=== PATIENT | male | born 1940 | race Caucasian/White ===

== ENCOUNTER → 2017-03-03 | Outpatient (CLI) | payer MEDICARE, OTHER ==
--- NOTE | 2017-03-04 10:10 | P.ARTDOP ---
Arterial Doppler LOWER EXTREMITY ARTERIAL DOPPLER: DATE OF SERVICE: 03/03/17 Reason for study: numbness and discoloration of the feet Doppler waveforms: atypical throughout on the right and to the popliteal on the left. Below the popliteal it is flat line on the left. Pulse volume recording: normal configuration to the right calf but blunted at the right ankle. Normal configuration at the left thigh and mildly blunted at the left calf and knee severely blunted at the ankle on the left Pressure gradients: above the low thigh on the right no pressure readings down on the left Ankle-brachial indices: 0.92 on the right and nothing recorded on the left Impression: []Suspect mild right fem-pop disease. Severe distal disease on the left. Clinical correlation recommended.
== END | disposition home or self-care (01) ==
LOC: RADUSWWP 10:45
PROVIDERS: ATTEND Internal Medicine
DX: I73.9 Peripheral vascular disease, unspecified (principal)
CPT/HCPCS: 93923

== ENCOUNTER 2017-03-23 06:22 | Day surgery (SDC) | payer MEDICARE, OTHER ==
[2017-03-18 15:49] VITALS: BMI 28.3
--- NOTE | 2017-03-19 11:07 | HP ---
DATE OF ADMISSION: CHIEF COMPLAINT: Left foot pain. HISTORY: The patient had previous complaints and was taken care of at the ID with stents in the left leg. He came in complaining of about a week to 10 days of typical rest pain of the left foot. There is some numbness and when he elevates it at night in bed he has pain in the foot. A lower extremity arterial Doppler done at [facility] shows very poor flow to the right foot. Medical history is positive for hypertension and arthritis. Surgical history is positive for multiple peripheral angioplasties on the left leg. Social history is positive for remote history of cigarette smoking. Current medications include: 1. Hydrochlorothiazide. 2. Plavix. 3. Aspirin. 4. Simvastatin. He has no known allergies. Family history is noncontributory. REVIEW OF SYSTEMS: Other than his chief complaint, he is totally unremarkable. Physical examination reveals a pleasant, alert, oriented, 76-year-old gentleman in no distress. He has no cervical mass or adenopathy, oral or ocular lesions or audible bruits. His lungs are well-aerated. His heart is in a regular rhythm. I hear no murmur. His abdomen is soft and benign. He has normal bilateral femoral pulses. He has no pulses below the femorals on either side. The ( )foot is slightly cooler than the ( ), but is quite viable in appearance. IMPRESSION: Occlusion of the previous interventions the left leg with rest pain left leg. Patient is to be admitted on March 23 for aortogram with runoff by Dr. Thapa. I have explained the operation/procedure to the patient, including the risks, benefits, side effects, alternative therapies (including not receiving the proposed treatment or service), the likelihood of the patient achieving his/her goals, and potential recuperation problems for the procedure/sedation/analgesia, as well as any blood products, if indicated. I also explained to the patient the risks, benefits, and side effects of the alternatives, as well as the risks related to not receiving the proposed procedure, care treatment or services.
[~2017-03-23 06:22] MED LIST: ALPRAZolam 0.25 MG TAB PO PRN; SODIUM CHLORIDE 0.9% 1,000 ML in EMPTY BAG 1 BAG IV ONE
[2017-03-23 07:07] VITALS: TEMP 98.1
[2017-03-23 07:08] LABS: Basophils # (A) 0.1 k/uL (0-0.2); Basophils % (A) 1 %; CH 32.8; CHCM 34.4; Eosinophils # (A) 0.5 k/uL (0-0.7); Eosinophils % (A) 9 %; HDW 2.74; HGB 14.4 gm/dL (13.0-17.5); Luc # (Auto) 0.15; Luc % (Auto) 3; Lymphocytes # (A) 1.3 k/uL (1.0-4.8); Lymphocytes % (A) 22 %; MCH 32.7 pg (25.0-35.0); MCHC 34.1 g/dL (31.0-37.0); MCV 95.8 fL (80.0-100.0); Mean Platelet Volume 7.8; Monocytes # (A) 0.4 k/uL (0-1.0); Monocytes % (A) 6 %; Neutrophils # (A) 3.4 k/uL (1.3-7.7); Neutrophils % (A) 59 %; RBC 4.39 m/uL (4.30-5.90); RDW 13.4 % (11.5-15.5); WBC 5.7 k/uL (3.8-10.6); WBC (Perox) 5.75
[2017-03-23 07:21] LABS: Anion Gap 11 mmol/L; Blood Urea Nitrogen 25 mg/dL (9-20); Calcium 9.1 mg/dL (8.4-10.2); Carbon Dioxide 26 mmol/L (22-30); Chloride 105 mmol/L (98-107); Glucose 105 mg/dL (74-99); Non-African American GFR(MDRD) >60 (>60 ml/min/1.73 sqM); Potassium 3.8 mmol/L (3.5-5.1); Sodium 142 mmol/L (137-145)
[2017-03-23] MEDS ORDERED: LIDOCAINE 2% INJ 20 MG/ML (20 ML MDV) ONE (07:29)
[2017-03-23] MEDS ORDERED: MIDAZOLAM 2 MG/2 ML VIAL ONE (07:29)
[2017-03-23] MEDS ORDERED: MIDAZOLAM 2 MG/2 ML VIAL IVP ONE (07:56)
[2017-03-23] MEDS ORDERED: LIDOCAINE 2% INJ 20 MG/ML SQ ONE (08:00)
[2017-03-23] MEDS ORDERED: fentaNYL (PF) 50 MCG/ML 2 ML AMP ONE (08:00)
[2017-03-23] MEDS ORDERED: fentaNYL (PF) 50 MCG/ML 2 ML AMP IV ONE (08:02)
[2017-03-23] MEDS ORDERED: SODIUM CHLORIDE 0.9% 1,000 ML IV SCH (08:30)
[2017-03-23] MEDS ORDERED: IODIXANOL 320 MG/ML 100 ML INTRAARTER ONE (08:34)
[2017-03-23 14:45] VITALS: BP 150/69; PULSE 64; RESP 18
--- NOTE | 2017-03-23 16:36 | PCN ---
DATE OF PROCEDURE: 03/23/2017 PERFORMING PHYSICIAN: Eloy Thapa M.D., retail analytics manager. PROCEDURES PERFORMED: 1. Abdominal aortogram. 2. Bilateral lower extremity runoff. 3. Selective left external iliac artery angiogram. 4. Selective right common femoral artery angiogram. INDICATION: This is a pleasant 76-year-old gentleman who sees Dr. Medina as an outpatient who was diagnosed with critical limb ischemia and resting pain involving the left foot. He was brought in today to undergo a peripheral angiogram. APPROACH: Right common femoral artery. COMPLICATIONS: None. LEVEL OF SEDATION: Moderate, with sedation length about half an hour. PROCEDURE DESCRIPTION: After obtaining informed consent, the patient was brought to the cardiac analyst microbiology lab. The right common femoral artery was cannulated using micropuncture technique. Under ultrasound guidance, the micropuncture wire passed easily. Then I placed a 5 Maori sheath in the right common femoral artery. Subsequently I did an abdominal aortogram and bilateral lower extremity runoff using a pigtail catheter, which was initially placed at the level of the renal arteries. Then it was pulled into above the bifurcation of the aorta. I did select the left external iliac artery to do left lower extremity runoff. Then I injected through the sheath in the right groin to do right leg runoff. The procedure was completed without any complications. SELECTIVE PERIPHERAL ANGIOGRAM: 1. Aorta is calcified with mild disease only. 2. Common iliac arteries. The right and left common external iliac arteries are angiographically normal. 3. External iliac arteries. The right and left external iliac arteries are angiographically normal. 4. Internal iliac arteries. The right and left internal iliac arteries are angiographically normal as well. 5. Femoral arteries. The right and left femoral arteries are angiographically normal. 6. Profundae. The right and left profundae are patent. 7. The superficial femoral arteries are occluded bilaterally. There is a long area of occlusion on the left side which seems to be in-stent occlusion and a short area of occlusion on the right side. 8. Below the knee. There is 3-vessel runoff below the knee bilaterally. CONCLUSION: 1. Mild aortoiliac disease. 2. Severe femoropopliteal disease with occluded bilateral superficial femoral arteries.
== END 2017-03-23 15:30 | disposition home or self-care (01) ==
LOC: CATHCVL 06:22
PROVIDERS: ATTEND Internal Medicine Interventional Cardiology
DX: I77.9 Disorder of arteries and arterioles, unspecified (principal); I70.0 Atherosclerosis of aorta; I99.8 Other disorder of circulatory system; I73.9 Peripheral vascular disease, unspecified; I10 Essential (primary) hypertension; M19.90 Unspecified osteoarthritis, unspecified site; Z79.02 Long term (current) use of antithrombotics/antiplatelets; Z79.82 Long term (current) use of aspirin; Z79.899 Other long term (current) drug therapy; Z87.891 Personal history of nicotine dependence
CPT/HCPCS: 36246; 75625; 75716; 76937; 80048; 85025; 99152; 99153; C1894; C1769 ×4; J2001; J2250; Q9967; J3010

== ENCOUNTER → 2017-04-02 | Outpatient (CLI) | payer MEDICARE, OTHER ==
[2017-04-02 10:45] LABS: INR 1.1 (<1.1); Partial Thromboplastin Time 25.1 sec (22.0-30.0); Prothrombin Time 11.2 sec (9.0-12.0)
== END | disposition home or self-care (01) ==
LOC: LABPAT 09:59
PROVIDERS: ATTEND Thoracic Surgery (Cardiothoracic Vascular Surgery)
DX: Z01.810 Encounter for preprocedural cardiovascular examination (principal); Z01.818 Encounter for other preprocedural examination; Z51.81 Encounter for therapeutic drug level monitoring; Z79.01 Long term (current) use of anticoagulants
CPT/HCPCS: 85610; 85730

== ENCOUNTER 2017-04-08 07:33 | Day surgery (SDC) | payer MEDICARE, OTHER ==
[2017-04-07 08:55] VITALS: BMI 28.3
[~2017-04-08 07:33] MED LIST changes: +ALPRAZolam 0.5 MG TAB PO PRN; +ASPIRIN 325 MG TAB PO STA; +ATORVASTATIN 80 MG TAB PO STA; +NITROGLYCERIN SL TABS 0.4 MG TAB SUBLINGUAL PRN
[2017-04-08 07:48] VITALS: TEMP 97.5
[2017-04-08] MEDS ORDERED: HYDROmorphone 1 MG/ML 1 ML SYRINGE ONE (08:15)
[2017-04-08] MEDS ORDERED: VERAPAMIL 2.5 MG/ML 2 ML AMP ONE (08:35)
[2017-04-08] MEDS ORDERED: MIDAZOLAM 2 MG/2 ML VIAL ONE (08:35)
[2017-04-08] MEDS ORDERED: LIDOCAINE 2% INJ 20 MG/ML (20 ML MDV) ONE (08:35)
[2017-04-08] MEDS ORDERED: diphenhydrAMINE 50 MG/ML 1 ML VIAL ONE (08:35)
[2017-04-08] MEDS ORDERED: HEPARIN SODIUM 1,000 UNIT/ML VIAL ONE (08:35)
[2017-04-08] MEDS ORDERED: MIDAZOLAM 2 MG/2 ML VIAL IV ONE (08:50)
[2017-04-08] MEDS ORDERED: diphenhydrAMINE 50 MG/ML 1 ML VIAL IVP ONE (08:50)
[2017-04-08] MEDS ORDERED: LIDOCAINE 2% INJ 20 MG/ML SQ ONE (08:56)
[2017-04-08] MEDS ORDERED: VERAPAMIL SYRINGE (5 MG/10 ML) INTRAARTER ONE (08:56)
[2017-04-08] MEDS ORDERED: BIVALIRUDIN BOLUS 250 MG/50 ML IV ONE (09:19)
[2017-04-08] MEDS ORDERED: BIVALIRUDIN 250 MG in SODIUM CHLORIDE 0.9% 35 ML IV ONE (09:19)
[2017-04-08] MEDS ORDERED: HYDROmorphone 2 MG/ML 1 ML SYRINGE ONE (09:24)
[2017-04-08] MEDS ORDERED: HYDROmorphone 2 MG/ML 1 ML SYRINGE IVP ONE (09:24)
[2017-04-08] MEDS ORDERED: ADENOSINE 90 MG in SODIUM CHLORIDE 0.9% 60 ML IVP ONE (09:28)
[2017-04-08] MEDS ORDERED: IOHEXOL 350 MG/ML 125ML BOTTLE INJ ONE (09:45)
[2017-04-08] MEDS ORDERED: RX INFO: IV CONTRAST WAS GIVEN 1 EACH MISC MISCELLANE PRN (09:56)
[2017-04-08] MEDS ORDERED: SODIUM CHLORIDE 0.9% 1,000 ML IV SCH (10:00)
[2017-04-08 11:13] VITALS: PULSE 50; RESP 16
[2017-04-08 11:59] VITALS: BP 141/60
--- NOTE | 2017-04-08 20:27 | CC ---
DATE OF SERVICE: Performing physician: Eloy Thapa M.D., software development intern. PROCEDURE PERFORMED: 1. Selective right and left coronary angiogram. 2. Left heart catheterization. 3. Fractional flow reserve of the left circumflex coronary artery. 4. Fractional flow reserve of the LAD as well. INDICATION: This is a pleasant 76-year-old gentleman who is known to have severe peripheral arterial disease and evidence of critical limb ischemia who was scheduled to have femoropopliteal bypass surgery by Dr. Vences in the next couple of days. He underwent myocardial perfusion imaging stress test and that showed anterior ischemia and the patient was brought today to undergo a heart catheterization. Approach: Right radial artery. COMPLICATIONS: None. Level of sedation: Moderate with a sedation length of 50 minutes. PROCEDURE DESCRIPTION: After obtaining an informed consent, the patient was brought to the cardiac hot plate plywood press laborer. Right radial artery was cannulated using micropuncture technique. The micropuncture wire passed easily, then I placed a 6 [place] Island[place] sheath in the right radial artery. Subsequently I gave the patient 2 mg of verapamil IA and 3000 units of heparin IV. After that, I did selective right and left coronary angiogram using JR4 and JL 3.5 catheters. After that, I did a left heart catheterization using JL 3.5 catheter, which crossed aortic valve and then I did pullback. After that, I did an FFR of the left circumflex and LAD. Please see separate paragraph for that. SELECTIVE CORONARY ANGIOGRAM: 1. The right coronary artery is a large-caliber vessel and it is a dominant vessel. It has mild disease in the proximal portion. The mid portion is angiographically normal and gives rise into a small acute marginal branch, and the RCA distally appeared to be angiographically normal and bifurcates into PDA and PLV branches; both are angiographically normal. 2. The left main is calcified but otherwise angiographically normal. It bifurcates into the left circumflex and left anterior descending artery. 3. Circumflex is a large-caliber vessel and it is a nondominant vessel. The proximal left circumflex appeared to have mild disease only. The mid left circumflex appeared to have a lesion long tubular lesion in the range of 60%, but by FFR came in to be ischemic at 0.8. The left circumflex in the midportion gives rise into a large acute obtuse marginal branch, which seems to be angiographically normal and distally become angiographically normal. 4. Left anterior descending artery: The proximal LAD is heavily calcified with a lesion that seems to be in the range of 50% to 60%. The mid LAD and distal LAD appeared to be angiographically normal. The LAD gives rises into 2 small diagonal branches; they are angiographically normal. HEMODYNAMICS: The left ventricular end-diastolic pressure was 20 mmHg and no gradient was identified across the aortic valve. FFR of the left circumflex and LAD: Anticoagulation was initiated using Angiomax. Subsequently and after zeroing the Doppler wire and equalizing between the Doppler wire and the guiding catheter, which was JL 3.5 guiding catheter, we did an FFR per IV adenosine infusion and an FFR came in to be on the left circumflex at 0.78, which is ischemic. I did an FFR of the LAD and that came in to be 0.58 which is a bit questionable and I had some issues with the Doppler wire at that point. CONCLUSION: 1. Calcified right and left coronary systems. 2. Mildly disease involving the right coronary artery. 3. Intermediate disease involving the left circumflex. 4. Intermediate disease involving the LAD. 5. Ischemic FFR of the left circumflex which came in to be at 0.78. 6. Questionable FFR of the LAD as well. POSTPROCEDURE MANAGEMENT: 1. Maximize medical treatment at this point. 2. The patient will pursue his bypass surgery. 3. Bring the patient back after the surgery to undergo stenting of the left circumflex and to take further look on the LAD.
== END 2017-04-08 15:57 | disposition home or self-care (01) ==
LOC: CATHCVL 07:33
PROVIDERS: ATTEND Internal Medicine Interventional Cardiology
DX: I25.110 Atherosclerotic heart disease of native coronary artery with unstable angina pectoris (principal); R94.39 Abnormal result of other cardiovascular function study; I73.9 Peripheral vascular disease, unspecified; I77.89 Other specified disorders of arteries and arterioles; I10 Essential (primary) hypertension; E78.00 Pure hypercholesterolemia, unspecified; Z82.49 Family history of ischemic heart disease and other diseases of the circulatory system; Z79.02 Long term (current) use of antithrombotics/antiplatelets; Z79.82 Long term (current) use of aspirin; Z79.899 Other long term (current) drug therapy; Z87.891 Personal history of nicotine dependence
CPT/HCPCS: 93571; 93572; 93458; 99152; 99153 ×3; C1887; C1894; C1769 ×2; J2001; J2250; J1170 ×2; J1200; J0583; J0153; J1644; Q9967

== ENCOUNTER 2017-05-08 10:43 | Inpatient (IN) | payer MEDICARE, OTHER ==
[2017-05-08] MEDS ORDERED: SODIUM CHLORIDE 0.9% 1,000 ML IV STA (11:01)
--- NOTE | 2017-05-08 11:04 | ED ---
General Adult HPI <Vincent Angel - Last Filed: 05/08/17 14:59> - General Source: patient, RN notes reviewed Mode of arrival: wheelchair Limitations: no limitations <Jarvis Menjivar - Last Filed: 05/08/17 15:07> - General Chief complaint: Recheck/Abnormal Lab/Rx Stated complaint: post op infection Time Seen by Provider: 05/08/17 10:52 - History of Present Illness Initial comments: Patient 76-year-old male who presents emergency room today with a chief complaint of outpatient treatment failure of a infected surgical incision. Patient does admit that he did have bypass performed of the left leg due to arterial occlusion approximately 7 weeks ago. He states he noticed a infection to the incision site approximately a week after the surgery. States he went to his family doctor started him on antibiotics. He states been taking clindamycin as prescribed. States he had a follow-up appointment with his PCP this morning and was advised coming here to the emergency room for admission due to outpatient treatment failure. States that the incision site has opened up and become larger. He denies any other complaints or symptoms. Patient denies any recent fever, chills, shortness of breath, chest pain, back pain, abdominal pain, nausea or vomiting, numbness or tingling, dysuria or hematuria, constipation or diarrhea, headaches or visual changes, or any other complaints. (Jarvis Menjivar) - Related Data Home Medications Medication Instructions Recorded Confirmed Aspirin [Adult Low Dose Aspirin EC] 81 mg PO DAILY 03/18/17 05/08/17 Clopidogrel Bisulfate [Plavix] 75 mg PO DAILY 03/18/17 05/08/17 Dorzolamide/Timolol/Pf [Cosopt Pf 1 applicator BOTH EYES BID 03/18/17 05/08/17 2%/5% Ophth Droperette] Hydrochlorothiazide 12.5 mg PO QAM 03/18/17 05/08/17 Latanoprost [Xalatan 0.005%] 1 drop BOTH EYES DAILY@1400 03/18/17 05/08/17 Simvastatin [Zocor] 20 mg PO HS 03/18/17 05/08/17 Clindamycin HCl 300 mg PO Q8H 05/08/17 05/08/17 Mupirocin 2% Oint [Bactroban 2% 1 applic TOPICAL BID 05/08/17 05/08/17 Oint] oxyCODONE-APAP 5-325MG [Percocet 1 tab PO Q4H PRN 05/08/17 05/08/17 5-325 mg] Allergies Allergy/AdvReac Type Severity Reaction Status Date / Time dipyridamole Allergy JOINT AND Verified 05/08/17 10:51 MUSCLE PAIN Review of Systems ROS Other: All systems not noted in ROS Statement are negative. <Vincent Angel - Last Filed: 05/08/17 14:59> ROS Other: All systems not noted in ROS Statement are negative. <Jarvis Menjivar - Last Filed: 05/08/17 15:07> ROS Statement: Those systems with pertinent positive or pertinent negative responses have been documented in the HPI. Past Medical History Past Medical History: CVA/TIA, Deep Vein Thrombosis (DVT), Eye Disorder, Hypertension, Osteoarthritis (OA), Vascular Disorder Additional Past Medical History / Comment(s): TIA long time ago, PVD, swelling of left foot, uses walker or scooter for longer distances, GLAUCOMA History of Any Multi-Drug Resistant Organisms: None Reported Additional Past Surgical History / Comment(s): 3 stents in left leg, angioplasty nicole legs, aortogram, nicole cataracts, AORTPGRAM Past Anesthesia/Blood Transfusion Reactions: No Reported Reaction Past Psychological History: No Psychological Hx Reported Smoking Status: Former smoker Past Alcohol Use History: Occasional Past Drug Use History: None Reported - Past Family History Mother Family Medical History: No Reported History <Jarvis Menjivar - Last Filed: 05/08/17 15:07> General Exam <Vincent Angel - Last Filed: 05/08/17 14:59> Limitations: no limitations <Jarvis Menjivar - Last Filed: 05/08/17 15:07> - General Exam Comments Initial Comments: General: The patient is awake and alert, in no distress, and does not appear acutely ill. Eye: Pupils are equal, round and reactive to light, extra-ocular movements are intact. No nystagmus. There is normal conjunctiva bilaterally. No signs of icterus. Ears, nose, mouth and throat: There are moist mucous membranes and no oral lesions. Neck: The neck is supple, there is no tenderness or JVD. Cardiovascular: There is a regular rate and rhythm. No murmur, rub or gallop is appreciated. Respiratory: Lungs are clear to auscultation, respirations are non-labored, breath sounds are equal. No wheezes, stridor, rales, or rhonchi. Gastrointestinal: Soft, non-distended, non-tender abdomen without masses or organomegaly noted. There is no rebound or guarding present. No CVA tenderness. Bowel sounds are unremarkable. Musculoskeletal: Normal ROM, no tenderness. Strength 5/5. Sensation intact. Pulses equal bilaterally 2+. Neurological: A&O x 3. CN II-XII intact, There are no obvious motor or sensory deficits. Coordination appears grossly intact. Speech is normal. Skin: Patient does have surgical incision that is dehiscence measures approximately 6-7 cm in length. There is a yellow drainage with mild redness erythema around the incision site. Psychiatric: Cooperative, appropriate mood & affect, normal judgment. (Jarvis Menjivar) Course <Vincent Angel - Last Filed: 05/08/17 14:59> <Jarvis Menjivar - Last Filed: 05/08/17 15:07> Vital Signs 05/08/17 05/08/17 10:47 12:05 Temperature 97 F L 97.0 F L Pulse Rate 68 68 Respiratory 18 18 Rate Blood Pressure 147/68 147/65 O2 Sat by Pulse 98 98 Oximetry - Reevaluation(s) Reevaluation #1: 05/08/17 13:49 Case was discussed with Dr. Engel who recommends calling Dr. Latif and will admit if he is okay with that. Case was discussed with Dr. Latif, who will come evaluate. 05/08/17 13:59 Dr. Latif did evaluate the patient. It turns out patient does see a vascular surgeon does surgeries at the hospital here, Dr. Villasenor and he will be paged. 05/08/17 14:54 Case was discussed with Dr. Mccollum who states he is out of town and recommends calling Dr. Medina. If he is not available. Patient transferred back to [place]. 05/08/17 14:59 Case was discussed with Dr. Medina who will consult and does want medical admission. Consult with Dr. Hedrick. (Vicnent Angel) Medical Decision Making - Lab Data Result diagrams: 05/08/17 12:00 05/08/17 12:00 <Vincent Angel - Last Filed: 05/08/17 14:59> - Lab Data Result diagrams: 05/08/17 12:00 05/08/17 12:00 <Jarvis Menjivar - Last Filed: 05/08/17 15:07> - Lab Data Lab Results 05/08/17 05/08/17 Range/Units 12:00 12:00 WBC 4.8 (3.8-10.6) k/uL RBC 3.96 L (4.30-5.90) m/uL Hgb 12.5 L (13.0-17.5) gm/dL Hct 36.7 L (39.0-53.0) % MCV 92.8 (80.0-100.0) fL MCH 31.6 (25.0-35.0) pg MCHC 34.1 (31.0-37.0) g/dL RDW 15.1 (11.5-15.5) % Plt Count 252 (150-450) k/uL Neutrophils % 67 % Lymphocytes % 16 % Monocytes % 6 % Eosinophils % 7 % Basophils % 1 % Neutrophils # 3.2 (1.3-7.7) k/uL Lymphocytes # 0.8 L (1.0-4.8) k/uL Monocytes # 0.3 (0-1.0) k/uL Eosinophils # 0.4 (0-0.7) k/uL Basophils # 0.0 (0-0.2) k/uL Sodium 142 (137-145) mmol/L Potassium 3.6 (3.5-5.1) mmol/L Chloride 102 (98-107) mmol/L Carbon Dioxide 28 (22-30) mmol/L Anion Gap 12 mmol/L BUN 25 H (9-20) mg/dL Creatinine 1.02 (0.66-1.25) mg/dL Est GFR (MDRD) Af Amer >60 (>60 ml/min/1.73 sqM) Est GFR (MDRD) Non-Af >60 (>60 ml/min/1.73 sqM) Glucose 105 H (74-99) mg/dL Calcium 9.4 (8.4-10.2) mg/dL Total Bilirubin 0.8 (0.2-1.3) mg/dL AST 24 (17-59) U/L ALT 26 (21-72) U/L Alkaline Phosphatase 73 (38-126) U/L Total Protein 7.2 (6.3-8.2) g/dL Albumin 4.4 (3.5-5.0) g/dL Disposition <Vincent Angel - Last Filed: 05/08/17 14:59> Time of Disposition: 15:01 <Jarvis Menjivar - Last Filed: 05/08/17 15:07> Clinical Impression: Postoperative wound infection Disposition: ADMITTED IP TO THIS HOSP Condition: Stable Referrals: Stefanie Mccullough MD [Primary Care Provider] - 1-2 days
[2017-05-08] MEDS ORDERED: AMPICILLIN-SULBACTAM 3 GM in SODIUM CHLORIDE 0.9% 100 ML IVPB STA (11:23)
[2017-05-08] MEDS ORDERED: IV VANCOMYCIN PER PHARMACY 1 EACH MISC MISCELLANE PRN (11:23)
[2017-05-08] MEDS ORDERED: VANCOMYCIN 1,250 MG in SODIUM CHLORIDE 0.9% 250 ML IVPB ONE (11:45)
[2017-05-08 12:17] LABS: ALT 26 U/L (21-72); AST 24 U/L (17-59); Alkaline Phosphatase 73 U/L (38-126); Anion Gap 12 mmol/L; Blood Urea Nitrogen 25 mg/dL (9-20); Calcium 9.4 mg/dL (8.4-10.2); Carbon Dioxide 28 mmol/L (22-30); Chloride 102 mmol/L (98-107); Glucose 105 mg/dL (74-99); Non-African American GFR(MDRD) >60 (>60 ml/min/1.73 sqM); Potassium 3.6 mmol/L (3.5-5.1); Sodium 142 mmol/L (137-145); Total Bilirubin 0.8 mg/dL (0.2-1.3); Total Protein 7.2 g/dL (6.3-8.2)
[2017-05-08 12:22] LABS: Basophils % (A) 1 %; CHCM 33.5; Eosinophils # (A) 0.4 k/uL (0-0.7); Eosinophils % (A) 7 %; HCT 36.7 % (39.0-53.0); HDW 3.26; HGB 12.5 gm/dL (13.0-17.5); Luc # (Auto) 0.12; Luc % (Auto) 3; Lymphocytes # (A) 0.8 k/uL (1.0-4.8); Lymphocytes % (A) 16 %; MCH 31.6 pg (25.0-35.0); MCHC 34.1 g/dL (31.0-37.0); MCV 92.8 fL (80.0-100.0); Mean Platelet Volume 7.7; Monocytes # (A) 0.3 k/uL (0-1.0); Monocytes % (A) 6 %; Neutrophils # (A) 3.2 k/uL (1.3-7.7); Neutrophils % (A) 67 %; RBC 3.96 m/uL (4.30-5.90); RDW 15.1 % (11.5-15.5); WBC 4.8 k/uL (3.8-10.6); WBC (Perox) 4.93
--- NOTE | 2017-05-08 14:09 | US ---
EXAMINATION TYPE: US venous doppler duplex LE LT DATE OF EXAM: 05/08/2017 1:10 PM COMPARISON: NONE CLINICAL HISTORY: Pain. Left leg edema SIDE PERFORMED: Left TECHNIQUE: The lower extremity deep venous system is examined utilizing real time linear array sonog lillie with graded compression, doppler sonography and color-flow sonography. VESSELS IMAGED: External Iliac Vein (EIV) Common Femoral Vein Deep Femoral Vein Greater Saphenous Vein * Femoral Vein Popliteal Vein Small Saphenous Vein * Proximal Calf Veins (* superficial vessels) Exam somewhat limited in groin area do to surgery patient had open wounds unable to compress hard, co loree flow and spontaneous flow visualized. Left Leg: Negative for DVT No popliteal fossa lesion is seen. IMPRESSION: THIS EXAMINATION IS NEGATIVE FOR DVT WITHIN THE LEFT LEG.
[2017-05-08] MEDS ORDERED: NALOXONE 0.4 MG/ML 1 ML VIAL IV PRN (15:02)
[2017-05-08] MEDS ORDERED: HYDROcodone/APAP 5-325MG 1 EACH TAB PO PRN (15:02)
[2017-05-08] MEDS ORDERED: ONDANSETRON 4 MG/2 ML VIAL IVP PRN (15:02)
[2017-05-08] MEDS ORDERED: SODIUM CHLORIDE 0.9% 1,000 ML IV ONE (15:02)
[2017-05-08] MEDS ORDERED: oxyCODONE-APAP 5-325MG 1 EACH TAB PO PRN (15:05)
[2017-05-08] MEDS: HYDROmorphone 1 MG/ML 1 ML SYRINGE IV PRN (16:42)
[2017-05-08] MEDS: AMPICILLIN-SULBACTAM 3 GM in SODIUM CHLORIDE 0.9% 100 ML IVPB SCH (21:39)
[2017-05-08] MEDS: ATORVASTATIN 10 MG TAB PO SCH (21:40)
[2017-05-09] MEDS: HYDROmorphone 1 MG/ML 1 ML SYRINGE IV PRN ×3 (01:18→21:49)
[2017-05-09] MEDS: AMPICILLIN-SULBACTAM 3 GM in SODIUM CHLORIDE 0.9% 100 ML IVPB SCH ×3 (04:11→19:56)
[2017-05-09 07:47] LABS: Basophils % (A) 1 %; CH 30.7; CHCM 32.4; Eosinophils # (A) 0.4 k/uL (0-0.7); Eosinophils % (A) 7 %; HCT 34.3 % (39.0-53.0); HDW 3.26; HGB 11.2 gm/dL (13.0-17.5); Hypochromasia Slight; Luc # (Auto) 0.11; Luc % (Auto) 2; Lymphocytes % (A) 21 %; MCH 31.2 pg (25.0-35.0); MCHC 32.8 g/dL (31.0-37.0); MCV 95.3 fL (80.0-100.0); Monocytes # (A) 0.3 k/uL (0-1.0); Monocytes % (A) 6 %; Neutrophils # (A) 2.9 k/uL (1.3-7.7); Neutrophils % (A) 62 %; RDW 14.9 % (11.5-15.5); WBC 4.7 k/uL (3.8-10.6); WBC (Perox) 4.85
[2017-05-09 07:59] LABS: ALT 23 U/L (21-72); AST 21 U/L (17-59); Alkaline Phosphatase 70 U/L (38-126); Anion Gap 8 mmol/L; Blood Urea Nitrogen 20 mg/dL (9-20); Calcium 8.6 mg/dL (8.4-10.2); Carbon Dioxide 27 mmol/L (22-30); Chloride 105 mmol/L (98-107); Glucose 99 mg/dL (74-99); Non-African American GFR(MDRD) >60 (>60 ml/min/1.73 sqM); Potassium 3.6 mmol/L (3.5-5.1); Sodium 140 mmol/L (137-145); Total Bilirubin 0.6 mg/dL (0.2-1.3)
[2017-05-09] MEDS: ASPIRIN 81 MG CHEW PO SCH (08:58)
[2017-05-09] MEDS: DORZOLAMIDE-TIMOLOL 2-0.5% DROPS 10 ML BTL BOTH EYES SCH ×2 (08:58→21:48)
[2017-05-09] MEDS: HYDROCHLOROTHIAZIDE 25 MG TAB PO SCH (08:58)
[2017-05-09] MEDS ORDERED: VANCOMYCIN 1,250 MG in SODIUM CHLORIDE 0.9% 250 ML IVPB SCH (09:00)
--- NOTE | 2017-05-09 10:14 | P.GSCN ---
History of Present Illness Consult date: 05/09/17 Reason for Consult: Postoperative infection Requesting physician: Sita Engel History of present illness: This patient is about 10-14 days post-left fem-pop in situ bypass. He recently developed drainage and swelling in the left groin. Patient denies chills. His left leg has improved dramatically since his bypass otherwise. Review of Systems All systems: negative Past Medical History Past Medical History: CVA/TIA, Deep Vein Thrombosis (DVT), Eye Disorder, Hypertension, Osteoarthritis (OA), Vascular Disorder Additional Past Medical History / Comment(s): TIA long time ago, PVD, swelling of left foot, uses walker or scooter for longer distances, GLAUCOMA History of Any Multi-Drug Resistant Organisms: None Reported Past Surgical History: Heart Catheterization Additional Past Surgical History / Comment(s): 3 stents in left leg, angioplasty nicole legs, aortogram, nicole cataracts, AORTPGRAM,FEMPOP BYPASS LT LEG, STRESS TEST Past Anesthesia/Blood Transfusion Reactions: No Reported Reaction Smoking Status: Former smoker - Past Family History Mother Family Medical History: Diabetes Mellitus Father Family Medical History: Coronary Artery Disease (CAD), Rheumatoid Arthritis (RA) Additional Family Medical History / Comment(s): ARTERIAL SCLEROSIS Medications and Allergies Home Medications Medication Instructions Recorded Confirmed Type Aspirin [Adult Low Dose Aspirin EC] 81 mg PO DAILY 03/18/17 05/08/17 History Clopidogrel Bisulfate [Plavix] 75 mg PO DAILY 03/18/17 05/08/17 History Dorzolamide/Timolol/Pf [Cosopt Pf 1 applicator BOTH EYES BID 03/18/17 05/08/17 History 2%/5% Ophth Droperette] Hydrochlorothiazide 12.5 mg PO QAM 03/18/17 05/08/17 History Latanoprost [Xalatan 0.005%] 1 drop BOTH EYES DAILY@1400 03/18/17 05/08/17 History Simvastatin [Zocor] 20 mg PO HS 03/18/17 05/08/17 History Clindamycin HCl 300 mg PO Q8H 05/08/17 05/08/17 History Mupirocin 2% Oint [Bactroban 2% 1 applic TOPICAL BID 05/08/17 05/08/17 History Oint] oxyCODONE-APAP 5-325MG [Percocet 1 tab PO Q4H PRN 05/08/17 05/08/17 History 5-325 mg] Allergies Allergy/AdvReac Type Severity Reaction Status Date / Time dipyridamole Allergy JOINT AND Verified 05/08/17 10:51 MUSCLE PAIN Surgical - Exam Osteopathic Statement: *. No significant issues noted on an osteopathic structural exam other than those noted in the History and Physical/Consult. Vital Signs Temp Pulse Resp BP Pulse Ox 97 F L 68 18 147/68 98 05/08/17 10:47 05/08/17 10:47 05/08/17 10:47 05/08/17 10:47 05/08/17 10:47 - General well developed, well nourished, no distress - Eyes normal ocular movement, no icteric - ENT no hearing loss, no congestion - Neck no masses, no bruits, trachea midline - Respiratory normal expansion, normal respiratory effort, clear to auscultation - Cardiovascular Rhythm: regular - Abdomen Abdomen: soft, non tender, no guarding, no rigid, no rebound - Integumentary In the left groin the patient has an area about 10 cm x 1 cm which has dehisced. There is mild redness around it. It does appear to be limited to the subcutaneous tissue. There is no significant purulence at this time. The foot is otherwise pink and warm. no rash, no abnormal pigmentation - Neurologic no disoriented, no combative - Psychiatric oriented to time, oriented to person, oriented to place, speech is normal, memory intact Results - Labs 05/09/17 07:12 05/09/17 07:12 Abnormal Lab Results - Last 24 Hours (Table) 05/08/17 05/08/17 05/09/17 Range/Units 12:00 12:00 07:12 RBC 3.96 L 3.60 L (4.30-5.90) m/uL Hgb 12.5 L 11.2 L (13.0-17.5) gm/dL Hct 36.7 L 34.3 L (39.0-53.0) % Lymphocytes # 0.8 L (1.0-4.8) k/uL BUN 25 H (9-20) mg/dL Glucose 105 H (74-99) mg/dL Total Protein (6.3-8.2) g/dL 05/09/17 Range/Units 07:12 RBC (4.30-5.90) m/uL Hgb (13.0-17.5) gm/dL Hct (39.0-53.0) % Lymphocytes # (1.0-4.8) k/uL BUN (9-20) mg/dL Glucose (74-99) mg/dL Total Protein 6.0 L (6.3-8.2) g/dL Microbiology - Last 24 Hours (Table) 05/08/17 12:00 Wound Culture - Preliminary Groin Diabetes panel 05/08/17 05/09/17 Range/Units 12:00 07:12 Sodium 142 140 (137-145) mmol/L Potassium 3.6 3.6 (3.5-5.1) mmol/L Chloride 102 105 (98-107) mmol/L Carbon Dioxide 28 27 (22-30) mmol/L BUN 25 H 20 (9-20) mg/dL Creatinine 1.02 0.89 (0.66-1.25) mg/dL Glucose 105 H 99 (74-99) mg/dL Calcium 9.4 8.6 (8.4-10.2) mg/dL AST 24 21 (17-59) U/L ALT 26 23 (21-72) U/L Alkaline Phosphatase 73 70 (38-126) U/L Total Protein 7.2 6.0 L (6.3-8.2) g/dL Albumin 4.4 3.6 (3.5-5.0) g/dL Calcium panel 05/08/17 05/09/17 Range/Units 12:00 07:12 Calcium 9.4 8.6 (8.4-10.2) mg/dL Albumin 4.4 3.6 (3.5-5.0) g/dL Pituitary panel 05/08/17 05/09/17 Range/Units 12:00 07:12 Sodium 142 140 (137-145) mmol/L Potassium 3.6 3.6 (3.5-5.1) mmol/L Chloride 102 105 (98-107) mmol/L Carbon Dioxide 28 27 (22-30) mmol/L BUN 25 H 20 (9-20) mg/dL Creatinine 1.02 0.89 (0.66-1.25) mg/dL Glucose 105 H 99 (74-99) mg/dL Calcium 9.4 8.6 (8.4-10.2) mg/dL Adrenal panel 05/08/17 05/09/17 Range/Units 12:00 07:12 Sodium 142 140 (137-145) mmol/L Potassium 3.6 3.6 (3.5-5.1) mmol/L Chloride 102 105 (98-107) mmol/L Carbon Dioxide 28 27 (22-30) mmol/L BUN 25 H 20 (9-20) mg/dL Creatinine 1.02 0.89 (0.66-1.25) mg/dL Glucose 105 H 99 (74-99) mg/dL Calcium 9.4 8.6 (8.4-10.2) mg/dL Total Bilirubin 0.8 0.6 (0.2-1.3) mg/dL AST 24 21 (17-59) U/L ALT 26 23 (21-72) U/L Alkaline Phosphatase 73 70 (38-126) U/L Total Protein 7.2 6.0 L (6.3-8.2) g/dL Albumin 4.4 3.6 (3.5-5.0) g/dL Assessment and Plan (1) Postoperative wound infection Status: Acute Plan: The patient appears to have had an area of skin necrosis and dehiscence with secondary infection. He is currently being treated appropriately with antibiotics. This will be adjusted by Dr. Hedrick. I have shown nursing staff how to change the dressings. We will utilize for a short-term half-strength peroxide with wound packing. Within about 48 hours we will switch over to Santyl and daily dressings. We will then, when granulation starts, switch over to a silver product. Until this is fully stabilize the patient is to remain somewhat flat with the legs elevated. He can be upright to eat or go to the bathroom. I am optimistic about the doses his still somewhat guarded.
[2017-05-09] MEDS ORDERED: HYDROGEN PEROXIDE BOTTLE TOPICAL STA ×2 (11:06→11:16)
[2017-05-09 13:00] VITALS: BMI 27.6
[2017-05-09] MEDS: HEPARIN SODIUM,PORCINE 5,000 UNIT/ML 1 ML VIAL SQ SCH ×2 (15:43→21:48)
[2017-05-09] MEDS: LATANOPROST 0.005% OPHTH DROPS 2.5 ML BTL BOTH EYES SCH (15:50)
[2017-05-09] MEDS: ATORVASTATIN 10 MG TAB PO SCH (21:47)
[2017-05-09] MEDS: VANCOMYCIN 1,250 MG in SODIUM CHLORIDE 0.9% 250 ML IVPB SCH (21:48)
[2017-05-10] MEDS: AMPICILLIN-SULBACTAM 3 GM in SODIUM CHLORIDE 0.9% 100 ML IVPB SCH ×3 (04:23→20:00)
[2017-05-10] MEDS: HYDROmorphone 1 MG/ML 1 ML SYRINGE IV PRN ×2 (06:23→16:18)
[2017-05-10 08:14] LABS: Basophils % (A) 1 %; CH 30.6; CHCM 32.6; Eosinophils # (A) 0.4 k/uL (0-0.7); Eosinophils % (A) 8 %; HCT 31.6 % (39.0-53.0); HDW 3.26; HGB 10.5 gm/dL (13.0-17.5); Luc # (Auto) 0.12; Luc % (Auto) 3; Lymphocytes # (A) 0.9 k/uL (1.0-4.8); Lymphocytes % (A) 18 %; MCH 31.3 pg (25.0-35.0); MCHC 33.2 g/dL (31.0-37.0); MCV 94.2 fL (80.0-100.0); Mean Platelet Volume 7.3; Monocytes # (A) 0.2 k/uL (0-1.0); Monocytes % (A) 5 %; Neutrophils # (A) 3.1 k/uL (1.3-7.7); Neutrophils % (A) 66 %; RBC 3.35 m/uL (4.30-5.90); RDW 14.9 % (11.5-15.5); WBC 4.7 k/uL (3.8-10.6); WBC (Perox) 4.86
[2017-05-10 08:27] LABS: Anion Gap 7 mmol/L; Blood Urea Nitrogen 13 mg/dL (9-20); Calcium 8.3 mg/dL (8.4-10.2); Carbon Dioxide 24 mmol/L (22-30); Chloride 110 mmol/L (98-107); Glucose 98 mg/dL (74-99); Non-African American GFR(MDRD) >60 (>60 ml/min/1.73 sqM); Potassium 3.8 mmol/L (3.5-5.1); Sodium 141 mmol/L (137-145)
[2017-05-10] MEDS: ASPIRIN 81 MG CHEW PO SCH (09:33)
[2017-05-10] MEDS: HEPARIN SODIUM,PORCINE 5,000 UNIT/ML 1 ML VIAL SQ SCH ×2 (09:33→21:08)
[2017-05-10] MEDS: VANCOMYCIN 1,250 MG in SODIUM CHLORIDE 0.9% 250 ML IVPB SCH ×2 (09:33→21:08)
[2017-05-10] MEDS: HYDROCHLOROTHIAZIDE 25 MG TAB PO SCH (09:33)
[2017-05-10] MEDS: DORZOLAMIDE-TIMOLOL 2-0.5% DROPS 10 ML BTL BOTH EYES SCH ×2 (09:35→21:08)
--- NOTE | 2017-05-10 12:02 | HP ---
DATE OF SERVICE: 05/09/2017 CHIEF COMPLAINTS: Postoperative wound infection. HISTORY OF PRESENT ILLNESS: This 76-year-old gentleman with a past medical history of multiple medical problems, including history of CVA, TIA, DVT, history of DJD, history of peripheral vascular disease, underwent left-sided femoral popliteal bypass surgery last month by Dr. Vences in [facility]. Recently patient noticed some infection in the groin area. Patient was given outpatient clindamycin. Because of lack of improvement, patient came to [facility] Emergency Room and was admitted for further evaluation and treatment. There is no history of any fever, rigor, chills. No history of headache, loss of consciousness, seizures. PAST MEDICAL HISTORY: 1. History of CVA, TIA. 2. History of DVT. 3. History of hypertension. 4. History of DJD. 5. History of cardiac catheterization. 6. History of peripheral vascular disease. MEDICATIONS: 1. Mupirocin 2% ointment t.i.d. 2. Clindamycin 300 mg q.8. 3. Percocet q.4 p.r.n. 4. Aspirin 81 mg. 5. Zocor 20 mg at bedtime. 6. Xalatan 0.005% one drop b.i.d. 7. Hydrochlorothiazide 12.5 mg each morning. 8. Cosopt b.i.d. 9. Plavix 75 mg daily. ALLERGIES: DIPYRIDAMOLE. FAMILY HISTORY: History of diabetes mellitus and arteriosclerosis in the family. SOCIAL HISTORY: Previous history of smoking. No current smoking or alcohol intake. REVIEW OF SYSTEMS: ENT: No diminished hearing. No diminished vision. CARDIOVASCULAR SYSTEM: No angina, palpitations. RESPIRATORY SYSTEM: No cough, hemoptysis. GI: No nausea, vomiting. : No dysuria, retention. NERVOUS SYSTEM: No numbness, weakness. ALLERGY/IMMUNOLOGY: No asthma, hayfever. MUSCULOSKELETAL: As mentioned earlier. HEMATOLOGY/ONCOLOGY: No history of anemia. ENDOCRINE: No history of diabetes or hypothyroidism. CONSTITUTIONAL: As mentioned earlier. DERMATOLOGIC: As mentioned earlier. RHEUMATOLOGIC: Negative. PSYCHIATRY: As mentioned earlier. PHYSICAL EXAMINATION: Patient is alert and oriented x3. Pulse is 61, blood pressure 160/70, respiration 18, temperature 96.9, pulse ox 98% on room air. HEENT: Conjunctivae normal. NECK: No jugular venous congestion. CARDIAC: S1, S2 muffled. RESPIRATORY: Breath sounds diminished at the bases. A few rhonchi. No crackles. ABDOMEN: Soft, non-tender. LEGS: Left leg status post surgery and infected postoperative surgical wound present in the groin and other areas of erythema present. Pulses diminished on palpation. NERVOUS SYSTEM: Higher functions as mentioned earlier. Moves all 4 limbs. No focal motor or sensory deficit. LYMPHATICS: No lymph node palpable in neck, axillae or groin. SKIN: No ulcer, rash or bleeding. LAB INVESTIGATIONS: WBC 4.2, hemoglobin 12.5. ASSESSMENT: 1. Status post recent left leg femoral popliteal surgery as well as postoperative wound infection. 2. Anemia, normocytic. 3. History of cerebrovascular accident, transient ischemic attack. 4. Deep vein thrombosis. 5. Degenerative joint disease. 6. History of depression not otherwise specified. RECOMMENDATIONS AND DISCUSSION: I recommend to continue current medications, continue symptomatic treatment. Otherwise, broad-spectrum IV antibiotics, cultures. Consult Vascular Surgery and Infectious Disease. Guarded prognosis. Further recommendations to follow. Unasyn has been initiated. Discussed with the patient, who understands and agrees. A copy of this dictation is being forwarded to Dr. Mccullough, who is the primary physician. JEAN
[2017-05-10] MEDS: LATANOPROST 0.005% OPHTH DROPS 2.5 ML BTL BOTH EYES SCH (12:52)
[2017-05-10] MEDS ORDERED: VANCOMYCIN TROUGH DUE 1 EACH MISC MISCELLANE ONE (20:00)
[2017-05-10] MEDS: ATORVASTATIN 10 MG TAB PO SCH (21:08)
[2017-05-11] MEDS ORDERED: HYDROmorphone 1 MG/ML 1 ML SYRINGE ONE (00:02)
[2017-05-11] MEDS: AMPICILLIN-SULBACTAM 3 GM in SODIUM CHLORIDE 0.9% 100 ML IVPB SCH ×3 (04:00→19:46)
[2017-05-11 09:17] LABS: Basophils % (A) 1 %; CH 31.4; CHCM 32.8; Eosinophils # (A) 0.4 k/uL (0-0.7); Eosinophils % (A) 9 %; HCT 33.4 % (39.0-53.0); HDW 3.15; HGB 11.1 gm/dL (13.0-17.5); Luc # (Auto) 0.08; Luc % (Auto) 2; Lymphocytes # (A) 0.8 k/uL (1.0-4.8); Lymphocytes % (A) 17 %; MCH 31.9 pg (25.0-35.0); MCHC 33.1 g/dL (31.0-37.0); MCV 96.2 fL (80.0-100.0); Mean Platelet Volume 8.5; Monocytes # (A) 0.2 k/uL (0-1.0); Monocytes % (A) 5 %; Neutrophils # (A) 3.1 k/uL (1.3-7.7); Neutrophils % (A) 67 %; RBC 3.47 m/uL (4.30-5.90); WBC 4.6 k/uL (3.8-10.6)
[2017-05-11] MEDS: HEPARIN SODIUM,PORCINE 5,000 UNIT/ML 1 ML VIAL SQ SCH ×2 (09:24→20:12)
[2017-05-11] MEDS: VANCOMYCIN 1,250 MG in SODIUM CHLORIDE 0.9% 250 ML IVPB SCH (09:24)
[2017-05-11] MEDS: DORZOLAMIDE-TIMOLOL 2-0.5% DROPS 10 ML BTL BOTH EYES SCH ×2 (09:25→20:12)
[2017-05-11] MEDS: HYDROCHLOROTHIAZIDE 25 MG TAB PO SCH (09:25)
[2017-05-11] MEDS: ASPIRIN 81 MG CHEW PO SCH (09:25)
[2017-05-11 09:52] LABS: Anion Gap 8 mmol/L; Blood Urea Nitrogen 12 mg/dL (9-20); Calcium 8.4 mg/dL (8.4-10.2); Carbon Dioxide 24 mmol/L (22-30); Chloride 108 mmol/L (98-107); Glucose 117 mg/dL (74-99); Non-African American GFR(MDRD) >60 (>60 ml/min/1.73 sqM); Sodium 140 mmol/L (137-145)
[2017-05-11] MEDS: HYDROmorphone 1 MG/ML 1 ML SYRINGE IV PRN ×2 (09:55→22:45)
--- NOTE | 2017-05-11 10:05 | P.PN ---
Progress Note - Text Subjective: Patient has no specific complaints. Objective: There is 1-2+ swelling in the left lower leg. The left groin is cleaning up nicely. There is no obvious purulence. Assessment: Good progress of the left groin wound dehiscence. Plan: We will switch his wound therapy to Santyl. We will continue to follow him in the wound center on discharge. We will arrange for visiting nurses for outpatient therapy. He can be discharged on oral antibiotics at the discretion of medicine.
[2017-05-11] MEDS: COLLAGENASE 250 UNIT/GM OINTMENT 30 GM TUBE TOPICAL SCH (11:34)
--- NOTE | 2017-05-11 12:11 | PN ---
DATE OF SERVICE: 05/09/17 This 76 year old gentleman who was admitted after postoperative wound infection involving the left femoral popliteal in situ bypass, had some drainage. The patient was on outpatient antibiotics. Currently the patient is admitted and on intravenous antibiotics also. The wound culture showed gram negative bacilli. Past medical history reviewed. REVIEW OF SYSTEMS: CARDIOVASCULAR: No angina or palpitations. RESPIRATORY: As mentioned earlier. GI: As mentioned. : No dysuria. NERVOUS SYSTEM: No numbness, weakness. Medications reviewed and include: 1. Tylenol. 2. Unasyn. 3. Lipitor. 4. Hydrodiuril. 5. Dilaudid. 6. Narcan. 7. Zofran. 8. Percocet. 9. Vancomycin. PHYSICAL EXAMINATION: The patient is alert and oriented times three. Pulse is 75. Blood pressure is 109/52. Respiratory rate 18. Temperature 97.4. Pulse ox 98% on room air. HEENT: Conjunctivae normal. NECK: No JVD. CARDIOVASCULAR: S1, S2 muffled. RESPIRATORY: Breath sounds diminished at the bases. A few scattered rhonchi and no crackles. ABDOMEN: Soft, nontender. LEGS: No edema. No swelling. NERVOUS SYSTEM: No focal deficits. LABS: WBC 4.7, hemoglobin 11.2. ASSESSMENT: 1. Recent left femoral popliteal bypass surgery and postoperative wound infection with cellulitis. 2. Anemia. 3. Peripheral vascular disease. 4. History of cerebrovascular disease, transient ischemic accident. 5. History of deep vein thrombosis. 6. History of degenerative joint disease. RECOMMENDATIONS AND DISCUSSION: In this 76-year old gentleman who presented with multiple complex medical issues, we will monitor the patient closely, continue the current medications, continue symptomatic treatment. Recommend DVT prophylaxis and broad spectrum IV antibiotics. Vancomycin and Unasyn. Infectious disease evaluation. Further recommendations to follow. MTDD
[2017-05-11] MEDS: LATANOPROST 0.005% OPHTH DROPS 2.5 ML BTL BOTH EYES SCH (14:28)
[2017-05-11] MEDS: ATORVASTATIN 10 MG TAB PO SCH (20:11)
[2017-05-11] MEDS ORDERED: VANCOMYCIN 1,000 MG in SODIUM CHLORIDE 0.9% 250 ML IVPB SCH (21:00)
--- NOTE | 2017-05-11 23:31 | PN ---
DATE OF SERVICE: 05/10/2017 This 76-year-old gentleman who was admitted with a postoperative wound infection is improving significantly. The cultures are showing Gram-negative bacilli. No fever. No cough. On exam, alert and oriented x3. Pulse 63, blood pressure 121/48, respiration 18 , temperature 97.3. HEENT: Conjunctivae normal. NECK: No jugular venous distention. CARDIOVASCULAR: S1, S2 muffled. RESPIRATORY: Breath sounds diminished at the bases. No rhonchi. No crackles. ABDOMEN: Soft, non-tender. LEGS: Left leg infected postoperative wound present. LABS: WBC 4.6, hemoglobin 10.5. ASSESSMENT: 1. Status post recent left leg femoropopliteal bypass surgery as well as postoperative wound infection. 2. Anemia, normocytic. 3. History of cerebrovascular accident, transient ischemic attack. 4. History of deep vein thrombosis. 5. History of degenerative joint disease. 6. History of depression not otherwise specified. RECOMMENDATIONS AND DISCUSSION: I recommend to continue current medications, continue with the monitoring, symptomatic treatment. Otherwise, at this time I would recommend continuing with antibiotics. Final cultures. Guarded prognosis because of multiple complex medical issues. Further recommendations to follow. MTDD
[2017-05-12] MEDS: AMPICILLIN-SULBACTAM 3 GM in SODIUM CHLORIDE 0.9% 100 ML IVPB SCH ×2 (03:35→12:13)
[2017-05-12] MEDS: HYDROCHLOROTHIAZIDE 25 MG TAB PO SCH (08:23)
[2017-05-12] MEDS: HEPARIN SODIUM,PORCINE 5,000 UNIT/ML 1 ML VIAL SQ SCH ×2 (08:23→20:59)
[2017-05-12] MEDS: DORZOLAMIDE-TIMOLOL 2-0.5% DROPS 10 ML BTL BOTH EYES SCH ×2 (08:23→20:57)
[2017-05-12] MEDS: ASPIRIN 81 MG CHEW PO SCH (08:24)
[2017-05-12] MEDS: COLLAGENASE 250 UNIT/GM OINTMENT 30 GM TUBE TOPICAL SCH (08:26)
[2017-05-12 08:33] LABS: Basophils % (A) 1 %; CH 31.2; CHCM 33.2; Eosinophils # (A) 0.3 k/uL (0-0.7); Eosinophils % (A) 8 %; HCT 31.6 % (39.0-53.0); HDW 3.18; HGB 10.6 gm/dL (13.0-17.5); Luc # (Auto) 0.07; Luc % (Auto) 2; Lymphocytes # (A) 0.8 k/uL (1.0-4.8); Lymphocytes % (A) 18 %; MCH 31.6 pg (25.0-35.0); MCHC 33.5 g/dL (31.0-37.0); MCV 94.3 fL (80.0-100.0); Mean Platelet Volume 7.9; Monocytes # (A) 0.2 k/uL (0-1.0); Monocytes % (A) 5 %; Neutrophils # (A) 2.9 k/uL (1.3-7.7); Neutrophils % (A) 68 %; RBC 3.35 m/uL (4.30-5.90); WBC 4.2 k/uL (3.8-10.6); WBC (Perox) 4.33
[2017-05-12 09:17] LABS: Anion Gap 7 mmol/L; Blood Urea Nitrogen 9 mg/dL (9-20); Calcium 8.3 mg/dL (8.4-10.2); Carbon Dioxide 25 mmol/L (22-30); Chloride 108 mmol/L (98-107); Glucose 125 mg/dL (74-99); Non-African American GFR(MDRD) >60 (>60 ml/min/1.73 sqM); Potassium 3.7 mmol/L (3.5-5.1); Sodium 140 mmol/L (137-145)
--- NOTE | 2017-05-12 11:28 | PN ---
DATE OF SERVICE: 05/11/2017 This is a 76-year-old gentleman who was admitted after a left leg femoropopliteal surgery, also had infection. The cultures are showing Stenotrophomonas. No fever, no cough. On exam, alert and oriented x3. Pulse 62, blood pressure 108/46, respirations 20, temperature is 97.1,, pulse ox 98% on room air. HEENT: Normal. NECK: No jugular venous distension. CARDIOVASCULAR SYSTEM: S1, S2, muffled. RESPIRATORY: Breath sounds diminished at the bases, no rhonchi, no crackles. ABDOMEN: Soft. LEGS: No edema, no swelling. NERVOUS SYSTEM: No focal deficits. LABS: WBC is 4.6, hemoglobin is 11.1. ASSESSMENT: 1. Status post congestive heart failure and left left femoropopliteal surgery as well as positive wound infection with Stenotrophomonas. 2. Anemia, normocytic. 3. History of cerebrovascular accident, transient ischemic accident. 4. History of deep venous thrombosis. 5. History of degenerative joint disease. 6. History of depression, not otherwise specified. RECOMMENDATION AND DISCUSSION: Recommend to continue with the current medication. Continue with the symptomatic treatment. Otherwise, antibiotics to be addressed by Infectious Disease. Monitor closely. Further recommendations to follow. Resume the rest of the medications. CLIFTOND
[2017-05-12] MEDS: LATANOPROST 0.005% OPHTH DROPS 2.5 ML BTL BOTH EYES SCH (15:03)
[2017-05-12] MEDS: ACETAMINOPHEN TAB 325 MG TAB PO PRN (15:32)
[2017-05-12] MEDS: ATORVASTATIN 10 MG TAB PO SCH (20:59)
[2017-05-12] MEDS: SULFAMETHOX-TMP 800-160MG 1 EACH TAB PO SCH (20:59)
[2017-05-12] MEDS: HYDROmorphone 1 MG/ML 1 ML SYRINGE IV PRN (23:24)
[2017-05-13 07:27] VITALS: BP 123/58; RESP 16; TEMP 96.6
[2017-05-13] MEDS: ACETAMINOPHEN TAB 325 MG TAB PO PRN (07:51)
[2017-05-13] MEDS: HYDROCHLOROTHIAZIDE 25 MG TAB PO SCH (07:52)
[2017-05-13] MEDS: ASPIRIN 81 MG CHEW PO SCH (07:52)
[2017-05-13] MEDS: SULFAMETHOX-TMP 800-160MG 1 EACH TAB PO SCH (07:52)
[2017-05-13] MEDS: HEPARIN SODIUM,PORCINE 5,000 UNIT/ML 1 ML VIAL SQ SCH (07:52)
[2017-05-13] MEDS: DORZOLAMIDE-TIMOLOL 2-0.5% DROPS 10 ML BTL BOTH EYES SCH (07:52)
[2017-05-13 08:12] VITALS: PULSE 62
[2017-05-13 08:43] LABS: Basophils % (A) 0 %; CH 30.8; CHCM 33.4; Eosinophils # (A) 0.4 k/uL (0-0.7); Eosinophils % (A) 7 %; HCT 34.6 % (39.0-53.0); HDW 3.19; HGB 11.6 gm/dL (13.0-17.5); Luc # (Auto) 0.06; Luc % (Auto) 1; Lymphocytes # (A) 0.9 k/uL (1.0-4.8); Lymphocytes % (A) 17 %; MCH 31.2 pg (25.0-35.0); MCHC 33.6 g/dL (31.0-37.0); MCV 92.8 fL (80.0-100.0); Mean Platelet Volume 8.2; Monocytes # (A) 0.3 k/uL (0-1.0); Monocytes % (A) 5 %; Neutrophils # (A) 3.8 k/uL (1.3-7.7); Neutrophils % (A) 70 %; RBC 3.73 m/uL (4.30-5.90); RDW 14.8 % (11.5-15.5); WBC 5.4 k/uL (3.8-10.6); WBC (Perox) 5.55
[2017-05-13] MEDS: COLLAGENASE 250 UNIT/GM OINTMENT 30 GM TUBE TOPICAL SCH (09:06)
[2017-05-13 09:12] LABS: Anion Gap 9 mmol/L; Blood Urea Nitrogen 11 mg/dL (9-20); Calcium 8.8 mg/dL (8.4-10.2); Carbon Dioxide 25 mmol/L (22-30); Chloride 106 mmol/L (98-107); Glucose 108 mg/dL (74-99); Non-African American GFR(MDRD) >60 (>60 ml/min/1.73 sqM); Potassium 3.8 mmol/L (3.5-5.1); Sodium 140 mmol/L (137-145)
--- NOTE | 2017-05-13 10:09 | PN ---
DATE OF SERVICE: 05/12/2017 This 76-year-old gentleman admitted with significant cellulitis after surgery, is being closely monitored. The cultures show Stenotrophomonas maltophilia. No fever, no rigors, chills. On exam, alert and oriented x3. Pulse 70, blood pressure 127/51, respirations 18, temperature is 97 degrees, pulse ox 97% on room air. HEENT: Conjunctivae normal. NECK: No jugular venous distension. CARDIOVASCULAR: S1, S2, muffled. RESPIRATORY: Breath sounds diminished at the bases, no rhonchi, no crackles. ABDOMEN: Soft, nontender. Left leg cellulitis present. NERVOUS SYSTEM: No focal deficits. LABS: WBC is 4.2, hemoglobin is 10.6. ASSESSMENT: 1. Status post recent left leg femoropopliteal bypass surgery as well as postoperative wound infection. 2. Anemia, normocytic. 3. History of cerebrovascular accident, transient ischemic attack. 4. History of deep venous thrombosis. 5. History of degenerative joint disease. 6. History of depression, not otherwise specified. RECOMMENDATION: Recommend to continue with the current medication. Continue with the monitoring and symptomatic treatment. Otherwise, at this time I would recommend continue with IV antibiotics, Infectious Disease evaluation. Guarded prognosis because of multiple complex medical issues and further recommendations to follow. MTDD
--- NOTE | 2017-05-13 10:22 | P.PN ---
Subjective Principal diagnosis: Status post left fem-pop in situ bypass. Postoperative infection left groin. Patient currently laying in bed with lower extremities elevated. Denies pain. No acute distress. Objective - Vital Signs Vital signs: Vital Signs Temp 96.6 F L 05/13/17 07:25 Pulse 62 05/13/17 08:05 Resp 16 05/13/17 07:25 BP 123/58 05/13/17 07:25 Pulse Ox 98 05/13/17 07:25 Intake & Output 05/12/17 05/13/17 05/13/17 18:59 06:59 18:59 Intake Total 720 300 Balance 720 300 Intake: Intake, IV Titration 200 Amount Ampicillin-Sulbactam 3 gm 100 In Sodium Chloride 0.9% 100 ml @ 100 mls/hr IVPB Q8H [facility] Rx#:[id number] cefTAZidime 2 gm In 100 Sodium Chloride 0.9% 100 ml @ 100 mls/hr IVPB Q8HR [facility] Rx#:[id number] Oral 720 100 Other: Voiding Method Toilet Toilet Toilet Urinal Urinal Urinal # Voids 2 2 - Constitutional General appearance: Present: cooperative, no acute distress - Respiratory Details: Lungs sounds was bilaterally. Respirations even, nonlabored. Currently on room air with oxygen saturation 98%. - Cardiovascular Details: S1, S2 present. Regular rate and rhythm. - Gastrointestinal Gastrointestinal Comment(s): Abdomen soft, nontender, nondistended. Active bowel sounds 4 quadrants. Tolerating diet. - Genitourinary Genitourinary Comment(s): Voiding clear, yellow urine. - Integumentary Integumentary Comment(s): Left groin site dressing removed. Wound examined and cleaned. Wound looks dry and appears to be healing well. Santyl applied, dressing applied. - Musculoskeletal Musculoskeletal: Present: strength equal bilaterally - Psychiatric Psychiatric: Present: A&O x's 3, appropriate affect, intact judgment & insight - Allied health notes Allied health notes reviewed: nursing - Labs CBC & Chem 7: 05/13/17 08:02 05/13/17 08:02 Labs: Abnormal Lab Results - Last 24 Hours (Table) 05/13/17 05/13/17 Range/Units 08:02 08:02 RBC 3.73 L (4.30-5.90) m/uL Hgb 11.6 L (13.0-17.5) gm/dL Hct 34.6 L (39.0-53.0) % Lymphocytes # 0.9 L (1.0-4.8) k/uL Glucose 108 H (74-99) mg/dL Microbiology - Last 24 Hours (Table) 05/08/17 12:00 Blood Culture - Preliminary Blood No Growth after 96 hours 05/08/17 12:00 Gram Stain - Final Groin Wound Culture - Final Stenotrophomonas maltophilia Assessment and Plan (1) Infection with Stenotrophomonas maltophilia resistant to multiple drugs Status: Acute (2) Postoperative wound infection Status: Acute Plan: 1. Continue current antibiotic management per Dr. Hedrick recommendations. 2. Continue Santyl dressing changes daily. 3. Encourage patient to keep his leg elevated above the level was heart at all times except when sitting up eating her walking to the bathroom. 4. One patient discharge please have him follow up in the wound care center with Dr. Medina every week. Time with Patient: Less than 30
--- NOTE | 2017-05-13 11:06 | P.CONS ---
History of Present Illness - Reason for Consult Consult date: 05/12/17 Left groin surgical site infection Requesting physician: Sita Engel - Chief Complaint Left groin wound and pain - History of Present Illness Patient is 76 year old male who is status post left fem-pop in situ bypass by About 2 weeks ago, a week postop surgery the patient started having swelling redness and pain in his left groin area for which the patient went to see his family physician patient was diagnosed with cellulitis and has been treated with oral clindamycin the patient did have a follow-up visit his primary care physician on 05/08/2017 with the patient was noticed to have worsening of his groin area hence the patient has been sent to the ER for further evaluation. Patient noticed to have dehiscence of his wound evaluated by Dr. Richardson initial local treatment was half strength peroxide with wound packing followed by Ctr. patient has been treated with the Unasyn and vancomycin wound culture culture were obtained which is now showing Stenotrophomonas maltophilia , ID was consulted for further recommendation regarding antibiotic therapy. Patient denies having any fever and chills denies significant chest pain or shortness of cough and pain in the left groin area is dull aching about 2-3 out of 10 and no radiation overall drainage from the area has decreased surrounding swelling redness is improved for the nurse taking care of the patient Review of Systems Review of system Constitutional: The patient denies any fever or rigors or chills, the patient does complain of weakness. Eyes: No complaint ENT: No complaint Respiratory: No complaint Cardiovascular: No complaint Gastrointestinal: No complaint Genitourinary: No complaint Musculoskeletal: No complaint Integumentary: As per history of present illness Endocrine : No complaint Psycologial : No complaint Neurological: No complaint. Past Medical History Past Medical History: CVA/TIA, Deep Vein Thrombosis (DVT), Eye Disorder, Hypertension, Osteoarthritis (OA), Vascular Disorder Additional Past Medical History / Comment(s): TIA long time ago, PVD, swelling of left foot, uses walker or scooter for longer distances, GLAUCOMA History of Any Multi-Drug Resistant Organisms: None Reported Past Surgical History: Heart Catheterization Additional Past Surgical History / Comment(s): 3 stents in left leg, angioplasty nicole legs, aortogram, nicole cataracts, AORTPGRAM,FEMPOP BYPASS LT LEG, STRESS TEST Past Anesthesia/Blood Transfusion Reactions: No Reported Reaction Smoking Status: Former smoker - Past Family History Mother Family Medical History: Diabetes Mellitus Father Family Medical History: Coronary Artery Disease (CAD), Rheumatoid Arthritis (RA) Additional Family Medical History / Comment(s): ARTERIAL SCLEROSIS Medications and Allergies Home Medications Medication Instructions Recorded Confirmed Type Aspirin [Adult Low Dose Aspirin EC] 81 mg PO DAILY 03/18/17 05/08/17 History Clopidogrel Bisulfate [Plavix] 75 mg PO DAILY 03/18/17 05/08/17 History Dorzolamide/Timolol/Pf [Cosopt Pf 1 applicator BOTH EYES BID 03/18/17 05/08/17 History 2%/5% Ophth Droperette] Hydrochlorothiazide 12.5 mg PO QAM 03/18/17 05/08/17 History Latanoprost [Xalatan 0.005%] 1 drop BOTH EYES DAILY@1400 03/18/17 05/08/17 History Simvastatin [Zocor] 20 mg PO HS 03/18/17 05/08/17 History Mupirocin 2% Oint [Bactroban 2% 1 applic TOPICAL BID 05/08/17 05/08/17 History Oint] oxyCODONE-APAP 5-325MG [Percocet 1 tab PO Q4H PRN 05/08/17 05/08/17 History 5-325 mg] Allergies Allergy/AdvReac Type Severity Reaction Status Date / Time dipyridamole Allergy JOINT AND Verified 05/08/17 10:51 MUSCLE PAIN Physical Exam Vitals: Vital Signs Temp Pulse Resp BP Pulse Ox 05/12/17 07:00 97.0 F L 66 18 131/54 97 05/11/17 23:00 97.1 F L 70 20 147/63 98 05/11/17 14:56 97.1 F L 62 20 108/46 98 Intake and Output 05/11/17 05/12/17 05/12/17 22:59 06:59 14:59 Intake Total 540 300 240 Output Total 200 400 Balance 340 -100 240 Intake: Intake, IV Titration 200 Amount Ampicillin-Sulbactam 3 gm 200 In Sodium Chloride 0.9% 100 ml @ 100 mls/hr IVPB Q8H [facility] Rx#:[id number] Oral 540 100 240 Output: Urine 200 400 Other: Voiding Method Toilet Toilet Toilet Urinal Urinal Urinal # Voids 1 1 # Bowel Movements 1 General: The patient is awake and alert, in no distress. Skin: no rashes or lesions are noted no masses palpable. Left groin wound with slough tissue at the base some surrounding erythema no foul-smelling drainage Eye: Pupils are equal, round and reactive to light, there is normal conjunctiva bilaterally. Ears, nose, mouth and throat: There are moist mucous membranes and no oral lesions. Neck: The neck is supple, there is no thyromegaly. Cardiovascular: S1-S2 regular rate and rhythm. No murmur. Respiratory: Unlabored breathing clear to auscultation bilaterally Gastrointestinal: Soft, non-distended, non-tender abdomen without masses or organomegaly noted. There is no rebound or guarding present. Bowel sounds are unremarkable. Psychiatric: Patient is awake and alert and oriented 3, appropriate mood & affect, normal judgment. Results CBC & Chem 7: 05/13/17 08:02 05/13/17 08:02 Labs: Abnormal Lab Results - Last 24 Hours (Table) 05/12/17 05/12/17 Range/Units 08:06 08:06 RBC 3.35 L (4.30-5.90) m/uL Hgb 10.6 L (13.0-17.5) gm/dL Hct 31.6 L (39.0-53.0) % Lymphocytes # 0.8 L (1.0-4.8) k/uL Chloride 108 H (98-107) mmol/L Glucose 125 H (74-99) mg/dL Calcium 8.3 L (8.4-10.2) mg/dL Microbiology - Last 24 Hours (Table) 05/08/17 12:00 Blood Culture - Preliminary Blood No Growth after 72 hours 05/08/17 12:00 Gram Stain - Preliminary Groin Wound Culture - Preliminary Stenotrophomonas maltophilia Assessment and Plan (1) Infection with Stenotrophomonas maltophilia resistant to multiple drugs Status: Acute (2) Postoperative wound infection Status: Acute Plan: 1-patient with left groin wound infection in a patient who is status post left fem-pop in situ bypass graft about 2 weeks ago, wound culture is growing stenotrophomonas that is sensitive to Bactrim DS 2-antibiotics could be adjusted to Fortaz 2 g every 8 hour along with the Bactrim DS one twice a day 3-it the patient continued to improve plan to finish therapy with oral Bactrim DS one twice a day for 2 weeks local wound care will continue with the Santyl followed by moist dressing Thank you for this consultation will follow this patient along with you Time with Patient: Greater than 30
--- NOTE | 2017-05-13 18:16 | P.DS ---
Providers Date of admission: 05/08/17 15:02 Expected date of discharge: 05/13/17 Attending physician: Sita Merino Consults: 05/08/17 15:02 Consult Physician Stat Consulting Provider: Chema Medina Consult Reason/Comments: Post op wound infection Do you want consulting provider notified?: Yes 05/11/17 13:50 Consult Physician Stat Consulting Provider: Tyree Lux Consult Reason/Comments: left groin wound Do you want consulting provider notified?: Yes Primary care physician: Sadia Watts Hospital Course: Final Diagnoses: (1) status post recent left leg femoral-popliteal bypass, postoperative wound Infection with Stenotrophomonas maltophilia resistant to multiple drugs Status: Acute (2) anemia, normocytic Hospital course: This is a 76-year-old gentleman status post recent left fem- pop bypass with left groin wound infection. Evaluated by both Dr. Medina, vascular surgery and Dr. Lux infectious disease. Wound culture growing stenotrophomonas. Received daily wound care and IV antibiotics with significant clinical improvement. Patient has been cleared by all consults for discharge. Patient is being discharged home with home care in a stable condition with guarded prognosis. The impression and plan of care has been dictated as directed as a scribe. : I performed a H&P examination of this patient and discussed the same with the dictator. I agree with the dictator's note. Any additional findings/opinions/ etc. will be noted. Patient Condition at Discharge: Stable Plan - Discharge Summary New Discharge Prescriptions: New Sulfamethox-Tmp 800-160Mg [Bactrim DS 800-160 mg] 1 tab PO Q12HR #28 tab Collagenase [Santyl] 1 applic TOPICAL DAILY dose Continue Latanoprost [Xalatan 0.005%] 1 drop BOTH EYES DAILY@1400 Dorzolamide/Timolol/Pf [Cosopt Pf 2%/5% Ophth Droperette] 1 applicator BOTH EYES BID Hydrochlorothiazide 12.5 mg PO QAM Aspirin [Adult Low Dose Aspirin EC] 81 mg PO DAILY Simvastatin [Zocor] 20 mg PO HS Clopidogrel Bisulfate [Plavix] 75 mg PO DAILY Mupirocin 2% Oint [Bactroban 2% Oint] 1 applic TOPICAL BID oxyCODONE-APAP 5-325MG [Percocet 5-325 mg] 1 tab PO Q4H PRN PRN Reason: Pain Discontinued Clindamycin HCl 300 mg PO Q8H Discharge Medication List Aspirin [Adult Low Dose Aspirin EC] 81 mg PO DAILY 03/18/17 [History] Clopidogrel Bisulfate [Plavix] 75 mg PO DAILY 03/18/17 [History] Dorzolamide/Timolol/Pf [Cosopt Pf 2%/5% Ophth Droperette] 1 applicator BOTH EYES BID 03/18/17 [History] Hydrochlorothiazide 12.5 mg PO QAM 03/18/17 [History] Latanoprost [Xalatan 0.005%] 1 drop BOTH EYES DAILY@1400 03/18/17 [History] Simvastatin [Zocor] 20 mg PO HS 03/18/17 [History] Mupirocin 2% Oint [Bactroban 2% Oint] 1 applic TOPICAL BID 05/08/17 [History] oxyCODONE-APAP 5-325MG [Percocet 5-325 mg] 1 tab PO Q4H PRN 05/08/17 [History] Collagenase [Santyl] 1 applic TOPICAL DAILY dose 05/13/17 [Rx] Sulfamethox-Tmp 800-160Mg [Bactrim DS 800-160 mg] 1 tab PO Q12HR #28 tab [Rx] Follow up Appointment(s)/Referral(s): Stefanie Mccullough MD [Primary Care Provider] - 05/16/17 10:15 am [facility] [NON-STAFF] - 05/20/17 8:00 am (Please see Dr. Medina in wound care center weekly) Tyree Lux MD [STAFF PHYSICIAN] - 05/21/17 10:45 am [facility], [NON-STAFF] - Ambulatory/Diagnostic Orders: Complete Blood Count w/diff [LAB.AMB] Time Frame: 3 Days, Location: Determined By Patient Activity/Diet/Wound Care/Special Instructions: Daily dressing changes of saline moistened gauze over wound with Sanytl ointment applied. Cover with ABD pad and tape. Do not submerge in water. WEEKLY MEETINGS WITH DR. Rascon IN WOUND CARE CENTER Discharge Disposition: HOME WITH HOME HEALTH SERVICES
== END 2017-05-13 13:05 | disposition home health service (06) | DRG 863 ==
LOC: EC 10:43 → 4MS4W 15:02
PROVIDERS: ADMIT Hospitalist; ATTEND Hospitalist
DX: T81.4XXA Infection following a procedure, initial encounter (principal); L03.116 Cellulitis of left lower limb; T81.30XA Disruption of wound, unspecified, initial encounter; I11.0 Hypertensive heart disease with heart failure; I50.9 Heart failure, unspecified; M19.90 Unspecified osteoarthritis, unspecified site; I73.9 Peripheral vascular disease, unspecified; D64.9 Anemia, unspecified; H40.9 Unspecified glaucoma; F32.9 Major depressive disorder, single episode, unspecified; B96.89 Other specified bacterial agents as the cause of diseases classified elsewhere; Z16.30 Resistance to unspecified antimicrobial drugs; Z79.82 Long term (current) use of aspirin; Z79.899 Other long term (current) drug therapy; Z79.02 Long term (current) use of antithrombotics/antiplatelets; Z88.8 Allergy status to other drugs, medicaments and biological substances; Z87.891 Personal history of nicotine dependence; Z82.49 Family history of ischemic heart disease and other diseases of the circulatory system
CPT/HCPCS: 36415; 80048; 80053; 80202; 85025; 87040; 87070; 87077; 87186; 87205; 96361; 96365; 96366; 96367; 99285

== ENCOUNTER → 2017-07-07 | Outpatient (CLI) | payer MEDICARE, OTHER ==
[2017-07-07 15:03] LABS: CH 29.9; CHCM 32.6; HCT 38.3 % (39.0-53.0); HDW 3.17; HGB 13.2 gm/dL (13.0-17.5); MCH 31.7 pg (25.0-35.0); MCHC 34.4 g/dL (31.0-37.0); MCV 92.2 fL (80.0-100.0); Mean Platelet Volume 7.7; RBC 4.15 m/uL (4.30-5.90); RDW 14.7 % (11.5-15.5); WBC 4.8 k/uL (3.8-10.6)
[2017-07-07 15:10] LABS: Anion Gap 10 mmol/L; Blood Urea Nitrogen 25 mg/dL (9-20); Carbon Dioxide 30 mmol/L (22-30); Chloride 102 mmol/L (98-107); Non-African American GFR(MDRD) >60 (>60 ml/min/1.73 sqM); Potassium 5.2 mmol/L (3.5-5.1); Sodium 142 mmol/L (137-145)
== END | disposition home or self-care (01) ==
LOC: LABPAT 14:17
PROVIDERS: ATTEND Internal Medicine Interventional Cardiology
DX: Z01.812 Encounter for preprocedural laboratory examination (principal); I25.10 Atherosclerotic heart disease of native coronary artery without angina pectoris
CPT/HCPCS: 80051; 82565; 84520; 85027

== ENCOUNTER → 2017-08-03 | Outpatient (CLI) | payer MEDICARE, OTHER ==
[2017-08-03 14:51] LABS: Anion Gap 10 mmol/L; Blood Urea Nitrogen 25 mg/dL (9-20); Carbon Dioxide 29 mmol/L (22-30); Chloride 103 mmol/L (98-107); Non-African American GFR(MDRD) >60 (>60 ml/min/1.73 sqM); Potassium 4.5 mmol/L (3.5-5.1); Sodium 142 mmol/L (137-145)
== END | disposition home or self-care (01) ==
LOC: LABWHC1 12:04
PROVIDERS: ATTEND Internal Medicine Interventional Cardiology
DX: E87.5 Hyperkalemia (principal)
CPT/HCPCS: 36415; 80051; 82565; 84520

== ENCOUNTER 2017-09-18 13:24 | Emergency (ER) | payer MEDICARE, OTHER ==
[2017-09-18 13:38] VITALS: RESP 18
--- NOTE | 2017-09-18 14:17 | ED ---
General Adult HPI - General Chief complaint: Recheck/Abnormal Lab/Rx Stated complaint: low hemoglobin-sent by Time Seen by Provider: 09/18/17 13:30 Source: patient, family, RN notes reviewed, old records reviewed Mode of arrival: wheelchair Limitations: no limitations - History of Present Illness Initial comments: 77-year-old male presents for evaluation. [facility]. Patient recently had peripheral vascular procedure for his left lower leg. He was started on Cymbalta. Patient has been taking Plavix for 20 years. Patient denies any hematuria. Denies rectal bleeding. Denies melena. Denies abdominal pain or distention. Denies pain in his recently stented left leg. - Related Data Home Medications Medication Instructions Recorded Confirmed Aspirin [Adult Low Dose Aspirin EC] 81 mg PO DAILY 03/18/17 09/18/17 Clopidogrel Bisulfate [Plavix] 75 mg PO DAILY 03/18/17 09/18/17 Dorzolamide/Timolol/Pf [Cosopt Pf 1 drop BOTH EYES BID 03/18/17 09/18/17 2%/5% Ophth Droperette] Latanoprost [Xalatan 0.005%] 1 drop BOTH EYES DAILY@1400 03/18/17 09/18/17 Simvastatin [Zocor] 20 mg PO HS 03/18/17 09/18/17 Hydrocodone/Acetaminophen [[place] 1 tab PO Q4HR PRN 09/18/17 09/18/17 5-325] Rivaroxaban [Xarelto] 15 mg PO BID 09/18/17 09/18/17 Allergies Allergy/AdvReac Type Severity Reaction Status Date / Time dipyridamole AdvReac JOINT AND Verified 09/18/17 14:18 MUSCLE PAIN Review of Systems ROS Statement: Those systems with pertinent positive or pertinent negative responses have been documented in the HPI. ROS Other: All systems not noted in ROS Statement are negative. Past Medical History Past Medical History: CVA/TIA, Deep Vein Thrombosis (DVT), Eye Disorder, Hypertension, Osteoarthritis (OA), Vascular Disorder Additional Past Medical History / Comment(s): TIA long time ago, PVD, swelling of left foot & pain, GLAUCOMA, current cold sx. History of Any Multi-Drug Resistant Organisms: None Reported Past Surgical History: Heart Catheterization, Heart Catheterization With Stent Additional Past Surgical History / Comment(s): 3 stents in left leg, angioplasty nicole legs, aortogram, nicole cataracts, FEMPOP BYPASS LT LEG Past Anesthesia/Blood Transfusion Reactions: No Reported Reaction Date of Last Stent Placement:: 2016 Past Psychological History: Depression Smoking Status: Former smoker Past Alcohol Use History: Occasional Past Drug Use History: None Reported - Past Family History Mother Family Medical History: Diabetes Mellitus Father Family Medical History: Coronary Artery Disease (CAD), Rheumatoid Arthritis (RA) Additional Family Medical History / Comment(s): ARTERIAL SCLEROSIS General Exam Limitations: no limitations General appearance: alert, in no apparent distress Head exam: Present: atraumatic, normocephalic Eye exam: Present: normal appearance, PERRL ENT exam: Present: normal exam Neck exam: Present: normal inspection. Absent: tenderness, meningismus Respiratory exam: Present: normal lung sounds bilaterally. Absent: respiratory distress Cardiovascular Exam: Present: regular rate, normal rhythm GI/Abdominal exam: Present: soft. Absent: distended, tenderness Rectal exam: Present: normal inspection, normal rectal tone, bloody stool. Absent: hemorrhoids Extremities exam: Present: normal inspection, pedal edema (Left lower extremity) . Absent: tenderness, normal capillary refill Neurological exam: Present: alert, oriented X3, CN II-XII intact. Absent: motor sensory deficit Psychiatric exam: Present: normal affect, normal mood Skin exam: Present: warm, dry, intact. Absent: cyanosis, diaphoretic Course Vital Signs 09/18/17 09/18/17 09/18/17 13:30 15:07 16:30 Temperature 97.5 F L 97.2 F L Pulse Rate 80 75 81 Respiratory 18 18 18 Rate Blood Pressure 184/79 130/60 163/69 O2 Sat by Pulse 100 99 100 Oximetry Medical Decision Making - Medical Decision Making 77-year-old male presenting with low hemoglobin from outpatient lab. Hemoglobin today is 8.1. Recent hemoglobin on our system was 13. One week ago patient had peripheral vascular stent placed in the left lower extremity. Patient denies melena or rectal bleeding. On examination patient's has significant edema in the left lower leg, he states his been present for the past week. Extremity is warm. Hemoccult is positive. No hematochezia, no melena. Patient is currently taking both Plavix and Xarelto. Patient requests transfer, I agree with this transfer as his vascular surgeon is at [facility]. At this time patient's vitals are stable. He receives Protonix for the possibility of upper GI bleed. He will require GI consult as well as vascular surgery consult. Diagnosis: Peripheral vascular disease with recent stent, GI bleed, acute blood loss anemia. - Lab Data Result diagrams: 09/18/17 13:45 09/18/17 13:45 Lab Results 09/18/17 09/18/17 09/18/17 Range/Units 13:45 13:45 13:45 WBC 5.7 (3.8-10.6) k/uL RBC 2.76 L (4.30-5.90) m/uL Hgb 8.1 L D (13.0-17.5) gm/dL Hct 25.5 L (39.0-53.0) % MCV 92.5 (80.0-100.0) fL MCH 29.3 (25.0-35.0) pg MCHC 31.7 (31.0-37.0) g/dL RDW 14.9 (11.5-15.5) % Plt Count 334 (150-450) k/uL Neutrophils % 73 % Lymphocytes % 14 % Monocytes % 6 % Eosinophils % 5 % Basophils % 1 % Neutrophils # 4.2 (1.3-7.7) k/uL Lymphocytes # 0.8 L (1.0-4.8) k/uL Monocytes # 0.4 (0-1.0) k/uL Eosinophils # 0.3 (0-0.7) k/uL Basophils # 0.0 (0-0.2) k/uL Hypochromasia Slight Poikilocytosis Slight PT (9.0-12.0) sec INR (<1.2) APTT (22.0-30.0) sec Sodium 135 L (137-145) mmol/L Potassium 3.8 (3.5-5.1) mmol/L Chloride 97 L (98-107) mmol/L Carbon Dioxide 25 (22-30) mmol/L Anion Gap 13 mmol/L BUN 29 H (9-20) mg/dL Creatinine 1.30 H (0.66-1.25) mg/dL Est GFR (MDRD) Af Amer >60 (>60 ml/min/1.73 sqM) Est GFR (MDRD) Non-Af 53 (>60 ml/min/1.73 sqM) Glucose 139 H (74-99) mg/dL Calcium 9.1 (8.4-10.2) mg/dL Magnesium 2.2 (1.6-2.3) mg/dL Total Bilirubin 0.5 (0.2-1.3) mg/dL AST 35 (17-59) U/L ALT 63 (21-72) U/L Alkaline Phosphatase 173 H (38-126) U/L Total Creatine Kinase 59 (55-170) U/L CK-MB (CK-2) 1.5 (0.0-2.4) ng/mL CK-MB (CK-2) Rel Index 2.5 Troponin I <0.012 (0.000-0.034) ng/mL Total Protein 6.7 (6.3-8.2) g/dL Albumin 4.0 (3.5-5.0) g/dL Stool Occult Blood (Negative) Blood Type Blood Type Recheck Antibody Screen Spec Expiration Date 09/18/17 09/18/17 09/18/17 Range/Units 13:45 13:45 14:30 WBC (3.8-10.6) k/uL RBC (4.30-5.90) m/uL Hgb (13.0-17.5) gm/dL Hct (39.0-53.0) % MCV (80.0-100.0) fL MCH (25.0-35.0) pg MCHC (31.0-37.0) g/dL RDW (11.5-15.5) % Plt Count (150-450) k/uL Neutrophils % % Lymphocytes % % Monocytes % % Eosinophils % % Basophils % % Neutrophils # (1.3-7.7) k/uL Lymphocytes # (1.0-4.8) k/uL Monocytes # (0-1.0) k/uL Eosinophils # (0-0.7) k/uL Basophils # (0-0.2) k/uL Hypochromasia Poikilocytosis PT 18.9 H (9.0-12.0) sec INR 2.0 H (<1.2) APTT 35.2 H (22.0-30.0) sec Sodium (137-145) mmol/L Potassium (3.5-5.1) mmol/L Chloride (98-107) mmol/L Carbon Dioxide (22-30) mmol/L Anion Gap mmol/L BUN (9-20) mg/dL Creatinine (0.66-1.25) mg/dL Est GFR (MDRD) Af Amer (>60 ml/min/1.73 sqM) Est GFR (MDRD) Non-Af (>60 ml/min/1.73 sqM) Glucose (74-99) mg/dL Calcium (8.4-10.2) mg/dL Magnesium (1.6-2.3) mg/dL Total Bilirubin (0.2-1.3) mg/dL AST (17-59) U/L ALT (21-72) U/L Alkaline Phosphatase (38-126) U/L Total Creatine Kinase (55-170) U/L CK-MB (CK-2) (0.0-2.4) ng/mL CK-MB (CK-2) Rel Index Troponin I (0.000-0.034) ng/mL Total Protein (6.3-8.2) g/dL Albumin (3.5-5.0) g/dL Stool Occult Blood Positive (Negative) Blood Type O Positive Blood Type Recheck No Antibody Screen NEGATIVE Spec Expiration Date 09/21/2017 - 2345 Disposition Clinical Impression: PAD (peripheral artery disease), GI bleed Disposition: OTHER INSTITUTION NOT DEFINED Condition: Stable Referrals: Stefanie Mccullough MD [Primary Care Provider] - 1-2 days Time of Disposition: 16:20 - Out of Hospital Transfer - Req. Specs Out of Hospital Transfer - Requested Specifics: Other Non-Acute (Transferred to [facility] accepting doctor Dr. Kolb)
[2017-09-18 14:29] LABS: Basophils % (A) 1 %; CH 30.1; CHCM 32.7; Eosinophils # (A) 0.3 k/uL (0-0.7); Eosinophils % (A) 5 %; HCT 25.5 % (39.0-53.0); HDW 3.59; Hypochromasia Slight; Luc # (Auto) 0.11; Luc % (Auto) 2; Lymphocytes # (A) 0.8 k/uL (1.0-4.8); Lymphocytes % (A) 14 %; MCH 29.3 pg (25.0-35.0); MCHC 31.7 g/dL (31.0-37.0); MCV 92.5 fL (80.0-100.0); Mean Platelet Volume 7.6; Monocytes # (A) 0.4 k/uL (0-1.0); Monocytes % (A) 6 %; Neutrophils # (A) 4.2 k/uL (1.3-7.7); Neutrophils % (A) 73 %; Poikilocytosis Slight; RBC 2.76 m/uL (4.30-5.90); RDW 14.9 % (11.5-15.5); WBC 5.7 k/uL (3.8-10.6); WBC (Perox) 5.72
[2017-09-18 14:31] LABS: Partial Thromboplastin Time 35.2 sec (22.0-30.0)
[2017-09-18 14:32] LABS: HGB 8.1 gm/dL (13.0-17.5)
[2017-09-18 14:34] LABS: Prothrombin Time 18.9 sec (9.0-12.0)
[2017-09-18 14:36] LABS: ALT 63 U/L (21-72); AST 35 U/L (17-59); Alkaline Phosphatase 173 U/L (38-126); Anion Gap 13 mmol/L; Blood Urea Nitrogen 29 mg/dL (9-20); Calcium 9.1 mg/dL (8.4-10.2); Carbon Dioxide 25 mmol/L (22-30); Chloride 97 mmol/L (98-107); Glucose 139 mg/dL (74-99); Magnesium 2.2 mg/dL (1.6-2.3); Non-African American GFR(MDRD) 53 (>60 ml/min/1.73 sqM); Potassium 3.8 mmol/L (3.5-5.1); Sodium 135 mmol/L (137-145); Total Bilirubin 0.5 mg/dL (0.2-1.3); Total Protein 6.7 g/dL (6.3-8.2)
[2017-09-18 14:46] LABS: Creatine Kinase 59 U/L (55-170)
[2017-09-18 14:59] LABS: Creatine Kinase MB 1.5 ng/mL (0.0-2.4); Troponin I <0.012 ng/mL (0.000-0.034)
[2017-09-18] MEDS ORDERED: PANTOPRAZOLE 40 MG/10 ML VIAL IVP STA (16:23)
[2017-09-18] MEDS ORDERED: MORPHINE SULFATE 4 MG/ML SYRINGE IVP STA (16:41)
[2017-09-18 17:50] VITALS: BP 133/75; PULSE 70; TEMP 98
== END 2017-09-18 17:45 | disposition short-term general hospital (02) ==
LOC: EC 13:24
DX: I73.9 Peripheral vascular disease, unspecified (principal); K92.2 Gastrointestinal hemorrhage, unspecified; K92.1 Melena; R60.0 Localized edema; I10 Essential (primary) hypertension; M19.90 Unspecified osteoarthritis, unspecified site; H57.8 Other specified disorders of eye and adnexa; Z79.01 Long term (current) use of anticoagulants; Z87.891 Personal history of nicotine dependence; Z79.02 Long term (current) use of antithrombotics/antiplatelets; Z79.82 Long term (current) use of aspirin; Z79.899 Other long term (current) drug therapy; Z88.8 Allergy status to other drugs, medicaments and biological substances; Z86.73 Personal history of transient ischemic attack (TIA), and cerebral infarction without residual deficits; Z86.718 Personal history of other venous thrombosis and embolism; Z95.828 Presence of other vascular implants and grafts; Z82.49 Family history of ischemic heart disease and other diseases of the circulatory system
CPT/HCPCS: 36415; 86900; 86901; 80053; 82550; 82553; 83735; 84484; 85025; 85610; 85730; 86850; 82272; 99285; 96374; 96375; J2270; C9113

== ENCOUNTER 2017-09-26 16:06 | Emergency (ER) | payer MEDICARE, OTHER ==
[2017-09-26 16:14] VITALS: RESP 16
--- NOTE | 2017-09-26 17:20 | XR ---
EXAMINATION TYPE: XR foot complete LT DATE OF EXAM: 09/26/2017 COMPARISON: 02/23/2015 HISTORY: 77-year-old male with pain, black distal third toe TECHNIQUE: 3 views FINDINGS: Mild degenerative changes at the first MTP joint. Chronic bony irregularity at the lateral base of th e first proximal phalanx likely relating to prior capsular injury. There is dorsal soft tissue swelli ng. Vascular calcifications suggest underlying diabetes and/or chronic kidney disease. Small plantar calcaneal spur. No soft tissue gas, periostitis, or osteolysis seen. IMPRESSION: Dorsal soft tissue swelling. First MTP joint osteoarthrosis and small plantar calcaneal spur. No radi ographic evidence for osteomyelitis at this time.
[2017-09-26] MEDS ORDERED: CEPHALEXIN 500MG STARTER PACK 4 CAP BTL PO STA (17:38)
--- NOTE | 2017-09-26 17:39 | ED ---
General Adult HPI - General Chief complaint: Wound/Laceration Stated complaint: Black Toe Time Seen by Provider: 09/26/17 16:20 Source: patient, family, RN notes reviewed, old records reviewed Mode of arrival: wheelchair Limitations: no limitations - History of Present Illness Initial comments: Patient 77-year-old male significant past medical history for arterial occlusion of the left lower extremity, presenting today with a chief complaint of increased swelling to the left lower leg. He states he was seen by his visiting nurse who advised come here to emergency room for evaluation and need for an antibiotic. Patient states that he has noticed some redness over the anterior aspect. Does admit that he had angioplasty done a week and a half ago. He states she's had good revascularization of the left lower leg and has been improvement of chronic wounds to the first and third digits. Patient admits that there has been some increased swelling. He does admit that he is on blood thinners of both Plavix and Xeralto. Patient denies any other complaints or symptoms. Patient denies any recent fever, chills, shortness of breath, chest pain, back pain, abdominal pain, nausea or vomiting, dysuria or hematuria, constipation or diarrhea, headaches or visual changes, or any other complaints. - Related Data Home Medications Medication Instructions Recorded Confirmed Aspirin [Adult Low Dose Aspirin EC] 81 mg PO DAILY 03/18/17 09/26/17 Clopidogrel Bisulfate [Plavix] 75 mg PO DAILY 03/18/17 09/26/17 Dorzolamide/Timolol/Pf [Cosopt Pf 1 drop BOTH EYES BID 03/18/17 09/26/17 2%/5% Ophth Droperette] Latanoprost [Xalatan 0.005%] 1 drop BOTH EYES DAILY@1400 03/18/17 09/26/17 Simvastatin [Zocor] 20 mg PO HS 03/18/17 09/26/17 Hydrocodone/Acetaminophen [[place] 1 tab PO Q4HR PRN 09/18/17 09/26/17 5-325] Rivaroxaban [Xarelto] 15 mg PO BID 09/18/17 09/26/17 Previous Rx's Medication Instructions Recorded Cephalexin [Keflex] 500 mg PO Q12HR 10 Days cap 09/26/17 Allergies Allergy/AdvReac Type Severity Reaction Status Date / Time dipyridamole AdvReac JOINT AND Verified 09/26/17 16:19 MUSCLE PAIN Review of Systems ROS Statement: Those systems with pertinent positive or pertinent negative responses have been documented in the HPI. ROS Other: All systems not noted in ROS Statement are negative. Past Medical History Past Medical History: CVA/TIA, Deep Vein Thrombosis (DVT), Eye Disorder, Hypertension, Osteoarthritis (OA), Vascular Disorder Additional Past Medical History / Comment(s): TIA long time ago, PVD, swelling of left foot & pain, GLAUCOMA, current cold sx. History of Any Multi-Drug Resistant Organisms: None Reported Past Surgical History: Heart Catheterization, Heart Catheterization With Stent Additional Past Surgical History / Comment(s): 3 stents in left leg, angioplasty nicole legs, aortogram, nicole cataracts, FEMPOP BYPASS LT LEG Past Anesthesia/Blood Transfusion Reactions: No Reported Reaction Date of Last Stent Placement:: 2016 Past Psychological History: Depression Smoking Status: Former smoker Past Alcohol Use History: Occasional Past Drug Use History: None Reported - Past Family History Mother Family Medical History: Diabetes Mellitus Father Family Medical History: Coronary Artery Disease (CAD), Rheumatoid Arthritis (RA) Additional Family Medical History / Comment(s): ARTERIAL SCLEROSIS General Exam - General Exam Comments Initial Comments: General: The patient is awake and alert, in no distress, and does not appear acutely ill. Eye: Pupils are equal, round and reactive to light, extra-ocular movements are intact. No nystagmus. There is normal conjunctiva bilaterally. No signs of icterus. Ears, nose, mouth and throat: There are moist mucous membranes and no oral lesions. Neck: The neck is supple, there is no tenderness or JVD. Cardiovascular: There is a regular rate and rhythm. No murmur, rub or gallop is appreciated. Respiratory: Lungs are clear to auscultation, respirations are non-labored, breath sounds are equal. No wheezes, stridor, rales, or rhonchi. Gastrointestinal: Soft, non-distended, non-tender abdomen without masses or organomegaly noted. There is no rebound or guarding present. No CVA tenderness. Bowel sounds are unremarkable. Musculoskeletal: Normal ROM, no tenderness. Strength 5/5. Sensation intact. Patient does have decreased pulses to the left lower extremity which he states is chronic Neurological: A&O x 3. CN II-XII intact, There are no obvious motor or sensory deficits. Coordination appears grossly intact. Speech is normal. Skin: Mild swelling to the left lower extremity. There is some redness to the anterior aspect with some streaking going up left faustin. Necrosis tissue of the lateral aspect of the third digit distally. Psychiatric: Cooperative, appropriate mood & affect, normal judgment. Limitations: no limitations Course Vital Signs 09/26/17 16:07 Temperature 97.5 F L Pulse Rate 68 Respiratory 16 Rate Blood Pressure 171/70 O2 Sat by Pulse 100 Oximetry Medical Decision Making - Medical Decision Making Case discussed in detail with attending physician Dr. Singh. Patient states he was sent here to receive antibiotic. Patient is on Plavix and Xeralto. Patient will be started on antibiotics of Keflex to cover for cellulitis. Advised follow-up with his family doctor he has an appointment in 2 days and also his vascular surgeon. Advised return if any symptoms increase worsen or patient states understanding and is in agreement. Disposition Clinical Impression: Cellulitis Disposition: HOME SELF-CARE Condition: Good Instructions: Cellulitis (ED) Additional Instructions: Please use medication as discussed. Please follow-up with vascular surgeon/ family doctor in the next 2 days of symptoms have not improved. Please return to emergency room if the symptoms increase or worsen or for any other concerns. Prescriptions: Cephalexin [Keflex] 500 mg PO Q12HR 10 Days cap Referrals: Abdi Sam MD [Primary Care Provider] - 1-2 days Time of Disposition: 17:33
[2017-09-26 18:18] VITALS: BP 136/78; PULSE 78; TEMP 97.8
== END 2017-09-26 18:16 | disposition home or self-care (01) ==
LOC: EC 16:06
DX: L03.116 Cellulitis of left lower limb (principal); M19.90 Unspecified osteoarthritis, unspecified site; I73.9 Peripheral vascular disease, unspecified; Z86.73 Personal history of transient ischemic attack (TIA), and cerebral infarction without residual deficits; Z86.718 Personal history of other venous thrombosis and embolism; Z87.891 Personal history of nicotine dependence; Z88.8 Allergy status to other drugs, medicaments and biological substances; Z79.82 Long term (current) use of aspirin; Z79.02 Long term (current) use of antithrombotics/antiplatelets; Z79.01 Long term (current) use of anticoagulants; Z79.891 Long term (current) use of opiate analgesic; Z79.899 Other long term (current) drug therapy
CPT/HCPCS: 99284

== ENCOUNTER 2018-12-12 14:04 | Emergency (ER) | payer MEDICARE, OTHER ==
[2018-12-12 14:11] VITALS: RESP 18
--- NOTE | 2018-12-12 14:29 | ED ---
General Adult HPI - General Chief complaint: Neuro Symptoms/Deficit Stated complaint: Poss stroke Time Seen by Provider: 12/12/18 14:16 Source: patient, family, RN notes reviewed Mode of arrival: ambulatory Limitations: no limitations - History of Present Illness Initial comments: Patient is a pleasant 78-year-old male presenting to the emergency Department with complaints of left-sided facial weakness. Patient noticed symptoms when he woke this morning around 10 AM. Patient has had somewhat of a headache over the past week or so. Headache was gradual onset and did start becoming severe. Patient states headache however has resolved at this time. Patient does not have chronic headaches. No history of previous weakness. No confusion. No arm or leg involvement. Patient states he is also having difficulty closing his left eye. - Related Data Home Medications Medication Instructions Recorded Confirmed Clopidogrel Bisulfate [Plavix] 75 mg PO QAM 03/18/17 12/12/18 Dorzolamide/Timolol/Pf [Cosopt Pf 1 drop BOTH EYES BID 03/18/17 12/12/18 2%/5% Ophth Droperette] Simvastatin [Zocor] 20 mg PO HS 03/18/17 12/12/18 Pantoprazole Sodium [Protonix] 40 mg PO QAM 10/06/17 12/12/18 Gabapentin [Neurontin] 300 mg PO TID 11/18/17 12/12/18 Furosemide [Lasix] 40 mg PO DAILY 12/30/17 12/12/18 Aspirin EC [Ecotrin Low Dose] 81 mg PO DAILY 12/12/18 12/12/18 Potassium Chloride ER [K-Dur 20] 20 meq PO DAILY 12/12/18 12/12/18 Travoprost [Travatan Z 0.004%] 1 drop BOTH EYES DAILY 12/12/18 12/12/18 Previous Rx's Medication Instructions Recorded predniSONE 20 mg PO TID #21 tab 12/12/18 valACYclovir HCL [Valtrex] 1,000 mg PO TID #21 tablet 12/12/18 Allergies Allergy/AdvReac Type Severity Reaction Status Date / Time No Known Allergies Allergy Verified 12/12/18 14:59 Review of Systems ROS Statement: Those systems with pertinent positive or pertinent negative responses have been documented in the HPI. ROS Other: All systems not noted in ROS Statement are negative. Constitutional: Denies: fever Eyes: Denies: eye pain ENT: Reports: other (Mild rhinorrhea). Denies: ear pain, hearing loss Respiratory: Denies: cough Cardiovascular: Denies: chest pain Endocrine: Denies: fatigue Gastrointestinal: Denies: abdominal pain Genitourinary: Denies: dysuria Musculoskeletal: Denies: back pain Skin: Denies: rash Neurological: Reports: as per HPI. Denies: confusion, abnormal gait Past Medical History Past Medical History: CVA/TIA, Deep Vein Thrombosis (DVT), Eye Disorder, Hypertension, Osteoarthritis (OA), Vascular Disorder Additional Past Medical History / Comment(s): TIA long time ago, PVD, swelling of left foot & pain, GLAUCOMA, current cold sx. History of Any Multi-Drug Resistant Organisms: None Reported Past Surgical History: Heart Catheterization, Heart Catheterization With Stent Additional Past Surgical History / Comment(s): 3 stents in left leg, angioplasty nicole legs, aortogram, nicole cataracts, FEMPOP BYPASS LT LEG Past Anesthesia/Blood Transfusion Reactions: No Reported Reaction Date of Last Stent Placement:: 2016 Past Psychological History: Depression Smoking Status: Former smoker - Past Family History Mother Family Medical History: Diabetes Mellitus Father Family Medical History: Coronary Artery Disease (CAD), Rheumatoid Arthritis (RA) Additional Family Medical History / Comment(s): ARTERIAL SCLEROSIS General Exam Limitations: no limitations General appearance: alert, in no apparent distress Head exam: Present: atraumatic Eye exam: Present: normal appearance, PERRL, EOMI ENT exam: Present: normal oropharynx Neck exam: Present: normal inspection Respiratory exam: Present: normal lung sounds bilaterally Cardiovascular Exam: Present: regular rate, normal rhythm GI/Abdominal exam: Present: soft. Absent: tenderness Extremities exam: Present: normal inspection Neurological exam: Present: alert, oriented X3, CN II-XII intact (Except for left facial droop that does also include forehead weakness. Patient has difficulty closing left eye) Expanded Neurological exam: Present: protecting the airway Patient oriented to: Present: person, place, time Speech: Present: fluid speech Cranial nerves: EOM's Intact: Normal, Facial Sensation: Normal Sensory exam: Upper Extremity Light Touch: Normal, Lower Extremity Light Touch: Normal Motor strength exam: RUE: 5, LUE: 5, RLE: 5, LLE: 5 Eye Response: (4) open spontaneously Motor Response: (6) obeys commands Verbal Response: (5) oriented Psychiatric exam: Present: normal affect, normal mood Skin exam: Present: normal color. Absent: rash Course Vital Signs 12/12/18 12/12/18 14:07 16:46 Temperature 97.7 F Pulse Rate 89 57 L Respiratory 18 18 Rate Blood Pressure 148/83 142/63 O2 Sat by Pulse 96 99 Oximetry EKG Findings - EKG Comments: EKG Findings:: Sinus bradycardia 58. NC 206, first-degree AV block. QRS 94. QT 410. QTc 402. Normal axis. Normal QRS. No acute ST change. Medical Decision Making - Medical Decision Making Patient reevaluated and unchanged. Patient updated on results and need for follow-up. - Lab Data Result diagrams: 12/12/18 14:28 12/12/18 14:28 Lab Results 12/12/18 12/12/18 12/12/18 Range/Units 14:28 14:28 14:28 WBC 5.1 (3.8-10.6) k/uL RBC 4.33 (4.30-5.90) m/uL Hgb 13.5 (13.0-17.5) gm/dL Hct 39.7 (39.0-53.0) % MCV 91.7 (80.0-100.0) fL MCH 31.2 (25.0-35.0) pg MCHC 34.0 (31.0-37.0) g/dL RDW 14.3 (11.5-15.5) % Plt Count 168 (150-450) k/uL Neutrophils % 55 % Lymphocytes % 22 % Monocytes % 6 % Eosinophils % 14 % Basophils % 1 % Neutrophils # 2.8 (1.3-7.7) k/uL Lymphocytes # 1.1 (1.0-4.8) k/uL Monocytes # 0.3 (0-1.0) k/uL Eosinophils # 0.7 (0-0.7) k/uL Basophils # 0.1 (0-0.2) k/uL PT 11.0 (9.0-12.0) sec INR 1.0 (<1.2) APTT 25.7 (22.0-30.0) sec Sodium 140 (137-145) mmol/L Potassium 4.1 (3.5-5.1) mmol/L Chloride 103 (98-107) mmol/L Carbon Dioxide 26 (22-30) mmol/L Anion Gap 11 mmol/L BUN 21 H (9-20) mg/dL Creatinine 1.07 (0.66-1.25) mg/dL Est GFR (CKD-EPI)AfAm 77 (>60 ml/min/1.73 sqM) Est GFR (CKD-EPI)NonAf 66 (>60 ml/min/1.73 sqM) Glucose 104 H (74-99) mg/dL Calcium 9.4 (8.4-10.2) mg/dL Total Bilirubin 0.8 (0.2-1.3) mg/dL AST 33 (17-59) U/L ALT 33 (21-72) U/L Alkaline Phosphatase 84 (38-126) U/L Total Protein 7.8 (6.3-8.2) g/dL Albumin 4.8 (3.5-5.0) g/dL - Radiology Data Radiology results: report reviewed (Computed tomography scan of the brain does not show acute process. CTA shows stenosis less than 70% of the internal carotid arteries.), image reviewed (Chest x-ray shows no acute process) Disposition Clinical Impression: Hastings's palsy Disposition: HOME SELF-CARE Condition: Stable Instructions (If sedation given, give patient instructions): [place] Palsy (ED) Additional Instructions: Please follow-up with primary care physician in the next day or 2 for recheck. Please also follow-up with your vascular surgeon and have him review computed tomography scan of the neck and carotid arteries. Return for confusion, change or worsening symptoms, or any other concerns. Please use Lacri-Lube are similar wetting drops to the eye at least 4 times daily and prior to going to bed. Also tape left eye shut at nighttime. Prescriptions: predniSONE 20 mg PO TID #21 tab valACYclovir HCL [Valtrex] 1,000 mg PO TID #21 tablet Is patient prescribed a controlled substance at d/c from ED?: No Referrals: Abdi Sam MD [Primary Care Provider] - 1-2 days Time of Disposition: 17:40
[2018-12-12 14:44] LABS: Basophils # (A) 0.1 k/uL (0-0.2); Basophils % (A) 1 %; Eosinophils # (A) 0.7 k/uL (0-0.7); Eosinophils % (A) 14 %; HCT 39.7 % (39.0-53.0); HGB 13.5 gm/dL (13.0-17.5); Lymphocytes # (A) 1.1 k/uL (1.0-4.8); Lymphocytes % (A) 22 %; MCH 31.2 pg (25.0-35.0); MCV 91.7 fL (80.0-100.0); Mean Platelet Volume 7.6; Monocytes # (A) 0.3 k/uL (0-1.0); Monocytes % (A) 6 %; Neutrophils # (A) 2.8 k/uL (1.3-7.7); Neutrophils % (A) 55 %; Platelet Count 168 k/uL (150-450); RBC 4.33 m/uL (4.30-5.90); RDW 14.3 % (11.5-15.5); WBC 5.1 k/uL (3.8-10.6)
[2018-12-12 14:58] LABS: Partial Thromboplastin Time 25.7 sec (22.0-30.0)
[2018-12-12 15:00] LABS: Albumin 4.8 g/dL (3.5-5.0); Calcium 9.4 mg/dL (8.4-10.2); Potassium 4.1 mmol/L (3.5-5.1); Total Bilirubin 0.8 mg/dL (0.2-1.3); Total Protein 7.8 g/dL (6.3-8.2)
--- NOTE | 2018-12-12 15:50 | CT ---
EXAMINATION TYPE: CT brain wo con for TPA DATE OF EXAM: 12/12/2018 COMPARISON: None INDICATION: Left side facial weakness. DLP: 1088 mGycm, Automated exposure control for dose reduction was used. CONTRAST: None CT of the brain is performed utilizing 3 mm thick sections through the posterior fossa and 3 mm thick sections through the remaining calvarium. Study is performed within 24 hours of arrival to the hosp [facility]. No abnormal hyperdensity is present to suggest an acute intracranial hemorrhage. No mass lesion is evident. No acute infarcts are evident. There is an old lacunar infarct within the posterior left edward radia ta. Periventricular white matter hypodensity is present, likely on the basis of chronic white matter ischemic changes. Ventricles and sulci are mildly prominent for the patient age. There is opacification through ethmoid air cells compatible with sinusitis changes. Remaining paranas al sinuses visualized are clear. Mastoid air cells are clear. IMPRESSIONS: 1. Age-related atrophy with periventricular white matter ischemic changes. 2. Old lacunar infarct left posterior edward radiata. 3. No suspicious changes to account for left facial weakness
--- NOTE | 2018-12-12 16:28 | XR ---
EXAMINATION TYPE: XR chest 2V DATE OF EXAM: 12/12/2018 COMPARISON: None INDICATION: Altered mental status left facial droop TECHNIQUE: Frontal and lateral views of the chest are obtained. FINDINGS: The heart size is normal. The pulmonary vasculature is normal. The lungs are clear. IMPRESSION: 1. No acute pulmonary process.
--- NOTE | 2018-12-12 17:22 | CT ---
EXAMINATION TYPE: CT angio head neck DATE OF EXAM: 12/12/2018 HISTORY: Left side facial weakness. COMPARISON: CT DLP: 351.7 mGycm. Automated Exposure Control for Dose Reduction was Utilized. TECHNIQUE: CTA scan of the neck is performed with IV Contrast, patient injected with 65ml mL of Isov ue 370, axial images are obtained, coronal and sagittal reformatted images are reviewed. Three-D holger nstructed images are created on an independent workstation and reviewed. FINDINGS: Carotid/Vascular Structures: Common carotid arteries have calcification at the bifurcation. The inter nal carotid arteries extend to the skull base. Calculations the left internal carotid artery origin has a 65% stenosis. Based on the measurements at the right internal carotid artery the degree of stenosis is 68%. On visual inspection these appear g reater. Correlate with the patient's clinical symptoms. Three-D reconstructed images performed separately by the technologist are reviewed. Right vertebral a rtery is dominant. The left vertebral artery however is not included with the Three-D reconstructed i mages. This is present on the source images. [place]: Vertebral basilar system appears normal. Posterior cerebral vasculature is unremark able. Middle cerebral artery branches are normal. Anterior communicating artery is patent. Internal c arotid arteries bifurcate normally into A1 and M1 segments. Middle cerebral artery branches are unrem arkable. Posterior communicating arteries are not identified. Other: Lung apices within the [id number] are clear. Portion of the thyroid visualized is normal. IMPRESSION: 1. Based on calculations the carotid artery bifurcation stenosis is moderate between 50 and 69%. Visu al inspection however suggests these are greater than 70%. Clinical correlation with patient's sympto ms is recommended. 2. [place] appears within normal limits.
[2018-12-12 18:20] VITALS: BP 153/74; PULSE 68; TEMP 98.4
== END 2018-12-12 18:10 | disposition home or self-care (01) ==
LOC: EC 14:04
DX: G51.0 Bell's palsy (principal); I65.23 Occlusion and stenosis of bilateral carotid arteries; I10 Essential (primary) hypertension; M19.90 Unspecified osteoarthritis, unspecified site; I73.9 Peripheral vascular disease, unspecified; H40.9 Unspecified glaucoma; Z87.891 Personal history of nicotine dependence; Z79.02 Long term (current) use of antithrombotics/antiplatelets; Z79.82 Long term (current) use of aspirin; Z79.899 Other long term (current) drug therapy; Z86.73 Personal history of transient ischemic attack (TIA), and cerebral infarction without residual deficits; Z86.718 Personal history of other venous thrombosis and embolism; Z95.818 Presence of other cardiac implants and grafts; Z95.828 Presence of other vascular implants and grafts
CPT/HCPCS: 36415; 93005; 80053; 85025; 85610; 85730; 71046; 70496; 70450; 70498; 99284; Q9967

== ENCOUNTER → 2018-12-13 | Outpatient (CLI) | payer MEDICARE, OTHER ==
--- NOTE | 2018-12-14 08:41 | CT ---
EXAMINATION TYPE: CT angio abd aorta w/Runoff DATE OF EXAM: 12/13/2018 COMPARISON: None. HISTORY: Peripheral vascular disease. Pt was here 12/12/18. [place] Palsy in LT side face. Hx stents in circumflex and both legs CT DLP: 1669.10 mGycm, Automated Exposure Control for Dose Reduction was Utilized. CONTRAST: CTA scan of the abdomen and pelvis with lower extremity runoff is performed without oral and with IV Contrast, patient injected with 125 mL of Isovue 370. Three-D reconstructed images are created on a [employer] workstation and reviewed. FINDINGS: VASCULAR: There is patent celiac artery and SMA with mild calcified plaque at origins, more mild to m oderate mixed plaque in the SMA is identified, no significant stenosis is present. Moderate mixed raul que is seen at origin of left renal artery without significant stenosis. There is moderate predominan tly calcified plaque in the infrarenal abdominal aorta. There is patent WILBER identified. No significan t stenosis is seen. Mild calcified plaque extends to bilateral common iliac arteries. Mild calcified plaque extends into bilateral internal iliac arteries. There is minimal plaque in the right external iliac artery. There is more severe focal noncalcified plaque at origin of right common femoral artery extending int o the proximal superficial femoral artery which appears completely occluded near image 133. There is patent profunda femoris without significant stenosis . Focal plaque at its origin is present. There i s reconstitution in the proximal SFA with severe mixed plaque along its course causing multifocal sig nificant stenosis. Severe calcified plaque extends into the popliteal artery with areas of additional significant stenosis for reference proximal popliteal artery axial image 245 noted. Mid to distal po pliteal artery shows less prominent plaque without significant stenosis. There is visualization of sa tisfactory bifurcation into anterior tibial and tibial peroneal arteries. Anterior tibial artery show s irregular contour suspicious for moderate plaque without significant stenosis. There is subsequent bifurcation of posterior tibial arteries. There is good three-vessel flow at proximal to mid leg leve l as satisfactory tube vessel flow at distal leg and ankle level. Past the ankle mortise level there is suboptimal evaluation of the anterior tibial artery and dorsalis pedis past mid calcaneal level. Left external iliac artery shows moderate plaque mid to distal segments without significant stenosis. There is moderate peripheral plaque in the left groin at the common femoral artery. There is stent g raft beginning at this level with adjacent clips axial image 144, there is suspected narrowing right at origin likely just over 50% near image 145. Remainder of the stent graft shows satisfactory opacif ication without significant intraluminal stenosis. Distal anastomosis shows moderate to severe eccent eladia plaque with significant stenosis in the proximal left popliteal artery near image 248 identified. There is moderate to severe mixed plaque in the proximal to mid popliteal artery with moderate eccen tric calcified plaque in the mid to distal segments, no additional significant stenosis is clearly se en. There is satisfactory bifurcation anterior tibial and tibial peroneal arteries, anterior tibial a rtery shows moderate irregularity and plaque. There is moderate to severe eccentric calcified plaque in the tibial peroneal artery with satisfactory bifurcation. There is good three-vessel flow in the p roximal to mid leg and satisfactory two-vessel flow level of ankle. There is suboptimal opacification past ankle mortise making evaluation of foot suboptimal. LUNG BASES: Three-vessel coronary artery calcification is partially visualized, noted marker for unde rlying coronary artery disease. LIVER/GB: No significant abnormality is appreciated. PANCREAS: No significant abnormality is seen. SPLEEN: No significant abnormality is seen. ADRENALS: No significant abnormality is seen. KIDNEYS: There is 1.4 cm diverticulum along posterior right bladder wall axial image 128 BOWEL: No significant abnormality is seen. PROSTATE/SEMINAL VESICLES: No gross abnormality seen. LYMPH NODES: No greater than 1cm abdominal or pelvic lymph nodes are appreciated. OSSEOUS STRUCTURES: There is prominent multilevel spurring in the thoracolumbar spine. There is multi level facet arthropathy in the mid to lower lumbar spine. OTHER: No significant additional abnormality is seen. EXTREMITIES: No significant abnormality is seen. IMPRESSION: 1. There is short segment complete occlusion of the right superficial femoral artery shortly after it s origin. There is multifocal significant stenosis in the visualized right superficial femoral and po pliteal arteries also identified. 2. There is patent left SFA stent graft without significant stenosis except at proximal anastomosis w here suspect focal stenosis just over 50% on single image axial image 145. There is also significant stenosis in the proximal left popliteal artery shortly after distal anastomosis.
== END | disposition home or self-care (01) ==
LOC: RADCTMAIN 16:07
PROVIDERS: ATTEND Surgery
DX: I70.201 Unspecified atherosclerosis of native arteries of extremities, right leg (principal); I70.92 Chronic total occlusion of artery of the extremities; Z95.820 Peripheral vascular angioplasty status with implants and grafts
CPT/HCPCS: 82565; 84520; 75635; 36415; Q9967

== ENCOUNTER → 2019-01-03 | Outpatient (CLI) | payer MEDICARE, OTHER ==
[2019-01-03 11:53] LABS: Basophils % (A) 0 %; Eosinophils # (A) 0.2 k/uL (0-0.7); Eosinophils % (A) 3 %; HCT 41.2 % (39.0-53.0); HGB 13.5 gm/dL (13.0-17.5); Lymphocytes % (A) 23 %; MCH 31.5 pg (25.0-35.0); MCHC 32.7 g/dL (31.0-37.0); MCV 96.1 fL (80.0-100.0); Mean Platelet Volume 6.8; Monocytes # (A) 0.5 k/uL (0-1.0); Monocytes % (A) 5 %; Neutrophils # (A) 5.9 k/uL (1.3-7.7); Neutrophils % (A) 67 %; Platelet Count 145 k/uL (150-450); RBC 4.28 m/uL (4.30-5.90); RDW 15.6 % (11.5-15.5); WBC 8.8 k/uL (3.8-10.6)
[2019-01-03 12:03] LABS: Potassium 4.8 mmol/L (3.5-5.1)
== END | disposition home or self-care (01) ==
LOC: LABPAT 10:58
PROVIDERS: ATTEND Surgery
DX: Z01.812 Encounter for preprocedural laboratory examination (principal); I73.9 Peripheral vascular disease, unspecified
CPT/HCPCS: 36415; 80051; 82565; 84520; 85025

== ENCOUNTER 2019-01-11 06:18 | Day surgery (SDC) | payer MEDICARE, OTHER ==
[2019-01-05 09:38] VITALS: BMI 27.8
[~2019-01-11 06:18] MED LIST changes: -ALPRAZolam 0.5 MG TAB PO PRN; -ATORVASTATIN 80 MG TAB PO STA; -NITROGLYCERIN SL TABS 0.4 MG TAB SUBLINGUAL PRN
[2019-01-11 07:01] LABS: Basophils % (A) 1 %; Eosinophils # (A) 0.3 k/uL (0-0.7); Eosinophils % (A) 7 %; HCT 37.2 % (39.0-53.0); HGB 12.2 gm/dL (13.0-17.5); Lymphocytes % (A) 23 %; MCH 30.8 pg (25.0-35.0); MCHC 32.9 g/dL (31.0-37.0); MCV 93.7 fL (80.0-100.0); Mean Platelet Volume 7.2; Monocytes # (A) 0.3 k/uL (0-1.0); Monocytes % (A) 6 %; Neutrophils # (A) 2.6 k/uL (1.3-7.7); Neutrophils % (A) 61 %; Platelet Count 149 k/uL (150-450); RBC 3.97 m/uL (4.30-5.90); RDW 15.2 % (11.5-15.5); WBC 4.2 k/uL (3.8-10.6)
[2019-01-11 07:07] VITALS: RESP 16; TEMP 97.5
[2019-01-11 07:16] LABS: Anion Gap 7 mmol/L; Blood Urea Nitrogen 19 mg/dL (9-20); Calcium 8.7 mg/dL (8.4-10.2); Carbon Dioxide 23 mmol/L (22-30); Chloride 110 mmol/L (98-107); Glucose 100 mg/dL (74-99); Potassium 4.5 mmol/L (3.5-5.1); Sodium 140 mmol/L (137-145)
[2019-01-11] MEDS ORDERED: MIDAZOLAM 2 MG/2 ML VIAL IVP ONE (07:45)
[2019-01-11] MEDS ORDERED: fentaNYL (PF) 50 MCG/ML 2 ML AMP IV ONE (07:45)
[2019-01-11] MEDS ORDERED: LIDOCAINE 1% INJ 10MG/ML (20 ML MDV) SQ ONE (07:53)
[2019-01-11] MEDS ORDERED: IOPAMIDOL-250 100ML BTL INTRAARTER ONE (08:16)
--- NOTE | 2019-01-11 09:41 | P.OP ---
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 superficial femoral artery Procedure(s) Performed: aortogram with bilateral lower extremity runoff right lower extremity ilio-femoral angiogram Anesthesia: local, other (moderate sedation x 35 minutes) Surgeon: Dejuan David Estimated Blood Loss (ml): 5 Pathology: none sent Condition: stable Disposition: other (Patient will require right common femoral artery endarterectomy.) Indications for Procedure: 78 year old male with history of claudication with previous left lower extremity intervention and stenting presented to the office with new complaints of rest pain and severe claudication of the right lower extremity. He had zulay's done in the office which demonstrated right side of 0.5. CT evaluation showed occlusion of the SFA at the take off. He presents today for right lower extremity angiogram with atherectomy. Operative Findings: occluded right femoral artery with sfa occlusion at the takeoff and recollateralization of the profunda and sfa. Description of Procedure: After written and informed consent was obtained from the patient and all risks, benefits, and complications were described the patient was then brought to the slab miller operator and laid in a supine position. The left groin was prepped and draped in the usual sterile fashion. Time-out was done in normal fashion with all parties in agreement. Utilizing ultrasound and Seldinger technique left common femoral artery was accessed and a 5-[place] sheath was placed. 035 Glidewire was then placed into the abdominal aorta followed by a rim catheter and the right common iliac artery was accessed with the 035 Glidewire. Glidewire was then attempted to be placed within the common femoral and met resistance. At that time a quick cross catheter was placed in an up and over fashion and angiogram was obtained. Upon angiogram there was a sharp cut off at the distal external iliac artery at the takeoff of the common femoral artery with a total occlusion of the common femoral with recollateralization of the profunda and just distal to the occlusion of the SFA. At that time a Glidewire was replaced and catheter was removed. The pigtail catheter was then placed and angiogram with runoff was obtained. Upon angiogram there was complete occlusion of the right common femoral artery with reconstitution of the superficial femoral and deep femoral arteries with significant disease throughout the entirety of the SFA with intermittent stenosis with the worst being approximately 80-90% at the mid SFA. There were three-vessel takeoff below the knee and then the contrast dissipated towards the ankle. The left lower extremity common femoral artery was widely patent there was some candy wrapping stenosis noted at the previously placed stent of the superficial femoral artery. The SFA stent was widely patent to the popliteal where there was once again candy wrapping stenosis at the distal aspect. Patient had three-vessel runoff to the ankle. Once completed all guidewires and catheters were removed and the sheath was removed and pressure was held for hemostasis. Hemostasis was assured and the area was dressed. Patient tied procedure well and was sent to recovery. Plan - Discharge Summary Discharge Rx Participant: Yes New Discharge Prescriptions: No Action Dorzolamide/Timolol/Pf [Cosopt Pf 2%/5% Ophth Droperette] 1 drop BOTH EYES BID Simvastatin [Zocor] 20 mg PO HS Clopidogrel Bisulfate [Plavix] 75 mg PO QAM Pantoprazole Sodium [Protonix] 40 mg PO QAM Gabapentin [Neurontin] 300 mg PO TID Furosemide [Lasix] 40 mg PO DAILY Potassium Chloride ER [K-Dur 20] 20 meq PO DAILY Aspirin EC [Ecotrin Low Dose] 81 mg PO DAILY Travoprost [Travatan Z 0.004%] 1 drop BOTH EYES DAILY Discharge Medication List Clopidogrel Bisulfate [Plavix] 75 mg PO QAM 03/18/17 [History] Dorzolamide/Timolol/Pf [Cosopt Pf 2%/5% Ophth Droperette] 1 drop BOTH EYES BID 03/18/17 [History] Simvastatin [Zocor] 20 mg PO HS 03/18/17 [History] Pantoprazole Sodium [Protonix] 40 mg PO QAM 10/06/17 [History] Gabapentin [Neurontin] 300 mg PO TID 11/18/17 [History] Furosemide [Lasix] 40 mg PO DAILY 12/30/17 [History] Aspirin EC [Ecotrin Low Dose] 81 mg PO DAILY 12/12/18 [History] Potassium Chloride ER [K-Dur 20] 20 meq PO DAILY 12/12/18 [History] Travoprost [Travatan Z 0.004%] 1 drop BOTH EYES DAILY 12/12/18 [History]
--- NOTE | 2019-01-11 10:50 | IR ---
Fluoroscopy HISTORY: Pain in leg 5 minutes fluoroscopy time supplied to the referring clinician. 109 intraoperative C-arm images docu ment the procedure. See dictated report from vascular surgery.
[2019-01-11 11:11] VITALS: BP 128/60
[2019-01-11 13:24] VITALS: PULSE 56
== END 2019-01-11 13:24 | disposition home or self-care (01) ==
LOC: CATHCVL 06:18
PROVIDERS: ATTEND Surgery
DX: I70.221 Atherosclerosis of native arteries of extremities with rest pain, right leg (principal); Z79.82 Long term (current) use of aspirin; Z79.899 Other long term (current) drug therapy; Z98.42 Cataract extraction status, left eye; Z98.41 Cataract extraction status, right eye; Z87.891 Personal history of nicotine dependence; Z82.49 Family history of ischemic heart disease and other diseases of the circulatory system; Z95.820 Peripheral vascular angioplasty status with implants and grafts
CPT/HCPCS: 36245; 75625; 75716; 80048; 85025; 99152; 99153; C1894 ×2; C1769 ×3; J2250; J2001; J3010; Q9966

== ENCOUNTER → 2019-02-21 | Outpatient (CLI) | payer MEDICARE, OTHER ==
[2019-02-21 12:50] LABS: Basophils % (A) 1 %; Eosinophils # (A) 0.4 k/uL (0-0.7); Eosinophils % (A) 9 %; HCT 36.6 % (39.0-53.0); HGB 12.1 gm/dL (13.0-17.5); Hypochromasia Slight; Lymphocytes % (A) 21 %; MCV 93.9 fL (80.0-100.0); Mean Platelet Volume 8.8; Monocytes # (A) 0.3 k/uL (0-1.0); Monocytes % (A) 6 %; Neutrophils # (A) 2.9 k/uL (1.3-7.7); Neutrophils % (A) 60 %; Platelet Count 177 k/uL (150-450); RBC 3.89 m/uL (4.30-5.90); RDW 14.7 % (11.5-15.5); WBC 4.7 k/uL (3.8-10.6)
[2019-02-21 12:56] LABS: Appearance,Urine Clear (Clear); Bilirubin,Urine Negative (Negative); Blood,Urine Negative (Negative); Color,Urine Yellow; Glucose,Urine (UA) Negative (Negative); Ketones,Urine Negative (Negative); Leukocyte Esterase,Urine Negative (Negative); Nitrite,Urine Negative (Negative); Protein,Urine Trace (Negative); Specific Gravity,Urine 1.026 (1.001-1.035); Urobilinogen,Urine <2.0 mg/dL (<2.0)
[2019-02-21 13:18] LABS: Potassium 4.9 mmol/L (3.5-5.1)
== END ==
LOC: LABPAT 11:20
PROVIDERS: ATTEND Surgery
DX: Z01.812 Encounter for preprocedural laboratory examination (principal); I74.3 Embolism and thrombosis of arteries of the lower extremities
CPT/HCPCS: 36415; 80051; 81003; 82565; 84520; 85025

== ENCOUNTER 2019-03-01 07:09 | Inpatient (IN) | payer MEDICARE, OTHER ==
[2019-02-22 11:13] VITALS: BMI 28.3
[~2019-03-01 07:09] MED LIST changes: -ALPRAZolam 0.25 MG TAB PO PRN; -ASPIRIN 325 MG TAB PO STA; +DEXAMETHASONE SOD PHOSPHATE 10 MG/ML 1 ML VIAL IV ONE; +HYDROmorphone 0.5 MG/0.5 ML SYRINGE IVP PRN; +LIDOCAINE 1% 20 ML VIAL (10MG/ML) FOR IV START INTRADERMA PRN; +MIDAZOLAM 2 MG/2 ML VIAL IV PRN; +ONDANSETRON 4 MG/2 ML VIAL IVP ONE; +SCOPOLAMINE 1.5MG/72HR PATCH TRANSDERM ONE; -SODIUM CHLORIDE 0.9% 1,000 ML in EMPTY BAG 1 BAG IV ONE; +ceFAZolin IN SWFI 2 GM/20 ML SYRINGE IVP ONE
[2019-03-01] MEDS: LACTATED RINGERS 1,000 ML IV SCH (07:51)
[2019-03-01 08:32] LABS: Potassium 5.3 mmol/L (3.5-5.1)
[2019-03-01] MEDS ORDERED: HEPARIN SODIUM,PORCINE 10,000 UNIT/ML 1 ML VIAL ONE (09:18)
[2019-03-01] MEDS ORDERED: MIDAZOLAM 2 MG/2 ML VIAL ONE (09:18)
[2019-03-01] MEDS ORDERED: ePHEDrine SULFATE/0.9% NACL/PF 50 MG/5 ML SYRINGE IV ONE (09:18)
[2019-03-01] MEDS ORDERED: LACTATED RINGERS 1,000 ML IV ONE ×3 (10:36→13:44)
[2019-03-01] MEDS ORDERED: HYDROcodone/APAP 5-325MG 1 EACH TAB PO PRN (12:51)
[2019-03-01] MEDS ORDERED: MORPHINE SULFATE 2 MG/ML SYRINGE IVP PRN (12:51)
[2019-03-01 14:31] LABS: Glucose,Whole Blood 152 mg/dL (75-99)
[2019-03-01] MEDS: GABAPENTIN 300 MG CAP PO SCH ×2 (17:17→21:06)
[2019-03-01 18:05] LABS: Basophils % (A) 0 %; Eosinophils % (A) 0 %; HCT 37.6 % (39.0-53.0); HGB 12.3 gm/dL (13.0-17.5); Lymphocytes # (A) 0.5 k/uL (1.0-4.8); Lymphocytes % (A) 6 %; MCH 29.9 pg (25.0-35.0); MCHC 32.6 g/dL (31.0-37.0); MCV 91.8 fL (80.0-100.0); Mean Platelet Volume 8.4; Monocytes # (A) 0.1 k/uL (0-1.0); Monocytes % (A) 2 %; Neutrophils # (A) 7.4 k/uL (1.3-7.7); Neutrophils % (A) 91 %; Platelet Count 190 k/uL (150-450); RDW 14.3 % (11.5-15.5); WBC 8.1 k/uL (3.8-10.6)
[2019-03-01 18:16] LABS: ALT 22 U/L (21-72); AST 19 U/L (17-59); Albumin 4.4 g/dL (3.5-5.0); Alkaline Phosphatase 67 U/L (38-126); Anion Gap 9 mmol/L; Blood Urea Nitrogen 20 mg/dL (9-20); Calcium 9.2 mg/dL (8.4-10.2); Carbon Dioxide 24 mmol/L (22-30); Chloride 107 mmol/L (98-107); Glucose 128 mg/dL (74-99); Magnesium 1.9 mg/dL (1.6-2.3); Phosphorus 3.7 mg/dL (2.5-4.5); Potassium 4.2 mmol/L (3.5-5.1); Sodium 140 mmol/L (137-145); Total Bilirubin 0.6 mg/dL (0.2-1.3); Total Protein 6.9 g/dL (6.3-8.2)
[2019-03-01] MEDS ORDERED: Magnesium Replacement Protocol 1 EACH MISC MISCELLANE PRN (18:24)
[2019-03-01] MEDS ORDERED: PANTOPRAZOLE 40 MG TABLET PO SCH (18:30)
[2019-03-01] MEDS ORDERED: ASPIRIN 81 MG PO SCH (18:30)
[2019-03-01] MEDS: MAGNESIUM SULFATE-D5W PMX 1 GM in DEXTROSE/WATER 1 100ML.BAG IVPB SCH ×2 (19:00→20:46)
[2019-03-01] MEDS: DORZOLAMIDE-TIMOLOL 2.23%/0.68 10ML BTL BOTH EYES SCH (20:46)
[2019-03-01] MEDS ORDERED: ATORVASTATIN 10 MG TAB PO SCH (21:00)
--- NOTE | 2019-03-01 23:31 | CONS ---
CONSULTATION CHIEF COMPLAINT: A 78-year-old white male who was admitted to the hospital for PAD repair, right leg. The patient is able to move his feet without any pain at this time. No chest pain or shortness of breath. He is at bedrest due to Dr. David's orders. Diet is he is eating regular diet. Home med have been restarted. Possible discharge home tomorrow. He is on Plavix, Lipitor, aspirin, [place], Lasix, gabapentin, Dilaudid, Xalatan, lidocaine, magnesium replacement, versed. PHYSICAL EXAM: Vital signs stable. Afebrile. CARDIOVASCULAR: S1, S2. LUNGS: Clear. GI: Soft. HEMATOLOGY: Negative Homans. NEUROLOGIC: Alert, oriented x3. Cranial nerves are intact. VASCULAR: Normal dorsalis pedis. ASSESSMENT: Status post PAD repair of the right leg. Medically stable at this time. Home medicines have been restarted. Home medicines were reordered. Follow up as an outpatient. Possibly discharge tomorrow. Thank you for the consult, Dr. David. MMODL / IJN: [id number] /
[2019-03-02 05:07] LABS: Basophils % (A) 0 %; Eosinophils % (A) 0 %; HGB 10.9 gm/dL (13.0-17.5); Lymphocytes # (A) 0.8 k/uL (1.0-4.8); Lymphocytes % (A) 7 %; MCH 30.1 pg (25.0-35.0); MCHC 33.2 g/dL (31.0-37.0); MCV 90.8 fL (80.0-100.0); Mean Platelet Volume 8.6; Monocytes # (A) 0.6 k/uL (0-1.0); Monocytes % (A) 5 %; Neutrophils # (A) 9.2 k/uL (1.3-7.7); Neutrophils % (A) 86 %; Platelet Count 194 k/uL (150-450); RBC 3.63 m/uL (4.30-5.90); RDW 14.4 % (11.5-15.5); WBC 10.8 k/uL (3.8-10.6)
[2019-03-02 05:17] LABS: Anion Gap 7 mmol/L; Blood Urea Nitrogen 21 mg/dL (9-20); Calcium 8.5 mg/dL (8.4-10.2); Carbon Dioxide 24 mmol/L (22-30); Chloride 107 mmol/L (98-107); Glucose 106 mg/dL (74-99); Magnesium 2.4 mg/dL (1.6-2.3); Potassium 4.4 mmol/L (3.5-5.1); Sodium 138 mmol/L (137-145)
[2019-03-02] MEDS: LACTATED RINGERS 1,000 ML IV SCH (08:17)
[2019-03-02] MEDS ORDERED: FUROSEMIDE 40 MG TAB PO SCH (09:00)
[2019-03-02] MEDS ORDERED: POTASSIUM CHLORIDE ER 20 MEQ TAB.ER PO SCH (09:00)
[2019-03-02] MEDS ORDERED: LATANOPROST 0.005% OPHTH DROPS 2.5 ML BTL BOTH EYES SCH (09:00)
[2019-03-02] MEDS ORDERED: CLOPIDOGREL 75 MG TAB PO SCH (09:00)
[2019-03-02 09:59] VITALS: TEMP 97.6
[2019-03-02] MEDS: DORZOLAMIDE-TIMOLOL 2.23%/0.68 10ML BTL BOTH EYES SCH (10:05)
[2019-03-02] MEDS: GABAPENTIN 300 MG CAP PO SCH (10:06)
[2019-03-02 12:44] VITALS: BP 129/47; PULSE 69; RESP 26
--- NOTE | 2019-03-03 13:27 | P.PN ---
Subjective Progress Note Date: 03/02/19 This is a 78-year-old gentleman status post right common femoral artery endarterectomy with patch graft. Prevena wound VAC applied. Tolerated procedure well. Ambulating with in room, without difficulty. Surgical pain controlled. Afebrile with WBC 10.8. Telemetry sinus rhythm. Hemoglobin 10.9. Denies chest pain, palpitations or increasing shortness of breath. Afebrile. Vascular surgery discussing discharging home today. Objective - Vital Signs Vital signs: Vital Signs Temp 97.6 F 03/02/19 12:00 Pulse 69 03/02/19 12:00 Resp 26 H 03/02/19 12:00 BP 129/47 03/02/19 12:00 Pulse Ox 94 L 03/02/19 12:00 Intake & Output 03/01/19 03/02/19 03/02/19 18:59 06:59 18:59 Intake Total 1980 340 920 Output Total 725 400 850 Balance 1255 -60 70 Weight 73.1 kg Intake: IV 1900 240 200 Lactated Ringers 1,000 ml 240 200 @ 20 mls/hr IV .Q24H YVETTE Rx#:[id number] Intake, IV Titration 80 100 720 Amount Lactated Ringers 1,000 ml 80 720 @ 20 mls/hr IV .Q24H YVETTE Rx#:[id number] Magnesium Sulfate-D5w Pmx 100 1 gm In Dextrose/Water 1 100ml.bag @ 100 mls/hr IVPB Q1H YVETTE Rx#: [id number] Output: Urine 525 400 850 Estimated Blood Loss 200 Other: Voiding Method Urinal # Voids 1 1 ABP, PAP, CO, CI - Last Documented Arterial Blood Pressure 131/39 - Exam PHYSICAL EXAM: VITAL SIGNS: As above GENERAL: Sitting up in bed, no acute distress HEENT: Conjunctivae normal. eyes normal. Oral mucosa moist NECK: No JVD. No thyroid enlargement. No LNs CARDIOVASCULAR: S1, S2 regular. No murmur RESPIRATION: Breath sounds diminished in the bases. No rhonchi or crackles. ABDOMEN: Soft, nontender . No guarding. no masses palpable.Bowel sounds heard. LEGS: Status post surgery-right leg with prevena wound vac present. Positive DP. PSYCHIATRY: Alert and oriented -3, mood and affect normal. NERVOUS SYSTEM: Cranial N 2-12 grossly normal. Moves all 4 limbs. Diffuse w eakness No focal deficits. No sensory deficit. No signs of cerebellar dysfucntion. Skin: no ulcer no rash - Labs CBC & Chem 7: 03/02/19 04:20 03/02/19 04:20 Labs: Abnormal Lab Results - Last 24 Hours (Table) 03/01/19 03/01/19 03/02/19 Range/Units 17:33 17:33 04:20 WBC 10.8 H (3.8-10.6) k/uL RBC 4.10 L 3.63 L (4.30-5.90) m/uL Hgb 12.3 L 10.9 L (13.0-17.5) gm/dL Hct 37.6 L 33.0 L (39.0-53.0) % Neutrophils # 9.2 H (1.3-7.7) k/uL Lymphocytes # 0.5 L 0.8 L (1.0-4.8) k/uL BUN (9-20) mg/dL Glucose 128 H (74-99) mg/dL Magnesium (1.6-2.3) mg/dL 03/02/19 Range/Units 04:20 WBC (3.8-10.6) k/uL RBC (4.30-5.90) m/uL Hgb (13.0-17.5) gm/dL Hct (39.0-53.0) % Neutrophils # (1.3-7.7) k/uL Lymphocytes # (1.0-4.8) k/uL BUN 21 H (9-20) mg/dL Glucose 106 H (74-99) mg/dL Magnesium 2.4 H (1.6-2.3) mg/dL Assessment and Plan Assessment: -PAD, status post right common femoral artery endarterectomy with patch graft. Prevena wound VAC. Plan: Continue on current medication regime ,monitoring and symptomatic treatment. Patient is being discharged home today as per vascular surgery. Follow up as outpatient discussed. Thank you for allowing us to participate in care of this pleasant gentleman Dr. David. The impression and plan of care has been dictated as directed. : I performed a history and examination of this patient, discussed the same with the dictator. I agree with the dictator's note ,documented as a scribe. Any additional findings or plans will be noted. Time taken: 35 minutes
--- NOTE | 2019-03-03 21:27 | P.OP ---
Date of Procedure: 03/01/19 Preoperative Diagnosis: right lower extremity severe disabiling claudication with right femoral artery occlusion Postoperative Diagnosis: Same Procedure(s) Performed: right common femoral artery endarterectomy with patch angioplasty Implants: bovine pericardial patch Anesthesia: spinal Surgeon: Dejuan David Estimated Blood Loss (ml): 50 Pathology: other (femoral plaque) Condition: stable Disposition: PACU Indications for Procedure: 78 year old male with history of PAD and right lower extremity claudication that has been worsening over the last several months presents today for right femoral artery endarterectomy with patch angioplasty secondary to femoral occlusion. He states unable to ambulate no more than 30 feet with severe calf pain. Operative Findings: Dense common femoral, superficial femoral and profunda plaque with occlusion of common and superficial femoral arteries. Description of Procedure: After written and informed consent was obtained from the patient and all risks, benefits and complications were discussed the patient was brought to the operative suite and laid in a supine position. The area of the right groin was prepped and draped in the usual sterile fashion. Time-out was performed in normal fashion. The patient was given antibiotics prior to any incision. An oblique incision was then created with a 10 blade scalpel at the right groin and deepened with electrocautery to the femoral artery. The common femoral, superficial femoral and deep femoral arteries were dissected free in a circumferential manner and controlled with vessel loops. The patient was then given heparin and followed with serial ACTs. All vessels were then controlled with vascular clamps and arteriotomy was created with an 11 blade scalpel and extended with a Galarza Bautista scissors. Dense plaque was encountered with no lumen consistent with occlusion. Endarterectomy was then performed from the SFA extending to the external iliac artery. Plaque was removed and sent for pathol guerda. The backbleeding was then assessed which was brisk from the profunda and sufficient from the SFA. All free debris was removed and a patch was placed. A bovine pericardial patch angioplasty was then performed with 6-0 prolene suture. Control was released revealing good pulse and multiphasic signal in both the superficial femoral and profundus arteries. Hemostasis was controlled with Surgicel and the area was irrigated with antibiotic solution. The incision was then closed in a multilayer fashion and skin cleansed and dressed with Prevena Vac. The patient tolerated the procedure well and sent to the PACU for recovery.
--- NOTE | 2019-03-04 12:42 | CDI ---
Documentation Clarification Form Date: 03/04/2019 11:38:00 AM From: Stephie Han Dodie Aguiar, Regulator Mechanic Hours-8:30 am & 5 pm MGurjit Admit Date: 03/01/2019 7:09:00 AM Patient Name: Saravanan Sharma Visit Number: [id number] Discharge Date: 03/02/2019 3:18:00 PM ATTENTION: The Clinical Documentation Specialists (CDI) and [facility] Coding Staff appreciate your assistance in clarifying documentation. Please respond to the clarification below the line at the bottom and electronically sign. The CDI & [facility] Coding staff will review the response and follow-up if needed. Please note: Queries are made part of the Legal Health Record. If you have any questions, please contact the author of this message via ITS. Dr. Dejuan David Patient is admitted for right lower extremity severe disabling claudication with right femoral artery occlusion. Treatment: Right common femoral artery endartectomy with patch angioplasty In your professional opinion, can the occlusion be further specified? Chronic Total Occlusion Partial Occlusion Other, please specify Unable to determine chronic total occlusion MTDD
--- NOTE | 2019-03-04 21:30 | P.DS ---
Providers Date of admission: 03/01/19 07:09 Expected date of discharge: 03/02/19 Attending physician: Dejuan David DO Consults: 03/01/19 12:53 Consult Physician Routine Consulting Provider: Abdi Sam Consult Reason/Comments: medical management Do you want consulting provider notified?: Yes Primary care physician: Abdi Sam - Discharge Diagnosis(es) (1) Thrombosis of right common femoral artery Status: Acute Priority: High Hospital Course: Underwent right femoral endarterectomy with patch angioplasty without complications. Admitted for pain control, tolerated a diet, and was ambulating the following day without issue and was discharged home in stable condition. Procedures: right common femoral endarterectomy Patient Condition at Discharge: Stable Plan - Discharge Summary Discharge Rx Participant: No New Discharge Prescriptions: No Action Dorzolamide/Timolol/Pf [Cosopt Pf 2%/5% Ophth Droperette] 1 drop BOTH EYES BID Simvastatin [Zocor] 20 mg PO HS Clopidogrel Bisulfate [Plavix] 75 mg PO QAM Pantoprazole Sodium [Protonix] 40 mg PO PC-SUPPER Gabapentin [Neurontin] 300 mg PO TID Furosemide [Lasix] 40 mg PO DAILY Potassium Chloride ER [K-Dur 20] 20 meq PO DAILY Aspirin EC [Ecotrin Low Dose] 81 mg PO PC-SUPPER Travoprost [Travatan Z 0.004%] 1 drop BOTH EYES DAILY Discharge Medication List Clopidogrel Bisulfate [Plavix] 75 mg PO QAM 03/18/17 [History] Dorzolamide/Timolol/Pf [Cosopt Pf 2%/5% Ophth Droperette] 1 drop BOTH EYES BID 03/18/17 [History] Simvastatin [Zocor] 20 mg PO HS 03/18/17 [History] Pantoprazole Sodium [Protonix] 40 mg PO PC-SUPPER 10/06/17 [History] Gabapentin [Neurontin] 300 mg PO TID 11/18/17 [History] Furosemide [Lasix] 40 mg PO DAILY 12/30/17 [History] Aspirin EC [Ecotrin Low Dose] 81 mg PO PC-SUPPER 12/12/18 [History] Potassium Chloride ER [K-Dur 20] 20 meq PO DAILY 12/12/18 [History] Travoprost [Travatan Z 0.004%] 1 drop BOTH EYES DAILY 12/12/18 [History] Follow up Appointment(s)/Referral(s): Dejuan David DO [STAFF PHYSICIAN] - 03/08/19 3:30 pm Abdi Sam MD [Primary Care Provider] - 1 Week Patient Instructions/Handouts: How to Stop Smoking (DC), Remote Superficial Femoral Artery Endarterectomy (DC) Activity/Diet/Wound Care/Special Instructions: no heavy lifting greater than 15 lbs x 2 weeks. resume regular diet maintain prevena vac x 6 days. Will remove in office next thursday. Discharge Disposition: HOME SELF-CARE
== END 2019-03-02 15:18 | disposition home or self-care (01) | DRG 253 ==
LOC: 2ORMAIN 07:09 → 2SICU 13:23
PROVIDERS: ADMIT Surgery; ATTEND Surgery
PROC: 04UK0KZ Supplement Right Femoral Artery with Nonautologous Tissue Substitute, Open Approach (ICD-10-PCS; 2019-03-01)
PROC: 04CK0ZZ Extirpation of Matter from Right Femoral Artery, Open Approach (ICD-10-PCS; principal; 2019-03-01 09:00)
DX: I70.213 Atherosclerosis of native arteries of extremities with intermittent claudication, bilateral legs (principal); I70.92 Chronic total occlusion of artery of the extremities; G62.9 Polyneuropathy, unspecified; I25.10 Atherosclerotic heart disease of native coronary artery without angina pectoris; M19.90 Unspecified osteoarthritis, unspecified site; I10 Essential (primary) hypertension; I25.2 Old myocardial infarction; Z79.02 Long term (current) use of antithrombotics/antiplatelets; Z79.82 Long term (current) use of aspirin; Z79.899 Other long term (current) drug therapy; Z95.5 Presence of coronary angioplasty implant and graft; Z86.73 Personal history of transient ischemic attack (TIA), and cerebral infarction without residual deficits; Z98.42 Cataract extraction status, left eye; Z98.41 Cataract extraction status, right eye; Z86.718 Personal history of other venous thrombosis and embolism; Z95.828 Presence of other vascular implants and grafts; Z87.891 Personal history of nicotine dependence; Z88.8 Allergy status to other drugs, medicaments and biological substances; Z82.49 Family history of ischemic heart disease and other diseases of the circulatory system; Z83.3 Family history of diabetes mellitus
CPT/HCPCS: 80048; 80051; 80053; 83735; 84100; 85025; 86850; 86900; 86901; 88304; 88311

== ENCOUNTER 2019-11-10 06:42 | Observation (INO) | payer MEDICARE, OTHER ==
--- NOTE | 2019-11-10 07:01 | ED ---
General Adult HPI - General Source: patient, RN notes reviewed Mode of arrival: ambulatory Limitations: no limitations <Hesham Brown - Last Filed: 11/10/19 17:47> <Lauren Gonzales - Last Filed: 11/18/19 14:09> - General Chief complaint: GI Bleed Stated complaint: GI Bleed Time Seen by Provider: 11/10/19 06:53 - History of Present Illness Initial comments: 79-year-old male with a past medical history of CVA, hypertension, DVT currently on Plavix presents to the emergency department for a chief complaint of rectal bleeding. Patient states that for the past 3 weeks he has had diarrhea a few times a day but has not noticed any bleeding. Since I last night at 7 PM he noticed he had some dark red blood in his stool. States this occured about 5-6 times. He denies any lightheadedness. He denies any abdominal pain. Patient has no other complaints at this time including shortness of breath, chest pain, abdominal pain, nausea or vomiting, headache, or visual changes. (Hesham Brown) - Related Data Home Medications Medication Instructions Recorded Confirmed Dorzolamide/Timolol/Pf [Cosopt Pf 1 drop BOTH EYES BID 03/18/17 11/10/19 2%/5% Ophth Droperette] Pantoprazole Sodium [Protonix] 40 mg PO PC-SUPPER 10/06/17 11/10/19 Gabapentin [Neurontin] 300 mg PO TID 11/18/17 11/10/19 Travoprost [Travatan Z 0.004%] 1 drop BOTH EYES DAILY 12/12/18 11/10/19 Previous Rx's Medication Instructions Recorded Aspirin EC [Ecotrin Low Dose] 81 mg PO PC-SUPPER #0 11/11/19 Clopidogrel Bisulfate [Plavix] 75 mg PO QAM #0 11/11/19 Allergies Allergy/AdvReac Type Severity Reaction Status Date / Time rivaroxaban [From Xarelto] Allergy "internal Verified 11/10/19 08:32 bleeding" Review of Systems ROS Other: All systems not noted in ROS Statement are negative. <Hesham Brown - Last Filed: 11/10/19 17:47> ROS Other: All systems not noted in ROS Statement are negative. <Damer,Lauren A - Last Filed: 11/18/19 14:09> ROS Statement: Those systems with pertinent positive or pertinent negative responses have been documented in the HPI. Past Medical History Past Medical History: CVA/TIA, Deep Vein Thrombosis (DVT), Eye Disorder, Hypertension, Osteoarthritis (OA), Vascular Disorder Additional Past Medical History / Comment(s): TIA long time ago, PVD, swelling of left foot & pain, GLAUCOMA, current cold sx. History of Any Multi-Drug Resistant Organisms: None Reported Past Surgical History: Heart Catheterization, Heart Catheterization With Stent Additional Past Surgical History / Comment(s): 3 stents in left leg, angioplasty nicole legs, aortogram, nicole cataracts, FEMPOP BYPASS LT LEG Past Anesthesia/Blood Transfusion Reactions: No Reported Reaction Date of Last Stent Placement:: 2016 Past Psychological History: Depression Smoking Status: Former smoker Past Alcohol Use History: Occasional Past Drug Use History: None Reported - Past Family History Mother Family Medical History: No Reported History Father Family Medical History: Coronary Artery Disease (CAD), Rheumatoid Arthritis (RA) Additional Family Medical History / Comment(s): ARTERIAL SCLEROSIS <Hesham Brown P - Last Filed: 11/10/19 17:47> General Exam Limitations: no limitations General appearance: alert, in no apparent distress Head exam: Present: atraumatic, normocephalic, normal inspection Eye exam: Present: normal appearance, PERRL, EOMI. Absent: scleral icterus, conjunctival injection, periorbital swelling ENT exam: Present: normal exam, mucous membranes moist Neck exam: Present: normal inspection, full ROM. Absent: tenderness, meningismus, lymphadenopathy Respiratory exam: Present: normal lung sounds bilaterally. Absent: respiratory distress, wheezes, rales, rhonchi, stridor Cardiovascular Exam: Present: regular rate, normal rhythm, normal heart sounds. Absent: systolic murmur, diastolic murmur, rubs, gallop, clicks Rectal exam: Present: normal inspection, normal rectal tone Neurological exam: Present: alert Psychiatric exam: Present: normal affect, normal mood <Hesham Brown P - Last Filed: 11/10/19 17:47> Course Vital Signs 11/10/19 11/10/19 11/10/19 06:46 11:30 14:00 Temperature 98.0 F Pulse Rate 78 68 Respiratory 18 18 18 Rate Blood Pressure 158/75 139/59 O2 Sat by Pulse 98 100 Oximetry Medical Decision Making - Lab Data Result diagrams: 11/10/19 07:35 11/10/19 07:35 <Hesham Brown - Last Filed: 11/10/19 17:47> - Lab Data Result diagrams: 11/11/19 07:51 11/11/19 07:51 <Lauren Gonzales - Last Filed: 11/18/19 14:09> - Medical Decision Making 79-year-old male currently on Plavix for fem-pop bypass presents to the emergency department for rectal bleeding. Patient has had 6 episodes since last night. Patient describes this as dark red diarrhea. Denies abdominal pain. Patient has had diarrhea for several weeks without bleeding and reports having taken an antibiotic prior to this. Denies lightheadedness. Patient does have a history of acute anemia secondary to GI bleed in 2017. Exam is unremarkable. Hemoglobin is stable at 12.2. Occult blood is positive. Patient was given Protonix given possibility of upper GI bleed. (Hesham Brown) I was available for consultation in the emergency department. The history and physical exam were done by the midlevel provider. I was consulted for this patients care. I reviewed the case with the midlevel provider and based on their presentation of the patient, I agree with the assessment, medical decision making and plan of care as documented. I examined the patient myself. he is hemodynamically stable. Patient has history of previous GI bleed in past. I recommended hospital admission. Discussed case with Dr. Barber who accepted admission for the patient even though the patient has yet to establish care with him. Patient does have upcoming appointment scheduled for December. Patient transferred to floor in stable condition. Chart was dictated using [employer] dictation software. Attempts were made to correct any dictation errors however some typographical errors may persist. (Lauren Gonzales) - Lab Data Lab Results 11/10/19 11/10/19 11/10/19 Range/Units 07:35 07:35 07:35 WBC 4.0 (3.8-10.6) k/uL RBC 4.16 L (4.30-5.90) m/uL Hgb 12.2 L (13.0-17.5) gm/dL Hct 37.7 L (39.0-53.0) % MCV 90.5 (80.0-100.0) fL MCH 29.3 (25.0-35.0) pg MCHC 32.4 (31.0-37.0) g/dL RDW 14.5 (11.5-15.5) % Plt Count 177 (150-450) k/uL Neutrophils % 59 % Lymphocytes % 18 % Monocytes % 7 % Eosinophils % 12 % Basophils % 1 % Neutrophils # 2.3 (1.3-7.7) k/uL Lymphocytes # 0.7 L (1.0-4.8) k/uL Monocytes # 0.3 (0-1.0) k/uL Eosinophils # 0.5 (0-0.7) k/uL Basophils # 0.0 (0-0.2) k/uL PT (9.0-12.0) sec INR (<1.2) APTT (22.0-30.0) sec Sodium 143 (137-145) mmol/L Potassium 5.2 H (3.5-5.1) mmol/L Chloride 110 H (98-107) mmol/L Carbon Dioxide 25 (22-30) mmol/L Anion Gap 8 mmol/L BUN 20 (9-20) mg/dL Creatinine 0.95 (0.66-1.25) mg/dL Est GFR (CKD-EPI)AfAm 88 (>60 ml/min/1.73 sqM) Est GFR (CKD-EPI)NonAf 76 (>60 ml/min/1.73 sqM) Glucose 113 H (74-99) mg/dL Calcium 8.5 (8.4-10.2) mg/dL Total Bilirubin 0.6 (0.2-1.3) mg/dL AST 50 (17-59) U/L ALT 29 (4-49) U/L Alkaline Phosphatase 90 (38-126) U/L Total Protein 6.8 (6.3-8.2) g/dL Albumin 4.0 (3.5-5.0) g/dL Stool Occult Blood Positive (Negative) 11/10/19 Range/Units 07:35 WBC (3.8-10.6) k/uL RBC (4.30-5.90) m/uL Hgb (13.0-17.5) gm/dL Hct (39.0-53.0) % MCV (80.0-100.0) fL MCH (25.0-35.0) pg MCHC (31.0-37.0) g/dL RDW (11.5-15.5) % Plt Count (150-450) k/uL Neutrophils % % Lymphocytes % % Monocytes % % Eosinophils % % Basophils % % Neutrophils # (1.3-7.7) k/uL Lymphocytes # (1.0-4.8) k/uL Monocytes # (0-1.0) k/uL Eosinophils # (0-0.7) k/uL Basophils # (0-0.2) k/uL PT 11.0 (9.0-12.0) sec INR 1.0 (<1.2) APTT 23.1 (22.0-30.0) sec Sodium (137-145) mmol/L Potassium (3.5-5.1) mmol/L Chloride (98-107) mmol/L Carbon Dioxide (22-30) mmol/L Anion Gap mmol/L BUN (9-20) mg/dL Creatinine (0.66-1.25) mg/dL Est GFR (CKD-EPI)AfAm (>60 ml/min/1.73 sqM) Est GFR (CKD-EPI)NonAf (>60 ml/min/1.73 sqM) Glucose (74-99) mg/dL Calcium (8.4-10.2) mg/dL Total Bilirubin (0.2-1.3) mg/dL AST (17-59) U/L ALT (4-49) U/L Alkaline Phosphatase (38-126) U/L Total Protein (6.3-8.2) g/dL Albumin (3.5-5.0) g/dL Stool Occult Blood (Negative) Disposition Is patient prescribed a controlled substance at d/c from ED?: No Time of Disposition: 17:48 <Hesham Brown - Last Filed: 11/10/19 17:47> <Lauren Gonzales - Last Filed: 11/18/19 14:09> Clinical Impression: GI bleed Disposition: ADMITTED IP TO THIS [facility] Condition: Stable
[2019-11-10] MEDS ORDERED: SODIUM CHLORIDE 0.9% 1,000 ML IV STA (07:08)
[2019-11-10] MEDS ORDERED: PANTOPRAZOLE 40 MG/10 ML VIAL IVP STA (07:08)
[2019-11-10 08:10] LABS: Basophils % (A) 1 %; Eosinophils # (A) 0.5 k/uL (0-0.7); Eosinophils % (A) 12 %; HCT 37.7 % (39.0-53.0); HGB 12.2 gm/dL (13.0-17.5); Lymphocytes # (A) 0.7 k/uL (1.0-4.8); Lymphocytes % (A) 18 %; MCH 29.3 pg (25.0-35.0); MCHC 32.4 g/dL (31.0-37.0); MCV 90.5 fL (80.0-100.0); Monocytes # (A) 0.3 k/uL (0-1.0); Monocytes % (A) 7 %; Neutrophils # (A) 2.3 k/uL (1.3-7.7); Neutrophils % (A) 59 %; Platelet Count 177 k/uL (150-450); RBC 4.16 m/uL (4.30-5.90); RDW 14.5 % (11.5-15.5)
[2019-11-10 08:16] LABS: Partial Thromboplastin Time 23.1 sec (22.0-30.0)
[2019-11-10 08:18] LABS: Calcium 8.5 mg/dL (8.4-10.2); Total Bilirubin 0.6 mg/dL (0.2-1.3); Total Protein 6.8 g/dL (6.3-8.2)
[2019-11-10 08:19] LABS: Potassium 5.2 mmol/L (3.5-5.1)
[2019-11-10] MEDS ORDERED: NALOXONE 0.4 MG/ML 1 ML VIAL IV PRN (09:07)
[2019-11-10] MEDS: SODIUM CHLORIDE 0.9% 1,000 ML IV SCH ×2 (10:00→19:00)
--- NOTE | 2019-11-10 10:53 | P.HPIM ---
History of Present Illness H&P Date: 11/10/19 Chief Complaint: GI bleed This is an 79-year-old male patient of Dr. Barber. Patient presented with complaints of dark stool since 7 pm last night. Patient reports about 5-6 episodes. Patient is currently on Plavix and baby aspirin for known peripheral vascular disease which he follows with Dr. David. Patient reports approximately a year and half ago he had a similar episode of GI bleed secondary to being on Xarelto for his PVD. At that time patient reports he did need blood producat and underwent colonoscopy and was decided to DC Xarelto. Patient has been on Plavix for many years without issues. Additional medical history includes CVA, hypertension, heart cath with stents over 3 years ago and depression. Patient's current hemoglobin 12.2. Patient does report approximately every 5 days he drinks 5-6 beers. Patient denies any other change to diet. Patient denies abdominal cramping nausea or vomiting. This time patient denies chest pain or shortness of breath. Patient denies nausea vomiting or diarrhea. Patient denies any urinary burning or frequency. Review of Systems Please refer to HPI otherwise unremarkable Past Medical History Past Medical History: CVA/TIA, Deep Vein Thrombosis (DVT), Eye Disorder, Hypertension, Osteoarthritis (OA), Vascular Disorder Additional Past Medical History / Comment(s): TIA long time ago, PVD, swelling of left foot & pain, GLAUCOMA, current cold sx. History of Any Multi-Drug Resistant Organisms: None Reported Past Surgical History: Heart Catheterization, Heart Catheterization With Stent Additional Past Surgical History / Comment(s): 3 stents in left leg, angioplasty nicole legs, aortogram, nicole cataracts, FEMPOP BYPASS LT LEG Past Anesthesia/Blood Transfusion Reactions: No Reported Reaction Date of Last Stent Placement:: 2016 Past Psychological History: Depression Smoking Status: Former smoker Past Alcohol Use History: Occasional Past Drug Use History: None Reported - Past Family History Mother Family Medical History: No Reported History Father Family Medical History: Coronary Artery Disease (CAD), Rheumatoid Arthritis (RA) Additional Family Medical History / Comment(s): ARTERIAL SCLEROSIS Medications and Allergies Home Medications Medication Instructions Recorded Confirmed Type Clopidogrel Bisulfate [Plavix] 75 mg PO QAM 03/18/17 11/10/19 History Dorzolamide/Timolol/Pf [Cosopt Pf 1 drop BOTH EYES BID 03/18/17 11/10/19 History 2%/5% Ophth Droperette] Pantoprazole Sodium [Protonix] 40 mg PO PC-SUPPER 10/06/17 11/10/19 History Gabapentin [Neurontin] 300 mg PO TID 11/18/17 11/10/19 History Aspirin EC [Ecotrin Low Dose] 81 mg PO PC-SUPPER 12/12/18 11/10/19 History Travoprost [Travatan Z 0.004%] 1 drop BOTH EYES DAILY 12/12/18 11/10/19 History Allergies Allergy/AdvReac Type Severity Reaction Status Date / Time rivaroxaban [From Xarelto] Allergy "internal Verified 11/10/19 08:32 bleeding" Physical Exam Vitals: Vital Signs Temp Pulse Resp BP Pulse Ox 11/10/19 06:46 98.0 F 78 18 158/75 98 Intake and Output 11/09/19 11/10/19 11/10/19 22:59 06:59 14:59 Other: Weight 74.843 kg Head normocephalic Neck supple Lungs clear to auscultation bilaterally no wheezing or crackles Heart regular rate and rhythm S1-S2, no rub or gallop Abdomen is soft nontender nondistended positive bowel sounds no hepatosplenomegaly Extremities no edema Neuro alert and orientated to 3 Results CBC & Chem 7: 11/10/19 07:35 11/10/19 07:35 Labs: Abnormal Lab Results - Last 24 Hours (Table) 11/10/19 11/10/19 Range/Units 07:35 07:35 RBC 4.16 L (4.30-5.90) m/uL Hgb 12.2 L (13.0-17.5) gm/dL Hct 37.7 L (39.0-53.0) % Lymphocytes # 0.7 L (1.0-4.8) k/uL Potassium 5.2 H (3.5-5.1) mmol/L Chloride 110 H (98-107) mmol/L Glucose 113 H (74-99) mg/dL Assessment and Plan Assessment: 1. GI bleed. Stool occult blood positive. Hemoglobin stable at 12.2. We'll continue to monitor closely. GI services have been consulted. Plavix and aspirin currently on hold 2. Diarrhea. Patient reports that diarrhea started approximately 3-4 weeks ago when he was on antibiotic for upper respiratory infection. Will order C. diff to rule out 3. History of peripheral arterial disease with repair of Right leg in March 2019. Patient reports he follows with Dr. David. Plavix and aspirin currently on hold 4. Previous history of GI bleed secondary to being on Xarelto for his PAD 5. Essential hypertension 6. History of CVA 7. History of heart cath with stents 3 years ago 8. History of depression DVT prophylaxis SCDs. GI prophylaxis Protonix GI consult placed Time with Patient: Greater than 30 (Greater than 60% of the total time spent in counseling and coordination of care. I performed an examination of the patient and discussed their management with the Nurse Practitioner. I have reviewed the Nurse Practitioner's notes and agree with the documented findings and plan of care)
[2019-11-10] MEDS: GABAPENTIN 300 MG CAP PO SCH ×2 (17:45→21:16)
[2019-11-10] MEDS ORDERED: PANTOPRAZOLE 40 MG TABLET PO SCH (18:30)
[2019-11-10] MEDS ORDERED: LATANOPROST 0.005% OPHTH DROPS 2.5 ML BTL BOTH EYES SCH (21:00)
[2019-11-10] MEDS: DORZOLAMIDE-TIMOLOL 2.23%/0.68 10ML BTL BOTH EYES SCH (21:16)
[2019-11-10 21:31] VITALS: RESP 18
--- NOTE | 2019-11-11 06:59 | CONS ---
CONSULTATION DATE OF SERVICE: 11/10/2019 REASON FOR CONSULTATION: GI bleed. HISTORY OF PRESENT ILLNESS: The patient is an 79-year-old pleasant white male who was admitted to the hospital as he was complaining of dark stools that started at 7 p.m. last night. He had about 5 or 6 of these episodes. Initially, they were maroon-colored and subsequently they turned more bright red. The patient has history of severe peripheral vascular disease and follows with Dr. David. He underwent peripheral vascular intervention several times. He has been maintained on aspirin and Plavix lately. The patient states that he had a similar episode of GI bleed about 2 years ago when he was on Xarelto at which time he underwent an EGD and colonoscopy at [facility] in [place] and according to him, small polyps were identified. The Xarelto has been discontinued at that time and since then he has been maintained on aspirin and Plavix. He presently denies any abdominal pain. He reports no nausea, vomiting. He denies any recent weight loss. He admits to moderate alcohol use and drinks about 5 to 6 cans of beer a day. Denies any history of liver disease. PAST MEDICAL HISTORY: Significant for peripheral vascular disease, history of DVT, CVA, hypertension, degenerative joint disease. PAST SURGICAL HISTORY: Cardiac catheterization with stent placement, peripheral vascular stenting with angioplasty of bilateral legs, bilateral cataract surgery, EGD, colonoscopy about 2 years ago. SOCIAL HISTORY: Former smoker. Alcohol use as mentioned above. FAMILY HISTORY: Mother unremarkable. Father rheumatoid arthritis and coronary artery disease. MEDICATIONS: Medications at home include Plavix, aspirin, Protonix, Neurontin, and Ecotrin. ALLERGIES: XARELTO. REVIEW OF SYSTEMS: CARDIOPULMONARY: No chest pain or shortness of breath. GENITOURINARY: No dysuria or hematuria. MUSCULOSKELETAL: Unremarkable. SKIN: Unremarkable. ENDOCRINE: Unremarkable. PSYCHIATRIC: Unremarkable. NEUROLOGY: Unremarkable. ENT/VISION: Unremarkable. CONSTITUTIONAL: No recent weight loss. No fever, chills, night sweats. PHYSICAL EXAMINATION: On physical examination, he appears comfortable. No apparent distress. Vital signs are stable. Blood pressure is 112/86, pulse rate 82 per minute and afebrile. HEENT: Examination unremarkable. Conjunctivae pink. Sclerae anicteric. Oral cavity no lesions. NECK: No JVD or lymph node enlargement. CHEST: Clear to auscultation. HEART: Regular rate and rhythm. ABDOMEN: Was soft. It was nontender, nondistended. Bowel sounds are positive. No organomegaly. EXTREMITIES: No pedal edema. SKIN: No rashes. NEURO: Alert and oriented x3. No focal deficits. LABS: WBC 4, hemoglobin 12.2, platelets 177. BUN 20, creatinine 0.95. Basic metabolic panel is within normal limits. IMPRESSION: 1. Acute gastrointestinal bleed. The patient has been having maroon-colored stools that started last night and had about 5 or 6 of these episodes also today. He has been on aspirin and Plavix which is currently on hold. His last bowel movement was about 3 hours ago and was more bright red blood in nature. He mentions that he had a similar episode of gastrointestinal bleed 2 years ago and underwent an EGD, colonoscopy at [place] in the [place] area and was told he had a small colon polyp. He denies any peptic ulcer disease or recent NSAID use. At this time, it is unclear whether we are dealing with an upper gastrointestinal source or a lower gastrointestinal source of bleeding. He, however, remains hemodynamically stable. 2. History of peripheral vascular disease on aspirin and Plavix, which is currently on hold. 3. Chronic diarrhea for the last 3 to 4 weeks duration. Stool for Clostridium difficile was ordered, which was negative. He has been having about 3 to 4 loose watery bowel movements daily, which are gradually improving. 4. History of hypertension. 5. History of cerebrovascular accident. RECOMMENDATIONS: 1. Clear liquid diet. 2. IV proton pump inhibitor. 3. CBC on a daily basis. 4. We will proceed with an upper endoscopy tomorrow to evaluate for upper GI source of bleeding and if negative, we will discuss possibility of a colonoscopy. Plan was discussed with the patient. He is agreeable to it. Thank you for this consultation. MMODL / IJN: [id number] /
[2019-11-11] MEDS: GABAPENTIN 300 MG CAP PO SCH (08:37)
[2019-11-11] MEDS: SODIUM CHLORIDE 0.9% 1,000 ML IV SCH (08:37)
[2019-11-11 08:42] LABS: Basophils % (A) 1 %; Eosinophils # (A) 0.6 k/uL (0-0.7); Eosinophils % (A) 13 %; HGB 12.1 gm/dL (13.0-17.5); Lymphocytes # (A) 1.1 k/uL (1.0-4.8); Lymphocytes % (A) 24 %; MCH 29.9 pg (25.0-35.0); MCHC 32.6 g/dL (31.0-37.0); MCV 91.6 fL (80.0-100.0); Mean Platelet Volume 8.4; Monocytes # (A) 0.3 k/uL (0-1.0); Monocytes % (A) 7 %; Neutrophils # (A) 2.4 k/uL (1.3-7.7); Neutrophils % (A) 52 %; Platelet Count 160 k/uL (150-450); RBC 4.04 m/uL (4.30-5.90); RDW 14.5 % (11.5-15.5); WBC 4.7 k/uL (3.8-10.6)
[2019-11-11 09:02] LABS: ALT 26 U/L (4-49); AST 29 U/L (17-59); African American GFR (CKD) >90 (>60 ml/min/1.73 sqM); Albumin 3.6 g/dL (3.5-5.0); Alkaline Phosphatase 67 U/L (38-126); Anion Gap 7 mmol/L; Blood Urea Nitrogen 20 mg/dL (9-20); Calcium 8.5 mg/dL (8.4-10.2); Carbon Dioxide 22 mmol/L (22-30); Chloride 111 mmol/L (98-107); Glucose 99 mg/dL (74-99); Non-African American GFR(CKD) 79 (>60 ml/min/1.73 sqM); Potassium 4.4 mmol/L (3.5-5.1); Sodium 140 mmol/L (137-145); Total Bilirubin 0.7 mg/dL (0.2-1.3); Total Protein 6.3 g/dL (6.3-8.2)
[2019-11-11] MEDS: DORZOLAMIDE-TIMOLOL 2.23%/0.68 10ML BTL BOTH EYES SCH (11:34)
[2019-11-11 12:14] VITALS: BP 158/67; PULSE 58; TEMP 97.6
[2019-11-11] MEDS ORDERED: PROPOFOL 10 MG/ML 20 ML VIAL IV ONE (14:19)
[2019-11-11] MEDS ORDERED: LIDOCAINE 1% INJ 10MG/ML (20 ML MDV) ONE (14:19)
[2019-11-11] MEDS ORDERED: IV FLUID CONTINUATION 1,000 ML IV ONE (14:26)
--- NOTE | 2019-11-11 14:34 | P.PCN ---
Date of Procedure: 11/11/19 Procedure(s) Performed: BRIEF HISTORY: Patient is a 79-year-old, pleasant, male admitted hospital with multiple episodes of dark colored stools. Initially the medicine subsequently turned more bright red and had at least 7 episodes prior to hospitalization. He has been on aspirin and Plavix for 2 years because been on hold. Hemoglobin was 12.1 g/dL. He scheduled for an upper endoscopy for possible upper GI source of bleeding. PROCEDURE PERFORMED: Esophagogastroduodenoscopy with biopsy. PREOPERATIVE DIAGNOSIS: Acute GI bleed. IV sedation per anesthesia. PROCEDURE: After informed consent was obtained, the patient was brought into the endoscopy unit. IV sedation was administered by Anesthesia under continuous monitoring. Initially the Olympus GIF-140 video endoscope was inserted into the mouth. Esophagus intubated without any difficulty. It was gradually advanced into the stomach and duodenum and carefully examined. The bulb and the second part of the duodenum appeared normal. The scope at this time was withdrawn to the stomach, adequately insufflated with air, and upon careful examination, mucosa of the antrum had multiple scattered erosions and biopsies were done from this area. No active bleeding noted. The, body, cardia and the fundus appeared normal. The scope was then withdrawn into the esophagus. The GE junction was located at 39 cm from the incisors. The esophagus appeared normal. There were no erosions or ulcerations seen and the patient tolerated the procedure well. IMPRESSION: 1. Antral erosive gastritis. 2. No evidence of active bleeding. RECOMMENDATIONS: The findings of this examination were discussed with the patient. He'll be continued on Protonix 40 mg daily. Since there is no further bleeding and hemoglobin is stable and as he did have a colonoscopy about a year and half ago at [facility], I do not plan on any further endoscopic intervention. Will monitor CBC and was basis. If hemoglobin is stable and no further bleeding the aspirin and Plavix can be resumed soon.
--- NOTE | 2019-11-11 15:39 | P.DS ---
Providers Date of admission: 11/10/19 09:10 Expected date of discharge: 11/11/19 Attending physician: Blake Barber Consults: 11/10/19 09:08 Consult Physician Routine Consulting Provider: Arlin Gusman Consult Reason/Comments: GI bleed, plavix Do you want consulting provider notified?: Yes Primary care physician: Stated None Hospital Course: Discharge diagnosis 1. GI bleed. Stool occult blood positive. Hemoglobin stable at 12.2. We'll continue to monitor closely. GI services have been consulted. Plavix and aspirin currently on hold. Status post EGD, showing antral erosive gastritis and no evidence of active bleeding. Discussed with case with the nurse practitioner from GI team okay for discharge. Resume Plavix and aspirin on 11/14/2019. Resume Protonix daily. Hemoglobin stable 12.1. Repeat CBC ordered in 3 days 2. Diarrhea. Patient reports that diarrhea started approximately 3-4 weeks ago when he was on antibiotic for upper respiratory infection. Will order C. diff to rule out. C. diff negative. 3. History of peripheral arterial disease with repair of Right leg in March 2019. Patient reports he follows with Dr. David. Plavix and aspirin currently on hold. adelaide resume on Thursday per GI recommendations. 4. Previous history of GI bleed secondary to being on Xarelto for his PAD 5. Essential hypertension 6. History of CVA 7. History of heart cath with stents 3 years ago 8. History of depression Hospital course This is an 79-year-old male patient of Dr. Barber. Patient presented with complaints of dark stool since 7 pm last night. Patient reports about 5-6 episodes. Patient is currently on Plavix and baby aspirin for known peripheral vascular disease which he follows with Dr. David. Patient reports approximately a year and half ago he had a similar episode of GI bleed secondary to being on Xarelto for his PVD. At that time patient reports he did need blood producat and underwent colonoscopy and was decided to DC Xarelto. Patient has been on Plavix for many years without issues. Additional medical history includes CVA, hypertension, heart cath with stents over 3 years ago and dep ression. Patient's current hemoglobin 12.2. Patient does report approximately every 5 days he drinks 5-6 beers. Patient denies any other change to diet. Patient denies abdominal cramping nausea or vomiting. This time patient denies chest pain or shortness of breath. Patient denies nausea vomiting or diarrhea. Patient denies any urinary burning or frequency. On 11/11/2019 patient was seen alert and oriented 3 resting comfortably at bedside. Patient reports he is on her having diarrhea stool is formed. She denies any blood or dark stools. Patient denies fever or chills denies chest pain shortness of breath. Patient is to resume aspirin and Plavix on 11/14/2019. Patient verbalized understanding of these instructions. I performed an examination of the patient and discussed their management with the Nurse Practitioner. I have reviewed the Nurse Practitioner's notes and agree with the documented findings and plan of care Patient Condition at Discharge: Stable Plan - Discharge Summary Discharge Rx Participant: No New Discharge Prescriptions: Continue Dorzolamide/Timolol/Pf [Cosopt Pf 2%/5% Ophth Droperette] 1 drop BOTH EYES BID Pantoprazole Sodium [Protonix] 40 mg PO PC-SUPPER Gabapentin [Neurontin] 300 mg PO TID Travoprost [Travatan Z 0.004%] 1 drop BOTH EYES DAILY Aspirin EC [Ecotrin Low Dose] 81 mg PO PC-SUPPER #0 Clopidogrel Bisulfate [Plavix] 75 mg PO QAM #0 Discharge Medication List Dorzolamide/Timolol/Pf [Cosopt Pf 2%/5% Ophth Droperette] 1 drop BOTH EYES BID 03/18/17 [History] Pantoprazole Sodium [Protonix] 40 mg PO PC-SUPPER 10/06/17 [History] Gabapentin [Neurontin] 300 mg PO TID 11/18/17 [History] Travoprost [Travatan Z 0.004%] 1 drop BOTH EYES DAILY 12/12/18 [History] Aspirin EC [Ecotrin Low Dose] 81 mg PO PC-SUPPER #0 11/11/19 [Rx] Clopidogrel Bisulfate [Plavix] 75 mg PO QAM #0 11/11/19 [Rx] Follow up Appointment(s)/Referral(s): None,Stated [Primary Care Provider] - 1-2 days Blake Barber MD [STAFF PHYSICIAN] - 1 Week Arlin Gusman MD [STAFF PHYSICIAN] - 2 Weeks Ambulatory/Diagnostic Orders: Complete Blood Count w/diff [LAB.AMB] Time Frame: 3 Days, Location: None Selected Activity/Diet/Wound Care/Special Instructions: Patient to resume aspirin and Plavix on 11/14/2019. Activity as tolerated. resume heart healthy diet. Discharge Disposition: HOME SELF-CARE
== END 2019-11-11 17:00 | disposition home or self-care (01) ==
LOC: EC 06:42 → 5NMEDONC 09:10
PROVIDERS: ADMIT Internal Medicine; ATTEND Internal Medicine
DX: K52.9 Noninfective gastroenteritis and colitis, unspecified (principal); K29.50 Unspecified chronic gastritis without bleeding; K92.2 Gastrointestinal hemorrhage, unspecified; I10 Essential (primary) hypertension; Z86.73 Personal history of transient ischemic attack (TIA), and cerebral infarction without residual deficits; I73.9 Peripheral vascular disease, unspecified; Z86.718 Personal history of other venous thrombosis and embolism; H40.9 Unspecified glaucoma; F32.9 Major depressive disorder, single episode, unspecified; M19.90 Unspecified osteoarthritis, unspecified site; M79.89 Other specified soft tissue disorders; Z95.5 Presence of coronary angioplasty implant and graft; Z98.890 Other specified postprocedural states; Z98.49 Cataract extraction status, unspecified eye; Z82.49 Family history of ischemic heart disease and other diseases of the circulatory system; Z83.2 Family history of diseases of the blood and blood-forming organs and certain disorders involving the immune mechanism; Z87.891 Personal history of nicotine dependence; Z79.899 Other long term (current) drug therapy; Z79.02 Long term (current) use of antithrombotics/antiplatelets; Z79.82 Long term (current) use of aspirin; Z88.8 Allergy status to other drugs, medicaments and biological substances
CPT/HCPCS: 96361; 96374; 99285; 36415; 88305; 80053 ×2; 85025 ×2; 85610; 85730; 82272; 87324; 43239; G0378 ×2; J2001; J2704; C9113

== ENCOUNTER → 2019-11-14 | Outpatient (CLI) | payer MEDICARE, OTHER ==
[2019-11-14 10:41] LABS: Basophils % (A) 1 %; Eosinophils # (A) 0.4 k/uL (0-0.7); Eosinophils % (A) 8 %; HCT 39.9 % (39.0-53.0); HGB 13.6 gm/dL (13.0-17.5); Lymphocytes % (A) 20 %; MCH 30.9 pg (25.0-35.0); MCHC 34.2 g/dL (31.0-37.0); MCV 90.3 fL (80.0-100.0); Mean Platelet Volume 8.8; Monocytes # (A) 0.4 k/uL (0-1.0); Monocytes % (A) 7 %; Neutrophils # (A) 3.2 k/uL (1.3-7.7); Neutrophils % (A) 62 %; Platelet Count 182 k/uL (150-450); RBC 4.42 m/uL (4.30-5.90); RDW 14.5 % (11.5-15.5); WBC 5.1 k/uL (3.8-10.6)
== END | disposition home or self-care (01) ==
LOC: LABWHC1 09:21
PROVIDERS: ATTEND Nurse Practitioner
DX: Z09 Encounter for follow-up examination after completed treatment for conditions other than malignant neoplasm (principal); Z87.19 Personal history of other diseases of the digestive system
CPT/HCPCS: 36415; 85025

== ENCOUNTER 2020-07-14 01:52 | Emergency (ER) | payer MEDICARE, OTHER ==
[2020-07-14 01:59] VITALS: TEMP 97.6
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
--- NOTE | 2020-07-14 02:47 | CT ---
EXAMINATION TYPE: CT brain alonso wo con DATE OF EXAM: 07/14/2020 COMPARISON: 12/12/2018 HISTORY: Fall CT DLP: 1353.00 mGycm Automated exposure control for dose reduction was used. There is cerebral cortical atrophy. There is no mass effect nor midline shift. There is no sign of in tracranial hemorrhage. The calvarium is intact. There is no evidence of cerebral edema. Skull base is intact. There is normal aeration of the mastoid sinuses. Occipital bone is intact. Cervical vertebra have normal alignment. There is degenerative disc narrowing and spur formation at C 3-4 and C4-5. There is no compression fracture. Facet joints are intact. There is multilevel uncovert ebral spurring. There is bilateral neural foraminal impingement at C3-4 and C4-5 due to uncovertebral spur formation. IMPRESSION: Cerebral atrophy. No acute intracranial abnormality. Spondylotic changes in the cervical spine as above. No acute abnormality. Brain unchanged compared to old exam.
--- NOTE | 2020-07-14 02:48 | XR ---
EXAMINATION TYPE: XR shoulder complete LT DATE OF EXAM: 07/14/2020 COMPARISON: NONE HISTORY: Fall. Shoulder pain. TECHNIQUE: 3 views FINDINGS: There is some spurring at the glenohumeral joint. I see no fracture nor dislocation. AC cosmo nt is intact. IMPRESSION: Mild degenerative spurring. No fracture seen.
[2020-07-14] MEDS ORDERED: ONDANSETRON 4 MG ODT STARTER PACK 2 TAB BTL PO STA (04:43)
[2020-07-14 06:10] VITALS: BP 148/71; PULSE 76; RESP 16
== END 2020-07-14 06:05 | disposition home or self-care (01) ==
LOC: EC 01:52
DX: T74.11XA Adult physical abuse, confirmed, initial encounter (principal); S00.81XA Abrasion of other part of head, initial encounter; H40.9 Unspecified glaucoma; M19.90 Unspecified osteoarthritis, unspecified site; Z79.899 Other long term (current) drug therapy; Z88.8 Allergy status to other drugs, medicaments and biological substances; Z86.73 Personal history of transient ischemic attack (TIA), and cerebral infarction without residual deficits; Z95.5 Presence of coronary angioplasty implant and graft; Z87.891 Personal history of nicotine dependence; Y04.0XXA Assault by unarmed brawl or fight, initial encounter; Y93.89 Activity, other specified; Y92.009 Unspecified place in unspecified non-institutional (private) residence as the place of occurrence of the external cause; Y07.499 Other family member, perpetrator of maltreatment and neglect
CPT/HCPCS: 73030; 72125; 70450; 99284; S0119

== ENCOUNTER → 2020-11-15 | Outpatient (CLI) | payer MEDICARE, OTHER ==
--- NOTE | 2020-11-15 09:28 | XR ---
EXAMINATION TYPE: XR lumbosacral spine 5 views DATE OF EXAM: 11/15/2020 Comparison: None Clinical History: 80-year-old male Low Back Pain Findings: Degenerative endplate spondylosis throughout, moderate degenerative disc disease L5-S1 and L3-L4. Hyp ertrophic facet arthropathy. Baastrup's disease lower lumbar spine. There is grade 1 retrolisthesis L 2-L3. Accentuated lumbar lordosis. At discarded calcification throughout the abdominal aorta. Impression: Moderate multilevel degenerative disc disease and endplate spondylosis. Hypertrophic facet arthropath y in the lumbar spine with trace grade 1 retrolisthesis at L2-L3. Accentuated lumbar lordosis. Baastr up's disease lower lumbar spine. No vertebral compression collapse.
== END | disposition home or self-care (01) ==
LOC: RADXRMAIN 08:49
PROVIDERS: ATTEND Internal Medicine
DX: M51.36 Other intervertebral disc degeneration, lumbar region (principal); M47.816 Spondylosis without myelopathy or radiculopathy, lumbar region; M40.56 Lordosis, unspecified, lumbar region; M48.26 Kissing spine, lumbar region
CPT/HCPCS: 72110

== ENCOUNTER → 2020-12-06 | Outpatient (CLI) | payer MEDICARE, OTHER ==
[2020-12-06 14:05] LABS: Anisocytosis Slight; Basophils # (A) 0.1 k/uL (0-0.2); Basophils % (A) 1 %; Eosinophils # (A) 0.4 k/uL (0-0.7); Eosinophils % (A) 8 %; HCT 35.9 % (39.0-53.0); HGB 11.3 gm/dL (13.0-17.5); Hypochromasia Moderate; Lymphocytes # (A) 1.1 k/uL (1.0-4.8); Lymphocytes % (A) 19 %; MCH 25.7 pg (25.0-35.0); MCHC 31.4 g/dL (31.0-37.0); Mean Platelet Volume 8.6; Monocytes # (A) 0.3 k/uL (0-1.0); Monocytes % (A) 6 %; Neutrophils # (A) 3.7 k/uL (1.3-7.7); Neutrophils % (A) 65 %; Platelet Count 227 k/uL (150-450); RBC 4.38 m/uL (4.30-5.90); RDW 17.7 % (11.5-15.5); WBC 5.7 k/uL (3.8-10.6)
[2020-12-06 14:16] LABS: Potassium 4.3 mmol/L (3.5-5.1)
== END | disposition home or self-care (01) ==
LOC: LABPAT 12:40
PROVIDERS: ATTEND Surgery
DX: Z01.818 Encounter for other preprocedural examination (principal); I74.3 Embolism and thrombosis of arteries of the lower extremities
CPT/HCPCS: 36415; 80051; 82565; 84520; 85025

== ENCOUNTER 2020-12-11 09:19 | Day surgery (SDC) | payer MEDICARE, OTHER ==
[2020-12-06 16:16] VITALS: BMI 28.9
[~2020-12-11 09:19] MED LIST changes: +ALPRAZolam 0.25 MG TAB PO PRN; +ASPIRIN 325 MG TAB PO PRN; -DEXAMETHASONE SOD PHOSPHATE 10 MG/ML 1 ML VIAL IV ONE; +HEPARIN SODIUM,PORCINE 10,000 UNIT in SODIUM CHLORIDE 0.9% 1,000 ML IRRIGATION PRN; +HEPARIN SODIUM,PORCINE 2,500 UNIT in SODIUM CHLORIDE 0.9% 250 ML IRRIGATION PRN; -HYDROmorphone 0.5 MG/0.5 ML SYRINGE IVP PRN; -LIDOCAINE 1% 20 ML VIAL (10MG/ML) FOR IV START INTRADERMA PRN; +LIDOCAINE 1% INJ 10MG/ML (20 ML MDV) ONE; -MIDAZOLAM 2 MG/2 ML VIAL IV PRN; -ONDANSETRON 4 MG/2 ML VIAL IVP ONE; -SCOPOLAMINE 1.5MG/72HR PATCH TRANSDERM ONE; +SODIUM CHLORIDE 0.9% 1,000 ML in EMPTY BAG 1 BAG IV ONE; +VERAPAMIL 2.5 MG/ML 2 ML AMP ONE; +ZOLPIDEM 5 MG TAB PO PRN; -ceFAZolin IN SWFI 2 GM/20 ML SYRINGE IVP ONE
[2020-12-11] MEDS ORDERED: SODIUM CHLORIDE 0.9% 1,000 ML IV ONE (09:27)
[2020-12-11 09:47] VITALS: RESP 16; TEMP 97.9
[2020-12-11] MEDS ORDERED: fentaNYL (PF) 50 MCG/ML 2 ML AMP ONE (09:48)
[2020-12-11] MEDS ORDERED: fentaNYL (PF) 50 MCG/ML 2 ML AMP IV ONE (09:55)
[2020-12-11] MEDS ORDERED: LIDOCAINE 1% INJ 10MG/ML (20 ML MDV) SQ ONE (09:58)
[2020-12-11] MEDS: MIDAZOLAM 2 MG/2 ML VIAL IV ONE ×2 (10:10→10:14)
[2020-12-11] MEDS ORDERED: IOPAMIDOL-250 100ML BTL INTRAARTER ONE ×2 (10:25→10:26)
--- NOTE | 2020-12-11 11:33 | IR ---
EXAMINATION TYPE: IR angio abdominal w runoff DATE OF EXAM: 12/11/2020 COMPARISON: NONE HISTORY: Fluoroscopy time. Fluoroscopy was provided to the referring clinician.
[2020-12-11 14:49] VITALS: BP 121/57; PULSE 70
--- NOTE | 2020-12-15 15:57 | P.OP ---
Date of Procedure: 12/11/20 Description of Procedure: Preoperative diagnosis: Claudication [place] classification 3 Postop diagnosis: 1. 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 Right SFA occlusion with recon above knee popliteal 3. Left SFA stenosis >80% 4. Left SFA in-stent stenosis 5. Right popliteal artery stenosis Procedure: Aortogram with bilateral lower extremity runoffs via left radial artery access under ultrasound guidance Surgeon: Frankie Anesthesia: Moderate sedation times 29 minutes Estimated blood loss: 5 mL Complications: None Condition: Stable Findings: Aorta: Patent without significant stenosis or calcification. Bilateral renal arteries patent without significant atherosclerotic disease. Iliacs: Bilateral common iliac arteries are patent without stenosis. Internal iliac artery bilaterally are patent with mild calcific disease. External iliac arteries are patent with mild stenosis on the left and atherosclerotic disease noted. There is a sharp occlusion noted at the distal aspect of the external iliac on the right. Femorals: Right common femoral artery is occluded with large collateral noted filling the profunda and vessels in the thigh. Superficial femoral artery is also occluded extending down to the mid thigh with some reconstitution at the above-knee popliteal artery. Left femoral is patent as well as the profundus femoris. There is an area of 80% stenosis at the proximal aspect of the previous SFA stent. In-stent stenosis is mild throughout. There is some 60% stenosis of the distal SFA stent into the popliteal artery. Popliteal: Right popliteal artery has dense calcific disease with multiple areas of stenosis. Left popliteal artery is split areas of stenosis with calcification noted. Tibials: Tibioperoneal trunk is patent with atherosclerotic disease throughout. Three-vessel takeoff with occlusion of the anterior tibial artery noted on the right and two-vessel runoff to the ankle PT and peroneal arteries. The left has three-vessel takeoff with posterior tibial artery occlusion with two-vessel runoff to the ankle anterior tibial and peroneal artery. Operative narrative: After written informed consent was obtained the patient all risks benefits competitions were described the patient is brought to the [facility] and laid in a supine position. The area of the left arm and wrist was prepped and draped in the usual sterile fashion. Local anesthesia with moderate sedation was performed with continuous pulse ox monitoring and EKG monitoring. Utilizing ultrasound the left radial artery was visualized and shown to be patent without any significant plaque. Utilizing a multipurpose needle under ultrasound guidance the artery was accessed. Guidewire was placed followed by 5-Norwegian sheath. 035 Glidewire was then placed into the aorta followed by pigtail catheter. Angiogram was then obtained of the aorta. Catheter was then placed at the bifurcation and lower extremity runoffs were obtained. Once completed all guidewires, catheters and sheaths were removed and pressure with a TR band was placed for hemostasis. Patient tolerated procedure well was sent to PACU for recovery
== END 2020-12-11 14:54 | disposition home or self-care (01) ==
LOC: CATHCVL 09:19
PROVIDERS: ATTEND Surgery
DX: I70.212 Atherosclerosis of native arteries of extremities with intermittent claudication, left leg (principal); T82.856A Stenosis of peripheral vascular stent, initial encounter; I10 Essential (primary) hypertension; Z87.891 Personal history of nicotine dependence; Z98.42 Cataract extraction status, left eye; Z98.41 Cataract extraction status, right eye; Z86.73 Personal history of transient ischemic attack (TIA), and cerebral infarction without residual deficits; Z86.718 Personal history of other venous thrombosis and embolism; M19.90 Unspecified osteoarthritis, unspecified site; Z95.5 Presence of coronary angioplasty implant and graft; Z82.49 Family history of ischemic heart disease and other diseases of the circulatory system; Z83.3 Family history of diabetes mellitus; Z98.890 Other specified postprocedural states; Z79.02 Long term (current) use of antithrombotics/antiplatelets; Z79.82 Long term (current) use of aspirin; Z79.899 Other long term (current) drug therapy
CPT/HCPCS: 36200; 75625; 75716; C1769 ×2; J2250; J2001; J3010; Q9966

== ENCOUNTER 2020-12-22 13:01 | Emergency (ER) | payer MEDICARE, OTHER ==
[2020-12-22] MEDS ORDERED: KETOROLAC 15 MG/ML 1 ML VIAL IVP STA (13:34)
[2020-12-22] MEDS ORDERED: HYDROmorphone 0.5 MG/0.5 ML SYRINGE IVP STA ×2 (13:34→14:39)
[2020-12-22] MEDS ORDERED: methylPREDNISolone SOD SUCCI 125 MG/2 ML VIAL IV STA (13:34)
--- NOTE | 2020-12-22 13:44 | ED ---
General Adult HPI - General Chief complaint: Extremity Problem,Nontraumatic Stated complaint: leg pain Time Seen by Provider: 12/22/20 13:05 Source: patient, RN notes reviewed, old records reviewed Mode of arrival: wheelchair Limitations: no limitations - History of Present Illness Initial comments: This is an 80-year-old male who presents to the emergency department complaining of right lower back pain and pain into the posterior aspect of his thigh. Patient states movement seems to make it worse every once a while he can get into a position where he feels comfortable. Patient denies any numbness. Patient denies any difficulty urinating or having urinary incontinence. Patient denies any perineum numbness. Patient denies any recent injury. Patient states the pain runs from the back down to the posterior aspect of his knee. He has no distal leg pain or foot pain - Related Data Home Medications Medication Instructions Recorded Confirmed Dorzolamide/Timolol/Pf [Cosopt Pf 1 drop BOTH EYES BID 03/18/17 12/11/20 2%/5% Ophth Droperette] Gabapentin [Neurontin] 300 mg PO TID 11/18/17 12/11/20 Travoprost [Travatan Z 0.004%] 1 drop BOTH EYES DAILY 12/12/18 12/11/20 Ergocalciferol (Vitamin D2) 1,250 mcg PO Q30D 12/06/20 12/06/20 [Vitamin D2 (50,000 Iu)] Ferrous Sulfate [Feosol] 325 mg PO DAILY 12/06/20 12/11/20 Simvastatin [Zocor] 40 mg PO HS 12/06/20 12/11/20 hydroCHLOROthiazide [Hydrodiuril] 12.5 mg PO DAILY 12/06/20 12/11/20 traMADol HCL [Ultram] 50 mg PO Q8H PRN 12/06/20 12/11/20 Previous Rx's Medication Instructions Recorded Aspirin EC [Ecotrin Low Dose] 81 mg PO PC-SUPPER #0 11/11/19 Clopidogrel Bisulfate [Plavix] 75 mg PO QAM #0 11/11/19 predniSONE [Deltasone] 40 mg PO DAILY #8 tab 12/22/20 Allergies Allergy/AdvReac Type Severity Reaction Status Date / Time rivaroxaban [From Xarelto] Allergy "internal Verified 12/22/20 13:15 bleeding" Review of Systems ROS Statement: Those systems with pertinent positive or pertinent negative responses have been documented in the HPI. ROS Other: All systems not noted in ROS Statement are negative. Past Medical History Past Medical History: CVA/TIA, Deep Vein Thrombosis (DVT), Eye Disorder, Hypertension, Osteoarthritis (OA), Vascular Disorder Additional Past Medical History / Comment(s): "TIA long time ago", PVD, RIGHT HIP LEG pain, GLAUCOMA, DVT to right leg History of Any Multi-Drug Resistant Organisms: None Reported Past Surgical History: Heart Catheterization, Heart Catheterization With Stent Additional Past Surgical History / Comment(s): 3 stents in left leg, angioplasty nicole legs, aortogram, nicole cataracts, FEMPOP BYPASS LT LEG-failed Past Anesthesia/Blood Transfusion Reactions: No Reported Reaction Date of Last Stent Placement:: 2016 Past Psychological History: Depression Smoking Status: Former smoker Past Alcohol Use History: Occasional Past Drug Use History: None Reported - Past Family History Mother Family Medical History: Diabetes Mellitus Father Family Medical History: Coronary Artery Disease (CAD), Rheumatoid Arthritis (RA) Additional Family Medical History / Comment(s): ARTERIAL SCLEROSIS General Exam - General Exam Comments Initial Comments: GENERAL: Patient is well-developed and well-nourished. Patient is nontoxic and well- hydrated and is in moderate distress. ENT: Neck is soft and supple. No significant lymphadenopathy is noted. Oropharynx is clear. Moist mucous membranes. Neck has full range of motion without eliciting any pain. EYES: The sclera were anicteric and conjunctiva were pink and moist. Extraocular movements were intact and pupils were equal round and reactive to light. Eyelids were unremarkable. PULMONARY: Unlabored respirations. Good breath sounds bilaterally. No audible rales rhonchi or wheezing was noted. CARDIOVASCULAR: There is a regular rate and rhythm without any murmurs gallops or rubs. ABDOMEN: Soft and nontender with normal bowel sounds. SKIN: Skin is clear with no lesions or rashes and otherwise unremarkable. NEUROLOGIC: Patient is alert and oriented x3. Cranial nerves II through XII are grossly intact. Motor and sensory are also intact. Normal speech, volume and content. Symmetrical smile. MUSCULOSKELETAL: Normal extremities with adequate strength and full range of motion. No lower extremity swelling or edema. No calf tenderness. Patient has good cap refill and the leg is very warm. Patient also had a negative straight leg test however with internal rotation the pain was reproduced. LYMPHATICS: No significant lymphadenopathy is noted PSYCHIATRIC: Normal psychiatric evaluation. Limitations: no limitations Course Vital Signs 12/22/20 12/22/20 13:11 14:54 Temperature 97.8 F 98.1 F Pulse Rate 87 70 Respiratory 16 18 Rate Blood Pressure 197/73 173/65 O2 Sat by Pulse 97 97 Oximetry Medical Decision Making - Medical Decision Making Patient's lumbosacral spine x-ray showed no acute normalities. Patient received steroids Dilaudid and Toradol in the emergency department and felt considerably better. Disposition Clinical Impression: Sciatica Disposition: HOME SELF-CARE Condition: Good Instructions (If sedation given, give patient instructions): Sciatica (ED) Prescriptions: predniSONE [Deltasone] 40 mg PO DAILY #8 tab Is patient prescribed a controlled substance at d/c from ED?: No Referrals: Blake Barber MD [Primary Care Provider] - 1-2 days Time of Disposition: 14:43
--- NOTE | 2020-12-22 14:18 | XR ---
EXAMINATION TYPE: XR lumbosacral spine min 4V DATE OF EXAM: 12/22/2020 COMPARISON: 11/15/2020 HISTORY: Back pain TECHNIQUE: 5 views FINDINGS: Lumbar vertebra have normal alignment. There is slight narrowing of the lumbar disc spaces with spurring of the endplates. Abdominal aorta is atheromatous. There is no compression fracture. Po sterior elements are intact. Sacroiliac joints are intact. IMPRESSION: Mild multilevel spondylotic changes. No fracture seen. No change compared to old exam.
[2020-12-22 14:55] VITALS: BP 173/65; PULSE 70; RESP 18; TEMP 98.1
== END 2020-12-22 14:55 | disposition home or self-care (01) ==
LOC: EC 13:01
DX: M54.30 Sciatica, unspecified side (principal); F32.9 Major depressive disorder, single episode, unspecified; I10 Essential (primary) hypertension; M19.90 Unspecified osteoarthritis, unspecified site; Z95.5 Presence of coronary angioplasty implant and graft; Z87.891 Personal history of nicotine dependence; Z86.73 Personal history of transient ischemic attack (TIA), and cerebral infarction without residual deficits; Z98.42 Cataract extraction status, left eye; Z98.41 Cataract extraction status, right eye; Z88.8 Allergy status to other drugs, medicaments and biological substances
CPT/HCPCS: 72110; 96374; 96375; 96376; 99284

== ENCOUNTER → 2021-01-11 | Outpatient (CLI) | payer MEDICARE, OTHER ==
--- NOTE | 2021-01-11 13:16 | CT ---
EXAMINATION TYPE: CT lumbar spine wo con DATE OF EXAM: 01/11/2021 1:02 PM COMPARISON: Lumbar spine x-ray December 22, 2020 HISTORY: Back pain CT DLP: 980 mGycm Automated exposure control for dose reduction was used. Unenhanced CT of the lumbar spine was performed. Bone and soft tissue window settings are submitted as well as coronal and sagittal reconstructions. There are 5 lumbar-type vertebra. Satisfactory alignment is seen. Vertebral body heights are maintain ed. There is [id number] disc space narrowing with vacuum disc phenomena along with mild to mode rate anterior and lateral spurring at L3-L4 level. [id number] disc space narrowing and vacuum d isc phenomenon with posterior spur disc complex L5-S1 level. Prominent anterior spurring near thoraco lumbar junction. Axial images shows T12-L1 and L1-L2 levels to be within normal limits. Axial images at L2-L3 level show mild broad disc bulge and facet arthropathy bilaterally. Mild efface ment of the anterior thecal sac. Axial images at the L3-L4 level show moderate to advanced broad disc bulge along with mild facet arth ropathy but more prominent severe ligamentum flavum hypertrophy. There is significant spinal canal ef facement of stenosis seen on axial image 54 reference. There is moderate left greater than right bila teral neural foraminal narrowing. Axial images at L4-L5 level show moderate to advanced facet degenerative changes and ligamentum flavu m hypertrophy effacing posterolateral thecal sac. There is bubq-aw-[id number] broad disc bulge mildly e ffacing the anterior thecal sac. There is mild bilateral anterior inferior neural foraminal narrowing . Axial images at L5-S1 level show large broad-based central disc protrusion but there is increased epi dural fat at this level. There is moderate to advanced facet arthropathy bilaterally. There is modera te to severe bilateral neural foraminal narrowing. There is moderate to severe calcified plaque of the aorta extending into branch vessels. There is cor tical thinning in both kidneys. Paraspinal muscle bulk is preserved. IMPRESSION: Multilevel degenerative changes greatest at L3-L4 and L5-S1 levels as detailed above.
== END | disposition home or self-care (01) ==
LOC: RADCTMAIN 12:32
PROVIDERS: ATTEND Internal Medicine
DX: M47.816 Spondylosis without myelopathy or radiculopathy, lumbar region (principal); M47.817 Spondylosis without myelopathy or radiculopathy, lumbosacral region
CPT/HCPCS: 72131

== ENCOUNTER → 2021-03-18 | Outpatient (CLI) | payer MEDICARE, OTHER ==
[2021-03-18 12:30] VITALS: BP 161/72; PULSE 72; RESP 18; TEMP 98
--- NOTE | 2021-03-18 12:53 | P.PAINCN ---
History of Present Illness - Reason for Consult Consult date: 03/18/21 - History of Present Illness This is a 20 years old male with a chronic history of low back pain with radiation to the right lower extremity associated with some numbness and tingling sensation, patient denies any initiating event but he reported that the symptoms increased over time and is interfering with her quality of life, it is constant and increases with any activity, he feels some weakness in the lower extremity but he is able to ambulate on his own, he denies any change in the bowel movement or urination he denies any fever or night sweats, he tried multiple pain medication without any significant relief he tried massage therapy without any significant benefit Past Medical History Past Medical History: Coronary Artery Disease (CAD), Eye Disorder, Hypertension, Osteoarthritis (OA), Vascular Disorder Additional Past Medical History / Comment(s): states having sciatica, PVD, GLAUCOMA, denies DVT History of Any Multi-Drug Resistant Organisms: None Reported Past Surgical History: Heart Catheterization, Heart Catheterization With Stent Additional Past Surgical History / Comment(s): 3 stents in left leg, angioplasty nicole legs, aortogram, nicole cataracts, FEMPOP BYPASS LT LEG-failed Past Anesthesia/Blood Transfusion Reactions: No Reported Reaction Date of Last Stent Placement:: 2016 Smoking Status: Former smoker - Past Family History Mother Family Medical History: Diabetes Mellitus Father Family Medical History: Coronary Artery Disease (CAD), Rheumatoid Arthritis (RA) Additional Family Medical History / Comment(s): ARTERIAL SCLEROSIS Medications and Allergies Home Medications Medication Instructions Recorded Confirmed Type Dorzolamide/Timolol/Pf [Cosopt Pf 1 drop BOTH EYES BID 03/18/17 03/18/21 History 2%/0.5% Ophth Droperette] Gabapentin [Neurontin] 300 mg PO TID 11/18/17 03/18/21 History Travoprost [Travatan Z 0.004%] 1 drop BOTH EYES DAILY 12/12/18 03/18/21 History Aspirin EC [Ecotrin Low Dose] 81 mg PO PC-SUPPER #0 11/11/19 03/18/21 Rx Clopidogrel Bisulfate [Plavix] 75 mg PO QAM #0 11/11/19 03/18/21 Rx Ergocalciferol (Vitamin D2) 1,250 mcg PO Q30D 12/06/20 03/18/21 History [Vitamin D2 (50,000 Iu)] Ferrous Sulfate [Feosol] 325 mg PO DAILY 12/06/20 03/18/21 History Simvastatin [Zocor] 40 mg PO HS 12/06/20 03/18/21 History hydroCHLOROthiazide [Hydrodiuril] 12.5 mg PO DAILY 12/06/20 03/18/21 History traMADol HCL [Ultram] 50 mg PO Q8H PRN 12/06/20 03/18/21 History HYDROcodone/APAP 10-325MG [Ophir 1 tab PO DIRECTED PRN 03/14/21 03/18/21 History 10-325] Allergies Allergy/AdvReac Type Severity Reaction Status Date / Time rivaroxaban [From Xarelto] Allergy "internal Verified 03/14/21 13:44 bleeding" Physical Exam Vitals: Vital Signs Temp Pulse Resp BP Pulse Ox 03/18/21 12:24 98.0 F 72 18 161/72 98 Physical Examinations : -Constitutiona : Cooperative , not in acute distress . -HEENT : nech : supple , no Lymphadenopathy , normal thyroid size . : eyes : no ptosis , no icterus, no photophobia . - neurologic : Cranial nerve II to XII intact , no focal neurological deffecit . -psychatric : alert , oriented X 3 , appropriate affect , intact judgment and insight . -Lymphatic : no Lymphadenopathy . - musculoskeltal : Lumber spine moter stegnth lower extremities ,thigh and legs 5/5 Right side , 5/5 Left side deep tendon reflexes : normal Knee Jerk , normal ankle Jerk lumber facet Loading Test =positive Right , positive Left Range of motion of the lumbar spine Flexion 30 degrees, extension 10 degrees strait leg raising test = positive at 30 degree Fabere test= positive Right , and positive LT . tenderness over the Sacroiliac joint on the Right , and Left sides Gaenslen test= positive right ,and positive left . Results Comments: Multilevel bulging disc disease at L2-3 and L3 4 L4 5 and L5-S1 and multilevel foraminal stenosis and multilevel lumbar facet arthropathy Assessment and Plan Plan: Assessment and plan=1-lumbar radiculopathy 2-lumber degenerative disc disease. 3-lumbar spondylosis with lumbar facet arthropathy. 4-lumber foraminal stenosis. he will be good candidate to have right-sided transforaminal epidural steroid injection at L4 5 and L5-S1 He should need to hold Plavix for 1 week before the procedure Time with Patient: Greater than 30 PQRS Measure Charge Sheet Measure #130: Documentation of Current Meds in Medical Chart: Patient's medications documented in chart Measure #226: Tobacco Use: Screen & Cessation Intervention: Pt not a tobacco user Measure #111: Pneumonia Vaccination: Pneumococcal vaccine NOT administered or previously given Measure #47: Advance Care Plan: Advance care planning discussed & documented, pt chose/unable to give Measure #412: Opioid Treatment Agreement: No documentation of signed opioid treatment agreement Measure #408: Opioid Therapy Follow-up Evaluation: Patient had NO f/u eval minimum every 3 months during opioid therapy Measure #317: Preventitive Care & Scrn High Bld Press & F/U: Pre-hypertensive or hypertensive BP documented, pt will f/u with PCP Measure #128: Body Mass Index (BMI) Screening & Follow-up: BMI documented ABOVE normal parameters - f/u documented Measure #131: Pain Assessment & Follow-up: Pain positive & plan documented, Follow-up scheduled Measure #431: Unhealthy Alcohol Use Preventative Care & Scrn: Patient not identified as an unhealthy alcohol user PQRS Narrative: Smoking Status Former smoker Blood Pressure 161/72 Pain Intensity [Back] 6 Scale Used Numeric (1 - 10) Hx Alcohol Use (MH) Yes: Rare Home Medications: Ambulatory Orders Dorzolamide/Timolol/Pf [Cosopt Pf 2%/0.5% Ophth Droperette] 1 drop BOTH EYES BID 03/18/17 Gabapentin [Neurontin] 300 mg PO TID 11/18/17 Travoprost [Travatan Z 0.004%] 1 drop BOTH EYES DAILY 12/12/18 Aspirin EC [Ecotrin Low Dose] 81 mg PO PC-SUPPER #0 11/11/19 Clopidogrel Bisulfate [Plavix] 75 mg PO QAM #0 11/11/19 Ergocalciferol (Vitamin D2) [Vitamin D2 (50,000 Iu)] 1,250 mcg PO Q30D 12/06/20 Ferrous Sulfate [Feosol] 325 mg PO DAILY 12/06/20 Simvastatin [Zocor] 40 mg PO HS 12/06/20 hydroCHLOROthiazide [Hydrodiuril] 12.5 mg PO DAILY 12/06/20 traMADol HCL [Ultram] 50 mg PO Q8H PRN 12/06/20 HYDROcodone/APAP 10-325MG [Ophir 10-325] 1 tab PO DIRECTED PRN 03/14/21
== END ==
LOC: PNWHC3 12:15
PROVIDERS: ATTEND Specialist
DX: M51.16 Intervertebral disc disorders with radiculopathy, lumbar region (principal); M48.061 Spinal stenosis, lumbar region without neurogenic claudication; M47.26 Other spondylosis with radiculopathy, lumbar region; Z87.891 Personal history of nicotine dependence; I10 Essential (primary) hypertension; M19.90 Unspecified osteoarthritis, unspecified site; I25.10 Atherosclerotic heart disease of native coronary artery without angina pectoris; Z88.8 Allergy status to other drugs, medicaments and biological substances; Z79.82 Long term (current) use of aspirin
CPT/HCPCS: 99211

== ENCOUNTER 2021-04-04 11:06 | Day surgery (SDC) | payer MEDICARE, OTHER ==
[2021-04-03 10:42] VITALS: BMI 28.3
[~2021-04-04 11:06] MED LIST changes: -ALPRAZolam 0.25 MG TAB PO PRN; -ASPIRIN 325 MG TAB PO PRN; -HEPARIN SODIUM,PORCINE 10,000 UNIT in SODIUM CHLORIDE 0.9% 1,000 ML IRRIGATION PRN; -HEPARIN SODIUM,PORCINE 2,500 UNIT in SODIUM CHLORIDE 0.9% 250 ML IRRIGATION PRN; +LACTATED RINGERS 1,000 ML IV SCH; -LIDOCAINE 1% INJ 10MG/ML (20 ML MDV) ONE; -SODIUM CHLORIDE 0.9% 1,000 ML in EMPTY BAG 1 BAG IV ONE; -VERAPAMIL 2.5 MG/ML 2 ML AMP ONE; -ZOLPIDEM 5 MG TAB PO PRN
[2021-04-04 11:27] VITALS: RESP 16; TEMP 97.3
[2021-04-04] MEDS ORDERED: IOPAMIDOL M200 10 ML VIAL ONE (11:55)
[2021-04-04] MEDS ORDERED: methylPREDNISolone ACETATE 40 MG/ML 1 ML VIAL ONE (11:55)
--- NOTE | 2021-04-04 12:12 | P.PCN ---
Date of Procedure: 04/04/21 Procedure(s) Performed: PREOPERATIVE DIAGNOSIS:1- Lumbar radiculopathy . 2-lumbar degenerative disc disease. 3-Lumber spondylosis with lumbar facet arthropathy POSTOPERATIVE DIAGNOSIS: Same as preoperative diagnoses. PROCEDURE 1. Transforaminal epidural steroid injection under fluoroscopic guidance at right L4-5 level ,and L5-S1 (Fluoroscopy images stored on file in the radiology Department ) 2. Lumbar epidurogram . ANESTHESIA: Local with 1% lidocaine 4 ml only. EBL: Minimal PROCEDURE INDICATION: The patient with low back pain and radiculopathy symptoms unresponsive to conservative treatment. PROCEDURE DESCRIPTION / TECHNIQUE: The patient was seen and identified in the preoperative area. Risks, benefits, complications, and alternatives were discussed with the patient. The patient agreed to proceed with the procedure and signed the consent. IV was started, and vital signs were stable. Patient was taken to the OR and time out was completed. The patient was placed in the prone position on procedure table and a pillow was placed under the abdomen to reduce lumbar lordosis. The lumbosacral area was prepped and draped in the usual sterile fashion. Critical pause was taken. Vital signs were closely monitored during the procedure. Using oblique fluoroscopy, the chin of the ``Jaswant dog at Right L4-5 level was identified, and the skin and deeper tissues just below was localized with 1% lidocaine. Subsequently, a 22-gauge 3.5-inch spinal needle was advanced under a tunneled view fluoroscopic guidance just underneath the chin of the ``Jaswant dog at the right L4-5 Under lateral fluoroscopy, the needle was then advanced to the posterior border of the interforaminal space. After negative aspiration of CSF and blood and with no paresthesias, 1 mL Isovue 200 contrast dye was injected excellent epidurogram and outlining of the nerve root Subsequently, 3 mL of block solution containing 20 mg Depo-Medrol and 2 mL of 0.9% normal saline PF was injected. Needle was removed and the same procedure was repeated at the right L5-S1 level . At the end of the procedure, skin was cleansed, and bandages were applied. COMPLICATIONS:none DISPOSITION / PLANS: The patient was placed in a supine position and transferred to the recovery area in a stable condition for observation. There was no evidence of lower extremity motor or sensory deficit after the procedure. Patient was discharged from the recovery room after meeting discharge criteria. Home discharge instructions were given to the patient by the staff. The patient was reexamined prior to discharge.
--- NOTE | 2021-04-04 12:23 | FL ---
Fluoroscopy INDICATION: Pain FINDINGS: Fluoroscopy time: 4 seconds. Images obtained: 2. IMPRESSIONS: 1. Documentation of fluoroscopy.
[2021-04-04 12:31] VITALS: BP 146/51; PULSE 57
== END 2021-04-04 12:43 | disposition home or self-care (01) ==
LOC: ORPAIN 11:06
PROVIDERS: ATTEND Specialist
DX: M47.26 Other spondylosis with radiculopathy, lumbar region (principal); M51.16 Intervertebral disc disorders with radiculopathy, lumbar region; I25.10 Atherosclerotic heart disease of native coronary artery without angina pectoris; Z79.02 Long term (current) use of antithrombotics/antiplatelets; Z88.8 Allergy status to other drugs, medicaments and biological substances
CPT/HCPCS: 64483; 64484; J1030; Q9966

== ENCOUNTER 2021-04-18 13:03 | Day surgery (SDC) | payer MEDICARE, OTHER ==
[2021-04-17 10:02] VITALS: BMI 28.3
[2021-04-18 13:18] VITALS: TEMP 97.7
[2021-04-18] MEDS ORDERED: DEXAMETHASONE SOD PHOSPHATE 10 MG/ML 1 ML VIAL ONE (13:39)
[2021-04-18] MEDS ORDERED: LIDOCAINE 1% INJ 10MG/ML (20 ML MDV) ONE (13:39)
[2021-04-18] MEDS ORDERED: IOPAMIDOL M200 10 ML VIAL ONE (13:39)
--- NOTE | 2021-04-18 13:54 | P.PCN ---
Date of Procedure: 04/18/21 Surgeon: Steffen De Los Santos Pathology: none sent Condition: stable Disposition: PACU Description of Procedure: PREOPERATIVE DIAGNOSIS:1- Lumbar radiculopathy . 2-lumbar degenerative disc disease. 3-Lumber spondylosis with lumbar facet arthropathy POSTOPERATIVE DIAGNOSIS: Same as preoperative diagnoses. PROCEDURE 1. Transforaminal epidural steroid injection under fluoroscopic guidance at right L4-5 level ,and L5-S1 (Fluoroscopy images stored on file in the radiology Department ) 2. Lumbar epidurogram . ANESTHESIA: Local only with lidocaine 1% . EBL: Minimal PROCEDURE INDICATION: The patient with low back pain and radiculopathy symptoms unresponsive to conservative treatment. PROCEDURE DESCRIPTION / TECHNIQUE: The patient was seen and identified in the preoperative area. Risks, benefits, complications, and alternatives were discussed with the patient. The patient agreed to proceed with the procedure and signed the consent. IV was started, and vital signs were stable. Patient was taken to the OR and time out was completed. The patient was placed in the prone position on procedure table and a pillow was placed under the abdomen to reduce lumbar lordosis. The lumbosacral area was prepped and draped in the usual sterile fashion. Critical pause was taken. Vital signs were closely monitored during the procedure. Using oblique fluoroscopy, the chin of the `GregorioJaswant dog at Right L4-5 level was identified, and the skin and deeper tissues just below was localized with 1% lidocaine. Subsequently, a 22-gauge 3.5-inch spinal needle was advanced under a tunneled view fluoroscopic guidance just underneath the chin of the `Kelliy dog at the right L4-5 Under lateral fluoroscopy, the needle was then advanced to the posterior border of the interforaminal space. After negative aspiration of CSF and blood and with no paresthesias, 1 mL Isovue 200 contrast dye was injected excellent epidurogram and outlining of the nerve root Subsequently, 2 mL of block solution containing 5 mg Decadron and 1.5 mL of Lidocaine 1% PF was injected. Needle was removed and the procedure was repeated in the same manner at the right L5-S1 level . At the end of the procedure, skin was cleansed, and bandages were applied. COMPLICATIONS:none DISPOSITION / PLANS: The patient was placed in a supine position and transferred to the recovery area in a stable condition for observation. There was no evidence of lower extremity motor or sensory deficit after the procedure. Patient was discharged from the recovery room after meeting discharge criteria. Home discharge instructions were given to the patient by the staff. The patient was reexamined prior to discharge.
[2021-04-18 14:05] VITALS: RESP 20
[2021-04-18 14:22] VITALS: BP 172/79; PULSE 70
--- NOTE | 2021-04-18 16:24 | FL ---
Fluoroscopy HISTORY: Pain 23 seconds fluoroscopy time supplied to the referring clinician. 2 intraoperative C-arm images docum ent the procedure. See dictated report from anesthesia.
== END 2021-04-18 14:24 | disposition home or self-care (01) ==
LOC: ORPAIN 13:03
PROVIDERS: ATTEND Anesthesiology
DX: M51.16 Intervertebral disc disorders with radiculopathy, lumbar region (principal); M47.26 Other spondylosis with radiculopathy, lumbar region; I25.10 Atherosclerotic heart disease of native coronary artery without angina pectoris; I73.9 Peripheral vascular disease, unspecified
CPT/HCPCS: 64483; 64484; J1100; J2001; Q9966

== ENCOUNTER → 2021-06-14 | Outpatient (CLI) | payer MEDICARE, OTHER ==
--- NOTE | 2021-06-15 00:07 | US ---
EXAMINATION TYPE: US thyroid st tissue head/neck DATE OF EXAM: 06/14/2021 COMPARISON: NONE CLINICAL HISTORY: E05.90 Hyperthyroidism R94.6 Abnormal thyroid labs. GLAND SIZE: Right Lobe: 3.2 x 1.5 x 1.0 cm Overall Parenchyma: Heterogeneous. Left Lobe: 3.4 x 1.3 x 1.1 cm Overall Parenchyma: heterogeneous. No nodules seen. Isthmus Thickness: 0.5 cm NODULES RIGHT: # of nodules measured on right: 1 1. 0.5 X 1.0 x 1.0 cm, lower mid, solid or almost completely solid, hypoechoic nodule, which is wid er than tall, with lobulated or irregular margins, without echogenic foci. Bilateral neck scanned, no evidence of lymphadenopathy. 1.5 x 0.2 cm measuring fluid in the subcutaneous tissue anterior to the thyroid gland right lobe. IMPRESSION: 1. RIGHT THYROID LOBE NODULE MEASURING 1 X 1 X 0.5 CENTIMETER WITH SUSPICIOUS FINDINGS. 2. NORMAL-APPEARING LEFT THYROID LOBE, MILDLY ENLARGED ISTHMUS. 3. TRACE NONSPECIFIC SUBCUTANEOUS TISSUE FLUID ANTERIOR TO THE RIGHT THYROID LOBE. 2017 ACR TI-RADS LEVEL: TR 4. ACCORDING TO ACR TI-RADS, FOLLOW-UP RECOMMENDED IF NODULE SIZE MORE THAN 1 CM, FINE-NEEDLE ASPI RATION RECOMMENDED IF MORE THAN 1.5 CM. CONSIDER SHORT-TERM 6-12 MONTHS FOLLOW-UP OF THYROID NODULE. *HIGHEST TI-RADS LEVEL NODULE REPORTED
== END | disposition home or self-care (01) ==
LOC: RADUSWWP 16:03
PROVIDERS: ATTEND Internal Medicine
DX: E04.1 Nontoxic single thyroid nodule (principal)
CPT/HCPCS: 76536

== ENCOUNTER → 2022-09-22 | Outpatient (CLI) | payer MEDICARE, OTHER ==
--- NOTE | 2022-09-22 09:51 | CT ---
EXAMINATION TYPE: CT brain wo con DATE OF EXAM: 09/22/2022 COMPARISON: 07/14/2012 HISTORY: double vision CT DLP: 978.2 mGycm Automated exposure control for dose reduction was used. FINDINGS: There is cerebral cortical atrophy. There is no mass effect nor midline shift. There is no sign of in tracranial hemorrhage. The calvarium is intact. Orbits are symmetric. Skull base is intact. Mild righ t mastoiditis. Calvarium is intact. Basal ganglia calcifications. IMPRESSION: 1. Moderate degenerative change no evidence of acute hemorrhage or mass effect. Nonspecific white mat ter changes most typical remote microvascular ischemia. 2. Mild right mastoiditis
== END | disposition home or self-care (01) ==
LOC: RADCTMAIN 09:18
PROVIDERS: ATTEND Ophthalmology
DX: I67.82 Cerebral ischemia (principal); G31.9 Degenerative disease of nervous system, unspecified; H70.91 Unspecified mastoiditis, right ear; H53.2 Diplopia
CPT/HCPCS: 70450; 85652; 86140

== ENCOUNTER 2023-04-02 15:49 | Emergency (ER) | payer MEDICARE, OTHER ==
[2023-04-02] MEDS ORDERED: ONDANSETRON 4 MG/2 ML VIAL IVP STA (16:08)
[2023-04-02] MEDS ORDERED: FAMOTIDINE 20 MG/2 ML VIAL IV STA (16:08)
[2023-04-02] MEDS ORDERED: SODIUM CHLORIDE 0.9% 1,000 ML IV STA (16:08)
--- NOTE | 2023-04-02 16:13 | ED ---
Nausea/Vomiting/Diarrhea HPI - General Chief complaint: Nausea/Vomiting/Diarrhea Stated complaint: diarrhea Time Seen by Provider: 04/02/23 15:59 Source: patient, EMS, RN notes reviewed Mode of arrival: ambulatory Limitations: no limitations - History of Present Illness Initial comments: This is an 82-year-old male who presents to the emergency department for nausea, vomiting, diarrhea. States that the symptoms started 2-3 days ago. Unsure how many times he is having diarrhea each day, but states that he is not going more than once each hour. Describes this as watery. Denies any recent antibiotic use. He does have associated nausea and vomiting, however he has been dry heaving at this point since he has not had anything to eat. Denies any fevers. He has mild generalized abdominal cramping from all of the vomiting, but otherwise does not have any abdominal pain. He did take Pepto-Bismol last night and 2-3 Imodium prior to arrival, however he does not believe that this has had time to work as he has had diarrhea since. Denies any fevers, chills, sore throat, cough, dyspnea, chest pain, palpitations, back pain, or headaches. MD complaint: nausea, vomiting, diarrhea Onset/Timin -: days(s) - Related Data Home Medications Medication Instructions Recorded Confirmed Dorzolamide/Timolol/Pf [Cosopt Pf 1 drop BOTH EYES BID 03/18/17 03/06/23 2%/0.5% Ophth Droperette] Gabapentin [Neurontin] 300 mg PO TID 11/18/17 03/06/23 Travoprost [Travatan Z 0.004%] 1 drop BOTH EYES DAILY 12/12/18 03/06/23 Simvastatin [Zocor] 40 mg PO HS 12/06/20 03/06/23 hydroCHLOROthiazide [Hydrodiuril] 12.5 mg PO DAILY 12/06/20 03/06/23 HYDROcodone/APAP 10-325MG [[place] 1 tab PO DIRECTED PRN 03/14/21 03/04/23 10-325] Previous Rx's Medication Instructions Recorded Aspirin EC [Ecotrin Low Dose] 81 mg PO PC-SUPPER #0 11/11/19 Clopidogrel Bisulfate [Plavix] 75 mg PO QAM #0 11/11/19 Ondansetron Odt [Zofran Odt] 4 mg PO Q8HR PRN #10 tab 04/02/23 Allergies Allergy/AdvReac Type Severity Reaction Status Date / Time rivaroxaban [From Xarelto] Allergy "internal Verified 04/02/23 16:01 bleeding" Review of Systems ROS Statement: Those systems with pertinent positive or pertinent negative responses have been documented in the HPI. ROS Other: All systems not noted in ROS Statement are negative. Past Medical History Past Medical History: Coronary Artery Disease (CAD), Eye Disorder, Hyperlipidemia, Hypertension, Osteoarthritis (OA), Vascular Disorder Additional Past Medical History / Comment(s): states having sciatica, PVD, GLAUCOMA, denies DVT,has had double vision a few times but doesn't think they called it a stroke or tia History of Any Multi-Drug Resistant Organisms: None Reported Past Surgical History: Heart Catheterization, Heart Catheterization With Stent Additional Past Surgical History / Comment(s): 3 stents in left leg, angioplasty nicole legs, aortogram, nicole cataracts, FEMPOP BYPASS LT LEG-failed cyst removed from back , cyst from chest both at dermatologists office Past Anesthesia/Blood Transfusion Reactions: No Reported Reaction Date of Last Stent Placement:: 2016 Past Psychological History: No Psychological Hx Reported Smoking Status: Former smoker Past Alcohol Use History: None Reported Past Drug Use History: None Reported - Past Family History Mother Family Medical History: Diabetes Mellitus Father Family Medical History: Coronary Artery Disease (CAD), Rheumatoid Arthritis (RA) Additional Family Medical History / Comment(s): ARTERIAL SCLEROSIS General Exam Limitations: no limitations General appearance: alert, in no apparent distress Head exam: Present: atraumatic, normocephalic, normal inspection Respiratory exam: Present: normal lung sounds bilaterally. Absent: respiratory distress, wheezes, rales, rhonchi, stridor Cardiovascular Exam: Present: regular rate, normal rhythm, normal heart sounds. Absent: systolic murmur, diastolic murmur, rubs, gallop, clicks GI/Abdominal exam: Present: soft, normal bowel sounds. Absent: distended, t enderness, guarding, rebound, rigid Neurological exam: Present: alert, oriented X3, CN II-XII intact Psychiatric exam: Present: normal affect, normal mood Skin exam: Present: warm, dry, intact, normal color. Absent: rash Course Vital Signs 04/02/23 04/02/23 04/02/23 15:54 16:25 17:00 Temperature 97.0 F L Pulse Rate 64 64 62 Respiratory 18 18 18 Rate Blood Pressure 141/54 141/54 135/51 O2 Sat by Pulse 99 100 99 Oximetry 04/02/23 04/02/23 04/02/23 18:00 18:50 20:40 Temperature 97.9 F Pulse Rate 62 75 78 Respiratory 18 18 16 Rate Blood Pressure 133/51 138/66 O2 Sat by Pulse 98 100 98 Oximetry Medical Decision Making - Medical Decision Making This is a 82-year-old male who presents to the emergency department for nausea, vomiting, and diarrhea. Was pt. sent in by a medical professional or institution? @ -No Did you speak to anyone other than the patient for history? @ -No Did you review nursing and triage notes? @ -Yes, and I agree, it is accurate with regards to the patient's symptoms. Were old charts reviewed? @ -No Differential Diagnosis? @ -Differential Nausea and Vomiting: Gastroenteritis, cholecystitis, appendicitis, pancreatitis, migraine, benign positional vertigo, food borne illness, pyelonephritis, irritable bowel syndrome, influenza, Covid, GERD, incarcerated hernia, intestinal obstruction, this is not meant to be an all-inclusive list. EKG interpreted by me (3pts min.)? @ -EKG interpreted by me demonstrating the following: Sinus rhythm. Ventricular rate 62 bpm, ND interval 226 ms, QRS duration 90 ms, QTC 434 ms. X-rays interpreted by me (1pt min.)? @ -Not obtained CT interpreted by me (1pt min.)? @ -Not obtained U/S interpreted by me (1pt. min.)? @ -Not obtained What testing was considered but not performed? (CT, X-rays, U/S, labs)? Why? @ -None What meds were considered but not given? Why? @ -None Did you discuss the management of the patient with other professionals? @ -No Did you reconcile home meds? @ -No Was smoking cessation discussed for >3mins.? @ -No Was critical care preformed (if so, how long)? @ -No Were there social determinants of health that impacted care today? How? (Homelessness, low income, unemployed, alcoholism, drug addiction, transportation, low edu. Level, literacy, decrease access to med. care, detention, rehab)? @ -No Was there de-escalation of care discussed even if they declined? (Discuss DNR or withdrawal of care, Hospice)? @ -No What co-morbidities impacted this encounter? (DM, HTN, Smoking, COPD, CAD, Cancer, CVA, Hep., AIDS, mental health diagnosis, sleep apnea, morbid obesity)? @ -CAD, HTN, HLD Was patient admitted / discharged? @ -Discharged. Lab work obtained and found to be nonactionable. He was given IV fluids, Zofran, and Pepcid. Patient overall felt significantly improved. He was able to drink water without difficulty. Advised that this is likely related to a gastroenteritis. Prescription for Zofran provided with dosing instructions reviewed. Otherwise advised to continue with the Imodium as needed for management of the diarrhea, to remain well hydrated, and follow up with his PCP for reevaluation of symptoms. Undiagnosed new problem with uncertain prognosis? @ -None Drug Therapy requiring intensive monitoring for toxicity (Heparin, Nitro, Insulin, Cardizem)? @ -None Were any procedures done? @ -None Diagnosis/symptom? @ -Gastroenteritis Acute, or Chronic, or Acute on Chronic? @ -Acute Uncomplicated (without systemic symptoms) or Complicated (systemic symptoms)? @ -Uncomplicated Side effects of treatment? @ -None Exacerbation, Progression, or Severe Exacerbation] @ -Not applicable Poses a threat to life or bodily function? @ -No Return precautions reviewed in depth, the patient is instructed to return to the emergency department with any new, worsening, or concerning symptoms. Patient verbalized understanding. This case was discussed in detail with the attending ED physician, Dr. Lan. Presentation, findings, and treatment plan discussed in detail as well. - Lab Data Result diagrams: 04/02/23 16:13 04/02/23 16:13 Lab Results 04/02/23 04/02/23 04/02/23 Range/Units 16:13 16:13 16:13 WBC 6.0 (3.8-10.6) k/uL RBC 4.01 L (4.30-5.90) m/uL Hgb 12.4 L (13.0-17.5) gm/dL Hct 38.5 L (39.0-53.0) % MCV 95.9 (80.0-100.0) fL MCH 30.8 (25.0-35.0) pg MCHC 32.1 (31.0-37.0) g/dL RDW 14.0 (11.5-15.5) % Plt Count 206 (150-450) k/uL MPV 9.8 Neutrophils % 82 % Lymphocytes % 6 % Monocytes % 8 % Eosinophils % 1 % Basophils % 0 % Neutrophils # 5.0 (1.3-7.7) k/uL Lymphocytes # 0.4 L (1.0-4.8) k/uL Monocytes # 0.5 (0-1.0) k/uL Eosinophils # 0.1 (0-0.7) k/uL Basophils # 0.0 (0-0.2) k/uL Hypochromasia Slight Sodium 138 (137-145) mmol/L Potassium 4.7 (3.5-5.1) mmol/L Chloride 100 (98-107) mmol/L Carbon Dioxide 28 (22-30) mmol/L Anion Gap 10 mmol/L BUN 19 (9-20) mg/dL Creatinine 1.03 (0.66-1.25) mg/dL Est GFR (CKD-EPI)AfAm 78 (>60 ml/min/1.73 sqM) Est GFR (CKD-EPI)NonAf 67 (>60 ml/min/1.73 sqM) Glucose 123 H (74-99) mg/dL Calcium 8.9 (8.4-10.2) mg/dL Total Bilirubin 0.5 (0.2-1.3) mg/dL AST 25 (17-59) U/L ALT 20 (4-49) U/L Alkaline Phosphatase 58 (38-126) U/L Total Protein 6.6 (6.3-8.2) g/dL Albumin 4.1 (3.5-5.0) g/dL Amylase 64 (30-110) U/L Lipase 205 (23-300) U/L Urine Color Yellow Urine Appearance Clear (Clear) Urine pH 5.5 (5.0-8.0) Ur Specific [place] 1.028 (1.001-1.035) Urine Protein 1+ H (Negative) Urine Glucose (UA) Negative (Negative) Urine Ketones 1+ H (Negative) Urine Blood Trace H (Negative) Urine Nitrite Negative (Negative) Urine Bilirubin Negative (Negative) Urine Urobilinogen <2.0 (<2.0) mg/dL Ur Leukocyte Esterase Negative (Negative) Urine RBC 1 (0-5) /hpf Urine WBC 1 (0-5) /hpf Ur Squamous Epith Cells 1 (0-4) /hpf Urine Bacteria Rare H (None) /hpf Urine Mucus Many H (None) /hpf Influenza Type A (PCR) (Not Detectd) Influenza Type B (PCR) (Not Detectd) RSV (PCR) (Not Detectd) SARS-CoV-2 (PCR) (Not Detectd) 04/02/23 Range/Units 16:13 WBC (3.8-10.6) k/uL RBC (4.30-5.90) m/uL Hgb (13.0-17.5) gm/dL Hct (39.0-53.0) % MCV (80.0-100.0) fL MCH (25.0-35.0) pg MCHC (31.0-37.0) g/dL RDW (11.5-15.5) % Plt Count (150-450) k/uL MPV Neutrophils % % Lymphocytes % % Monocytes % % Eosinophils % % Basophils % % Neutrophils # (1.3-7.7) k/uL Lymphocytes # (1.0-4.8) k/uL Monocytes # (0-1.0) k/uL Eosinophils # (0-0.7) k/uL Basophils # (0-0.2) k/uL Hypochromasia Sodium (137-145) mmol/L Potassium (3.5-5.1) mmol/L Chloride (98-107) mmol/L Carbon Dioxide (22-30) mmol/L Anion Gap mmol/L BUN (9-20) mg/dL Creatinine (0.66-1.25) mg/dL Est GFR (CKD-EPI)AfAm (>60 ml/min/1.73 sqM) Est GFR (CKD-EPI)NonAf (>60 ml/min/1.73 sqM) Glucose (74-99) mg/dL Calcium (8.4-10.2) mg/dL Total Bilirubin (0.2-1.3) mg/dL AST (17-59) U/L ALT (4-49) U/L Alkaline Phosphatase (38-126) U/L Total Protein (6.3-8.2) g/dL Albumin (3.5-5.0) g/dL Amylase (30-110) U/L Lipase (23-300) U/L Urine Color Urine Appearance (Clear) Urine pH (5.0-8.0) Ur Specific [place] (1.001-1.035) Urine Protein (Negative) Urine Glucose (UA) (Negative) Urine Ketones (Negative) Urine Blood (Negative) Urine Nitrite (Negative) Urine Bilirubin (Negative) Urine Urobilinogen (<2.0) mg/dL Ur Leukocyte Esterase (Negative) Urine RBC (0-5) /hpf Urine WBC (0-5) /hpf Ur Squamous Epith Cells (0-4) /hpf Urine Bacteria (None) /hpf Urine Mucus (None) /hpf Influenza Type A (PCR) Not Detected (Not Detectd) Influenza Type B (PCR) Not Detected (Not Detectd) RSV (PCR) Not Detected (Not Detectd) SARS-CoV-2 (PCR) Not Detected (Not Detectd) Disposition Clinical Impression: Gastroenteritis Disposition: HOME SELF-CARE Instructions (If sedation given, give patient instructions): Gastroenteritis (ED), Acute Diarrhea (ED) Additional Instructions: Return to the emergency department with any new, worsening, or concerning symptoms. You can take the Zofran up to every 8 hours as needed for nausea and vomiting. Continue to use Imodium as needed for diarrhea. Follow up with your primary care provider in 1-2 days. Prescriptions: Ondansetron Odt [Zofran Odt] 4 mg PO Q8HR PRN #10 tab PRN Reason: Nausea And Vomiting Is patient prescribed a controlled substance at d/c from ED?: No Referrals: Blake Barber MD [Primary Care Provider] - 1-2 days
[2023-04-02 16:35] LABS: Basophils % (A) 0 %; Eosinophils # (A) 0.1 k/uL (0-0.7); Eosinophils % (A) 1 %; HCT 38.5 % (39.0-53.0); HGB 12.4 gm/dL (13.0-17.5); Hypochromasia Slight; Lymphocytes # (A) 0.4 k/uL (1.0-4.8); Lymphocytes % (A) 6 %; MCH 30.8 pg (25.0-35.0); MCHC 32.1 g/dL (31.0-37.0); MCV 95.9 fL (80.0-100.0); Mean Platelet Volume 9.8; Monocytes # (A) 0.5 k/uL (0-1.0); Monocytes % (A) 8 %; Neutrophils % (A) 82 %; Platelet Count 206 k/uL (150-450); RBC 4.01 m/uL (4.30-5.90)
[2023-04-02 16:47] LABS: Albumin 4.1 g/dL (3.5-5.0); Calcium 8.9 mg/dL (8.4-10.2); Potassium 4.7 mmol/L (3.5-5.1); Total Bilirubin 0.5 mg/dL (0.2-1.3); Total Protein 6.6 g/dL (6.3-8.2)
[2023-04-02] MEDS ORDERED: ONDANSETRON 4 MG ODT STARTER PACK 2 TAB BTL PO STA (19:17)
[2023-04-02] MEDS ORDERED: DIPHENOX-ATROP STARTER PACK 8 TAB BTL PO STA (19:40)
[2023-04-02 20:27] LABS: Appearance,Urine Clear (Clear); Bacteria,Urine Rare /hpf; Bilirubin,Urine Negative (Negative); Blood,Urine Trace (Negative); Color,Urine Yellow; Glucose,Urine (UA) Negative (Negative); Ketones,Urine 1+ (Negative); Leukocyte Esterase,Urine Negative (Negative); Mucus,Urine Many /hpf; Nitrite,Urine Negative (Negative); PH, Urine 5.5 (5.0-8.0); Protein,Urine 1+ (Negative); RBC,Urine 1 /hpf (0-5); Specific Gravity,Urine 1.028 (1.001-1.035); Squamous Epithelial Cell,Urine 1 /hpf (0-4); Urobilinogen,Urine <2.0 mg/dL (<2.0); WBC,Urine 1 /hpf (0-5)
[2023-04-02 20:41] VITALS: BP 138/66; PULSE 78; RESP 16; TEMP 97.9
== END 2023-04-02 20:40 | disposition home or self-care (01) ==
LOC: EC 15:49
DX: K52.9 Noninfective gastroenteritis and colitis, unspecified (principal); I10 Essential (primary) hypertension; J44.9 Chronic obstructive pulmonary disease, unspecified; E78.5 Hyperlipidemia, unspecified; M19.90 Unspecified osteoarthritis, unspecified site; Z79.899 Other long term (current) drug therapy; Z88.8 Allergy status to other drugs, medicaments and biological substances; Z87.891 Personal history of nicotine dependence; Z20.822 Contact with and (suspected) exposure to COVID-19
CPT/HCPCS: 36415; 93005; 80053; 82150; 83690; 85025; 81001; 87636; 99284; 96374; 96375; 96361 ×2; J2405; S0119

== ENCOUNTER 2023-05-29 10:40 | Inpatient (IN) | payer MEDICARE, OTHER ==
[2023-05-25 13:50] VITALS: BMI 29.4
[~2023-05-29 10:40] MED LIST changes: +DEXAMETHASONE SOD PHOSPHATE 4 MG/ML 1 ML VIAL IV ONE; +HYDROmorphone 0.5 MG/0.5 ML SYRINGE IVP PRN; -LACTATED RINGERS 1,000 ML IV SCH; +LIDOCAINE 1% (10MG/ML) FOR IV START INTRADERMA PRN; +METOCLOPRAMIDE 5 MG/ML 2 ML VIAL IVP PRN; +ONDANSETRON 4 MG/2 ML VIAL IVP ONE
[2023-05-29] MEDS: LACTATED RINGERS 1,000 ML IV SCH (11:35)
[2023-05-29 11:37] LABS: ALT 17 U/L (4-49); AST 58 U/L (17-59); African American GFR (CKD) 72 (>60 ml/min/1.73 sqM); Albumin 4.1 g/dL (3.5-5.0); Alkaline Phosphatase 90 U/L (38-126); Anion Gap 8 mmol/L; Blood Urea Nitrogen 17 mg/dL (9-20); Calcium 8.7 mg/dL (8.4-10.2); Carbon Dioxide 30 mmol/L (22-30); Chloride 100 mmol/L (98-107); Glucose 111 mg/dL (74-99); Non-African American GFR(CKD) 63 (>60 ml/min/1.73 sqM); Sodium 138 mmol/L (137-145); Total Bilirubin 0.7 mg/dL (0.2-1.3); Total Protein 7.1 g/dL (6.3-8.2)
[2023-05-29 11:40] LABS: Potassium 4.8 mmol/L (3.5-5.1)
--- NOTE | 2023-05-29 12:14 | P.GSHP ---
History of Present Illness H&P Date: 05/29/23 Chief Complaint: right lower extremity pain 82 year old male with history of PAD, claudication and critical limb ischemia with recent lower extremity angiogram presents today for femoral endarterectomy and possible bypass. He denies any fevers, chills, chest pain or shortness of breath. - Review of Systems All systems: negative (what is mentioned in the PMH or HPI) Past Medical History Past Medical History: Eye Disorder, Hyperlipidemia, Hypertension, Osteoarthritis (OA), Vascular Disorder Additional Past Medical History / Comment(s): Sciatica, PVD, GLAUCOMA, has had double vision a few times, no diagnosis. History of Any Multi-Drug Resistant Organisms: None Reported Past Surgical History: Heart Catheterization, Heart Catheterization With Stent Additional Past Surgical History / Comment(s): 3 stents in left leg, angioplasty bilateral legs, aortogram, bilateral cataracts, FEMPOP BYPASS LEFT LEG -FAILED, cysts removed from back and chest. Past Anesthesia/Blood Transfusion Reactions: No Reported Reaction Date of Last Stent Placement:: 2016 Past Psychological History: No Psychological Hx Reported Smoking Status: Former smoker Past Alcohol Use History: Rare Additional Past Alcohol Use History / Comment(s): SMOKED FROM 4 TO 1988, 1-2 PPD. Past Drug Use History: None Reported - Past Family History Mother Family Medical History: Diabetes Mellitus Father Family Medical History: Coronary Artery Disease (CAD), Rheumatoid Arthritis (RA) Additional Family Medical History / Comment(s): ARTERIAL SCLEROSIS Medications and Allergies Home Medications Medication Instructions Recorded Confirmed Type Dorzolamide/Timolol/Pf [Cosopt Pf 1 drop BOTH EYES BID 03/18/17 05/25/23 History 2%/0.5% Ophth Droperette] Gabapentin [Neurontin] 300 mg PO TID 11/18/17 05/25/23 History Travoprost [Travatan Z 0.004%] 1 drop BOTH EYES DAILY 12/12/18 05/25/23 History Aspirin EC [Ecotrin Low Dose] 81 mg PO PC-SUPPER #0 11/11/19 05/29/23 Rx Clopidogrel Bisulfate [Plavix] 75 mg PO QAM #0 11/11/19 05/25/23 Rx Simvastatin [Zocor] 40 mg PO HS 12/06/20 05/25/23 History hydroCHLOROthiazide [Hydrodiuril] 12.5 mg PO DAILY 12/06/20 05/25/23 History HYDROcodone/APAP 10-325MG [[place] 1 tab PO DIRECTED PRN 03/14/21 05/29/23 History 10-325] Allergies Allergy/AdvReac Type Severity Reaction Status Date / Time rivaroxaban [From Xarelto] Allergy "internal Verified 05/29/23 11:07 bleeding" Surgical - Exam Vital Signs Temp Pulse Resp BP Pulse Ox 97.1 F L 55 L 16 156/64 99 05/29/23 11:09 05/29/23 11:09 05/29/23 11:09 05/29/23 11:09 05/29/23 11:09 non palpable dp or pt pulse on the right. Monophasic signals dp and pt bilaterally. - General well developed, well nourished, no distress - Eyes PERRL, normal ocular movement - ENT normal pinna, normal nares - Respiratory normal expansion, normal respiratory effort - Cardiovascular Rhythm: regular - Abdomen Abdomen: soft Results - Labs 05/29/23 11:18 Abnormal Lab Results - Last 24 Hours (Table) 05/29/23 Range/Units 11:18 Glucose 111 H (74-99) mg/dL Diabetes panel 05/29/23 Range/Units 11:18 Sodium 138 (137-145) mmol/L Potassium 4.8 (3.5-5.1) mmol/L Chloride 100 (98-107) mmol/L Carbon Dioxide 30 (22-30) mmol/L BUN 17 (9-20) mg/dL Creatinine 1.09 (0.66-1.25) mg/dL Glucose 111 H (74-99) mg/dL Calcium 8.7 (8.4-10.2) mg/dL AST 58 (17-59) U/L ALT 17 (4-49) U/L Alkaline Phosphatase 90 (38-126) U/L Total Protein 7.1 (6.3-8.2) g/dL Albumin 4.1 (3.5-5.0) g/dL Calcium panel 05/29/23 Range/Units 11:18 Calcium 8.7 (8.4-10.2) mg/dL Albumin 4.1 (3.5-5.0) g/dL Pituitary panel 05/29/23 Range/Units 11:18 Sodium 138 (137-145) mmol/L Potassium 4.8 (3.5-5.1) mmol/L Chloride 100 (98-107) mmol/L Carbon Dioxide 30 (22-30) mmol/L BUN 17 (9-20) mg/dL Creatinine 1.09 (0.66-1.25) mg/dL Glucose 111 H (74-99) mg/dL Calcium 8.7 (8.4-10.2) mg/dL Adrenal panel 05/29/23 Range/Units 11:18 Sodium 138 (137-145) mmol/L Potassium 4.8 (3.5-5.1) mmol/L Chloride 100 (98-107) mmol/L Carbon Dioxide 30 (22-30) mmol/L BUN 17 (9-20) mg/dL Creatinine 1.09 (0.66-1.25) mg/dL Glucose 111 H (74-99) mg/dL Calcium 8.7 (8.4-10.2) mg/dL Total Bilirubin 0.7 (0.2-1.3) mg/dL AST 58 (17-59) U/L ALT 17 (4-49) U/L Alkaline Phosphatase 90 (38-126) U/L Total Protein 7.1 (6.3-8.2) g/dL Albumin 4.1 (3.5-5.0) g/dL Assessment and Plan Assessment: 1. Femoral occlusive disease 2. Disabling claudication/ Rest pain [place] 4 Plan: To OR for femoral endartectomy and possible bypass
[2023-05-29] MEDS ORDERED: LIDOCAINE 2% INJ 20 MG/ML (2 ML VIAL) ONE (12:31)
[2023-05-29] MEDS ORDERED: PHENYLEPHRINE-0.9% NACL SYG 1,000 MCG/10 ML SYRINGE ONE ×2 (12:31→21:04)
[2023-05-29] MEDS ORDERED: SUCCINYLCHOLINE CHLORIDE 200 MG/10 ML VIAL IV ONE ×2 (12:31→21:04)
[2023-05-29] MEDS ORDERED: PROPOFOL 10 MG/ML 20 ML VIAL IV ONE (12:31)
[2023-05-29] MEDS ORDERED: ROCURONIUM 10 MG/ML (5 ML VIAL) IV ONE ×2 (12:31→21:04)
[2023-05-29] MEDS ORDERED: GLYCOPYRROLATE 0.2 MG/ML 2 ML VIAL ONE (12:31)
[2023-05-29] MEDS ORDERED: fentaNYL (PF) 50 MCG/ML 2 ML AMP ONE ×2 (12:31→21:04)
[2023-05-29] MEDS ORDERED: NEOSTIGMINE 1 MG/ML 10 ML VIAL ONE (12:31)
[2023-05-29] MEDS ORDERED: HEPARIN SODIUM,PORCINE 10,000 UNIT/ML 1 ML VIAL ONE (12:31)
[2023-05-29] MEDS ORDERED: GELATIN SPONGE,ABSORB (LARGE) 1 EACH SPONGE TOPICAL ONE (13:26)
[2023-05-29] MEDS ORDERED: THROMBIN (BOVINE) 5,000 UNIT VIAL TOPICAL ONE (13:26)
[2023-05-29] MEDS ORDERED: HEPARIN SODIUM (1,000 UNIT/ML) 2,000 UNIT in SODIUM CHLORIDE 0.9% 1,000 ML IRRIGATION ONE (13:27)
[2023-05-29] MEDS ORDERED: ceFAZolin 2 GM in SODIUM CHLORIDE 0.9% 500 ML 500 ML IRRIGATION ONE (13:28)
[2023-05-29] MEDS ORDERED: LACTATED RINGERS 1,000 ML IV ONE (14:14)
[2023-05-29] MEDS ORDERED: IOPAMIDOL-370 100ML BTL INJ ONE (15:06)
[2023-05-29] MEDS ORDERED: IOPAMIDOL-370 100ML BTL MISCELLANE ONE (15:06)
--- NOTE | 2023-05-29 18:35 | FL ---
Intraoperative/procedural fluoroscopic services were provided. Total fluoroscopy time is 3 minutes 26 seconds with a total of 650 submitted images to PACS. Please see the operative/procedural note for f urther details. DAP: 16.490 Gycm2
--- NOTE | 2023-05-29 18:45 | P.OP ---
Date of Procedure: 05/29/23 Preoperative Diagnosis: Disabling claudication and critical limb ischemia Right femoral and SFA occlusion Postoperative Diagnosis: Same Procedure(s) Performed: Right femoral endarterectomy with patch angioplasty Selective right lower extremity angiogram Right femoral to below knee popliteal insitu bypass Anesthesia: DARIUS Surgeon: Dejuan David Estimated Blood Loss (ml): 150 Pathology: other (right groin lymph node, femoral plaque) Condition: stable Disposition: PACU Indications for Procedure: 82 year old gentleman with history of PAD, critical limb ischemia and femoral artery occlusion presents to the hospital for right femoral endarterectomy with possible bypass. Operative Findings: Severe scarring at the femoral artery. Occlusion of right femoral and SFA. Description of Procedure: Operative narrative: After written and informed consent was obtained from the patient all risks benefits and complications were described the patient is brought to the operative suite and laid in a supine position. The area of the abdomen, right lower extremity was prepped and draped in usual sterile fashion after appropriate anesthetic was performed per the anesthesiologist. A timeout was performed in normal fashion. Antibiotics were administered prior to incision. A vertical incision was created at the right groin and dissection was carried down to the common femoral artery. Significant scarring was encountered and meticulous dissection was performed. The common femoral, superficial femoral and profundus femoris arteries were dissected free in a circumferential manner and controlled with vessel loops. Patient was administered heparin and proximal and distal vessels were clamped and arteriotomy was created with 11 blade scalpel and extended with Pott Bautista scissors. There was dense plaque and thrombosed areas within the femoral artery and endarterectomy was performed and this was removed. The distal aspect at the SFA was feathered and some backbleeding was noted. All free debris was removed and patch angioplasty was performed with 6-0 Prolene suture and a bovine pericardial patch. A micro sheath was then placed and selective angiogram was obtained demonstrating flow to the femoral artery but complete occlusion of the superficial femoral artery. Attempt to get a wire across the lesion failed and due to the long occlusion the decision was made to perform a bypass. Attention was then placed to the greater saphenous vein which was dissected free up to the saphenofemoral junction. A vessel loop was then placed around this area. Attention was then placed distally and a transverse incision was created on the medial aspect of the lower leg just below the knee with a 15 blade scalpel. Dissection was then carried down with electrocautery through the fascia to the popliteal artery. Popliteal artery, tibioperoneal trunk was then dissected free in a circumferential manner and controlled with vessel loops. The anterior tibial artery was also dissected free and visualized. Once controlled attention was then placed to dissection of the greater saphenous vein. Meticulous dissection was then performed of the greater saphenous vein and controlled with a blue vessel loop. Patient was then administered heparin. The proximal greater saphenous vein was then resected and suture ligated at the saphenofemoral junction. The vein was then brought over to the femoral artery and the artery was clamped both proximally and distally. Arteriotomy was then created with 11 blade scalpel and extended with Pott Bautista scissors. End-to-side anastomosis was then created with 6-0 Prolene suture in a running fashion after the vein was dilated with serial dilation. Good backbleeding was noted from the vein and good brisk forward bleeding was noted from the artery. Final sutures were then placed good pulsatile blood flow was noted within the vein bypass. The vein was then ligated distally and utilizing a valvulotome the valves were destroyed up to the proximal aspect at the previous anastomosis until there was good pulsatile bleeding noted through the bypass. The tibial peroneal trunk was then controlled and arteriotomy was created with 11 blade scalpel and extended with Pott Bautista scissors. There was good backbleeding noted. The vein was then spatulated and an end-to-side anastomosis was created with 6-0 Prolene suture in a running fashion. Prior to last sutures being placed backbleeding was once again assessed which was adequate and proximal control was released revealing good pulsatile blood flow. Final sutures were placed and good pulsatile blood flow was noted within the bypass. An angiocath was then placed at the femoral artery and angiogram was obtained which demonstrated one branch that was stealing flow and therefore a small incision over this area was made and branch was dissected free and suture ligated. Doppler signals were then noted distal to the bypass and were multiphasic. The areas were then copiously irrigated with antibiotic solution. The incisions were then closed in a multilayer fashion after hemostasis was assured and the skin was then cleansed and dressings were placed. The patient tolerated procedure well and multiphasic flow in the anterior tibial artery and was sent to PACU for recovery.
[2023-05-29 19:56] LABS: Glucose,Whole Blood 199 mg/dL (70-110)
[2023-05-29 20:25] LABS: Basophils % (A) 0 %; Eosinophils # (A) 0.1 k/uL (0-0.7); Eosinophils % (A) 1 %; HCT 22.7 % (39.0-53.0); Hypochromasia Marked; Lymphocytes # (A) 1.1 k/uL (1.0-4.8); Lymphocytes % (A) 8 %; MCHC 30.1 g/dL (31.0-37.0); MCV 86.6 fL (80.0-100.0); Mean Platelet Volume 9.5; Monocytes # (A) 0.2 k/uL (0-1.0); Monocytes % (A) 1 %; Neutrophils # (A) 11.6 k/uL (1.3-7.7); Neutrophils % (A) 89 %; Platelet Count 351 k/uL (150-450); Poikilocytosis Slight; RBC 2.63 m/uL (4.30-5.90); RDW 14.9 % (11.5-15.5)
[2023-05-29] MEDS: NOREPINEPHRINE 4 MG in SODIUM CHLORIDE 0.9% 250 ML IV SCH (20:30)
[2023-05-29 20:31] LABS: Glucose,Whole Blood 211 mg/dL (70-110)
[2023-05-29 20:35] LABS: HGB 6.8 gm/dL (13.0-17.5)
[2023-05-29] MEDS ORDERED: ETOMIDATE 2 MG/ML 10 ML VIAL ONE (21:04)
[2023-05-29] MEDS ORDERED: MIDAZOLAM 2 MG/2 ML VIAL ONE (21:04)
--- NOTE | 2023-05-29 21:04 | P.PN ---
Progress Note - Text Progress Note Date: 05/29/23 Called by floor secondary to increased swelling in the groin and hypotension. Per nursing blood pressure dropped to 70's and the right groin and thigh began to swell. Patient was transferred to the ICU and blood transfusion was initiated. Patient seen in the ICU- awake and alert. Blood pressure improved with blood. Hematoma at the groin incision extending up to the lower abdomen, and medial thigh. No pulse noted in the bypass. Monophasic AT signal. Will take to OR emergently for hematoma evacuation and hemorrhage control.
[2023-05-29] MEDS ORDERED: IV FLUID CONTINUATION 1,000 ML IV ONE (21:16)
[2023-05-29] MEDS ORDERED: IV FLUID CONTINUATION 500 ML IV ONE (21:16)
[2023-05-29] MEDS ORDERED: SODIUM CHLORIDE 0.9% 1,000 ML IV ONE ×2 (21:16→21:45)
[2023-05-29] MEDS ORDERED: SODIUM CHLORIDE 0.9% 500 ML 500 ML with HEPARIN SODIUM,PORCINE (1 ML) 5,000 UNIT IV ONE ×2 (21:57)
[2023-05-29] MEDS ORDERED: SODIUM CHLORIDE 0.9% 500 ML 500 ML IV ONE (22:30)
[2023-05-29] MEDS ORDERED: NALOXONE 0.4 MG/ML 1 ML VIAL IV PRN (22:32)
[2023-05-29] MEDS ORDERED: THROMBIN (BOVINE) 5,000 UNIT VIAL MISCELLANE ONE (22:41)
[2023-05-29] MEDS ORDERED: GELATIN SPONGE,ABSORB (LARGE) 1 EACH SPONGE MISCELLANE ONE (22:41)
[2023-05-29] MEDS ORDERED: ceFAZolin 1,000 MG in SODIUM CHLORIDE 0.9% 1,000 ML IRRIGATION ONE (22:56)
[2023-05-30] MEDS ORDERED: propofoL 0 ML IV ONE (00:07)
[2023-05-30 00:13] LABS: Glucose,Whole Blood 182 mg/dL (70-110)
[2023-05-30] MEDS ORDERED: propofoL 100 ML IV ONE (00:25)
--- NOTE | 2023-05-30 00:26 | P.OP ---
Date of Procedure: 05/30/23 Preoperative Diagnosis: hemorrhagic shock, right groin bleed Postoperative Diagnosis: Same Procedure(s) Performed: Right groin exploration with hematoma evacuation Hemorrhage control - saphenous vein bypass bleed repair Open thrombectomy of the right femoral, saphenous vein bypass and distal popliteal artery Anesthesia: DARIUS Surgeon: Dejuan David Estimated Blood Loss (ml): 200 Pathology: none sent Condition: stable Disposition: ICU Indications for Procedure: 82 year old gentleman who underwent femoral-below knee bypass earlier in the day was an A-team for right groin expanding hematoma and hypotension. He presents to the OR emergently for hematoma evacuation and hemorrhage control. Operative Findings: saphenous vein bypass with active bleeding from a venous branch. Patch and anastomoses intact without any bleeding. Thrombosed femoral artery, saphenous vein bypass and distal popliteal artery. Description of Procedure: Patient was taken to the operating room emergently. The area of the right groin and leg was prepped and draped in the usual fashion. The previous incision at the groin was opened with a scalpel and a large hematoma was removed. No active bleeding was noted at first and the area was irrigated and the patch, and bypass were interrogated. There was a small branch coming of the bypass that had torn. There was no pulse in the bypass or femoral patch and therefore a thrombectomy was then performed through the tear with a 4 Malena and large amount of thrombus was removed with good backbleeding noted from the bypass. Proximal passing of the Malena was then performed with large clot removed from the femoral patch with good pulsatile bleeding noted. The tear was then repaired and good pulse noted at the knee over the bypass. There was no signal in the lower leg and therefore the distal incision was re-opened and dissection was carried down to the bypass. There was no pulse noted at the anastomosis. An arteriotomy was then created in a transverse fashion and Malena was placed distally across the anastomosis and thrombectomy was performed. Good backbleeding was noted. The arteriotomy was then closed with 6-0 Prolene suture. Multiphasic signal was noted distal to the bypass at the tibial peroneal trunk. The incisions were then copiously irrigated with antibiotic solution and incision was closed in a multi-layer fashion. The groin incision was then irrigated, hemostasis was ensured with gelfoam and thrombin. A 15F drain was then placed and secured with nylon suture. The incision was then closed in a multi-layer fashion with 2-0 nylon vertical mattress. The skin was cleansed and dressings placed- Prevena at the groin and steri strips, 4x4 and tagaderm for the distal incision. The patient tolerated the procedure well and was sent to ICU for recovery.
[2023-05-30 00:50] LABS: ABG HCO3 20 mmol/L (21-25); ABG Oxygen Saturation 99.6 % (94-97); ABG PCO2 37 mmHg (35-45); ABG PH 7.34 (7.35-7.45); ABG PO2 >400 mmHg (83-108); ABG TCO2 21 mmol/L (19-24); Allen Test Performed? Yes
[2023-05-30] MEDS: SODIUM CHLORIDE 0.9% 1,000 ML IV SCH ×3 (00:51→21:16)
[2023-05-30] MEDS: DORZOLAMIDE-TIMOLOL 2.23%/0.68 10ML BTL BOTH EYES SCH ×3 (00:52→21:17)
[2023-05-30] MEDS: ATORVASTATIN 20 MG TAB PO SCH ×2 (00:52→21:17)
[2023-05-30] MEDS: GABAPENTIN 300 MG CAP PO SCH ×4 (00:53→21:17)
[2023-05-30 00:57] LABS: Basophils # (A) 0.1 k/uL (0-0.2); Basophils % (A) 0 %; Eosinophils # (A) 0.1 k/uL (0-0.7); Eosinophils % (A) 1 %; HCT 43.6 % (39.0-53.0); Hypochromasia Moderate; Lymphocytes # (A) 0.7 k/uL (1.0-4.8); Lymphocytes % (A) 4 %; MCH 29.3 pg (25.0-35.0); MCHC 32.6 g/dL (31.0-37.0); Mean Platelet Volume 9.1; Monocytes # (A) 1.3 k/uL (0-1.0); Monocytes % (A) 7 %; Neutrophils # (A) 16.9 k/uL (1.3-7.7); Neutrophils % (A) 88 %; Platelet Count 178 k/uL (150-450); Poikilocytosis Slight; RBC 4.85 m/uL (4.30-5.90); RDW 14.8 % (11.5-15.5); WBC 19.3 k/uL (3.8-10.6)
[2023-05-30] MEDS: MORPHINE SULFATE 2 MG/ML SYRINGE IVP PRN ×5 (01:07→14:26)
[2023-05-30 01:15] LABS: African American GFR (CKD) 83 (>60 ml/min/1.73 sqM); Anion Gap 11 mmol/L; Blood Urea Nitrogen 15 mg/dL (9-20); Calcium 7.7 mg/dL (8.4-10.2); Carbon Dioxide 16 mmol/L (22-30); Chloride 109 mmol/L (98-107); Glucose 186 mg/dL (74-99); Non-African American GFR(CKD) 72 (>60 ml/min/1.73 sqM); Potassium 4.6 mmol/L (3.5-5.1); Sodium 136 mmol/L (137-145)
[2023-05-30 01:35] LABS: HGB 14.2 gm/dL (13.0-17.5)
[2023-05-30 04:29] LABS: Basophils % (A) 0 %; Eosinophils % (A) 0 %; HCT 40.5 % (39.0-53.0); HGB 13.5 gm/dL (13.0-17.5); Hypochromasia Slight; Lymphocytes # (A) 0.9 k/uL (1.0-4.8); Lymphocytes % (A) 4 %; MCH 29.5 pg (25.0-35.0); MCHC 33.3 g/dL (31.0-37.0); MCV 88.4 fL (80.0-100.0); Mean Platelet Volume 9.4; Monocytes # (A) 1.4 k/uL (0-1.0); Monocytes % (A) 7 %; Neutrophils # (A) 18.1 k/uL (1.3-7.7); Neutrophils % (A) 87 %; Platelet Count 180 k/uL (150-450); Poikilocytosis Slight; RBC 4.59 m/uL (4.30-5.90); RDW 14.9 % (11.5-15.5); WBC 20.7 k/uL (3.8-10.6)
[2023-05-30 04:47] LABS: African American GFR (CKD) 78 (>60 ml/min/1.73 sqM); Anion Gap 10 mmol/L; Blood Urea Nitrogen 16 mg/dL (9-20); Calcium 7.8 mg/dL (8.4-10.2); Carbon Dioxide 19 mmol/L (22-30); Chloride 108 mmol/L (98-107); Glucose 171 mg/dL (74-99); Non-African American GFR(CKD) 68 (>60 ml/min/1.73 sqM); Potassium 4.2 mmol/L (3.5-5.1); Sodium 137 mmol/L (137-145)
[2023-05-30 05:21] LABS: ABG Base Excess -4.5 mmol/L; ABG HCO3 21 mmol/L (21-25); ABG Oxygen Saturation 99.1 % (94-97); ABG PCO2 41 mmHg (35-45); ABG PH 7.33 (7.35-7.45); ABG PO2 202 mmHg (83-108); ABG TCO2 23 mmol/L (19-24); Allen Test Performed? Yes
[2023-05-30 05:53] LABS: Glucose,Whole Blood 154 mg/dL (70-110)
--- NOTE | 2023-05-30 06:53 | XR ---
EXAMINATION TYPE: XR chest 1V portable DATE OF EXAM: 05/30/2023 6:43 AM COMPARISON: Chest radiographs from 12/12/2018 TECHNIQUE: XR chest 1V portable Portable AP radiograph of the chest. CLINICAL INDICATION:Male, 82 years old with history of OG tube placement; FINDINGS: Lungs/Pleura: There is no evidence of pleural effusion, focal consolidation, or pneumothorax. Pulmonary vascularity: Unremarkable. Heart/mediastinum: Cardiomediastinal silhouette is prominent in size. Musculoskeletal: No acute osseous pathology. Other findings: None Lines/Tubes: Endotracheal tube with distal tip 5.4 cm above the hector Orogastric tube with its distal tip in the stomach however the sidehole is at the GE junction. IMPRESSION: 1. Endotracheal tube in appropriate position. 2. OG tube with distal tip in the stomach however sidehole is at the GE junction. Recommend advancem ent of 4 cm.
[2023-05-30] MEDS: LATANOPROST 0.005% OPHTH DROPS 2.5 ML BTL BOTH EYES SCH (08:56)
[2023-05-30] MEDS: LACTATED RINGERS 1,000 ML IV SCH (08:56)
--- NOTE | 2023-05-30 08:59 | P.PN ---
Subjective Progress Note Date: 05/30/23 Principal diagnosis: right lower extremity occlusive disease, POD 1 right femoral-below knee bypass and takeback for bleed Doing well overnight. No issues, off pressors, blood pressure stable. Per nursing doing well on the vent and no issues with right groin or bypass. Objective - Vital Signs Vital signs: Vital Signs Temp 97.4 F L 05/30/23 08:00 Pulse 55 L 05/30/23 08:30 Resp 10 L 05/30/23 08:30 BP 138/57 05/30/23 08:30 Pulse Ox 100 05/30/23 08:30 FiO2 50 05/30/23 08:17 Intake & Output 05/29/23 05/30/23 05/30/23 18:59 06:59 18:59 Intake Total 1752 2648.947 160 Output Total 750 700 100 Balance 1002 1948.947 60 Weight 75.2 kg 81 kg Intake: IV 1752 1582 160 Sodium Chloride 0.9% 1, 480 160 000 ml @ 80 mls/hr IV . [id number] [facility] Rx#:[id number] ceFAZolin 2 gm In Sodium 100 Chloride 0.9% 50 ml @ 100 mls/hr IVPB ONCE PRN Rx# :[id number] Intake, IV Titration 136.947 Amount Norepinephrine 4 mg In 51.669 Sodium Chloride 0.9% 250 ml @ 0.03 MCG/KG/MIN 8. 595 mls/hr IV .Q24H [facility]TE Rx#:[id number] propofoL 1,000 mg In 85.278 Empty Bag 1 bag @ 15 MCG/ KG/MIN 6.768 mls/hr IV . [id number] [facility]TE Rx#:[id number] Blood Product 930 Rc As-1 Unit 310 [id number] Rc As-1 Unit 310 [id number] Rc As-1 Unit 310 [id number] Output: Drainage 110 50 Right Groin 110 50 Urine 600 390 50 Estimated Blood Loss 150 200 Other: Voiding Method Indwelling Catheter Indwelling Catheter - Exam Vented, sedated Right groin dressings in place, no hematoma. JOSE ANGEL drain in place with serosanguinous output. Palpable pulse in the bypass at the knee. Multiphasic signal at the anterior tibial artery. Foot is warm, slow capillary refill. - Labs CBC & Chem 7: 05/30/23 03:42 05/30/23 03:42 Labs: Abnormal Lab Results - Last 24 Hours (Table) 05/26/23 05/29/23 05/29/23 Range/Units 09:22 11:18 19:53 WBC (3.8-10.6) k/uL RBC (4.30-5.90) m/uL Hgb (13.0-17.5) gm/dL Hct (39.0-53.0) % MCHC (31.0-37.0) g/dL Neutrophils # (1.3-7.7) k/uL Lymphocytes # (1.0-4.8) k/uL Monocytes # (0-1.0) k/uL ABG pH (7.35-7.45) ABG pO2 (83-108) mmHg ABG HCO3 (21-25) mmol/L ABG O2 Saturation (94-97) % Sodium (137-145) mmol/L Chloride (98-107) mmol/L Carbon Dioxide (22-30) mmol/L Glucose 111 H (74-99) mg/dL POC Glucose (mg/dL) 199 H (70-110) mg/dL Calcium (8.4-10.2) mg/dL Crossmatch See Detail 05/29/23 05/29/23 05/29/23 Range/Units 20:10 20:30 20:43 WBC 13.0 H (3.8-10.6) k/uL RBC 2.63 L (4.30-5.90) m/uL Hgb 6.8 L* D (13.0-17.5) gm/dL Hct 22.7 L (39.0-53.0) % MCHC 30.1 L (31.0-37.0) g/dL Neutrophils # 11.6 H (1.3-7.7) k/uL Lymphocytes # (1.0-4.8) k/uL Monocytes # (0-1.0) k/uL ABG pH (7.35-7.45) ABG pO2 (83-108) mmHg ABG HCO3 (21-25) mmol/L ABG O2 Saturation (94-97) % Sodium (137-145) mmol/L Chloride (98-107) mmol/L Carbon Dioxide (22-30) mmol/L Glucose (74-99) mg/dL POC Glucose (mg/dL) 211 H (70-110) mg/dL Calcium (8.4-10.2) mg/dL Crossmatch See Detail 05/30/23 05/30/23 05/30/23 Range/Units 00:11 00:44 00:45 WBC 19.3 H (3.8-10.6) k/uL RBC (4.30-5.90) m/uL Hgb (13.0-17.5) gm/dL Hct (39.0-53.0) % MCHC (31.0-37.0) g/dL Neutrophils # 16.9 H (1.3-7.7) k/uL Lymphocytes # 0.7 L (1.0-4.8) k/uL Monocytes # 1.3 H (0-1.0) k/uL ABG pH (7.35-7.45) ABG pO2 (83-108) mmHg ABG HCO3 (21-25) mmol/L ABG O2 Saturation (94-97) % Sodium 136 L (137-145) mmol/L Chloride 109 H (98-107) mmol/L Carbon Dioxide 16 L (22-30) mmol/L Glucose 186 H (74-99) mg/dL POC Glucose (mg/dL) 182 H (70-110) mg/dL Calcium 7.7 L (8.4-10.2) mg/dL Crossmatch 05/30/23 05/30/23 05/30/23 Range/Units 00:48 03:42 03:42 WBC 20.7 H (3.8-10.6) k/uL RBC (4.30-5.90) m/uL Hgb (13.0-17.5) gm/dL Hct (39.0-53.0) % MCHC (31.0-37.0) g/dL Neutrophils # 18.1 H (1.3-7.7) k/uL Lymphocytes # 0.9 L (1.0-4.8) k/uL Monocytes # 1.4 H (0-1.0) k/uL ABG pH 7.34 L (7.35-7.45) ABG pO2 >400 H (83-108) mmHg ABG HCO3 20 L (21-25) mmol/L ABG O2 Saturation 99.6 H (94-97) % Sodium (137-145) mmol/L Chloride 108 H (98-107) mmol/L Carbon Dioxide 19 L (22-30) mmol/L Glucose 171 H (74-99) mg/dL POC Glucose (mg/dL) (70-110) mg/dL Calcium 7.8 L (8.4-10.2) mg/dL Crossmatch 05/30/23 05/30/23 Range/Units 05:20 05:51 WBC (3.8-10.6) k/uL RBC (4.30-5.90) m/uL Hgb (13.0-17.5) gm/dL Hct (39.0-53.0) % MCHC (31.0-37.0) g/dL Neutrophils # (1.3-7.7) k/uL Lymphocytes # (1.0-4.8) k/uL Monocytes # (0-1.0) k/uL ABG pH 7.33 L (7.35-7.45) ABG pO2 202 H (83-108) mmHg ABG HCO3 (21-25) mmol/L ABG O2 Saturation 99.1 H (94-97) % Sodium (137-145) mmol/L Chloride (98-107) mmol/L Carbon Dioxide (22-30) mmol/L Glucose (74-99) mg/dL POC Glucose (mg/dL) 154 H (70-110) mg/dL Calcium (8.4-10.2) mg/dL Crossmatch Assessment and Plan Assessment: Femoral occlusive disease Disabling claudication/ Rest pain Luce 4 POD 1 right femoral below knee bypass Right groin hematoma, hemorrhagic shock secondary to bleed from bypass- resolved. Plan: Wean vent per ICU team aspirin, plavix and statin once extubated neurovascular checks once extubated then increase activity- PT/OT to evaluate.
[2023-05-30] MEDS: HYDROcodone/APAP 5-325MG 1 EACH TAB PO PRN ×2 (09:57→21:16)
[2023-05-30] MEDS: hydroCHLOROthiazide 12.5 MG CAP PO SCH (09:59)
[2023-05-30] MEDS: CLOPIDOGREL 75 MG TAB PO SCH (09:59)
--- NOTE | 2023-05-30 11:06 | P.CNPUL ---
History of Present Illness Consult date: 05/30/23 Requesting physician: Dejuan David Reason for consult: other Chief complaint: ICU management. History of present illness: Pulmonary consult dated 05/30/2023. 82-year-old male who underwent a right femoral endarterectomy with patch angioplasty, as well as a selective right lower extremity angiogram, and right femoral to [id number] popliteal in situ bypass. This procedure took place on May 29. Because of bleeding in the right groin, the patient was back to the operating room, early in the morning on May 30, to have a right groin exploration with hematoma evacuation, control of bleeding, saphenous vein bypass leak repair, and open thrombectomy of the right femoral saphenous vein bypass to distal popliteal artery. The patient came back on the mechanical ventilator. For that reason, I was consulted. Currently, the patient is on assist control, rate 10, tidal volume 450, FiO2 50%, and 5 of PEEP. Blood gases show pO2 of 202, pCO2 41, and pH is 7.33. The blood gases consistent with a mild metabolic acidosis. The patient is also getting saline at 80 mL an hour, and propofol at 35 mcg/kg/m. White count 20.7, hemoglobin 13.5, hematocrit 40.5, and platelet count 180,000. Sodium 137, potassium 4.2, chlorides 108, CO2 19, with a normal BUN and creatinine. Chest x-ray is unremarkable. Review of Systems REVIEW OF SYSTEMS: A complete review of systems cannot be performed, as the patient is currently on the mechanical ventilator, and sedated. CONSTITUTIONAL: [Negative.] NEUROLOGIC: [ Negative.] HEENT: [ Negative.] CARDIAC: [Negative.] PULMONARY: [Negative.] GI: [Negative.] : [Negative.] RHEUMATOLOGIC: [ Negative.] IMMUNOLOGIC: [ Negative.] ENDOCRINE: [Negative. ] DERMATOLOGIC: [Negative.] Past Medical History Past Medical History: Eye Disorder, Hyperlipidemia, Hypertension, Osteoarthritis (OA), Vascular Disorder Additional Past Medical History / Comment(s): Sciatica, PVD, GLAUCOMA, has had double vision a few times, no diagnosis. History of Any Multi-Drug Resistant Organisms: None Reported Past Surgical History: Heart Catheterization, Heart Catheterization With Stent Additional Past Surgical History / Comment(s): 3 stents in left leg, angioplasty bilateral legs, aortogram, bilateral cataracts, FEMPOP BYPASS LEFT LEG -FAILED, cysts removed from back and chest. Past Anesthesia/Blood Transfusion Reactions: No Reported Reaction Date of Last Stent Placement:: 2016 Past Psychological History: No Psychological Hx Reported Smoking Status: Former smoker Past Alcohol Use History: Rare Additional Past Alcohol Use History / Comment(s): SMOKED FROM 1954 TO 1988, 1-2 PPD. Past Drug Use History: None Reported - Past Family History Mother Family Medical History: Diabetes Mellitus Father Family Medical History: Coronary Artery Disease (CAD), Rheumatoid Arthritis (RA) Additional Family Medical History / Comment(s): ARTERIAL SCLEROSIS Medications and Allergies Home Medications Medication Instructions Recorded Confirmed Type Dorzolamide/Timolol/Pf [Cosopt Pf 1 drop BOTH EYES BID 03/18/17 05/25/23 History 2%/0.5% Ophth Droperette] Gabapentin [Neurontin] 300 mg PO TID 11/18/17 05/25/23 History Travoprost [Travatan Z 0.004%] 1 drop BOTH EYES DAILY 12/12/18 05/25/23 History Aspirin EC [Ecotrin Low Dose] 81 mg PO PC-SUPPER #0 11/11/19 05/29/23 Rx Clopidogrel Bisulfate [Plavix] 75 mg PO QAM #0 11/11/19 05/25/23 Rx Simvastatin [Zocor] 40 mg PO HS 12/06/20 05/25/23 History hydroCHLOROthiazide [Hydrodiuril] 12.5 mg PO DAILY 12/06/20 05/25/23 History HYDROcodone/APAP 10-325MG [[place] 1 tab PO DIRECTED PRN 03/14/21 05/29/23 History 10-325] Allergies Allergy/AdvReac Type Severity Reaction Status Date / Time rivaroxaban [From Xarelto] Allergy "internal Verified 05/29/23 11:07 bleeding" Physical Exam Osteopathic Statement: *. No significant issues noted on an osteopathic structural exam other than those noted in the History and Physical/Consult. Vitals: Vital Signs Temp Pulse Pulse Pulse Resp BP BP 05/30/23 10:00 52 L 10 L 146/63 05/30/23 09:30 53 L 10 L 142/57 05/30/23 09:00 54 L 10 L 155/59 05/30/23 08:30 55 L 10 L 138/57 05/30/23 08:17 05/30/23 08:00 97.4 F L 55 L 10 L 141/58 05/30/23 07:30 58 L 10 L 157/63 05/30/23 07:00 58 L 0 L 184/74 05/30/23 06:30 58 L 4 L 159/61 05/30/23 06:00 52 L 10 L 161/67 05/30/23 05:30 54 L 0 L 155/68 05/30/23 05:00 54 L 0 L 162/64 05/30/23 04:45 53 L 10 L 143/62 05/30/23 04:30 53 L 10 L 143/65 05/30/23 04:15 54 L 10 L 151/67 05/30/23 04:00 97.5 F L 55 L 10 L 145/73 05/30/23 03:45 56 L 10 L 171/83 05/30/23 03:30 59 L 10 L 163/63 05/30/23 03:15 54 L 16 160/70 05/30/23 03:00 56 L 19 154/66 05/30/23 02:45 57 L 15 157/70 05/30/23 02:30 61 20 168/75 05/30/23 02:15 61 19 155/84 05/30/23 02:00 58 L 19 168/77 05/30/23 01:45 59 L 17 164/75 05/30/23 01:30 56 L 17 164/73 05/30/23 01:15 58 L 20 187/81 05/30/23 01:00 59 L 16 180/83 05/30/23 00:55 05/30/23 00:45 59 L 17 159/95 05/30/23 00:35 05/30/23 00:30 59 L 15 166/77 05/30/23 00:15 97.5 F L 61 15 165/80 05/30/23 00:04 05/30/23 00:00 05/29/23 21:15 121/52 05/29/23 21:07 93.6 F L 94 108/58 05/29/23 21:00 92 17 107/34 05/29/23 20:57 94.4 F L 96 13 107/34 05/29/23 20:45 96 F L 68 26 H 92/27 05/29/23 20:00 110/65 05/29/23 19:55 84/39 05/29/23 19:50 63/38 05/29/23 19:25 55 L 16 132/57 05/29/23 19:10 55 L 16 160/59 05/29/23 18:55 57 L 16 176/57 05/29/23 18:40 56 L 16 170/56 05/29/23 18:25 97.0 F L 63 16 176/62 05/29/23 11:09 97.1 F L 55 L 16 156/64 Pulse Ox FiO2 05/30/23 10:00 100 05/30/23 09:30 100 05/30/23 09:00 100 05/30/23 08:30 100 05/30/23 08:17 50 05/30/23 08:00 100 50 05/30/23 07:30 100 05/30/23 07:00 100 05/30/23 06:30 100 05/30/23 06:00 100 05/30/23 05:30 100 05/30/23 05:00 100 05/30/23 04:45 100 05/30/23 04:30 100 05/30/23 04:15 100 05/30/23 04:00 100 50 05/30/23 03:45 100 05/30/23 03:30 100 05/30/23 03:15 100 05/30/23 03:00 100 50 05/30/23 02:45 100 05/30/23 02:30 100 05/30/23 02:15 100 05/30/23 02:00 100 05/30/23 01:45 100 05/30/23 01:30 100 05/30/23 01:15 100 05/30/23 01:00 100 50 05/30/23 00:55 50 05/30/23 00:45 100 100 05/30/23 00:35 100 05/30/23 00:30 100 100 05/30/23 00:15 100 100 05/30/23 00:04 100 05/30/23 00:00 100 05/29/23 21:15 05/29/23 21:07 100 05/29/23 21:00 100 05/29/23 20:57 100 05/29/23 20:45 05/29/23 20:00 05/29/23 19:55 05/29/23 19:50 05/29/23 19:25 05/29/23 19:10 05/29/23 18:55 05/29/23 18:40 05/29/23 18:25 05/29/23 11:09 99 Intake and Output 05/29/23 05/30/23 05/30/23 22:59 06:59 14:59 Intake Total 2142.124 706.823 379.220 Output Total 1150 300 150 Balance 992.124 406.823 229.220 Intake: IV 1202 580 320 Sodium Chloride 0.9% 1, 480 320 000 ml @ 80 mls/hr IV . [id number] [facility] Rx#:[id number] ceFAZolin 2 gm In Sodium 100 Chloride 0.9% 50 ml @ 100 mls/hr IVPB ONCE PRN Rx# :[id number] Intake, IV Titration 10.124 126.823 59.220 Amount Norepinephrine 4 mg In 10.124 41.545 Sodium Chloride 0.9% 250 ml @ 0.03 MCG/KG/MIN 8. 595 mls/hr IV .Q24H [facility] Rx#:[id number] propofoL 1,000 mg In 85.278 59.220 Empty Bag 1 bag @ 15 MCG/ KG/MIN 6.768 mls/hr IV . [id number] [facility] Rx#:[id number] Blood Product 930 As-1 Unit 310 [id number] As-1 Unit 310 [id number] As-1 Unit 310 [id number] Output: Drainage 110 50 Right Groin 110 50 Urine 800 190 100 Estimated Blood Loss 350 Other: Voiding Method Indwelling Catheter Indwelling Catheter Indwelling Catheter Weight 81 kg No acute distress, sedated, with an orally placed endotracheal tube. HEENT examination is grossly unremarkable. Neck supple. Full range of motion. No adenopathy thyromegaly or neck vein distention. Cardiovascular examination reveals regular rhythm rate. S1-S2 normal. No S3 or S4. No discernible murmur noted. Heart rate 52 bpm. Lungs reveal clear breath sounds. Breath sounds are equal bilaterally. No adventitious lung sounds including wheezes rhonchi or crackles. Abdomen soft bowel sounds are heard. No masses or tenderness. Extremities are intact. No cyanosis clubbing or edema. Skin is without rash or lesion. Neurologic examination cannot be adequately assessed as the patient's currently sedated. Results - Laboratory Findings CBC and BMP: 05/30/23 03:42 05/30/23 03:42 ABG ABG pH 7.33 (7.35-7.45) L 05/30/23 05:20 ABG pCO2 41 mmHg (35-45) 05/30/23 05:20 ABG pO2 202 mmHg (83-108) H 05/30/23 05:20 ABG O2 Saturation 99.1 % (94-97) H 05/30/23 05:20 Abnormal lab findings: Abnormal Labs 05/26/23 05/29/23 05/29/23 09:22 11:18 19:53 WBC RBC Hgb Hct MCHC Neutrophils # Lymphocytes # Monocytes # ABG pH ABG pO2 ABG HCO3 ABG O2 Saturation Sodium Chloride Carbon Dioxide Glucose 111 H POC Glucose (mg/dL) 199 H Calcium Crossmatch See Detail 05/29/23 05/29/23 05/29/23 20:10 20:30 20:43 WBC 13.0 H RBC 2.63 L Hgb 6.8 L* D Hct 22.7 L MCHC 30.1 L Neutrophils # 11.6 H Lymphocytes # Monocytes # ABG pH ABG pO2 ABG HCO3 ABG O2 Saturation Sodium Chloride Carbon Dioxide Glucose POC Glucose (mg/dL) 211 H Calcium Crossmatch See Detail 05/30/23 05/30/23 05/30/23 00:11 00:44 00:45 WBC 19.3 H RBC Hgb Hct MCHC Neutrophils # 16.9 H Lymphocytes # 0.7 L Monocytes # 1.3 H ABG pH ABG pO2 ABG HCO3 ABG O2 Saturation Sodium 136 L Chloride 109 H Carbon Dioxide 16 L Glucose 186 H POC Glucose (mg/dL) 182 H Calcium 7.7 L Crossmatch 05/30/23 05/30/23 05/30/23 00:48 03:42 03:42 WBC 20.7 H RBC Hgb Hct MCHC Neutrophils # 18.1 H Lymphocytes # 0.9 L Monocytes # 1.4 H ABG pH 7.34 L ABG pO2 >400 H ABG HCO3 20 L ABG O2 Saturation 99.6 H Sodium Chloride 108 H Carbon Dioxide 19 L Glucose 171 H POC Glucose (mg/dL) Calcium 7.8 L Crossmatch 05/30/23 05/30/23 05:20 05:51 WBC RBC Hgb Hct MCHC Neutrophils # Lymphocytes # Monocytes # ABG pH 7.33 L ABG pO2 202 H ABG HCO3 ABG O2 Saturation 99.1 H Sodium Chloride Carbon Dioxide Glucose POC Glucose (mg/dL) 154 H Calcium Crossmatch - Diagnostic Findings Chest x-ray: image reviewed Assessment and Plan Assessment: Postop day #1, status post right femoral endarterectomy with patch angioplasty, and selective right lower extremity angiogram. Postop day #0, right groin exploration, with hematoma evacuation, repair saphenous vein bypass, an open thrombectomy. Routine postoperative ventilator management. History of hyperlipidemia. History of deep vein thrombosis. History of gastroesophageal reflux disease. History of thyroid nodule. Vitamin D deficiency. Plan: Plan dated 05/30/2023. The patient is seen, and examined. He remains in the intensive care unit, on the mechanical ventilator. The patient's getting saline at 80 mL an hour. He is also getting propofol at 35 mcg/kg/m. The patient will have a daily interruption of sedation, and a spontaneous breathing trial on 5 of pressure support, and 5 of CPAP. We'll get a full set a weaning parameters and a cuff leak test. The patient will likely be extubated later today. Labs, x-rays, and medications are reviewed. Prognosis is thought to be generally good. We will continue to follow. Time with Patient: Greater than 30
[2023-05-30 11:51] LABS: Glucose,Whole Blood 120 mg/dL (70-110)
[2023-05-30 11:51] LABS: Glucose,Whole Blood 158 mg/dL (70-110)
--- NOTE | 2023-05-30 11:55 | P.HPIM ---
History of Present Illness H&P Date: 05/30/23 Saravanan Sharma, is an 82-year-old male who was admitted to [facility] by Dr. David, and underwent right femoral endarterectomy with patch angioplasty, and right femoral to below knee popliteal in situ bypass, patient was transferred to telemetry floor post surgery, he developed right groin hematoma, he was taken back to operating room, and underwent right groin exploration with hematoma evacuation, saphenous vein bypass bleed repair and open thrombectomy of the right femoral and saphenous vein bypass. Patient was transferred to intensive care unit post surgery, he is intubated sedated maintained on mechanical ventilation at this time. Medical consultation was requested. Past medical history significant for history of hypertension, history of hyperlipidemia, history of peripheral vascular disease, history of spinal stenosis, history of COPD, history of glaucoma, history of coronary artery disease with history of angioplasty and stent placement. Past Medical History Past Medical History: Eye Disorder, Hyperlipidemia, Hypertension, Osteoarthritis (OA), Vascular Disorder Additional Past Medical History / Comment(s): Sciatica, PVD, GLAUCOMA, has had double vision a few times, no diagnosis. History of Any Multi-Drug Resistant Organisms: None Reported Past Surgical History: Heart Catheterization, Heart Catheterization With Stent Additional Past Surgical History / Comment(s): 3 stents in left leg, angioplasty bilateral legs, aortogram, bilateral cataracts, FEMPOP BYPASS LEFT LEG -FAILED, cysts removed from back and chest. Past Anesthesia/Blood Transfusion Reactions: No Reported Reaction Date of Last Stent Placement:: 2016 Past Psychological History: No Psychological Hx Reported Smoking Status: Former smoker Past Alcohol Use History: Rare Additional Past Alcohol Use History / Comment(s): SMOKED FROM 1955 TO 1988, 1-2 PPD. Past Drug Use History: None Reported - Past Family History Mother Family Medical History: Diabetes Mellitus Father Family Medical History: Coronary Artery Disease (CAD), Rheumatoid Arthritis (RA) Additional Family Medical History / Comment(s): ARTERIAL SCLEROSIS Medications and Allergies Home Medications Medication Instructions Recorded Confirmed Type Dorzolamide/Timolol/Pf [Cosopt Pf 1 drop BOTH EYES BID 03/18/17 05/25/23 History 2%/0.5% Ophth Droperette] Gabapentin [Neurontin] 300 mg PO TID 11/18/17 05/25/23 History Travoprost [Travatan Z 0.004%] 1 drop BOTH EYES DAILY 12/12/18 05/25/23 History Aspirin EC [Ecotrin Low Dose] 81 mg PO PC-SUPPER #0 11/11/19 05/29/23 Rx Clopidogrel Bisulfate [Plavix] 75 mg PO QAM #0 11/11/19 05/25/23 Rx Simvastatin [Zocor] 40 mg PO HS 12/06/20 05/25/23 History hydroCHLOROthiazide [Hydrodiuril] 12.5 mg PO DAILY 12/06/20 05/25/23 History HYDROcodone/APAP 10-325MG [[place] 1 tab PO DIRECTED PRN 03/14/21 05/29/23 History 10-325] Allergies Allergy/AdvReac Type Severity Reaction Status Date / Time rivaroxaban [From Xarelto] Allergy "internal Verified 05/29/23 11:07 bleeding" Physical Exam Vitals: Vital Signs Temp Pulse Pulse Resp BP BP Pulse Ox 05/30/23 11:41 05/30/23 11:00 52 L 13 146/56 100 05/30/23 10:30 53 L 10 L 149/62 100 05/30/23 10:00 52 L 10 L 146/63 100 05/30/23 09:30 53 L 10 L 142/57 100 05/30/23 09:00 54 L 10 L 155/59 100 05/30/23 08:30 55 L 10 L 138/57 100 05/30/23 08:17 05/30/23 08:00 97.4 F L 55 L 10 L 141/58 100 05/30/23 07:30 58 L 10 L 157/63 100 05/30/23 07:00 58 L 0 L 184/74 100 05/30/23 06:30 58 L 4 L 159/61 100 05/30/23 06:00 52 L 10 L 161/67 100 05/30/23 05:30 54 L 0 L 155/68 100 05/30/23 05:00 54 L 0 L 162/64 100 05/30/23 04:45 53 L 10 L 143/62 100 05/30/23 04:30 53 L 10 L 143/65 100 05/30/23 04:15 54 L 10 L 151/67 100 05/30/23 04:00 97.5 F L 55 L 10 L 145/73 100 05/30/23 03:45 56 L 10 L 171/83 100 05/30/23 03:30 59 L 10 L 163/63 100 05/30/23 03:15 54 L 16 160/70 100 05/30/23 03:00 56 L 19 154/66 05/30/23 02:45 57 L 15 157/70 05/30/23 02:30 61 20 168/75 100 05/30/23 02:15 61 19 155/84 05/30/23 02:00 58 L 19 168/77 05/30/23 01:45 59 L 17 164/75 05/30/23 01:30 56 L 17 164/73 05/30/23 01:15 58 L 20 187/81 05/30/23 01:00 59 L 16 180/83 05/30/23 00:55 05/30/23 00:45 59 L 17 159/95 05/30/23 00:35 05/30/23 00:30 59 L 15 166/77 05/30/23 00:15 97.5 F L 61 15 165/80 05/30/23 00:04 05/30/23 00:00 05/29/23 21:15 121/52 05/29/23 21:07 93.6 F L 94 108/58 100 05/29/23 21:00 92 17 107/34 05/29/23 20:57 94.4 F L 96 13 107/34 05/29/23 20:45 96 F L 68 26 H 92/27 05/29/23 20:00 110/65 05/29/23 19:55 84/39 05/29/23 19:50 63/38 05/29/23 19:25 55 L 16 132/57 05/29/23 19:10 55 L 16 160/59 100 05/29/23 18:55 57 L 16 176/57 100 05/29/23 18:40 56 L 16 170/56 05/29/23 18:25 97.0 F L 63 16 176/62 100 FiO2 05/30/23 11:41 50 05/30/23 11:00 05/30/23 10:30 05/30/23 10:00 05/30/23 09:30 05/30/23 09:00 05/30/23 08:30 05/30/23 08:17 50 05/30/23 08:00 50 05/30/23 07:30 05/30/23 07:00 05/30/23 06:30 05/30/23 06:00 05/30/23 05:30 05/30/23 05:00 05/30/23 04:45 05/30/23 04:30 05/30/23 04:15 05/30/23 04:00 50 05/30/23 03:45 05/30/23 03:30 05/30/23 03:15 05/30/23 03:00 50 05/30/23 02:45 05/30/23 02:30 05/30/23 02:15 05/30/23 02:00 05/30/23 01:45 05/30/23 01:30 05/30/23 01:15 05/30/23 01:00 50 05/30/23 00:55 50 05/30/23 00:45 100 05/30/23 00:35 100 05/30/23 00:30 100 05/30/23 00:15 100 05/30/23 00:04 100 05/30/23 00:00 100 05/29/23 21:15 05/29/23 21:07 05/29/23 21:00 05/29/23 20:57 05/29/23 20:45 05/29/23 20:00 05/29/23 19:55 05/29/23 19:50 05/29/23 19:25 05/29/23 19:10 05/29/23 18:55 05/29/23 18:40 05/29/23 18:25 Intake and Output 05/29/23 05/30/23 05/30/23 22:59 06:59 14:59 Intake Total 2142.124 706.823 460.461 Output Total 1150 300 170 Balance 992.124 406.823 290.461 Intake: IV 1202 580 400 Sodium Chloride 0.9% 1, 480 400 000 ml @ 80 mls/hr IV . [id number] [facility] Rx#:[id number] ceFAZolin 2 gm In Sodium 100 Chloride 0.9% 50 ml @ 100 mls/hr IVPB ONCE PRN Rx# :[id number] Intake, IV Titration 10.124 126.823 60.461 Amount Norepinephrine 4 mg In 10.124 41.545 Sodium Chloride 0.9% 250 ml @ 0.03 MCG/KG/MIN 8. 595 mls/hr IV .Q24H [facility] Rx#:[id number] propofoL 1,000 mg In 85.278 60.461 Empty Bag 1 bag @ 15 MCG/ KG/MIN 6.768 mls/hr IV . [id number] [facility] Rx#:[id number] Blood Product 930 Rc As-1 Unit 310 [id number] Rc As-1 Unit 310 [id number] Rc As-1 Unit 310 [id number] Output: Drainage 110 50 Right Groin 110 50 Urine 800 190 120 Estimated Blood Loss 350 Other: Voiding Method Indwelling Catheter Indwelling Catheter Indwelling Catheter Weight 81 kg Patient is intubated sedated maintained on mechanical ventilation HEENT head normocephalic and atraumatic Neck is supple no JVD no goiter no lymphadenopathy Chest exam reveals a scattered crackles bilaterally no wheezing Cardiac exam reveals regular heart sounds no gallops no murmurs Abdomen is soft nontender no organomegaly with normal bowel sounds Extremity exam reveals no edema no cyanosis or clubbing pulses are palpable Results CBC & Chem 7: 05/30/23 03:42 05/30/23 03:42 Labs: Abnormal Lab Results - Last 24 Hours (Table) 05/26/23 05/29/23 05/29/23 Range/Units 09:22 19:53 20:10 WBC 13.0 H (3.8-10.6) k/uL RBC 2.63 L (4.30-5.90) m/uL Hgb 6.8 L* D (13.0-17.5) gm/dL Hct 22.7 L (39.0-53.0) % MCHC 30.1 L (31.0-37.0) g/dL Neutrophils # 11.6 H (1.3-7.7) k/uL Lymphocytes # (1.0-4.8) k/uL Monocytes # (0-1.0) k/uL ABG pH (7.35-7.45) ABG pO2 (83-108) mmHg ABG HCO3 (21-25) mmol/L ABG O2 Saturation (94-97) % Sodium (137-145) mmol/L Chloride (98-107) mmol/L Carbon Dioxide (22-30) mmol/L Glucose (74-99) mg/dL POC Glucose (mg/dL) 199 H (70-110) mg/dL Calcium (8.4-10.2) mg/dL Crossmatch See Detail 05/29/23 05/29/23 05/30/23 Range/Units 20:30 20:43 00:11 WBC (3.8-10.6) k/uL RBC (4.30-5.90) m/uL Hgb (13.0-17.5) gm/dL Hct (39.0-53.0) % MCHC (31.0-37.0) g/dL Neutrophils # (1.3-7.7) k/uL Lymphocytes # (1.0-4.8) k/uL Monocytes # (0-1.0) k/uL ABG pH (7.35-7.45) ABG pO2 (83-108) mmHg ABG HCO3 (21-25) mmol/L ABG O2 Saturation (94-97) % Sodium (137-145) mmol/L Chloride (98-107) mmol/L Carbon Dioxide (22-30) mmol/L Glucose (74-99) mg/dL POC Glucose (mg/dL) 211 H 182 H (70-110) mg/dL Calcium (8.4-10.2) mg/dL Crossmatch See Detail 05/30/23 05/30/23 05/30/23 Range/Units 00:44 00:45 00:48 WBC 19.3 H (3.8-10.6) k/uL RBC (4.30-5.90) m/uL Hgb (13.0-17.5) gm/dL Hct (39.0-53.0) % MCHC (31.0-37.0) g/dL Neutrophils # 16.9 H (1.3-7.7) k/uL Lymphocytes # 0.7 L (1.0-4.8) k/uL Monocytes # 1.3 H (0-1.0) k/uL ABG pH 7.34 L (7.35-7.45) ABG pO2 >400 H (83-108) mmHg ABG HCO3 20 L (21-25) mmol/L ABG O2 Saturation 99.6 H (94-97) % Sodium 136 L (137-145) mmol/L Chloride 109 H (98-107) mmol/L Carbon Dioxide 16 L (22-30) mmol/L Glucose 186 H (74-99) mg/dL POC Glucose (mg/dL) (70-110) mg/dL Calcium 7.7 L (8.4-10.2) mg/dL Crossmatch 05/30/23 05/30/23 05/30/23 Range/Units 03:42 03:42 05:20 WBC 20.7 H (3.8-10.6) k/uL RBC (4.30-5.90) m/uL Hgb (13.0-17.5) gm/dL Hct (39.0-53.0) % MCHC (31.0-37.0) g/dL Neutrophils # 18.1 H (1.3-7.7) k/uL Lymphocytes # 0.9 L (1.0-4.8) k/uL Monocytes # 1.4 H (0-1.0) k/uL ABG pH 7.33 L (7.35-7.45) ABG pO2 202 H (83-108) mmHg ABG HCO3 (21-25) mmol/L ABG O2 Saturation 99.1 H (94-97) % Sodium (137-145) mmol/L Chloride 108 H (98-107) mmol/L Carbon Dioxide 19 L (22-30) mmol/L Glucose 171 H (74-99) mg/dL POC Glucose (mg/dL) (70-110) mg/dL Calcium 7.8 L (8.4-10.2) mg/dL Crossmatch 05/30/23 Range/Units 05:51 WBC (3.8-10.6) k/uL RBC (4.30-5.90) m/uL Hgb (13.0-17.5) gm/dL Hct (39.0-53.0) % MCHC (31.0-37.0) g/dL Neutrophils # (1.3-7.7) k/uL Lymphocytes # (1.0-4.8) k/uL Monocytes # (0-1.0) k/uL ABG pH (7.35-7.45) ABG pO2 (83-108) mmHg ABG HCO3 (21-25) mmol/L ABG O2 Saturation (94-97) % Sodium (137-145) mmol/L Chloride (98-107) mmol/L Carbon Dioxide (22-30) mmol/L Glucose (74-99) mg/dL POC Glucose (mg/dL) 154 H (70-110) mg/dL Calcium (8.4-10.2) mg/dL Crossmatch Thrombosis Risk Factor Assmnt - Choose All That Apply Each Factor Represents 1 point: Obesity (BMI >25) Other Risk Factors: Yes Each Risk Factor Represents 2 Points: Major surgery Each Risk Factor Represents 3 Points: Age 75 years or older Other congenital or acquired thrombophilia - If yes, enter type in comment: No Thrombosis Risk Factor Assessment Total Risk Factor Score: 6 Thrombosis Risk Factor Assessment Level: High Risk Assessment and Plan Plan: Lower extremity claudication, status post right femoral to below knee popliteal bypass Right groin hematoma, status post exploration with hematoma evacuation Underlying history of hypertension Underlying history of hyperlipidemia Underlying history of COPD Underlying history of spinal stenosis with chronic back pain At this time patient is intubated sedated maintained on mechanical ventilation Pulmonary critical care following Possible extubation today Will follow closely during this admission
[2023-05-30] MEDS ORDERED: FUROSEMIDE 10 MG/ML 4 ML VIAL IV STA (14:08)
[2023-05-30] MEDS: CLEVIDIPINE BUTYRATE 25 MG in EMPTY BAG 1 BAG IV SCH ×2 (14:27→19:59)
[2023-05-30 17:38] LABS: Glucose,Whole Blood 166 mg/dL (70-110)
[2023-05-30] MEDS: ASPIRIN 81 MG PO SCH (18:52)
[2023-05-30] MEDS: NOREPINEPHRINE 4 MG in SODIUM CHLORIDE 0.9% 250 ML IV SCH (19:58)
[2023-05-30 20:25] LABS: Glucose,Whole Blood 136 mg/dL (70-110)
[2023-05-31 00:11] LABS: Glucose,Whole Blood 158 mg/dL (70-110)
[2023-05-31 04:35] LABS: African American GFR (CKD) 68 (>60 ml/min/1.73 sqM); Anion Gap 7 mmol/L; Blood Urea Nitrogen 20 mg/dL (9-20); Calcium 7.6 mg/dL (8.4-10.2); Carbon Dioxide 22 mmol/L (22-30); Chloride 108 mmol/L (98-107); Glucose 126 mg/dL (74-99); Non-African American GFR(CKD) 59 (>60 ml/min/1.73 sqM); Potassium 4.2 mmol/L (3.5-5.1); Sodium 137 mmol/L (137-145)
[2023-05-31 06:46] LABS: Glucose,Whole Blood 122 mg/dL (70-110)
[2023-05-31 07:03] LABS: Basophils # (A) 0.1 k/uL (0-0.2); Basophils % (A) 0 %; Eosinophils # (A) 0.1 k/uL (0-0.7); Eosinophils % (A) 1 %; HCT 31.9 % (39.0-53.0); HGB 10.9 gm/dL (13.0-17.5); Hypochromasia Moderate; Lymphocytes # (A) 0.9 k/uL (1.0-4.8); Lymphocytes % (A) 5 %; MCH 30.3 pg (25.0-35.0); Mean Platelet Volume 11.1; Monocytes # (A) 1.5 k/uL (0-1.0); Monocytes % (A) 9 %; Neutrophils # (A) 14.7 k/uL (1.3-7.7); Neutrophils % (A) 84 %; Platelet Count 152 k/uL (150-450); Poikilocytosis Slight; RBC 3.58 m/uL (4.30-5.90); RDW 15.5 % (11.5-15.5); WBC 17.6 k/uL (3.8-10.6)
[2023-05-31] MEDS: HYDROcodone/APAP 5-325MG 1 EACH TAB PO PRN ×2 (08:15→23:31)
[2023-05-31] MEDS: GABAPENTIN 300 MG CAP PO SCH ×3 (08:15→20:02)
[2023-05-31] MEDS: CLOPIDOGREL 75 MG TAB PO SCH (08:15)
[2023-05-31] MEDS: hydroCHLOROthiazide 12.5 MG CAP PO SCH (08:15)
[2023-05-31] MEDS: SODIUM CHLORIDE 0.9% 1,000 ML IV SCH ×2 (08:39→20:01)
[2023-05-31] MEDS: LACTATED RINGERS 1,000 ML IV SCH (08:40)
[2023-05-31] MEDS: LATANOPROST 0.005% OPHTH DROPS 2.5 ML BTL BOTH EYES SCH (08:40)
[2023-05-31] MEDS: DORZOLAMIDE-TIMOLOL 2.23%/0.68 10ML BTL BOTH EYES SCH ×2 (08:47→20:01)
--- NOTE | 2023-05-31 09:36 | P.PN ---
Subjective Progress Note Date: 05/31/23 Patient seen and examined. No complaints. States last it was the first time he was able to sleep in bed flat on his back rather than with his leg down. Only complaint of mild headache Objective - Vital Signs Vital signs: Vital Signs Temp 98.4 F 05/31/23 08:00 Pulse 75 05/31/23 09:00 Resp 16 05/31/23 09:00 BP 138/44 05/31/23 09:00 Pulse Ox 96 05/31/23 09:00 FiO2 50 05/30/23 12:02 Intake & Output 05/30/23 05/31/23 05/31/23 18:59 06:59 18:59 Intake Total 6877.415 2407.800 360 Output Total 1215 675 130 Balance -67.500 838.800 230 Weight 84.1 kg Intake: IV 960 960 240 Sodium Chloride 0.9% 1, 960 960 240 000 ml @ 80 mls/hr IV . [id number] [facility] Rx#:[id number] Intake, IV Titration 87.500 13.800 Amount Clevidipine Butyrate 25 26.701 13.800 mg In Empty Bag 1 bag @ 1 MG/HR 2 mls/hr IV .Q24H [facility] Rx#:[id number] propofoL 1,000 mg In 60.799 Empty Bag 1 bag @ 15 MCG/ KG/MIN 6.768 mls/hr IV . [id number] [facility] Rx#:[id number] Oral 100 540 120 Output: Drainage 150 60 20 Right Groin 150 60 20 Urine 1065 615 110 Other: Voiding Method Indwelling Catheter Indwelling Catheter # Bowel Movements 1 1 - Exam Patient seen and examined. Awake and alert. Right drain dressing in place. No hematoma. JOSE ANGEL in place with serosanguineous drainage. Palpable bypass at the knee. DP signal noted. Foot is warm. Mildly delayed capillary refill. Motor sensory intact. - Labs CBC & Chem 7: 05/31/23 04:04 05/31/23 04:04 Labs: Abnormal Lab Results - Last 24 Hours (Table) 05/30/23 05/30/23 05/30/23 Range/Units 11:47 11:48 17:37 WBC (3.8-10.6) k/uL RBC (4.30-5.90) m/uL Hgb (13.0-17.5) gm/dL Hct (39.0-53.0) % Neutrophils # (1.3-7.7) k/uL Lymphocytes # (1.0-4.8) k/uL Monocytes # (0-1.0) k/uL Chloride (98-107) mmol/L Glucose (74-99) mg/dL POC Glucose (mg/dL) 158 H 120 H 166 H (70-110) mg/dL Calcium (8.4-10.2) mg/dL 05/30/23 05/31/23 05/31/23 Range/Units 20:23 00:10 04:04 WBC 17.6 H (3.8-10.6) k/uL RBC 3.58 L (4.30-5.90) m/uL Hgb 10.9 L (13.0-17.5) gm/dL Hct 31.9 L (39.0-53.0) % Neutrophils # 14.7 H (1.3-7.7) k/uL Lymphocytes # 0.9 L (1.0-4.8) k/uL Monocytes # 1.5 H (0-1.0) k/uL Chloride (98-107) mmol/L Glucose (74-99) mg/dL POC Glucose (mg/dL) 136 H 158 H (70-110) mg/dL Calcium (8.4-10.2) mg/dL 05/31/23 05/31/23 Range/Units 04:04 06:45 WBC (3.8-10.6) k/uL RBC (4.30-5.90) m/uL Hgb (13.0-17.5) gm/dL Hct (39.0-53.0) % Neutrophils # (1.3-7.7) k/uL Lymphocytes # (1.0-4.8) k/uL Monocytes # (0-1.0) k/uL Chloride 108 H (98-107) mmol/L Glucose 126 H (74-99) mg/dL POC Glucose (mg/dL) 122 H (70-110) mg/dL Calcium 7.6 L (8.4-10.2) mg/dL Assessment and Plan Assessment: POD 2 right femoral below knee bypass with takeback Femoral occlusive disease Disabling claudication/ Rest pain Maykel 4 Right groin hematoma, hemorrhagic shock secondary to bleed from bypass- resolved . Plan: Continue supportive care. Continue aspirin, Plavix and statin. Continue neurovascular checks. Increase activity. Up to chair with assistance.. PTOT evaluate and treat.
--- NOTE | 2023-05-31 10:41 | P.PN ---
Subjective Progress Note Date: 05/31/23 Saravanan Sharma, is an 82-year-old male who was admitted to [facility] by Dr. David, and underwent right femoral endarterectomy with patch angioplasty, and right femoral to below knee popliteal in situ bypass, patient was transferred to telemetry floor post surgery, he developed right groin hematoma, he was taken back to operating room, and underwent right groin exploration with hematoma evacuation, saphenous vein bypass bleed repair and open thrombectomy of the right femoral and saphenous vein bypass. Patient was transferred to intensive care unit post surgery, he is intubated sedated maintained on mechanical ventilation at this time. Medical consultation was requested. Past medical history significant for history of hypertension, history of hyperlipidemia, history of peripheral vascular disease, history of spinal stenosis, history of COPD, history of glaucoma, history of coronary artery disease with history of angioplasty and stent placement. On 05/31/2023 patient's remains in the intensive care unit patient is currently on room air was extubated yesterday. Current vital signs temp 98.4, heart rate 64, respiratory rate 18, blood pressure 1 5457 with a pulse ox 97% on room air. Objective - Vital Signs Vital signs: Vital Signs Temp 98.4 F 05/31/23 08:00 Pulse 75 05/31/23 09:00 Resp 16 05/31/23 09:00 BP 138/44 05/31/23 09:00 Pulse Ox 96 05/31/23 09:00 FiO2 50 05/30/23 12:02 Intake & Output 05/30/23 05/31/23 05/31/23 18:59 06:59 18:59 Intake Total 1158.468 5984.800 360 Output Total 1215 675 130 Balance -67.500 838.800 230 Weight 84.1 kg Intake: IV 960 960 240 Sodium Chloride 0.9% 1, 960 960 240 000 ml @ 80 mls/hr IV . [id number] [facility] Rx#:[id number] Intake, IV Titration 87.500 13.800 Amount Clevidipine Butyrate 25 26.701 13.800 mg In Empty Bag 1 bag @ 1 MG/HR 2 mls/hr IV .Q24H [facility] Rx#:[id number] propofoL 1,000 mg In 60.799 Empty Bag 1 bag @ 15 MCG/ KG/MIN 6.768 mls/hr IV . [id number] [facility] Rx#:[id number] Oral 100 540 120 Output: Drainage 150 60 20 Right Groin 150 60 20 Urine 1065 615 110 Other: Voiding Method Indwelling Catheter Indwelling Catheter Indwelling Catheter # Bowel Movements 1 1 - Exam Patient is intubated sedated maintained on mechanical ventilation HEENT head normocephalic and atraumatic Neck is supple no JVD no goiter no lymphadenopathy Chest exam reveals a scattered crackles bilaterally no wheezing Cardiac exam reveals regular heart sounds no gallops no murmurs Abdomen is soft nontender no organomegaly with normal bowel sounds Extremity exam reveals no edema no cyanosis or clubbing pulses are palpable - Labs CBC & Chem 7: 05/31/23 04:04 05/31/23 04:04 Labs: Abnormal Lab Results - Last 24 Hours (Table) 05/30/23 05/30/23 05/30/23 Range/Units 11:47 11:48 17:37 WBC (3.8-10.6) k/uL RBC (4.30-5.90) m/uL Hgb (13.0-17.5) gm/dL Hct (39.0-53.0) % Neutrophils # (1.3-7.7) k/uL Lymphocytes # (1.0-4.8) k/uL Monocytes # (0-1.0) k/uL Chloride (98-107) mmol/L Glucose (74-99) mg/dL POC Glucose (mg/dL) 158 H 120 H 166 H (70-110) mg/dL Calcium (8.4-10.2) mg/dL 05/30/23 05/31/23 05/31/23 Range/Units 20:23 00:10 04:04 WBC 17.6 H (3.8-10.6) k/uL RBC 3.58 L (4.30-5.90) m/uL Hgb 10.9 L (13.0-17.5) gm/dL Hct 31.9 L (39.0-53.0) % Neutrophils # 14.7 H (1.3-7.7) k/uL Lymphocytes # 0.9 L (1.0-4.8) k/uL Monocytes # 1.5 H (0-1.0) k/uL Chloride (98-107) mmol/L Glucose (74-99) mg/dL POC Glucose (mg/dL) 136 H 158 H (70-110) mg/dL Calcium (8.4-10.2) mg/dL 05/31/23 05/31/23 Range/Units 04:04 06:45 WBC (3.8-10.6) k/uL RBC (4.30-5.90) m/uL Hgb (13.0-17.5) gm/dL Hct (39.0-53.0) % Neutrophils # (1.3-7.7) k/uL Lymphocytes # (1.0-4.8) k/uL Monocytes # (0-1.0) k/uL Chloride 108 H (98-107) mmol/L Glucose 126 H (74-99) mg/dL POC Glucose (mg/dL) 122 H (70-110) mg/dL Calcium 7.6 L (8.4-10.2) mg/dL Assessment and Plan Plan: Lower extremity claudication, status post right femoral to below knee popliteal bypass Right groin hematoma, status post exploration with hematoma evacuation Underlying history of hypertension Underlying history of hyperlipidemia Underlying history of COPD Underlying history of spinal stenosis with chronic back pain Pulmonary critical care following Extubated 05/30/2023 Will follow closely during this admission
[2023-05-31] MEDS ORDERED: DEXTROSE 50% SYRINGE 50 ML IVP PRN ×2 (10:55)
[2023-05-31 11:34] LABS: Glucose,Whole Blood 116 mg/dL (70-110)
[2023-05-31] MEDS: INSULIN ASPART (NovoLOG) 100 UNIT/ML VIAL SQ SCH ×3 (11:50→20:01)
[2023-05-31 16:27] LABS: Glucose,Whole Blood 108 mg/dL (70-110)
[2023-05-31] MEDS: ASPIRIN 81 MG PO SCH (18:54)
[2023-05-31] MEDS: NOREPINEPHRINE 4 MG in SODIUM CHLORIDE 0.9% 250 ML IV SCH (19:03)
[2023-05-31 20:01] LABS: Glucose,Whole Blood 101 mg/dL (70-110)
[2023-05-31] MEDS: ATORVASTATIN 20 MG TAB PO SCH (20:01)
[2023-06-01 04:46] LABS: Basophils % (A) 0 %; Eosinophils # (A) 0.2 k/uL (0-0.7); Eosinophils % (A) 3 %; HCT 26.5 % (39.0-53.0); Hypochromasia Moderate; Lymphocytes # (A) 0.8 k/uL (1.0-4.8); Lymphocytes % (A) 9 %; MCH 28.9 pg (25.0-35.0); MCHC 32.6 g/dL (31.0-37.0); MCV 88.7 fL (80.0-100.0); Mean Platelet Volume 9.3; Monocytes # (A) 0.7 k/uL (0-1.0); Monocytes % (A) 8 %; Neutrophils % (A) 78 %; Platelet Count 157 k/uL (150-450); Poikilocytosis Moderate; RBC 2.98 m/uL (4.30-5.90); RDW 15.5 % (11.5-15.5)
[2023-06-01 04:55] LABS: HGB 8.6 gm/dL (13.0-17.5)
[2023-06-01 05:11] LABS: ALT 12 U/L (4-49); AST 23 U/L (17-59); African American GFR (CKD) 78 (>60 ml/min/1.73 sqM); Albumin 2.5 g/dL (3.5-5.0); Alkaline Phosphatase 51 U/L (38-126); Anion Gap 6 mmol/L; Blood Urea Nitrogen 20 mg/dL (9-20); Calcium 7.4 mg/dL (8.4-10.2); Carbon Dioxide 24 mmol/L (22-30); Chloride 107 mmol/L (98-107); Glucose 97 mg/dL (74-99); Non-African American GFR(CKD) 67 (>60 ml/min/1.73 sqM); Potassium 3.1 mmol/L (3.5-5.1); Sodium 137 mmol/L (137-145); Total Bilirubin 0.8 mg/dL (0.2-1.3); Total Protein 4.6 g/dL (6.3-8.2)
[2023-06-01] MEDS ORDERED: Potassium Replacement Protocol 1 EACH MISC MISCELLANE PRN ×3 (05:36→11:03)
[2023-06-01] MEDS: POTASSIUM CHLORIDE ER 20 MEQ TAB.ER PO SCH ×4 (05:51→14:55)
[2023-06-01] MEDS: INSULIN ASPART (NovoLOG) 100 UNIT/ML VIAL SQ SCH ×4 (06:55→21:26)
[2023-06-01 06:56] LABS: Glucose,Whole Blood 97 mg/dL (70-110)
[2023-06-01] MEDS: HYDROcodone/APAP 5-325MG 1 EACH TAB PO PRN ×2 (08:18→23:20)
[2023-06-01] MEDS: hydroCHLOROthiazide 12.5 MG CAP PO SCH (08:20)
[2023-06-01] MEDS: GABAPENTIN 300 MG CAP PO SCH ×3 (08:20→21:26)
[2023-06-01] MEDS: CLOPIDOGREL 75 MG TAB PO SCH (08:20)
[2023-06-01] MEDS: LACTATED RINGERS 1,000 ML IV SCH (08:22)
[2023-06-01] MEDS: DORZOLAMIDE-TIMOLOL 2.23%/0.68 10ML BTL BOTH EYES SCH ×2 (09:49→21:27)
[2023-06-01] MEDS: SODIUM CHLORIDE 0.9% 1,000 ML IV SCH (10:06)
[2023-06-01 11:21] LABS: Glucose,Whole Blood 112 mg/dL (70-110)
--- NOTE | 2023-06-01 11:21 | P.PN ---
Subjective Progress Note Date: 06/01/23 82-year-old male who underwent a right femoral endarterectomy with patch angioplasty, as well as a selective right lower extremity angiogram, and right femoral to [id number] popliteal in situ bypass. This procedure took place on May 29. Because of bleeding in the right groin, the patient was back to the operating room, early in the morning on May 30, to have a right groin exploration with hematoma evacuation, control of bleeding, saphenous vein bypass leak repair, and open thrombectomy of the right femoral saphenous vein bypass to distal popliteal artery. The patient came back on the mechanical ventilator. For that reason, I was consulted. Currently, the patient is on assist control, rate 10, tidal volume 450, FiO2 50%, and 5 of PEEP. Blood gases show pO2 of 202, pCO2 41, and pH is 7.33. The blood gases consistent with a mild metabolic acidosis. The patient is also getting saline at 80 mL an hour, and propofol at 35 mcg/kg/m. White count 20.7, hemoglobin 13.5, hematocrit 40.5, and platelet count 180,000. Sodium 137, potassium 4.2, chlorides 108, CO2 19, with a normal BUN and creatinine. Chest x-ray is unremarkable. On today's evaluation of 06/01/2023, the patient is being seen for a follow-up. The patient was extubated yesterday without any major difficulties and the patient is currently awake and alert and sitting up on a chair and is currently on room air oxygen. As stated earlier, the patient underwent a right femoral endarterectomy and subsequently due to complications of bleeding, the patient had a reexploration, evacuation of hematoma, saphenous vein bypass leak was repaired an open thrombectomy of the right femoral . saphenous vein bypass and distal popliteal artery was done. The patient is currently hemodynamically stable. No signs of any active leading for now. The patient's hemoglobin is stable at 8.6. Platelet count is also stable at 157. The patient received a total of 4 units of packed RBC during this current hospitalization. The BUN is at the patient is currently on IV fluids with normal saline at rate of 80 mL an hour. He remains on a combination of aspirin and Plavix. He has adequate pulses in his lower extremity is bilaterally. Surgical wound is dry clean and intact. 20 with a creatinine of 1 and sodium levels of 137. Potassium level was 3.1 and has been replaced.the patient continues to have lower extremity edema worse on the right. The patient has a JOSE ANGEL drain that his putting out approximately 200 mL on a 24-hour. Noted the patient also has history of coronary artery disease with previous coronary stenting. He has chronic peripheral vascular disease with previous bypass involving the lower extremities bilaterally. He has sciatica. No history of any chronic lung disease. Noted the patient also has severe peripheral vascular disease, has undergone previous fem-pop bypass surgery on the left and he has undergone previous stenting involving left lower extremity along with angioplasties and he presented with critical ischemia to the right lower extremity with claudication requiring femoral endarterectomy Objective - Vital Signs Vital signs: Vital Signs Temp 98.1 F 06/01/23 08:00 Pulse 60 06/01/23 11:00 Resp 13 06/01/23 11:00 BP 139/49 06/01/23 11:00 Pulse Ox 97 06/01/23 11:00 FiO2 50 05/30/23 12:02 Intake & Output 05/31/23 06/01/23 06/01/23 18:59 06:59 18:59 Intake Total 1440 960 604 Output Total 590 605 235 Balance 850 355 369 Intake: IV 960 960 320 Sodium Chloride 0.9% 1, 960 960 320 000 ml @ 80 mls/hr IV . [id number] [facility] Rx#:[id number] Oral 480 Blood Product 0 284 Rc Pheresis As-3 Unit 0 284 [id number] Output: Drainage 80 120 20 Right Groin 80 120 20 Urine 510 485 215 Other: Voiding Method Indwelling Catheter Indwelling Catheter Indwelling Catheter # Bowel Movements 1 1 - Exam No acute distress, awake and alert and the patient is currently on room air oxygen, following commands and answering questions appropriately Head exam was generally normal. There was no scleral icterus or corneal arcus. Mucous membranes were moist. HEENT examination is grossly unremarkable. Neck supple. Full range of motion. No adenopathy thyromegaly or neck vein distention. Cardiovascular examination reveals regular rhythm rate. S1-S2 normal. No S3 or S4. No discernible murmur noted. Lungs reveal clear breath sounds. Breath sounds are equal bilaterally. No adventitious lung sounds including wheezes rhonchi or crackles. Abdomen soft bowel sounds are heard. No masses or tenderness. Extremities are intact. No cyanosis clubbing , the patient has a soft hematoma in his right groin area, the surgical wound site is clean, no active drainage and the patient has a JOSE ANGEL drain in place which is putting out bloody output in the order of 200 mL over the past 24 hours Skin is without rash or lesion. Neurologically, the patient is awake and alert and the patient does not have any focal neurological deficit. Cranial nerves are essentially intact. - Labs CBC & Chem 7: 06/01/23 04:21 06/01/23 09:00 Labs: Abnormal Lab Results - Last 24 Hours (Table) 05/26/23 05/29/23 05/31/23 Range/Units 09:22 20:43 11:32 RBC (4.30-5.90) m/uL Hgb (13.0-17.5) gm/dL Hct (39.0-53.0) % Lymphocytes # (1.0-4.8) k/uL Potassium (3.5-5.1) mmol/L POC Glucose (mg/dL) 116 H (70-110) mg/dL Calcium (8.4-10.2) mg/dL Total Protein (6.3-8.2) g/dL Albumin (3.5-5.0) g/dL Crossmatch See Detail See Detail 06/01/23 06/01/23 06/01/23 Range/Units 04:21 04:21 09:00 RBC 2.98 L (4.30-5.90) m/uL Hgb 8.6 L D (13.0-17.5) gm/dL Hct 26.5 L (39.0-53.0) % Lymphocytes # 0.8 L (1.0-4.8) k/uL Potassium 3.1 L 3.3 L (3.5-5.1) mmol/L POC Glucose (mg/dL) (70-110) mg/dL Calcium 7.4 L (8.4-10.2) mg/dL Total Protein 4.6 L (6.3-8.2) g/dL Albumin 2.5 L (3.5-5.0) g/dL Crossmatch Assessment and Plan Plan: Postop day #2, status post right femoral endarterectomy with patch angioplasty, and selective right lower extremity angiogram. Postop day #1, right groin exploration, with hematoma evacuation, repair saphenous vein bypass, an open thrombectomy. Acute hypoxic respiratory failure, post intubation mechanical ventilation and subsequent extubation the patient is currently on room air oxygen Severe peripheral vascular disease with previous fem-pop bypass surgery in the left lower extremity along with angioplasties and stenting and the patient critical ischemia with claudication involving the right lower extremity requiring vascular intervention. Coronary artery disease with previous coronary angioplasty and stenting History of hyperlipidemia. History of deep vein thrombosis. History of gastroesophageal reflux disease. History of thyroid nodule. Vitamin D deficiency. Lower extremity edema, right more than left Blood loss anemia and the patient required a total of 4 units of packed RBC transfusion and the patient has a stable hemoglobin for now Plan Monitor the output from the JOSE ANGEL drain Monitor hemoglobin Provide incentive spirometer Pulmonary toileting Continue aspirin and Plavix Dropped The IV Fluids to 40 ML an Hour Home medications have been resumed We'll continue to follow the patient can be transferred out of the intensive care unit. Vascular surgeries on the case.
--- NOTE | 2023-06-01 12:02 | P.PN ---
Subjective Progress Note Date: 06/01/23 Patient was seen and examined today in the ICU. He is up in the reclining chair. He states overall he is feeling better. He is getting some charley horses in his right calf. Varner catheter is in place. JOSE ANGEL drain in place with approximately 20 mL serosanguineous drainage. His hemoglobin this morning 8.6. He is receiving 1 unit of blood. Objective - Vital Signs Vital signs: Vital Signs Temp 98.1 F 06/01/23 08:00 Pulse 66 06/01/23 09:00 Resp 13 06/01/23 09:00 BP 139/44 06/01/23 09:00 Pulse Ox 97 06/01/23 09:00 FiO2 50 05/30/23 12:02 Intake & Output 05/31/23 06/01/23 06/01/23 18:59 06:59 18:59 Intake Total 1440 960 444 Output Total 590 605 125 Balance 850 355 319 Intake: IV 960 960 160 Sodium Chloride 0.9% 1, 960 960 160 000 ml @ 80 mls/hr IV . [id number] [facility] Rx#:[id number] Oral 480 Blood Product 0 284 Rc Pheresis As-3 Unit 0 284 [id number] Output: Drainage 80 120 20 Right Groin 80 120 20 Urine 510 485 105 Other: Voiding Method Indwelling Catheter Indwelling Catheter # Bowel Movements 1 1 - Exam General appearance: The patient is alert, oriented, appears in no acute distress. HET: Head is normocephalic and atraumatic. Neck: Supple. Heart: Regular. Lungs: Equal expansion, normal respiratory effort. Abdomen: Soft, nondistended. Extremities: Normal skin color and turgor. Right groin with Prevena dressing in place with good suction, JOSE ANGEL drain in place with serosanguineous drainage, soft. Palpable bypass, and DP signal noted. Foot is warm, sensorimotor intact. Neurological: No focal deficits. Strength and sensation are grossly intact. - Labs CBC & Chem 7: 06/01/23 04:21 06/01/23 09:00 Labs: Abnormal Lab Results - Last 24 Hours (Table) 05/26/23 05/29/23 05/31/23 Range/Units 09:22 20:43 11:32 RBC (4.30-5.90) m/uL Hgb (13.0-17.5) gm/dL Hct (39.0-53.0) % Lymphocytes # (1.0-4.8) k/uL Potassium (3.5-5.1) mmol/L POC Glucose (mg/dL) 116 H (70-110) mg/dL Calcium (8.4-10.2) mg/dL Total Protein (6.3-8.2) g/dL Albumin (3.5-5.0) g/dL Crossmatch See Detail See Detail 06/01/23 06/01/23 06/01/23 Range/Units 04:21 04:21 09:00 RBC 2.98 L (4.30-5.90) m/uL Hgb 8.6 L D (13.0-17.5) gm/dL Hct 26.5 L (39.0-53.0) % Lymphocytes # 0.8 L (1.0-4.8) k/uL Potassium 3.1 L 3.3 L (3.5-5.1) mmol/L POC Glucose (mg/dL) (70-110) mg/dL Calcium 7.4 L (8.4-10.2) mg/dL Total Protein 4.6 L (6.3-8.2) g/dL Albumin 2.5 L (3.5-5.0) g/dL Crossmatch Assessment and Plan Assessment: 1. POD #3 right femoral below knee bypass with takeback 2. Femoral occlusive disease 3. Disabling claudication/ Rest pain Maykel 4 4. Right groin hematoma, hemorrhagic shock secondary to bleed from bypass- resolved. Plan: 1. Continue supportive care. 2. Continue aspirin, Plavix and statin. 3. PT/OT on consult. 4. Increase activity 5. Incentive spirometer to bedside 6. Discontinue Varner catheter 7. Patient may be transferred to cardiac stepdown unit Hemoglobin stable The impression and plan of care has been dictated as directed. Dr. Varner I performed a history and examination of this patient, discussed the same with the dictator. I agree with the dictator's note ,documented as a scribe. Any additional findings or plans will be noted.
[2023-06-01] MEDS: LATANOPROST 0.005% OPHTH DROPS 2.5 ML BTL BOTH EYES SCH (14:07)
[2023-06-01 14:55] LABS: HGB 10.8 gm/dL (13.0-17.5); Hypochromasia Moderate; MCH 29.2 pg (25.0-35.0); MCHC 32.8 g/dL (31.0-37.0); MCV 89.3 fL (80.0-100.0); Platelet Count 154 k/uL (150-450); Poikilocytosis Slight; RDW 15.4 % (11.5-15.5); WBC 10.2 k/uL (3.8-10.6)
[2023-06-01 16:03] LABS: Glucose,Whole Blood 108 mg/dL (70-110)
--- NOTE | 2023-06-01 16:46 | P.PN ---
Subjective Progress Note Date: 06/01/23 Saravanan Sharma, is an 82-year-old male who was admitted to [facility] by Dr. David, and underwent right femoral endarterectomy with patch angioplasty, and right femoral to below knee popliteal in situ bypass, patient was transferred to telemetry floor post surgery, he developed right groin hematoma, he was taken back to operating room, and underwent right groin exploration with hematoma evacuation, saphenous vein bypass bleed repair and open thrombectomy of the right femoral and saphenous vein bypass. Patient was transferred to intensive care unit post surgery, he is intubated sedated maintained on mechanical ventilation at this time. Medical consultation was requested. Past medical history significant for history of hypertension, history of hyperlipidemia, history of peripheral vascular disease, history of spinal stenosis, history of COPD, history of glaucoma, history of coronary artery disease with history of angioplasty and stent placement. On 05/31/2023 patient's remains in the intensive care unit patient is currently on room air was extubated yesterday. Current vital signs temp 98.4, heart rate 64, respiratory rate 18, blood pressure 1 5457 with a pulse ox 97% on room air. On 06/01/2023 patient was seen and examined in the ICU he is alert and oriented 3 in no apparent distress there is no fever or chills no headache or dizziness no chest pain no shortness of breath no cough no nausea or vomiting no abdominal pain no diarrhea and no urinary symptoms. Vital exam reveals a temperature of 97.5 pulse 62 respirations 16 blood pressure 141/46 pulse ox 99% on room air Objective - Vital Signs Vital signs: Vital Signs Temp 98.1 F 06/01/23 08:00 Pulse 98 06/01/23 08:33 Resp 18 06/01/23 08:33 BP 139/44 06/01/23 08:33 Pulse Ox 96 06/01/23 08:33 FiO2 50 05/30/23 12:02 Intake & Output 05/31/23 06/01/23 06/01/23 18:59 06:59 18:59 Intake Total 1440 960 444 Output Total 590 605 125 Balance 850 355 319 Intake: IV 960 960 160 Sodium Chloride 0.9% 1, 960 960 160 000 ml @ 80 mls/hr IV . [id number] [facility] Rx#:[id number] Oral 480 Blood Product 0 284 Rc Pheresis As-3 Unit 0 284 [id number] Output: Drainage 80 120 20 Right Groin 80 120 20 Urine 510 485 105 Other: Voiding Method Indwelling Catheter Indwelling Catheter # Bowel Movements 1 1 - Exam Patient is intubated sedated maintained on mechanical ventilation HEENT head normocephalic and atraumatic Neck is supple no JVD no goiter no lymphadenopathy Chest exam reveals a scattered crackles bilaterally no wheezing Cardiac exam reveals regular heart sounds no gallops no murmurs Abdomen is soft nontender no organomegaly with normal bowel sounds Extremity exam reveals no edema no cyanosis or clubbing pulses are palpable - Labs CBC & Chem 7: 06/01/23 14:41 06/01/23 09:00 Labs: Abnormal Lab Results - Last 24 Hours (Table) 05/26/23 05/29/23 05/31/23 Range/Units 09:22 20:43 11:32 RBC (4.30-5.90) m/uL Hgb (13.0-17.5) gm/dL Hct (39.0-53.0) % Lymphocytes # (1.0-4.8) k/uL Potassium (3.5-5.1) mmol/L POC Glucose (mg/dL) 116 H (70-110) mg/dL Calcium (8.4-10.2) mg/dL Total Protein (6.3-8.2) g/dL Albumin (3.5-5.0) g/dL Crossmatch See Detail See Detail 06/01/23 06/01/23 Range/Units 04:21 04:21 RBC 2.98 L (4.30-5.90) m/uL Hgb 8.6 L D (13.0-17.5) gm/dL Hct 26.5 L (39.0-53.0) % Lymphocytes # 0.8 L (1.0-4.8) k/uL Potassium 3.1 L (3.5-5.1) mmol/L POC Glucose (mg/dL) (70-110) mg/dL Calcium 7.4 L (8.4-10.2) mg/dL Total Protein 4.6 L (6.3-8.2) g/dL Albumin 2.5 L (3.5-5.0) g/dL Crossmatch Assessment and Plan Plan: Lower extremity claudication, status post right femoral to below knee popliteal bypass Right groin hematoma, status post exploration with hematoma evacuation Underlying history of hypertension Underlying history of hyperlipidemia Underlying history of COPD Underlying history of spinal stenosis with chronic back pain Pulmonary critical care following Extubated 05/30/2023 Will follow closely during this admission
[2023-06-01] MEDS: ASPIRIN 81 MG PO SCH (17:23)
[2023-06-01 20:04] LABS: Glucose,Whole Blood 123 mg/dL (70-110)
[2023-06-01] MEDS: ATORVASTATIN 20 MG TAB PO SCH (21:26)
[2023-06-02] MEDS: HYDROcodone/APAP 5-325MG 1 EACH TAB PO PRN ×2 (04:59→12:39)
[2023-06-02 06:38] LABS: Glucose,Whole Blood 102 mg/dL (70-110)
[2023-06-02] MEDS: INSULIN ASPART (NovoLOG) 100 UNIT/ML VIAL SQ SCH ×4 (06:44→21:57)
[2023-06-02 06:49] LABS: ALT 15 U/L (4-49); AST 29 U/L (17-59); African American GFR (CKD) >90 (>60 ml/min/1.73 sqM); Alkaline Phosphatase 96 U/L (38-126); Anion Gap 5 mmol/L; Blood Urea Nitrogen 16 mg/dL (9-20); Calcium 7.8 mg/dL (8.4-10.2); Carbon Dioxide 23 mmol/L (22-30); Chloride 107 mmol/L (98-107); Glucose 104 mg/dL (74-99); Non-African American GFR(CKD) 81 (>60 ml/min/1.73 sqM); Sodium 135 mmol/L (137-145); Total Bilirubin 1.1 mg/dL (0.2-1.3); Total Protein 5.4 g/dL (6.3-8.2)
[2023-06-02 07:54] LABS: Basophils % (A) 0 %; Eosinophils # (A) 0.5 k/uL (0-0.7); Eosinophils % (A) 5 %; HCT 32.5 % (39.0-53.0); HGB 10.8 gm/dL (13.0-17.5); Hypochromasia Moderate; Lymphocytes # (A) 0.8 k/uL (1.0-4.8); Lymphocytes % (A) 8 %; MCH 29.8 pg (25.0-35.0); MCHC 33.3 g/dL (31.0-37.0); MCV 89.5 fL (80.0-100.0); Mean Platelet Volume 9.9; Monocytes # (A) 1.5 k/uL (0-1.0); Monocytes % (A) 15 %; Neutrophils # (A) 6.7 k/uL (1.3-7.7); Neutrophils % (A) 68 %; Poikilocytosis Moderate; RBC 3.64 m/uL (4.30-5.90); RDW 15.8 % (11.5-15.5); WBC 9.9 k/uL (3.8-10.6)
[2023-06-02 08:24] LABS: Platelet Count 180 k/uL (150-450)
--- NOTE | 2023-06-02 09:23 | P.PN ---
Subjective Progress Note Date: 06/02/23 82-year-old male who underwent a right femoral endarterectomy with patch angioplasty, as well as a selective right lower extremity angiogram, and right femoral to [id number] popliteal in situ bypass. This procedure took place on May 29. Because of bleeding in the right groin, the patient was back to the operating room, early in the morning on May 30, to have a right groin exploration with hematoma evacuation, control of bleeding, saphenous vein bypass leak repair, and open thrombectomy of the right femoral saphenous vein bypass to distal popliteal artery. The patient came back on the mechanical ventilator. For that reason, I was consulted. Currently, the patient is on assist control, rate 10, tidal volume 450, FiO2 50%, and 5 of PEEP. Blood gases show pO2 of 202, pCO2 41, and pH is 7.33. The blood gases consistent with a mild metabolic acidosis. The patient is also getting saline at 80 mL an hour, and propofol at 35 mcg/kg/m. White count 20.7, hemoglobin 13.5, hematocrit 40.5, and platelet count 180,000. Sodium 137, potassium 4.2, chlorides 108, CO2 19, with a normal BUN and creatinine. Chest x-ray is unremarkable. On today's evaluation of 06/01/2023, the patient is being seen for a follow-up. The patient was extubated yesterday without any major difficulties and the patient is currently awake and alert and sitting up on a chair and is currently on room air oxygen. As stated earlier, the patient underwent a right femoral endarterectomy and subsequently due to complications of bleeding, the patient had a reexploration, evacuation of hematoma, saphenous vein bypass leak was repaired an open thrombectomy of the right femoral . saphenous vein bypass and distal popliteal artery was done. The patient is currently hemodynamically stable. No signs of any active leading for now. The patient's hemoglobin is stable at 8.6. Platelet count is also stable at 157. The patient received a total of 4 units of packed RBC during this current hospitalization. The BUN is at the patient is currently on IV fluids with normal saline at rate of 80 mL an hour. He remains on a combination of aspirin and Plavix. He has adequate pulses in his lower extremity is bilaterally. Surgical wound is dry clean and intact. 20 with a creatinine of 1 and sodium levels of 137. Potassium level was 3.1 and has been replaced.the patient continues to have lower extremity edema worse on the right. The patient has a JOSE ANGEL drain that his putting out approximately 200 mL on a 24-hour. Noted the patient also has history of coronary artery disease with previous coronary stenting. He has chronic peripheral vascular disease with previous bypass involving the lower extremities bilaterally. He has sciatica. No history of any chronic lung disease. Noted the patient also has severe peripheral vascular disease, has undergone previous fem-pop bypass surgery on the left and he has undergone previous stenting involving left lower extremity along with angioplasties and he presented with critical ischemia to the right lower extremity with claudication requiring femoral endarterectomy 06/02/2023, the patient is awake and alert and he is on room air oxygen. No issues with pain in his right lower extremity. JOSE ANGEL drain is still present at the surgical one-sided and it produced approximately 100 mL of bloody serous output over the past 24 hours. The patient has an external wound VAC in place. Output is minimal. Hemoglobin stable at 10.8. White cell count is stable at 9.9. BUN is at 60 with a creatinine of 0.8 and sodium levels at 135. The patient has no specific complaints. His tolerating diet. No altered mentation. He remains on aspirin and Plavix and Lipitor. IV fluids are still running at the rate of 40 mL an hour. Objective - Vital Signs Vital signs: Vital Signs Temp 97.6 F 06/02/23 04:00 Pulse 64 06/02/23 07:00 Resp 16 06/02/23 07:00 BP 126/46 06/02/23 07:00 Pulse Ox 94 L 06/02/23 07:00 FiO2 50 05/30/23 12:02 Intake & Output 06/01/23 06/02/23 06/02/23 18:59 06:59 18:59 Intake Total 964 520 40 Output Total 609 365 0 Balance 355 155 40 Weight 82 kg Intake: IV 680 520 40 Sodium Chloride 0.9% 1, 680 520 40 000 ml @ 40 mls/hr IV . Q24H [facility] Rx#:[id number] Blood Product 284 Rc Pheresis As-3 Unit 284 [id number] Output: Drainage 70 90 Right Groin 70 90 Urine 539 275 0 Other: Voiding Method Indwelling Catheter Indwelling Catheter # Bowel Movements 1 - Exam No acute distress, awake and alert and the patient is currently on room air oxygen, following commands and answering questions appropriately Head exam was generally normal. There was no scleral icterus or corneal arcus. Mucous membranes were moist. HEENT examination is grossly unremarkable. Neck supple. Full range of motion. No adenopathy thyromegaly or neck vein distention. Cardiovascular examination reveals regular rhythm rate. S1-S2 normal. No S3 or S4. No discernible murmur noted. Lungs reveal clear breath sounds. Breath sounds are equal bilaterally. No adventitious lung sounds including wheezes rhonchi or crackles. Abdomen soft bowel sounds are heard. No masses or tenderness. Extremities are intact. No cyanosis clubbing , the patient has a soft hematoma in his right groin area, the surgical wound site is clean, no active drainage and the patient has a JOSE ANGEL drain in place which is putting out bloody output in the order of 200 mL over the past 24 hours Skin is without rash or lesion. Neurologically, the patient is awake and alert and the patient does not have any focal neurological deficit. Cranial nerves are essentially intact. - Labs CBC & Chem 7: 06/02/23 05:39 06/02/23 05:39 Labs: Abnormal Lab Results - Last 24 Hours (Table) 06/01/23 06/01/23 06/01/23 Range/Units 09:00 11:19 14:41 RBC 3.70 L (4.30-5.90) m/uL Hgb 10.8 L (13.0-17.5) gm/dL Hct 33.0 L (39.0-53.0) % RDW (11.5-15.5) % Lymphocytes # (1.0-4.8) k/uL Monocytes # (0-1.0) k/uL Sodium (137-145) mmol/L Potassium 3.3 L (3.5-5.1) mmol/L Glucose (74-99) mg/dL POC Glucose (mg/dL) 112 H (70-110) mg/dL Calcium (8.4-10.2) mg/dL Total Protein (6.3-8.2) g/dL Albumin (3.5-5.0) g/dL 06/01/23 06/02/23 06/02/23 Range/Units 20:03 05:39 05:39 RBC 3.64 L (4.30-5.90) m/uL Hgb 10.8 L (13.0-17.5) gm/dL Hct 32.5 L (39.0-53.0) % RDW 15.8 H (11.5-15.5) % Lymphocytes # 0.8 L (1.0-4.8) k/uL Monocytes # 1.5 H (0-1.0) k/uL Sodium 135 L (137-145) mmol/L Potassium (3.5-5.1) mmol/L Glucose 104 H (74-99) mg/dL POC Glucose (mg/dL) 123 H (70-110) mg/dL Calcium 7.8 L (8.4-10.2) mg/dL Total Protein 5.4 L (6.3-8.2) g/dL Albumin 3.0 L (3.5-5.0) g/dL Assessment and Plan Plan: Postop day #3, status post right femoral endarterectomy with patch angioplasty, and selective right lower extremity angiogram. Postop day #2, right groin exploration, with hematoma evacuation, repair saphenous vein bypass, an open thrombectomy. Acute hypoxic respiratory failure, post intubation mechanical ventilation and subsequent extubation the patient is currently on room air oxygen Severe peripheral vascular disease with previous fem-pop bypass surgery in the left lower extremity along with angioplasties and stenting and the patient cr itical ischemia with claudication involving the right lower extremity requiring vascular intervention. Coronary artery disease with previous coronary angioplasty and stenting History of hyperlipidemia. History of deep vein thrombosis. History of gastroesophageal reflux disease. History of thyroid nodule. Vitamin D deficiency. Lower extremity edema, right more than left Blood loss anemia and the patient required a total of 4 units of packed RBC transfusion and the patient has a stable hemoglobin for now Plan Monitor the output from the JOSE ANGEL drain, improved compared to yesterday Monitor hemoglobin, stable on today's evaluation Provide incentive spirometer Pulmonary toileting Continue aspirin and Plavix IV fluids to KVO Home medications have been resumed We'll continue to follow the patient can be transferred out of the intensive care unit. Vascular surgeries on the case. Transferred to medical surgical floor
[2023-06-02] MEDS: SODIUM CHLORIDE 0.9% 1,000 ML IV SCH (09:46)
[2023-06-02] MEDS: LACTATED RINGERS 1,000 ML IV SCH (09:46)
[2023-06-02] MEDS: hydroCHLOROthiazide 12.5 MG CAP PO SCH (10:33)
[2023-06-02] MEDS: GABAPENTIN 300 MG CAP PO SCH ×3 (10:33→21:56)
[2023-06-02] MEDS: CLOPIDOGREL 75 MG TAB PO SCH (10:34)
[2023-06-02] MEDS: DORZOLAMIDE-TIMOLOL 2.23%/0.68 10ML BTL BOTH EYES SCH ×2 (10:34→21:56)
[2023-06-02 11:11] LABS: Glucose,Whole Blood 514 mg/dL (70-110)
[2023-06-02 11:44] LABS: Glucose,Whole Blood 90 mg/dL (70-110)
--- NOTE | 2023-06-02 11:52 | P.PN ---
Subjective Progress Note Date: 06/02/23 Patient was seen and examined today in the ICU. He is up in the reclining chair. He denies any acute changes through the night. Denies any pain in his right lower extremity. A Varner catheter was discontinued yesterday. Patient is voiding without difficulty. JOSE ANGEL drain in place with approximately 90 se rosanguineous drainage out yesterday. Repeat hemoglobin 10.8. Objective - Vital Signs Vital signs: Vital Signs Temp 97.6 F 06/02/23 04:00 Pulse 64 06/02/23 07:00 Resp 16 06/02/23 07:00 BP 126/46 06/02/23 07:00 Pulse Ox 94 L 06/02/23 07:00 FiO2 50 05/30/23 12:02 Intake & Output 06/01/23 06/02/23 06/02/23 18:59 06:59 18:59 Intake Total 964 520 40 Output Total 609 365 0 Balance 355 155 40 Weight 82 kg Intake: IV 680 520 40 Sodium Chloride 0.9% 1, 680 520 40 000 ml @ 40 mls/hr IV . Q24H [facility] Rx#:[id number] Blood Product 284 Rc Pheresis As-3 Unit 284 [id number] Output: Drainage 70 90 Right Groin 70 90 Urine 539 275 0 Other: Voiding Method Indwelling Catheter Indwelling Catheter # Bowel Movements 1 - Exam General appearance: The patient is alert, oriented, appears in no acute distress. HET: Head is normocephalic and atraumatic. Neck: Supple. Heart: Regular. Lungs: Equal expansion, normal respiratory effort. Abdomen: Soft, nondistended. Extremities: Normal skin color and turgor. Right groin with Prevena dressing in place with good suction, JOSE ANGEL drain in place with serosanguineous drainage, soft. Palpable bypass, and DP signal noted. Foot is warm, sensorimotor intact. Neurological: No focal deficits. Strength and sensation are grossly intact. - Labs CBC & Chem 7: 06/02/23 05:39 06/02/23 05:39 Labs: Abnormal Lab Results - Last 24 Hours (Table) 05/29/23 06/01/23 06/01/23 Range/Units 20:43 09:00 11:19 RBC (4.30-5.90) m/uL Hgb (13.0-17.5) gm/dL Hct (39.0-53.0) % Sodium (137-145) mmol/L Potassium 3.3 L (3.5-5.1) mmol/L Glucose (74-99) mg/dL POC Glucose (mg/dL) 112 H (70-110) mg/dL Calcium (8.4-10.2) mg/dL Total Protein (6.3-8.2) g/dL Albumin (3.5-5.0) g/dL Crossmatch See Detail 06/01/23 06/01/23 06/02/23 Range/Units 14:41 20:03 05:39 RBC 3.70 L (4.30-5.90) m/uL Hgb 10.8 L (13.0-17.5) gm/dL Hct 33.0 L (39.0-53.0) % Sodium 135 L (137-145) mmol/L Potassium (3.5-5.1) mmol/L Glucose 104 H (74-99) mg/dL POC Glucose (mg/dL) 123 H (70-110) mg/dL Calcium 7.8 L (8.4-10.2) mg/dL Total Protein 5.4 L (6.3-8.2) g/dL Albumin 3.0 L (3.5-5.0) g/dL Crossmatch Assessment and Plan Assessment: 1. POD #4 right femoral below knee bypass with takeback 2. Femoral occlusive disease 3. Disabling claudication/ Rest pain [place] 4 4. Right groin hematoma, hemorrhagic shock secondary to bleed from bypass- resolved. Plan: 1. Continue supportive care. 2. Continue aspirin, Plavix and statin. 3. PT/OT on consult. 4. Increase activity and encourage ambulation 5. Incentive spirometer to bedside 6. Patient may be transferred to cardiac stepdown unit Hemoglobin stable 7. Consult case management for subacute rehab placement 8. Plan for discharge in the next 24-48 hours The impression and plan of care has been dictated as directed. Dr. David I performed a history and examination of this patient, discussed the same with the dictator. I agree with the dictator's note ,documented as a scribe. Any additional findings or plans will be noted.
--- NOTE | 2023-06-02 13:10 | CDI ---
Documentation Clarification Form Date: 06/02/2023 12:41:26 PM From: Margie Hernandez RN, CCDS Admit Date: 05/29/2023 10:40:00 AM Patient Name: Saravanan Sharma Visit Number: [id number] Discharge Date: ATTENTION: The Clinical Documentation Specialists (CDI) and [facility] Coding Staff appreciate your assistance in clarifying documentation. Please respond to the clarification below the line at the bottom and electronically sign. The CDI & [facility] Coding staff will review the response and follow-up if needed. Please note: Queries are made part of the Legal Health Record. If you have any questions, please contact the author of this message via ITS. Dr. Elvie Crabtree Blood loss anemia is documented in the progress note starting 06/01/2023. Additional specificity regarding t acuity of anemia is requested. History/Risk Factors: Hyperlipidemia, Hypertension, Osteoarthritis (OA), Vascular Disorder Clinical indicators: 82-year-old male with history of PAD, claudication and critical limb ischemia with recent lower extremity angiogram presents today for femoral endarterectomy and possible bypass on 05/29/23. 05/29 HGB 6.8, HCT 22.7. 05/30 He was taken for right groin exploration with hematoma evacuation. Treatment: ICU/Telemetry monitoring Transfuse PRBC (T= 4 Units) Monitor Hemoglobin Please clarify the type and acuity of anemia: [ x ] Acute blood loss anemia [ ] Unable to determine [ ] Other, please specify (Template Last Revised: December 2020) MTDD
--- NOTE | 2023-06-02 14:13 | CDI ---
Documentation Clarification Form Date: 06/02/2023 01:33:02 PM From: aMrgie Hernandez RN, CCDS Admit Date: 05/29/2023 10:40:00 AM Patient Name: Saravanan Sharma Visit Number: [id number] Discharge Date: ATTENTION: The Clinical Documentation Specialists (CDI) and [facility] Coding Staff appreciate your assistance in clarifying documentation. Please respond to the clarification below the line at the bottom and electronically sign. The CDI & [facility] Coding staff will review the response and follow-up if needed. Please note: Queries are made part of the Legal Health Record. If you have any questions, please contact the author of this message via ITS. Dr. Elvie Crabtree Acute hypoxic respiratory failure, post intubation mechanical ventilation and subsequent extubation is documented in the progress, location] which may lack sufficient clinical evidence/support in the medical record. Additional clarification is requested. History/Risk Factors: Hyperlipidemia, Hypertension, Osteoarthritis (OA), Vascular Disorder Clinical Indicators: 82-year-old male with history of PAD, claudication and critical limb ischemia with recent lower extremity angiogram presents today for femoral endarterectomy and possible bypass on 05/29/23. 05/30 He presents to the OR emergently for hematoma evacuation and hemorrhage control. 05/30 Pulmonary Consult: Routine postoperative ventilator management. 05/31 IM (Dr. Barber): patient's remains in the intensive care unit patient is currently on room air was extubated yesterday. Current vital signs temp 98.4, heart rate 64, respiratory rate 18, blood pressure 154/57 with a pulse ox 97% on room air. 05/30 00:04 Intubated 05/30 12:43 Extubated. Treatment: ICU/Telemetry monitoring Monitor O2 Sat's (Titrate) Please clarify if acute hypoxic respiratory failure is a valid diagnosis? [ x ] Yes, acute hypoxic respiratory failure is present as evidence by (additional clinical support): [ ] No, acute hypoxic respiratory failure is ruled out. [ ] Other (please specify diagnosis) [ ] Unable to determine. (Template Last Revised: December 2020) MTDD
[2023-06-02] MEDS: LATANOPROST 0.005% OPHTH DROPS 2.5 ML BTL BOTH EYES SCH (15:46)
[2023-06-02 16:09] LABS: Glucose,Whole Blood 114 mg/dL (70-110)
--- NOTE | 2023-06-02 17:31 | P.PN ---
Subjective Progress Note Date: 06/02/23 Saravanan Sharma, is an 82-year-old male who was admitted to [facility] by Dr. David, and underwent right femoral endarterectomy with patch angioplasty, and right femoral to below knee popliteal in situ bypass, patient was transferred to telemetry floor post surgery, he developed right groin hematoma, he was taken back to operating room, and underwent right groin exploration with hematoma evacuation, saphenous vein bypass bleed repair and open thrombectomy of the right femoral and saphenous vein bypass. Patient was transferred to intensive care unit post surgery, he is intubated sedated maintained on mechanical ventilation at this time. Medical consultation was requested. Past medical history significant for history of hypertension, history of hyperlipidemia, history of peripheral vascular disease, history of spinal stenosis, history of COPD, history of glaucoma, history of coronary artery disease with history of angioplasty and stent placement. On 05/31/2023 patient's remains in the intensive care unit patient is currently on room air was extubated yesterday. Current vital signs temp 98.4, heart rate 64, respiratory rate 18, blood pressure 1 5457 with a pulse ox 97% on room air. On 06/01/2023 patient was seen and examined in the ICU he is alert and oriented 3 in no apparent distress there is no fever or chills no headache or dizziness no chest pain no shortness of breath no cough no nausea or vomiting no abdominal pain no diarrhea and no urinary symptoms. Vital exam reveals a temperature of 97.5 pulse 62 respirations 16 blood pressure 141/46 pulse ox 99% on room air. On 06/02/2023 patient was seen and examined in the ICU he is alert and oriented 3 in no apparent distress there is no fever or chills no headache or dizziness no chest pain no shortness of breath no cough no nausea or vomiting no abdominal pain no diarrhea no blood in the stools no burning with urination no frequency or urgency and no hematuria, patient has wound VAC to the groin area, he is complaining of minimal pain otherwise no complaints at this time. Objective - Vital Signs Vital signs: Vital Signs Temp 98.2 F 06/02/23 12:00 Pulse 65 06/02/23 15:00 Resp 23 06/02/23 15:00 BP 147/49 06/02/23 15:00 Pulse Ox 98 06/02/23 15:00 FiO2 50 05/30/23 12:02 Intake & Output 06/01/23 06/02/23 06/02/23 18:59 06:59 18:59 Intake Total 964 520 320 Output Total 609 365 470 Balance 355 155 -150 Weight 82 kg Intake: IV 680 520 120 Sodium Chloride 0.9% 1, 680 520 120 000 ml @ 40 mls/hr IV . Q24H [facility] Rx#:[id number] Oral 200 Blood Product 284 Rc Pheresis As-3 Unit 284 [id number] Output: Drainage 70 90 20 Right Groin 70 90 20 Urine 539 275 450 Other: Voiding Method Indwelling Catheter Indwelling Catheter Urinal # Bowel Movements 1 - Exam Patient is intubated sedated maintained on mechanical ventilation HEENT head normocephalic and atraumatic Neck is supple no JVD no goiter no lymphadenopathy Chest exam reveals a scattered crackles bilaterally no wheezing Cardiac exam reveals regular heart sounds no gallops no murmurs Abdomen is soft nontender no organomegaly with normal bowel sounds Extremity exam reveals no edema no cyanosis or clubbing pulses are palpable - Labs CBC & Chem 7: 06/02/23 05:39 06/02/23 05:39 Labs: Abnormal Lab Results - Last 24 Hours (Table) 06/01/23 06/02/23 06/02/23 Range/Units 20:03 05:39 05:39 RBC 3.64 L (4.30-5.90) m/uL Hgb 10.8 L (13.0-17.5) gm/dL Hct 32.5 L (39.0-53.0) % RDW 15.8 H (11.5-15.5) % Lymphocytes # 0.8 L (1.0-4.8) k/uL Monocytes # 1.5 H (0-1.0) k/uL Sodium 135 L (137-145) mmol/L Glucose 104 H (74-99) mg/dL POC Glucose (mg/dL) 123 H (70-110) mg/dL Calcium 7.8 L (8.4-10.2) mg/dL Total Protein 5.4 L (6.3-8.2) g/dL Albumin 3.0 L (3.5-5.0) g/dL 06/02/23 Range/Units 11:08 RBC (4.30-5.90) m/uL Hgb (13.0-17.5) gm/dL Hct (39.0-53.0) % RDW (11.5-15.5) % Lymphocytes # (1.0-4.8) k/uL Monocytes # (0-1.0) k/uL Sodium (137-145) mmol/L Glucose (74-99) mg/dL POC Glucose (mg/dL) 514 H (70-110) mg/dL Calcium (8.4-10.2) mg/dL Total Protein (6.3-8.2) g/dL Albumin (3.5-5.0) g/dL Assessment and Plan Plan: Lower extremity claudication, status post right femoral to below knee popliteal bypass Right groin hematoma, status post exploration with hematoma evacuation Underlying history of hypertension Underlying history of hyperlipidemia Underlying history of COPD Underlying history of spinal stenosis with chronic back pain Pulmonary critical care following Extubated 05/30/2023 Will follow closely during this admission
[2023-06-02] MEDS: ASPIRIN 81 MG PO SCH (19:01)
[2023-06-02 19:59] LABS: Glucose,Whole Blood 107 mg/dL (70-110)
[2023-06-02] MEDS: ATORVASTATIN 20 MG TAB PO SCH (21:56)
[2023-06-03] MEDS: HYDROcodone/APAP 5-325MG 1 EACH TAB PO PRN (02:14)
[2023-06-03 04:38] LABS: Anisocytosis Slight; Basophils % (A) 1 %; Eosinophils # (A) 0.5 k/uL (0-0.7); Eosinophils % (A) 8 %; HCT 27.7 % (39.0-53.0); Hypochromasia Moderate; Lymphocytes # (A) 0.6 k/uL (1.0-4.8); Lymphocytes % (A) 10 %; MCH 29.2 pg (25.0-35.0); MCHC 32.8 g/dL (31.0-37.0); Mean Platelet Volume 8.8; Monocytes # (A) 0.6 k/uL (0-1.0); Monocytes % (A) 9 %; Neutrophils # (A) 4.7 k/uL (1.3-7.7); Neutrophils % (A) 70 %; Platelet Count 172 k/uL (150-450); Poikilocytosis Slight; RBC 3.11 m/uL (4.30-5.90); RDW 16.1 % (11.5-15.5); WBC 6.8 k/uL (3.8-10.6)
[2023-06-03 04:53] LABS: ALT 13 U/L (4-49); AST 22 U/L (17-59); African American GFR (CKD) 81 (>60 ml/min/1.73 sqM); Albumin 2.6 g/dL (3.5-5.0); Alkaline Phosphatase 99 U/L (38-126); Anion Gap 5 mmol/L; Blood Urea Nitrogen 17 mg/dL (9-20); Calcium 7.7 mg/dL (8.4-10.2); Carbon Dioxide 24 mmol/L (22-30); Chloride 104 mmol/L (98-107); Glucose 107 mg/dL (74-99); Non-African American GFR(CKD) 70 (>60 ml/min/1.73 sqM); Potassium 3.4 mmol/L (3.5-5.1); Sodium 133 mmol/L (137-145); Total Bilirubin 1.1 mg/dL (0.2-1.3); Total Protein 4.9 g/dL (6.3-8.2)
[2023-06-03 05:00] LABS: HGB 9.1 gm/dL (13.0-17.5)
[2023-06-03] MEDS: POTASSIUM CHLORIDE ER 20 MEQ TAB.ER PO SCH ×2 (05:58→06:57)
[2023-06-03] MEDS: INSULIN ASPART (NovoLOG) 100 UNIT/ML VIAL SQ SCH ×2 (06:03→11:42)
[2023-06-03 06:04] LABS: Glucose,Whole Blood 107 mg/dL (70-110)
[2023-06-03] MEDS: DORZOLAMIDE-TIMOLOL 2.23%/0.68 10ML BTL BOTH EYES SCH (09:42)
[2023-06-03] MEDS: GABAPENTIN 300 MG CAP PO SCH (09:42)
[2023-06-03] MEDS: LACTATED RINGERS 1,000 ML IV SCH (09:42)
[2023-06-03] MEDS: hydroCHLOROthiazide 12.5 MG CAP PO SCH (09:42)
[2023-06-03] MEDS: CLOPIDOGREL 75 MG TAB PO SCH (09:42)
--- NOTE | 2023-06-03 10:15 | P.PN ---
Subjective Progress Note Date: 06/03/23 82-year-old male who underwent a right femoral endarterectomy with patch angioplasty, as well as a selective right lower extremity angiogram, and right femoral to [id number] popliteal in situ bypass. This procedure took place on May 29. Because of bleeding in the right groin, the patient was back to the operating room, early in the morning on May 30, to have a right groin exploration with hematoma evacuation, control of bleeding, saphenous vein bypass leak repair, and open thrombectomy of the right femoral saphenous vein bypass to distal popliteal artery. The patient came back on the mechanical ventilator. For that reason, I was consulted. Currently, the patient is on assist control, rate 10, tidal volume 450, FiO2 50%, and 5 of PEEP. Blood gases show pO2 of 202, pCO2 41, and pH is 7.33. The blood gases consistent with a mild metabolic acidosis. The patient is also getting saline at 80 mL an hour, and propofol at 35 mcg/kg/m. White count 20.7, hemoglobin 13.5, hematocrit 40.5, and platelet count 180,000. Sodium 137, potassium 4.2, chlorides 108, CO2 19, with a normal BUN and creatinine. Chest x-ray is unremarkable. On today's evaluation of 06/01/2023, the patient is being seen for a follow-up. The patient was extubated yesterday without any major difficulties and the patient is currently awake and alert and sitting up on a chair and is currently on room air oxygen. As stated earlier, the patient underwent a right femoral endarterectomy and subsequently due to complications of bleeding, the patient had a reexploration, evacuation of hematoma, saphenous vein bypass leak was repaired an open thrombectomy of the right femoral . saphenous vein bypass and distal popliteal artery was done. The patient is currently hemodynamically stable. No signs of any active leading for now. The patient's hemoglobin is stable at 8.6. Platelet count is also stable at 157. The patient received a total of 4 units of packed RBC during this current hospitalization. The BUN is at the patient is currently on IV fluids with normal saline at rate of 80 mL an hour. He remains on a combination of aspirin and Plavix. He has adequate pulses in his lower extremity is bilaterally. Surgical wound is dry clean and intact. 20 with a creatinine of 1 and sodium levels of 137. Potassium level was 3.1 and has been replaced.the patient continues to have lower extremity edema worse on the right. The patient has a JOSE ANGEL drain that his putting out approximately 200 mL on a 24-hour. Noted the patient also has history of coronary artery disease with previous coronary stenting. He has chronic peripheral vascular disease with previous bypass involving the lower extremities bilaterally. He has sciatica. No history of any chronic lung disease. Noted the patient also has severe peripheral vascular disease, has undergone previous fem-pop bypass surgery on the left and he has undergone previous stenting involving left lower extremity along with angioplasties and he presented with critical ischemia to the right lower extremity with claudication requiring femoral endarterectomy 06/02/2023, the patient is awake and alert and he is on room air oxygen. No issues with pain in his right lower extremity. JOSE ANGEL drain is still present at the surgical one-sided and it produced approximately 100 mL of bloody serous output over the past 24 hours. The patient has an external wound VAC in place. Output is minimal. Hemoglobin stable at 10.8. White cell count is stable at 9.9. BUN is at 60 with a creatinine of 0.8 and sodium levels at 135. The patient has no specific complaints. His tolerating diet. No altered mentation. He remains on aspirin and Plavix and Lipitor. IV fluids are still running at the rate of 40 mL an hour. 06/03/2023, the patient remains clinically and hemodynamically stable. JOSE ANGEL drain is still in place. Output has been 40 mL over the past 24 hours. The external wound VAC still in place. No major hematoma. Hemoglobin is at 9.1, slightly lower compared to yesterday and the patient is a sodium level of 133 with a potassium level of 3.4, BUN is at 17 with a creatinine of 0.99. He remains on a combination of aspirin and Plavix and Lipitor. IV fluids are currently at KVO. The patient has popliteal palpable pulse on the right, and pulses over also established in the right foot with Doppler signal. Extremities warm. No signs of any ischemia this point in time. No signs of any ischemia or pain. Awake and alert and communicating and tolerating diet. Objective - Vital Signs Vital signs: Vital Signs Temp 98.2 F 06/03/23 08:00 Pulse 69 06/03/23 10:00 Resp 17 06/03/23 10:00 BP 122/46 06/03/23 10:00 Pulse Ox 99 06/03/23 10:00 FiO2 50 05/30/23 12:02 Intake & Output 06/02/23 06/03/23 06/03/23 18:59 06:59 18:59 Intake Total 620 0 200 Output Total 690 470 200 Balance -70 -470 0 Weight 80 kg Intake: IV 120 Sodium Chloride 0.9% 1, 120 000 ml @ 40 mls/hr IV . Q24H [facility] Rx#:[id number] Oral 500 0 200 Output: Drainage 40 60 0 Right Groin 40 60 0 Urine 650 410 200 Other: Voiding Method Urinal # Bowel Movements 1 - Exam No acute distress, awake and alert and the patient is currently on room air oxygen, following commands and answering questions appropriately Head exam was generally normal. There was no scleral icterus or corneal arcus. Mucous membranes were moist. HEENT examination is grossly unremarkable. Neck supple. Full range of motion. No adenopathy thyromegaly or neck vein distention. Cardiovascular examination reveals regular rhythm rate. S1-S2 normal. No S3 or S4. No discernible murmur noted. Lungs reveal clear breath sounds. Breath sounds are equal bilaterally. No adventitious lung sounds including wheezes rhonchi or crackles. Abdomen soft bowel sounds are heard. No masses or tenderness. Extremities are intact. No cyanosis clubbing , the patient has a soft hematoma in his right groin area, the surgical wound site is clean, no active drainage and the patient has a JOSE ANGEL drain in place which is putting out bloody output in the order of 200 mL over the past 24 hours Skin is without rash or lesion. Neurologically, the patient is awake and alert and the patient does not have any focal neurological deficit. Cranial nerves are essentially intact. - Labs CBC & Chem 7: 06/03/23 04:09 06/03/23 04:09 Labs: Abnormal Lab Results - Last 24 Hours (Table) 06/02/23 06/02/23 06/03/23 Range/Units 11:08 16:08 04:09 RBC 3.11 L (4.30-5.90) m/uL Hgb 9.1 L D (13.0-17.5) gm/dL Hct 27.7 L (39.0-53.0) % RDW 16.1 H (11.5-15.5) % Lymphocytes # 0.6 L (1.0-4.8) k/uL Sodium (137-145) mmol/L Potassium (3.5-5.1) mmol/L Glucose (74-99) mg/dL POC Glucose (mg/dL) 514 H 114 H (70-110) mg/dL Calcium (8.4-10.2) mg/dL Total Protein (6.3-8.2) g/dL Albumin (3.5-5.0) g/dL 06/03/23 Range/Units 04:09 RBC (4.30-5.90) m/uL Hgb (13.0-17.5) gm/dL Hct (39.0-53.0) % RDW (11.5-15.5) % Lymphocytes # (1.0-4.8) k/uL Sodium 133 L (137-145) mmol/L Potassium 3.4 L (3.5-5.1) mmol/L Glucose 107 H (74-99) mg/dL POC Glucose (mg/dL) (70-110) mg/dL Calcium 7.7 L (8.4-10.2) mg/dL Total Protein 4.9 L (6.3-8.2) g/dL Albumin 2.6 L (3.5-5.0) g/dL Assessment and Plan Plan: Postop day # 4, status post right femoral endarterectomy with patch angioplasty, and selective right lower extremity angiogram. Postop day # 3, right groin exploration, with hematoma evacuation, repair saphenous vein bypass, an open thrombectomy. Acute hypoxic respiratory failure, post intubation mechanical ventilation and subsequent extubation the patient is currently on room air oxygen Severe peripheral vascular disease with previous fem-pop bypass surgery in the left lower extremity along with angioplasties and stenting and the patient critical ischemia with claudication involving the right lower extremity requiring vascular intervention. Coronary artery disease with previous coronary angioplasty and stenting History of hyperlipidemia. History of deep vein thrombosis. History of gastroesophageal reflux disease. History of thyroid nodule. Vitamin D deficiency. Lower extremity edema, right more than left Blood loss anemia and the patient required a total of 4 units of packed RBC transfusion and the patient has been stable and the most recent hemoglobin is slightly lower compared to yesterday at 9.1 and no signs of any active bleeding. Will monitor. Plan Monitor the output from the JOSE ANGEL drain, improved compared to yesterday, the patient will likely get discharged home with his JOSE ANGEL drain. This will be managed on outpatient basis with Xochitl surgery. Monitor hemoglobin, and pulses in the right lower extremity. Provide incentive spirometer Pulmonary toileting Continue aspirin and Plavix IV fluids to KVO Home medications have been resumed Continue aspirin and Plavix and Lipitor. Possible home today.
--- NOTE | 2023-06-03 10:32 | P.PN ---
Subjective Progress Note Date: 06/03/23 Saravanan Sharma, is an 82-year-old male who was admitted to [facility] by Dr. David, and underwent right femoral endarterectomy with patch angioplasty, and right femoral to below knee popliteal in situ bypass, patient was transferred to telemetry floor post surgery, he developed right groin hematoma, he was taken back to operating room, and underwent right groin exploration with hematoma evacuation, saphenous vein bypass bleed repair and open thrombectomy of the right femoral and saphenous vein bypass. Patient was transferred to intensive care unit post surgery, he is intubated sedated maintained on mechanical ventilation at this time. Medical consultation was requested. Past medical history significant for history of hypertension, history of hyperlipidemia, history of peripheral vascular disease, history of spinal stenosis, history of COPD, history of glaucoma, history of coronary artery disease with history of angioplasty and stent placement. On 05/31/2023 patient's remains in the intensive care unit patient is currently on room air was extubated yesterday. Current vital signs temp 98.4, heart rate 64, respiratory rate 18, blood pressure 1 5457 with a pulse ox 97% on room air. On 06/01/2023 patient was seen and examined in the ICU he is alert and oriented 3 in no apparent distress there is no fever or chills no headache or dizziness no chest pain no shortness of breath no cough no nausea or vomiting no abdominal pain no diarrhea and no urinary symptoms. Vital exam reveals a temperature of 97.5 pulse 62 respirations 16 blood pressure 141/46 pulse ox 99% on room air. On 06/02/2023 patient was seen and examined in the ICU he is alert and oriented 3 in no apparent distress there is no fever or chills no headache or dizziness no chest pain no shortness of breath no cough no nausea or vomiting no abdominal pain no diarrhea no blood in the stools no burning with urination no frequency or urgency and no hematuria, patient has wound VAC to the groin area, he is complaining of minimal pain otherwise no complaints at this time. On 06/03/2023 patient remains in the intensive care unit alert and oriented 3. Consult placed for possible inpatient rehab upon discharge. Patient has JOSE ANGEL drain in place. Patient denies chest pain or shortness of breath. Patient denies nausea vomiting or diarrhea. Patient denies any urinary burning or frequency Objective - Vital Signs Vital signs: Vital Signs Temp 98.2 F 06/03/23 08:00 Pulse 69 06/03/23 10:00 Resp 17 06/03/23 10:00 BP 122/46 06/03/23 10:00 Pulse Ox 99 06/03/23 10:00 FiO2 50 05/30/23 12:02 Intake & Output 06/02/23 06/03/23 06/03/23 18:59 06:59 18:59 Intake Total 620 0 200 Output Total 690 470 200 Balance -70 -470 0 Weight 80 kg Intake: IV 120 Sodium Chloride 0.9% 1, 120 000 ml @ 40 mls/hr IV . Q24H [facility] Rx#:[id number] Oral 500 0 200 Output: Drainage 40 60 0 Right Groin 40 60 0 Urine 650 410 200 Other: Voiding Method Urinal # Bowel Movements 1 - Exam Patient is intubated sedated maintained on mechanical ventilation HEENT head normocephalic and atraumatic Neck is supple no JVD no goiter no lymphadenopathy Chest exam reveals a scattered crackles bilaterally no wheezing Cardiac exam reveals regular heart sounds no gallops no murmurs Abdomen is soft nontender no organomegaly with normal bowel sounds Extremity exam reveals no edema no cyanosis or clubbing pulses are palpable - Labs CBC & Chem 7: 06/03/23 04:09 06/03/23 09:53 Labs: Abnormal Lab Results - Last 24 Hours (Table) 06/02/23 06/02/23 06/03/23 Range/Units 11:08 16:08 04:09 RBC 3.11 L (4.30-5.90) m/uL Hgb 9.1 L D (13.0-17.5) gm/dL Hct 27.7 L (39.0-53.0) % RDW 16.1 H (11.5-15.5) % Lymphocytes # 0.6 L (1.0-4.8) k/uL Sodium (137-145) mmol/L Potassium (3.5-5.1) mmol/L Glucose (74-99) mg/dL POC Glucose (mg/dL) 514 H 114 H (70-110) mg/dL Calcium (8.4-10.2) mg/dL Total Protein (6.3-8.2) g/dL Albumin (3.5-5.0) g/dL 06/03/23 Range/Units 04:09 RBC (4.30-5.90) m/uL Hgb (13.0-17.5) gm/dL Hct (39.0-53.0) % RDW (11.5-15.5) % Lymphocytes # (1.0-4.8) k/uL Sodium 133 L (137-145) mmol/L Potassium 3.4 L (3.5-5.1) mmol/L Glucose 107 H (74-99) mg/dL POC Glucose (mg/dL) (70-110) mg/dL Calcium 7.7 L (8.4-10.2) mg/dL Total Protein 4.9 L (6.3-8.2) g/dL Albumin 2.6 L (3.5-5.0) g/dL Assessment and Plan Plan: Lower extremity claudication, status post right femoral to below knee popliteal bypass Right groin hematoma, status post exploration with hematoma evacuation Underlying history of hypertension Underlying history of hyperlipidemia Underlying history of COPD Underlying history of spinal stenosis with chronic back pain Pulmonary critical care following Extubated 05/30/2023 Will follow closely during this admission Consult placed for possible inpatient rehab
[2023-06-03 11:41] LABS: Glucose,Whole Blood 132 mg/dL (70-110)
[2023-06-03] MEDS ORDERED: Potassium Replacement Protocol 1 EACH MISC MISCELLANE PRN (12:30)
[2023-06-03 12:33] VITALS: TEMP 98.5
--- NOTE | 2023-06-03 12:41 | P.DS ---
Providers Date of admission: 05/29/23 10:40 Expected date of discharge: 06/03/23 Attending physician: Dejuan David, Consults: 05/29/23 18:45 Consult Physician Routine Consulting Provider: Blake Barber Consult Reason/Comments: medical mangement Do you want consulting provider notified?: Yes 05/29/23 22:33 Consult Physician Stat Consulting Provider: Dejuan David Consult Reason/Comments: Critical Care Management Do you want consulting provider notified?: Already Contacted 05/30/23 06:19 Consult Physician Routine Consulting Provider: Jules Church Consult Reason/Comments: ICU management Do you want consulting provider notified?: Already Contacted 06/03/23 10:26 Consult Physician Routine Consulting Provider: Jarrett Lugo Consult Reason/Comments: ipr consult Do you want consulting provider notified?: Yes Primary care physician: Blake [facility] Course: A 82-year-old male with a history of peripheral arterial disease, claudication and critical limb ischemia with recent lower extremity angiogram presented for femoral endarterectomy and possible bypass on 05/29/2023. He underwent right femoral endarterectomy with patch angioplasty, selective right lower extremity angiogram, and right femoral to below-knee popliteal in situ bypass. Following the procedure he was found to be hypotensive and with hemorrhagic shock and right groin bleed. He was admitted to the ICU. He underwent a right groin exploration with hematoma evacuation, hemorrhage control and saphenous vein bypass bleed repair with open thrombectomy of the right femoral, saphenous vein bypass and distal popliteal artery. He had a JOSE ANGEL drain placed at that time. Since then he has had no further bleeding. JOSE ANGEL drain with approximated 90 mL's of serosanguineous drainage daily. He received 4 units of packed RBCs during this admission. Discharge hemoglobin 9.1. He has Prevena VAC to the right groin. He has been up and ambulating. He denies any pain. Vital signs have be en stable he's been afebrile. Today's reviewed he passed potassium 3.4, replaced per protocol with a repeat potassium of 3.6. Exam General appearance: The patient is alert, oriented, appears in no acute distress. HET: Head is normocephalic and atraumatic. Neck: Supple. Heart: Regular. Lungs: Equal expansion, normal respiratory effort. Abdomen: Soft, nondistended. Extremities: Normal skin color and turgor. Right groin with Prevena dressing in place with good suction, JOSE ANGEL drain in place with serosanguineous drainage, soft. Palpable bypass, and DP signal noted. Foot is warm, sensorimotor intact. Neurological: No focal deficits. Strength and sensation are grossly intact. Assessment 1. POD #5 right femoral below knee bypass with takeback 2. Femoral occlusive disease 3. Disabling claudication/ Rest pain [place] 4 4. Right groin hematoma, hemorrhagic shock secondary to bleed from bypass- resolved. Plan Patient to be discharged home with home care services. Prescription for repeat hemoglobin in 3 days. Follow-up in 7-10 days. JOSE ANGEL drain to stay in place until further evaluated. Discontinue and remove Prevena dressing on 06/05/23. Potassium was replaced per protocol. The impression and plan of care has been dictated as directed. I performed a history and examination of this patient, discussed the same with the dictator. I agree with the dictator's note ,documented as a scribe. Any additional findings or plans will be noted. Procedures: 05/29/2023 Right femoral endarterectomy with patch angioplasty Selective right lower extremity angiogram Right femoral to below knee popliteal insitu bypass 05/30/2023 Right groin exploration with hematoma evacuation Hemorrhage control - saphenous vein bypass bleed repair Open thrombectomy of the right femoral, saphenous vein bypass and distal popliteal artery Patient Condition at Discharge: Stable Plan - Discharge Summary Discharge Rx Participant: Yes New Discharge Prescriptions: Continue Dorzolamide/Timolol/Pf [Cosopt Pf 2%/0.5% Ophth Droperette] 1 drop BOTH EYES BID Gabapentin [Neurontin] 300 mg PO TID Travoprost [Travatan Z 0.004%] 1 drop BOTH EYES DAILY Aspirin EC [Ecotrin Low Dose] 81 mg PO PC-SUPPER #0 Clopidogrel Bisulfate [Plavix] 75 mg PO QAM #0 Simvastatin [Zocor] 40 mg PO HS hydroCHLOROthiazide [Hydrodiuril] 12.5 mg PO DAILY HYDROcodone/APAP 10-325MG [[place] 10-325] 1 tab PO DIRECTED PRN PRN Reason: Pain Discharge Medication List Dorzolamide/Timolol/Pf [Cosopt Pf 2%/0.5% Ophth Droperette] 1 drop BOTH EYES BID 03/18/17 [History] Gabapentin [Neurontin] 300 mg PO TID 11/18/17 [History] Travoprost [Travatan Z 0.004%] 1 drop BOTH EYES DAILY 12/12/18 [History] Aspirin EC [Ecotrin Low Dose] 81 mg PO PC-SUPPER #0 11/11/19 [Rx] Clopidogrel Bisulfate [Plavix] 75 mg PO QAM #0 11/11/19 [Rx] Simvastatin [Zocor] 40 mg PO HS 12/06/20 [History] hydroCHLOROthiazide [Hydrodiuril] 12.5 mg PO DAILY 12/06/20 [History] HYDROcodone/APAP 10-325MG [[place] 10-325] 1 tab PO DIRECTED PRN 03/14/21 [History] Follow up Appointment(s)/Referral(s): Grace Varner DO [STAFF PHYSICIAN] - 06/17/23 9:30 am [facility], [NON-STAFF] - 1 Week Ambulatory/Diagnostic Orders: Complete Blood Count w/diff [LAB.AMB] Time Frame: 2 Days, Location: None Selected Activity/Diet/Wound Care/Special Instructions: Empty JOSE ANGEL drain daily. Sponge bath until Prevena dressing removed. Remove Prevena dressing on 06/05/23 and throw away. You mat then shower but no tub baths or soaking. No driving until cleared by vascular surgeon Avoid heavy lifting greater than 10 lbs , pushing, pulling, straining, flights of stairs for 2 weeks signs of infection ie: fever, rash, drainage from puncture site, swelling contact doctor or return to ER immediately. Heavy bleeding from puncture site apply firm direct pressure and return to ER. Do not attempt to drive self. low sodium/low fat diet Discharge Disposition: HOME WITH HOME HEALTH SERVICES
[2023-06-03] MEDS: LATANOPROST 0.005% OPHTH DROPS 2.5 ML BTL BOTH EYES SCH (12:47)
[2023-06-03] MEDS ORDERED: POTASSIUM CHLORIDE ER 20 MEQ TAB.ER PO SCH (13:00)
[2023-06-03 13:39] VITALS: BP 129/49; PULSE 65; RESP 19
--- NOTE | 2023-06-03 16:14 | P.CONS ---
History of Present Illness - Reason for Consult Consult date: 06/03/23 - History of Present Illness PM&R was consulted for rehab recommendations early afternoon. Unfortunately patient discharged before we were able to see patient today with [facility]. Past Medical History Past Medical History: Eye Disorder, Hyperlipidemia, Hypertension, Osteoarthritis (OA), Vascular Disorder Additional Past Medical History / Comment(s): Sciatica, PVD, GLAUCOMA, has had double vision a few times, no diagnosis. History of Any Multi-Drug Resistant Organisms: None Reported Past Surgical History: Heart Catheterization, Heart Catheterization With Stent Additional Past Surgical History / Comment(s): 3 stents in left leg, angioplasty bilateral legs, aortogram, bilateral cataracts, FEMPOP BYPASS LEFT LEG -FAILED, cysts removed from back and chest. Past Anesthesia/Blood Transfusion Reactions: No Reported Reaction Date of Last Stent Placement:: 2016 Past Psychological History: No Psychological Hx Reported Smoking Status: Former smoker Past Alcohol Use History: Rare Additional Past Alcohol Use History / Comment(s): SMOKED FROM 4 TO 1988, 1-2 PPD. Past Drug Use History: None Reported - Past Family History Mother Family Medical History: Diabetes Mellitus Father Family Medical History: Coronary Artery Disease (CAD), Rheumatoid Arthritis (RA) Additional Family Medical History / Comment(s): ARTERIAL SCLEROSIS Medications and Allergies Home Medications Medication Instructions Recorded Confirmed Type Dorzolamide/Timolol/Pf [Cosopt Pf 1 drop BOTH EYES BID 03/18/17 05/25/23 History 2%/0.5% Ophth Droperette] Gabapentin [Neurontin] 300 mg PO TID 11/18/17 05/25/23 History Travoprost [Travatan Z 0.004%] 1 drop BOTH EYES DAILY 12/12/18 05/25/23 History Aspirin EC [Ecotrin Low Dose] 81 mg PO PC-SUPPER #0 11/11/19 05/29/23 Rx Clopidogrel Bisulfate [Plavix] 75 mg PO QAM #0 11/11/19 05/25/23 Rx Simvastatin [Zocor] 40 mg PO HS 12/06/20 05/25/23 History hydroCHLOROthiazide [Hydrodiuril] 12.5 mg PO DAILY 12/06/20 05/25/23 History HYDROcodone/APAP 10-325MG [[place] 1 tab PO DIRECTED PRN 03/14/21 05/29/23 History 10-325] Allergies Allergy/AdvReac Type Severity Reaction Status Date / Time rivaroxaban [From Xarelto] Allergy "internal Verified 05/29/23 11:07 bleeding" Physical Exam Vitals: Vital Signs Temp Pulse Resp BP Pulse Ox 06/03/23 13:00 65 19 129/49 98 06/03/23 12:00 98.5 F 54 L 13 136/44 98 06/03/23 11:00 58 L 14 138/48 100 06/03/23 10:00 69 17 122/46 99 06/03/23 09:09 86 18 122/46 92 L 06/03/23 08:00 98.2 F 62 11 L 143/57 97 06/03/23 07:00 68 13 135/45 97 06/03/23 06:00 62 12 122/46 98 06/03/23 05:00 54 L 13 114/46 96 06/03/23 04:00 98.1 F 57 L 14 121/42 94 L 06/03/23 03:00 58 L 13 128/47 94 L 06/03/23 02:00 62 16 132/54 99 06/03/23 01:00 63 14 128/45 98 06/03/23 00:00 97.7 F 62 14 120/42 98 06/02/23 23:00 58 L 14 139/44 97 06/02/23 22:00 64 14 118/38 100 06/02/23 21:00 61 13 142/77 97 06/02/23 20:00 97.5 F L 73 18 161/56 99 06/02/23 19:00 61 11 L 141/44 99 06/02/23 18:00 60 11 L 06/02/23 17:00 72 17 98 Intake and Output 06/03/23 06/03/23 06/03/23 06:59 14:59 22:59 Intake Total 450 Output Total 450 200 Balance -450 250 Intake: Oral 450 Output: Drainage 40 0 Right Groin 40 0 Urine 410 200 Other: Weight 80 kg Results CBC & Chem 7: 06/03/23 04:09 06/03/23 14:16 Labs: Abnormal Lab Results - Last 24 Hours (Table) 06/03/23 06/03/23 06/03/23 Range/Units 04:09 04:09 11:40 RBC 3.11 L (4.30-5.90) m/uL Hgb 9.1 L D (13.0-17.5) gm/dL Hct 27.7 L (39.0-53.0) % RDW 16.1 H (11.5-15.5) % Lymphocytes # 0.6 L (1.0-4.8) k/uL Sodium 133 L (137-145) mmol/L Potassium 3.4 L (3.5-5.1) mmol/L Glucose 107 H (74-99) mg/dL POC Glucose (mg/dL) 132 H (70-110) mg/dL Calcium 7.7 L (8.4-10.2) mg/dL Total Protein 4.9 L (6.3-8.2) g/dL Albumin 2.6 L (3.5-5.0) g/dL
== END 2023-06-03 14:48 | disposition home health service (06) | DRG 252 ==
LOC: 2ORMAIN 10:40 → 3SCARD 18:36 → 2SICU 20:30
PROVIDERS: ADMIT Surgery; ATTEND Surgery
PROC: 041K09L Bypass Right Femoral Artery to Popliteal Artery with Autologous Venous Tissue, Open Approach (ICD-10-PCS; 2023-05-29)
PROC: 041K0JL Bypass Right Femoral Artery to Popliteal Artery with Synthetic Substitute, Open Approach (ICD-10-PCS; 2023-05-29)
PROC: 04UK07Z Supplement Right Femoral Artery with Autologous Tissue Substitute, Open Approach (ICD-10-PCS; 2023-05-29)
PROC: 04CK0ZZ Extirpation of Matter from Right Femoral Artery, Open Approach (ICD-10-PCS; principal; 2023-05-29 12:30)
PROC: 04CK0ZZ Extirpation of Matter from Right Femoral Artery, Open Approach (ICD-10-PCS; 2023-05-30)
PROC: 0Y370ZZ Control Bleeding in Right Femoral Region, Open Approach (ICD-10-PCS; 2023-05-30)
PROC: 04CM0ZZ Extirpation of Matter from Right Popliteal Artery, Open Approach (ICD-10-PCS; 2023-05-30)
DX: I70.221 Atherosclerosis of native arteries of extremities with rest pain, right leg (principal); J96.01 Acute respiratory failure with hypoxia; T81.19XA Other postprocedural shock, initial encounter; T82.332A Leakage of femoral arterial graft (bypass), initial encounter; I97.638 Postprocedural hematoma of a circulatory system organ or structure following other circulatory system procedure; D62 Acute posthemorrhagic anemia; J44.9 Chronic obstructive pulmonary disease, unspecified; I10 Essential (primary) hypertension; E78.5 Hyperlipidemia, unspecified; M19.90 Unspecified osteoarthritis, unspecified site; I25.10 Atherosclerotic heart disease of native coronary artery without angina pectoris; E55.9 Vitamin D deficiency, unspecified; S30.1XXA Contusion of abdominal wall, initial encounter; M48.00 Spinal stenosis, site unspecified; G89.29 Other chronic pain; Y83.2 Surgical operation with anastomosis, bypass or graft as the cause of abnormal reaction of the patient, or of later complication, without mention of misadventure at the time of the procedure; Z95.820 Peripheral vascular angioplasty status with implants and grafts; Z87.891 Personal history of nicotine dependence; Z82.49 Family history of ischemic heart disease and other diseases of the circulatory system; Z86.718 Personal history of other venous thrombosis and embolism; Z95.5 Presence of coronary angioplasty implant and graft; Z79.02 Long term (current) use of antithrombotics/antiplatelets; Z79.891 Long term (current) use of opiate analgesic; Z79.82 Long term (current) use of aspirin; Z79.899 Other long term (current) drug therapy; Z88.8 Allergy status to other drugs, medicaments and biological substances
CPT/HCPCS: 36600; 71045; 80048; 80053; 82805; 83036; 83735; 84132; 85025; 85027; 86850; 86900; 86901; 86920; 88304; 88305; 88311; 94002

== ENCOUNTER → 2023-06-05 | Outpatient (CLI) | payer MEDICARE, OTHER ==
[2023-06-05 21:12] LABS: HCT 32.3 % (39.6-50.0); MCH 28.2 pg (27.0-32.0); Mean Platelet Volume 10.6 FL (9.5-12.2); NRBC Per 100 WBC 0 X 10*3/uL (0.00-0.01); Platelet Count 268 X 10*3/uL (140-440); RBC 3.55 X 10*6/uL (4.40-5.60); RDW 16.9 % (11.5-14.5); WBC 7.96 X 10*3/uL (4.50-10.00)
== END | disposition home or self-care (01) ==
LOC: LABWHC1 12:12
PROVIDERS: ATTEND Surgery
DX: I70.213 Atherosclerosis of native arteries of extremities with intermittent claudication, bilateral legs (principal)
CPT/HCPCS: 36415; 85027

== ENCOUNTER 2023-06-14 12:33 | Inpatient (IN) | payer MEDICARE, OTHER ==
[2023-06-14] MEDS ORDERED: SODIUM CHLORIDE 0.9% 1,000 ML IV STA (13:16)
[2023-06-14] MEDS ORDERED: SODIUM CHLORIDE 0.9% 500 ML 500 ML IV STA (13:16)
--- NOTE | 2023-06-14 13:23 | ED ---
Nausea/Vomiting/Diarrhea HPI - General Chief complaint: Nausea/Vomiting/Diarrhea Stated complaint: Nausea Time Seen by Provider: 06/14/23 12:54 Source: patient, family, RN notes reviewed Mode of arrival: ambulatory Limitations: no limitations - History of Present Illness Initial comments: 82-year-old male with a history of peripheral vascular disease hypertension hyperlipidemia coronary artery disease with stent in the past a former smoker presents today with complaints of progressively worsening weakness decreased intake since he was discharged from the hospital recently. He did have a femoral bypass done in May 28 of this year. He still has a Lyn[place]-Gaines drain in. He denies any fevers chills or sweats he states his urine is slightly dark er in the morning but seems to clear up in the afternoon he also states the drainage and the JOSE ANGEL drain suture appears be clearing up. His concern today is for getting weaker sometimes lightheaded and dizzy when he tries to walk no palpitations no chest pain he states he did have a slight cough and was discharged from the hospital but this is since resolved. Per the patient's caregiver is very hot in the patient's apartment. No other current complaints or modifying factors MD complaint: nausea, diarrhea, other - Related Data Home Medications Medication Instructions Recorded Confirmed Dorzolamide/Timolol/Pf [Cosopt Pf 1 drop BOTH EYES BID 03/18/17 05/25/23 2%/0.5% Ophth Droperette] Gabapentin [Neurontin] 300 mg PO TID 11/18/17 05/25/23 Travoprost [Travatan Z 0.004%] 1 drop BOTH EYES DAILY 12/12/18 05/25/23 Simvastatin [Zocor] 40 mg PO HS 12/06/20 05/25/23 hydroCHLOROthiazide [Hydrodiuril] 12.5 mg PO DAILY 12/06/20 05/25/23 HYDROcodone/APAP 10-325MG [[place] 1 tab PO DIRECTED PRN 03/14/21 05/29/23 10-325] Previous Rx's Medication Instructions Recorded Aspirin EC [Ecotrin Low Dose] 81 mg PO PC-SUPPER #0 11/11/19 Clopidogrel Bisulfate [Plavix] 75 mg PO QAM #0 11/11/19 Allergies Allergy/AdvReac Type Severity Reaction Status Date / Time rivaroxaban [From Xarelto] Allergy "internal Verified 05/29/23 11:07 bleeding" Review of Systems ROS Statement: Those systems with pertinent positive or pertinent negative responses have been documented in the HPI. ROS Other: All systems not noted in ROS Statement are negative. Past Medical History Past Medical History: Eye Disorder, Hyperlipidemia, Hypertension, Osteoarthritis (OA), Vascular Disorder Additional Past Medical History / Comment(s): Sciatica, PVD, GLAUCOMA, has had double vision a few times, no diagnosis. History of Any Multi-Drug Resistant Organisms: None Reported Past Surgical History: Heart Catheterization, Heart Catheterization With Stent Additional Past Surgical History / Comment(s): 3 stents in left leg, angioplasty bilateral legs, aortogram, bilateral cataracts, FEMPOP BYPASS LEFT LEG -FAILED, cysts removed from back and chest. Past Anesthesia/Blood Transfusion Reactions: No Reported Reaction Date of Last Stent Placement:: 2016 Past Psychological History: No Psychological Hx Reported Smoking Status: Former smoker Past Alcohol Use History: Rare Past Drug Use History: None Reported - Past Family History Mother Family Medical History: Diabetes Mellitus Father Family Medical History: Coronary Artery Disease (CAD), Rheumatoid Arthritis (RA) Additional Family Medical History / Comment(s): ARTERIAL SCLEROSIS General Exam - General Exam Comments Initial Comments: This is a well-developed well-nourished awake alert oriented 4 male Limitations: no limitations General appearance: alert Head exam: Present: atraumatic, normocephalic, normal inspection Eye exam: Present: normal appearance, PERRL, EOMI. Absent: scleral icterus, conjunctival injection, periorbital swelling ENT exam: Present: mucous membranes dry Neck exam: Present: normal inspection, full ROM, other (No stridor JVD or bruits). Absent: tenderness, meningismus, lymphadenopathy Respiratory exam: Present: normal lung sounds bilaterally. Absent: respiratory distress, wheezes, rales, rhonchi, stridor Cardiovascular Exam: Present: regular rate, normal rhythm, normal heart sounds. Absent: systolic murmur, diastolic murmur, rubs, gallop, clicks GI/Abdominal exam: Present: soft, normal bowel sounds. Absent: distended, tenderness, guarding, rebound, rigid, bruit, pulsatile mass Rectal exam: Present: deferred Extremities exam: Present: full ROM, normal capillary refill, other (MH the right lower extremities he distal what appears be healing well no evidence of infectious process [facility] is somewhat erythematous slight localized increased temperature no exudate seen proximal to this the wound still has sutures intact somewhat erythematous no evidence of any drai). Absent: tenderness, pedal edema, joint swelling, calf tenderness Back exam: Present: normal inspection Neurological exam: Present: alert, oriented X3, CN II-XII intact Psychiatric exam: Present: normal affect, normal mood Skin exam: Present: warm, dry, intact, normal color. Absent: rash Course Vital Signs 06/14/23 06/14/23 06/14/23 12:40 14:51 16:00 Temperature 98.7 F Pulse Rate 73 74 Respiratory 16 18 Rate Blood Pressure 123/67 148/46 147/51 O2 Sat by Pulse 97 Oximetry Medical Decision Making - Medical Decision Making I did discuss Pfizer the patient. Also with family members patient does have elevated troponin I did discuss the case with Dr. Engel's group covering Dr. jacobs are patient be admitted weakness nausea elevated troponin he did have the recent vascular procedure Dr. Monsivais will also be consulted along with cardiology no EKG changes on the EKG it appeared to be acuteWas pt. sent in by a medical professional or institution (, PA, RETAIL SERVICES PROFESSIONAL, urgent care, hospital, or retirement...) When possible be specific @ -No Did you speak to anyone other than the patient for history (EMS, parent, family, police, friend...)? What history was obtained from this source @ -No Did you review nursing and triage notes (agree or disagree)? Why? @ -I reviewed and agree with nursing and triage notes Were old charts reviewed (outside hosp., previous admission, EMS record, old EKG, old radiological studies, urgent care reports/EKG's, retirement records)? Report findings @ -Was recent visit old charts were reviewed Differential Diagnosis (chest pain, altered mental status, abdominal pain women, abdominal pain men, vaginal bleeding, weakness, fever, dyspnea, syncope, headache, dizziness, GI bleed, back pain, seizure, CVA, palpatations, mental health, musculoskeletal)? @ -Dehydration, pneumonia, urinary tract infection EKG interpreted by me (3pts min.). @ -As above EKG interpreted by me sinus rhythm with first-degree AV block rate 68 appear interval 218 QRS duration 87 QT since QTC 350/368 is no peritoneal EKG dated 12/12/18 showing similar configuration X-rays interpreted by me (1pt min.). @ -Turbid by me no acute process] CT interpreted by me (1pt min.). @ -None done U/S interpreted by me (1pt. min.). @ -None done What testing was considered but not performed or refused? (CT, X-rays, U/S, labs)? Why? @ -None What meds were considered but not given or refused? Why? @ -None Did you discuss the management of the patient with other professionals (professionals i.e. DrAntonio, PA, RETAIL SERVICES PROFESSIONAL, lab, RT, psych nurse, social media specialist, final inspector and tester, teacher, school services officer, test case developer)? Give summary @ -[Khalida Kellogg covering for Dr. Engel] Was smoking cessation discussed for >3mins.? @ -[No] Was critical care preformed (if so, how long)? @ -[No] Were there social determinants of health that impacted care today? How? (Homelessness, low income, unemployed, alcoholism, drug addiction, mckenzie sportation, low edu. Level, literacy, decrease access to med. care, senior living, rehab)? @ -[No] Was there de-escalation of care discussed even if they declined (Discuss DNR or withdrawal of care, Hospice)? DNR status @ -[No] What co-morbidities impacted this encounter? (DM, HTN, Smoking, COPD, CAD, Cancer, CVA, ARF, Chemo, Hep., AIDS, mental health diagnosis, sleep apnea, morbid obesity)? @ -[Peripheral vascular disease, recent femoral surgery] Was patient admitted / discharged? Hospital course, mention meds given and route, prescriptions, significant lab abnormalities, going to OR and other pertinent info. @ -[hospital course patient was admitted for inpatient treatment and evaluation evaluation for elevated troponin weakness nausea decreased oral intake feeling thrive] Undiagnosed new problem with uncertain prognosis? @ -[Aleve troponin] Drug Therapy requiring intensive monitoring for toxicity (Heparin, Nitro, Insulin, Cardizem)? @ -[No] Were any procedures done? @ -[No] Diagnosis/symptom? @ -[Weakness, elevated troponin, failure to thrive, dehydration] Acute, or Chronic, or Acute on Chronic? @ -[Acute] Uncomplicated (without systemic symptoms) or Complicated (systemic symptoms)? @ -[Complicated] Side effects of treatment? @ -[No] Exacerbation, Progression, or Severe Exacerbation? @ -[No] Poses a threat to life or bodily function? How? (Chest pain, USA, PR, pneumonia, PE, COPD, DKA, ARF, appy, cholecystitis, CVA, Diverticulitis, Homicidal, Suicidal, threat to staff... and all critical care pts) @ -[Yes elevated troponin] - Lab Data Result diagrams: 06/14/23 14:03 06/14/23 14:03 Lab Results 06/14/23 06/14/23 06/14/23 Range/Units 14:03 14:03 14:03 WBC 6.0 (3.8-10.6) k/uL RBC 3.59 L (4.30-5.90) m/uL Hgb 10.7 L (13.0-17.5) gm/dL Hct 32.1 L (39.0-53.0) % MCV 89.3 (80.0-100.0) fL MCH 29.7 (25.0-35.0) pg MCHC 33.2 (31.0-37.0) g/dL RDW 17.4 H (11.5-15.5) % Plt Count 267 (150-450) k/uL MPV 8.6 Neutrophils % 89 % Lymphocytes % 4 % Monocytes % 5 % Eosinophils % 1 % Basophils % 0 % Neutrophils # 5.3 (1.3-7.7) k/uL Lymphocytes # 0.2 L (1.0-4.8) k/uL Monocytes # 0.3 (0-1.0) k/uL Eosinophils # 0.0 (0-0.7) k/uL Basophils # 0.0 (0-0.2) k/uL Hypochromasia Slight Anisocytosis Slight Sodium 131 L (137-145) mmol/L Potassium 4.4 (3.5-5.1) mmol/L Chloride 97 L (98-107) mmol/L Carbon Dioxide 24 (22-30) mmol/L Anion Gap 10 mmol/L BUN 13 (9-20) mg/dL Creatinine 1.08 (0.66-1.25) mg/dL Est GFR (CKD-EPI)AfAm 73 (>60 ml/min/1.73 sqM) Est GFR (CKD-EPI)NonAf 63 (>60 ml/min/1.73 sqM) Glucose 103 H (74-99) mg/dL Calcium 8.4 (8.4-10.2) mg/dL Magnesium 2.1 (1.6-2.3) mg/dL Total Bilirubin 1.5 H (0.2-1.3) mg/dL AST 27 (17-59) U/L ALT 14 (4-49) U/L Alkaline Phosphatase 125 (38-126) U/L Creatine Kinase 37 L (55-170) U/L Troponin I 0.041 H* (0.000-0.034) ng/mL Total Protein 6.4 (6.3-8.2) g/dL Albumin 3.5 (3.5-5.0) g/dL Lipase 104 (23-300) U/L Urine Color Urine Appearance (Clear) Urine pH (5.0-8.0) Ur Specific [place] (1.001-1.035) Urine Protein (Negative) Urine Glucose (UA) (Negative) Urine Ketones (Negative) Urine Blood (Negative) Urine Nitrite (Negative) Urine Bilirubin (Negative) Urine Urobilinogen (<2.0) mg/dL Ur Leukocyte Esterase (Negative) Urine RBC (0-5) /hpf Urine WBC (0-5) /hpf Ur Squamous Epith Cells (0-4) /hpf Urine Mucus (None) /hpf 06/14/23 Range/Units 14:48 WBC (3.8-10.6) k/uL RBC (4.30-5.90) m/uL Hgb (13.0-17.5) gm/dL Hct (39.0-53.0) % MCV (80.0-100.0) fL MCH (25.0-35.0) pg MCHC (31.0-37.0) g/dL RDW (11.5-15.5) % Plt Count (150-450) k/uL MPV Neutrophils % % Lymphocytes % % Monocytes % % Eosinophils % % Basophils % % Neutrophils # (1.3-7.7) k/uL Lymphocytes # (1.0-4.8) k/uL Monocytes # (0-1.0) k/uL Eosinophils # (0-0.7) k/uL Basophils # (0-0.2) k/uL Hypochromasia Anisocytosis Sodium (137-145) mmol/L Potassium (3.5-5.1) mmol/L Chloride (98-107) mmol/L Carbon Dioxide (22-30) mmol/L Anion Gap mmol/L BUN (9-20) mg/dL Creatinine (0.66-1.25) mg/dL Est GFR (CKD-EPI)AfAm (>60 ml/min/1.73 sqM) Est GFR (CKD-EPI)NonAf (>60 ml/min/1.73 sqM) Glucose (74-99) mg/dL Calcium (8.4-10.2) mg/dL Magnesium (1.6-2.3) mg/dL Total Bilirubin (0.2-1.3) mg/dL AST (17-59) U/L ALT (4-49) U/L Alkaline Phosphatase (38-126) U/L Creatine Kinase (55-170) U/L Troponin I (0.000-0.034) ng/mL Total Protein (6.3-8.2) g/dL Albumin (3.5-5.0) g/dL Lipase (23-300) U/L Urine Color Yellow Urine Appearance Clear (Clear) Urine pH 5.5 (5.0-8.0) Ur Specific [place] 1.021 (1.001-1.035) Urine Protein 1+ H (Negative) Urine Glucose (UA) Negative (Negative) Urine Ketones 2+ H (Negative) Urine Blood Negative (Negative) Urine Nitrite Negative (Negative) Urine Bilirubin 1+ H (Negative) Urine Urobilinogen <2.0 (<2.0) mg/dL Ur Leukocyte Esterase Negative (Negative) Urine RBC 1 (0-5) /hpf Urine WBC 1 (0-5) /hpf Ur Squamous Epith Cells 1 (0-4) /hpf Urine Mucus Many H (None) /hpf - EKG Data -: EKG Interpreted by Me EKG Comments: EKG shows sinus rhythm first-degree AV block ventricular rate 68 DC interval 218 QRS duration 87 QT/QTC 350/368 for LVH no acute ST-T wave changes - Radiology Data Interpreted by me: Imaging interpreted by me no acute processes. Disposition Clinical Impression: Weakness, Failure to thrive, Elevated troponin, Dehydration Disposition: ADMITTED IP TO THIS HOSP Condition: Stable Referrals: Blake Barber MD [Primary Care Provider] - 1-2 days Decision Date: 06/14/23 Decision Time: 17:00
[2023-06-14 14:26] LABS: Anisocytosis Slight; Basophils % (A) 0 %; Eosinophils % (A) 1 %; HCT 32.1 % (39.0-53.0); HGB 10.7 gm/dL (13.0-17.5); Hypochromasia Slight; Lymphocytes # (A) 0.2 k/uL (1.0-4.8); Lymphocytes % (A) 4 %; MCH 29.7 pg (25.0-35.0); MCHC 33.2 g/dL (31.0-37.0); MCV 89.3 fL (80.0-100.0); Mean Platelet Volume 8.6; Monocytes # (A) 0.3 k/uL (0-1.0); Monocytes % (A) 5 %; Neutrophils # (A) 5.3 k/uL (1.3-7.7); Neutrophils % (A) 89 %; Platelet Count 267 k/uL (150-450); RBC 3.59 m/uL (4.30-5.90); RDW 17.4 % (11.5-15.5)
[2023-06-14 14:35] LABS: ALT 14 U/L (4-49); AST 27 U/L (17-59); African American GFR (CKD) 73 (>60 ml/min/1.73 sqM); Albumin 3.5 g/dL (3.5-5.0); Alkaline Phosphatase 125 U/L (38-126); Anion Gap 10 mmol/L; Blood Urea Nitrogen 13 mg/dL (9-20); Calcium 8.4 mg/dL (8.4-10.2); Carbon Dioxide 24 mmol/L (22-30); Chloride 97 mmol/L (98-107); Creatine Kinase 37 U/L (55-170); Glucose 103 mg/dL (74-99); Lipase 104 U/L (23-300); Magnesium 2.1 mg/dL (1.6-2.3); Non-African American GFR(CKD) 63 (>60 ml/min/1.73 sqM); Potassium 4.4 mmol/L (3.5-5.1); Sodium 131 mmol/L (137-145); Total Bilirubin 1.5 mg/dL (0.2-1.3); Total Protein 6.4 g/dL (6.3-8.2)
--- NOTE | 2023-06-14 14:51 | XR ---
EXAMINATION TYPE: XR chest 2V DATE OF EXAM: 06/14/2023 COMPARISON: 05/30/2023 HISTORY: Shortness of breath TECHNIQUE: Frontal and lateral views of the chest are obtained. FINDINGS: Scattered senescent parenchymal changes noted. Hyperinflation compatible with COPD. No evidence for infiltrate. No evidence for atelectasis. Heart size is stable. Mediastinal structures are stable and grossly unremarkable. No evidence for hilar prominence. Degenerative changes dorsal spine. IMPRESSION: 1. No evidence for acute pulmonary disease.
--- NOTE | 2023-06-14 14:53 | XR ---
EXAMINATION TYPE: XR KUB DATE OF EXAM: 06/14/2023 COMPARISON: NONE HISTORY: Pain TECHNIQUE: Single supine KUB image of the abdomen is obtained FINDINGS: Small bowel demonstrates no evidence for dilatation or air fluid levels. Gas and fecal material is seen in non-distended colon. No convincing evidence for pneumoperitoneum. No unusual calcifications. The lung bases are clear. The osseous structures are intact. IMPRESSION: 1. Overall nonobstructive bowel gas pattern.
[2023-06-14 15:19] LABS: Appearance,Urine Clear (Clear); Bilirubin,Urine 1+ (Negative); Blood,Urine Negative (Negative); Color,Urine Yellow; Glucose,Urine (UA) Negative (Negative); Ketones,Urine 2+ (Negative); Leukocyte Esterase,Urine Negative (Negative); Mucus,Urine Many /hpf; Nitrite,Urine Negative (Negative); PH, Urine 5.5 (5.0-8.0); Protein,Urine 1+ (Negative); RBC,Urine 1 /hpf (0-5); Specific Gravity,Urine 1.021 (1.001-1.035); Squamous Epithelial Cell,Urine 1 /hpf (0-4); Urobilinogen,Urine <2.0 mg/dL (<2.0); WBC,Urine 1 /hpf (0-5)
[2023-06-14] MEDS ORDERED: NALOXONE 0.4 MG/ML 1 ML VIAL IV PRN (18:36)
[2023-06-14] MEDS ORDERED: ONDANSETRON 4 MG/2 ML VIAL IVP STA (20:15)
[2023-06-14] MEDS ORDERED: ACETAMINOPHEN IV (For NPO) 1,000 MG in EMPTY BAG 1 BAG IVPB STA (20:36)
[2023-06-14] MEDS ORDERED: cefTRIAXone IN SWFI 1,000 MG/10 ML SYRINGE IVP STA (20:38)
[2023-06-14] MEDS: SODIUM CHLORIDE 0.9% 1,000 ML IV SCH (20:44)
[2023-06-14] MEDS: ATORVASTATIN 20 MG TAB PO SCH (22:59)
[2023-06-14] MEDS: DORZOLAMIDE-TIMOLOL 2.23%/0.68 10ML BTL BOTH EYES SCH (22:59)
[2023-06-14] MEDS: GABAPENTIN 300 MG CAP PO SCH (23:00)
[2023-06-15] MEDS: hydroCHLOROthiazide 12.5 MG CAP PO SCH (09:11)
[2023-06-15] MEDS: CLOPIDOGREL 75 MG TAB PO SCH (09:11)
[2023-06-15] MEDS: LATANOPROST 0.005% OPHTH DROPS 2.5 ML BTL BOTH EYES SCH (09:11)
[2023-06-15] MEDS: GABAPENTIN 300 MG CAP PO SCH ×3 (09:11→20:37)
[2023-06-15] MEDS: DORZOLAMIDE-TIMOLOL 2.23%/0.68 10ML BTL BOTH EYES SCH ×2 (09:11→20:44)
[2023-06-15] MEDS: ACETAMINOPHEN TAB 325 MG TAB PO PRN (09:16)
[2023-06-15] MEDS: SODIUM CHLORIDE 0.9% 1,000 ML IV SCH ×2 (09:50→18:08)
--- NOTE | 2023-06-15 10:39 | US ---
EXAMINATION TYPE: US abdomen complete DATE OF EXAM: 06/15/2023 Exam done portable COMPARISON: NONE CLINICAL INDICATION: Male, 82 years old with history of abdominal pain; TECHNIQUE: Multiple sonographic images of the abdomen are obtained. FINDINGS: EXAM MEASUREMENTS: Liver Length: 14.9 cm Gallbladder Wall: 0.2 cm CBD: 0.4 cm Spleen: 12.8 cm Right Kidney: 10.3 x 5.1 x 5.4 cm Left Kidney: 10.9 x 5.5 x 5.0 cm Pancreas: obscured by overlying midline bowel gas Liver: Diffuse heterogeneity throughout the liver echotexture with no focal mass identified. There i s hepatopedal flow in the main portal vein. Gallbladder: wnl Evidence for sonographic Kidd's sign: n/a CBD: visualized portions wnl, limited by overlying bowel gas Spleen: wnl Right Kidney: cortical thinning Left Kidney: cortical thinning Upper IVC: wnl Abd Aorta: obscured by overlying midline bowel gas IMPRESSION: 1. No evidence of cholelithiasis or cholecystitis. 2. No evidence of biliary ductal dilation. 3. No evidence of hydronephrosis.
[2023-06-15 11:13] LABS: Anisocytosis Slight; Basophils % (A) 0 %; Eosinophils % (A) 1 %; HCT 32.7 % (39.0-53.0); HGB 10.4 gm/dL (13.0-17.5); Hypochromasia Moderate; Lymphocytes # (A) 0.2 k/uL (1.0-4.8); Lymphocytes % (A) 3 %; MCH 29.1 pg (25.0-35.0); MCHC 31.9 g/dL (31.0-37.0); Mean Platelet Volume 8.6; Monocytes # (A) 0.3 k/uL (0-1.0); Monocytes % (A) 6 %; Neutrophils # (A) 5.2 k/uL (1.3-7.7); Neutrophils % (A) 89 %; Platelet Count 237 k/uL (150-450); RBC 3.59 m/uL (4.30-5.90); RDW 17.3 % (11.5-15.5); WBC 5.8 k/uL (3.8-10.6)
[2023-06-15 11:31] LABS: ALT 21 U/L (4-49); AST 40 U/L (17-59); African American GFR (CKD) 87 (>60 ml/min/1.73 sqM); Albumin 2.8 g/dL (3.5-5.0); Alkaline Phosphatase 94 U/L (38-126); Anion Gap 7 mmol/L; Blood Urea Nitrogen 15 mg/dL (9-20); Calcium 7.6 mg/dL (8.4-10.2); Carbon Dioxide 23 mmol/L (22-30); Chloride 102 mmol/L (98-107); Glucose 117 mg/dL (74-99); Non-African American GFR(CKD) 75 (>60 ml/min/1.73 sqM); Sodium 132 mmol/L (137-145); Total Bilirubin 1.4 mg/dL (0.2-1.3); Total Protein 5.4 g/dL (6.3-8.2)
--- NOTE | 2023-06-15 11:47 | P.CRDCN ---
History of Present Illness Consult date: 06/15/23 Reason for Consult (text): Elevated troponins and weakness History of present illness: History of present illness: This is an 82-year-old male with PMH of CAD, PAD, HTN, HLD. Patient was last seen in the office with Dr. Thapa in 2016. He had a recent hospitalization and underwent femoral endarterectormy on 05/29/2023 followed by right groin e xploration with hematoma evacuation, open thrombetomy was performed on 05/30. We have been asked evaluate the patient for elevated troponins and weakness. Patient states he came into the hospital due to nausea, vomiting and diarrhea as well as abdominal pain. Patient denies chest pain, shortness of breath, palpitations. Patient noted to have wound infection to the right groin. EKG SR Chest x-ray: no acute process KUB: nonobstructive bowel gas pattern ABD US: no cholelithiasis, cholecystitis, biliary ductal dilation, hydronephrosis WBC 5.8, RBC 10.4. Na 131, K 4.4, BUN 13, Cr 1.08. Trops: 0.041, 0.054, 0.066. Procalcitonin 0.18 Home cardiac medications: asa 81 mg qd, plavix 75 mg qd, HCTZ 12.5 mg qd, simvastatin 40 mg qd. Cardiac cath in 07/2017: mild disease RCA, intermediate disease of the LCx and LAD. Ischeic FFR of LCX 0.78. Questionable ischemic FFR LAD. Stent of the mid LCX. Echo 04/2017: normal EF, mild LVH, MAC, aortic sclerosis. Lexiscan 04/2017: small anterior ischemia Review Of Systems: At the time of my evaluation: Constitutional: No fever, no chills. EENT: No headache. No dizziness. Lungs: No shortness of breath, cough, no sputum production. No wheezing. Cardiovascular: No chest pain, no lower extremity edema. No palpitations. No paroxysmal nocturnal dyspnea. No orthopnea. No lightheadedness or dizziness. No syncopal episodes. Abdominal: + abdominal pain. + nausea, + vomiting. + diarrhea. No constipation. No bloody or tarry stools. Musculoskeletal: No myalgias. No muscle weakness, no frequent falls. Integumentary: + wounds. No rash. Neurologic: No aphasia. No facial droop. No change in mentation. Physical examination: Gen: This is an 82-year-old male resting in bed, no acute distress VS: reviewed. Heart rate in the 70s and 80s, blood pressure 135/62, pulse ox 97% on room air, afebrile HEENT: Head is atraumatic, normocephalic. Pupils equal, round. Sclerae is anicteric. NECK: Supple. No JVD. LUNGS: Clear to auscultation. No wheezes or rhonchi. No intercostal retractions. HEART: Regular rate and rhythm. No murmur. ABDOMEN: Distended, generalized tenderness. EXTREMITIES: No pedal edema. NEUROLOGICAL: Patient is awake, alert and oriented x3. Assessment: Abd pain w N V D Wound infection Elevated troponin of unclear significance History of CAD with stent of the mid LCx 2016 PAD History of critical limb ischemia HTN HLD Plan: Continue patient's current cardiac medications Start patient on Lopressor 12.5 mg twice daily Obtain 2-D echocardiogram and Doppler study to assess cardiac structure and function Further recommendations to follow based upon clinical course Thank you kindly for this consultation. Nurse practitioner note has been reviewed, I agree with documented findings and plan of care. Patient was seen and examined. Past Medical History Past Medical History: Eye Disorder, Hyperlipidemia, Hypertension, Osteoarthritis (OA), Vascular Disorder Additional Past Medical History / Comment(s): Sciatica, PVD, GLAUCOMA, has had double vision a few times, no diagnosis. History of Any Multi-Drug Resistant Organisms: None Reported Past Surgical History: Heart Catheterization, Heart Catheterization With Stent Additional Past Surgical History / Comment(s): 3 stents in left leg, angioplasty bilateral legs, aortogram, bilateral cataracts, FEMPOP BYPASS LEFT LEG -FAILED, cysts removed from back and chest. Past Anesthesia/Blood Transfusion Reactions: No Reported Reaction Date of Last Stent Placement:: 2016 Past Psychological History: No Psychological Hx Reported Smoking Status: Former smoker Past Alcohol Use History: Rare Past Drug Use History: None Reported - Past Family History Mother Family Medical History: Diabetes Mellitus Father Family Medical History: Coronary Artery Disease (CAD), Rheumatoid Arthritis (RA) Additional Family Medical History / Comment(s): ARTERIAL SCLEROSIS Medications and Allergies Home Medications Medication Instructions Recorded Confirmed Type Dorzolamide/Timolol/Pf [Cosopt Pf 1 drop BOTH EYES BID 05/17/17 08/13/23 History 2%/0.5% Ophth Droperette] Gabapentin [Neurontin] 300 mg PO TID 11/18/17 06/14/23 History Travoprost [Travatan Z 0.004%] 1 drop BOTH EYES DAILY 12/12/18 06/14/23 History Aspirin EC [Ecotrin Low Dose] 81 mg PO PC-SUPPER #0 11/11/19 06/14/23 Rx Clopidogrel Bisulfate [Plavix] 75 mg PO QAM #0 11/11/19 06/14/23 Rx Simvastatin [Zocor] 40 mg PO HS 12/06/20 06/14/23 History hydroCHLOROthiazide [Hydrodiuril] 12.5 mg PO DAILY 12/06/20 06/14/23 History HYDROcodone/APAP 10-325MG [[place] 1 tab PO BID PRN 03/14/21 06/14/23 History 10-325] Allergies Allergy/AdvReac Type Severity Reaction Status Date / Time rivaroxaban [From Xarelto] Allergy "internal Verified 06/14/23 19:00 bleeding" Physical Exam Vitals: Vital Signs Temp Pulse Pulse Resp BP BP Pulse Ox 06/15/23 04:00 98.5 F 81 18 145/57 97 06/14/23 22:24 99.6 F 79 18 165/64 98 06/14/23 20:38 102.8 F H 06/14/23 19:00 117/41 06/14/23 18:00 122/41 06/14/23 17:00 123/50 06/14/23 16:00 74 18 147/51 06/14/23 14:51 148/46 06/14/23 12:40 98.7 F 73 16 123/67 97 Intake and Output 06/14/23 06/15/23 06/15/23 22:59 06:59 14:59 Other: # Voids 1 1 # Bowel Movements 1 Results 06/14/23 14:03 06/14/23 14:03 Cardiac Enzymes 06/14/23 06/14/23 06/14/23 Range/Units 14:03 14:03 20:58 AST 27 (17-59) U/L Troponin I 0.041 H* 0.054 H* (0.000-0.034) ng/mL 06/14/23 Range/Units 23:39 AST (17-59) U/L Troponin I 0.066 H* (0.000-0.034) ng/mL CBC 06/14/23 Range/Units 14:03 WBC 6.0 (3.8-10.6) k/uL RBC 3.59 L (4.30-5.90) m/uL Hgb 10.7 L (13.0-17.5) gm/dL Hct 32.1 L (39.0-53.0) % Plt Count 267 (150-450) k/uL Comprehensive Metabolic Panel 06/14/23 Range/Units 14:03 Sodium 131 L (137-145) mmol/L Potassium 4.4 (3.5-5.1) mmol/L Chloride 97 L (98-107) mmol/L Carbon Dioxide 24 (22-30) mmol/L BUN 13 (9-20) mg/dL Creatinine 1.08 (0.66-1.25) mg/dL Glucose 103 H (74-99) mg/dL Calcium 8.4 (8.4-10.2) mg/dL AST 27 (17-59) U/L ALT 14 (4-49) U/L Alkaline Phosphatase 125 (38-126) U/L Total Protein 6.4 (6.3-8.2) g/dL Albumin 3.5 (3.5-5.0) g/dL Current Medications Generic Name Dose Route Start Last Admin Trade Name Freq PRN Reason Stop Dose Admin Acetaminophen 650 mg 06/14/23 18:36 Acetaminophen Tab 325 Mg Tab PO Q6HR PRN Mild Pain or Fever > 100.5 Hydrocodone Bitart/Acetaminophen 1 each 06/14/23 18:38 Hydrocodone/Apap 10-325mg 1 Each Tab PO BID PRN pain Aspirin 81 mg 06/15/23 18:30 Aspirin 81 Mg PO PC-SUPPER YVETTE Atorvastatin Calcium 20 mg 06/14/23 21:00 06/14/23 22:59 Atorvastatin 20 Mg Tab PO 20 mg HS YVETTE Administration Clopidogrel Bisulfate 75 mg 06/15/23 09:00 Clopidogrel 75 Mg Tab PO QAM YVETTE Dorzolamide/Timolol 1 drops 06/14/23 21:00 06/14/23 22:59 Dorzolamide-Timolol 2.23%/0.68 10ml Btl BOTH EYES 1 drops BID YVETTE Administration Gabapentin 300 mg 06/14/23 22:00 06/14/23 23:00 Gabapentin 300 Mg Cap PO 300 mg TID YVETTE Administration Hydrochlorothiazide 12.5 mg 06/15/23 09:00 Hydrochlorothiazide 12.5 Mg Cap PO DAILY YVETTE Sodium Chloride 1,000 mls @ 75 mls/hr 06/14/23 18:45 06/14/23 20:44 Saline 0.9% IV 75 mls/hr .[id number] YVETTE Administration Latanoprost 1 drops 06/15/23 09:00 Latanoprost 0.005% Ophth Drops 2.5 Ml Btl BOTH EYES DAILY YVETTE Naloxone HCl 0.2 mg 06/14/23 18:36 Naloxone 0.4 Mg/Ml 1 Ml Vial IV Q2M PRN Opioid Reversal Intake and Output 06/14/23 06/15/23 06/15/23 22:59 06:59 14:59 Other: # Voids 1 1 # Bowel Movements 1 06/14/23 14:03 06/14/23 14:03
[2023-06-15] MEDS: METOPROLOL TARTRATE 12.5 MG TAB PO SCH ×2 (12:43→20:37)
--- NOTE | 2023-06-15 14:49 | P.GSCN ---
History of Present Illness Consult date: 06/15/23 Reason for Consult: Recent right lower extremity bypass surgery Requesting physician: Jules Diamond History of present illness: This is a 82-year-old male with history of peripheral arterial disease and history of right femoral artery occlusion with previous revascularization who also had presented to the emergency department a couple weeks ago with complaints of right lower extremity pain with disabling claudication critical limb ischemia with a right femoral and SFA occlusion who underwent right femoral endarterectomy with patch angioplasty, selective right lower extremity angiogram and right femoral to below-knee popliteal in situ bypass on 05/29/[address] David. Patient had to go back to the operating room on 05/30/2023 for right groin exploration with hematoma evacuation, hemorrhage control saphenous vein bypass bleed repair, open thrombectomy of the right femoral saphenous vein bypass and distal popliteal artery with JOSE ANGEL drain placed. Patient was then discharged on 06/03/2023 home with home care. Patient states he was having just a small amount of clear drainage from his JOSE ANGEL drain. Apparently patient did have JOSE ANGEL drain and placed yesterday in the emergency department and somehow it was pu lled out. Patient states that he came in because of overall weakness, not eating, abdominal discomfort with nausea and diarrhea. He states he's been afebrile at home however patient did have a max temperature of 102.8 on admission. He denies any pain down his right lower extremity. Sutures have been in place and he's been having drainage from the incision sites in the right groin. He currently denies any shortness of breath or chest pain, again he complains of some abdominal discomfort, no nausea or vomiting at this time. No pain down the right lower extremity. Patient was admitted for weakness, elevated troponins And patient is positive for C. diff. Review of Systems A 14 point review systems was completed all pertinent positives and negatives as stated in the HPI. Past Medical History Past Medical History: Eye Disorder, Hyperlipidemia, Hypertension, Osteoarthritis (OA), Vascular Disorder Additional Past Medical History / Comment(s): Sciatica, PVD, GLAUCOMA, has had double vision a few times, no diagnosis. History of Any Multi-Drug Resistant Organisms: None Reported Past Surgical History: Heart Catheterization, Heart Catheterization With Stent Additional Past Surgical History / Comment(s): 3 stents in left leg, angioplasty bilateral legs, aortogram, bilateral cataracts, FEMPOP BYPASS LEFT LEG -FAILED, cysts removed from back and chest. Past Anesthesia/Blood Transfusion Reactions: No Reported Reaction Date of Last Stent Placement:: 2016 Past Psychological History: No Psychological Hx Reported Smoking Status: Former smoker Past Alcohol Use History: Rare Past Drug Use History: None Reported - Past Family History Mother Family Medical History: Diabetes Mellitus Father Family Medical History: Coronary Artery Disease (CAD), Rheumatoid Arthritis (RA) Additional Family Medical History / Comment(s): ARTERIAL SCLEROSIS Medications and Allergies Home Medications Medication Instructions Recorded Confirmed Type Dorzolamide/Timolol/Pf [Cosopt Pf 1 drop BOTH EYES BID 03/18/17 06/14/23 History 2%/0.5% Ophth Droperette] Gabapentin [Neurontin] 300 mg PO TID 11/18/17 06/14/23 History Travoprost [Travatan Z 0.004%] 1 drop BOTH EYES DAILY 12/12/18 06/14/23 History Aspirin EC [Ecotrin Low Dose] 81 mg PO PC-SUPPER #0 11/11/19 06/14/23 Rx Clopidogrel Bisulfate [Plavix] 75 mg PO QAM #0 11/11/19 06/14/23 Rx Simvastatin [Zocor] 40 mg PO HS 12/06/20 06/14/23 History hydroCHLOROthiazide [Hydrodiuril] 12.5 mg PO DAILY 12/06/20 06/14/23 History HYDROcodone/APAP 10-325MG [[place] 1 tab PO BID PRN 03/14/21 06/14/23 History 10-325] Allergies Allergy/AdvReac Type Severity Reaction Status Date / Time rivaroxaban [From Xarelto] Allergy "internal Verified 06/14/23 19:00 bleeding" Surgical - Exam Vital Signs Temp Pulse Resp BP Pulse Ox 98.7 F 73 16 123/67 97 06/14/23 12:40 06/14/23 12:40 06/14/23 12:40 06/14/23 12:40 06/14/23 12:40 General appearance: The patient is alert, oriented, appears in no acute distress. HET: Head is normocephalic and atraumatic. Pupils are equal and reactive. Neck: Supple. Heart: Regular. Lungs: Equal expansion, normal respiratory effort. Abdomen: Soft, nontender, nondistended. Extremities: Normal skin color and turgor. Right lower extremity groin with sutures in place surrounded with mild erythema, firmness surrounding incision, JOSE ANGEL drain site without drainage. Palpable bypass graft, and DP pulse. Neurological: No focal deficits. Strength and sensation are grossly intact. Results - Labs 06/15/23 10:21 06/15/23 10:21 Abnormal Lab Results - Last 24 Hours (Table) 06/14/23 06/14/23 06/14/23 Range/Units 14:03 14:03 14:03 RBC 3.59 L (4.30-5.90) m/uL Hgb 10.7 L (13.0-17.5) gm/dL Hct 32.1 L (39.0-53.0) % RDW 17.4 H (11.5-15.5) % Lymphocytes # 0.2 L (1.0-4.8) k/uL Sodium 131 L (137-145) mmol/L Chloride 97 L (98-107) mmol/L Glucose 103 H (74-99) mg/dL Total Bilirubin 1.5 H (0.2-1.3) mg/dL Creatine Kinase 37 L (55-170) U/L Troponin I 0.041 H* (0.000-0.034) ng/mL Procalcitonin (0.02-0.09) ng/mL Urine Protein (Negative) Urine Ketones (Negative) Urine Bilirubin (Negative) Urine Mucus (None) /hpf 06/14/23 06/14/23 06/14/23 Range/Units 14:03 14:48 20:58 RBC (4.30-5.90) m/uL Hgb (13.0-17.5) gm/dL Hct (39.0-53.0) % RDW (11.5-15.5) % Lymphocytes # (1.0-4.8) k/uL Sodium (137-145) mmol/L Chloride (98-107) mmol/L Glucose (74-99) mg/dL Total Bilirubin (0.2-1.3) mg/dL Creatine Kinase (55-170) U/L Troponin I 0.054 H* (0.000-0.034) ng/mL Procalcitonin 0.18 H (0.02-0.09) ng/mL Urine Protein 1+ H (Negative) Urine Ketones 2+ H (Negative) Urine Bilirubin 1+ H (Negative) Urine Mucus Many H (None) /hpf 06/14/23 Range/Units 23:39 RBC (4.30-5.90) m/uL Hgb (13.0-17.5) gm/dL Hct (39.0-53.0) % RDW (11.5-15.5) % Lymphocytes # (1.0-4.8) k/uL Sodium (137-145) mmol/L Chloride (98-107) mmol/L Glucose (74-99) mg/dL Total Bilirubin (0.2-1.3) mg/dL Creatine Kinase (55-170) U/L Troponin I 0.066 H* (0.000-0.034) ng/mL Procalcitonin (0.02-0.09) ng/mL Urine Protein (Negative) Urine Ketones (Negative) Urine Bilirubin (Negative) Urine Mucus (None) /hpf Diabetes panel 06/14/23 Range/Units 14:03 Sodium 131 L (137-145) mmol/L Potassium 4.4 (3.5-5.1) mmol/L Chloride 97 L (98-107) mmol/L Carbon Dioxide 24 (22-30) mmol/L BUN 13 (9-20) mg/dL Creatinine 1.08 (0.66-1.25) mg/dL Glucose 103 H (74-99) mg/dL Calcium 8.4 (8.4-10.2) mg/dL AST 27 (17-59) U/L ALT 14 (4-49) U/L Alkaline Phosphatase 125 (38-126) U/L Total Protein 6.4 (6.3-8.2) g/dL Albumin 3.5 (3.5-5.0) g/dL Calcium panel 06/14/23 Range/Units 14:03 Calcium 8.4 (8.4-10.2) mg/dL Albumin 3.5 (3.5-5.0) g/dL Pituitary panel 06/14/23 Range/Units 14:03 Sodium 131 L (137-145) mmol/L Potassium 4.4 (3.5-5.1) mmol/L Chloride 97 L (98-107) mmol/L Carbon Dioxide 24 (22-30) mmol/L BUN 13 (9-20) mg/dL Creatinine 1.08 (0.66-1.25) mg/dL Glucose 103 H (74-99) mg/dL Calcium 8.4 (8.4-10.2) mg/dL Adrenal panel 06/14/23 Range/Units 14:03 Sodium 131 L (137-145) mmol/L Potassium 4.4 (3.5-5.1) mmol/L Chloride 97 L (98-107) mmol/L Carbon Dioxide 24 (22-30) mmol/L BUN 13 (9-20) mg/dL Creatinine 1.08 (0.66-1.25) mg/dL Glucose 103 H (74-99) mg/dL Calcium 8.4 (8.4-10.2) mg/dL Total Bilirubin 1.5 H (0.2-1.3) mg/dL AST 27 (17-59) U/L ALT 14 (4-49) U/L Alkaline Phosphatase 125 (38-126) U/L Total Protein 6.4 (6.3-8.2) g/dL Albumin 3.5 (3.5-5.0) g/dL Assessment and Plan Assessment: 1. Recent right lower extremity femoral to popliteal artery bypass with in situ vein 2. Weakness 3. Abdominal pain with nausea and diarrhea 4. Positive C. difficile 5. Elevated troponins 6. History of peripheral arterial disease Plan: 1. Right groin ultrasound ordered 2. Keep right groin clean, apply dressing daily, change as needed 3. Continue workup by cardiology 4. Antibiotics per primary medical team 5. Further recommendations forthcoming based on clinical course Thank you for this consultation, we will continue to follow. The impression and plan of care has been dictated as directed. I performed a history and examination of this patient, discussed the same with the dictator. I agree with the dictator's note ,documented as a scribe. Any additional findings or plans will be noted.
--- NOTE | 2023-06-15 16:52 | CA ---
Transthoracic Echo Report Name: Saravanan Sharma Age: 82 Gender: M : 1940 Exam Date: 06/15/2023 12:06 Exam Location: [facility] Ht (in): 52 Wt (lb): 165 Ordering Physician: Blake Barber MD Attending/Referring Phys: Associate Accountant Rafael Bhatia Procedure CPT: Indications: elevated troponin Cardiac Hx: Technical Quality: Fair Contrast 1: Total Dose (mL): Contrast 2: Total Dose (mL): MEASUREMENTS (Male / Female) Normal Values 2D ECHO LV Diastolic Diameter PLAX 4.1 cm 4.2 - 5.9 / 3.9 - 5.3 cm LV Systolic Diameter PLAX 2.7 cm IVS Diastolic Thickness 1.4 cm 0.6 - 1.0 / 0.6 - 0.9 cm LVPW Diastolic Thickness 0.9 cm 0.6 - 1.0 / 0.6 - 0.9 cm LV Relative Wall Thickness 0.6 RV Internal Dim ED PLAX 2.6 cm LV Diastolic Volume MOD BP 41.4 cm??? 67 - 155 / 56 - 104 cm??? LV Systolic Volume MOD BP 16.4 cm??? 22 - 58 / 19 - 49 cm??? LV Ejection Fraction MOD BP 60.4 % >= 55 % LV Cardiac Index MOD BP 889.8 cm???/min???m??? LV Diastolic Volume MOD 4C 50.2 cm??? LV Systolic Volume MOD 4C 16.7 cm??? LV Ejection Fraction MOD 4C 66.7 % LV Cardiac Index MOD 4C 1193.5 cm???/min???m??? LV Diastolic Length 4C 6.4 cm LV Systolic Length 4C 5.0 cm LV Diastolic Volume MOD 2C 30.3 cm??? LV Systolic Volume MOD 2C 15.4 cm??? LV Ejection Fraction MOD 2C 49.2 % LV Cardiac Index MOD 2C 530.9 cm???/min???m??? LV Diastolic Length 2C 5.7 cm LV Systolic Length 2C 4.8 cm LA Volume 45.1 cm??? 18 - 58 / 22 - 52 cm??? DOPPLER LVOT Peak Velocity 106.1 cm/s LVOT Peak Gradient 4.5 mmHg MV Peak Velocity 146.7 cm/s MV Peak Gradient 8.6 mmHg MV Mean Velocity 70.6 cm/s MV Mean Gradient 2.6 mmHg MV Velocity Time Integral 52.8 cm MR Peak Velocity 345.7 cm/s MR Peak Gradient 47.8 mmHg Mitral E Point Velocity 127.9 cm/s Mitral A Point Velocity 113.3 cm/s Mitral E to A Ratio 1.1 MV Deceleration Time 256.0 ms MV E' Velocity 7.9 cm/s Mitral E to MV E' Ratio 16.2 TR Peak Velocity 210.1 cm/s TR Peak Gradient 17.7 mmHg Right Ventricular Systolic Press 23.7 mmHg PV Peak Velocity 82.7 cm/s PV Peak Gradient 2.7 mmHg FINDINGS Left Ventricle Normal LVsize and wall thickness.left ventricular ejection fraction is estimated at 50-55 %. Right Ventricle Normal right ventricular size. RVSP= 32mmhg. Right Atrium Normal right atrial size. Left Atrium Normal left atrial size. LA volume index= 29ml/m2 Mitral Valve Structurally normal mitral valve. Mild MR. Aortic Valve Mild AV calcification. No aortic valve stenosis or regurgitation. Tricuspid Valve Structurally normal tricuspid valve. Mild TR. Pulmonic Valve Pulmonic valve not well visualized. No pulmonic regurgitation. Pericardium Normal pericardium. Aorta Normal size aortic root. CONCLUSIONS Normal LV function Mild mitral regurgitation Previewed by: Dr. Bryce Gusman MD (Electronically Signed) Final Date: 15 June 2023 16:51
--- NOTE | 2023-06-15 17:04 | US ---
EXAMINATION TYPE: US groin RT DATE OF EXAM: 06/15/2023 COMPARISON: NONE CLINICAL INDICATION: Male, 82 years old with history of redness, swelling s/p right fem bypass 3; 4-5 inch suture site rt groin arrears red with some purulent discharge. Area is rigid, and red. TECHNIQUE: several sonographic images taken at area of concern FINDINGS: small isoechoic area measured superior rt groin measurin.0x1.4x2.0cm, inferior to this area is a prominent lymph node measuring 3.0x1.4x2.3cm, inferior to this area at [employer]/CFV is another isoechoic area measurin.0x1.9x4.0cm, this area does not appear to communicate with the adjacent v asculature and does not appear to have flow at this time IMPRESSION: Prominent lymph nodes within the right groin without definitive organizing fluid collection visualize d. Findings suggest infection possibly hematoma.
--- NOTE | 2023-06-15 17:32 | P.HPIM ---
History of Present Illness H&P Date: 06/15/23 Chief Complaint: Elevated troponin dehydration weakness Saravanan Sharma, is an 82-year-old male patient who presented with concerns of increased weakness. Patient was recently admitted and discharged following a right femoral below-knee bypass. During that stay patient also developed a right groin hematoma and required ICU care. This issue did resolve the patient was DC'd home. Patient apparently has had increased weakness at home with poor appetite and abdominal discomfort. Patient has past medical history of heart cath with stents, hyperlipidemia, hypertension, vascular disease, glaucoma and ex-smoker. EKG completed showing sinus rhythm with first-degree AV block. Chest x-ray completed showing no evidence for acute pulmonary disease. KUB x- ray completed showing overall nonobstructive bowel gas pattern. Troponins positive at 0.041, 0.054 and 0.066. Patient's sodium 131. Pro calcitonin 0.18. Patient's vitals upon arrival a weighted temp at 102.8, heart rate 79, respiratory rate 18, blood pressure 165/64 with a pulse ox 98%. At this time patient was admitted. Patient given dose of Rocephin. Cardiology, vascular and infectious disease service is consulted. Blood culture ordered. Stool for C. diff ordered. Upon exam patient's abdomen slightly distended and tender. Will order ultrasound of abdomen. Patient denies chest pain or cough. Patient denies any urinary burning or frequency. Review of Systems Please refer to HPI otherwise unremarkable Past Medical History Past Medical History: Eye Disorder, Hyperlipidemia, Hypertension, Osteoarthritis (OA), Vascular Disorder Additional Past Medical History / Comment(s): Sciatica, PVD, GLAUCOMA, has had double vision a few times, no diagnosis. History of Any Multi-Drug Resistant Organisms: None Reported Past Surgical History: Heart Catheterization, Heart Catheterization With Stent Additional Past Surgical History / Comment(s): 3 stents in left leg, angioplasty bilateral legs, aortogram, bilateral cataracts, FEMPOP BYPASS LEFT LEG -FAILED, cysts removed from back and chest. Past Anesthesia/Blood Transfusion Reactions: No Reported Reaction Date of Last Stent Placement:: 2016 Past Psychological History: No Psychological Hx Reported Smoking Status: Former smoker Past Alcohol Use History: Rare Past Drug Use History: None Reported - Past Family History Mother Family Medical History: Diabetes Mellitus Father Family Medical History: Coronary Artery Disease (CAD), Rheumatoid Arthritis (RA) Additional Family Medical History / Comment(s): ARTERIAL SCLEROSIS Medications and Allergies Home Medications Medication Instructions Recorded Confirmed Type Dorzolamide/Timolol/Pf [Cosopt Pf 1 drop BOTH EYES BID 03/18/17 06/14/23 History 2%/0.5% Ophth Droperette] Gabapentin [Neurontin] 300 mg PO TID 11/18/17 06/14/23 History Travoprost [Travatan Z 0.004%] 1 drop BOTH EYES DAILY 12/12/18 06/14/23 History Aspirin EC [Ecotrin Low Dose] 81 mg PO PC-SUPPER #0 11/11/19 06/14/23 Rx Clopidogrel Bisulfate [Plavix] 75 mg PO QAM #0 11/11/19 06/14/23 Rx Simvastatin [Zocor] 40 mg PO HS 12/06/20 06/14/23 History hydroCHLOROthiazide [Hydrodiuril] 12.5 mg PO DAILY 12/06/20 06/14/23 History HYDROcodone/APAP 10-325MG [[place] 1 tab PO BID PRN 03/14/21 06/14/23 History 10-325] Allergies Allergy/AdvReac Type Severity Reaction Status Date / Time rivaroxaban [From Xarelto] Allergy "internal Verified 06/14/23 19:00 bleeding" Physical Exam Vitals: Vital Signs Temp Pulse Pulse Resp BP BP Pulse Ox 06/15/23 08:37 98.1 F 73 18 135/62 97 06/15/23 04:00 98.5 F 81 18 145/57 97 06/14/23 22:24 99.6 F 79 18 165/64 98 06/14/23 20:38 102.8 F H 06/14/23 19:00 117/41 06/14/23 18:00 122/41 06/14/23 17:00 123/50 06/14/23 16:00 74 18 147/51 06/14/23 14:51 148/46 06/14/23 12:40 98.7 F 73 16 123/67 97 Intake and Output 06/14/23 06/15/23 06/15/23 22:59 06:59 14:59 Other: # Voids 1 1 # Bowel Movements 1 Weight 74.843 kg In general patient is alert and oriented x 3 in no distress HEENT head normocephalic and atraumatic Neck is supple no JVD no goiter no lymphadenopathy no carotid bruit Chest examination is clear to auscultation no crackles no wheezing Cardiac exam reveals regular heart sounds S1 and S2 no gallops no murmurs Abdomen is soft nontender no organomegaly with normal bowel sounds Extremity exam reveals no edema no cyanosis or clubbing Neurological examination reveals no gross focal deficits Results CBC & Chem 7: 06/15/23 10:21 06/15/23 10:21 Labs: Abnormal Lab Results - Last 24 Hours (Table) 06/14/23 06/14/23 06/14/23 Range/Units 14:03 14:03 14:03 RBC 3.59 L (4.30-5.90) m/uL Hgb 10.7 L (13.0-17.5) gm/dL Hct 32.1 L (39.0-53.0) % RDW 17.4 H (11.5-15.5) % Lymphocytes # 0.2 L (1.0-4.8) k/uL Sodium 131 L (137-145) mmol/L Chloride 97 L (98-107) mmol/L Glucose 103 H (74-99) mg/dL Total Bilirubin 1.5 H (0.2-1.3) mg/dL Creatine Kinase 37 L (55-170) U/L Troponin I 0.041 H* (0.000-0.034) ng/mL Procalcitonin (0.02-0.09) ng/mL Urine Protein (Negative) Urine Ketones (Negative) Urine Bilirubin (Negative) Urine Mucus (None) /hpf 06/14/23 06/14/23 06/14/23 Range/Units 14:03 14:48 20:58 RBC (4.30-5.90) m/uL Hgb (13.0-17.5) gm/dL Hct (39.0-53.0) % RDW (11.5-15.5) % Lymphocytes # (1.0-4.8) k/uL Sodium (137-145) mmol/L Chloride (98-107) mmol/L Glucose (74-99) mg/dL Total Bilirubin (0.2-1.3) mg/dL Creatine Kinase (55-170) U/L Troponin I 0.054 H* (0.000-0.034) ng/mL Procalcitonin 0.18 H (0.02-0.09) ng/mL Urine Protein 1+ H (Negative) Urine Ketones 2+ H (Negative) Urine Bilirubin 1+ H (Negative) Urine Mucus Many H (None) /hpf 06/14/23 Range/Units 23:39 RBC (4.30-5.90) m/uL Hgb (13.0-17.5) gm/dL Hct (39.0-53.0) % RDW (11.5-15.5) % Lymphocytes # (1.0-4.8) k/uL Sodium (137-145) mmol/L Chloride (98-107) mmol/L Glucose (74-99) mg/dL Total Bilirubin (0.2-1.3) mg/dL Creatine Kinase (55-170) U/L Troponin I 0.066 H* (0.000-0.034) ng/mL Procalcitonin (0.02-0.09) ng/mL Urine Protein (Negative) Urine Ketones (Negative) Urine Bilirubin (Negative) Urine Mucus (None) /hpf Thrombosis Risk Factor Assmnt - Choose All That Apply Any of the Below Risk Factors Present?: Yes Each Factor Represents 1 point: History of prior major surgery (<1month), Obesity (BMI >25), Swollen legs (current) Other Risk Factors: Yes Each Risk Factor Represents 2 Points: Arthroscopic surgery Each Risk Factor Represents 3 Points: Age 75 years or older Other congenital or acquired thrombophilia - If yes, enter type in comment: No Thrombosis Risk Factor Assessment Total Risk Factor Score: 8 Thrombosis Risk Factor Assessment Level: High Risk Assessment and Plan Assessment: 1. Generalized weakness 2. Febrile source unclear. Chest x-ray negative. Stool for C. diff ordered. Blood culture ordered urine culture ordered. Abdomen ultrasound ordered 3. Elevated troponins cardiology service is consulted 2-D echo ordered 4. Recent from femoral bypass with secondary right groin hematoma requiring exploration and hematoma evacuation 5. History of essential hypertension 6. History of hyperlipidemia 7. History of COPD 8. History of spinal stenosis with chronic back pain 9. Hyponatremia patient was given IV fluid repeat labs ordered DVT prophylaxis heparin. GI prophylaxis Protonix Cardiology consulted for elevated troponins 2-D echo ordered Infectious disease service is consulted Vascular surgery consulted Ultrasound of abdomen ordered Blood and urine cultures ordered Repeat labs ordered PT OT service is consulted Time with Patient: Greater than 30 (Greater than 60% of the total time spent in counseling and coordination of care)
[2023-06-15] MEDS: VANCOMYCIN 125 MG CAPSULE PO SCH ×2 (17:58→20:37)
[2023-06-15] MEDS ORDERED: ASPIRIN 81 MG PO SCH (18:30)
[2023-06-15] MEDS: HEPARIN SODIUM,PORCINE 5,000 UNIT/ML 1 ML VIAL SQ SCH (20:37)
[2023-06-15] MEDS: ATORVASTATIN 20 MG TAB PO SCH (20:37)
--- NOTE | 2023-06-15 21:46 | P.CONS ---
History of Present Illness - Reason for Consult Consult date: 06/15/23 - History of Present Illness Patient is a 82-year-old male with a past medical history significant for hypertension hyperlipidemia peripheral arterial disease patient did have right femoral endarterectomy with patch angioplasty and selective right lower extremity angiogram and right femoral to below the knee popliteal in situ bypass on 05/29/2023 patient was subsequently discharged home patient now presenting ba ck to the hospital complaining of progressive weakness decreased oral intake since the patient was discharged home on 06/03/2023 patient denied any fever or chills on presentation to hospital however was complaining of slightly darker urine and some clear drainage in the JOSE ANGEL drain surgical site complaining of lightheaded and dizzy no headache or URI symptoms no chest pain shortness of breath or cough no abdominal pain or any diarrhea patient on presentation to the hospital was initially afebrile however he did spike a fever of 102.8 F last night patient was not tachycardic hypotensive or hypoxic patient did have a normal white count BUN/creatinine has been normal liver exams are normal troponi n was elevated urine was negative patient was started on Rocephin infectious he was consulted for further management of antibiotic therapy patient did have some diarrhea stool studies are currently pending collection patient denies any blood or mucus in the stool Past Medical History Past Medical History: Eye Disorder, Hyperlipidemia, Hypertension, Osteoarthritis (OA), Vascular Disorder Additional Past Medical History / Comment(s): Sciatica, PVD, GLAUCOMA, has had double vision a few times, no diagnosis. History of Any Multi-Drug Resistant Organisms: None Reported Past Surgical History: Heart Catheterization, Heart Catheterization With Stent Additional Past Surgical History / Comment(s): 3 stents in left leg, angioplasty bilateral legs, aortogram, bilateral cataracts, FEMPOP BYPASS LEFT LEG -FAILED, cysts removed from back and chest. Past Anesthesia/Blood Transfusion Reactions: No Reported Reaction Date of Last Stent Placement:: 2016 Past Psychological History: No Psychological Hx Reported Smoking Status: Former smoker Past Alcohol Use History: Rare Past Drug Use History: None Reported - Past Family History Mother Family Medical History: Diabetes Mellitus Father Family Medical History: Coronary Artery Disease (CAD), Rheumatoid Arthritis (RA) Additional Family Medical History / Comment(s): ARTERIAL SCLEROSIS Medications and Allergies Home Medications Medication Instructions Recorded Confirmed Type Dorzolamide/Timolol/Pf [Cosopt Pf 1 drop BOTH EYES BID 03/18/17 06/14/23 History 2%/0.5% Ophth Droperette] Gabapentin [Neurontin] 300 mg PO TID 11/18/17 06/14/23 History Travoprost [Travatan Z 0.004%] 1 drop BOTH EYES DAILY 12/12/18 06/14/23 History Aspirin EC [Ecotrin Low Dose] 81 mg PO PC-SUPPER #0 11/11/19 06/14/23 Rx Clopidogrel Bisulfate [Plavix] 75 mg PO QAM #0 11/11/19 06/14/23 Rx Simvastatin [Zocor] 40 mg PO HS 12/06/20 06/14/23 History hydroCHLOROthiazide [Hydrodiuril] 12.5 mg PO DAILY 12/06/20 06/14/23 History HYDROcodone/APAP 10-325MG [Black 1 tab PO BID PRN 03/14/21 06/14/23 History 10-325] Allergies Allergy/AdvReac Type Severity Reaction Status Date / Time rivaroxaban [From Xarelto] Allergy "internal Verified 06/14/23 19:00 bleeding" Physical Exam Vitals: Vital Signs Temp Pulse Pulse Resp BP BP Pulse Ox 06/15/23 10:27 73 18 06/15/23 08:37 98.1 F 73 18 135/62 97 06/15/23 04:00 98.5 F 81 18 145/57 97 06/14/23 22:24 99.6 F 79 18 165/64 98 06/14/23 20:38 102.8 F H 06/14/23 19:00 117/41 06/14/23 18:00 122/41 06/14/23 17:00 123/50 06/14/23 16:00 74 18 147/51 06/14/23 14:51 148/46 06/14/23 12:40 98.7 F 73 16 123/67 97 Intake and Output 06/14/23 06/15/23 06/15/23 22:59 06:59 14:59 Other: # Voids 1 1 # Bowel Movements 1 Weight 74.843 kg Results CBC & Chem 7: 06/15/23 10:21 06/15/23 10:21 Labs: Abnormal Lab Results - Last 24 Hours (Table) 06/14/23 06/14/2323 Range/Units 14:03 14:03 14:03 RBC 3.59 L (4.30-5.90) m/uL Hgb 10.7 L (13.0-17.5) gm/dL Hct 32.1 L (39.0-53.0) % RDW 17.4 H (11.5-15.5) % Lymphocytes # 0.2 L (1.0-4.8) k/uL Sodium 131 L (137-145) mmol/L Chloride 97 L (98-107) mmol/L Glucose 103 H (74-99) mg/dL Total Bilirubin 1.5 H (0.2-1.3) mg/dL Creatine Kinase 37 L (55-170) U/L Troponin I 0.041 H* (0.000-0.034) ng/mL Procalcitonin (0.02-0.09) ng/mL Urine Protein (Negative) Urine Ketones (Negative) Urine Bilirubin (Negative) Urine Mucus (None) /hpf 06/14/23 06/14/23 06/14/23 Range/Units 14:03 14:48 20:58 RBC (4.30-5.90) m/uL Hgb (13.0-17.5) gm/dL Hct (39.0-53.0) % RDW (11.5-15.5) % Lymphocytes # (1.0-4.8) k/uL Sodium (137-145) mmol/L Chloride (98-107) mmol/L Glucose (74-99) mg/dL Total Bilirubin (0.2-1.3) mg/dL Creatine Kinase (55-170) U/L Troponin I 0.054 H* (0.000-0.034) ng/mL Procalcitonin 0.18 H (0.02-0.09) ng/mL Urine Protein 1+ H (Negative) Urine Ketones 2+ H (Negative) Urine Bilirubin 1+ H (Negative) Urine Mucus Many H (None) /hpf 06/14/23 Range/Units 23:39 RBC (4.30-5.90) m/uL Hgb (13.0-17.5) gm/dL Hct (39.0-53.0) % RDW (11.5-15.5) % Lymphocytes # (1.0-4.8) k/uL Sodium (137-145) mmol/L Chloride (98-107) mmol/L Glucose (74-99) mg/dL Total Bilirubin (0.2-1.3) mg/dL Creatine Kinase (55-170) U/L Troponin I 0.066 H* (0.000-0.034) ng/mL Procalcitonin (0.02-0.09) ng/mL Urine Protein (Negative) Urine Ketones (Negative) Urine Bilirubin (Negative) Urine Mucus (None) /hpf Assessment and Plan Plan: 1patient presented hospital with generalized weakness feeling lightheaded and dizzy in this patient with recent extensive vascular surgery on the right lower extremity for critical limb ischemia patient did have minimal serous drainage from the right groin however overall no cellulitis was noticed patient did have some diarrhea and some tenderness to the left lower quadrant area with a question of possible colitis stool studies are currently pending 2-blood cultures have been obtained which are currently pending urine is negative and no evidence of any pneumonia 3-May continue empiric Rocephin while awaiting further work-up to be completed We will follow on clinical condition and cultures to further adjust medication if needed Thank you for this consultation we will follow the patient along with you Dictation was produced using [employer] dictation software. please excuse any grammatical, word or spelling errors. Time with Patient: Greater than 30
[2023-06-16] MEDS: SODIUM CHLORIDE 0.9% 1,000 ML IV SCH ×2 (06:45→21:06)
[2023-06-16] MEDS: PANTOPRAZOLE 40 MG TABLET PO SCH (06:45)
[2023-06-16 07:25] LABS: ALT 24 U/L (4-49); AST 50 U/L (17-59); African American GFR (CKD) >90 (>60 ml/min/1.73 sqM); Albumin 2.8 g/dL (3.5-5.0); Alkaline Phosphatase 96 U/L (38-126); Anion Gap 9 mmol/L; Blood Urea Nitrogen 17 mg/dL (9-20); Calcium 7.8 mg/dL (8.4-10.2); Carbon Dioxide 21 mmol/L (22-30); Chloride 103 mmol/L (98-107); Glucose 97 mg/dL (74-99); Non-African American GFR(CKD) 79 (>60 ml/min/1.73 sqM); Potassium 4.1 mmol/L (3.5-5.1); Sodium 133 mmol/L (137-145); Total Bilirubin 1.7 mg/dL (0.2-1.3); Total Protein 5.3 g/dL (6.3-8.2)
[2023-06-16 07:45] LABS: Anisocytosis Slight; Basophils % (A) 0 %; Eosinophils % (A) 1 %; HCT 35.3 % (39.0-53.0); HGB 11.1 gm/dL (13.0-17.5); Hypochromasia Marked; Lymphocytes # (A) 0.2 k/uL (1.0-4.8); Lymphocytes % (A) 4 %; MCH 29.3 pg (25.0-35.0); MCHC 31.5 g/dL (31.0-37.0); MCV 93.1 fL (80.0-100.0); Mean Platelet Volume 9.1; Monocytes # (A) 0.3 k/uL (0-1.0); Monocytes % (A) 5 %; Neutrophils # (A) 4.4 k/uL (1.3-7.7); Neutrophils % (A) 87 %; Platelet Count 230 k/uL (150-450); Poikilocytosis Slight; RBC 3.79 m/uL (4.30-5.90); WBC 5.1 k/uL (3.8-10.6)
[2023-06-16] MEDS: hydroCHLOROthiazide 12.5 MG CAP PO SCH (08:29)
[2023-06-16] MEDS: DORZOLAMIDE-TIMOLOL 2.23%/0.68 10ML BTL BOTH EYES SCH ×2 (08:29→20:24)
[2023-06-16] MEDS: VANCOMYCIN 125 MG CAPSULE PO SCH ×4 (08:29→21:02)
[2023-06-16] MEDS: HYDROcodone/APAP 10-325MG 1 EACH TAB PO PRN (08:30)
[2023-06-16] MEDS: GABAPENTIN 300 MG CAP PO SCH ×3 (08:30→21:05)
[2023-06-16] MEDS: CLOPIDOGREL 75 MG TAB PO SCH (08:30)
[2023-06-16] MEDS: METOPROLOL TARTRATE 12.5 MG TAB PO SCH ×2 (08:30→20:25)
[2023-06-16] MEDS: HEPARIN SODIUM,PORCINE 5,000 UNIT/ML 1 ML VIAL SQ SCH (08:30)
[2023-06-16] MEDS: LATANOPROST 0.005% OPHTH DROPS 2.5 ML BTL BOTH EYES SCH (08:31)
--- NOTE | 2023-06-16 10:22 | P.PN ---
Subjective Progress Note Date: 06/16/23 History of present illness: This is an 82-year-old male with PMH of CAD, PAD, HTN, HLD. Patient was last s een in the office with Dr. Thapa in 2016. He had a recent hospitalization and underwent femoral endarterectormy on 05/29/2023 followed by right groin exploration with hematoma evacuation, open thrombetomy was performed on 05/30. We have been asked evaluate the patient for elevated troponins and weakness. Patient states he came into the hospital due to nausea, vomiting and diarrhea as well as abdominal pain. Patient denies chest pain, shortness of breath, palpitations. Patient noted to have wound infection to the right groin. EKG SR Chest x-ray: no acute process KUB: nonobstructive bowel gas pattern ABD US: no cholelithiasis, cholecystitis, biliary ductal dilation, hydronephrosis WBC 5.8, RBC 10.4. Na 131, K 4.4, BUN 13, Cr 1.08. Trops: 0.041, 0.054, 0.066. Procalcitonin 0.18 Home cardiac medications: asa 81 mg qd, plavix 75 mg qd, HCTZ 12.5 mg qd, simvastatin 40 mg qd. Cardiac cath in 07/2017: mild disease RCA, intermediate disease of the LCx and LAD. Ischeic FFR of LCX 0.78. Questionable ischemic FFR LAD. Stent of the mid LCX. Echo 04/2017: normal EF, mild LVH, MAC, aortic sclerosis. Lexiscan 04/2017: small anterior ischemia 06/16 Patient is seen today in follow-up. He is still having some abdominal pain but slightly less from yesterday. He states earlier he may have had some mid sternal chest pain but that has resolved. Echocardiogram reveals normal LV function. Mild mitral regurgitation. Heart rate is in the 60s 80, blood pressure 131/62, pulse ox 94% on room air, afebrile. Repeat blood work reveals hemoglobin 11.1, WBC 5.1. Sodium 133, potassium 4.1, creatinine 0.89. C. difficile toxin positive. Physical examination: Gen: This is an 82-year-old male resting in bed, no acute distress VS: reviewed. Heart rate in the 70s and 80s, blood pressure 135/62, pulse ox 97% on room air, afebrile HEENT: Head is atraumatic, normocephalic. Pupils equal, round. Sclerae is anicteric. NECK: Supple. No JVD. LUNGS: Clear to auscultation. No wheezes or rhonchi. No intercostal retractions. HEART: Regular rate and rhythm. No murmur. ABDOMEN: Distended, generalized tenderness. EXTREMITIES: No pedal edema. NEUROLOGICAL: Patient is awake, alert and oriented x3. Assessment: Abd pain w N V D secondary to C. difficile colitis Wound infection Elevated troponin a possible non-ST elevated [place] cannot be ruled out although echocardiogram is showing normal function. History of CAD with stent of the mid LCx 2017 PAD History of critical limb ischemia HTN HLD Plan: Continue patient's current cardiac medications Continue patient on Lopressor 12.5 mg twice daily Increase statin to 40 mg daily Continue workup and treatment of GI symptoms and surgical wound infection Further recommendations to follow based upon clinical course Nurse practitioner note has been reviewed, I agree with documented findings and plan of care. Patient was seen and examined. Objective - Vital Signs Vital signs: Vital Signs Temp 97.6 F 06/16/23 08:00 Pulse 64 06/16/23 08:00 Resp 18 06/16/23 08:00 BP 131/62 06/16/23 08:00 Pulse Ox 94 L 06/16/23 08:00 FiO2 Intake & Output 06/15/23 06/16/23 06/16/23 18:59 06:59 18:59 Output Total 150 750 Balance -150 -750 Weight 74.843 kg 72.5 kg Output: Urine 150 750 Other: # Bowel Movements 1 - Labs CBC & Chem 7: 06/16/23 06:26 06/16/23 06:26 Labs: Abnormal Lab Results - Last 24 Hours (Table) 06/15/23 06/15/23 06/15/23 Range/Units 10:21 10:21 11:13 RBC 3.59 L (4.30-5.90) m/uL Hgb 10.4 L (13.0-17.5) gm/dL Hct 32.7 L (39.0-53.0) % RDW 17.3 H (11.5-15.5) % Lymphocytes # 0.2 L (1.0-4.8) k/uL Sodium 132 L (137-145) mmol/L Carbon Dioxide (22-30) mmol/L Glucose 117 H (74-99) mg/dL Calcium 7.6 L (8.4-10.2) mg/dL Total Bilirubin 1.4 H (0.2-1.3) mg/dL Total Protein 5.4 L (6.3-8.2) g/dL Albumin 2.8 L (3.5-5.0) g/dL C. difficile (EIA) Intrp Positive A (Negative) 06/16/23 06/16/23 Range/Units 06:26 06:26 RBC 3.79 L (4.30-5.90) m/uL Hgb 11.1 L (13.0-17.5) gm/dL Hct 35.3 L (39.0-53.0) % RDW 17.0 H (11.5-15.5) % Lymphocytes # 0.2 L (1.0-4.8) k/uL Sodium 133 L (137-145) mmol/L Carbon Dioxide 21 L (22-30) mmol/L Glucose (74-99) mg/dL Calcium 7.8 L (8.4-10.2) mg/dL Total Bilirubin 1.7 H (0.2-1.3) mg/dL Total Protein 5.3 L (6.3-8.2) g/dL Albumin 2.8 L (3.5-5.0) g/dL C. difficile (EIA) Intrp (Negative)
--- NOTE | 2023-06-16 12:34 | P.PN ---
Subjective Progress Note Date: 06/16/23 Principal diagnosis: Weakness Patient seen and examined today as a follow-up. Patient started having sanguinous drainage from his incision site in the right groin. The patient also was positive for C. diff. Having frequent loose stools. He he denies any acute abdominal pain at this time. He does have some tenderness in the right lower abdomen. Hemoglobin stable at 11.1 today. Patient is afebrile. Right groin ultrasound reported prominent lymph nodes within the right groin without definitive organized fluid collection visualized. Findings suggest infection possibly hematoma. Objective - Vital Signs Vital signs: Vital Signs Temp 97.6 F 06/16/23 08:00 Pulse 64 06/16/23 08:00 Resp 18 06/16/23 08:00 BP 131/62 06/16/23 08:00 Pulse Ox 94 L 06/16/23 08:00 FiO2 Intake & Output 06/15/23 06/16/23 06/16/23 18:59 06:59 18:59 Output Total 150 750 Balance -150 -750 Weight 74.843 kg 72.5 kg Output: Urine 150 750 Other: # Bowel Movements 1 - Exam General appearance: The patient is alert, oriented, appears in no acute distress. HET: Head is normocephalic and atraumatic. Pupils are equal and reactive. Neck: Supple. Heart: Regular. Lungs: Equal expansion, normal respiratory effort. Abdomen: Soft, right lower abdomen tender, firm. Extremities: Right groin with surgical incision with sutures in place with serous drainage. Surrounding area of firm, likely hematoma/seroma. Neurological: No focal deficits. Strength and sensation are grossly intact. - Labs CBC & Chem 7: 06/16/23 06:26 06/16/23 06:26 Labs: Abnormal Lab Results - Last 24 Hours (Table) 06/15/23 06/15/23 06/15/23 Range/Units 10:21 10:21 11:13 RBC 3.59 L (4.30-5.90) m/uL Hgb 10.4 L (13.0-17.5) gm/dL Hct 32.7 L (39.0-53.0) % RDW 17.3 H (11.5-15.5) % Lymphocytes # 0.2 L (1.0-4.8) k/uL Sodium 132 L (137-145) mmol/L Carbon Dioxide (22-30) mmol/L Glucose 117 H (74-99) mg/dL Calcium 7.6 L (8.4-10.2) mg/dL Total Bilirubin 1.4 H (0.2-1.3) mg/dL Total Protein 5.4 L (6.3-8.2) g/dL Albumin 2.8 L (3.5-5.0) g/dL C. difficile (EIA) Intrp Positive A (Negative) 06/16/23 06/16/23 Range/Units 06:26 06:26 RBC 3.79 L (4.30-5.90) m/uL Hgb 11.1 L (13.0-17.5) gm/dL Hct 35.3 L (39.0-53.0) % RDW 17.0 H (11.5-15.5) % Lymphocytes # 0.2 L (1.0-4.8) k/uL Sodium 133 L (137-145) mmol/L Carbon Dioxide 21 L (22-30) mmol/L Glucose (74-99) mg/dL Calcium 7.8 L (8.4-10.2) mg/dL Total Bilirubin 1.7 H (0.2-1.3) mg/dL Total Protein 5.3 L (6.3-8.2) g/dL Albumin 2.8 L (3.5-5.0) g/dL C. difficile (EIA) Intrp (Negative) Assessment and Plan Assessment: 1. Recent right lower extremity femoral to popliteal artery bypass with in situ vein 2. Right groin hematoma at surgical site with sanguinous drainage 3. Weakness 4. Abdominal pain with nausea and diarrhea 5. Positive C. difficile 6. Elevated troponins 7. History of peripheral arterial disease Plan: 1. Right groin pressure dressing in place 2. Keep right groin clean, apply dressing daily, change as needed 3. Continue workup by cardiology 4. Antibiotics per primary medical team 5. Right groin ultrasound ordered and reviewed 6. CTA abdomen and pelvis ordered 7. Further recommendations forthcoming per vascular surgeon Thank you for this consultation, we will continue to follow. The impression and plan of care has been dictated as directed. Dr. Varner I performed a history and examination of this patient, discussed the same with the dictator. I agree with the dictator's note ,documented as a scribe. Any additional findings or plans will be noted. Change in drainage from serosanguineous to bloody. Plan for operative evaluation after computed tomography scan reviewed showing extravasation. Discussion had with the patient as well as son. Risks and benefits discussed including but not limited to bleeding, infection, loss of life, loss of limb, cardiopulmonary risks. They seemingly understand and are in agreement with proceeding.
--- NOTE | 2023-06-16 13:44 | CT ---
EXAMINATION TYPE: CT angio abdomen pelvis CT DLP: 2108.2 mGycm, Automated exposure control for dose reduction was used. DATE OF EXAM: 06/16/2023 1:25 PM COMPARISON: 12/13/2018 CLINICAL INDICATION:Male, 82 years old with history of bleeding from right groin, s/p fem/pop bypass inci; , Bleeding from right groin. TECHNIQUE: Multiple thin slice sub-millimeter images were obtained through the abdomen, pelvis, after administration of contrast. 3-D reconstructed images and maximum intensity projection images were o btained of the abdomen, pelvis, and lower extremities. CT Contrast: Contrast used:100ml mL of Isovue 370 without and with IV Contrast, Oral contrast used: without Oral Contrast None FINDINGS: CTA Abdomen and pelvis: No evidence for intramural hematoma on noncontrast imaging. This at this cour se of the arterial vascular. No evidence for aneurysm. No evidence for dissection on postcontrast halima ging. The visualized major branches of the abdominal aorta are patent. There is a hematoma along the right anterior lower abdomen/inguinal region measuring up to 19.0 x 4.3 x7.7 cm. There is active arterial extravasation within this region thought to be coming from the com mon femoral artery near the level of the inferior epigastric artery takeoff. This is on series 501 im age 89. LOWER CHEST: No evidence of focal consolidation, pneumothorax. Trace bilateral pleural effusions. LIVER: Unremarkable GALLBLADDER AND BILE DUCTS: Unremarkable. PANCREAS: Unremarkable. SPLEEN: Unremarkable. ADRENAL GLANDS: Unremarkable. KIDNEYS AND URETERS: No evidence of hydronephrosis or renal calculus. The ureters are unremarkable. PELVIS BLADDER: Suspected right posterior lateral bladder diverticula. Mildly increased in size from 2019. REPRODUCTIVE: Unremarkable. ABDOMEN & PELVIS STOMACH AND BOWEL: No evidence of bowel obstruction. Scattered colonic diverticula. PERITONEUM: No evidence of pneumoperitoneum or free fluid. VASCULATURE: No evidence of aortic aneurysm. MUSCULOSKELETAL: No acute osseous abnormalities LYMPH NODES: No gross evidence for lymphadenopathy. SOFT TISSUE/ABDOMINAL WALL: IMPRESSION: 1. There is a hematoma along the right anterior lower abdomen/inguinal region measuring up to 19.0 x 4.3 x7.7 cm. There is active arterial extravasation within this region thought to be coming from the common femoral artery near the level of the inferior epigastric artery takeoff. Vascular surgery con sultation recommended. 2. Trace bilateral pleural effusion. 3. No evidence for aortic dissection or aneurysmal dilation. 4. Moderate atherosclerotic disease.
--- NOTE | 2023-06-16 15:11 | P.PN ---
Subjective Progress Note Date: 06/16/23 Principal diagnosis: C. diff colitis Patient is a 82-year-old male with a past medical history significant for hypertension hyperlipidemia peripheral arterial disease patient did have right femoral endarterectomy with patch angioplasty and selective right lower extremity angiogram and right femoral to below the knee popliteal in situ bypass on 05/29/2023, presented to hospital with weakness and decreased oral intake did have diarrhea and a fever stool for C. diff came back positive. On today's evaluation that is 06/16/2023, the patient is afebrile the patient is breathing comfortably on room air denies any chest pain shortness of breath or cough no nausea no vomiting still have significant diarrhea per the nursing staff patient also noticed to have a bleeding from his right groin currently with the tight dressing on Patient did have a white count of 5.1 hemoglobin is 11.1 creatinine 0.89, blood cultures so far pending Objective - Vital Signs Vital signs: Vital Signs Temp 97.6 F 06/16/23 08:00 Pulse 72 06/16/23 12:00 Resp 18 06/16/23 12:00 BP 160/64 06/16/23 12:00 Pulse Ox 94 L 06/16/23 12:00 FiO2 Intake & Output 06/15/23 06/16/23 06/16/23 18:59 06:59 18:59 Output Total 150 750 400 Balance -150 -750 -400 Weight 74.843 kg 72.5 kg Output: Urine 150 750 400 Other: # Bowel Movements 1 1 - Exam GENERAL DESCRIPTION: An elderly male lying in bed in no distress RESPIRATORY SYSTEM: Unlabored breathing , decreased breath sounds at bases HEART: S1 S2 regular rate and rhythm , ABDOMEN: Soft , no tenderness EXTREMITIES: No edema feet - Labs CBC & Chem 7: 06/16/23 06:26 06/16/23 06:26 Labs: Abnormal Lab Results - Last 24 Hours (Table) 06/15/23 06/16/23 06/16/23 Range/Units 11:13 06:26 06:26 RBC 3.79 L (4.30-5.90) m/uL Hgb 11.1 L (13.0-17.5) gm/dL Hct 35.3 L (39.0-53.0) % RDW 17.0 H (11.5-15.5) % Lymphocytes # 0.2 L (1.0-4.8) k/uL Sodium 133 L (137-145) mmol/L Carbon Dioxide 21 L (22-30) mmol/L Calcium 7.8 L (8.4-10.2) mg/dL Total Bilirubin 1.7 H (0.2-1.3) mg/dL Total Protein 5.3 L (6.3-8.2) g/dL Albumin 2.8 L (3.5-5.0) g/dL C. difficile (EIA) Intrp Positive A (Negative) Microbiology - Last 24 Hours (Table) 06/14/23 21:04 Blood Culture - Preliminary Blood Assessment and Plan (1) C. difficile colitis Current Visit: Yes Status: Acute Code(s): A04.72 - ENTEROCOLITIS D/T CLOSTRIDIUM DIFFICILE, NOT SPCF RECUR SNOMED Code(s): 330990648 Plan: 1patient presented hospital with generalized weakness feeling lightheaded and dizzy in this patient with recent extensive vascular surgery on the right lower extremity for critical limb ischemia patient did have minimal serous drainage from the right groin however overall no cellulitis was noticed patient did have some diarrhea and some tenderness to the left lower quadrant area with a question of possible colitis, stool for C. diff came back positive 2-patient to continue with the oral vancomycin will add Questran for symptomatic relief of his diarrhea Dictation was produced using [employer] dictation software. please excuse any grammatical, word or spelling errors. Time with Patient: Less than 30
[2023-06-16] MEDS ORDERED: LACTATED RINGERS 1,000 ML IV ONE ×2 (15:16→17:16)
--- NOTE | 2023-06-16 15:35 | P.PN ---
Progress Note - Text Progress Note Date: 06/16/23 Patient seen and examined this morning by nurse practitioner. Found to have bleeding from groin. Stat CT angiogram was performed even in light of normal- appearing ultrasound. After review, there does appear to be active extravasation from the right femoral artery. We'll plan at this time to take patient emergently to the OR for right femoral exploration with control of hemorrhage. Discussed with him that it may require angiogram for possible endovascular intervention as well. He seemingly understands and is willing to proceed. A phone call will be made to his son in regards to this.
[2023-06-16] MEDS ORDERED: ROCURONIUM 10 MG/ML (5 ML VIAL) IV ONE (15:55)
[2023-06-16] MEDS ORDERED: GLYCOPYRROLATE 0.2 MG/ML 2 ML VIAL ONE (15:55)
[2023-06-16] MEDS ORDERED: SUCCINYLCHOLINE CHLORIDE 200 MG/10 ML VIAL IV ONE (15:55)
[2023-06-16] MEDS ORDERED: LIDOCAINE 2% INJ 20 MG/ML (2 ML VIAL) ONE (15:55)
[2023-06-16] MEDS ORDERED: KETAMINE 10 MG/ML 20 ML VIAL ONE (15:55)
[2023-06-16] MEDS ORDERED: NEOSTIGMINE 1 MG/ML 10 ML VIAL ONE (15:55)
[2023-06-16] MEDS ORDERED: PROPOFOL 10 MG/ML 20 ML VIAL IV ONE (15:55)
[2023-06-16] MEDS ORDERED: fentaNYL (PF) 50 MCG/ML 2 ML AMP ONE (15:55)
--- NOTE | 2023-06-16 17:32 | P.OP ---
Date of Procedure: 06/16/23 Description of Procedure: Preoperative diagnosis: Right groin hematoma, active bleeding, previous right femoral below-knee bypass in situ vein Postoperative diagnosis: Same Procedure: Right femoral cutdown, redo groin Right femoral exploration, control of hemorrhage Surgeon: Grace Varner D.O. EBL: 1 50 mL IV fluids: See records Urine output: 300 mL Drains: None Complications: None immediately apparent Condition: Stable to recovery Operative indication and findings: Patient is an 82-year-old male who recently underwent a right femoral to below knee saphenous vein in situ bypass with urgent take back for bleeding. He was discharged from the hospital and subsequently was recovering well. Urethra presented earlier this week for findings of malaise and diarrhea. Found to be positive for C. diff. He had an area of hematoma in his right groin and had changes from serous-appearing drainage 2 more bloody in appearance. A CT angiogram performed showing active extravasation from the femoral artery therefore urgent take back was recommended. Risks and benefits were discussed with the patient and his son over the phone seemingly understood and were willing to proceed. Procedure in detail: The patient was taken to the operative suite and placed in supine position. Bilateral groins were prepped and draped in usual sterile fashion. A all parties were in agreement. Previous nylon sutures revealing evidence of old blood and hematoma. The previous incision was opened down to the level of the femoral artery and the previous hematoma was removed. Upon evaluation there were 2 focal spots of the patch that had active bleeding and this was controlled with interrupted sutures of 6-0 Prolene. There is no further evidence of active bleeding, the groin was then copiously irrigated and hemostatic agent was placed. Interrupted sutures of 3-0 Vicryl were attempted but difficult to perform due to the nature of the tissue. A JOSE ANGEL drain was placed. The skin was reapproximated with interrupted vertical mattress sutures of 3-0 nylon. Dressing was placed. The patient was allowed awaken from anesthesia and transferred to recovery in stable condition having tolerated the procedure well. He has maintained a palpable pulse in his bypass graft.
[2023-06-16] MEDS ORDERED: ALBUTEROL NEBULIZED 2.5 MG/3 ML INHALATION ONE (17:40)
[2023-06-16] MEDS ORDERED: LABETALOL SYRINGE 5 MG/ML (4 ML SYR) IVP ONE (18:15)
[2023-06-16 18:40] LABS: Glucose,Whole Blood 105 mg/dL (70-110)
[2023-06-16] MEDS: ATORVASTATIN 40 MG TAB PO SCH (20:25)
[2023-06-16] MEDS: CHOLESTYRAMINE (WITH SUGAR) 4 GM PACKET PO SCH (20:26)
--- NOTE | 2023-06-16 20:29 | P.PN ---
Subjective Progress Note Date: 06/16/23 Saravanan Sharma, is an 82-year-old male patient who presented with concerns of increased weakness. Patient was recently admitted and discharged following a right femoral below-knee bypass. During that stay patient also developed a right groin hematoma and required ICU care. This issue did resolve the patient was DC'd home. Patient apparently has had increased weakness at home with poor appetite and abdominal discomfort. Patient has past medical history of heart cath with stents, hyperlipidemia, hypertension, vascular disease, glaucoma and ex-smoker. EKG completed showing sinus rhythm with first-degree AV block. Chest x-ray completed showing no evidence for acute pulmonary disease. KUB x-r ay completed showing overall nonobstructive bowel gas pattern. Troponins positive at 0.041, 0.054 and 0.066. Patient's sodium 131. Pro calcitonin 0.18. Patient's vitals upon arrival a weighted temp at 102.8, heart rate 79, respiratory rate 18, blood pressure 165/64 with a pulse ox 98%. At this time patient was admitted. Patient given dose of Rocephin. Cardiology, vascular and infectious disease service is consulted. Blood culture ordered. Stool for C. diff ordered. Upon exam patient's abdomen slightly distended and tender. Will order ultrasound of abdomen. Patient denies chest pain or cough. Patient denies any urinary burning or frequency. On 06/16/2023 patient was seen and examined on the medical floor he is alert and oriented 3 in no apparent distress, there is no fever or chills no headache or dizziness no chest pain no shortness of breath no cough no nausea or vomiting no abdominal pain, patient is still having some diarrhea he has no urinary symptoms, he was evaluated by Dr. Varner, and will be taken emergently to the operating room, due to right groin hematoma and active bleeding. Objective - Vital Signs Vital signs: Vital Signs Temp 97.6 F 06/16/23 08:00 Pulse 72 06/16/23 13:13 Resp 18 06/16/23 12:00 BP 160/64 06/16/23 12:00 Pulse Ox 94 L 06/16/23 12:00 FiO2 Intake & Output 06/15/23 06/16/23 06/16/23 18:59 06:59 18:59 Output Total 150 750 400 Balance -150 -750 -400 Weight 74.843 kg 72.5 kg Output: Urine 150 750 400 Other: # Bowel Movements 1 1 - Exam In general patient is alert and oriented x 3 in no distress HEENT head normocephalic and atraumatic Neck is supple no JVD no goiter no lymphadenopathy no carotid bruit Chest examination is clear to auscultation no crackles no wheezing Cardiac exam reveals regular heart sounds S1 and S2 no gallops no murmurs Abdomen is soft nontender no organomegaly with normal bowel sounds Extremity exam reveals no edema no cyanosis or clubbing Neurological examination reveals no gross focal deficits - Labs CBC & Chem 7: 06/16/23 06:26 06/16/23 06:26 Labs: Abnormal Lab Results - Last 24 Hours (Table) 06/15/23 06/16/23 06/16/23 Range/Units 11:13 06:26 06:26 RBC 3.79 L (4.30-5.90) m/uL Hgb 11.1 L (13.0-17.5) gm/dL Hct 35.3 L (39.0-53.0) % RDW 17.0 H (11.5-15.5) % Lymphocytes # 0.2 L (1.0-4.8) k/uL Sodium 133 L (137-145) mmol/L Carbon Dioxide 21 L (22-30) mmol/L Calcium 7.8 L (8.4-10.2) mg/dL Total Bilirubin 1.7 H (0.2-1.3) mg/dL Total Protein 5.3 L (6.3-8.2) g/dL Albumin 2.8 L (3.5-5.0) g/dL C. difficile (EIA) Intrp Positive A (Negative) Microbiology - Last 24 Hours (Table) 06/14/23 21:04 Blood Culture - Preliminary Blood Assessment and Plan Assessment: 1. Generalized weakness 2. Febrile source unclear. Chest x-ray negative. Stool for C. diff ordered. Blood culture ordered urine culture ordered. Abdomen ultrasound ordered 3. Elevated troponins cardiology service is consulted 2-D echo ordered 4. Recent from femoral bypass with secondary right groin hematoma requiring exploration and hematoma evacuation 5. History of essential hypertension 6. History of hyperlipidemia 7. History of COPD 8. History of spinal stenosis with chronic back pain 9. Hyponatremia patient was given IV fluid repeat labs ordered DVT prophylaxis heparin. GI prophylaxis Protonix Cardiology consulted for elevated troponins 2-D echo ordered Infectious disease service is consulted Vascular surgery consulted Ultrasound of abdomen ordered Blood and urine cultures ordered Repeat labs ordered PT OT service is consulted
--- NOTE | 2023-06-17 03:31 | P.CNPUL ---
History of Present Illness Consult date: 06/17/23 Requesting physician: Grace Varner Reason for consult: other (ICU management) Chief complaint: Nausea, vomiting, diarrhea; incidental finding of right groin hematoma History of present illness: I am seeing this patient in new consultation today 06/17/2023 in the intensive care unit, patient is currently postoperative day #1 following a right femoral exploration with cut down and control of hemorrhage. Patient is a 82-year-old white male with past medical history significant for hyperlipidemia, hypertension, coronary artery disease with prior coronary stents, and peripheral arterial disease with recent right femoral endarterectomy with patch angioplasty and femoral-popliteal bypass on 05/29/2023. This was complicated with postoperative bleeding and right groin hematoma, and the patient did return to the OR the following day for right groin exploration with hematoma evacuation and saphenous vein bypass repair. There was open thrombectomy of the right femoral, saphenous vein bypass, and distal popliteal artery. He was discharged home on June 03. The patient did return to the emergency room on mostly complaining of nausea, vomiting, and diarrhea. The patient was found to be positive for C. diff, and placed on oral vancomycin. An abdomen and pelvis CT angiogram showed a 19 x 4.3 x 7.7 cm right anterior lower abdominal/inguinal region hematoma. There appeared to be extravasation within this region thought to be coming from the right common femoral artery. The patient was emergently taken to the operating room, and is postoperative day #1 following a right femoral exploration with cut down and control of hemorrhage. Documented EBL was only 150 ML's. Patient is currently lying in bed, supine, in no acute distress. He is on 2 L/m nasal cannula oxygenating at 100%, and this probably can be weaned off. Patient's right groin has an incisional dressing that is clean, dry. Right groin is firm without any obvious acute bleeding noted. There is a JOSE ANGEL drain with a small amount of serosanguineous output. Bilateral lower extremity neurovascular status appears intact. Patient's nausea, vomiting, diarrhea has reportedly improved since his admission to the hospital and initiation of oral Vanco. Most recent CBC shows WBC count of 5.1, hemoglobin st able at 11.1, hematocrit 35.3, and platelets 230. Most recent BMP from yesterday shows a sodium 133, potassium 4.1, chloride 103, serum bicarbonate 21, BUN 17, creatinine 0.89, glucose 97. Troponins were mildly elevated at 0.041, 54, and 0.066 respectively. Patient denies any chest pain. No obvious acute ischemic changes seen on ECG. Normal saline is infusing at 75 mL per hour. Urine output is adequate, urine looks concentrated. Patient is hemodynamically stable at this point, and will be monitored in the intensive care unit overnight. Review of Systems REVIEW OF SYSTEMS: CONSTITUTIONAL: Denies any recent significant weight loss or weight gain. EYES: Denies change in vision. EARS, NOSE, MOUTH, THROAT: Denies headaches, denies sore throat. CARDIOVASCULAR: Denies chest pain, palpitations or syncopal episodes. RESPIRATORY: Denies shortness of breath, cough, congestion or hemoptysis. GASTROINTESTINAL: Denies change in appetite, abdominal pain. Admits nausea, vomiting, and diarrhea which has improved GENITOURINARY: Denies hematuria, denies infections. MUSKULOSKELETAL: Denies pain, denies swelling. INTEGUMENTARY: Denies rash, denies eczema. NEUROLOGICAL: Denies recent memory loss, no recent seizure activity. PSYCHIATRIC: Denies anxiety, denies depression. HEMATOLOGIC/LYMPHATIC: Denies anemia, denies enlarged lymph node Past Medical History Past Medical History: Eye Disorder, Hyperlipidemia, Hypertension, Osteoarthritis (OA), Vascular Disorder Additional Past Medical History / Comment(s): Sciatica, PVD, GLAUCOMA, has had double vision a few times, no diagnosis. History of Any Multi-Drug Resistant Organisms: None Reported Past Surgical History: Heart Catheterization, Heart Catheterization With Stent Additional Past Surgical History / Comment(s): 3 stents in left leg, angioplasty bilateral legs, aortogram, bilateral cataracts, FEMPOP BYPASS LEFT LEG -FAILED, cysts removed from back and chest. Past Anesthesia/Blood Transfusion Reactions: No Reported Reaction Date of Last Stent Placement:: 2016 Past Psychological History: No Psychological Hx Reported Smoking Status: Former smoker Past Alcohol Use History: Rare Past Drug Use History: None Reported - Past Family History Mother Family Medical History: Diabetes Mellitus Father Family Medical History: Coronary Artery Disease (CAD), Rheumatoid Arthritis (RA) Additional Family Medical History / Comment(s): ARTERIAL SCLEROSIS Medications and Allergies Home Medications Medication Instructions Recorded Confirmed Type Dorzolamide/Timolol/Pf [Cosopt Pf 1 drop BOTH EYES BID 03/18/17 06/14/23 History 2%/0.5% Ophth Droperette] Gabapentin [Neurontin] 300 mg PO TID 11/18/17 06/14/23 History Travoprost [Travatan Z 0.004%] 1 drop BOTH EYES DAILY 12/12/18 06/14/23 History Aspirin EC [Ecotrin Low Dose] 81 mg PO PC-SUPPER #0 11/11/19 06/14/23 Rx Clopidogrel Bisulfate [Plavix] 75 mg PO QAM #0 11/11/19 06/14/23 Rx Simvastatin [Zocor] 40 mg PO HS 12/06/20 06/14/23 History hydroCHLOROthiazide [Hydrodiuril] 12.5 mg PO DAILY 12/06/20 06/14/23 History HYDROcodone/APAP 10-325MG [Colbert 1 tab PO BID PRN 03/14/21 06/14/23 History 10-325] Allergies Allergy/AdvReac Type Severity Reaction Status Date / Time rivaroxaban [From Xarelto] Allergy "internal Verified 06/14/23 19:00 bleeding" Physical Exam Vitals: Vital Signs Temp Pulse Pulse Pulse Resp BP BP 06/17/23 02:00 67 17 110/40 06/17/23 01:00 60 16 115/45 06/17/23 00:00 97.7 F 67 15 113/45 06/16/23 23:00 71 13 123/42 06/16/23 22:00 66 15 118/44 06/16/23 21:00 69 12 122/46 06/16/23 20:00 97.5 F L 71 13 134/43 06/16/23 19:13 66 14 119/43 06/16/23 19:00 70 20 06/16/23 18:45 98.2 F 71 20 06/16/23 18:19 69 16 06/16/23 18:06 91 16 06/16/23 17:51 80 16 06/16/23 17:36 97 F L 99 20 06/16/23 15:15 97.6 F 91 16 168/79 06/16/23 13:13 72 06/16/23 12:00 72 18 160/64 06/16/23 08:00 97.6 F 64 18 131/62 06/16/23 04:00 98.4 F 80 16 147/64 BP Pulse Ox 06/17/23 02:00 99 06/17/23 01:00 99 06/17/23 00:00 98 06/16/23 23:00 99 06/16/23 22:00 99 06/16/23 21:00 99 06/16/23 20:00 98 06/16/23 19:13 93 L 06/16/23 19:00 113/48 92 L 06/16/23 18:45 120/48 92 L 06/16/23 18:19 135/61 100 06/16/23 18:06 207/74 100 06/16/23 17:51 175/112 100 06/16/23 17:36 135/110 99 06/16/23 15:15 97 06/16/23 13:13 06/16/23 12:00 94 L 06/16/23 08:00 94 L 06/16/23 04:00 97 Intake and Output 06/16/23 06/16/23 06/17/23 14:59 22:59 06:59 Intake Total 1850 300 Output Total 400 650 110 Balance -400 1200 190 Intake: IV 1850 300 Sodium Chloride 0.9% 1, 300 300 000 ml @ 75 mls/hr IV . [id number] [facility] Rx#:[id number] Output: Drainage 40 Right Groin 40 Urine 400 460 110 Estimated Blood Loss 150 Other: Voiding Method Indwelling Catheter Indwelling Catheter # Bowel Movements 1 GENERAL EXAM: Alert, 82-year-old white male appearing stated age, comfortable in no apparent distress. HEAD: Normocephalic and atraumatic EYES: Normal reaction of pupils, equal size. NOSE: Clear with pink turbinates. THROAT: No erythema or exudates. NECK: No masses, no JVD. CHEST: No chest wall deformity. LUNGS: Equal air entry with minimal inspiratory bibasilar crackles. No wheeze, rhonchi or dullness. On 2 L/m nasal cannula. No conversational dyspnea or accessory muscle use.. CVS: S1 and S2 normal with no audible murmur, regular rhythm. No extra heart sounds ABDOMEN: Abdomen slightly distended but nontender, and there appears to be a hiatal hernia. No hepatosplenomegaly, active bowel sounds, no guarding or rigidity. SPINE: No scoliosis or deformity SKIN: No rashes CENTRAL NERVOUS SYSTEM: No focal deficits, tone is normal in all 4 extremities. EXTREMITIES: There is a right femoral incision site with dressing clean and dry. Groin is firm without any obvious acute blood loss. There is a JOSE ANGEL drain with minimal amount of serosanguineous output. Bilateral lower extremities have 2+ pitting edema. Peripheral pulses are intact. Results - Laboratory Findings CBC and BMP: 06/16/23 06:26 06/16/23 06:26 Abnormal lab findings: Abnormal Labs 06/14/23 06/14/23 06/14/23 14:03 14:03 14:03 RBC 3.59 L Hgb 10.7 L Hct 32.1 L RDW 17.4 H Lymphocytes # 0.2 L Sodium 131 L Chloride 97 L Carbon Dioxide Glucose 103 H Calcium Total Bilirubin 1.5 H Creatine Kinase 37 L Troponin I 0.041 H* Total Protein Albumin Procalcitonin Urine Protein Urine Ketones Urine Bilirubin Urine Mucus C. difficile (EIA) [facility] 06/14/23 06/14/23 06/14/23 14:03 14:48 20:58 RBC Hgb Hct RDW Lymphocytes # Sodium Chloride Carbon Dioxide Glucose Calcium Total Bilirubin Creatine Kinase Troponin I 0.054 H* Total Protein Albumin Procalcitonin 0.18 H Urine Protein 1+ H Urine Ketones 2+ H Urine Bilirubin 1+ H Urine Mucus Many H C. difficile (EIA) [facility] 06/14/23 06/15/23 06/15/23 23:39 10:21 10:21 RBC 3.59 L Hgb 10.4 L Hct 32.7 L RDW 17.3 H Lymphocytes # 0.2 L Sodium 132 L Chloride Carbon Dioxide Glucose 117 H Calcium 7.6 L Total Bilirubin 1.4 H Creatine Kinase Troponin I 0.066 H* Total Protein 5.4 L Albumin 2.8 L Procalcitonin Urine Protein Urine Ketones Urine Bilirubin Urine Mucus C. difficile (EIA) [facility] 06/15/23 06/16/23 06/16/23 11:13 06:26 06:26 RBC 3.79 L Hgb 11.1 L Hct 35.3 L RDW 17.0 H Lymphocytes # 0.2 L Sodium 133 L Chloride Carbon Dioxide 21 L Glucose Calcium 7.8 L Total Bilirubin 1.7 H Creatine Kinase Troponin I Total Protein 5.3 L Albumin 2.8 L Procalcitonin Urine Protein Urine Ketones Urine Bilirubin Urine Mucus C. difficile (EIA) Intrp Positive A - Diagnostic Findings Chest x-ray: image reviewed Assessment and Plan Assessment: Postoperative day #1 following a right femoral exploration with cut down and control of hemorrhage. Recent history of a right femoral endarterectomy with patch angioplasty and femoral-popliteal bypass on 05/29/2023. This was complicated by postoperative bleeding and right groin hematoma, and the patient did return to the OR the following day for right groin exploration with hematoma evacuation and saphenous vein bypass repair. There was also an open thrombectomy of the right femoral, saphenous vein bypass, and distal popliteal artery. He was discharged home on June 03, and returned to the emergency room on June 14, where he was found to have a 19 x 4.3 x 7.7 cm right anterior lower abdominal/inguinal region hematoma with extravasation within this region thought to be coming from the right common femoral artery. Patient was emergently taken to the operating room yesterday evening. Acute blood loss anemia, secondary to above, stable C. diff colitis, on oral vancomycin, improving Elevated troponins, not likely related to ACS Essential hypertension Hyperlipidemia Peripheral arterial disease Coronary artery disease, with previous coronary stent to the left circumflex GERD History of DVT Plan: Patient's medications, labs, imaging reviewed Monitor for bleeding, hemoglobin appears stable Patient is receiving by mouth vancomycin for C. diff infection, and is clinically improving Receiving fluids with normal saline at 75 mL per hour Patient is oxygenating at 100%, and the patient's minimal supplemental oxygen can be weaned off Patient will be monitored in the intensive care unit likely overnight. I have personally seen and examined the patient, performed the documentation and the assessment and plan as written. Number of minutes spent on the visit:20 Time with Patient: Greater than 30
[2023-06-17 05:33] LABS: African American GFR (CKD) 81 (>60 ml/min/1.73 sqM); Anion Gap 5 mmol/L; Blood Urea Nitrogen 20 mg/dL (9-20); Calcium 7.7 mg/dL (8.4-10.2); Carbon Dioxide 25 mmol/L (22-30); Chloride 102 mmol/L (98-107); Glucose 91 mg/dL (74-99); Non-African American GFR(CKD) 70 (>60 ml/min/1.73 sqM); Potassium 4.1 mmol/L (3.5-5.1); Sodium 132 mmol/L (137-145)
[2023-06-17 06:32] LABS: Anisocytosis Slight; Basophils % (A) 1 %; Eosinophils # (A) 0.1 k/uL (0-0.7); Eosinophils % (A) 2 %; HGB 9.9 gm/dL (13.0-17.5); Hypochromasia Moderate; Lymphocytes # (A) 0.4 k/uL (1.0-4.8); Lymphocytes % (A) 6 %; MCH 30.3 pg (25.0-35.0); MCV 89.1 fL (80.0-100.0); Mean Platelet Volume 10.2; Monocytes # (A) 0.4 k/uL (0-1.0); Monocytes % (A) 7 %; Neutrophils # (A) 4.5 k/uL (1.3-7.7); Neutrophils % (A) 80 %; Platelet Count 205 k/uL (150-450); Poikilocytosis Slight; RBC 3.25 m/uL (4.30-5.90); RDW 17.3 % (11.5-15.5); WBC 5.6 k/uL (3.8-10.6)
[2023-06-17] MEDS: PANTOPRAZOLE 40 MG TABLET PO SCH (06:50)
[2023-06-17] MEDS: SODIUM CHLORIDE 0.9% 1,000 ML IV SCH (09:33)
[2023-06-17] MEDS: VANCOMYCIN 125 MG CAPSULE PO SCH ×4 (09:48→21:10)
[2023-06-17] MEDS: LATANOPROST 0.005% OPHTH DROPS 2.5 ML BTL BOTH EYES SCH (09:49)
[2023-06-17] MEDS: GABAPENTIN 300 MG CAP PO SCH ×3 (09:52→21:09)
[2023-06-17] MEDS: METOPROLOL TARTRATE 12.5 MG TAB PO SCH ×2 (09:52→21:09)
[2023-06-17] MEDS: CHOLESTYRAMINE (WITH SUGAR) 4 GM PACKET PO SCH ×2 (09:52→17:14)
[2023-06-17] MEDS: hydroCHLOROthiazide 12.5 MG CAP PO SCH (09:52)
[2023-06-17] MEDS: DORZOLAMIDE-TIMOLOL 2.23%/0.68 10ML BTL BOTH EYES SCH ×2 (09:55→21:10)
--- NOTE | 2023-06-17 10:25 | P.PN ---
Subjective Progress Note Date: 06/17/23 Saravanan Sharma, is an 82-year-old male patient who presented with concerns of increased weakness. Patient was recently admitted and discharged following a right femoral below-knee bypass. During that stay patient also developed a right groin hematoma and required ICU care. This issue did resolve the patient was DC'd home. Patient apparently has had increased weakness at home with poor appetite and abdominal discomfort. Patient has past medical history of heart cath with stents, hyperlipidemia, hypertension, vascular disease, glaucoma and ex-smoker. EKG completed showing sinus rhythm with first-degree AV block. Chest x-ray completed showing no evidence for acute pulmonary disease. KUB x-r ay completed showing overall nonobstructive bowel gas pattern. Troponins positive at 0.041, 0.054 and 0.066. Patient's sodium 131. Pro calcitonin 0.18. Patient's vitals upon arrival a weighted temp at 102.8, heart rate 79, respiratory rate 18, blood pressure 165/64 with a pulse ox 98%. At this time patient was admitted. Patient given dose of Rocephin. Cardiology, vascular and infectious disease service is consulted. Blood culture ordered. Stool for C. diff ordered. Upon exam patient's abdomen slightly distended and tender. Will order ultrasound of abdomen. Patient denies chest pain or cough. Patient denies any urinary burning or frequency. On 06/16/2023 patient was seen and examined on the medical floor he is alert and oriented 3 in no apparent distress, there is no fever or chills no headache or dizziness no chest pain no shortness of breath no cough no nausea or vomiting no abdominal pain, patient is still having some diarrhea he has no urinary symptoms, he was evaluated by Dr. Varner, and will be taken emergently to the operating room, due to right groin hematoma and active bleeding. On 06/17/2023 patient is alert and oriented 3 currently resting comfortably in the intensive care unit. Status post right femoral cutdown redo groin right femoral exploration and control of hemorrhage. Hemoglobin stable at 9.9. Patient remains on oral vancomycin for C. diff. Nursing staff bowel movements have significantly improved. Critical care, vascular, cardiology and infectious disease services are following. Current vital signs 100.4, heart rate 73, respiratory rate 20, blood pressure 123/41 with a pulse ox 93% on room air Objective - Vital Signs Vital signs: Vital Signs Temp 100.4 F H 06/17/23 08:00 Pulse 65 06/17/23 09:00 Resp 17 06/17/23 09:00 BP 112/44 06/17/23 09:00 Pulse Ox 92 L 06/17/23 09:00 FiO2 Intake & Output 06/16/23 06/17/23 06/17/23 18:59 06:59 18:59 Intake Total 1550 900 915 Output Total 850 455 85 Balance 700 445 830 Weight 79.4 kg Intake: IV 1550 900 225 Sodium Chloride 0.9% 1, 900 225 000 ml @ 75 mls/hr IV . [id number] [facility] Rx#:[id number] Oral 450 Tube Feeding 240 Output: Drainage 40 Right Groin 40 Urine 700 415 85 Estimated Blood Loss 150 Other: Voiding Method Indwelling Catheter # Bowel Movements 1 - Exam In general patient is alert and oriented x 3 in no distress HEENT head normocephalic and atraumatic Neck is supple no JVD no goiter no lymphadenopathy no carotid bruit Chest examination is clear to auscultation no crackles no wheezing Cardiac exam reveals regular heart sounds S1 and S2 no gallops no murmurs Abdomen is soft nontender no organomegaly with normal bowel sounds Extremity exam reveals no edema no cyanosis or clubbing Neurological examination reveals no gross focal deficits - Labs CBC & Chem 7: 06/17/23 04:29 06/17/23 04:29 Labs: Abnormal Lab Results - Last 24 Hours (Table) 06/17/23 06/17/23 Range/Units 04:29 04:29 RBC 3.25 L (4.30-5.90) m/uL Hgb 9.9 L (13.0-17.5) gm/dL Hct 29.0 L (39.0-53.0) % RDW 17.3 H (11.5-15.5) % Lymphocytes # 0.4 L (1.0-4.8) k/uL Sodium 132 L (137-145) mmol/L Calcium 7.7 L (8.4-10.2) mg/dL Microbiology - Last 24 Hours (Table) 06/15/23 18:21 Blood Culture - Preliminary Blood 06/15/23 09:54 Urine Culture - Final Urine,Catheterized 08/13/23 21:04 Blood Culture - Preliminary Blood Assessment and Plan Assessment: 1. Right groin hematoma s/p right femoral exploration with cutdown and control of hemorrhage on 06/16/2023. Patient has recent history of right femoral endarterectomy with patch angioplasty more optimal bypass on 05/29/2023 patient did require hematoma evacuation at that time following initial procedure. Patient was discharged home on 06/03/2023 2. Stool positive for C. diff currently on oral vancomycin 3. Elevated troponins cardiology service is consulted 2-D echo ordered 4. Acute blood loss anemia secondary to hematoma 5. History of essential hypertension 6. History of hyperlipidemia 7. History of COPD 8. History of spinal stenosis with chronic back pain 9. Hyponatremia patient was given IV fluid repeat labs ordered DVT prophylaxis heparin. GI prophylaxis Protonix Cardiology consulted for elevated troponins 2-D echo ordered Infectious disease service is consulted Vascular surgery consulted Status post emergent hematoma evacuation and right groin exploration on 06/16/2023 Repeat labs ordered PT OT service is consulted
--- NOTE | 2023-06-17 11:22 | P.PN ---
Subjective Progress Note Date: 06/17/23 Principal diagnosis: Weakness Patient was seen and examined today as a follow-up. Yesterday he underwent right groin exploratory surgery with control of hemorrhage. Today he is resting comfortably. He is sitting up in bed and ate breakfast. States abdominal pain improved. Has no pain in his lower extremities. Hemoglobin stable at 9.9. Patient with low grade temp of 100.4 this morning. States diarrhea has improved he hasn't had any since yesterday. He remains on vancomycin. Objective - Vital Signs Vital signs: Vital Signs Temp 100.4 F H 06/17/23 08:00 Pulse 73 06/17/23 08:00 Resp 20 06/17/23 08:00 BP 123/41 06/17/23 08:00 Pulse Ox 93 L 06/17/23 08:00 FiO2 Intake & Output 06/16/23 06/17/23 06/17/23 18:59 06:59 18:59 Intake Total 1550 900 840 Output Total 850 455 60 Balance 700 445 780 Weight 79.4 kg Intake: IV 1550 900 150 Sodium Chloride 0.9% 1, 900 150 000 ml @ 75 mls/hr IV . [id number] Rx#:[id number] Oral 450 Tube Feeding 240 Output: Drainage 40 Right Groin 40 Urine 700 415 60 Estimated Blood Loss 150 Other: Voiding Method Indwelling Catheter # Bowel Movements 1 - Exam General appearance: The patient is alert, oriented, appears in no acute distress. HET: Head is normocephalic and atraumatic. Pupils are equal and reactive. Neck: Supple. Heart: Regular. Lungs: Equal expansion, normal respiratory effort. Abdomen: Soft, right lower abdomen tender, firm. Extremities: Right groin with dressing in place clean dry and intact. Hematoma marked by nursing. There is still firmness of right lower abdomen, pelvis is softer. JOSE ANGEL drain in place with serosanguineous drainage. Right lower extremity warm to the touch with palpable graft compatible DP pulse, lower extremity edema. Neurological: No focal deficits. Strength and sensation are grossly intact. - Labs CBC & Chem 7: 06/17/23 04:29 06/17/23 04:29 Labs: Abnormal Lab Results - Last 24 Hours (Table) 06/17/23 06/17/23 Range/Units 04:29 04:29 RBC 3.25 L (4.30-5.90) m/uL Hgb 9.9 L (13.0-17.5) gm/dL Hct 29.0 L (39.0-53.0) % RDW 17.3 H (11.5-15.5) % Lymphocytes # 0.4 L (1.0-4.8) k/uL Sodium 132 L (137-145) mmol/L Calcium 7.7 L (8.4-10.2) mg/dL Microbiology - Last 24 Hours (Table) 06/15/23 18:21 Blood Culture - Preliminary Blood 06/15/23 09:54 Urine Culture - Final Urine,Catheterized 06/14/23 21:04 Blood Culture - Preliminary Blood Assessment and Plan Assessment: 1. Right groin hematoma, active bleeding status post right femoral exploration control of hemorrhage 2. Previous right lower extremity femoral to popliteal artery bypass with in situ vein 3. Weakness 4. Abdominal pain with nausea and diarrhea 5. Positive C. difficile 6. Elevated troponins 7. History of peripheral arterial disease Plan: 1. Keep right groin clean, apply dressing daily, change as needed 2. CBC this afternoon, then daily 3. Continue to hold heparin, Plavix and aspirin 4. Bedrest for today 5. Okay for consistent carbohydrate diet 6. If hemoglobin stable this afternoon patient may be transferred to 3 S. cardiac stepdown unit 7. Incentive spirometer to bedside 8. Recommend subacute rehab on discharge 9. Further recommendations forthcoming from vascular surgeon Thank you for this consultation, we will continue to follow. The impression and plan of care has been dictated as directed. Dr. Varner I performed a history and examination of this patient, discussed the same with the dictator. I agree with the dictator's note ,documented as a scribe. Any additional findings or plans will be noted.
[2023-06-17 11:35] LABS: Anisocytosis Slight; HCT 27.2 % (39.0-53.0); HGB 8.8 gm/dL (13.0-17.5); Hypochromasia Moderate; MCHC 32.2 g/dL (31.0-37.0); MCV 90.2 fL (80.0-100.0); Mean Platelet Volume 9.1; Platelet Count 233 k/uL (150-450); Poikilocytosis Slight; RBC 3.02 m/uL (4.30-5.90)
[2023-06-17 12:10] LABS: Appearance,Urine Clear (Clear); Bilirubin,Urine Negative (Negative); Blood,Urine Negative (Negative); Cellular Casts,Urine 13 /lpf (0); Color,Urine Yellow; Glucose,Urine (UA) Negative (Negative); Ketones,Urine 1+ (Negative); Leukocyte Esterase,Urine Negative (Negative); Mucus,Urine Few /hpf; Nitrite,Urine Negative (Negative); PH, Urine 5.5 (5.0-8.0); Protein,Urine 1+ (Negative); RBC,Urine 1 /hpf (0-5); Squamous Epithelial Cell,Urine <1 /hpf (0-4); Urobilinogen,Urine <2.0 mg/dL (<2.0); WBC,Urine 1 /hpf (0-5)
--- NOTE | 2023-06-17 14:00 | P.PN ---
Subjective Progress Note Date: 06/17/23 Principal diagnosis: CAD/PAD The patient is an 82-year-old gentleman with coronary artery disease and lower extremities PAD as well as hypertension and dyslipidemia who underwent recently right femoral endarterectomy followed by right groin exploration and hematoma evacuation was opened thrombectomy as well as. The patient was admitted to the hospital with abdominal discomfort and the right groin discomfort and he underwent yesterday also right groin evacuation of hematoma was performed by Dr. Varner. We consulted initially to see the patient for mildly elevated troponin which we decided to treat medically in the absence of any chest pain or chest discomfort. June 17 The patient was seen this morning. He is a stable. He is not on any vasopressors. He has been maintaining normal sinus mechanism. Hemoglobin is a stable above 8. From a cardiovascular standpoint of view, I would continue the current medical regimen. The patient can be transferred out of the intensive care unit. Assessment Status post right groin evacuation of hematoma Status post right femoral endarterectomy Coronary artery disease with prior angioplasty Multiple comorbid conditions Anemia secondary to bleeding Plan Continue the current medical regimen Continue monitor the hemoglobin and kidney function The patient can be transferred out of the ICU Objective - Vital Signs Vital signs: Vital Signs Temp 98 F 06/17/23 12:00 Pulse 63 06/17/23 13:00 Resp 26 H 06/17/23 13:00 BP 123/45 06/17/23 13:00 Pulse Ox 98 06/17/23 13:00 FiO2 Intake & Output 06/16/23 06/17/23 06/17/23 18:59 06:59 18:59 Intake Total 1309 798 9483 Output Total 850 455 265 Balance 385 921 5689 Weight 79.4 kg Intake: IV 1550 900 525 Sodium Chloride 0.9% 1, 900 525 000 ml @ 75 mls/hr IV . [id number] Rx#:[id number] Oral 900 Tube Feeding 240 Output: Drainage 40 50 Right Groin 40 50 Urine 700 415 215 Estimated Blood Loss 150 Other: Voiding Method Indwelling Catheter Indwelling Catheter # Bowel Movements 1 - Labs CBC & Chem 7: 06/17/23 11:15 06/17/23 04:29 Labs: Abnormal Lab Results - Last 24 Hours (Table) 06/16/23 06/16/23 06/17/23 Range/Units 15:18 16:56 04:29 RBC 3.25 L (4.30-5.90) m/uL Hgb 9.9 L (13.0-17.5) gm/dL Hct 29.0 L (39.0-53.0) % RDW 17.3 H (11.5-15.5) % Lymphocytes # 0.4 L (1.0-4.8) k/uL Sodium (137-145) mmol/L Calcium (8.4-10.2) mg/dL Ur Specific [place] 1.050 H (1.001-1.035) Urine Protein 1+ H (Negative) Urine Ketones 1+ H (Negative) Urine Mucus Few H (None) /hpf Crossmatch See Detail 06/17/23 06/17/23 Range/Units 04:29 11:15 RBC 3.02 L (4.30-5.90) m/uL Hgb 8.8 L (13.0-17.5) gm/dL Hct 27.2 L (39.0-53.0) % RDW 17.0 H (11.5-15.5) % Lymphocytes # (1.0-4.8) k/uL Sodium 132 L (137-145) mmol/L Calcium 7.7 L (8.4-10.2) mg/dL Ur Specific [place] (1.001-1.035) Urine Protein (Negative) Urine Ketones (Negative) Urine Mucus (None) /hpf Crossmatch Microbiology - Last 24 Hours (Table) 06/14/23 21:04 Blood Culture - Preliminary Blood 06/15/23 18:21 Blood Culture - Preliminary Blood 06/15/23 09:54 Urine Culture - Final Urine,Catheterized
[2023-06-17] MEDS ORDERED: HYDROmorphone 0.5 MG/0.5 ML SYRINGE IVP PRN (19:09)
[2023-06-17] MEDS ORDERED: MAG HYDROX/AL HYDROX/SIMETH 30 ML CUP PO PRN (19:10)
[2023-06-17 19:27] LABS: Anisocytosis Slight; HCT 33.7 % (39.0-53.0); HGB 10.9 gm/dL (13.0-17.5); Hypochromasia Marked; MCH 29.7 pg (25.0-35.0); MCHC 32.3 g/dL (31.0-37.0); MCV 91.8 fL (80.0-100.0); Platelet Count 205 k/uL (150-450); Poikilocytosis Slight; RBC 3.67 m/uL (4.30-5.90); RDW 16.8 % (11.5-15.5)
[2023-06-17] MEDS: HYDROmorphone 1 MG/ML 1 ML SYRINGE IVP PRN (19:27)
[2023-06-17] MEDS: ATORVASTATIN 40 MG TAB PO SCH (21:09)
[2023-06-18 06:09] LABS: Anisocytosis Slight; HGB 9.7 gm/dL (13.0-17.5); Hypochromasia Moderate; MCH 28.8 pg (25.0-35.0); MCHC 31.4 g/dL (31.0-37.0); MCV 91.5 fL (80.0-100.0); Mean Platelet Volume 9.2; Platelet Count 214 k/uL (150-450); Poikilocytosis Slight; RBC 3.38 m/uL (4.30-5.90); RDW 16.9 % (11.5-15.5); WBC 6.8 k/uL (3.8-10.6)
[2023-06-18 06:32] LABS: African American GFR (CKD) >90 (>60 ml/min/1.73 sqM); Anion Gap 4 mmol/L; Blood Urea Nitrogen 17 mg/dL (9-20); Calcium 7.3 mg/dL (8.4-10.2); Carbon Dioxide 24 mmol/L (22-30); Chloride 105 mmol/L (98-107); Glucose 104 mg/dL (74-99); Non-African American GFR(CKD) 79 (>60 ml/min/1.73 sqM); Potassium 3.2 mmol/L (3.5-5.1); Sodium 133 mmol/L (137-145)
[2023-06-18] MEDS: PANTOPRAZOLE 40 MG TABLET PO SCH (06:49)
[2023-06-18] MEDS ORDERED: Potassium Replacement Protocol 1 EACH MISC MISCELLANE PRN (07:32)
[2023-06-18] MEDS ORDERED: FUROSEMIDE 10 MG/ML 2 ML VIAL IV ONE (08:21)
--- NOTE | 2023-06-18 08:23 | P.PN ---
Subjective Progress Note Date: 06/18/23 Principal diagnosis: CAD/PAD The patient is an 82-year-old gentleman with coronary artery disease and lower extremities PAD as well as hypertension and dyslipidemia who underwent recently right femoral endarterectomy followed by right groin exploration and hematoma evacuation was opened thrombectomy as well as. The patient was admitted to the hospital with abdominal discomfort and the right groin discomfort and he underwent yesterday also right groin evacuation of hematoma was performed by Dr. Varner. We consulted initially to see the patient for mildly elevated troponin which we decided to treat medically in the absence of any chest pain or chest discomfort. June 17 The patient was seen this morning. He is a stable. He is not on any vasopressors. He has been maintaining normal sinus mechanism. Hemoglobin is a stable above 8. From a cardiovascular standpoint of view, I would continue the current medical regimen. The patient can be transferred out of the intensive care unit. June [id number] The patient was seen and evaluated this morning. He is short of breath experiencing expiratory wheezing as well. He also have bilateral lower extremity edema. The patient is in somewhat fluid overloaded. I am going to obtain a chest x-ray and also anti-proBNP and give the patient 20 mg of Lasix IV. For some reason he is not on any anti-platelet at this point. Than that to be addressed by the vascular team. The examination is remarkable for bilateral lower extremity edema and bilateral expiratory wheezing. Assessment Status post right groin evacuation of hematoma Status post right femoral endarterectomy Coronary artery disease with prior angioplasty Multiple comorbid conditions Anemia secondary to bleeding Bilateral lower extremities edema Plan Continue the current medical regimen Continue monitor the hemoglobin and kidney function Chest x-ray and and the proBNP Give the patient Lasix IV Follow-up with the patient Objective - Vital Signs Vital signs: Vital Signs Temp 98.3 F 06/18/23 04:00 Pulse 63 06/18/23 07:00 Resp 16 06/18/23 07:00 BP 127/47 06/18/23 07:00 Pulse Ox 97 06/18/23 07:00 FiO2 Intake & Output 06/17/23 06/18/23 06/18/23 18:59 06:59 18:59 Intake Total 2470 900 75 Output Total 473 358 30 Balance 1996 542 45 Weight 83.5 kg Intake: IV 900 900 75 Sodium Chloride 0.9% 1, 900 900 75 000 ml @ 75 mls/hr IV . [id number] [facility] Rx#:[id number] Oral 1020 Tube Feeding 240 Blood Product 310 Rc As-1 Unit 310 [id number] Output: Drainage 100 30 Right Groin 100 30 Urine 373 328 30 Other: Voiding Method Indwelling Catheter Indwelling Catheter - Labs CBC & Chem 7: 06/18/23 05:35 06/18/23 05:35 Labs: Abnormal Lab Results - Last 24 Hours (Table) 06/16/23 06/16/23 06/17/23 Range/Units 15:18 16:56 11:15 RBC 3.02 L (4.30-5.90) m/uL Hgb 8.8 L (13.0-17.5) gm/dL Hct 27.2 L (39.0-53.0) % RDW 17.0 H (11.5-15.5) % Sodium (137-145) mmol/L Potassium (3.5-5.1) mmol/L Glucose (74-99) mg/dL Calcium (8.4-10.2) mg/dL Ur Specific [place] 1.050 H (1.001-1.035) Urine Protein 1+ H (Negative) Urine Ketones 1+ H (Negative) Urine Mucus Few H (None) /hpf Crossmatch See Detail 06/17/23 06/18/23 06/18/23 Range/Units 18:08 05:35 05:35 RBC 3.67 L 3.38 L (4.30-5.90) m/uL Hgb 10.9 L 9.7 L (13.0-17.5) gm/dL Hct 33.7 L 31.0 L (39.0-53.0) % RDW 16.8 H 16.9 H (11.5-15.5) % Sodium 133 L (137-145) mmol/L Potassium 3.2 L (3.5-5.1) mmol/L Glucose 104 H (74-99) mg/dL Calcium 7.3 L (8.4-10.2) mg/dL Ur Specific [place] (1.001-1.035) Urine Protein (Negative) Urine Ketones (Negative) Urine Mucus (None) /hpf Crossmatch Microbiology - Last 24 Hours (Table) 06/15/23 18:21 Blood Culture - Preliminary Blood 06/14/23 21:04 Blood Culture - Preliminary Blood
[2023-06-18] MEDS: VANCOMYCIN 125 MG CAPSULE PO SCH ×4 (08:50→21:01)
[2023-06-18] MEDS: METOPROLOL TARTRATE 12.5 MG TAB PO SCH ×2 (08:50→20:55)
[2023-06-18] MEDS: POTASSIUM CHLORIDE ER 20 MEQ TAB.ER PO SCH ×2 (08:50→12:13)
[2023-06-18] MEDS: GABAPENTIN 300 MG CAP PO SCH ×3 (08:50→21:01)
[2023-06-18] MEDS: CHOLESTYRAMINE (WITH SUGAR) 4 GM PACKET PO SCH ×2 (08:51→17:41)
[2023-06-18] MEDS: hydroCHLOROthiazide 12.5 MG CAP PO SCH (08:51)
[2023-06-18] MEDS: SODIUM CHLORIDE 0.9% 1,000 ML IV SCH ×2 (08:51→08:52)
--- NOTE | 2023-06-18 08:53 | XR ---
EXAMINATION TYPE: XR chest 1V portable DATE OF EXAM: 06/18/2023 8:48 AM COMPARISON: Chest radiographs from 06/14/2023 TECHNIQUE: XR chest 1V portable Portable AP radiograph of the chest. CLINICAL INDICATION:Male, 82 years old with history of wheezing, concern for CHF; FINDINGS: Lungs/Pleura: Right basilar patchy airspace opacity. No pleural effusion or pneumothorax. Pulmonary vascularity: Unremarkable. Heart/mediastinum: Cardiomediastinal silhouette is enlarged and stable. Musculoskeletal: No acute osseous pathology. Degenerative changes of the thoracic spine. IMPRESSION: 1. Right basilar patchy airspace opacity which may represent atelectasis versus infiltrate. 2. Cardiomegaly without overt pulmonary vascular congestion.
[2023-06-18] MEDS: DORZOLAMIDE-TIMOLOL 2.23%/0.68 10ML BTL BOTH EYES SCH ×2 (09:01→20:54)
[2023-06-18] MEDS: LATANOPROST 0.005% OPHTH DROPS 2.5 ML BTL BOTH EYES SCH (09:02)
--- NOTE | 2023-06-18 11:07 | P.PN ---
Subjective Progress Note Date: 06/18/23 I am seeing this patient in new consultation today 06/17/2023 in the intensive care unit, patient is currently postoperative day #1 following a right femoral exploration with cut down and control of hemorrhage. Patient is a 82-year-old white male with past medical history significant for hyperlipidemia, h ypertension, coronary artery disease with prior coronary stents, and peripheral arterial disease with recent right femoral endarterectomy with patch angioplasty and femoral-popliteal bypass on 05/29/2023. This was complicated with postoperative bleeding and right groin hematoma, and the patient did return to the OR the following day for right groin exploration with hematoma evacuation and saphenous vein bypass repair. There was open thrombectomy of the right femoral, saphenous vein bypass, and distal popliteal artery. He was discharged home on June 03. The patient did return to the emergency room on mostly complaining of nausea, vomiting, and diarrhea. The patient was found to be positive for C. diff, and placed on oral vancomycin. An abdomen and pelvis CT angiogram showed a 19 x 4.3 x 7.7 cm right anterior lower abdominal/inguinal region hematoma. There appeared to be extravasation within this region thought to be coming from the right common femoral artery. The patient was emergently taken to the operating room, and is postoperative day #1 following a right femor al exploration with cut down and control of hemorrhage. Documented EBL was only 150 ML's. Patient is currently lying in bed, supine, in no acute distress. He is on 2 L/m nasal cannula oxygenating at 100%, and this probably can be weaned off. Patient's right groin has an incisional dressing that is clean, dry. Right groin is firm without any obvious acute bleeding noted. There is a JOSE ANGEL drain with a small amount of serosanguineous output. Bilateral lower extremity neurovascular status appears intact. Patient's nausea, vomiting, diarrhea has reportedly improved since his admission to the hospital and initiation of oral Vanco. Most recent CBC shows WBC count of 5.1, hemoglobin stable at 11.1, hematocrit 35.3, and platelets 230. Most recent BMP from yesterday shows a sodium 133, potassium 4.1, chloride 103, serum bicarbonate 21, BUN 17, creatinine 0.89, glucose 97. Troponins were mildly elevated at 0.041, 54, and 0.066 respectively. Patient denies any chest pain. No obvious acute ischemic changes seen on ECG. Normal saline is infusing at 75 mL per hour. Urine output is adequate, urine looks concentrated. Patient is hemodynamically stable at this point, and will be monitored in the intensive care unit overnight. The patient is seen today 06/18/2023 in follow-up in the intensive care unit. He is currently sitting up in bed. Awake and alert in no acute distress. He is maintaining O2 saturations in the 90s on 2 L/m per nasal cannula. He is a bit short of breath with wheezing this morning. He is given Lasix 40 mg IVP 1. Normal saline will be decreased to KVO. His x-ray shows right basilar patchy airspace opacity suspect atelectasis versus infiltrate. There is cardiomegaly but no overt pulmonary vascular congestion. Blood cultures reveal no growth. Urine culture reveals no growth. White count 6.8. Hemoglobin 9.7. Platelets 214. Sodium 133. Potassium 3.2. Bicarb 24. BUN 17. Creatinine 0.89. Glucose 104. Right groin site is stable. Remains on oral vancomycin for his C. difficile infection. Objective - Vital Signs Vital signs: Vital Signs Temp 97.7 F 06/18/23 08:00 Pulse 65 06/18/23 08:00 Resp 17 06/18/23 08:00 BP 124/51 06/18/23 08:00 Pulse Ox 97 06/18/23 08:00 FiO2 Intake & Output 06/17/23 06/18/23 06/18/23 18:59 06:59 18:59 Intake Total 2470 900 75 Output Total 473 358 30 Balance 1996 542 45 Weight 83.5 kg Intake: IV 900 900 75 Sodium Chloride 0.9% 1, 900 900 75 000 ml @ 75 mls/hr IV . [id number] [facility] Rx#:[id number] Oral 1020 Tube Feeding 240 Blood Product 310 Rc As-1 Unit 310 [id number] Output: Drainage 100 30 Right Groin 100 30 Urine 373 328 30 Other: Voiding Method Indwelling Catheter Indwelling Catheter Indwelling Catheter - Exam GENERAL EXAM: Alert, 82-year-old male, on 2 L nasal cannula, comfortable in no apparent distress. HEAD: Normocephalic and atraumatic EYES: Normal reaction of pupils, equal size. NOSE: Clear with pink turbinates. THROAT: No erythema or exudates. NECK: No masses, no JVD. CHEST: No chest wall deformity. LUNGS: Equal air entry with minimal inspiratory bibasilar crackles, mild expiratory wheeze. CVS: S1 and S2 normal with no audible murmur, regular rhythm. No extra heart sounds ABDOMEN: Abdomen slightly distended but nontender, and there appears to be a hiatal hernia. No hepatosplenomegaly, active bowel sounds, no guarding or rigidity. SPINE: No scoliosis or deformity SKIN: No rashes CENTRAL NERVOUS SYSTEM: No focal deficits, tone is normal in all 4 extremities. EXTREMITIES: There is a right femoral incision site with dressing clean and dry. Groin is firm without any obvious acute blood loss. There is a JOSE ANGEL drain with minimal amount of serosanguineous output. Bilateral lower extremities have 2+ pitting edema. Peripheral pulses are intact. - Labs CBC & Chem 7: 06/18/23 05:35 06/18/23 05:35 Labs: Abnormal Lab Results - Last 24 Hours (Table) 06/16/23 06/16/23 06/17/23 Range/Units 15:18 16:56 11:15 RBC 3.02 L (4.30-5.90) m/uL Hgb 8.8 L (13.0-17.5) gm/dL Hct 27.2 L (39.0-53.0) % RDW 17.0 H (11.5-15.5) % Sodium (137-145) mmol/L Potassium (3.5-5.1) mmol/L Glucose (74-99) mg/dL Calcium (8.4-10.2) mg/dL Ur Specific [place] 1.050 H (1.001-1.035) Urine Protein 1+ H (Negative) Urine Ketones 1+ H (Negative) Urine Mucus Few H (None) /hpf Crossmatch See Detail 06/17/23 06/18/23 06/18/23 Range/Units 18:08 05:35 05:35 RBC 3.67 L 3.38 L (4.30-5.90) m/uL Hgb 10.9 L 9.7 L (13.0-17.5) gm/dL Hct 33.7 L 31.0 L (39.0-53.0) % RDW 16.8 H 16.9 H (11.5-15.5) % Sodium 133 L (137-145) mmol/L Potassium 3.2 L (3.5-5.1) mmol/L Glucose 104 H (74-99) mg/dL Calcium 7.3 L (8.4-10.2) mg/dL Ur Specific [place] (1.001-1.035) Urine Protein (Negative) Urine Ketones (Negative) Urine Mucus (None) /hpf Crossmatch Microbiology - Last 24 Hours (Table) 06/15/23 18:21 Blood Culture - Preliminary Blood 06/14/23 21:04 Blood Culture - Preliminary Blood Assessment and Plan Assessment: Postoperative day #2 following a right femoral exploration with cut down and control of hemorrhage. Recent history of a right femoral endarterectomy with patch angioplasty and femoral-popliteal bypass on 05/29/2023. This was complicated by postoperative bleeding and right groin hematoma, and the patient did return to the OR the following day for right groin exploration with hematoma evacuation and saphenous vein bypass repair. There was also an open thrombectomy of the right femoral, saphenous vein bypass, and distal popliteal artery. He was discharged home on June 03, and returned to the emergency room on June 14, where he was found to have a 19 x 4.3 x 7.7 cm right anterior lower abdominal/inguinal region hematoma with extravasation within this region thought to be coming from the right common femoral artery. Patient was emergently taken to the operating room 06/16/2020. Acute blood loss anemia, secondary to above, stable C. diff colitis, on oral vancomycin, improving Elevated troponins, not likely related to ACS Essential hypertension Hyperlipidemia Peripheral arterial disease Coronary artery disease, with previous coronary stent to the left circumflex GERD History of DVT Plan: The patient was seen and evaluated Chest x-ray, labs and medications reviewed Received Lasix 40 mg IVP 1 IV to KVO Could be transferred to the selective care unit today We will continue to follow I have personally seen and examined the patient, performed the documentation and the assessment and plan as written. Number of minutes spent on the visit: 10.
[2023-06-18] MEDS: ASPIRIN 81 MG PO SCH (12:13)
[2023-06-18] MEDS: HYDROcodone/APAP 10-325MG 1 EACH TAB PO PRN (12:14)
--- NOTE | 2023-06-18 12:39 | P.PN ---
Subjective Progress Note Date: 06/18/23 Patient was seen and examined today in the ICU as a follow-up. Patient actually has been downgraded to 3 S. Patient is without any complaints at this time. No abdominal pain chest pain but states he was a little short of breath earlier. Hemoglobin stable at 9.7. He is afebrile. No bleeding at surgical site. JOSE ANGEL drain with serosanguineous drainage 50 mils output yesterday. Objective - Vital Signs Vital signs: Vital Signs Temp 97.7 F 06/18/23 08:00 Pulse 65 06/18/23 08:00 Resp 17 06/18/23 08:00 BP 124/51 06/18/23 08:00 Pulse Ox 97 06/18/23 08:00 FiO2 Intake & Output 06/17/23 06/18/23 06/18/23 18:59 06:59 18:59 Intake Total 2470 900 75 Output Total 473 358 30 Balance 1996 542 45 Weight 83.5 kg Intake: IV 900 900 75 Sodium Chloride 0.9% 1, 900 900 75 000 ml @ 75 mls/hr IV . [id number] [facility] Rx#:[id number] Oral 1020 Tube Feeding 240 Blood Product 310 Rc As-1 Unit 310 [id number] Output: Drainage 100 30 Right Groin 100 30 Urine 373 328 30 Other: Voiding Method Indwelling Catheter Indwelling Catheter Indwelling Catheter - Exam General appearance: The patient is alert, oriented, appears in no acute distress. HET: Head is normocephalic and atraumatic. Pupils are equal and reactive. Neck: Supple. Heart: Regular. Lungs: Equal expansion, normal respiratory effort. No wheezes. Abdomen: Soft, right lower abdomen nontender, hematoma improving. Extremities: Right groin with dressing in place clean dry and intact. Hematoma marked by nursing, improving. There is still firmness of right lower abdomen which is improving, pelvis is softer. JOSE ANGEL drain in place with serosanguineous drainage. Right lower extremity warm to the touch with palpable graft compatible DP pulse, lower extremity edema. Neurological: No focal deficits. Strength and sensation are grossly intact. - Labs CBC & Chem 7: 06/18/23 05:35 06/18/23 05:35 Labs: Abnormal Lab Results - Last 24 Hours (Table) 06/16/23 06/17/23 06/18/23 Range/Units 15:18 18:08 05:35 RBC 3.67 L 3.38 L (4.30-5.90) m/uL Hgb 10.9 L 9.7 L (13.0-17.5) gm/dL Hct 33.7 L 31.0 L (39.0-53.0) % RDW 16.8 H 16.9 H (11.5-15.5) % Sodium (137-145) mmol/L Potassium (3.5-5.1) mmol/L Glucose (74-99) mg/dL Calcium (8.4-10.2) mg/dL Crossmatch See Detail 06/18/23 Range/Units 05:35 RBC (4.30-5.90) m/uL Hgb (13.0-17.5) gm/dL Hct (39.0-53.0) % RDW (11.5-15.5) % Sodium 133 L (137-145) mmol/L Potassium 3.2 L (3.5-5.1) mmol/L Glucose 104 H (74-99) mg/dL Calcium 7.3 L (8.4-10.2) mg/dL Crossmatch Microbiology - Last 24 Hours (Table) 06/15/23 18:21 Blood Culture - Preliminary Blood 06/14/23 21:04 Blood Culture - Preliminary Blood Assessment and Plan Assessment: 1. Right groin hematoma, active bleeding status post right femoral exploration control of hemorrhage 2. Previous right lower extremity femoral to popliteal artery bypass with in situ vein 3. Weakness 4. Abdominal pain with nausea and diarrhea 5. Positive C. difficile 6. Elevated troponins 7. History of peripheral arterial disease Plan: 1. Keep right groin clean, apply dressing daily, change as needed 2. CBC daily 3. Continue to hold and Plavix. May resume aspirin 81 mg daily 4. May increase activity to bedside chair 5. Okay for consistent carbohydrate diet 6. Incentive spirometer to bedside 7. Recommend subacute rehab on discharge 8. Further recommendations forthcoming from vascular surgeon Thank you for this consultation, we will continue to follow. The impression and plan of care has been dictated as directed. Dr. Varner I performed a history and examination of this patient, discussed the same with the dictator. I agree with the dictator's note ,documented as a scribe. Any additional findings or plans will be noted.
--- NOTE | 2023-06-18 17:20 | P.PN ---
Subjective Progress Note Date: 06/18/23 Saravanan Sharma, is an 82-year-old male patient who presented with concerns of increased weakness. Patient was recently admitted and discharged following a right femoral below-knee bypass. During that stay patient also developed a right groin hematoma and required ICU care. This issue did resolve the patient was DC'd home. Patient apparently has had increased weakness at home with poor appetite and abdominal discomfort. Patient has past medical history of heart cath with stents, hyperlipidemia, hypertension, vascular disease, glaucoma and ex-smoker. EKG completed showing sinus rhythm with first-degree AV block. Chest x-ray completed showing no evidence for acute pulmonary disease. KUB x-r ay completed showing overall nonobstructive bowel gas pattern. Troponins positive at 0.041, 0.054 and 0.066. Patient's sodium 131. Pro calcitonin 0.18. Patient's vitals upon arrival a weighted temp at 102.8, heart rate 79, respiratory rate 18, blood pressure 165/64 with a pulse ox 98%. At this time patient was admitted. Patient given dose of Rocephin. Cardiology, vascular and infectious disease service is consulted. Blood culture ordered. Stool for C. diff ordered. Upon exam patient's abdomen slightly distended and tender. Will order ultrasound of abdomen. Patient denies chest pain or cough. Patient denies any urinary burning or frequency. On 06/16/2023 patient was seen and examined on the medical floor he is alert and oriented 3 in no apparent distress, there is no fever or chills no headache or dizziness no chest pain no shortness of breath no cough no nausea or vomiting no abdominal pain, patient is still having some diarrhea he has no urinary symptoms, he was evaluated by Dr. Varner, and will be taken emergently to the operating room, due to right groin hematoma and active bleeding. On 06/17/2023 patient is alert and oriented 3 currently resting comfortably in the intensive care unit. Status post right femoral cutdown redo groin right femoral exploration and control of hemorrhage. Hemoglobin stable at 9.9. Patient remains on oral vancomycin for C. diff. Nursing staff bowel movements have significantly improved. Critical care, vascular, cardiology and infectious disease services are following. Current vital signs 100.4, heart rate 73, respiratory rate 20, blood pressure 123/41 with a pulse ox 93% on room air On 06/18/2023 patient was seen and examined in the ICU he is alert and oriented 3 in no apparent distress there is no fever or chills no headache or dizziness no chest pain no shortness of breath no cough no nausea or vomiting no abdominal pain no diarrhea no blood in the stools no burning with urination no frequency or urgency and no hematuria. He remains on oral vancomycin for C. diff, temperature today is 97.7. Patient is improving gradually will continue to follow closely. Objective - Vital Signs Vital signs: Vital Signs Temp 97.7 F 06/18/23 08:00 Pulse 64 06/18/23 16:00 Resp 16 06/18/23 16:00 BP 138/55 06/18/23 16:00 Pulse Ox 97 06/18/23 16:00 FiO2 Intake & Output 06/17/23 06/18/23 06/18/23 18:59 06:59 18:59 Intake Total 2470 900 75 Output Total 473 358 30 Balance 1996 542 45 Weight 83.5 kg Intake: IV 900 900 75 Sodium Chloride 0.9% 1, 900 900 75 000 ml @ 75 mls/hr IV . [id number] [facility] Rx#:[id number] Oral 1020 Tube Feeding 240 Blood Product 310 Rc As-1 Unit 310 [id number] Output: Drainage 100 30 Right Groin 100 30 Urine 373 328 30 Other: Voiding Method Indwelling Catheter Indwelling Catheter Indwelling Catheter - Exam In general patient is alert and oriented x 3 in no distress HEENT head normocephalic and atraumatic Neck is supple no JVD no goiter no lymphadenopathy no carotid bruit Chest examination is clear to auscultation no crackles no wheezing Cardiac exam reveals regular heart sounds S1 and S2 no gallops no murmurs Abdomen is soft nontender no organomegaly with normal bowel sounds Extremity exam reveals no edema no cyanosis or clubbing Neurological examination reveals no gross focal deficits - Labs CBC & Chem 7: 06/18/23 05:35 06/18/23 05:35 Labs: Abnormal Lab Results - Last 24 Hours (Table) 06/16/23 06/17/23 06/18/23 Range/Units 15:18 18:08 05:35 RBC 3.67 L 3.38 L (4.30-5.90) m/uL Hgb 10.9 L 9.7 L (13.0-17.5) gm/dL Hct 33.7 L 31.0 L (39.0-53.0) % RDW 16.8 H 16.9 H (11.5-15.5) % Sodium (137-145) mmol/L Potassium (3.5-5.1) mmol/L Glucose (74-99) mg/dL Calcium (8.4-10.2) mg/dL Crossmatch See Detail 06/18/23 Range/Units 05:35 RBC (4.30-5.90) m/uL Hgb (13.0-17.5) gm/dL Hct (39.0-53.0) % RDW (11.5-15.5) % Sodium 133 L (137-145) mmol/L Potassium 3.2 L (3.5-5.1) mmol/L Glucose 104 H (74-99) mg/dL Calcium 7.3 L (8.4-10.2) mg/dL Crossmatch Microbiology - Last 24 Hours (Table) 06/14/23 21:04 Blood Culture - Preliminary Blood 06/15/23 18:21 Blood Culture - Preliminary Blood Assessment and Plan Assessment: 1. Right groin hematoma s/p right femoral exploration with cutdown and control of hemorrhage on 06/16/2023. Patient has recent history of right femoral en darterectomy with patch angioplasty more optimal bypass on 05/29/2023 patient did require hematoma evacuation at that time following initial procedure. Patient was discharged home on 06/03/2023 2. Stool positive for C. diff currently on oral vancomycin 3. Elevated troponins cardiology service is consulted 2-D echo ordered 4. Acute blood loss anemia secondary to hematoma 5. History of essential hypertension 6. History of hyperlipidemia 7. History of COPD 8. History of spinal stenosis with chronic back pain 9. Hyponatremia patient was given IV fluid repeat labs ordered DVT prophylaxis heparin. GI prophylaxis Protonix Cardiology consulted for elevated troponins 2-D echo ordered Infectious disease service is consulted Vascular surgery consulted Status post emergent hematoma evacuation and right groin exploration on 06/16/2023 Repeat labs ordered PT OT service is consulted
--- NOTE | 2023-06-18 18:00 | P.PN ---
Subjective Progress Note Date: 06/17/23 Principal diagnosis: C. diff colitis Patient is a 82-year-old male with a past medical history significant for hypertension hyperlipidemia peripheral arterial disease patient did have right femoral endarterectomy with patch angioplasty and selective right lower extremity angiogram and right femoral to below the knee popliteal in situ bypass on 05/29/2023, presented to hospital with weakness and decreased oral intake did have diarrhea and a fever stool for C. diff came back positive. Patient was taken to the OR s/p right groin exploration and control of the hemorrhage on 06/16/2023 subsequently patient was transferred to the ICU. On today's evaluation that is 06/17/2023 patient did have a low-grade fever 100.4 F this morning, the patient is currently breathing comfortably on the 2 L nasal cannula oxygen the patient denies having any chest pain or shortness of breath occasional cough no nausea vomiting abdominal pain and the patient diarrhea has slowed down. Patient did have a hemoglobin of 10.9, white count is 7.0 creatinine 0.99 blood and urine culture has been negative Objective - Vital Signs Vital signs: Vital Signs Temp 98 F 06/17/23 12:00 Pulse 72 06/17/23 12:00 Resp 25 H 06/17/23 12:00 BP 121/39 06/17/23 12:00 Pulse Ox 98 06/17/23 12:00 FiO2 Intake & Output 06/16/23 06/17/23 06/17/23 18:59 06:59 18:59 Intake Total 6566 571 5868 Output Total 850 455 230 Balance 509 304 8818 Weight 79.4 kg Intake: IV 1550 900 450 Sodium Chloride 0.9% 1, 900 450 000 ml @ 75 mls/hr IV . [id number] [facility] Rx#:[id number] Oral 900 Tube Feeding 240 Output: Drainage 40 50 Right Groin 40 50 Urine 700 415 180 Estimated Blood Loss 150 Other: Voiding Method Indwelling Catheter Indwelling Catheter # Bowel Movements 1 - Exam GENERAL DESCRIPTION: An elderly male lying in bed in no distress RESPIRATORY SYSTEM: Unlabored breathing , decreased breath sounds at bases HEART: S1 S2 regular rate and rhythm , ABDOMEN: Soft , no tenderness EXTREMITIES: No edema feet - Labs CBC & Chem 7: 06/18/23 05:35 06/18/23 05:35 Labs: Abnormal Lab Results - Last 24 Hours (Table) 06/16/23 06/17/23 06/17/23 Range/Units 16:56 04:29 04:29 RBC 3.25 L (4.30-5.90) m/uL Hgb 9.9 L (13.0-17.5) gm/dL Hct 29.0 L (39.0-53.0) % RDW 17.3 H (11.5-15.5) % Lymphocytes # 0.4 L (1.0-4.8) k/uL Sodium 132 L (137-145) mmol/L Calcium 7.7 L (8.4-10.2) mg/dL Ur Specific [place]vel 1.050 H (1.001-1.035) Urine Protein 1+ H (Negative) Urine Ketones 1+ H (Negative) Urine Mucus Few H (None) /hpf 06/17/23 Range/Units 11:15 RBC 3.02 L (4.30-5.90) m/uL Hgb 8.8 L (13.0-17.5) gm/dL Hct 27.2 L (39.0-53.0) % RDW 17.0 H (11.5-15.5) % Lymphocytes # (1.0-4.8) k/uL Sodium (137-145) mmol/L Calcium (8.4-10.2) mg/dL Ur Specific [place]vel (1.001-1.035) Urine Protein (Negative) Urine Ketones (Negative) Urine Mucus (None) /hpf Microbiology - Last 24 Hours (Table) 06/15/23 18:21 Blood Culture - Preliminary Blood 06/15/23 09:54 Urine Culture - Final Urine,Catheterized 06/14/23 21:04 Blood Culture - Preliminary Blood Assessment and Plan (1) C. difficile colitis Current Visit: Yes Status: Acute Code(s): A04.72 - ENTEROCOLITIS D/T CLOSTRIDIUM DIFFICILE, NOT SPCF RECUR SNOMED Code(s): 097265151 Plan: 1patient presented hospital with generalized weakness feeling lightheaded and dizzy in this patient with recent extensive vascular surgery on the right lower extremity for critical limb ischemia patient did have minimal serous drainage from the right groin however overall no cellulitis was noticed patient did have some diarrhea and some tenderness to the left lower quadrant area with a question of possible colitis, stool for C. diff came back positive 2patient seem to have shown some clinical improvement as far as the diarrhea is concerned and white count is normal with current patient on vancomycin and and Questran and monitor clinical course closely Dictation was produced using [employer] dictation software. please excuse any gramma tical, word or spelling errors. Time with Patient: Less than 30
--- NOTE | 2023-06-18 18:02 | P.PN ---
Subjective Progress Note Date: 06/18/23 Principal diagnosis: C. diff colitis Patient is a 82-year-old male with a past medical history significant for hypertension hyperlipidemia peripheral arterial disease patient did have right femoral endarterectomy with patch angioplasty and selective right lower extremity angiogram and right femoral to below the knee popliteal in situ bypass on 05/29/2023, presented to hospital with weakness and decreased oral intake did have diarrhea and a fever stool for C. diff came back positive. Patient was taken to the OR s/p right groin exploration and control of the hemorrhage on 06/16/2023 subsequently patient was transferred to the ICU. On today's evaluation that is 06/18/2023, the patient did has a resolution of his low-grade fever and the patient is afebrile this morning the patient is breathing comfortably on the 2 L nasal cannula oxygen has been complaining of cough and has been of some sputum no nausea vomiting no abdominal pain and the patient diarrhea has slowed. Patient did have a white count of 6.8 hemoglobin is 9.7 creatinine 0.89 blood urine culture has been negative patient did have a chest x-ray this morning right basilar patchy opacity may represent atelectasis versus infiltrate Objective - Vital Signs Vital signs: Vital Signs Temp 97.7 F 06/18/23 08:00 Pulse 65 06/18/23 08:00 Resp 17 06/18/23 08:00 BP 124/51 06/18/23 08:00 Pulse Ox 97 06/18/23 08:00 FiO2 Intake & Output 06/17/23 06/18/23 06/18/23 18:59 06:59 18:59 Intake Total 2470 900 75 Output Total 473 358 30 Balance 1996 542 45 Weight 83.5 kg Intake: IV 900 900 75 Sodium Chloride 0.9% 1, 900 900 75 000 ml @ 75 mls/hr IV . [id number] [facility] Rx#:[id number] Oral 1020 Tube Feeding 240 Blood Product 310 Rc As-1 Unit 310 [id number] Output: Drainage 100 30 Right Groin 100 30 Urine 373 328 30 Other: Voiding Method Indwelling Catheter Indwelling Catheter Indwelling Catheter - Exam GENERAL DESCRIPTION: An elderly male lying in bed in no distress RESPIRATORY SYSTEM: Unlabored breathing , decreased breath sounds at bases HEART: S1 S2 regular rate and rhythm , ABDOMEN: Soft , no tenderness EXTREMITIES: No edema feet - Labs CBC & Chem 7: 06/18/23 05:35 06/18/23 05:35 Labs: Abnormal Lab Results - Last 24 Hours (Table) 06/16/23 06/17/23 06/18/23 Range/Units 15:18 18:08 05:35 RBC 3.67 L 3.38 L (4.30-5.90) m/uL Hgb 10.9 L 9.7 L (13.0-17.5) gm/dL Hct 33.7 L 31.0 L (39.0-53.0) % RDW 16.8 H 16.9 H (11.5-15.5) % Sodium (137-145) mmol/L Potassium (3.5-5.1) mmol/L Glucose (74-99) mg/dL Calcium (8.4-10.2) mg/dL Crossmatch See Detail 06/18/23 Range/Units 05:35 RBC (4.30-5.90) m/uL Hgb (13.0-17.5) gm/dL Hct (39.0-53.0) % RDW (11.5-15.5) % Sodium 133 L (137-145) mmol/L Potassium 3.2 L (3.5-5.1) mmol/L Glucose 104 H (74-99) mg/dL Calcium 7.3 L (8.4-10.2) mg/dL Crossmatch Microbiology - Last 24 Hours (Table) 06/14/23 21:04 Blood Culture - Preliminary Blood 06/15/23 18:21 Blood Culture - Preliminary Blood Assessment and Plan (1) C. difficile colitis Current Visit: Yes Status: Acute Code(s): A04.72 - ENTEROCOLITIS D/T CLOSTRIDIUM DIFFICILE, NOT SPCF RECUR SNOMED Code(s): 869070351 Plan: 1patient presented hospital with generalized weakness feeling lightheaded and dizzy in this patient with recent extensive vascular surgery on the right lower extremity for critical limb ischemia patient did have minimal serous drainage from the right groin however overall no cellulitis was noticed patient did have some diarrhea and some tenderness to the left lower quadrant area with a question of possible colitis, stool for C. diff came back positive 2patient seem to have shown some clinical improvement as far as the diarrhea is concerned and white count is normal , Patient continues vancomycin and Questran as needed. 3patient did have a right lower lobe infiltrate patient is complaining of cough and bring up some purulent sputum we will check a procalcitonin and send a sputum for Gram stain and culture Dictation was produced using [employer] dictation software. please excuse any grammatical, word or spelling errors. Time with Patient: Less than 30
[2023-06-18] MEDS: ATORVASTATIN 40 MG TAB PO SCH (20:55)
[2023-06-18] MEDS ORDERED: POTASSIUM CHLORIDE ER 20 MEQ TAB.ER PO SCH (22:00)
[2023-06-18] MEDS: ACETAMINOPHEN TAB 325 MG TAB PO PRN (23:09)
[2023-06-19] MEDS: SODIUM CHLORIDE 0.9% 1,000 ML IV SCH (03:33)
[2023-06-19 06:13] LABS: Anisocytosis Slight; Basophils % (A) 0 %; Eosinophils # (A) 0.4 k/uL (0-0.7); Eosinophils % (A) 7 %; HCT 32.3 % (39.0-53.0); HGB 10.4 gm/dL (13.0-17.5); Hypochromasia Moderate; Lymphocytes # (A) 0.6 k/uL (1.0-4.8); Lymphocytes % (A) 10 %; MCH 29.1 pg (25.0-35.0); MCHC 32.3 g/dL (31.0-37.0); MCV 90.3 fL (80.0-100.0); Monocytes # (A) 0.4 k/uL (0-1.0); Monocytes % (A) 6 %; Neutrophils # (A) 4.4 k/uL (1.3-7.7); Neutrophils % (A) 75 %; Platelet Count 222 k/uL (150-450); Poikilocytosis Slight; RBC 3.58 m/uL (4.30-5.90); RDW 16.7 % (11.5-15.5); WBC 5.9 k/uL (3.8-10.6)
[2023-06-19 06:26] LABS: ALT 19 U/L (4-49); AST 36 U/L (17-59); African American GFR (CKD) >90 (>60 ml/min/1.73 sqM); Albumin 2.2 g/dL (3.5-5.0); Alkaline Phosphatase 123 U/L (38-126); Anion Gap 2 mmol/L; Blood Urea Nitrogen 14 mg/dL (9-20); Calcium 7.3 mg/dL (8.4-10.2); Carbon Dioxide 28 mmol/L (22-30); Chloride 103 mmol/L (98-107); Glucose 98 mg/dL (74-99); Non-African American GFR(CKD) 80 (>60 ml/min/1.73 sqM); Potassium 3.7 mmol/L (3.5-5.1); Sodium 133 mmol/L (137-145); Total Bilirubin 1.6 mg/dL (0.2-1.3); Total Protein 4.6 g/dL (6.3-8.2)
[2023-06-19] MEDS: PANTOPRAZOLE 40 MG TABLET PO SCH (06:32)
--- NOTE | 2023-06-19 08:08 | P.PN ---
Subjective Progress Note Date: 06/19/23 Principal diagnosis: Weakness Patient was seen and examined today in the ICU as a follow-up. Patient actually has been downgraded to 3 S. he is sitting up in the bedside chair. He is without any complaints at this time. Hemoglobin is stable at 10.4. Apparently overnight he did have some saturation of his dressing with getting in and out of bed. No abdominal pain chest pain but states he was a little short of breath earlier. He is afebrile. JOSE ANGEL drain with 120 mls out yesterday of dark red blood. Good urine output. Objective - Vital Signs Vital signs: Vital Signs Temp 98 F 06/19/23 03:31 Pulse 68 06/19/23 03:31 Resp 14 06/19/23 03:31 BP 123/50 06/19/23 03:31 Pulse Ox 96 06/19/23 03:31 FiO2 Intake & Output 06/18/23 06/19/23 06/19/23 18:59 06:59 18:59 Intake Total 75 400 Output Total 30 515 Balance 45 -115 Weight 81.2 kg Intake: IV 75 Sodium Chloride 0.9% 1, 75 000 ml @ 10 mls/hr IV . Q24H [facility] Rx#:[id number] Oral 400 Output: Drainage 140 Right Groin 140 Urine 30 375 Other: Voiding Method Indwelling Catheter Indwelling Catheter - Exam General appearance: The patient is alert, oriented, appears in no acute distress. HET: Head is normocephalic and atraumatic. Neck: Supple. Heart: Regular. Lungs: Equal expansion, normal respiratory effort. Abdomen: Soft, nontender, nondistended. Extremities: Right groin with dressing in place clean dry and intact. Hematoma marked by nursing, improving. There is still firmness of right lower abdomen which is improving, pelvis is softer. JOSE ANGEL drain in place with serosanguineous drainage. Right lower extremity warm to the touch with palpable graft, lower extremity edema. Neurological: No focal deficits. - Labs CBC & Chem 7: 06/19/23 05:47 06/19/23 05:47 Labs: Abnormal Lab Results - Last 24 Hours (Table) 06/19/23 06/19/23 Range/Units 05:47 05:47 RBC 3.58 L (4.30-5.90) m/uL Hgb 10.4 L (13.0-17.5) gm/dL Hct 32.3 L (39.0-53.0) % RDW 16.7 H (11.5-15.5) % Lymphocytes # 0.6 L (1.0-4.8) k/uL Sodium 133 L (137-145) mmol/L Calcium 7.3 L (8.4-10.2) mg/dL Total Bilirubin 1.6 H (0.2-1.3) mg/dL Total Protein 4.6 L (6.3-8.2) g/dL Albumin 2.2 L (3.5-5.0) g/dL Microbiology - Last 24 Hours (Table) 06/15/23 18:21 Blood Culture - Preliminary Blood 06/14/23 21:04 Blood Culture - Preliminary Blood Assessment and Plan Assessment: 1. Right groin hematoma, active bleeding status post right femoral exploration control of hemorrhage 2. Previous right lower extremity femoral to popliteal artery bypass with in situ vein 3. Weakness 4. Abdominal pain with nausea and diarrhea 5. Positive C. difficile 6. Elevated troponins 7. History of peripheral arterial disease Plan: 1. Keep right groin clean, apply dressing daily, change as needed 2. CBC daily 3. Continue to hold Plavix. May resume aspirin 81 mg daily 4. May increase activity to bedside chair 5. Okay for consistent carbohydrate diet 6. Incentive spirometer to bedside 7. Recommend subacute rehab on discharge 8. Further recommendations forthcoming from vascular surgeon Thank you for this consultation, we will continue to follow. The impression and plan of care has been dictated as directed. Dr. Varner I performed a history and examination of this patient, discussed the same with the dictator. I agree with the dictator's note ,documented as a scribe. Any additional findings or plans will be noted.
--- NOTE | 2023-06-19 08:24 | P.PN ---
Subjective Progress Note Date: 06/19/23 Principal diagnosis: CAD/PAD The patient is an 82-year-old gentleman with coronary artery disease and lower extremities PAD as well as hypertension and dyslipidemia who underwent recently right femoral endarterectomy followed by right groin exploration and hematoma evacuation was opened thrombectomy as well as. The patient was admitted to the hospital with abdominal discomfort and the right groin discomfort and he underwent yesterday also right groin evacuation of hematoma was performed by Dr. Varner. We consulted initially to see the patient for mildly elevated troponin which we decided to treat medically in the absence of any chest pain or chest discomfort. June 17 The patient was seen this morning. He is a stable. He is not on any vasopressors. He has been maintaining normal sinus mechanism. Hemoglobin is a stable above 8. From a cardiovascular standpoint of view, I would continue the current medical regimen. The patient can be transferred out of the intensive care unit. June [id number] The patient was seen and evaluated this morning. He is short of breath experiencing expiratory wheezing as well. He also have bilateral lower extremity edema. The patient is in somewhat fluid overloaded. I am going to obtain a chest x-ray and also anti-proBNP and give the patient 20 mg of Lasix IV. For some reason he is not on any anti-platelet at this point. Than that to be addressed by the vascular team. June 192022 The patient was seen and evaluated this morning. He seems to be slightly better today. His wheezing has improved. He diuresed well after 20 mg of Lasix IV yesterday. Still the LAD is on examination was mild bilateral lower extremity edema and diminished breathing sounds. The chest x-ray showed findings consistent with pulmonary vascular congestion. Hemoglobin is stable. I'm going to give the patient additional 20 mg of Lasix IV today and continue monitor the kidney function and electrolytes. Assessment Status post right groin evacuation of hematoma Status post right femoral endarterectomy Coronary artery disease with prior angioplasty Multiple comorbid conditions Anemia secondary to bleeding Bilateral lower extremities edema/volume overload Plan Continue the current medical regimen Continue monitor the hemoglobin and kidney function Additional 20 mg of Lasix IV once Continue monitor the kidney function and electrolytes Follow-up with the patient Objective - Vital Signs Vital signs: Vital Signs Temp 98 F 06/19/23 03:31 Pulse 68 06/19/23 03:31 Resp 14 08/18/23 03:31 BP 123/50 06/19/23 03:31 Pulse Ox 96 06/19/23 03:31 FiO2 Intake & Output 06/18/23 06/19/23 06/19/23 18:59 06:59 18:59 Intake Total 75 400 Output Total 30 515 Balance 45 -115 Weight 81.2 kg Intake: IV 75 Sodium Chloride 0.9% 1, 75 000 ml @ 10 mls/hr IV . Q[facility]H [facility] Rx#:[id number] Oral 400 Output: Drainage 140 Right Groin 140 Urine 30 375 Other: Voiding Method Indwelling Catheter Indwelling Catheter - Labs CBC & Chem 7: 06/19/23 05:47 06/19/23 05:47 Labs: Abnormal Lab Results - Last 24 Hours (Table) 06/19/23 06/19/23 Range/Units 05:47 05:47 RBC 3.58 L (4.30-5.90) m/uL Hgb 10.4 L (13.0-17.5) gm/dL Hct 32.3 L (39.0-53.0) % RDW 16.7 H (11.5-15.5) % Lymphocytes # 0.6 L (1.0-4.8) k/uL Sodium 133 L (137-145) mmol/L Calcium 7.3 L (8.4-10.2) mg/dL Total Bilirubin 1.6 H (0.2-1.3) mg/dL Total Protein 4.6 L (6.3-8.2) g/dL Albumin 2.2 L (3.5-5.0) g/dL Microbiology - Last 24 Hours (Table) 06/15/23 18:21 Blood Culture - Preliminary Blood 06/14/23 21:04 Blood Culture - Preliminary Blood
[2023-06-19] MEDS ORDERED: FUROSEMIDE 10 MG/ML 2 ML VIAL IV ONE (08:45)
[2023-06-19 09:40] VITALS: RESP 16
[2023-06-19] MEDS: ASPIRIN 81 MG PO SCH (09:47)
[2023-06-19] MEDS: VANCOMYCIN 125 MG CAPSULE PO SCH ×4 (09:47→21:03)
[2023-06-19] MEDS: hydroCHLOROthiazide 12.5 MG CAP PO SCH (09:48)
[2023-06-19] MEDS: METOPROLOL TARTRATE 12.5 MG TAB PO SCH ×2 (09:48→21:03)
[2023-06-19] MEDS: GABAPENTIN 300 MG CAP PO SCH ×3 (09:48→21:03)
[2023-06-19] MEDS: CHOLESTYRAMINE (WITH SUGAR) 4 GM PACKET PO SCH ×2 (09:48→19:09)
[2023-06-19] MEDS: LATANOPROST 0.005% OPHTH DROPS 2.5 ML BTL BOTH EYES SCH (09:58)
[2023-06-19] MEDS: DORZOLAMIDE-TIMOLOL 2.23%/0.68 10ML BTL BOTH EYES SCH ×2 (09:58→21:05)
--- NOTE | 2023-06-19 09:59 | P.PN ---
Subjective Progress Note Date: 06/19/23 Saravanan Sharma, is an 82-year-old male patient who presented with concerns of increased weakness. Patient was recently admitted and discharged following a right femoral below-knee bypass. During that stay patient also developed a right groin hematoma and required ICU care. This issue did resolve the patient was DC'd home. Patient apparently has had increased weakness at home with poor appetite and abdominal discomfort. Patient has past medical history of heart cath with stents, hyperlipidemia, hypertension, vascular disease, glaucoma and ex-smoker. EKG completed showing sinus rhythm with first-degree AV block. Chest x-ray completed showing no evidence for acute pulmonary disease. KUB x-r ay completed showing overall nonobstructive bowel gas pattern. Troponins positive at 0.041, 0.054 and 0.066. Patient's sodium 131. Pro calcitonin 0.18. Patient's vitals upon arrival a weighted temp at 102.8, heart rate 79, respiratory rate 18, blood pressure 165/64 with a pulse ox 98%. At this time patient was admitted. Patient given dose of Rocephin. Cardiology, vascular and infectious disease service is consulted. Blood culture ordered. Stool for C. diff ordered. Upon exam patient's abdomen slightly distended and tender. Will order ultrasound of abdomen. Patient denies chest pain or cough. Patient denies any urinary burning or frequency. On 06/16/2023 patient was seen and examined on the medical floor he is alert and oriented 3 in no apparent distress, there is no fever or chills no headache or dizziness no chest pain no shortness of breath no cough no nausea or vomiting no abdominal pain, patient is still having some diarrhea he has no urinary symptoms, he was evaluated by Dr. Varner, and will be taken emergently to the operating room, due to right groin hematoma and active bleeding. On 06/17/2023 patient is alert and oriented 3 currently resting comfortably in the intensive care unit. Status post right femoral cutdown redo groin right femoral exploration and control of hemorrhage. Hemoglobin stable at 9.9. Patient remains on oral vancomycin for C. diff. Nursing staff bowel movements have significantly improved. Critical care, vascular, cardiology and infectious disease services are following. Current vital signs 100.4, heart rate 73, respiratory rate 20, blood pressure 123/41 with a pulse ox 93% on room air On 06/18/2023 patient was seen and examined in the ICU he is alert and oriented 3 in no apparent distress there is no fever or chills no headache or dizziness no chest pain no shortness of breath no cough no nausea or vomiting no abdominal pain no diarrhea no blood in the stools no burning with urination no frequency or urgency and no hematuria. He remains on oral vancomycin for C. diff, temperature today is 97.7. Patient is improving gradually will continue to follow closely. On 06/19/2023 patient remains in the intensive care unit alert and oriented 3. Patient currently having increased wheezing and lower infection or any edema secondary of IV Lasix ordered per cardiology. Continue DuoNeb breathing treatments. Per nursing staff patient also had an episode of diarrhea this a.m. patient remains on oral Vanco for C. diff infection. Current vital signs temp 97.8, heart rate 66, respiratory rate 16, blood pressure 106/50 with a pulse ox of 94% on room air Objective - Vital Signs Vital signs: Vital Signs Temp 97.8 F 06/19/23 08:00 Pulse 66 06/19/23 08:00 Resp 16 06/19/23 08:00 BP 106/50 06/19/23 08:00 Pulse Ox 94 L 06/19/23 08:00 FiO2 Intake & Output 06/18/23 06/19/23 06/19/23 18:59 06:59 18:59 Intake Total 75 400 240 Output Total 30 515 225 Balance 45 -115 15 Weight 81.2 kg Intake: IV 75 Sodium Chloride 0.9% 1, 75 000 ml @ 10 mls/hr IV . Q24H [facility] Rx#:[id number] Oral 400 240 Output: Drainage 140 Right Groin 140 Urine 30 375 225 Other: Voiding Method Indwelling Catheter Indwelling Catheter - Exam In general patient is alert and oriented x 3 in no distress HEENT head normocephalic and atraumatic Neck is supple no JVD no goiter no lymphadenopathy no carotid bruit Chest examination is clear to auscultation no crackles no wheezing Cardiac exam reveals regular heart sounds S1 and S2 no gallops no murmurs Abdomen is soft nontender no organomegaly with normal bowel sounds Extremity exam reveals no edema no cyanosis or clubbing Neurological examination reveals no gross focal deficits - Labs CBC & Chem 7: 06/19/23 05:47 06/19/23 05:47 Labs: Abnormal Lab Results - Last 24 Hours (Table) 06/19/23 06/19/23 06/19/23 Range/Units 05:47 05:47 05:47 RBC 3.58 L (4.30-5.90) m/uL Hgb 10.4 L (13.0-17.5) gm/dL Hct 32.3 L (39.0-53.0) % RDW 16.7 H (11.5-15.5) % Lymphocytes # 0.6 L (1.0-4.8) k/uL Sodium 133 L (137-145) mmol/L Calcium 7.3 L (8.4-10.2) mg/dL Total Bilirubin 1.6 H (0.2-1.3) mg/dL Total Protein 4.6 L (6.3-8.2) g/dL Albumin 2.2 L (3.5-5.0) g/dL Procalcitonin 0.43 H (0.02-0.09) ng/mL Microbiology - Last 24 Hours (Table) 06/15/23 18:21 Blood Culture - Preliminary Blood 06/14/23 21:04 Blood Culture - Preliminary Blood Assessment and Plan Assessment: 1. Right groin hematoma s/p right femoral exploration with cutdown and control of hemorrhage on 06/16/2023. Patient has recent history of right femoral endarterectomy with patch angioplasty more optimal bypass on 05/29/2023 patient did require hematoma evacuation at that time following initial procedure. Patient was discharged home on 06/03/2023 2. Stool positive for C. diff currently on oral vancomycin 3. Elevated troponins cardiology service is consulted 2-D echo ordered 4. Acute blood loss anemia secondary to hematoma 5. History of essential hypertension 6. History of hyperlipidemia 7. History of COPD 8. History of spinal stenosis with chronic back pain 9. Hyponatremia patient was given IV fluid repeat labs ordered 10. Increased wheezing and lower extremity edema. Continue DuoNeb breathing treatments. IV Lasix ordered per cardiology DVT prophylaxis heparin. GI prophylaxis Protonix Cardiology consulted for elevated troponins 2-D echo ordered Infectious disease service is consulted Vascular surgery consulted Status post emergent hematoma evacuation and right groin exploration on 06/16/2023 Repeat labs ordered PT OT service is consulted
--- NOTE | 2023-06-19 10:31 | P.PN ---
Subjective Progress Note Date: 06/19/23 I am seeing this patient in new consultation today 06/17/2023 in the intensive care unit, patient is currently postoperative day #1 following a right femoral exploration with cut down and control of hemorrhage. Patient is a 82-year-old white male with past medical history significant for hyperlipidemia, h ypertension, coronary artery disease with prior coronary stents, and peripheral arterial disease with recent right femoral endarterectomy with patch angioplasty and femoral-popliteal bypass on 05/29/2023. This was complicated with postoperative bleeding and right groin hematoma, and the patient did return to the OR the following day for right groin exploration with hematoma evacuation and saphenous vein bypass repair. There was open thrombectomy of the right femoral, saphenous vein bypass, and distal popliteal artery. He was discharged home on June 03. The patient did return to the emergency room on mostly complaining of nausea, vomiting, and diarrhea. The patient was found to be positive for C. diff, and placed on oral vancomycin. An abdomen and pelvis CT angiogram showed a 19 x 4.3 x 7.7 cm right anterior lower abdominal/inguinal region hematoma. There appeared to be extravasation within this region thought to be coming from the right common femoral artery. The patient was emergently taken to the operating room, and is postoperative day #1 following a right femor al exploration with cut down and control of hemorrhage. Documented EBL was only 150 ML's. Patient is currently lying in bed, supine, in no acute distress. He is on 2 L/m nasal cannula oxygenating at 100%, and this probably can be weaned off. Patient's right groin has an incisional dressing that is clean, dry. Right groin is firm without any obvious acute bleeding noted. There is a JOSE ANGEL drain with a small amount of serosanguineous output. Bilateral lower extremity neurovascular status appears intact. Patient's nausea, vomiting, diarrhea has reportedly improved since his admission to the hospital and initiation of oral Vanco. Most recent CBC shows WBC count of 5.1, hemoglobin stable at 11.1, hematocrit 35.3, and platelets 230. Most recent BMP from yesterday shows a sodium 133, potassium 4.1, chloride 103, serum bicarbonate 21, BUN 17, creatinine 0.89, glucose 97. Troponins were mildly elevated at 0.041, 54, and 0.066 respectively. Patient denies any chest pain. No obvious acute ischemic changes seen on ECG. Normal saline is infusing at 75 mL per hour. Urine output is adequate, urine looks concentrated. Patient is hemodynamically stable at this point, and will be monitored in the intensive care unit overnight. The patient is seen today 06/18/2023 in follow-up in the intensive care unit. He is currently sitting up in bed. Awake and alert in no acute distress. He is maintaining O2 saturations in the 90s on 2 L/m per nasal cannula. He is a bit short of breath with wheezing this morning. He is given Lasix 40 mg IVP 1. Normal saline will be decreased to KVO. His x-ray shows right basilar patchy airspace opacity suspect atelectasis versus infiltrate. There is cardiomegaly but no overt pulmonary vascular congestion. Blood cultures reveal no growth. Urine culture reveals no growth. White count 6.8. Hemoglobin 9.7. Platelets 214. Sodium 133. Potassium 3.2. Bicarb 24. BUN 17. Creatinine 0.89. Glucose 104. Right groin site is stable. Remains on oral vancomycin for his C. difficile infection. The patient is seen today 06/19/2023 in follow-up in the intensive care unit. He is currently sitting up in a chair at the bedside. Awake and alert in no acute distress. He is currently maintaining good O2 saturations in the 90s on room air. He has normal saline at KVO. His right groin dressing has been dry and intact. JOSE ANGEL drain remains in place. Right lower quadrant and pelvic area is softer. He is status post 1 unit of packed red blood cells this admission. Current hemoglobin 10.4. Platelets 222. White count 5.9. Sodium 133. Pota ssium 3.7. Bicarb 28. BUN 14. Creatinine 0.88. Pro-calcitonin 0.43. Blood cultures revealed no growth. Urine culture revealed no growth. He remains on vancomycin for his C. difficile infection. Objective - Vital Signs Vital signs: Vital Signs Temp 97.8 F 06/19/23 08:00 Pulse 66 06/19/23 08:00 Resp 16 06/19/23 08:00 BP 106/50 06/19/23 08:00 Pulse Ox 94 L 06/19/23 08:00 FiO2 Intake & Output 06/18/23 06/19/23 06/19/23 18:59 06:59 18:59 Intake Total 75 400 260 Output Total 30 515 280 Balance 45 -115 -20 Weight 81.2 kg Intake: IV 75 20 Invasive Line 2 20 Sodium Chloride 0.9% 1, 75 000 ml @ 10 mls/hr IV . Q24H [facility] Rx#:[id number] Oral 400 240 Output: Drainage 140 55 Right Groin 140 55 Urine 30 375 225 Other: Voiding Method Indwelling Catheter Indwelling Catheter Indwelling Catheter - Exam GENERAL EXAM: Alert, 82-year-old male, on room air, up in a chair, comfortable in no apparent distress. HEAD: Normocephalic and atraumatic EYES: Normal reaction of pupils, equal size. NOSE: Clear with pink turbinates. THROAT: No erythema or exudates. NECK: No masses, no JVD. CHEST: No chest wall deformity. LUNGS: Equal air entry with minimal inspiratory bibasilar crackles, mild expiratory wheeze. CVS: S1 and S2 normal with no audible murmur, regular rhythm. No extra heart sounds ABDOMEN: Abdomen slightly distended but nontender, and there appears to be a hiatal hernia. No hepatosplenomegaly, active bowel sounds, no guarding or rigidity. SPINE: No scoliosis or deformity SKIN: No rashes CENTRAL NERVOUS SYSTEM: No focal deficits, tone is normal in all 4 extremities. EXTREMITIES: There is a right femoral incision site with dressing clean and dry. Groin is softer without any obvious acute blood loss. There is a JOSE ANGEL drain with serosanguineous output. Bilateral lower extremities have 2+ pitting edema. Peripheral pulses are intact. - Labs CBC & Chem 7: 06/19/23 05:47 06/19/23 05:47 Labs: Abnormal Lab Results - Last 24 Hours (Table) 06/19/23 06/19/23 06/19/23 Range/Units 05:47 05:47 05:47 RBC 3.58 L (4.30-5.90) m/uL Hgb 10.4 L (13.0-17.5) gm/dL Hct 32.3 L (39.0-53.0) % RDW 16.7 H (11.5-15.5) % Lymphocytes # 0.6 L (1.0-4.8) k/uL Sodium 133 L (137-145) mmol/L Calcium 7.3 L (8.4-10.2) mg/dL Total Bilirubin 1.6 H (0.2-1.3) mg/dL Total Protein 4.6 L (6.3-8.2) g/dL Albumin 2.2 L (3.5-5.0) g/dL Procalcitonin 0.43 H (0.02-0.09) ng/mL Microbiology - Last 24 Hours (Table) 06/15/23 18:21 Blood Culture - Preliminary Blood 06/14/23 21:04 Blood Culture - Preliminary Blood Assessment and Plan Assessment: Postoperative day #3 following a right femoral exploration with cut down and control of hemorrhage. Recent history of a right femoral endarterectomy with patch angioplasty and femoral-popliteal bypass on 05/29/2023. This was complicated by postoperative bleeding and right groin hematoma, and the patient did return to the OR the following day for right groin exploration with hematoma evacuation and saphenous vein bypass repair. There was also an open thrombectomy of the right femoral, saphenous vein bypass, and distal popliteal artery. He was discharged home on June 03, and returned to the emergency room on June 14, where he was found to have a 19 x 4.3 x 7.7 cm right anterior lower abdominal/inguinal region hematoma with extravasation within this region thought to be coming from the right common femoral artery. Patient was emergently taken to the operating room 06/16/2023. Dressing today is dry and intact. JOSE ANGEL drain remains in place. Acute blood loss anemia, secondary to above, status post 1 unit of packed red blood cells. Current hemoglobin 10.4 C. diff colitis, on oral vancomycin, improving Elevated troponins, not likely related to ACS Essential hypertension Hyperlipidemia Peripheral arterial disease Coronary artery disease, with previous coronary stent to the left circumflex GERD History of DVT Plan: The patient was seen and evaluated Labs and medications reviewed Continue the current treatment plan 3 S. overflow patient We will continue to follow I have personally seen and examined the patient, performed the documentation and the assessment and plan as written. Number of minutes spent on the visit: 10.
[2023-06-19 11:49] VITALS: BMI 32.7
[2023-06-19] MEDS: HYDROmorphone 1 MG/ML 1 ML SYRINGE IVP PRN ×2 (13:56→21:29)
--- NOTE | 2023-06-19 15:39 | P.PN ---
Subjective Progress Note Date: 06/19/23 Principal diagnosis: C. diff colitis Patient is a 82-year-old male with a past medical history significant for hypertension hyperlipidemia peripheral arterial disease patient did have right femoral endarterectomy with patch angioplasty and selective right lower extremity angiogram and right femoral to below the knee popliteal in situ bypass on 05/29/2023, presented to hospital with weakness and decreased oral intake did have diarrhea and a fever stool for C. diff came back positive. Patient was taken to the OR s/p right groin exploration and control of the hemorrhage on 06/16/2023 subsequently patient was transferred to the ICU. On today's evaluation that is 06/19/2023, the patient is afebrile, the patient is breathing comfortably on room air, the patient denies any worsening cough or sputum production no nausea vomiting no abdominal pain and the patient diarrhea has slowed. Patient did have a white count of 5.9 hemoglobin is 10.4 creatinine 0.88 blood urine culture has been negative patient did have a chest x-ray this morning right basilar patchy opacity may represent atelectasis versus infiltrate Objective - Vital Signs Vital signs: Vital Signs Temp 97.8 F 06/19/23 08:00 Pulse 66 06/19/23 08:00 Resp 16 06/19/23 08:00 BP 106/50 06/19/23 08:00 Pulse Ox 94 L 06/19/23 08:00 FiO2 Intake & Output 06/18/23 06/19/23 06/19/23 18:59 06:59 18:59 Intake Total 75 400 260 Output Total 30 515 280 Balance 45 -115 -20 Weight 81.2 kg 81.2 kg Intake: IV 75 20 Invasive Line 2 20 Sodium Chloride 0.9% 1, 75 000 ml @ 10 mls/hr IV . Q24H [facility] Rx#:[id number] Oral 400 240 Output: Drainage 140 55 Right Groin 140 55 Urine 30 375 225 Other: Voiding Method Indwelling Catheter Indwelling Catheter Indwelling Catheter - Exam GENERAL DESCRIPTION: An elderly male lying in bed in no distress RESPIRATORY SYSTEM: Unlabored breathing , decreased breath sounds at bases HEART: S1 S2 regular rate and rhythm , ABDOMEN: Soft , no tenderness EXTREMITIES: No edema feet - Labs CBC & Chem 7: 06/19/23 05:47 06/19/23 05:47 Labs: Abnormal Lab Results - Last 24 Hours (Table) 06/19/23 06/19/23 06/19/23 Range/Units 05:47 05:47 05:47 RBC 3.58 L (4.30-5.90) m/uL Hgb 10.4 L (13.0-17.5) gm/dL Hct 32.3 L (39.0-53.0) % RDW 16.7 H (11.5-15.5) % Lymphocytes # 0.6 L (1.0-4.8) k/uL Sodium 133 L (137-145) mmol/L Calcium 7.3 L (8.4-10.2) mg/dL Total Bilirubin 1.6 H (0.2-1.3) mg/dL Total Protein 4.6 L (6.3-8.2) g/dL Albumin 2.2 L (3.5-5.0) g/dL Procalcitonin 0.43 H (0.02-0.09) ng/mL Microbiology - Last 24 Hours (Table) 06/15/23 18:21 Blood Culture - Preliminary Blood 06/14/23 21:04 Blood Culture - Preliminary Blood Assessment and Plan (1) C. difficile colitis Current Visit: Yes Status: Acute Code(s): A04.72 - ENTEROCOLITIS D/T CLOSTRIDIUM DIFFICILE, NOT SPCF RECUR SNOMED Code(s): 067071244 Plan: 1patient presented hospital with generalized weakness feeling lightheaded and dizzy in this patient with recent extensive vascular surgery on the right lower extremity for critical limb ischemia patient did have minimal serous drainage from the right groin however overall no cellulitis was noticed patient did have some diarrhea and some tenderness to the left lower quadrant area with a questi on of possible colitis, stool for C. diff came back positive 2patient seem to have shown some clinical improvement as far as the diarrhea is concerned and white count is normal , Patient to continue with vancomycin and Questran as needed. 3patient did have a right lower lobe infiltrate , patient however is breathing comfortably on room air,, a procalcitonin not significantly elevated, keeping in mind active C. diff colitis would hold on adding antibiotic therapy at this point Dictation was produced using Heliate[employer] software. please excuse any grammatical, word or spelling errors. Time with Patient: Less than 30
[2023-06-19 20:17] VITALS: BP 119/50; PULSE 67; TEMP 98.8
[2023-06-19] MEDS: ATORVASTATIN 40 MG TAB PO SCH (21:03)
--- NOTE | 2023-06-25 07:59 | CDI ---
Documentation Clarification Form Date: From: Amada Askew Phone: Admit Date: 06/14/2023 06:36:00 PM Patient Name: Saravanan Sharma Visit Number: [id number] Discharge Date: 06/19/2023 09:30:00 PM ATTENTION: The Clinical Documentation Specialists (CDI) and [facility] Coding Staff appreciate your assistance in clarifying documentation. Please respond to the clarification below the line at the bottom and electronically sign. The CDI & [facility] Coding staff will review the response and follow-up if needed. Please note: Queries are made part of the Legal Health Record. If you have any questions, please contact the author of this message via ITS. Dr. Blake Barber Your patient has the documented diagnosis of fluid overload. Additional information regarding the underlying etiology of the pts fluid overload is requested. History/Risk Factors: acute COPD exacerbation, acute respiratory failure Clinical Indicators: BNP: 06/18: 2640 Echocardiogram Results: EF 50-55% Chest X Ray: 06/18 CXR shows cardiomegaly w/o overt pulmonary vascular congestion and patchy airspace opacity which may be atelectasis vs infiltrate. 06/14 noted hyperinflation compatible with COPD, no evidence for infiltrate and no evidence for atelectasis. Impression was "no evidence for acute pulmonary disease". Treatment: Pulmonary consult showed patient on 2LNC with crackles, but is oxygenating at 100% and can be weaned from O2 supplementation. 06/19 harp maker note documented under 06/18 note, "maintaining O2 stats in the 90's on 2L per NC, bit short of breath with wheezing this morning, given Lasix 40mg IV." In your professional opinion, can you please clarify an underlying etiology of the pts fluid overload if known? [ ] Acute Systolic Heart Failure (reduced EF) [ xxxx ] Acute Diastolic Heart Failure (preserved EF) [ ] Acute Systolic & Diastolic Heart Failure [ ] Other, please specify [ ] Unable to determine (Template Last Revised: December 2020) MTDD
--- NOTE | 2023-06-25 09:44 | CDI ---
Documentation Clarification Form Date: From: Amada Askew Phone: Admit Date: 06/14/2023 06:36:00 PM Patient Name: Saravanan Sharma Visit Number: [id number] Discharge Date: 06/19/2023 09:30:00 PM ATTENTION: The Clinical Documentation Specialists (CDI) and [facility] Coding Staff appreciate your assistance in clarifying documentation. Please respond to the clarification below the line at the bottom and electronically sign. The CDI & [facility] Coding staff will review the response and follow-up if needed. Please note: Queries are made part of the Legal Health Record. If you have any questions, please contact the author of this message via ITS. Dr. Blake Barber Myocardial infarction (KS) is documented in cardiology PN 06/16 as "elevated troponin a possible non ST elevated KS cannot be ruled out although echocardiogram is showing normal function". Additional clarification regarding the KS is requested. History/Risk Factors: No discharge summary noted. Final PN notes "elevated troponins cardiology service is consulted. 2D echo ordered." Cardiology consult 06/15 documents "elevated troponin of unclear significance". Cardiology PN 06/16 as "elevated troponin a possible non ST elevated KS cannot be ruled out although echocardiogram is showing normal function". Beginning 06/17, cardiology note reiterates consult "mildly elevated troponin". Troponin: 06/14 Troponin I 0.041 and 0.066 Treatment: cardiology consult called and noted elevated troponin Please clarify the KS, if known: [ xxxx ] Elevated troponin, KS ruled out [ ] NSTEMI (type 1) [ ] Type II KS due to (please specify etiology) [ ] Unable to determine [ ] Other Condition, please specify (Template Last Revised: December 2020) MTDD
== END 2023-06-19 21:30 | DRG 981 ==
LOC: EC 12:33 → 3SCARD 18:36 → 2SICU 06-16 17:16
PROVIDERS: ADMIT Internal Medicine; ATTEND Internal Medicine
PROC: 0Y370ZZ Control Bleeding in Right Femoral Region, Open Approach (ICD-10-PCS; principal; 2023-06-16 18:30)
PROC: 30233N1 Transfusion of Nonautologous Red Blood Cells into Peripheral Vein, Percutaneous Approach (ICD-10-PCS; 2023-06-17)
DX: A04.72 Enterocolitis due to Clostridium difficile, not specified as recurrent (principal); I50.31 Acute diastolic (congestive) heart failure; D62 Acute posthemorrhagic anemia; M96.841 Postprocedural hematoma of a musculoskeletal structure following other procedure; E87.1 Hypo-osmolality and hyponatremia; E78.5 Hyperlipidemia, unspecified; E86.0 Dehydration; I11.0 Hypertensive heart disease with heart failure; R77.8 Other specified abnormalities of plasma proteins; I25.10 Atherosclerotic heart disease of native coronary artery without angina pectoris; I44.0 Atrioventricular block, first degree; J44.9 Chronic obstructive pulmonary disease, unspecified; K21.9 Gastro-esophageal reflux disease without esophagitis; R62.7 Adult failure to thrive; I73.9 Peripheral vascular disease, unspecified; Z79.02 Long term (current) use of antithrombotics/antiplatelets; Z79.82 Long term (current) use of aspirin; Z79.899 Other long term (current) drug therapy; Z82.49 Family history of ischemic heart disease and other diseases of the circulatory system; Z83.3 Family history of diabetes mellitus; Z86.718 Personal history of other venous thrombosis and embolism; Z95.5 Presence of coronary angioplasty implant and graft; Z68.32 Body mass index [BMI] 32.0-32.9, adult; Z87.891 Personal history of nicotine dependence; Z88.8 Allergy status to other drugs, medicaments and biological substances
CPT/HCPCS: 36415; 71045; 71046; 74018; 74174; 76700; 80048; 80053; 81001; 82550; 83690; 83735; 83880; 84132; 84145; 84484; 85025; 85027; 86850; 86900; 86901; 86920; 87040; 87086; 87324; 88108; 93005; 93306; 96361; 96374; 99285

== ENCOUNTER 2023-09-01 13:53 | Observation (INO) | payer MEDICARE, OTHER ==
--- NOTE | 2023-09-01 14:21 | ED ---
Lower Extremity Injury HPI - General Source: patient, RN notes reviewed Mode of arrival: ambulatory Limitations: no limitations <Gigi Sims - Last Filed: 09/01/23 14:20> <Junior Hernandez - Last Filed: 09/01/23 21:33> - General Chief Complaint: Extremity Injury, Lower Stated Complaint: fall Time Seen by Provider: 09/01/23 14:20 - History of Present Illness Initial Comments: 82-year-old male presents emergency Department chief complaint of right leg pain. Patient states he fell in a shower yesterday no head injury. Patient went to right knee and right hip pain. (Gigi Sims) 82-year-old male presenting to the ED with a chief complaint of fall. Patient states last night went to use the bathroom and fell onto his butt. Patient reports that he is unsure as to whether he slipped and fall or if he became dizzy causing him to fall onto his butt. Now notes pain of his right leg and buttock. Per son, normally uses a walker to ambulate around the house. Son reports that prior to patient falling he did not use his walker or any assistance and try to go to the bathroom on his own which she normally does not do. Patient denied chest pain or shortness of breath prior to the fall. Currently, patient only notes pain of the right leg. Denies any other symptoms at this time. There was no head injury at this time. (Junior Hernandez) - Related Data Home Medications Medication Instructions Recorded Confirmed Dorzolamide/Timolol/Pf [Cosopt Pf 1 drop BOTH EYES BID 03/18/17 09/01/23 2%/0.5% Ophth Droperette] Gabapentin [Neurontin] 300 mg PO TID 11/18/17 09/01/23 Simvastatin [Zocor] 40 mg PO DAILY 12/06/20 09/01/23 hydroCHLOROthiazide [Hydrodiuril] 12.5 mg PO DAILY 12/06/20 09/01/23 HYDROcodone/APAP 10-325MG [[place] 1 tab PO Q4H PRN 03/14/21 09/01/23 10-325] Aspirin EC [Ecotrin Low Dose] 81 mg PO DAILY 09/01/23 09/01/23 Clopidogrel Bisulfate [Plavix] 75 mg PO DAILY 09/01/23 09/01/23 Pantoprazole [Protonix] 40 mg PO DAILY 09/01/23 09/01/23 Allergies Allergy/AdvReac Type Severity Reaction Status Date / Time rivaroxaban [From Xarelto] AdvReac "internal Verified 09/01/23 19:42 bleeding" Review of Systems ROS Other: All systems not noted in ROS Statement are negative. <Gigi Sims - Last Filed: 09/01/23 14:20> ROS Other: All systems not noted in ROS Statement are negative. <Junior Hernandez - Last Filed: 09/01/23 21:33> ROS Statement: Those systems with pertinent positive or pertinent negative responses have been documented in the HPI. Past Medical History Past Medical History: Eye Disorder, Hyperlipidemia, Hypertension, Osteoarthritis (OA), Vascular Disorder Additional Past Medical History / Comment(s): Sciatica, PVD, GLAUCOMA, has had double vision a few times, no diagnosis. History of Any Multi-Drug Resistant Organisms: None Reported Past Surgical History: Heart Catheterization, Heart Catheterization With Stent Additional Past Surgical History / Comment(s): 3 stents in left leg, angioplasty bilateral legs, aortogram, bilateral cataracts, FEMPOP BYPASS LEFT LEG -FAILED, cysts removed from back and chest. Past Anesthesia/Blood Transfusion Reactions: No Reported Reaction Date of Last Stent Placement:: 2016 Past Psychological History: No Psychological Hx Reported Smoking Status: Former smoker Past Alcohol Use History: Rare Past Drug Use History: None Reported - Past Family History Mother Family Medical History: Diabetes Mellitus Father Family Medical History: Coronary Artery Disease (CAD), Rheumatoid Arthritis (RA) Additional Family Medical History / Comment(s): ARTERIAL SCLEROSIS <Gigi Sims - Last Filed: 09/01/23 14:20> General Exam Limitations: no limitations <Gigi Sims - Last Filed: 09/01/23 14:20> General appearance: alert, in no apparent distress Eye exam: Present: normal appearance, PERRL, EOMI ENT exam: Present: mucous membranes moist Neck exam: Present: normal inspection Respiratory exam: Present: normal lung sounds bilaterally Cardiovascular Exam: Present: regular rate, normal rhythm GI/Abdominal exam: Present: soft Extremities exam: Present: other (Treatment and sensation equal and symmetric in bilateral upper and lower x-rays.) <Junior Hernandez - Last Filed: 09/01/23 21:33> - General Exam Comments Initial Comments: Visual Physical Exam Vital signs reviewed General: Well-appearing, nontoxic, no acute distress. Head: Normocephalic, atraumatic Eyes: PERRLA, EOMI ENT: Airway patent Chest: Nonlabored breathing Skin: No visual rash, normal skin tone Neuro: Alert and oriented 3 Musculoskeletal: No gross abnormalities (Gigi Sims) Course Vital Signs 09/01/23 14:14 Temperature 98.1 F Pulse Rate 84 Respiratory 20 Rate Blood Pressure 150/86 O2 Sat by Pulse 99 Oximetry Medical Decision Making <Gigi Sims - Last Filed: 09/01/23 14:20> - Lab Data Result diagrams: 09/01/23 16:55 09/01/23 16:55 <Junior Hernandez - Last Filed: 09/01/23 21:33> - Medical Decision Making I completed the quick note portion of this chart signed Gigi Sims PA-C (Gigi Sims) Was pt. sent in by a medical professional or institution (DYLAN Langston, TRACK SUPERVISOR, urgent care, hospital, or usp...) When possible be specific @ -No Did you speak to anyone other than the patient for history (EMS, parent, family, police, friend...)? What history was obtained from this source @ -Spoke to the patient's son who noted that the patient normally ambulates with a walker. Did you review nursing and triage notes (agree or disagree)? Why? @ -I reviewed and agree with nursing and triage notes Were old charts reviewed (outside hosp., previous admission, EMS record, old EKG, old radiological studies, urgent care reports/EKG's, usp records)? Report findings @ -No old charts were reviewed Differential Diagnosis (chest pain, altered mental status, abdominal pain women, abdominal pain men, vaginal bleeding, weakness, fever, dyspnea, syncope, headache, dizziness, GI bleed, back pain, seizure, CVA, palpatations, mental he alth, musculoskeletal)? @ -Differential Dizziness: Benign paroxysmal positional Vertigo, Menieres disease, otitis media, acoustic neuroma, vertebrobasilar insufficiency, cerebellar stroke, encephalitis, hypovolemic, arrhythmia, coronary artery syndrome, anemia, this is not meant to be an all-inclusive list EKG interpreted by me (3pts min.). @ -As above X-rays interpreted by me (1pt min.). @ -X-ray of the pelvis and right knee interpreted by me showing no acute finding. CT interpreted by me (1pt min.). @ -CT brain interpreted by me shows no acute finding. U/S interpreted by me (1pt. min.). @ -None done What testing was considered but not performed or refused? (CT, X-rays, U/S, labs)? Why? @ -None What meds were considered but not given or refused? Why? @ -None Did you discuss the management of the patient with other professionals (professionals i.e. Dr., PA, TRACK SUPERVISOR, lab, RT, psych nurse, social media project manager, dredge master, teacher, earth science technical officer, insurance case manager)? Give summary @ -No Was smoking cessation discussed for >3mins.? @ -No Was critical care preformed (if so, how long)? @ -No Were there social determinants of health that impacted care today? How? (Homelessness, low income, unemployed, alcoholism, drug addiction, transportation, low edu. Level, literacy, decrease access to med. care, halfway, rehab)? @ -No Was there de-escalation of care discussed even if they declined (Discuss DNR or withdrawal of care, Hospice)? DNR status @ -No What co-morbidities impacted this encounter? (DM, HTN, Smoking, COPD, CAD, Cancer, CVA, ARF, Chemo, Hep., AIDS, mental health diagnosis, sleep apnea, morbid obesity)? @ -None Was patient admitted / discharged? Hospital course, mention meds given and route, prescriptions, significant lab abnormalities, going to OR and other pertinent info. @ -Discharge 82-year-old male presents to the ED with chief complaint of fall/near syncope. Imaging studies here reveal no acute finding. Laboratory studies largely unremarkable. Patient did have positive orthostatic vital signs. Therefore will be admitted to observation with consult to cardiology. Undiagnosed new problem with uncertain prognosis? @ -No Drug Therapy requiring intensive monitoring for toxicity (Heparin, Nitro, Insulin, Cardizem)? @ -No Were any procedures done? @ -No Diagnosis/symptom? @ -s/p fall, near syncope Acute, or Chronic, or Acute on Chronic? @ -Acute Uncomplicated (without systemic symptoms) or Complicated (systemic symptoms)? @ -Uncomplicated Side effects of treatment? @ -No Exacerbation, Progression, or Severe Exacerbation? @ -No Poses a threat to life or bodily function? How? (Chest pain, [place], [place], pneumonia, PE, COPD, DKA, ARF, appy, cholecystitis, CVA, Diverticulitis, Homicidal, Suicidal, threat to staff... and all critical care pts) @ -No (Junior Hernandez) - Lab Data Lab Results 09/01/23 09/01/23 09/01/23 Range/Units 16:55 16:55 16:55 WBC 5.4 (3.8-10.6) k/uL RBC 3.76 L (4.30-5.90) m/uL Hgb 9.7 L D (13.0-17.5) gm/dL Hct 31.6 L (39.0-53.0) % MCV 84.0 (80.0-100.0) fL MCH 25.8 (25.0-35.0) pg MCHC 30.8 L (31.0-37.0) g/dL RDW 16.7 H (11.5-15.5) % Plt Count 342 (150-450) k/uL MPV 8.4 Neutrophils % 68 % Lymphocytes % 15 % Monocytes % 6 % Eosinophils % 7 % Basophils % 0 % Neutrophils # 3.7 (1.3-7.7) k/uL Lymphocytes # 0.8 L (1.0-4.8) k/uL Monocytes # 0.3 (0-1.0) k/uL Eosinophils # 0.4 (0-0.7) k/uL Basophils # 0.0 (0-0.2) k/uL Hypochromasia Marked Poikilocytosis Slight Anisocytosis Slight PT 11.6 (10.0-12.5) sec INR 1.1 (<1.2) APTT 24.4 (22.0-30.0) sec Sodium 139 (137-145) mmol/L Potassium 4.7 (3.5-5.1) mmol/L Chloride 103 (98-107) mmol/L Carbon Dioxide 26 (22-30) mmol/L Anion Gap 10 mmol/L BUN 17 (9-20) mg/dL Creatinine 0.78 (0.66-1.25) mg/dL Est GFR (CKD-EPI)AfAm >90 (>60 ml/min/1.73 sqM) Est GFR (CKD-EPI)NonAf 84 (>60 ml/min/1.73 sqM) Glucose 126 H (74-99) mg/dL Calcium 9.5 (8.4-10.2) mg/dL Total Bilirubin 0.7 (0.2-1.3) mg/dL AST 31 (17-59) U/L ALT 17 (4-49) U/L Alkaline Phosphatase 98 (38-126) U/L Troponin I (0.000-0.034) ng/mL Total Protein 7.9 (6.3-8.2) g/dL Albumin 4.2 (3.5-5.0) g/dL 09/01/23 Range/Units 16:55 WBC (3.8-10.6) k/uL RBC (4.30-5.90) m/uL Hgb (13.0-17.5) gm/dL Hct (39.0-53.0) % MCV (80.0-100.0) fL MCH (25.0-35.0) pg MCHC (31.0-37.0) g/dL RDW (11.5-15.5) % Plt Count (150-450) k/uL MPV Neutrophils % % Lymphocytes % % Monocytes % % Eosinophils % % Basophils % % Neutrophils # (1.3-7.7) k/uL Lymphocytes # (1.0-4.8) k/uL Monocytes # (0-1.0) k/uL Eosinophils # (0-0.7) k/uL Basophils # (0-0.2) k/uL Hypochromasia Poikilocytosis Anisocytosis PT (10.0-12.5) sec INR (<1.2) APTT (22.0-30.0) sec Sodium (137-145) mmol/L Potassium (3.5-5.1) mmol/L Chloride (98-107) mmol/L Carbon Dioxide (22-30) mmol/L Anion Gap mmol/L BUN (9-20) mg/dL Creatinine (0.66-1.25) mg/dL Est GFR (CKD-EPI)AfAm (>60 ml/min/1.73 sqM) Est GFR (CKD-EPI)NonAf (>60 ml/min/1.73 sqM) Glucose (74-99) mg/dL Calcium (8.4-10.2) mg/dL Total Bilirubin (0.2-1.3) mg/dL AST (17-59) U/L ALT (4-49) U/L Alkaline Phosphatase (38-126) U/L Troponin I 0.018 (0.000-0.034) ng/mL Total Protein (6.3-8.2) g/dL Albumin (3.5-5.0) g/dL - EKG Data EKG Comments: EKG shows a sinus rhythm at 79 beats for minute. CO 209, QRS 89, QT/QTc 373/480. No acute ST-T wave changes. (Junior Hernandez) Disposition <Gigi Sims - Last Filed: 09/01/23 14:20> Time of Disposition: 19:07 <Junior Hernandez - Last Filed: 09/01/23 21:33> Clinical Impression: Near syncope, Fall Disposition: ADMITTED IP TO THIS [facility] Condition: Good
--- NOTE | 2023-09-01 15:54 | XR ---
EXAMINATION TYPE: XR Hip 2 views RT and AP Pelvis XR 3 views right knee DATE OF EXAM: 09/01/2023 COMPARISON: NONE HISTORY: 82-year-old male fall and pain FINDINGS: Pelvis and right hip: Generalized osteopenia. Mild degenerative change of both hips. Vascular stent left groin with surgica l clips. No displaced fractures are seen. Right knee: No knee joint effusion. Extensor mechanism is intact. Vascular calcifications. No acute fracture, sub luxation, or dislocation seen. Somewhat limited by on conventional positioning on the AP and oblique views. IMPRESSION: 1. Pelvis and right hip: Mild bilateral hip OA. No displaced fracture seen. Please ensure that the pa tient is able to bear weight as the exam is limited by the degree of osteopenia. 2. Right knee: Limited by unconventional positioning on the AP and oblique views. No joint effusion o r acute fracture identified.
[2023-09-01] MEDS ORDERED: SODIUM CHLORIDE 0.9% 1,000 ML IV STA (16:37)
[2023-09-01] MEDS ORDERED: HYDROcodone/APAP 10-325MG 1 EACH TAB PO ONE (16:44)
[2023-09-01] MEDS ORDERED: KETOROLAC 15 MG/ML 1 ML VIAL IVP STA (16:44)
[2023-09-01 17:38] LABS: Anisocytosis Slight; Basophils % (A) 0 %; Eosinophils # (A) 0.4 k/uL (0-0.7); Eosinophils % (A) 7 %; HCT 31.6 % (39.0-53.0); Hypochromasia Marked; Lymphocytes # (A) 0.8 k/uL (1.0-4.8); Lymphocytes % (A) 15 %; MCH 25.8 pg (25.0-35.0); MCHC 30.8 g/dL (31.0-37.0); Mean Platelet Volume 8.4; Monocytes # (A) 0.3 k/uL (0-1.0); Monocytes % (A) 6 %; Neutrophils # (A) 3.7 k/uL (1.3-7.7); Neutrophils % (A) 68 %; Platelet Count 342 k/uL (150-450); Poikilocytosis Slight; RBC 3.76 m/uL (4.30-5.90); RDW 16.7 % (11.5-15.5); WBC 5.4 k/uL (3.8-10.6)
[2023-09-01 17:42] LABS: HGB 9.7 gm/dL (13.0-17.5)
[2023-09-01 17:48] LABS: INR 1.1 (<1.2); Partial Thromboplastin Time 24.4 sec (22.0-30.0); Prothrombin Time 11.6 sec (10.0-12.5)
[2023-09-01 17:56] LABS: ALT 17 U/L (4-49); AST 31 U/L (17-59); African American GFR (CKD) >90 (>60 ml/min/1.73 sqM); Albumin 4.2 g/dL (3.5-5.0); Alkaline Phosphatase 98 U/L (38-126); Anion Gap 10 mmol/L; Blood Urea Nitrogen 17 mg/dL (9-20); Calcium 9.5 mg/dL (8.4-10.2); Carbon Dioxide 26 mmol/L (22-30); Chloride 103 mmol/L (98-107); Glucose 126 mg/dL (74-99); Non-African American GFR(CKD) 84 (>60 ml/min/1.73 sqM); Potassium 4.7 mmol/L (3.5-5.1); Sodium 139 mmol/L (137-145); Total Bilirubin 0.7 mg/dL (0.2-1.3); Total Protein 7.9 g/dL (6.3-8.2)
--- NOTE | 2023-09-01 18:03 | CT ---
EXAMINATION TYPE: CT brain wo con CT DLP: 1053 mGycm, Automated exposure control for dose reduction was used. DATE OF EXAM: 09/01/2023 5:56 PM COMPARISON: 09/22/2022. CLINICAL INDICATION:Male, 82 years old with history of s/p fall, dizziness, TECHNIQUE: Brain: Axial CT images of the brain were obtained with coronal and sagittal reformats created and rev iewed. Contrast used: None. Oral contrast used: None. FINDINGS: Brain: Extra-axial spaces: No abnormal extra-axial fluid collections. Ventricular system: Dilatation in proportion to cerebral atrophy. Cerebral parenchyma: Cerebral atrophy. No acute intraparenchymal hemorrhage or mass effect. The ta -white junction is well differentiated. Scattered hypoattenuating areas are seen within the white mat ter. Cerebellum: Unremarkable. Mass effect: No evidence of midline shift. Intracranial vasculature: Atherosclerotic calcifications of the intracranial vessels. Soft tissues: Normal. Calvarium/osseous structures: No depressed skull fracture. Paranasal sinuses and mastoid air cells: Mild scattered paranasal sinus disease. Visualized orbits: Bilateral aphakia IMPRESSION: 1. No acute intracranial process. 2. Nonspecific white matter changes, likely secondary to chronic small vessel ischemic disease.
[2023-09-01] MEDS ORDERED: ONDANSETRON 4 MG/2 ML VIAL IVP PRN (19:14)
[2023-09-01] MEDS ORDERED: MORPHINE SULFATE 4 MG/ML SYRINGE IV PRN (19:14)
[2023-09-01] MEDS ORDERED: KETOROLAC 15 MG/ML 1 ML VIAL IVP PRN (19:14)
[2023-09-01] MEDS ORDERED: ACETAMINOPHEN TAB 325 MG TAB PO PRN (19:14)
[2023-09-01] MEDS ORDERED: NALOXONE 0.4 MG/ML 1 ML VIAL IV PRN (19:14)
[2023-09-01] MEDS: SODIUM CHLORIDE 0.9% 1,000 ML IV SCH (20:56)
[2023-09-02] MEDS: SODIUM CHLORIDE 0.9% 1,000 ML IV SCH (10:05)
--- NOTE | 2023-09-02 10:11 | P.CRDCN ---
History of Present Illness Consult date: 09/02/23 History of present illness: History of present illness: This is an 82-year-old male with PMH of CAD, PAD, HTN, HLD, peripheral vascular disease status post femoral endarterectomy followed by groin exploration and hematoma evacuation open thrombectomy. Patient was last seen in the office with Dr. Thapa in 2016 and states he does not follow with a rat trapper. We have been asked to evaluate the patient for near syncope. Patient states that he was getting up going into the shower and not falling down landing on the floor without loss of consciousness. He denies any loss of bowel or bladder function. No chest pain or pressure, no shortness of breath, no palpitations. He denies any one-sided weakness. He has not had a recent cough or fever. No nausea or vomiting no wheezing. He denies any blood in his urine or stool. No recent CVA or seizure activity. He does have a history of smoking and quit 33 years ago. He denies any dyspnea on exertion. Patient is seen today in the emergency center waiting for a bed on the observation unit. EKG SINUS RHYTHM AT 79 BPM Right hip right knee x-rays did not reveal any fracture. CAT scan of the brain no acute intracranial process WBC 5.4, hemoglobin 9.7, platelet count 342. INR 1.1. Electrolytes and renal function were normal. Troponin negative 3. Glucose 126. Liver function tests are normal. Home cardiac medications: Aspirin 81 mg daily, Plavix 75 mg daily, hydrochlorothiazide 12.5 mg daily, simvastatin 40 mg daily. Cardiac cath in 07/2017: mild disease RCA, intermediate disease of the LCx and LAD. Ischeic FFR of LCX 0.78. Questionable ischemic FFR LAD. Stent of the mid LCX. Echocardiogram performed 06/15/2023 reveals normal LV function, mild mitral regurgitation. Lexiscan 04/2017: small anterior ischemia Review Of Systems: At the time of my evaluation: Constitutional: No fever, no chills. EENT: No headache. No dizziness. Lungs: No shortness of breath, cough, no sputum production. No wheezing. Cardiovascular: No chest pain, no lower extremity edema. No palpitations. No paroxysmal nocturnal dyspnea. No orthopnea. No lightheadedness or dizziness. No syncopal episodes. Abdominal: No abdominal pain. No nausea, No vomiting. No diarrhea. No constipation. No bloody or tarry stools. Musculoskeletal: No myalgias. No muscle weakness, no frequent falls. Integumentary: No wounds. No rash. Neurologic: No aphasia. No facial droop. No change in mentation. Physical examination: Gen: This is an 82-year-old male resting on the ER stretcher, no acute distress VS: reviewed. HEENT: Head is atraumatic, normocephalic. Pupils equal, round. Sclerae is anicteric. NECK: Supple. No JVD. LUNGS: Clear to auscultation. No wheezes or rhonchi. No intercostal retractions. HEART: Regular rate and rhythm. No murmur. ABDOMEN: Distended, generalized tenderness. EXTREMITIES: No pedal edema. NEUROLOGICAL: Patient is awake, alert and oriented x3. Assessment: Presyncopal episode History of CAD with stent of the mid LCx 2016 PAD History of critical limb ischemia HTN HLD Plan: Continue patient's current cardiac medications with the following change: Change statin to Lipitor 40 mg daily Obtain orthostatic vital signs Continue telemetry monitoring for arrhythmia No need to repeat echocardiogram as this was done in June. Further recommendations to follow based upon clinical course Thank you kindly for this consultation. Nurse practitioner note has been reviewed, I agree with documented findings and plan of care. Patient was seen and examined. Past Medical History Past Medical History: Eye Disorder, Hyperlipidemia, Hypertension, Osteoarthritis (OA), Vascular Disorder Additional Past Medical History / Comment(s): Sciatica, PVD, GLAUCOMA, has had double vision a few times, no diagnosis. History of Any Multi-Drug Resistant Organisms: None Reported Past Surgical History: Heart Catheterization, Heart Catheterization With Stent Additional Past Surgical History / Comment(s): 3 stents in left leg, angioplasty bilateral legs, aortogram, bilateral cataracts, FEMPOP BYPASS LEFT LEG -FAILED, cysts removed from back and chest. Past Anesthesia/Blood Transfusion Reactions: No Reported Reaction Date of Last Stent Placement:: 2016 Past Psychological History: No Psychological Hx Reported Smoking Status: Former smoker Past Alcohol Use History: Rare Past Drug Use History: None Reported - Past Family History Mother Family Medical History: Diabetes Mellitus Father Family Medical History: Coronary Artery Disease (CAD), Rheumatoid Arthritis (RA) Additional Family Medical History / Comment(s): ARTERIAL SCLEROSIS Medications and Allergies Home Medications Medication Instructions Recorded Confirmed Type Dorzolamide/Timolol/Pf [Cosopt Pf 1 drop BOTH EYES BID 03/18/17 09/01/23 History 2%/0.5% Ophth Droperette] Gabapentin [Neurontin] 300 mg PO TID 11/18/17 09/01/23 History Simvastatin [Zocor] 40 mg PO DAILY 12/06/20 09/01/23 History hydroCHLOROthiazide [Hydrodiuril] 12.5 mg PO DAILY 12/06/20 09/01/23 History HYDROcodone/APAP 10-325MG [[place] 1 tab PO Q4H PRN 03/14/21 09/01/23 History 10-325] Aspirin EC [Ecotrin Low Dose] 81 mg PO DAILY 09/01/23 09/01/23 History Clopidogrel Bisulfate [Plavix] 75 mg PO DAILY 09/01/23 09/01/23 History Pantoprazole [Protonix] 40 mg PO DAILY 09/01/23 09/01/23 History Allergies Allergy/AdvReac Type Severity Reaction Status Date / Time rivaroxaban [From Xarelto] AdvReac "internal Verified 09/01/23 19:42 bleeding" Physical Exam Vitals: Vital Signs Temp Pulse Resp BP Pulse Ox 09/02/23 04:00 71 16 131/57 97 09/02/23 00:00 70 16 130/47 09/01/23 22:49 78 18 128/59 98 09/01/23 14:14 98.1 F 84 20 150/86 99 Results 09/01/23 16:55 09/01/23 16:55 Cardiac Enzymes 09/01/23 09/01/23 09/01/23 Range/Units 16:55 16:55 20:39 AST 31 (17-59) U/L Troponin I 0.018 0.020 (0.000-0.034) ng/mL 09/02/23 Range/Units 02:00 AST (17-59) U/L Troponin I 0.026 (0.000-0.034) ng/mL Coagulation 09/01/23 Range/Units 16:55 PT 11.6 (10.0-12.5) sec APTT 24.4 (22.0-30.0) sec CBC 09/01/23 Range/Units 16:55 WBC 5.4 (3.8-10.6) k/uL RBC 3.76 L (4.30-5.90) m/uL Hgb 9.7 L D (13.0-17.5) gm/dL Hct 31.6 L (39.0-53.0) % Plt Count 342 (150-450) k/uL Comprehensive Metabolic Panel 09/01/23 Range/Units 16:55 Sodium 139 (137-145) mmol/L Potassium 4.7 (3.5-5.1) mmol/L Chloride 103 (98-107) mmol/L Carbon Dioxide 26 (22-30) mmol/L BUN 17 (9-20) mg/dL Creatinine 0.78 (0.66-1.25) mg/dL Glucose 126 H (74-99) mg/dL Calcium 9.5 (8.4-10.2) mg/dL AST 31 (17-59) U/L ALT 17 (4-49) U/L Alkaline Phosphatase 98 (38-126) U/L Total Protein 7.9 (6.3-8.2) g/dL Albumin 4.2 (3.5-5.0) g/dL Current Medications Generic Name Dose Route Start Last Admin Trade Name Freq PRN Reason Stop Dose Admin Acetaminophen 650 mg 09/01/23 19:14 Acetaminophen Tab 325 Mg Tab PO Q6HR PRN Mild Pain or Fever > 100.5 Sodium Chloride 1,000 mls @ 75 mls/hr 09/01/23 19:15 09/01/23 20:56 Saline 0.9% IV 75 mls/hr .[id number] YVETTE Administration Ketorolac Tromethamine 15 mg 09/01/23 19:14 Ketorolac 15 Mg/Ml 1 Ml Vial IVP 09/04/23 19:15 Q6HR PRN Moderate Pain (Scale 4 to 6) Morphine Sulfate 4 mg 09/01/23 19:14 Morphine Sulfate 4 Mg/Ml Syringe IV Q4HR PRN Severe Pain (Scale 7 to 10) Naloxone HCl 0.2 mg 09/01/23 19:14 Naloxone 0.4 Mg/Ml 1 Ml Vial IV Q2M PRN Opioid Reversal Ondansetron HCl 4 mg 09/01/23 19:14 Ondansetron 4 Mg/2 Ml Vial IVP Q8HR PRN Nausea And Vomiting 09/01/23 16:55 09/01/23 16:55
[2023-09-02] MEDS: ASPIRIN 81 MG PO SCH (11:29)
[2023-09-02] MEDS: hydroCHLOROthiazide 12.5 MG CAP PO SCH (11:30)
[2023-09-02] MEDS: CLOPIDOGREL 75 MG TAB PO SCH (11:31)
--- NOTE | 2023-09-02 11:43 | US ---
EXAMINATION TYPE: US carotid duplex BILAT DATE OF EXAM: 09/02/2023 COMPARISON: 12/12/2018 CLINICAL INDICATION: Male, 82 years old with history of presyncope; presyncope TECHNIQUE: Carotid duplex ultrasound examination. Indirect Doppler criteria was utilized. FINDINGS: EXAM MEASUREMENTS: RIGHT: Peak Systolic Velocity (PSV) cm/sec ----- Right CCA: 225.5 ----- Right ICA: 197.6 ----- Right ECA: 340.2 ICA/CCA ratio: 0.9 RIGHT: End Diastole cm/sec ----- Right CCA: 19.2 ----- Right ICA: 44.3 ----- Right ECA: 0.0 LEFT: Peak Systolic Velocity (PSV) cm/sec ----- Left CCA: 106.0 ----- Left ICA: 267.0 ----- Left ECA: 285.8 ICA/CCA ratio: 2.5 LEFT: End Diastole cm/sec ----- Left CCA: 9.0 ----- Left ICA: 27.8 ----- Left ECA: 0.0 VERTEBRALS (direction of flow): Right Vertebral: Antegrade Left Vertebral: Antegrade Rhythm: Arrhythmia MEDICAL SOCIAL WORKER NOTES: significant atherosclerotic plaque and elevated velocities seen bilaterally IMPRESSION: Significant atherosclerotic plaque and elevated velocities seen bilaterally . Greater than 70% stenos is at the origin left internal carotid artery secondary to calcified plaque based on peak systolic ve locity. Approximately 50-69% stenosis at the origin the right internal carotid artery secondary to ca lcified plaque based on peak systolic velocity. Consider further evaluation with CTA neck. Criteria for Assigning % of Stenosis / Diameter reduction (Estimation based on the indirect measurements of the internal carotid artery velocities (ICA PSV). 1. Normal (no stenosis)=ICA PSV < 125 cm/s: ratio < 2.0: ICA EDV<40 cm/s. 2. Less than 50% stenosis=ICA PSV < 125 cm/s: ratio < 2.0: ICA EDV<40 cm/s. 3. 50 to 69% stenosis=ICA PSV of 125 to 230 cm/s: ration 2.0 ? 4.0: ICA EDV 40-100 cm/s. 4. Greater than 70% stenosis to near occlusion= ICA PSV > 230 cm/s: ratio > 4.0: ICA EDV > 100 cm/s. 5. Near occlusion= ICA PSV velocities may be low or undetectable: variable ratio and ICA EDV. 6. Total occlusion=unable to detect flow.
[2023-09-02] MEDS ORDERED: HYDROcodone/APAP 10-325MG 1 EACH TAB PO PRN (14:30)
[2023-09-02 14:44] LABS: Color,Urine Yellow
[2023-09-02 14:45] LABS: Appearance,Urine Clear (Clear); Bilirubin,Urine Negative (Negative); Blood,Urine Negative (Negative); Glucose,Urine (UA) Negative (Negative); Ketones,Urine Negative (Negative); Leukocyte Esterase,Urine Negative (Negative); Nitrite,Urine Negative (Negative); PH, Urine 6.5 (5.0-8.0); Protein,Urine 1+ (Negative); Specific Gravity,Urine 1.025 (1.001-1.035); Urobilinogen,Urine <2.0 mg/dL (<2.0)
[2023-09-02 14:52] LABS: Mucus,Urine Moderate /hpf; RBC,Urine 2 /hpf (0-5); Squamous Epithelial Cell,Urine <1 /hpf (0-4); WBC,Urine 3 /hpf (0-5)
--- NOTE | 2023-09-02 16:08 | P.HPIM ---
History of Present Illness H&P Date: 09/02/23 Saravanan Sharma, is an 82 year old male who presented to [facility] emergency room with a chief complaint of fall at home, with concern for presyncope, and evidence of orthostatic hypotension in the emergency room. He was evaluated in the emergency room vital examination on presentation revealed a temperature of 98.1 pulse 84 respiration 20 blood pressure 150/86 pulse ox 99% on room air Laboratory data reveals a white blood count of 5.4 hemoglobin 9.7 platelet count 342 BUN 17 creatinine 0.78 troponin level 0.018 Testing in the emergency room revealed EKG revealed sinus rhythm with first- degree AV block, computed tomography scan of the brain revealed no acute intracranial process, x-ray of the pelvis right hip and right knee revealed no evidence for acute fracture. Patient was admitted to medical floor for further evaluation and treatment Past Medical History Past Medical History: Eye Disorder, Hyperlipidemia, Hypertension, Osteoarthritis (OA), Vascular Disorder Additional Past Medical History / Comment(s): Sciatica, PVD, GLAUCOMA, has had double vision a few times, no diagnosis. History of Any Multi-Drug Resistant Organisms: None Reported Past Surgical History: Heart Catheterization, Heart Catheterization With Stent Additional Past Surgical History / Comment(s): 3 stents in left leg, angioplasty bilateral legs, aortogram, bilateral cataracts, FEMPOP BYPASS LEFT LEG -FAILED, cysts removed from back and chest. Past Anesthesia/Blood Transfusion Reactions: No Reported Reaction Date of Last Stent Placement:: 2016 Past Psychological History: No Psychological Hx Reported Smoking Status: Former smoker Past Alcohol Use History: Rare Past Drug Use History: None Reported - Past Family History Mother Family Medical History: Diabetes Mellitus Father Family Medical History: Coronary Artery Disease (CAD), Rheumatoid Arthritis (RA) Additional Family Medical History / Comment(s): ARTERIAL SCLEROSIS Medications and Allergies Home Medications Medication Instructions Recorded Confirmed Type Dorzolamide/Timolol/Pf [Cosopt Pf 1 drop BOTH EYES BID 03/18/17 09/01/23 History 2%/0.5% Ophth Droperette] Gabapentin [Neurontin] 300 mg PO TID 11/18/17 09/01/23 History Simvastatin [Zocor] 40 mg PO DAILY 12/06/20 09/01/23 History hydroCHLOROthiazide [Hydrodiuril] 12.5 mg PO DAILY 12/06/20 09/01/23 History HYDROcodone/APAP 10-325MG [[place] 1 tab PO Q4H PRN 03/14/21 09/01/23 History 10-325] Aspirin EC [Ecotrin Low Dose] 81 mg PO DAILY 09/01/23 09/01/23 History Clopidogrel Bisulfate [Plavix] 75 mg PO DAILY 09/01/23 09/01/23 History Pantoprazole [Protonix] 40 mg PO DAILY 09/01/23 09/01/23 History Allergies Allergy/AdvReac Type Severity Reaction Status Date / Time rivaroxaban [From Xarelto] AdvReac "internal Verified 09/01/23 19:42 bleeding" Physical Exam Vitals: Vital Signs Temp Pulse Resp BP Pulse Ox 09/02/23 04:00 71 16 131/57 97 09/02/23 00:00 70 16 130/47 09/01/23 22:49 78 18 128/59 98 09/01/23 14:14 98.1 F 84 20 150/86 99 In general patient is alert and oriented x 3 in no distress HEENT head normocephalic and atraumatic Neck is supple no JVD no goiter no lymphadenopathy no carotid bruit Chest examination is clear to auscultation no crackles no wheezing Cardiac exam reveals regular heart sounds S1 and S2 no gallops no murmurs Abdomen is soft nontender no organomegaly with normal bowel sounds Extremity exam reveals no edema no cyanosis or clubbing Neurological examination reveals no gross focal deficits Results CBC & Chem 7: 09/01/23 16:55 09/01/23 16:55 Labs: Abnormal Lab Results - Last 24 Hours (Table) 09/01/23 09/01/23 Range/Units 16:55 16:55 RBC 3.76 L (4.30-5.90) m/uL Hgb 9.7 L D (13.0-17.5) gm/dL Hct 31.6 L (39.0-53.0) % MCHC 30.8 L (31.0-37.0) g/dL RDW 16.7 H (11.5-15.5) % Lymphocytes # 0.8 L (1.0-4.8) k/uL Glucose 126 H (74-99) mg/dL Assessment and Plan Plan: Presyncope with fall Orthostatic hypotension Underlying history of coronary artery disease with history of angioplasty and stent placement in 2017 Underlying history of peripheral arterial disease Underlying history of hypertension Underlying history of hyperlipidemia At this time patient will be admitted to telemetry All medications reviewed the Cardiology consultation requested Echocardiogram done in June review Will check carotid Doppler Will follow closely
[2023-09-02] MEDS: GABAPENTIN 300 MG CAP PO SCH ×2 (17:55→23:08)
[2023-09-02] MEDS ORDERED: ATORVASTATIN 40 MG TAB PO SCH (21:00)
[2023-09-02] MEDS: DORZOLAMIDE-TIMOLOL 2.23%/0.68 10ML BTL BOTH EYES SCH (23:08)
[2023-09-03] MEDS: SODIUM CHLORIDE 0.9% 1,000 ML IV SCH (00:30)
[2023-09-03 07:40] LABS: Anisocytosis Slight; Basophils % (A) 1 %; Eosinophils # (A) 0.5 k/uL (0-0.7); Eosinophils % (A) 10 %; HCT 30.1 % (39.0-53.0); HGB 9.3 gm/dL (13.0-17.5); Hypochromasia Marked; Lymphocytes # (A) 0.7 k/uL (1.0-4.8); Lymphocytes % (A) 15 %; MCH 26.2 pg (25.0-35.0); MCV 84.3 fL (80.0-100.0); Mean Platelet Volume 7.7; Monocytes # (A) 0.3 k/uL (0-1.0); Monocytes % (A) 7 %; Neutrophils # (A) 2.9 k/uL (1.3-7.7); Neutrophils % (A) 64 %; Platelet Count 314 k/uL (150-450); RBC 3.57 m/uL (4.30-5.90); RDW 17.1 % (11.5-15.5); WBC 4.6 k/uL (3.8-10.6)
[2023-09-03 08:04] VITALS: RESP 18
[2023-09-03 08:04] LABS: ALT 16 U/L (4-49); AST 29 U/L (17-59); African American GFR (CKD) >90 (>60 ml/min/1.73 sqM); Albumin 3.6 g/dL (3.5-5.0); Albumin/Globulin Ratio 1.1; Alkaline Phosphatase 100 U/L (38-126); Anion Gap 7 mmol/L; Blood Urea Nitrogen 15 mg/dL (9-20); Calcium 8.8 mg/dL (8.4-10.2); Carbon Dioxide 25 mmol/L (22-30); Chloride 109 mmol/L (98-107); Globulin 3.2 g/dL; Glucose 96 mg/dL (74-99); Non-African American GFR(CKD) 81 (>60 ml/min/1.73 sqM); Potassium 3.9 mmol/L (3.5-5.1); Sodium 141 mmol/L (137-145); Total Bilirubin 0.6 mg/dL (0.2-1.3); Total Protein 6.8 g/dL (6.3-8.2)
[2023-09-03] MEDS ORDERED: ENOXAPARIN 40 MG/0.4 ML SYRINGE SQ SCH (09:00)
[2023-09-03] MEDS ORDERED: NON FORMULARY DRUG (Simvastatin [Zocor] 40 MG Tablet) PO SCH (09:00)
[2023-09-03] MEDS ORDERED: PANTOPRAZOLE 40 MG TABLET PO SCH (09:00)
--- NOTE | 2023-09-03 10:03 | CT ---
EXAMINATION TYPE: CT angio head neck DATE OF EXAM: 09/03/2023 HISTORY: COMPARISON: CT DLP: mGycm. Automated Exposure Control for Dose Reduction was Utilized. TECHNIQUE: CTA scan of the neck is performed , patient injected with mL of , axial images are obtain ed, coronal and sagittal reformatted images are reviewed. Three-D reconstructed images are created on an independent workstation and reviewed. Source images are reviewed. FINDINGS: Carotid/Vascular Structures: There is a 3 vessel arch. Common carotid arteries bifurcate into internal and external carotid arteries. There is a calculated 43% narrowing of the right internal carotid artery origin. There is a calculated 55% narrowing of the proximal left internal carotid artery. On visual inspection this appears greater. Correlate with the patient's symptoms. Vertebral arteries are codominant. Internal carotid arteries and vertebral arteries are patent to the skull base. Cervical of [place]: Vertebral basilar system appears normal. Posterior cerebral vasculature is unrema rkable. Internal carotid arteries bifurcate normally into A1 and M1 segments. Left A1 segment is slig htly hypoplastic. A2 segments are normal. The anterior communicating artery is patent. The right posterior communicating artery is absent. The left posterior communicating artery is absent. IMPRESSION: 1. Moderate narrowing, 55% narrowing proximal left internal carotid artery. Milder narrowing of less than 50% is within normal right internal carotid artery origin. 2. Normal [place] NASCET criteria was used in interpretation of this exam?
[2023-09-03] MEDS: hydroCHLOROthiazide 12.5 MG CAP PO SCH (10:05)
[2023-09-03] MEDS: DORZOLAMIDE-TIMOLOL 2.23%/0.68 10ML BTL BOTH EYES SCH (10:05)
[2023-09-03] MEDS: ASPIRIN 81 MG PO SCH (10:05)
[2023-09-03] MEDS: CLOPIDOGREL 75 MG TAB PO SCH (10:05)
--- NOTE | 2023-09-03 12:02 | P.CONS ---
History of Present Illness - Reason for Consult Consult date: 09/03/23 wound care - History of Present Illness This is an 82-year-old gentleman being seen on for a nonhealing ulceration to the right groin. Patient states that the ulceration has been there since May after a lymph node biopsy. He was recently at [facility] where they've been utilizing collagen silver to the site. Patient states that is again sufficiently better with the collagen silver and requesting that he stays with the same treatment plan. Ulceration measures approximately 1.5 x 4 x 0.3 cm with fat layer exposure, ulceration shows granulation throughout the wound bed with minimal Slough and nonviable tissue. There is an area of tunneling noted to the proximal portion of the ulceration no undermining. Review Of Systems: Constitutional: No fever, no chills, no night sweats. No weight change. No weakness, fatigue or lethargy. No daytime sleepiness. Integumentary:reports wounds, no lesions. No rash or pruritus. No unusual bruising. No change in hair or nails. Physical exam: General Appearance: Alert, cooperative, no distress, appears stated age. Skin: See HPI all other Skin color, texture, tugor normal, no rashes or lesions. Neurologic: Alert oriented x3 Assessment: 1. Nonhealing ulceration with fatty layer exposure right groin Plan: 1.Apply collagen silver, saline moisten gauze, dry gauze and border foam. Change Thursday. Patient is reluctant to come to the wound care center. We will be happy to see him upon discharge if he chooses to. Thank you for the consultation any questions to contact the wound care center DNP note has been reviewed and discussed with Dr. Medina and the impression and plan of care has been directed as dictated. Past Medical History Past Medical History: Eye Disorder, Hyperlipidemia, Hypertension, Osteoarthritis (OA), Vascular Disorder Additional Past Medical History / Comment(s): Sciatica, PVD, GLAUCOMA, has had double vision a few times, no diagnosis. History of Any Multi-Drug Resistant Organisms: MRSA Year Discovered:: 08/24/23 MDRO Source:: Groin Past Surgical History: Heart Catheterization, Heart Catheterization With Stent Additional Past Surgical History / Comment(s): 3 stents in left leg, angioplasty bilateral legs, aortogram, bilateral cataracts, FEMPOP BYPASS LEFT LEG -FAILED, cysts removed from back and chest. Past Anesthesia/Blood Transfusion Reactions: No Reported Reaction Date of Last Stent Placement:: 2016 Past Psychological History: No Psychological Hx Reported Additional Psychological History / Comment(s): PT HAS JOSE ANTONIO ALMEIDA, Smoking Status: Former smoker Past Alcohol Use History: Rare Additional Past Alcohol Use History / Comment(s): SMOKED FROM 1955 TO 1988, 1-2 PPD. Past Drug Use History: None Reported - Past Family History Mother Family Medical History: Diabetes Mellitus Father Family Medical History: Coronary Artery Disease (CAD), Rheumatoid Arthritis (RA) Additional Family Medical History / Comment(s): ARTERIAL SCLEROSIS Medications and Allergies Home Medications Medication Instructions Recorded Confirmed Type Dorzolamide/Timolol/Pf [Cosopt Pf 1 drop BOTH EYES BID 03/18/17 09/01/23 History 2%/0.5% Ophth Droperette] Gabapentin [Neurontin] 300 mg PO TID 11/18/17 09/01/23 History Simvastatin [Zocor] 40 mg PO DAILY 12/06/20 09/01/23 History hydroCHLOROthiazide [Hydrodiuril] 12.5 mg PO DAILY 12/06/20 09/01/23 History HYDROcodone/APAP 10-325MG [[place] 1 tab PO Q4H PRN 03/14/21 09/01/23 History 10-325] Aspirin EC [Ecotrin Low Dose] 81 mg PO DAILY 09/01/23 09/01/23 History Clopidogrel Bisulfate [Plavix] 75 mg PO DAILY 09/01/23 09/01/23 History Pantoprazole [Protonix] 40 mg PO DAILY 09/01/23 09/01/23 History Allergies Allergy/AdvReac Type Severity Reaction Status Date / Time rivaroxaban [From Xarelto] AdvReac "internal Verified 09/01/23 19:42 bleeding" Physical Exam Vitals: Vital Signs Temp Pulse Pulse Pulse Pulse Pulse Resp 09/03/23 07:00 97.4 F L 71 71 67 18 09/03/23 02:47 98.1 F 69 17 09/03/23 02:00 69 09/02/23 20:15 97.7 F 76 86 82 15 09/02/23 20:00 85 09/02/23 19:27 68 18 09/02/23 15:00 98.1 F 74 85 17 09/02/23 13:00 78 18 BP BP BP BP Pulse Ox 09/03/23 07:00 128/38 132/67 190/66 100 09/03/23 02:47 124/49 100 09/03/23 02:00 09/02/23 20:15 146/64 151/68 156/82 93 L 09/02/23 20:00 09/02/23 19:27 124/78 99 09/02/23 15:00 148/86 157/69 97 09/02/23 13:00 123/78 99 Intake and Output 09/02/23 09/03/23 09/03/23 22:59 06:59 14:59 Other: Voiding Method Toilet Urinal # Voids 2 Weight 68.039 kg Results CBC & Chem 7: 09/03/23 07:05 09/03/23 07:05 Labs: Abnormal Lab Results - Last 24 Hours (Table) 09/02/23 09/03/23 09/03/23 Range/Units 13:29 07:05 07:05 RBC 3.57 L (4.30-5.90) m/uL Hgb 9.3 L (13.0-17.5) gm/dL Hct 30.1 L (39.0-53.0) % RDW 17.1 H (11.5-15.5) % Lymphocytes # 0.7 L (1.0-4.8) k/uL Chloride 109 H (98-107) mmol/L Urine Protein 1+ H (Negative) Urine Mucus Moderate H (None) /hpf Assessment and Plan (1) 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
[2023-09-03] MEDS: GABAPENTIN 300 MG CAP PO SCH (12:14)
--- NOTE | 2023-09-03 12:46 | P.PN ---
Subjective Progress Note Date: 09/03/23 History of present illness: This is an 82-year-old male with PMH of CAD, PAD, HTN, HLD, peripheral vascular disease status post femoral endarterectomy followed by groin exploration and hematoma evacuation open thrombectomy. Patient was last seen in the office with Dr. Thapa in 2016 and states he does not follow with a international account manager. We have been asked to evaluate the patient for near syncope. Patient states that he was getting up going into the shower and not falling down landing on the floor without loss of consciousness. He denies any loss of bowel or bladder function. No chest pain or pressure, no shortness of breath, no palpitations. He denies any one-sided weakness. He has not had a recent cough or fever. No nausea or vomiting no wheezing. He denies any blood in his urine or stool. No recent CVA or seizure activity. He does have a history of smoking and quit 33 years ago. He denies any dyspnea on exertion. Patient is seen today in the emergency center waiting for a bed on the observation unit. EKG SINUS RHYTHM AT 79 BPM Right hip right knee x-rays did not reveal any fracture. CAT scan of the brain no acute intracranial process WBC 5.4, hemoglobin 9.7, platelet count 342. INR 1.1. Electrolytes and renal function were normal. Troponin negative 3. Glucose 126. Liver function tests are normal. Home cardiac medications: Aspirin 81 mg daily, Plavix 75 mg daily, hydroc hlorothiazide 12.5 mg daily, simvastatin 40 mg daily. Cardiac cath in 07/2017: mild disease RCA, intermediate disease of the LCx and LAD. Ischeic FFR of LCX 0.78. Questionable ischemic FFR LAD. Stent of the mid LCX. Echocardiogram performed 06/15/2023 reveals normal LV function, mild mitral regurgitation. Lexiscan 04/2017: small anterior ischemia 09/03 Patient is seen in follow-up on the observation unit. Telemetry has been a sinus rhythm without arrhythmias. Orthostatic vital signs this morning negative. Heart rate has been running in the 60s and 70s. Repeat blood work reveals hemoglobin of 9.3. Potassium 3.9, BUN 15 creatinine 0.83. Carotid ultrasound revealed greater than 70% stenosis and left internal carotid artery and 50-69% on the right internal carotid artery. Patient is scheduled for CTA. Physical examination: Gen: This is an 82-year-old male resting in bed, no acute distress VS: reviewed. HEENT: Head is atraumatic, normocephalic. Pupils equal, round. Sclerae is anicteric. NECK: Supple. No JVD. LUNGS: Clear to auscultation. No wheezes or rhonchi. No intercostal re tractions. HEART: Regular rate and rhythm. No murmur. ABDOMEN: Distended, generalized tenderness. EXTREMITIES: No pedal edema. NEUROLOGICAL: Patient is awake, alert and oriented x3. Assessment: Presyncopal episode possibly due to carotid stenosis History of CAD with stent of the mid LCx 2016 PAD History of critical limb ischemia HTN HLD Plan: Continue patient's current cardiac medications with the following change: Change statin to Lipitor 40 mg daily Continue telemetry monitoring for arrhythmia No need to repeat echocardiogram as this was done in June. Cardiology will sign off this case and follow on an as-needed basis. Please reconsult for any new concerns. Patient may follow-up in the office with Dr. Brown in one to 2 weeks. Nurse practitioner note has been reviewed, I agree with documented findings and plan of care. Patient was seen and examined. Objective - Vital Signs Vital signs: Vital Signs Temp 97.4 F L 09/03/23 07:00 Pulse 67 09/03/23 07:00 Resp 18 09/03/23 07:00 BP 190/66 09/03/23 07:00 Pulse Ox 100 09/03/23 07:00 FiO2 Intake & Output 09/02/23 09/03/23 09/03/23 18:59 06:59 18:59 Weight 68.039 kg Other: Voiding Method Toilet Urinal # Voids 2 - Labs CBC & Chem 7: 09/03/23 07:05 09/03/23 07:05 Labs: Abnormal Lab Results - Last 24 Hours (Table) 09/02/23 09/03/23 09/03/23 Range/Units 13:29 07:05 07:05 RBC 3.57 L (4.30-5.90) m/uL Hgb 9.3 L (13.0-17.5) gm/dL Hct 30.1 L (39.0-53.0) % RDW 17.1 H (11.5-15.5) % Lymphocytes # 0.7 L (1.0-4.8) k/uL Chloride 109 H (98-107) mmol/L Urine Protein 1+ H (Negative) Urine Mucus Moderate H (None) /hpf
--- NOTE | 2023-09-03 12:49 | P.GSCN ---
History of Present Illness Consult date: 09/03/23 Reason for Consult: Carotid stenosis Requesting physician: Blake Barber History of present illness: This is a 82-year-old male known to vascular surgical services with a history of right lower extremity ischemia status post bypass, followed by hematoma evacuation and follows with Dr. David. He has multiple medical comorbidities including hyperlipidemia, hypertension, osteoarthritis, glaucoma, coronary artery disease status post stent and peripheral arterial disease. Apparently patient was just discharged from [facility] 4 days ago on he went home and states two days ago that he had fallen in the bathroom, he fell on his butt. He is uninsured and cannot recall the events. He is unsure if he was dizzy or if he slipped or if his legs were weak. He denied any injury to his head, he was having some hip pain. His primary medical physician Dr. Barber ordered a carotid duplex which reported bilateral ICA stenosis. Vascular surgery was consulted for the above. Patient currently denies any focal deficits, states he had no focal deficits yesterday either such as weakness on one side or the other, no visual changes, no speech deficits, and no facial drooping. He currently denies any shortness of breath, chest pain, nausea, or vomiting. Review of Systems A 14 point review systems was completed all pertinent positives and negatives as stated in the HPI. Past Medical History Past Medical History: Eye Disorder, Hyperlipidemia, Hypertension, Osteoarthritis (OA), Vascular Disorder Additional Past Medical History / Comment(s): Sciatica, PVD, GLAUCOMA, has had double vision a few times, no diagnosis. History of Any Multi-Drug Resistant Organisms: MRSA Year Discovered:: 08/24/23 MDRO Source:: Groin Past Surgical History: Heart Catheterization, Heart Catheterization With Stent Additional Past Surgical History / Comment(s): 3 stents in left leg, angioplasty bilateral legs, aortogram, bilateral cataracts, FEMPOP BYPASS LEFT LEG -FAILED, cysts removed from back and chest. Past Anesthesia/Blood Transfusion Reactions: No Reported Reaction Date of Last Stent Placement:: 2016 Past Psychological History: No Psychological Hx Reported Additional Psychological History / Comment(s): PT HAS WALKER, SCOOTER, Smoking Status: Former smoker Past Alcohol Use History: Rare Additional Past Alcohol Use History / Comment(s): SMOKED FROM 1955 TO 1988, 1-2 PPD. Past Drug Use History: None Reported - Past Family History Mother Family Medical History: Diabetes Mellitus Father Family Medical History: Coronary Artery Disease (CAD), Rheumatoid Arthritis (RA) Additional Family Medical History / Comment(s): ARTERIAL SCLEROSIS Medications and Allergies Home Medications Medication Instructions Recorded Confirmed Type Dorzolamide/Timolol/Pf [Cosopt Pf 1 drop BOTH EYES BID 03/18/17 09/01/23 History 2%/0.5% Ophth Droperette] Gabapentin [Neurontin] 300 mg PO TID 11/18/17 09/01/23 History Simvastatin [Zocor] 40 mg PO DAILY 12/06/20 09/01/23 History hydroCHLOROthiazide [Hydrodiuril] 12.5 mg PO DAILY 12/06/20 09/01/23 History HYDROcodone/APAP 10-325MG [[place] 1 tab PO Q4H PRN 03/14/21 09/01/23 History 10-325] Aspirin EC [Ecotrin Low Dose] 81 mg PO DAILY 09/01/23 09/01/23 History Clopidogrel Bisulfate [Plavix] 75 mg PO DAILY 09/01/23 09/01/23 History Pantoprazole [Protonix] 40 mg PO DAILY 09/01/23 09/01/23 History Allergies Allergy/AdvReac Type Severity Reaction Status Date / Time rivaroxaban [From Xarelto] AdvReac "internal Verified 09/01/23 19:42 bleeding" Surgical - Exam Vital Signs Temp Pulse Resp BP Pulse Ox 98.1 F 84 20 150/86 99 09/01/23 14:14 09/01/23 14:14 09/01/23 14:14 09/01/23 14:14 09/01/23 14:14 General appearance: The patient is alert, oriented, appears in no acute distress. HET: Head is normocephalic and atraumatic. Pupils are equal and reactive. Neck: Supple. Heart: Regular. Lungs: Equal expansion, normal respiratory effort. Abdomen: Soft, nontender, nondistended. Extremities: Normal skin color and turgor. Right groin with surgical wound with minimal drainage no bowel odor. Bilateral lower extremities warm to the touch, sensorimotor intact. Neurological: No focal deficits. Strength and sensation are grossly intact. Results - Labs 09/03/23 07:05 09/03/23 07:05 Abnormal Lab Results - Last 24 Hours (Table) 09/02/23 09/03/23 09/03/23 Range/Units 13:29 07:05 07:05 RBC 3.57 L (4.30-5.90) m/uL Hgb 9.3 L (13.0-17.5) gm/dL Hct 30.1 L (39.0-53.0) % RDW 17.1 H (11.5-15.5) % Lymphocytes # 0.7 L (1.0-4.8) k/uL Chloride 109 H (98-107) mmol/L Urine Protein 1+ H (Negative) Urine Mucus Moderate H (None) /hpf Diabetes panel 09/03/23 Range/Units 07:05 Sodium 141 (137-145) mmol/L Potassium 3.9 (3.5-5.1) mmol/L Chloride 109 H (98-107) mmol/L Carbon Dioxide 25 (22-30) mmol/L BUN 15 (9-20) mg/dL Creatinine 0.83 (0.66-1.25) mg/dL Glucose 96 (74-99) mg/dL Calcium 8.8 (8.4-10.2) mg/dL AST 29 (17-59) U/L ALT 16 (4-49) U/L Alkaline Phosphatase 100 (38-126) U/L Total Protein 6.8 (6.3-8.2) g/dL Albumin 3.6 (3.5-5.0) g/dL Calcium panel 09/03/23 Range/Units 07:05 Calcium 8.8 (8.4-10.2) mg/dL Albumin 3.6 (3.5-5.0) g/dL Pituitary panel 09/03/23 Range/Units 07:05 Sodium 141 (137-145) mmol/L Potassium 3.9 (3.5-5.1) mmol/L Chloride 109 H (98-107) mmol/L Carbon Dioxide 25 (22-30) mmol/L BUN 15 (9-20) mg/dL Creatinine 0.83 (0.66-1.25) mg/dL Glucose 96 (74-99) mg/dL Calcium 8.8 (8.4-10.2) mg/dL Adrenal panel 09/03/23 Range/Units 07:05 Sodium 141 (137-145) mmol/L Potassium 3.9 (3.5-5.1) mmol/L Chloride 109 H (98-107) mmol/L Carbon Dioxide 25 (22-30) mmol/L BUN 15 (9-20) mg/dL Creatinine 0.83 (0.66-1.25) mg/dL Glucose 96 (74-99) mg/dL Calcium 8.8 (8.4-10.2) mg/dL Total Bilirubin 0.6 (0.2-1.3) mg/dL AST 29 (17-59) U/L ALT 16 (4-49) U/L Alkaline Phosphatase 100 (38-126) U/L Total Protein 6.8 (6.3-8.2) g/dL Albumin 3.6 (3.5-5.0) g/dL - Imaging Comments: brain CT brain CT reports no acute intracranial process Carotid duplex report significant arthrosclerotic plaque and elevated velocities seen bilaterally. Greater than 70% stenosis at the origin of left internal carotid artery secondary to calcified plaque based on peak systolic velocity. Approximately 50-69% stenosis at the origin of the right internal carotid artery secondary to calcified plaque based on peak systolic velocity. Consider further evaluation with CT neck. Right ICA PSV 197.6, ICA/CCA ratio 0.9 and left ICA PSV to 67, ICA/CCA ratio 2.5 CT angiogram head and neck reports moderate narrowing 55% mural thickening of the proximal left internal carotid artery. Bowels are narrowing of less than 50% within normal right internal carotid artery origin. Normal [place]. Assessment and Plan Assessment: 1. Bilateral internal carotid artery stenosis, left closer to 60% stenosis, ri ght 50% stenosis 2. Syncope and collapse 3. History of peripheral arterial disease status post right lower extremity bypass for critical limb ischemia 4. History of coronary artery disease status post stent 5. Hypertension 6. Hyperlipidemia Plan: 1. CT angiogram head and neck ordered and imaging reviewed 2. Continue aspirin 81 mg daily, atorvastatin 40 mg at at bedtime and Plavix 75 mg daily 3. Consult to wound care for right groin wound 4. There is no indication for any vascular surgical intervention at this time. Patient to follow-up with Dr. David as scheduled Thank you for this consultation, we will sign off at this time. The impression and plan of care has been dictated as directed. I performed a history and examination of this patient, discussed the same with the dictator. I agree with the dictator's note ,documented as a scribe. Any additional findings or plans will be noted.
--- NOTE | 2023-09-03 14:42 | P.DS ---
Providers Date of admission: 09/01/23 19:15 Expected date of discharge: 09/03/23 Attending physician: Blake Barber Consults: 09/01/23 19:14 Consult Physician Urgent Consulting Provider: [facility] Consult Reason/Comments: near syncope Do you want consulting provider notified?: Yes 09/02/23 16:04 Consult Physician Routine Consulting Provider: Grace Varner Consult Reason/Comments: Carotid stenosis Do you want consulting provider notified?: Yes Primary care physician: Blake Barber [facility] Course: Diagnosis on discharge: Presyncope with fall Orthostatic hypotension Underlying history of coronary artery disease with history of angioplasty and stent placement in 2017 Underlying history of peripheral arterial disease Underlying history of hypertension Underlying history of hyperlipidemia Hospital course: Saravanan Sharma, is an 82 year old male who presented to [facility] emergency room with a chief complaint of fall at home, with concern for presyncope, and evidence of orthostatic hypotension in the emergency room. He was evaluated in the emergency room vital examination on presentation revealed a temperature of 98.1 pulse 84 respiration 20 blood pressure 150/86 pulse ox 99% on room air Laboratory data reveals a white blood count of 5.4 hemoglobin 9.7 platelet count 342 BUN 17 creatinine 0.78 troponin level 0.018 Testing in the emergency room revealed EKG revealed sinus rhythm with first- degree AV block, computed tomography scan of the brain revealed no acute intracranial process, x-ray of the pelvis right hip and right knee revealed no evidence for acute fracture. Patient was admitted to medical floor for further evaluation and treatment On 09/03/2023 patient was seen and examined on the telemetry floor he is alert and oriented 3 in no apparent distress he is able to stand up and walk without difficulty he denies any dizziness at this time. Patient was evaluated by cardiology and vascular surgery and was cleared for discharge. Patient will be discharged to home today he will be followed in our office within one week for further evaluation and treatment. Patient Condition at Discharge: Good Plan - Discharge Summary Discharge Rx Participant: No New Discharge Prescriptions: Continue Dorzolamide/Timolol/Pf [Cosopt Pf 2%/0.5% Ophth Droperette] 1 drop BOTH EYES BID Gabapentin [Neurontin] 300 mg PO TID Simvastatin [Zocor] 40 mg PO DAILY hydroCHLOROthiazide [Hydrodiuril] 12.5 mg PO DAILY HYDROcodone/APAP 10-325MG [[place] 10-325] 1 tab PO Q4H PRN PRN Reason: Pain Pantoprazole [Protonix] 40 mg PO DAILY Clopidogrel Bisulfate [Plavix] 75 mg PO DAILY Aspirin EC [Ecotrin Low Dose] 81 mg PO DAILY Discharge Medication List Dorzolamide/Timolol/Pf [Cosopt Pf 2%/0.5% Ophth Droperette] 1 drop BOTH EYES BID 03/18/17 [History] Gabapentin [Neurontin] 300 mg PO TID 11/18/17 [History] Simvastatin [Zocor] 40 mg PO DAILY 12/06/20 [History] hydroCHLOROthiazide [Hydrodiuril] 12.5 mg PO DAILY 12/06/20 [History] HYDROcodone/APAP 10-325MG [Newton 10-325] 1 tab PO Q4H PRN 03/14/21 [History] Aspirin EC [Ecotrin Low Dose] 81 mg PO DAILY 09/01/23 [History] Clopidogrel Bisulfate [Plavix] 75 mg PO DAILY 09/01/23 [History] Pantoprazole [Protonix] 40 mg PO DAILY 09/01/23 [History] Follow up Appointment(s)/Referral(s): Nursing,[place] [NON-STAFF] - 1 Week Alexei Brown MD [STAFF PHYSICIAN] - 2 Weeks Blake Barber MD [Primary Care Provider] - 1-2 days
[2023-09-03 16:06] VITALS: BP 156/56; PULSE 66; TEMP 97.9
== END 2023-09-03 16:50 | disposition home health service (06) ==
LOC: EC 13:53 → 6NMEDSUR 19:15
PROVIDERS: ADMIT Internal Medicine; ATTEND Internal Medicine
DX: I95.1 Orthostatic hypotension (principal); I70.231 Atherosclerosis of native arteries of right leg with ulceration of thigh; L97.112 Non-pressure chronic ulcer of right thigh with fat layer exposed; I65.23 Occlusion and stenosis of bilateral carotid arteries; E78.5 Hyperlipidemia, unspecified; I10 Essential (primary) hypertension; I25.10 Atherosclerotic heart disease of native coronary artery without angina pectoris; Z95.5 Presence of coronary angioplasty implant and graft; Z95.820 Peripheral vascular angioplasty status with implants and grafts; Z87.891 Personal history of nicotine dependence; Z79.899 Other long term (current) drug therapy; Z79.82 Long term (current) use of aspirin; Z79.02 Long term (current) use of antithrombotics/antiplatelets
CPT/HCPCS: 96361 ×2; 96372; 96374; 99285; 36415; 93005; 80053 ×2; 84484 ×2; 85025 ×2; 85610; 85730; 81001; 73502; 73562; 93880; 70496; 70450; 70498; G0378 ×4; J1650; J1885; Q9967

== ENCOUNTER → 2023-10-08 | Outpatient (CLI) | payer MEDICARE ==
--- NOTE | 2023-10-09 09:24 | US ---
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 Not on thinners, no h/o DVT, right leg pain, left leg swelling. SIDE PERFORMED: Bilateral TECHNIQUE: The lower extremity deep venous system is examined utilizing real time linear array sonog lillie with graded compression, doppler sonography and color-flow sonography. VESSELS IMAGED: Common Femoral Vein Deep Femoral Vein Greater Saphenous Vein * Femoral Vein Popliteal Vein Small Saphenous Vein * Proximal Calf Veins (* superficial vessels) Collet Making Machine Operator notes: Patient unable to lay on bed, sitting on the side of bed, right leg had continuous cramping and patient could not hold still. Had to modify imaging due to difficult nature of scan Right Leg: Negative for DVT. Collet Making Machine Operator notes: Mild fluid at the incision within right thigh extends into groin, patient states r ecent infection he has been treated for. Left Leg: Negative for DVT IMPRESSION: 1. No evidence for DVT within the bilateral lower extremities imaged from the groin to the knee. 2. Some mild fluid along the patient's right thigh incision site, probably on a postoperative basis. The patient states recent treatment for infection.
== END | disposition home or self-care (01) ==
LOC: RADUSWWP 15:02
PROVIDERS: ATTEND Internal Medicine
DX: M79.662 Pain in left lower leg (principal); M79.661 Pain in right lower leg
CPT/HCPCS: 93970

== ENCOUNTER 2023-10-11 13:36 | Emergency (ER) | payer MEDICARE ==
--- NOTE | 2023-10-11 15:13 | ED ---
Extremity Problem HPI - General Source: patient, family, RN notes reviewed Mode of arrival: wheelchair Limitations: no limitations - History of Present Illness MD Complaint: extremity pain, extremity swelling <Candy Epstein - Last Filed: 10/11/23 18:59> <Braulio Bruce - Last Filed: 10/11/23 23:54> - General Chief complaint: Extremity Problem,Nontraumatic Stated complaint: legs swelling can't walk Time Seen by Provider: 10/11/23 14:49 - History of Present Illness Initial comments: This is an 83-year-old male who presents to the emergency department for lower extremity problems. Reports left lower extremity swelling and right lower extremity pain. The left lower extremity swelling has been present for several years, however he is concerned that it may be getting worse. His largest concern is related to the right lower extremity. Reports ongoing pain for the last couple of months. However, his son states that the pain got so bad this morning that he was unable to walk, which concerned him. He does take [place] 10 mg 3-4 times daily, which is somewhat helpful. He followed up with his PCP, Dr. Barber, who ordered an ultrasound of both legs. He had this done 3 days ago, and no evidence of a DVT was identified. Patient is on blood thinners. 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 David. States that he has had pain ever since. Pain is the most prominent in his toes, and he feels like they're cold. (Candy Epstein) - Related Data Home Medications Medication Instructions Recorded Confirmed Dorzolamide/Timolol/Pf [Cosopt Pf 1 drop BOTH EYES BID 03/18/17 10/11/23 2%/0.5% Ophth Droperette] Simvastatin [Zocor] 40 mg PO DAILY 12/06/20 10/11/23 hydroCHLOROthiazide [Hydrodiuril] 12.5 mg PO DAILY 12/06/20 10/11/23 HYDROcodone/APAP 10-325MG [[place] 1 tab PO Q4H PRN 03/14/21 10/11/23 10-325] Aspirin EC [Ecotrin Low Dose] 81 mg PO DAILY 09/01/23 10/11/23 Clopidogrel Bisulfate [Plavix] 75 mg PO DAILY 09/01/23 10/11/23 Pantoprazole [Protonix] 40 mg PO DAILY 09/01/23 10/11/23 Previous Rx's Medication Instructions Recorded Gabapentin 300 mg PO TID 3 Days #9 cap 10/11/23 methocarbamoL [Robaxin-750] 1,500 mg PO TID PRN #20 tab 10/11/23 Allergies Allergy/AdvReac Type Severity Reaction Status Date / Time rivaroxaban [From Xarelto] AdvReac "internal Verified 10/11/23 20:49 bleeding" Review of Systems ROS Other: All systems not noted in ROS Statement are negative. <Candy Epstein - Last Filed: 10/11/23 18:59> ROS Other: All systems not noted in ROS Statement are negative. <Braulio Bruce - Last Filed: 10/11/23 23:54> ROS Statement: Those systems with pertinent positive or pertinent negative responses have been documented in the HPI. Past Medical History Past Medical History: Eye Disorder, Hyperlipidemia, Hypertension, Osteoarthritis (OA), Vascular Disorder Additional Past Medical History / Comment(s): Sciatica, PVD, GLAUCOMA, has had double vision a few times, no diagnosis. History of Any Multi-Drug Resistant Organisms: MRSA Date of last positivie culture/infection: 08/24/23 MDRO Source:: Groin Past Surgical History: Heart Catheterization, Heart Catheterization With Stent Additional Past Surgical History / Comment(s): 3 stents in left leg, angioplasty bilateral legs, aortogram, bilateral cataracts, FEMPOP BYPASS LEFT LEG -FAILED, cysts removed from back and chest. Past Anesthesia/Blood Transfusion Reactions: No Reported Reaction Date of Last Stent Placement:: 2016 Past Psychological History: No Psychological Hx Reported Smoking Status: Former smoker Past Alcohol Use History: Rare Past Drug Use History: None Reported - Past Family History Mother Family Medical History: Diabetes Mellitus Father Family Medical History: Coronary Artery Disease (CAD), Rheumatoid Arthritis (RA) Additional Family Medical History / Comment(s): ARTERIAL SCLEROSIS <Candy Epstein - Last Filed: 10/11/23 18:59> General Exam Limitations: no limitations General appearance: alert, in no apparent distress Head exam: Present: atraumatic, normocephalic, normal inspection Respiratory exam: Present: normal lung sounds bilaterally. Absent: respiratory distress, wheezes, rales, rhonchi, stridor Cardiovascular Exam: Present: regular rate, normal rhythm, normal heart sounds. Absent: systolic murmur, diastolic murmur, rubs, gallop, clicks Extremities exam: Present: other (2-3+ pitting edema to the left lower extremity with no overlying tenderness, erythema, or warmth. Tenderness to palpation of the right lower extremity with erythema and cooler temperature of the toes. 2+ pitting edema.) Neurological exam: Present: alert, oriented X3, CN II-XII intact Psychiatric exam: Present: normal affect, normal mood <Candy Epstein - Last Filed: 10/11/23 18:59> Course Vital Signs 10/11/23 10/11/23 10/11/23 14:21 18:00 20:00 Temperature 97.5 F L Pulse Rate 78 74 93 Respiratory 20 18 18 Rate Blood Pressure 149/59 158/64 126/89 O2 Sat by Pulse 99 100 96 Oximetry 10/11/23 21:45 Temperature 98.0 F Pulse Rate 73 Respiratory 18 Rate Blood Pressure 121/68 O2 Sat by Pulse 96 Oximetry Medical Decision Making - Lab Data Result diagrams: 10/11/23 16:20 10/11/23 15:21 - Radiology Data Radiology results: report reviewed, image reviewed <Candy Epstein - Last Filed: 10/11/23 18:59> - Lab Data Result diagrams: 10/11/23 16:20 10/11/23 15:21 <Braulio Bruce - Last Filed: 10/11/23 23:54> - Medical Decision Making This is an 83-year-old male who presents to the emergency department for bilateral lower extremity problems. Was pt. sent in by a medical professional or institution? @ -No Did you speak to anyone other than the patient for history? @ -His son provided the majority of the history. Did you review nursing and triage notes? @ -Yes, and I agree, it is accurate with regards to the patient's symptoms. Were old charts reviewed? @ -Duplex US of the bilateral LE from 10/08/23 demonstrating no evidence of a DVT. He was found to have some fluid along the right thigh incision site, thought to be postoperative. Differential Diagnosis? @ -Differential Leg Pain: Leg fracture, leg sprain, DVT, PVD, arterial insufficiency, iliac artery aneurysm, cellulitis, compartment syndrome, tendinopathy, nerve entrapment, piriformis syndrome, osteoarthritis, rhabdomyolysis, myositis, cramping from an electrolyte imbalance, this is not meant to be an all inclusive list. EKG interpreted by me (3pts min.)? @ -Not obtained X-rays interpreted by me (1pt min.)? @ -Not obtained CT interpreted by me (1pt min.)? @ -Pending at case sign out U/S interpreted by me (1pt. min.)? @ -Not obtained What testing was considered but not performed? (CT, X-rays, U/S, labs)? Why? @ -None What meds were considered but not given? Why? @ -None Did you discuss the management of the patient with other professionals? @ -No Did you reconcile home meds? @ -No Was smoking cessation discussed for >3mins.? @ -No Was critical care preformed (if so, how long)? @ -No Were there social determinants of health that impacted care today? How? (Homelessness, low income, unemployed, alcoholism, drug addiction, transportation, low edu. Level, literacy, decrease access to med. care, half-way, rehab)? @ -No Was there de-escalation of care discussed even if they declined? (Discuss DNR or withdrawal of care, Hospice)? @ -No What co-morbidities impacted this encounter? (DM, HTN, Smoking, COPD, CAD, Cancer, CVA, Hep., AIDS, mental health diagnosis, sleep apnea, morbid obesity)? @ -Osteoarthritis, vascular disorder Was patient admitted / discharged? @ -Lab work obtained revealing mild hyperkalemia with a potassium of 5.4 and a mildly elevated lactic acid of 2.4. His right toes were colder than the rest of his extremity on exam and I was unable to palpate pulses. Given these findings and his history of right lower extremity ischemia, CT angiogram of the right lower extremity was obtained. Case signed out to ED attending, Dr. Bruce, pending CTA results. Undiagnosed new problem with uncertain prognosis? @ -None Drug Therapy requiring intensive monitoring for toxicity (Heparin, Nitro, Insulin, Cardizem)? @ -None Were any procedures done? @ -None (Candy Epstein) Patient signed out to me pending results of CT angiogram imaging. Briefly, patient has a significant history for peripheral vascular disease with history of bypass in the right lower extremity. Presenting with primary concern of right foot pain and some right leg weakness that occurred earlier today. Is on [place] 10 chronically at home. With his history, presents for further evaluation at this time. Pulse up with Dr. Ancelmo donaldson. Patient's workup relatively unremarkable. CT results pending. CT angiogram as interpreted by myselft revealed the chronic peripheral vascular disease and bilateral lower extremities. Right lower extremity does have what appears to be occlusion of the bypass graft as well as distal collaterals this patient is having small amount of blood flow distally to the foot. Collaterals all through small muscular branches. I discussed this with the patient, states that the appearance of his foot is unchanged. He still having sensation and motor function of the leg and foot. However presents due to the episode of increased pain earlier today as well as weakness. Currently is at his baseline following analgesic medications. I did speak with the on-call vascular surgeon, Dr. Guzman we discussed the case, including the occluded bypass graft as well as the collateral flow located distally from small muscle branches. Discussed imaging findings. As patient is sensory intact and motor intact, with no acute skin changes. Patient, he does not believe patient requires admission at this time but does recommend outpatient follow-up with Dr. David tomorrow. Recommended he call first thing in the morning. Return if worsening symptoms. Discussed this with the patient and he was in agreement this plan as he is pain- free at this time and is feeling back to his baseline. He will follow up with Dr. David tomorrow and call first thing in the morning. Diagnosis/symptom? @ -Peripheral vascular disease, right leg pain, chronic leg edema Acute, or Chronic, or Acute on Chronic? @ -Acute on chronic Uncomplicated (without systemic symptoms) or Complicated (systemic symptoms)? @ -Complicated Side effects of treatment? @ -none Exacerbation, Progression, or Severe Exacerbation] @ -no Poses a threat to life or bodily function? @ -If not addressed, possibly yes (Braulio Bruce) - Lab Data Lab Results 10/11/23 10/11/23 10/11/23 Range/Units 15:21 15:21 16:12 WBC (3.8-10.6) k/uL RBC (4.30-5.90) m/uL Hgb (13.0-17.5) gm/dL Hct (39.0-53.0) % MCV (80.0-100.0) fL MCH (25.0-35.0) pg MCHC (31.0-37.0) g/dL RDW (11.5-15.5) % Plt Count (150-450) k/uL MPV Neutrophils % % Lymphocytes % % Monocytes % % Eosinophils % % Basophils % % Neutrophils # (1.3-7.7) k/uL Lymphocytes # (1.0-4.8) k/uL Monocytes # (0-1.0) k/uL Eosinophils # (0-0.7) k/uL Basophils # (0-0.2) k/uL Hypochromasia Anisocytosis Sodium 142 (137-145) mmol/L Potassium 5.4 H (3.5-5.1) mmol/L Chloride 106 (98-107) mmol/L Carbon Dioxide 20 L (22-30) mmol/L Anion Gap 16 mmol/L BUN 16 (9-20) mg/dL Creatinine 0.87 (0.66-1.25) mg/dL Est GFR (CKD-EPI)AfAm >90 (>60 ml/min/1.73 sqM) Est GFR (CKD-EPI)NonAf 79 (>60 ml/min/1.73 sqM) Glucose 114 H (74-99) mg/dL Lactic Ac Sepsis Rflx Y Plasma Lactic Acid Mike 2.4 H* (0.7-2.0) mmol/L Calcium 9.9 (8.4-10.2) mg/dL Total Bilirubin 0.6 (0.2-1.3) mg/dL AST 27 (17-59) U/L ALT 18 (4-49) U/L Alkaline Phosphatase 90 (38-126) U/L C-Reactive Protein 0.6 (<1.0) mg/dL NT-Pro-B Natriuret Pep 186 pg/mL Total Protein 7.9 (6.3-8.2) g/dL Albumin 4.6 (3.5-5.0) g/dL 10/11/23 10/11/23 Range/Units 16:20 21:24 WBC 5.7 (3.8-10.6) k/uL RBC 4.15 L (4.30-5.90) m/uL Hgb 11.4 L (13.0-17.5) gm/dL Hct 35.8 L (39.0-53.0) % MCV 86.2 (80.0-100.0) fL MCH 27.5 (25.0-35.0) pg MCHC 32.0 (31.0-37.0) g/dL RDW 19.5 H (11.5-15.5) % Plt Count 332 (150-450) k/uL MPV 7.3 Neutrophils % 64 % Lymphocytes % 15 % Monocytes % 8 % Eosinophils % 9 % Basophils % 1 % Neutrophils # 3.7 (1.3-7.7) k/uL Lymphocytes # 0.8 L (1.0-4.8) k/uL Monocytes # 0.4 (0-1.0) k/uL Eosinophils # 0.5 (0-0.7) k/uL Basophils # 0.1 (0-0.2) k/uL Hypochromasia Moderate Anisocytosis Slight Sodium (137-145) mmol/L Potassium (3.5-5.1) mmol/L Chloride (98-107) mmol/L Carbon Dioxide (22-30) mmol/L Anion Gap mmol/L BUN (9-20) mg/dL Creatinine (0.66-1.25) mg/dL Est GFR (CKD-EPI)AfAm (>60 ml/min/1.73 sqM) Est GFR (CKD-EPI)NonAf (>60 ml/min/1.73 sqM) Glucose (74-99) mg/dL Lactic Ac Sepsis Rflx Plasma Lactic Acid Mike 0.9 (0.7-2.0) mmol/L Calcium (8.4-10.2) mg/dL Total Bilirubin (0.2-1.3) mg/dL AST (17-59) U/L ALT (4-49) U/L Alkaline Phosphatase (38-126) U/L C-Reactive Protein (<1.0) mg/dL NT-Pro-B Natriuret Pep pg/mL Total Protein (6.3-8.2) g/dL Albumin (3.5-5.0) g/dL Disposition Is patient prescribed a controlled substance at d/c from ED?: Yes When asked, does pt state using other controlled substances?: Yes If prescribed controlled substance>3 days was MAPS reviewed?: Prescribed <3 Days <Candy Epstein - Last Filed: 10/11/23 18:59> Time of Disposition: 21:28 <Braulio Bruce - Last Filed: 10/11/23 23:54> Clinical Impression: PAD (peripheral artery disease), Right leg pain, Swelling of left lower extremity, Occlusion of bypass graft Disposition: HOME SELF-CARE Condition: Fair Instructions (If sedation given, give patient instructions): Peripheral Artery Disease (ED) Prescriptions: Gabapentin 300 mg PO TID 3 Days #9 cap methocarbamoL [Robaxin-750] 1,500 mg PO TID PRN #20 tab PRN Reason: Pain Referrals: None,Stated [REFERRING] - 1-2 days Dejuan David DO [STAFF PHYSICIAN] - 1-2 days
[2023-10-11] MEDS ORDERED: MORPHINE SULFATE 4 MG/ML SYRINGE IM STA (15:37)
[2023-10-11 15:48] LABS: ALT 18 U/L (4-49); AST 27 U/L (17-59); African American GFR (CKD) >90 (>60 ml/min/1.73 sqM); Albumin 4.6 g/dL (3.5-5.0); Alkaline Phosphatase 90 U/L (38-126); Anion Gap 16 mmol/L; Blood Urea Nitrogen 16 mg/dL (9-20); Calcium 9.9 mg/dL (8.4-10.2); Carbon Dioxide 20 mmol/L (22-30); Chloride 106 mmol/L (98-107); Glucose 114 mg/dL (74-99); Non-African American GFR(CKD) 79 (>60 ml/min/1.73 sqM); Potassium 5.4 mmol/L (3.5-5.1); Sodium 142 mmol/L (137-145); Total Bilirubin 0.6 mg/dL (0.2-1.3); Total Protein 7.9 g/dL (6.3-8.2)
[2023-10-11 15:57] LABS: NT-Pro-B-Type Natriuretic Pept 186 pg/mL
[2023-10-11] MEDS ORDERED: RX INFO: IV CONTRAST WAS GIVEN 1 EACH MISC MISCELLANE PRN (16:12)
[2023-10-11 16:30] LABS: C Reactive Protein 0.6 mg/dL (<1.0)
[2023-10-11 16:36] LABS: Anisocytosis Slight; Basophils # (A) 0.1 k/uL (0-0.2); Basophils % (A) 1 %; Eosinophils # (A) 0.5 k/uL (0-0.7); Eosinophils % (A) 9 %; HCT 35.8 % (39.0-53.0); HGB 11.4 gm/dL (13.0-17.5); Hypochromasia Moderate; Lymphocytes # (A) 0.8 k/uL (1.0-4.8); Lymphocytes % (A) 15 %; MCH 27.5 pg (25.0-35.0); MCV 86.2 fL (80.0-100.0); Mean Platelet Volume 7.3; Monocytes # (A) 0.4 k/uL (0-1.0); Monocytes % (A) 8 %; Neutrophils # (A) 3.7 k/uL (1.3-7.7); Neutrophils % (A) 64 %; Platelet Count 332 k/uL (150-450); RBC 4.15 m/uL (4.30-5.90); RDW 19.5 % (11.5-15.5); WBC 5.7 k/uL (3.8-10.6)
[2023-10-11 18:43] VITALS: RESP 18
--- NOTE | 2023-10-11 20:38 | CT ---
EXAMINATION TYPE: CT angio lower extremity RT CT DLP: 1245.6 mGycm, Automated exposure control for dose reduction was used. DATE OF EXAM: 10/11/2023 5:13 PM COMPARISON: CT angiogram abdomen and pelvis 06/16/2023 CLINICAL INDICATION:Male, 83 years old with history of Right leg pain, cold toes; PHH, Left leg swoll en, right leg pain with cold toes. Unable to straighten right leg. TECHNIQUE: Axial images were obtained of the right lower extremity using CT angiogram protocol . Add itional coronal and sagittal reformatted images and soft tissue and bone window were obtained for rev iew. 3-D reconstruction was created on a separate workstation. Contrast used:70 cc mL of Isovue 370 with IV Contrast, Oral contrast used: None FINDINGS: CTA: Aorta is imaged beginning at the celiac artery. Celiac artery appears patent. There is moderate mixed soft and calcified plaque throughout the aorta without evidence of dissection flap or AAA. Moderate narrowing of the proximal SMA. Narrowing of the proximal renal arteries, mild on the right and modera te on the left. Bifurcation is patent. Right lower extremity: Moderate diffuse mixed soft and calcified plaque throughout the common iliac a rtery, external and internal iliac arteries. Mild narrowing of the distal external iliac lumen, there after patent for a few centimeters however at the expected proximal common femoral artery becomes occ luded and disappears, and an enhancing common femoral artery is not seen. This is at the level of the previous contrast extravasation, which is no longer seen. Decreased soft tissue density in the regio n likely represents residual scarring at the site of previous hematoma, and there is radiodensity in the area which may reflect calcification/postoperative changes/coil. From this area, there is reconst itution of flow seen of the inferior epigastric and profunda femoris arteries. Some small muscular br anches also reconstitute and flow laterally with branches enhancing to the upper to mid thigh but the n these essentially disappear into multiple tiny muscular branches. The superficial femoral artery ap pears to be occluded, with some calcifications and/or stents along its course. The profunda femoris e nhances to the upper to mid thigh, but then essentially disappears into multiple tiny muscular branch es above the knee. There had been an enhancing vessel coming off of the distal external iliac artery prior to its occlusion point and had coursed superficially in the anteromedial right thigh and had ap peared patent and enhancing to the distal extent of the prior study, which ended at the mid thigh. Ho wever this same vessel is no longer seen to be patent/enhancing, and is presumed occluded. Unfortunat sudeep this was likely the majority supply of blood to the right lower extremity beyond the thigh. The p opliteal artery at the knee appears to reconstitute, probably from small collateral muscular branches . Patent popliteal trifurcation, with an enhancing three-vessel runoff to the level of the ankle, how ever the vessels appear diminutive. There is soft tissue edema in both calves and extending distally to the imaged proximal right foot, a nd the distal left lower leg (which is only imaged to this point). No focal fluid collections or cont rast extravasation identified. No abrupt filling defects are seen to suggest acute thrombus. Left lower extremity: Visualized left common, external and internal iliac arteries show some moderate mostly calcified plaque throughout without high-grade stenosis identified. In the left inguinal karen on beginning at the common femoral bifurcation it appears that there are a chain of stents extending throughout the superficial femoral artery to the popliteal artery. The stent chain appears grossly pa tent. The popliteal artery appears diffusely diseased with mostly calcified plaques but patent. Profu nda femoris artery is patent proximally in the thigh but becomes nonvisualized by the knee. Popliteal trifurcation appears patent with 3 vessels in the calf appearing patent to the extent of the study, near the level of the distal left leg. Non--- CTA: Visualized inferior liver is unremarkable. Gallbladder appears contracted. Portal vein is enhancing. Heterogeneous striped spleen, likely from phase of contrast. There is a partially seen ovoid contrast enhancing nodule in the anterior spleen which was present before, likely benign such as hemangioma. No mass of the visualized adrenals. IVC is somewhat flattened in appearance, this can be seen with hy povolemia. Visualized stomach and small bowel show no evidence of obstruction. Mild to moderate stool throughout colon without a focal abnormality seen. Unremarkable appendix. No free fluid or free air is seen. Kidneys enhance symmetrically without evidence of hydronephrosis. Small low density nodule i n the right kidney similar to before, suggesting a cyst. Bladder is mostly empty and not well assesse d on the left shows a mildly thickened appearance to the wall. Prostate is mildly prominent measuring 3.5 cm transverse. Stable fatty lesion in the anterior aspect of the gluteus minimus on the right co mpatible with benign lipoma. Moderate degenerative disc disease and facet arthrosis in the lumbar spi ne with mild/moderate canal and neural foraminal stenoses at multiple levels. Degenerative changes of the SI joints with partial osseous fusion. Mild bilateral hip arthropathy. Mild osteoarthritis in th e knees. No evidence of an acute bony abnormality. IMPRESSION: 1. Moderate atherosclerotic disease again seen throughout the aorta and major branches, as discussed above. 2. Aorta, common iliac, and external iliac arteries appear patent without evidence of aneurysm or dis section. 3. Right lower extremity (details above): --Moderate diffuse mixed soft and calcified plaque throughout the common iliac artery, external and i nternal iliac arteries. Mild narrowing of the distal external iliac lumen, thereafter patent for a fe w centimeters however at the expected proximal common femoral artery becomes occluded and disappears, and an enhancing common femoral artery is not seen. This is at the level of the previous contrast ex travasation, which is no longer seen. Decreased soft tissue density in the region likely represents r esidual scarring at the site of previous hematoma, and there is radiodensity in the area which may re flect calcification/postoperative changes/coil. --From this area, there is reconstitution of flow seen of the inferior epigastric and profunda femori s arteries. Some small muscular branches also reconstitute and flow laterally with branches enhancing to the upper to mid thigh but then these essentially disappear into multiple tiny muscular branches. --The profunda femoris enhances to the upper to mid thigh, but then essentially disappears into multi ple tiny muscular branches above the knee. --The superficial femoral artery appears to be occluded. --There had been an enhancing vessel coming off of the distal external iliac artery prior to its occl usion point that had coursed superficially in the anteromedial right thigh and had appeared patent an d enhancing to the distal extent of the prior study, which ended at the mid thigh. However this same vessel is no longer seen to be patent/enhancing, and is presumed occluded. Unfortunately this was lik sudeep the majority supply of blood to the right lower extremity beyond the thigh. --Popliteal artery at the knee appears to reconstitute, probably from small collateral muscular branc hes. --Patent popliteal trifurcation, with an enhancing three-vessel runoff to the level of the ankle, how ever the vessels appear diminutive. 4. Left lower extremity (details above): Diffuse atherosclerotic disease, with eventually a patent th ree-vessel runoff in the calf to the extent of the study. 5. Soft tissue edema in both calves and extending distally to the extent of the study. 6. Other chronic and likely incidental findings as above.
[2023-10-11 21:57] VITALS: BP 121/68; PULSE 73; TEMP 98
== END 2023-10-11 21:53 | disposition home or self-care (01) ==
LOC: EC 13:36
DX: I73.9 Peripheral vascular disease, unspecified (principal); T82.898A Other specified complication of vascular prosthetic devices, implants and grafts, initial encounter; M79.604 Pain in right leg; E78.5 Hyperlipidemia, unspecified; I10 Essential (primary) hypertension; Z87.891 Personal history of nicotine dependence; Z79.899 Other long term (current) drug therapy; Z79.82 Long term (current) use of aspirin; Z88.8 Allergy status to other drugs, medicaments and biological substances
CPT/HCPCS: 36415; 83880; 80053; 83605; 85025; 86140; 73706; 99284; 96372; J2270; Q9967

== ENCOUNTER 2023-10-28 13:00 | Emergency (ER) | payer MEDICARE, OTHER ==
[2023-10-28 14:19] VITALS: RESP 18
--- NOTE | 2023-10-28 14:53 | ED ---
Extremity Problem HPI - General Chief complaint: Extremity Problem,Nontraumatic Stated complaint: Rt leg pain Time Seen by Provider: 10/28/23 14:52 Source: patient, family Mode of arrival: wheelchair Limitations: physical limitation - History of Present Illness Initial comments: 83-year-old male presented to the ED with a chief complaint of right foot pain. And states he has chronic pain of the right foot. This has been unchanged. Also notes chronic swelling of bilateral feet. Also notes that this has been unchanged. States no Symptoms prompting presentation to the ED. States he ran out of his methocarbamol and was informed by his PCPs office staff that his primary care is unable to prescribe this medication and was instructed present to the ED for evaluation. Patient states that he would just like a refill of this medication. No chest pain or shortness of breath. No other complaints. - Related Data Home Medications Medication Instructions Recorded Confirmed Dorzolamide/Timolol/Pf [Cosopt Pf 1 drop BOTH EYES BID 03/18/17 10/11/23 2%/0.5% Ophth Droperette] Simvastatin [Zocor] 40 mg PO DAILY 12/06/20 10/11/23 hydroCHLOROthiazide [Hydrodiuril] 12.5 mg PO DAILY 12/06/20 10/11/23 HYDROcodone/APAP 10-325MG [[place] 1 tab PO Q4H PRN 03/14/21 10/11/23 10-325] Aspirin EC [Ecotrin Low Dose] 81 mg PO DAILY 09/01/23 10/11/23 Clopidogrel Bisulfate [Plavix] 75 mg PO DAILY 09/01/23 10/11/23 Pantoprazole [Protonix] 40 mg PO DAILY 09/01/23 10/11/23 Previous Rx's Medication Instructions Recorded Gabapentin 300 mg PO TID 3 Days #9 cap 10/11/23 methocarbamoL [Robaxin-750] 1,500 mg PO TID PRN #20 tab 10/11/23 methocarbamoL 750 mg PO TID PRN #12 tablet 10/28/23 Allergies Allergy/AdvReac Type Severity Reaction Status Date / Time rivaroxaban [From Xarelto] AdvReac "internal Verified 10/28/23 13:58 bleeding" Review of Systems ROS Statement: Those systems with pertinent positive or pertinent negative responses have been documented in the HPI. ROS Other: All systems not noted in ROS Statement are negative. Past Medical History Past Medical History: Eye Disorder, Hyperlipidemia, Hypertension, Osteoarthritis (OA), Vascular Disorder Additional Past Medical History / Comment(s): Sciatica, PVD, GLAUCOMA, has had double vision a few times, no diagnosis. History of Any Multi-Drug Resistant Organisms: MRSA Date of last positivie culture/infection: 08/24/23 MDRO Source:: Groin Past Surgical History: Heart Catheterization, Heart Catheterization With Stent, Orthopedic Surgery Additional Past Surgical History / Comment(s): 3 stents in left leg, angioplasty bilateral legs, aortogram, bilateral cataracts, FEMPOP BYPASS LEFT LEG -FAILED, cysts removed from back and chest. Past Anesthesia/Blood Transfusion Reactions: No Reported Reaction Date of Last Stent Placement:: 2016 Past Psychological History: No Psychological Hx Reported Smoking Status: Former smoker Past Alcohol Use History: Rare Past Drug Use History: None Reported - Past Family History Mother Family Medical History: Diabetes Mellitus Father Family Medical History: Coronary Artery Disease (CAD), Rheumatoid Arthritis (RA) Additional Family Medical History / Comment(s): ARTERIAL SCLEROSIS General Exam Limitations: physical limitation General appearance: alert, in no apparent distress Neck exam: Present: normal inspection Respiratory exam: Present: normal lung sounds bilaterally Cardiovascular Exam: Present: regular rate, normal rhythm GI/Abdominal exam: Present: soft Extremities exam: Present: other (Strength and sensation equal and intact in bilateral lower extremities.) Neurological exam: Present: alert, oriented X3 Skin exam: Present: warm, dry Course Vital Signs 10/28/23 13:53 Temperature 97.9 F Pulse Rate 72 Respiratory 18 Rate Blood Pressure 142/68 O2 Sat by Pulse 100 Oximetry Medical Decision Making - Medical Decision Making Was pt. sent in by a medical professional or institution (, PA, OXYHYDROGEN WELDER, urgent care, hospital, or snf...) When possible be specific @ -No Did you speak to anyone other than the patient for history (EMS, parent, family, police, friend...)? What history was obtained from this source @ -No Did you review nursing and triage notes (agree or disagree)? Why? @ -I reviewed and agree with nursing and triage notes Were old charts reviewed (outside hosp., previous admission, EMS record, old EKG, old radiological studies, urgent care reports/EKG's, snf records)? Report findings @ -No old charts were reviewed Differential Diagnosis (chest pain, altered mental status, abdominal pain women, abdominal pain men, vaginal bleeding, weakness, fever, dyspnea, syncope, headache, dizziness, GI bleed, back pain, seizure, CVA, palpatations, mental health, musculoskeletal)? @ -Differential Musculoskeletal Muscular strain, contusion, ligament sprain, fracture, arthritis, septic arthritis, bursitis, cellulitis, muscle spasm, nerve compression, DVT, arterial occlusion, herpes zoster, electrolyte abnormality, tumor.... This is not meant to be in all inclusive list EKG interpreted by me (3pts min.). @ -As above X-rays interpreted by me (1pt min.). @ -None done CT interpreted by me (1pt min.). @ -None done U/S interpreted by me (1pt. min.). @ -None done What testing was considered but not performed or refused? (CT, X-rays, U/S, labs)? Why? @ -Imaging was considered however patient reports that his symptoms are chronic in nature and reports no new symptoms. What meds were considered but not given or refused? Why? @ -None Did you discuss the management of the patient with other professionals (professionals i.e. , PA, OXYHYDROGEN WELDER, lab, RT, psych nurse, social work case manager, male infertility specialist, teacher, customs officer, case hardener)? Give summary @ -No Was smoking cessation discussed for >3mins.? @ -No Was critical care preformed (if so, how long)? @ -No Were there social determinants of health that impacted care today? How? (Homelessness, low income, unemployed, alcoholism, drug addiction, transportation, low edu. Level, literacy, decrease access to med. care, [facility], r ehab)? @ -No Was there de-escalation of care discussed even if they declined (Discuss DNR or withdrawal of care, Hospice)? DNR status @ -No What co-morbidities impacted this encounter? (DM, HTN, Smoking, COPD, CAD, Cancer, CVA, ARF, Chemo, Hep., AIDS, mental health diagnosis, sleep apnea, morbid obesity)? @ -None Was patient admitted / discharged? Hospital course, mention meds given and route, prescriptions, significant lab abnormalities, going to OR and other pertinent info. @ -Discharge 83-year-old male presenting to the ED with chronic pain of the right foot and notes she would like to have a refill for his methocarbamol. Has no other complaints. Provided a short refill for methocarbamol. Advised follow-up with PCP. Provided referral to see pain management. Discussed return precautions with patient verbalizes agreement. Undiagnosed new problem with uncertain prognosis? @ -No Drug Therapy requiring intensive monitoring for toxicity (Heparin, Nitro, Insulin, Cardizem)? @ -No Were any procedures done? @ -No Diagnosis/symptom? @ -Medication refill, foot pain Acute, or Chronic, or Acute on Chronic? @ -Acute Uncomplicated (without systemic symptoms) or Complicated (systemic symptoms)? @ -Uncomplicated Side effects of treatment? @ -No Exacerbation, Progression, or Severe Exacerbation? @ -No Poses a threat to life or bodily function? How? (Chest pain, [place], [place], pneumonia, PE, COPD, DKA, ARF, appy, cholecystitis, CVA, Diverticulitis, Homicidal, Suicidal, threat to staff... and all critical care pts) @ -No Disposition Clinical Impression: Medication refill, Right foot pain Disposition: HOME SELF-CARE Condition: Good Additional Instructions: Please return to the Emergency Department if symptoms worsen or any other concerns. Please follow-up with your primary care provider and/or pain management. Prescriptions: methocarbamoL 750 mg PO TID PRN #12 tablet PRN Reason: Pain Is patient prescribed a controlled substance at d/c from ED?: No Referrals: Blake Barber MD [Primary Care Provider] - 1-2 days Kimberly Trotter MD [STAFF PHYSICIAN] - 1-2 days
[2023-10-28] MEDS ORDERED: methocarbamoL 750 MG TAB PO STA (14:57)
[2023-10-28 15:33] VITALS: BP 150/58; PULSE 69; TEMP 97.7
== END 2023-10-28 15:24 | disposition home or self-care (01) ==
LOC: EC 13:00
DX: Z76.0 Encounter for issue of repeat prescription (principal); M79.671 Pain in right foot; M19.90 Unspecified osteoarthritis, unspecified site; E78.5 Hyperlipidemia, unspecified; I10 Essential (primary) hypertension; Z87.891 Personal history of nicotine dependence; Z79.1 Long term (current) use of non-steroidal anti-inflammatories (NSAID); Z79.899 Other long term (current) drug therapy; Z79.82 Long term (current) use of aspirin; Z88.8 Allergy status to other drugs, medicaments and biological substances
CPT/HCPCS: 99283

== ENCOUNTER → 2023-11-06 | Day surgery (SDC) | payer MEDICARE, OTHER ==
[~2023-11-06] MED LIST changes: +ALPRAZolam 0.25 MG TAB PO PRN; +ASPIRIN 325 MG TAB PO PRN; -DEXAMETHASONE SOD PHOSPHATE 4 MG/ML 1 ML VIAL IV ONE; +HEPARIN SODIUM 1,000 UN/ML (10ML VL) ONE; +HEPARIN SODIUM,PORCINE (1 ML) 2,500 UNIT in SODIUM CHLORIDE 0.9% 250 ML IRRIGATION PRN; +HEPARIN SODIUM,PORCINE 10,000 UNIT in SODIUM CHLORIDE 0.9% 1,000 ML IRRIGATION PRN; +HYDROcodone/APAP 10-325MG 1 EACH TAB ONE; -HYDROmorphone 0.5 MG/0.5 ML SYRINGE IVP PRN; +IOPAMIDOL-370 100ML BTL INJ ONE; -LIDOCAINE 1% (10MG/ML) FOR IV START INTRADERMA PRN; +LIDOCAINE 1% INJ 10MG/ML (20 ML MDV) ONE; +LIDOCAINE 1% INJ 10MG/ML (20 ML MDV) SQ ONE; -METOCLOPRAMIDE 5 MG/ML 2 ML VIAL IVP PRN; -ONDANSETRON 4 MG/2 ML VIAL IVP ONE; +SODIUM CHLORIDE 0.9% 1,000 ML in EMPTY BAG 1 BAG IV ONE; +VERAPAMIL 2.5 MG/ML 2 ML AMP ONE; +VERAPAMIL SYRINGE (5 MG/10 ML) INTRAARTER ONE; +ZOLPIDEM 5 MG TAB PO PRN; +fentaNYL (PF) 50 MCG/ML 2 ML AMP ONE; +methocarbamoL 750 MG TAB PO STA
[2023-11-06 11:08] VITALS: PULSE 78; TEMP 98
[2023-11-06] MEDS: fentaNYL (PF) 50 MCG/1 ML VIAL IVP ONE ×2 (12:12→12:26)
[2023-11-06] MEDS: MIDAZOLAM 2 MG/2 ML VIAL IVP ONE ×2 (12:12→12:26)
--- NOTE | 2023-11-06 12:49 | IR ---
EXAMINATION TYPE: IR angio lower extremity RT DATE OF EXAM: 11/06/2023 CLINICAL HISTORY: Right flank pain. TECHNIQUE: Fluoroscopy. COMPARISON: Prior CTA October 11, 2023. FINDINGS: Fluoroscopic guidance was provided during right lower extremity angiogram procedure perfor med by Dr. David. A total of 3.9 minutes of fluoroscopic time was utilized during the procedure an d 95 spot images was acquired. Please refer to procedure note for further details. IMPRESSION: As Above. TOTAL DAP = 12.4 Gy x cm2.
--- NOTE | 2023-11-06 13:03 | P.OP ---
Date of Procedure: 11/06/23 Preoperative Diagnosis: Right lower extremity critical limb ischemia Right obturator bypass occlusion Postoperative Diagnosis: Same Procedure(s) Performed: Selective right lower extremity angiogram Ultrasound-guided left brachial artery access Anesthesia: local Surgeon: Dejuan David Pathology: none sent Condition: stable Disposition: PACU Indications for Procedure: 83-year-old gentleman with history of severe peripheral arterial disease, claudication with previous femoral endarterectomy and bypasses who ultimately had a pseudoaneurysm, bleeding from his groin and required further debridement ligation of his femoral artery and obturator bypass at that time due to infection. Since then he was doing well and recently is pain increased and he was sent for arterial Doppler which demonstrated significant decrease in his ABIs on that right lower extremity and therefore underwent CTA which demon strated occlusion, thrombosis of his obturator bypass. He presents today for possible intervention and angiogram to see if there is any area to bypass to or open his obturator bypass if possible. Operative Findings: Occlusion of the distal external iliac artery and common femoral artery with reconstitution of the profunda. Superficial femoral artery is completely occlud ed extending down to the knee where there was no re-constitution at the popliteal artery. No flow is noted distal to the knee in the tibial vessels. Description of Procedure: After written and informed consent was obtained the patient all risks, benefits and complications were described the patient is brought to the Functional Director and laid in the supine position. The area of the left arm was prepped and draped in usual sterile fashion. Timeout was performed in normal fashion. Utilizing ultrasound the brachial artery was located and shown to be patent without any significant disease or atherosclerosis. Under ultrasound guidance the brachial artery was accessed and utilizing Seldinger technique a 4/5 slender sheath was placed. 035 Glidewire was then placed and directed into the descending thoracic aorta followed by an angled glide catheter. The wire was then directed into the right common iliac artery followed by the angled glide catheter. Selective angiogram was then obtained down the right lower extremity with multiple angles demonstrating complete occlusion of the SFA and femoral artery with reconstitution to the profunda but no filling distal to the knee. All guidewires and catheters were then removed. The sheath was removed and pressure was placed for hemostasis. Hemostasis was obtained and patient was sent to PACU for recovery. He'll be discharged home after 2 hours and discussion will have to be had for possible amputation in the future. Plan - Discharge Summary Discharge Rx Participant: No New Discharge Prescriptions: No Action Dorzolamide/Timolol/Pf [Cosopt Pf 2%/0.5% Ophth Droperette] 1 drop BOTH EYES BID Simvastatin [Zocor] 40 mg PO DAILY hydroCHLOROthiazide [Hydrodiuril] 12.5 mg PO DAILY HYDROcodone/APAP 10-325MG [[place] 10-325] 1 tab PO Q4H PRN PRN Reason: Pain Clopidogrel Bisulfate [Plavix] 75 mg PO DAILY Aspirin EC [Ecotrin Low Dose] 81 mg PO DAILY Gabapentin 300 mg PO TID 3 Days #9 cap Ergocalciferol [Vitamin D2 (1250 Mcg = 57040 Iu)] 1,250 mcg PO DAILY methocarbamoL 750 mg PO TID PRN #12 tablet PRN Reason: Pain Ferrous Sulfate [Feosol] 325 mg PO DAILY Latanoprost [Latanoprost 0.005%] 1 drop BOTH EYES DAILY Discharge Medication List Dorzolamide/Timolol/Pf [Cosopt Pf 2%/0.5% Ophth Droperette] 1 drop BOTH EYES BID 03/18/17 [History] Simvastatin [Zocor] 40 mg PO DAILY 12/06/20 [History] hydroCHLOROthiazide [Hydrodiuril] 12.5 mg PO DAILY 12/06/20 [History] HYDROcodone/APAP 10-325MG [[place] 10-325] 1 tab PO Q4H PRN 03/14/21 [History] Aspirin EC [Ecotrin Low Dose] 81 mg PO DAILY 09/01/23 [History] Clopidogrel Bisulfate [Plavix] 75 mg PO DAILY 09/01/23 [History] Gabapentin 300 mg PO TID 3 Days #9 cap 10/11/23 [Rx] methocarbamoL 750 mg PO TID PRN #12 tablet 10/28/23 [Rx] Ergocalciferol [Vitamin D2 (1250 Mcg = 64660 Iu)] 1,250 mcg PO DAILY 11/03/23 [History] Ferrous Sulfate [Feosol] 325 mg PO DAILY 11/03/23 [History] Latanoprost [Latanoprost 0.005%] 1 drop BOTH EYES DAILY 11/03/23 [History] Follow up Appointment(s)/Referral(s): Dejuan David DO [STAFF PHYSICIAN] - 1 Week (OFFICE CLOSED ON FRIDAYS - PLEASE CALL TO MAKE YOUR APPOINTMENT) Patient Instructions/Handouts: Peripheral Vascular Disease (ED), Peripheral Artery Disease (ED), Moderate Sedation (DC) Activity/Diet/Wound Care/Special Instructions: *NO LIFTING, PUSHING, OR PULLING ANYTHING OVER 5 POUNDS FOR 5 DAYS *NO DRIVING FOR 3 DAYS *YOU CAN REMOVE YOUR DRESSING TOMORROW BUT DO NOT SUBMERSE YOUR PUNCTURE SITE IN WATER FOR A FEW DAYS TO PREVENT INFECTION - SO NO TUB BATHS, POOLS, HOT TUBS, DISHES...ETC *ANY SIGNS OF BLEEDING (HARDNESS, SWELLING, OR EXCESSIVE BRUISING) HOLD DIRECT PRESSURE ON YOUR PUNCTURE SITE AND COME TO THE NEAREST EMERGENCY ROOM TO GET YOUR PUNCTURE SITE LOOKED AT - DO NOT DRIVE YOURSELF! EITHER CALL EMS OR HAVE SOMEONE DRIVE YOU!
[2023-11-06 19:13] VITALS: BP 149/67; RESP 18
== END | disposition home or self-care (01) ==
LOC: CATHCVL 10:14
PROVIDERS: ATTEND Surgery
DX: I70.221 Atherosclerosis of native arteries of extremities with rest pain, right leg (principal); Z79.02 Long term (current) use of antithrombotics/antiplatelets; Z79.82 Long term (current) use of aspirin; Z79.899 Other long term (current) drug therapy
CPT/HCPCS: 36247; 75710; 76937; 84132; C1769 ×2; C1894 ×2; J2250; J2001; Q9967; J3010

== ENCOUNTER 2023-11-07 15:26 | Emergency (ER) | payer MEDICARE, OTHER ==
[2023-11-07 16:10] VITALS: TEMP 98.4
--- NOTE | 2023-11-07 16:21 | ED ---
General Adult HPI - General Source: patient Mode of arrival: ambulatory Limitations: no limitations <Hesham Galvan - Last Filed: 11/07/23 16:17> <Jono Lan - Last Filed: 11/07/23 20:23> - General Chief complaint: Extremity Problem,Nontraumatic Stated complaint: R Foot Big Toe Black/Bleeding - History of Present Illness Initial comments: Quick note: Patient had angioplasty yesterday on the right leg. This morning patient developed a black right great toe. It is painful. The nail fell off and it is bleeding. at 1620 (Hesham Galvan) Dictation was produced using [employer] dictation software. please excuse any grammatical, word or spelling errors. Chief Complaint: 83-year-old male presents with black great toe History of Present Illness: 83-year-old male he has past medical history of significant peripheral vascular disease. Yesterday he had a angioplasty performed by vascular surgery. Noticed today that his right great toe was black in appearance. States that it hurts. States however that he is leg otherwise feels well. He has not made his follow-up appointment with vascular surgery. Patient has no other acute complaints. Denies any constitutional symptoms. The ROS documented in this emergency department record has been reviewed and confirmed by me. Those systems with pertinent positive or negative responses have been documented in the HPI. All other systems are other negative and/or noncontributory. (Jono Lan) - Related Data Home Medications Medication Instructions Recorded Confirmed Dorzolamide/Timolol/Pf [Cosopt Pf 1 drop BOTH EYES BID 03/18/17 11/06/23 2%/0.5% Ophth Droperette] Simvastatin [Zocor] 40 mg PO DAILY 12/06/20 11/06/23 hydroCHLOROthiazide [Hydrodiuril] 12.5 mg PO DAILY 12/06/20 11/06/23 HYDROcodone/APAP 10-325MG [[place] 1 tab PO Q4H PRN 03/14/21 11/06/23 10-325] Aspirin EC [Ecotrin Low Dose] 81 mg PO DAILY 09/01/23 11/06/23 Clopidogrel Bisulfate [Plavix] 75 mg PO DAILY 09/01/23 11/06/23 Ergocalciferol [Vitamin D2 (1250 1,250 mcg PO DAILY 11/03/23 11/06/23 Mcg = 69318 Iu)] Ferrous Sulfate [Feosol] 325 mg PO DAILY 11/03/23 11/06/23 Latanoprost [Latanoprost 0.005%] 1 drop BOTH EYES DAILY 11/03/23 11/06/23 Previous Rx's Medication Instructions Recorded Gabapentin 300 mg PO TID 3 Days #9 cap 10/11/23 methocarbamoL 750 mg PO TID PRN #12 tablet 10/28/23 Allergies Allergy/AdvReac Type Severity Reaction Status Date / Time rivaroxaban [From Xarelto] AdvReac "internal Verified 11/07/23 16:10 bleeding" Review of Systems ROS Other: All systems not noted in ROS Statement are negative. <Hesham Galvan - Last Filed: 11/07/23 16:17> ROS Other: All systems not noted in ROS Statement are negative. <Jono Lan - Last Filed: 11/07/23 20:23> ROS Statement: Those systems with pertinent positive or pertinent negative responses have been documented in the HPI. Past Medical History Past Medical History: Eye Disorder, Hyperlipidemia, Hypertension, Osteoarthritis (OA), Skin Disorder, Vascular Disorder Additional Past Medical History / Comment(s): Sciatica, PVD, GLAUCOMA, has had double vision a few times, no diagnosis. frequent leg pain-can't walk far, big toenail off foot currently History of Any Multi-Drug Resistant Organisms: MRSA Date of last positivie culture/infection: 08/24/23 MDRO Source:: Groin Past Surgical History: Heart Catheterization, Heart Catheterization With Stent, Orthopedic Surgery Additional Past Surgical History / Comment(s): 3 stents in left leg, angioplasty bilateral legs, aortogram, bilateral cataracts, FEMPOP BYPASS LEFT LEG -FAILED, cysts removed from back and chest. end of May 2023 had right femoral endarterectomy & femoral below knee insitu bypass, hematoma evacuation groin 2022 Past Anesthesia/Blood Transfusion Reactions: No Reported Reaction Date of Last Stent Placement:: 2016 Past Psychological History: No Psychological Hx Reported Smoking Status: Former smoker Past Alcohol Use History: None Reported Past Drug Use History: None Reported - Past Family History Mother Family Medical History: Diabetes Mellitus Father Family Medical History: Coronary Artery Disease (CAD), Rheumatoid Arthritis (RA) Additional Family Medical History / Comment(s): ARTERIAL SCLEROSIS <Hesham Galvan - Last Filed: 11/07/23 16:17> General Exam Limitations: no limitations <ColeHesham - Last Filed: 11/07/23 16:17> <Jono Lan - Last Filed: 11/07/23 20:23> - General Exam Comments Initial Comments: visual physical exam: well appearing, no acute distress, no respiratory distress. Distal right great toe with possible necrosis, missing toe nail with bleeding nail bed. (Hesham Galvan) PHYSICAL EXAM: General Impression: Alert and oriented x3, not in acute distress HEENT: Normocephalic atraumatic, extra-ocular movements intact, pupils equal and reactive to light bilaterally, mucous membranes moist. Cardiovascular: Heart regular rate and rhythm Chest: Able to complete full sentences, no retractions, no tachypnea Musculoskeletal: Pulses present and equal in all extremities, no peripheral edema Motor: no focal deficits noted Neurological: CN II-XII grossly intact, no focal motor or sensory deficits noted Skin: Intact with no visualized rashes Psych: Normal affect and mood right foot: Gangrenous distal tip of the right great toe, no malodor, no drainage (Jono Lan) Course Vital Signs 11/07/23 16:08 Temperature 98.4 F Pulse Rate 91 Respiratory 20 Rate Blood Pressure 138/59 O2 Sat by Pulse 98 Oximetry Medical Decision Making - Lab Data Result diagrams: 11/07/23 19:19 11/07/23 19:19 <Jono Lan - Last Filed: 11/07/23 20:23> - Medical Decision Making Was pt. sent in by a medical professional or institution (, PA, ANESTHESIOLOGIST ATTENDING, urgent care, hospital, or alf...) When possible be specific @ -No Did you speak to anyone other than the patient for history (EMS, parent, family, police, friend...)? What history was obtained from this source @ -No Did you review nursing and triage notes (agree or disagree)? Why? @ -I reviewed and agree with nursing and triage notes Were old charts reviewed (outside hosp., previous admission, EMS record, old EKG , old radiological studies, urgent care reports/EKG's, alf records)? Report findings @ -No old charts were reviewed Differential Diagnosis (chest pain, altered mental status, abdominal pain women, abdominal pain men, vaginal bleeding, musculoskeletal, weakness, fever, dyspnea, syncope, headache, dizziness, GI bleed, back pain, seizure, CVA, palpatations, mental health)? @ -not applicable EKG interpreted by me (3pts min.). @ -None done X-rays interpreted by me (1pt min.). @ -X-ray of the foot shows no acute processes. No evidence of osteomyelitis. CT interpreted by me (1pt min.). @ -None done U/S interpreted by me (1pt. min.). @ -None done What testing was considered but not performed or refused? (CT, X-rays, U/S, labs)? Why? @ -None What meds were considered but not given or refused? Why? @ -None Did you discuss the management of the patient with other professionals (pr ofessionals i.e. , PA, ANESTHESIOLOGIST ATTENDING, lab, RT, psych nurse, social sciences instructor, ent surgeon, teacher, aoc [employer]ad[employer] operations staff officer, shelter case manager)? Give summary @ -No Was smoking cessation discussed for >3mins.? @ -No Was critical care preformed (if so, how long)? @ -No Were there social determinants of health that impacted care today? How? (Homelessness, low income, unemployed, alcoholism, drug addiction, transport ation, low edu. Level, literacy, decrease access to med. care, long term, rehab)? @ -No Was there de-escalation of care discussed even if they declined (Discuss DNR or withdrawal of care, Hospice)? DNR status @ -No What co-morbidities impacted this encounter? (DM, HTN, Smoking, COPD, CAD, Cancer, CVA, ARF, Chemo, Hep., AIDS, mental health diagnosis, sleep apnea, morbid obesity)? @ -None Was patient admitted / discharged? Hospital course, mention meds given and route, prescriptions, significant lab abnormalities, going to OR and other pertinent info. @ -83-year-old male presents with dry gangrene to the right great toe. He does have extensive history of peripheral vascular disease. No concern for white gangrene. X-rays nonacute. No leukocytosis. Labs are otherwise unremarkable. Patient observed in emergency room for several hours. Patient with discharge. Advised up with primary care doctor. Patient counseled on wet versus dry gangrene. Return precautions discussed. Patient understandable and agreeable for plan. Undiagnosed new problem with uncertain prognosis? @ -No Drug Therapy requiring intensive monitoring for toxicity (Heparin, Nitro, Insulin, Cardizem)? @ -No Were any procedures done? @ -No Diagnosis/symptom? Acute, or Chronic, or Acute on Chronic? Uncomplicated (without systemic symptoms) or Complicated (systemic symptoms)? @ -Dry gangrene of the right great toe Side effects of treatment? @ -No Exacerbation, Progression, or Severe Exacerbation? @ -No Poses a threat to life or bodily function? How? (Chest pain, [place], [place], pneumonia, PE, COPD, DKA, ARF, appy, cholecystitis, CVA, Diverticulitis, Homicidal, Suicidal, threat to staff... and all critical care pts) @ -No (Jono Lan) - Lab Data Lab Results 11/07/23 11/07/23 11/07/23 Range/Units 19:19 19:19 19:19 WBC 7.6 (3.8-10.6) k/uL RBC 4.00 L (4.30-5.90) m/uL Hgb 10.9 L (13.0-17.5) gm/dL Hct 33.7 L (39.0-53.0) % MCV 84.3 (80.0-100.0) fL MCH 27.3 (25.0-35.0) pg MCHC 32.4 (31.0-37.0) g/dL RDW 18.0 H (11.5-15.5) % Plt Count 339 (150-450) k/uL MPV 7.6 Neutrophils % 76 % Lymphocytes % 11 % Monocytes % 5 % Eosinophils % 5 % Basophils % 0 % Neutrophils # 5.8 (1.3-7.7) k/uL Lymphocytes # 0.9 L (1.0-4.8) k/uL Monocytes # 0.4 (0-1.0) k/uL Eosinophils # 0.4 (0-0.7) k/uL Basophils # 0.0 (0-0.2) k/uL Hypochromasia Slight Anisocytosis Slight Microcytosis Slight Sodium 138 (137-145) mmol/L Potassium 4.9 (3.5-5.1) mmol/L Chloride 103 (98-107) mmol/L Carbon Dioxide 22 (22-30) mmol/L Anion Gap 13 mmol/L BUN 13 (9-20) mg/dL Creatinine 0.67 (0.66-1.25) mg/dL Est GFR (CKD-EPI)AfAm >90 (>60 ml/min/1.73 sqM) Est GFR (CKD-EPI)NonAf 88 (>60 ml/min/1.73 sqM) Glucose 104 H (74-99) mg/dL Plasma Lactic Acid Mike 1.5 (0.7-2.0) mmol/L Calcium 9.0 (8.4-10.2) mg/dL Total Bilirubin 0.8 (0.2-1.3) mg/dL AST 44 (17-59) U/L ALT 24 (4-49) U/L Alkaline Phosphatase 112 (38-126) U/L Total Protein 7.5 (6.3-8.2) g/dL Albumin 4.0 (3.5-5.0) g/dL Disposition <Hesham Galvan - Last Filed: 11/07/23 16:17> Is patient prescribed a controlled substance at d/c from ED?: No Time of Disposition: 20:22 <Jono Lan - Last Filed: 11/07/23 20:23> Clinical Impression: Dry gangrene Disposition: HOME SELF-CARE Condition: Good Instructions (If sedation given, give patient instructions): Gangrene (DC) Referrals: Blake Barber MD [Primary Care Provider] - 1-2 days
--- NOTE | 2023-11-07 16:46 | XR ---
EXAMINATION TYPE: XR foot complete RT DATE OF EXAM: 11/07/2023 COMPARISON: NONE HISTORY: 83-year-old male with, necrotic great toe, pain TECHNIQUE: 3 views FINDINGS: Vascular calcifications suggesting underlying diabetes and chronic kidney disease. There is bony irregularity along the medial fifth proximal phalangeal base suggesting an age indeterminate, p robably chronic intra-articular fracture. No soft tissue air or discrete bony destruction is identifi ed. Marked generalized soft tissue swelling along the forefoot and midfoot region. IMPRESSION: 1. Prominent soft tissue swelling but no radiographic findings of osteomyelitis at this time. No soft tissue air is seen. 2. Age-indeterminate, suspected chronic fracture deformity of the medial fifth proximal phalangeal ba se. Clinical correlate. 3. Vascular calcifications suggesting underlying diabetes in her chronic kidney disease.
[2023-11-07] MEDS ORDERED: HYDROcodone/APAP 10-325MG 1 EACH TAB PO ONE (17:36)
[2023-11-07 19:55] LABS: Anisocytosis Slight; Basophils % (A) 0 %; Eosinophils # (A) 0.4 k/uL (0-0.7); Eosinophils % (A) 5 %; HCT 33.7 % (39.0-53.0); HGB 10.9 gm/dL (13.0-17.5); Hypochromasia Slight; Lymphocytes # (A) 0.9 k/uL (1.0-4.8); Lymphocytes % (A) 11 %; MCH 27.3 pg (25.0-35.0); MCHC 32.4 g/dL (31.0-37.0); MCV 84.3 fL (80.0-100.0); Mean Platelet Volume 7.6; Microcytosis Slight; Monocytes # (A) 0.4 k/uL (0-1.0); Monocytes % (A) 5 %; Neutrophils # (A) 5.8 k/uL (1.3-7.7); Neutrophils % (A) 76 %; Platelet Count 339 k/uL (150-450); WBC 7.6 k/uL (3.8-10.6)
[2023-11-07 20:04] LABS: ALT 24 U/L (4-49); AST 44 U/L (17-59); African American GFR (CKD) >90 (>60 ml/min/1.73 sqM); Alkaline Phosphatase 112 U/L (38-126); Anion Gap 13 mmol/L; Blood Urea Nitrogen 13 mg/dL (9-20); Carbon Dioxide 22 mmol/L (22-30); Chloride 103 mmol/L (98-107); Glucose 104 mg/dL (74-99); Non-African American GFR(CKD) 88 (>60 ml/min/1.73 sqM); Sodium 138 mmol/L (137-145); Total Bilirubin 0.8 mg/dL (0.2-1.3); Total Protein 7.5 g/dL (6.3-8.2)
[2023-11-07 20:06] LABS: Potassium 4.9 mmol/L (3.5-5.1)
[2023-11-07 20:49] VITALS: BP 154/69; PULSE 77; RESP 17
== END 2023-11-07 20:45 | disposition home or self-care (01) ==
LOC: EC 15:26
DX: I96 Gangrene, not elsewhere classified (principal); E78.5 Hyperlipidemia, unspecified; I10 Essential (primary) hypertension; Z87.891 Personal history of nicotine dependence; Z79.899 Other long term (current) drug therapy; Z79.82 Long term (current) use of aspirin; Z88.8 Allergy status to other drugs, medicaments and biological substances
CPT/HCPCS: 36415; 80053; 83605; 85025; 99284

== ENCOUNTER 2023-11-20 23:44 | Inpatient (IN) | payer MEDICARE, OTHER ==
[2023-11-20 23:51] LABS: Glucose,Whole Blood 125 mg/dL (70-110)
[2023-11-21] MEDS ORDERED: SODIUM CHLORIDE 0.9% 500 ML 500 ML IV ONE (00:17)
[2023-11-21] MEDS ORDERED: MORPHINE SULFATE 4 MG/ML SYRINGE IVP STA (00:19)
[2023-11-21 01:14] LABS: Anisocytosis Slight; Basophils % (A) 0 %; Eosinophils # (A) 0.1 k/uL (0-0.7); Eosinophils % (A) 1 %; HCT 32.6 % (39.0-53.0); HGB 10.5 gm/dL (13.0-17.5); Hypochromasia Slight; Lymphocytes # (A) 0.4 k/uL (1.0-4.8); Lymphocytes % (A) 4 %; MCH 27.1 pg (25.0-35.0); MCHC 32.1 g/dL (31.0-37.0); MCV 84.7 fL (80.0-100.0); Mean Platelet Volume 7.4; Monocytes # (A) 0.5 k/uL (0-1.0); Monocytes % (A) 4 %; Neutrophils # (A) 9.6 k/uL (1.3-7.7); Neutrophils % (A) 89 %; Platelet Count 319 k/uL (150-450); RBC 3.85 m/uL (4.30-5.90); RDW 17.6 % (11.5-15.5); WBC 10.8 k/uL (3.8-10.6)
[2023-11-21 01:19] LABS: ALT 14 U/L (4-49); AST 22 U/L (17-59); African American GFR (CKD) >90 (>60 ml/min/1.73 sqM); Albumin 3.5 g/dL (3.5-5.0); Alkaline Phosphatase 108 U/L (38-126); Anion Gap 6 mmol/L; Blood Urea Nitrogen 17 mg/dL (9-20); Calcium 8.8 mg/dL (8.4-10.2); Carbon Dioxide 26 mmol/L (22-30); Chloride 108 mmol/L (98-107); Creatine Kinase 78 U/L (55-170); Glucose 123 mg/dL (74-99); Non-African American GFR(CKD) 87 (>60 ml/min/1.73 sqM); Potassium 4.3 mmol/L (3.5-5.1); Sodium 140 mmol/L (137-145); Total Bilirubin 0.5 mg/dL (0.2-1.3); Total Protein 6.6 g/dL (6.3-8.2)
[2023-11-21 01:32] LABS: INR 1.1 (<1.2)
[2023-11-21 01:33] LABS: Prothrombin Time 11.9 sec (10.0-12.5)
[2023-11-21 01:34] LABS: Partial Thromboplastin Time 21.8 sec (22.0-30.0)
--- NOTE | 2023-11-21 01:40 | ED ---
Fall HPI - General Chief Complaint: Fall Stated Complaint: Fall Time Seen by Provider: 11/21/23 00:03 Source: EMS Mode of arrival: EMS - History of Present Illness Initial Comments: 83-year-old male presenting for evaluation post fall. The patient's neighbor called the patient's friend to inform him that he had fallen. The friend then called EMS who brought the patient to the ER. Patient is normally a and O 4 at this time he is somewhat confused. He cannot remember how he fell. He does tell me that he has been falling frequently over the last 2 days. He complains of right hip and thigh pain and left-sided shoulder pain. Unknown if loss of consciousness. Patient is on Plavix. 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 David, he is scheduled for amputation on the . He denies chest pain, difficulty breathing, nausea, vomiting, abdominal pain. - Related Data Home Medications Medication Instructions Recorded Confirmed Dorzolamide/Timolol/Pf [Cosopt Pf 1 drop BOTH EYES BID 03/18/17 11/21/23 2%/0.5% Ophth Droperette] Simvastatin [Zocor] 40 mg PO HS 12/06/20 11/21/23 hydroCHLOROthiazide [Hydrodiuril] 12.5 mg PO DAILY 12/06/20 11/21/23 HYDROcodone/APAP 10-325MG [[place] 1 tab PO BID PRN 03/14/21 11/21/23 10-325] Clopidogrel Bisulfate [Plavix] 75 mg PO DIRECTED 09/01/23 11/21/23 Ferrous Sulfate [Feosol] 325 mg PO DAILY 11/03/23 11/21/23 Latanoprost [Latanoprost 0.005%] 1 drop BOTH EYES HS 11/03/23 11/21/23 Gabapentin 600 mg PO TID 11/21/23 11/21/23 Previous Rx's Medication Instructions Recorded methocarbamoL 750 mg PO TID PRN #12 tablet 10/28/23 Allergies Allergy/AdvReac Type Severity Reaction Status Date / Time rivaroxaban [From Xarelto] AdvReac "internal Verified 11/21/23 13:10 bleeding" Review of Systems ROS Statement: Those systems with pertinent positive or pertinent negative responses have been documented in the HPI. ROS Other: All systems not noted in ROS Statement are negative. Past Medical History Past Medical History: Eye Disorder, Hyperlipidemia, Hypertension, Osteoarthritis (OA), Skin Disorder, Vascular Disorder Additional Past Medical History / Comment(s): Sciatica, PVD, GLAUCOMA, has had double vision a few times, no diagnosis. frequent leg pain-can't walk far, big toenail off foot currently History of Any Multi-Drug Resistant Organisms: MRSA Date of last positivie culture/infection: 08/24/23 MDRO Source:: Groin Past Surgical History: Heart Catheterization, Heart Catheterization With Stent, Orthopedic Surgery Additional Past Surgical History / Comment(s): 3 stents in left leg, angioplasty bilateral legs, aortogram, bilateral cataracts, FEMPOP BYPASS LEFT LEG -FAILED, cysts removed from back and chest. end of May 2023 had right femoral endarterectomy & femoral below knee insitu bypass, hematoma evacuation groin 2022 Past Anesthesia/Blood Transfusion Reactions: No Reported Reaction Date of Last Stent Placement:: 2016 Past Psychological History: No Psychological Hx Reported Smoking Status: Former smoker Past Alcohol Use History: None Reported Past Drug Use History: None Reported - Past Family History Mother Family Medical History: Diabetes Mellitus Father Family Medical History: Coronary Artery Disease (CAD), Rheumatoid Arthritis (RA) Additional Family Medical History / Comment(s): ARTERIAL SCLEROSIS General Exam General appearance: alert, obtunded Head exam: Present: atraumatic, normocephalic Eye exam: Present: normal appearance, PERRL, EOMI Neck exam: Present: normal inspection Respiratory exam: Present: normal lung sounds bilaterally. Absent: respiratory distress, wheezes, rales, rhonchi, stridor Cardiovascular Exam: Present: normal rhythm, tachycardia, normal heart sounds. Absent: systolic murmur, diastolic murmur, rubs, gallop, clicks Right Hip exam: Present: tenderness. Absent: full ROM Upper Leg exam: Present: tenderness. Absent: full ROM Foot/Toe exam: Present: deformity (Dry gangrene to the right first toe) Neurological exam: Present: alert, altered Course Vital Signs 11/20/23 11/21/23 11/21/23 23:47 01:33 02:30 Temperature Pulse Rate 101 H 98 91 Respiratory 18 41 H 27 H Rate Blood Pressure 176/65 157/60 159/59 O2 Sat by Pulse 95 99 98 Oximetry 01/20/24 01/20/24 01/20/24 03:30 04:00 04:30 Temperature Pulse Rate 87 101 H 103 H Respiratory 13 17 31 H Rate Blood Pressure 160/65 160/65 176/78 O2 Sat by Pulse 98 98 98 Oximetry 11/21/23 11/21/23 11/21/23 04:55 05:00 05:30 Temperature 98.1 F Pulse Rate 100 98 90 Respiratory 18 16 16 Rate Blood Pressure 182/79 182/79 187/73 O2 Sat by Pulse 96 98 96 Oximetry 11/21/23 11/21/23 11/21/23 06:00 07:00 07:28 Temperature Pulse Rate 82 78 84 Respiratory 25 H 15 16 Rate Blood Pressure 187/73 187/73 137/73 O2 Sat by Pulse 98 98 99 Oximetry 11/21/23 11/21/23 11/21/23 10:36 11:00 11:30 Temperature Pulse Rate 80 75 98 Respiratory 19 12 24 Rate Blood Pressure 151/72 151/72 157/57 O2 Sat by Pulse 99 98 97 Oximetry 11/21/23 11/21/23 11/21/23 12:00 14:00 14:30 Temperature Pulse Rate 61 71 66 Respiratory 17 16 18 Rate Blood Pressure 157/57 168/48 173/60 O2 Sat by Pulse 98 99 97 Oximetry 11/21/23 11/21/23 11/21/23 15:00 15:30 16:48 Temperature Pulse Rate 75 90 Respiratory 28 H 21 16 Rate Blood Pressure 173/60 165/67 155/53 O2 Sat by Pulse 98 97 96 Oximetry Medical Decision Making - Medical Decision Making 83-year-old male brought in by EMS for evaluation post fall. A friend came to his house and found him on the floor, unsure how long he was down. He is complaining of right hip pain and left shoulder pain. He is altered and not at his baseline mental status according to the front. History and physical exam were conducted. Patient does have gangrene to the right first toe, he has an amputation scheduled for the [address] David. Patient tells me he has been taking a lot of pain medication at home, may be the reason that he has been having recurrent falls. WBC 10.[address] of the brain and cervical spine shows no acute intracranial process or cervical spine fracture. Chest x- ray shows no acute process. X-rays of the femur pelvis and shoulder show no fracture or dislocation. UA is pending. The patient will be admitted for weakness, recurrent falls, and altered mental status. Vascular surgery consult be placed for gangrenous toe. Patient is agreeable with this plan. I discussed this case with my attending Dr. Lan Was pt. sent in by a medical professional or institution (, PA, RAILWAY YARD ASSISTANT, urgent care, hospital, or intermediate...) When possible be specific @ -No Did you speak to anyone other than the patient for history (EMS, parent, family, police, friend...)? What history was obtained from this source @ -History supplemented by the patient's friend at bedside Did you review nursing and triage notes (agree or disagree)? Why? @ -I reviewed and agree with nursing and triage notes Were old charts reviewed (outside hosp., previous admission, EMS record, old EKG, old radiological studies, urgent care reports/EKG's, intermediate records)? Report findings @ -Previous ER visits and vascular surgery notes reviewed Differential Diagnosis (chest pain, altered mental status, abdominal pain women, abdominal pain men, vaginal bleeding, weakness, fever, dyspnea, syncope, headache, dizziness, GI bleed, back pain, seizure, CVA, palpatations, mental health, musculoskeletal)? @ -[facility] Differential Altered Mental Status: Hypoglycemia, DKA, hypercapnia, ETOH, overdose, CO poisoning, trauma, myxedema coma, HTN encephalopathy, infection, encephalitis, psychosis, intercranial hemorrhage, hepatic encephalopathy, meningitis, CVA this is not meant to be an all-inclusive list EKG interpreted by me (3pts min.). @ -As above X-rays interpreted by me (1pt min.). @ -Chest x-ray shows no acute cardiopulmonary process. Shoulder x-ray shows no fracture or dislocation. Pelvis and femur x-ray showed mild varus angulation of the right proximal femur versus positional appearance. No definite fracture. CT interpreted by me (1pt min.). @ -CT of the brain and cervical spine shows no evidence of acute intracranial abnormality. Partially opacified right mastoid air cells age-indeterminate. No acute findings in the cervical spine. Degenerative changes. U/S interpreted by me (1pt. min.). @ -None done What testing was considered but not performed or refused? (CT, X-rays, U/S, labs)? Why? @ -None What meds were considered but not given or refused? Why? @ -None Did you discuss the management of the patient with other professionals (professionals i.e. , PA, RAILWAY YARD ASSISTANT, lab, RT, psych nurse, social media content manager, adult remedial education instructor, teacher, penal officer, upper caser)? Give summary @ -No Was smoking cessation discussed for >3mins.? @ -No Was critical care preformed (if so, how long)? @ -No Were there social determinants of health that impacted care today? How? (Homelessness, low income, unemployed, alcoholism, drug addiction, transportation, low edu. Level, literacy, decrease access to med. care, [facility], rehab)? @ -No Was there de-escalation of care discussed even if they declined (Discuss DNR or withdrawal of care, Hospice)? DNR status @ -No What co-morbidities impacted this encounter? (DM, HTN, Smoking, COPD, CAD, Cancer, CVA, ARF, Chemo, Hep., AIDS, mental health diagnosis, sleep apnea, morbid obesity)? @ -None Was patient admitted / discharged? Hospital course, mention meds given and route, prescriptions, significant lab abnormalities, going to OR and other pertinent info. @ -See above Undiagnosed new problem with uncertain prognosis? @ -No Drug Therapy requiring intensive monitoring for toxicity (Heparin, Nitro, Insulin, Cardizem)? @ -No Were any procedures done? @ -No Diagnosis/symptom? @ -Altered mental status, recurrent falls, weakness Acute, or Chronic, or Acute on Chronic? @ -Acute Uncomplicated (without systemic symptoms) or Complicated (systemic symptoms)? @ -Complicated Side effects of treatment? @ -No Exacerbation, Progression, or Severe Exacerbation? @ -No Poses a threat to life or bodily function? How? (Chest pain, [place], [place], pneumonia, PE, COPD, DKA, ARF, appy, cholecystitis, CVA, Diverticulitis, Homicidal, Suicidal, threat to staff... and all critical care pts) @ -yes Diagnosis/symptom? @Dry gangrene Acute, or Chronic, or Acute on Chronic? @Acute Uncomplicated (without systemic symptoms) or Complicated (systemic symptoms)? @Complicated Side effects of treatment? @ none Exacerbation, Progression, or Severe Exacerbation] @ no Poses a threat to life or bodily function? @ yes - Lab Data Result diagrams: 11/21/23 00:26 11/21/23 00:26 Lab Results 11/20/23 11/21/23 11/21/23 Range/Units 23:48 00:26 00:26 WBC 10.8 H (3.8-10.6) k/uL RBC 3.85 L (4.30-5.90) m/uL Hgb 10.5 L (13.0-17.5) gm/dL Hct 32.6 L (39.0-53.0) % MCV 84.7 (80.0-100.0) fL MCH 27.1 (25.0-35.0) pg MCHC 32.1 (31.0-37.0) g/dL RDW 17.6 H (11.5-15.5) % Plt Count 319 (150-450) k/uL MPV 7.4 Neutrophils % 89 % Lymphocytes % 4 % Monocytes % 4 % Eosinophils % 1 % Basophils % 0 % Neutrophils # 9.6 H (1.3-7.7) k/uL Lymphocytes # 0.4 L (1.0-4.8) k/uL Monocytes # 0.5 (0-1.0) k/uL Eosinophils # 0.1 (0-0.7) k/uL Basophils # 0.0 (0-0.2) k/uL Hypochromasia Slight Anisocytosis Slight PT 11.9 (10.0-12.5) sec INR 1.1 (<1.2) APTT 21.8 L (22.0-30.0) sec Sodium (137-145) mmol/L Potassium (3.5-5.1) mmol/L Chloride (98-107) mmol/L Carbon Dioxide (22-30) mmol/L Anion Gap mmol/L BUN (9-20) mg/dL Creatinine (0.66-1.25) mg/dL Est GFR (CKD-EPI)AfAm (>60 ml/min/1.73 sqM) Est GFR (CKD-EPI)NonAf (>60 ml/min/1.73 sqM) Glucose (74-99) mg/dL POC Glucose (mg/dL) 125 H (70-110) mg/dL POC Glu Bell Spinner ID Gilmar Daniels Plasma Lactic Acid Mike (0.7-2.0) mmol/L Calcium (8.4-10.2) mg/dL Total Bilirubin (0.2-1.3) mg/dL AST (17-59) U/L ALT (4-49) U/L Alkaline Phosphatase (38-126) U/L Creatine Kinase (55-170) U/L Total Protein (6.3-8.2) g/dL Albumin (3.5-5.0) g/dL Urine Color Urine Appearance (Clear) Urine pH (5.0-8.0) Ur Specific [place] (1.001-1.035) Urine Protein (Negative) Urine Glucose (UA) (Negative) Urine Ketones (Negative) Urine Blood (Negative) Urine Nitrite (Negative) Urine Bilirubin (Negative) Urine Urobilinogen (<2.0) mg/dL Ur Leukocyte Esterase (Negative) 11/21/23 11/21/23 11/21/23 Range/Units 00:26 00:26 04:50 WBC (3.8-10.6) k/uL RBC (4.30-5.90) m/uL Hgb (13.0-17.5) gm/dL Hct (39.0-53.0) % MCV (80.0-100.0) fL MCH (25.0-35.0) pg MCHC (31.0-37.0) g/dL RDW (11.5-15.5) % Plt Count (150-450) k/uL MPV Neutrophils % % Lymphocytes % % Monocytes % % Eosinophils % % Basophils % % Neutrophils # (1.3-7.7) k/uL Lymphocytes # (1.0-4.8) k/uL Monocytes # (0-1.0) k/uL Eosinophils # (0-0.7) k/uL Basophils # (0-0.2) k/uL Hypochromasia Anisocytosis PT (10.0-12.5) sec INR (<1.2) APTT (22.0-30.0) sec Sodium 140 (137-145) mmol/L Potassium 4.3 (3.5-5.1) mmol/L Chloride 108 H (98-107) mmol/L Carbon Dioxide 26 (22-30) mmol/L Anion Gap 6 mmol/L BUN 17 (9-20) mg/dL Creatinine 0.71 (0.66-1.25) mg/dL Est GFR (CKD-EPI)AfAm >90 (>60 ml/min/1.73 sqM) Est GFR (CKD-EPI)NonAf 87 (>60 ml/min/1.73 sqM) Glucose 123 H (74-99) mg/dL POC Glucose (mg/dL) (70-110) mg/dL POC Glu Bell Spinner ID Plasma Lactic Acid Mike 2.9 H* (0.7-2.0) mmol/L Calcium 8.8 (8.4-10.2) mg/dL Total Bilirubin 0.5 (0.2-1.3) mg/dL AST 22 (17-59) U/L ALT 14 (4-49) U/L Alkaline Phosphatase 108 (38-126) U/L Creatine Kinase 78 (55-170) U/L Total Protein 6.6 (6.3-8.2) g/dL Albumin 3.5 (3.5-5.0) g/dL Urine Color Colorless Urine Appearance Clear (Clear) Urine pH 7.0 (5.0-8.0) Ur Specific [place] 1.014 (1.001-1.035) Urine Protein Negative (Negative) Urine Glucose (UA) Negative (Negative) Urine Ketones Negative (Negative) Urine Blood Negative (Negative) Urine Nitrite Negative (Negative) Urine Bilirubin Negative (Negative) Urine Urobilinogen <2.0 (<2.0) mg/dL Ur Leukocyte Esterase Negative (Negative) Disposition Clinical Impression: Gangrene, Recurrent falls, Altered mental status Disposition: ADMITTED IP TO THIS HOSP Condition: Stable Time of Disposition: 03:56
--- NOTE | 2023-11-21 01:56 | CT ---
EXAM: CT Head Without Intravenous Contrast CLINICAL HISTORY: ITS.REASON CT Reason: fall TECHNIQUE: Axial computed tomography images of the head/brain without intravenous contrast. CTDI is 45.3 mGy and DLP is 1085 mGy-cm. This CT exam was performed using one or more of the following dose reduction techniques: automated exposure control, adjustment of the mA and/or kV according to patient size, and/or use of iterative reconstruction technique. COMPARISON: No relevant prior studies available. FINDINGS: Brain: Volume loss with prominent ventricles and sulci. Periventricular and subcortical white matter hypoattenuation likely reflects chronic small vessel disease. No hemorrhage. Ventricles: See above. Bones/joints: Unremarkable. No acute fracture. Soft tissues: Unremarkable. Sinuses: Unremarkable as visualized. No acute sinusitis. Mastoid air cells: Partially opacified right mastoid air cells. IMPRESSION: 1. No evidence of acute intracranial abnormality. 2. Partially opacified right mastoid air cells. Age-indeterminate. EXAM: CT Cervical Spine Without Intravenous Contrast CLINICAL HISTORY: ITS.REASON CT Reason: fall TECHNIQUE: Axial computed tomography images of the cervical spine without intravenous contrast. CTDI is 9 mGy and DLP is 283.4 mGy-cm. This CT exam was performed using one or more of the following dose reduction techniques: automated exposure control, adjustment of the mA and/or kV according to patient size, and/or use of iterative reconstruction technique. COMPARISON: No relevant prior studies available. FINDINGS: Artifacts: Some motion artifact. Vertebrae: Unremarkable. No acute fracture. Discs/spinal canal/neural foramina: Multilevel degenerative changes. Varying degrees of moderate to severe central canal and foraminal stenoses, notably at C3-4 and C4-5. Soft tissues: Unremarkable. IMPRESSION: 1. No acute findings in the cervical spine. 2. Degenerative changes.
--- NOTE | 2023-11-21 02:12 | XR ---
EXAM: XR Chest, 1 View CLINICAL HISTORY: ITS.REASON XR Reason: fall TECHNIQUE: Frontal view of the chest. COMPARISON: XR Chest dated 06/18/2023 FINDINGS: Lungs: Unremarkable. No consolidation. Pleural space: Unremarkable. No pneumothorax. Heart: Unremarkable. No cardiomegaly. Mediastinum: Unremarkable. Normal mediastinal contour. Bones/joints: Unremarkable. No acute fracture. IMPRESSION: No evidence of acute cardiopulmonary disease.
--- NOTE | 2023-11-21 02:15 | XR ---
EXAM: XR Left Shoulder Complete, 2 or More Views CLINICAL HISTORY: [email or web address].REASON XR Reason: fall TECHNIQUE: Two or more views of the left shoulder. COMPARISON: No relevant prior studies available. FINDINGS: Bones/joints: Degenerative changes of the glenohumeral and acromioclavicular joints. No acute fracture. No dislocation. Soft tissues: Unremarkable. IMPRESSION: No evidence of acute fracture or dislocation.
--- NOTE | 2023-11-21 02:22 | XR ---
EXAM: XR Pelvis, 1 or 2 Views CLINICAL HISTORY: ITS.REASON XR Reason: fall TECHNIQUE: Frontal view of the pelvis. COMPARISON: XR Pelvis dated 09/01/23 FINDINGS: Bones/joints: Degenerative changes of the lumbosacral spine. Mild varus angulation of the right proximal femur versus positional appearance. No definite fracture. No dislocation. Soft tissues: Asymmetric increased opacity of the right medial thigh soft tissues versus overlapping structures. Left femoral stent as on the prior. Multiple surrounding clips. IMPRESSION: 1. Mild varus angulation of the right proximal femur versus positional appearance. No definite fracture. 2. Asymmetric increased opacity of the right medial thigh soft tissues versus overlapping structures.
--- NOTE | 2023-11-21 02:27 | XR ---
EXAM: XR Right Femur, 1 View CLINICAL HISTORY: [email or web address].REASON XR Reason: fall TECHNIQUE: Frontal view of the right femur. 2 AP images COMPARISON: No relevant prior studies available. FINDINGS: Bones/joints: Varus angulation of the proximal right femur versus positional appearance. No definite fracture. No dislocation. Soft tissues: Arterial calcifications. IMPRESSION: Varus angulation of the proximal right femur versus positional appearance. No definite fracture.
[2023-11-21] MEDS ORDERED: ACETAMINOPHEN TAB 325 MG TAB PO PRN (03:30)
[2023-11-21] MEDS ORDERED: NALOXONE 0.4 MG/ML 1 ML VIAL IV PRN (03:30)
[2023-11-21 03:58] LABS: Appearance,Urine Clear (Clear); Bilirubin,Urine Negative (Negative); Blood,Urine Negative (Negative); Color,Urine Colorless; Glucose,Urine (UA) Negative (Negative); Ketones,Urine Negative (Negative); Leukocyte Esterase,Urine Negative (Negative); Nitrite,Urine Negative (Negative); Protein,Urine Negative (Negative); Specific Gravity,Urine 1.014 (1.001-1.035); Urobilinogen,Urine <2.0 mg/dL (<2.0)
[2023-11-21] MEDS: SODIUM CHLORIDE 0.9% 1,000 ML IV SCH ×2 (04:59→16:41)
--- NOTE | 2023-11-21 10:26 | P.HPIM ---
History of Present Illness H&P Date: 11/21/23 This is an 83-year-old male patient who presented to the ER to be evaluated after sustaining a fall according to records patient was found by a neighbor and EMS was called. Patient reports that he's been falling frequently over the past few days upon arrival head and cervical CT completed showing no evidence of acute intracranial abnormality partially opacified right mastoid air cells age indeterminant. No acute fracture seen and cervical spine degenerative changes. Chest x-ray completed showing no evidence of acute cardiopulmonary disease. Shoulder x-ray completed showing no evidence of acute fracture or dislocation. Pelvis x-ray completed showing mild varus angulation the right proximal tibial versus positional appearance no definitive fracture asymmetric increased opacity superomedial thigh soft tissue versus overlapping structures. Femur x-ray completed showing varices angulation the proximal right femur versus positional appearance note definitive fracture. Patient has past medical history of gangrene is right toe in which she has planned amputation on the . Addition al medical history includes hyperlipidemia, hypertension, sciatica, vascular disease with 3 stents in left leg and ex-smoker. At this time patient will be admitted patient noted to have elevated lactic acid will start patient on IV Zosyn and consult vascular surgery along with infectious disease. Current vital signs temp 98.1, heart rate 84, respiratory rate 16, blood pressure 137/73 with pulse ox 99% on room air. At this time patient denies chest pain or shortness breath. Patient denies nausea vomiting or diarrhea. Patient denies any urinary burning or frequency Review of Systems Please refer to HPI otherwise unremarkable Past Medical History Past Medical History: Eye Disorder, Hyperlipidemia, Hypertension, Osteoarthritis (OA), Skin Disorder, Vascular Disorder Additional Past Medical History / Comment(s): Sciatica, PVD, GLAUCOMA, has had double vision a few times, no diagnosis. frequent leg pain-can't walk far, big toenail off foot currently History of Any Multi-Drug Resistant Organisms: MRSA Date of last positivie culture/infection: 08/24/23 MDRO Source:: Groin Past Surgical History: Heart Catheterization, Heart Catheterization With Stent, Orthopedic Surgery Additional Past Surgical History / Comment(s): 3 stents in left leg, angioplasty bilateral legs, aortogram, bilateral cataracts, FEMPOP BYPASS LEFT LEG -FAILED, cysts removed from back and chest. end of May 2023 had right femoral endarterectomy & femoral below knee insitu bypass, hematoma evacuation groin 2022 Past Anesthesia/Blood Transfusion Reactions: No Reported Reaction Date of Last Stent Placement:: 2016 Past Psychological History: No Psychological Hx Reported Smoking Status: Former smoker Past Alcohol Use History: None Reported Past Drug Use History: None Reported - Past Family History Mother Family Medical History: Diabetes Mellitus Father Family Medical History: Coronary Artery Disease (CAD), Rheumatoid Arthritis (RA) Additional Family Medical History / Comment(s): ARTERIAL SCLEROSIS Medications and Allergies Home Medications Medication Instructions Recorded Confirmed Type Dorzolamide/Timolol/Pf [Cosopt Pf 1 drop BOTH EYES BID 03/18/17 11/06/23 History 2%/0.5% Ophth Droperette] Simvastatin [Zocor] 40 mg PO DAILY 12/06/20 11/06/23 History hydroCHLOROthiazide [Hydrodiuril] 12.5 mg PO DAILY 12/06/20 11/06/23 History HYDROcodone/APAP 10-325MG [[place] 1 tab PO Q4H PRN 03/14/21 11/06/23 History 10-325] Aspirin EC [Ecotrin Low Dose] 81 mg PO DAILY 09/01/23 11/06/23 History Clopidogrel Bisulfate [Plavix] 75 mg PO DAILY 09/01/23 11/06/23 History Gabapentin 300 mg PO TID 3 Days #9 cap 10/11/23 11/06/23 Rx methocarbamoL 750 mg PO TID PRN #12 tablet 10/28/23 11/06/23 Rx Ergocalciferol [Vitamin D2 (1250 1,250 mcg PO DAILY 11/03/23 11/06/23 History Mcg = 38625 Iu)] Ferrous Sulfate [Feosol] 325 mg PO DAILY 11/03/23 11/06/23 History Latanoprost [Latanoprost 0.005%] 1 drop BOTH EYES DAILY 11/03/23 11/06/23 History Allergies Allergy/AdvReac Type Severity Reaction Status Date / Time rivaroxaban [From Xarelto] AdvReac "internal Verified 11/20/23 23:59 bleeding" Physical Exam Vitals: Vital Signs Temp Pulse Resp BP Pulse Ox 11/21/23 07:28 84 16 137/73 99 11/21/23 07:00 78 15 187/73 98 11/21/23 06:00 82 25 H 187/73 98 11/21/23 05:30 90 16 187/73 96 11/21/23 05:00 98 16 182/79 98 11/21/23 04:55 98.1 F 100 18 182/79 96 11/21/23 04:30 103 H 31 H 176/78 98 11/21/23 04:00 101 H 17 160/65 98 11/21/23 03:30 87 13 160/65 98 11/21/23 02:30 91 27 H 159/59 98 11/21/23 01:33 98 41 H 157/60 99 11/20/23 23:47 101 H 18 176/65 95 Intake and Output 11/20/23 11/21/23 11/21/23 22:59 06:59 14:59 Other: Weight 58.967 kg Head normocephalic Neck supple Lungs clear to auscultation bilaterally no wheezing or crackles Heart regular rate and rhythm S1-S2, no rub or gallop Abdomen is soft nontender nondistended positive bowel sounds no hepatosplenomegaly Extremities right greater toe gangrenous black. Erythema noted around foot Neuro alert and orientated to 3 Results CBC & Chem 7: 11/21/23 00:26 11/21/23 00:26 Labs: Abnormal Lab Results - Last 24 Hours (Table) 11/20/23 11/21/23 11/21/23 Range/Units 23:48 00:26 00:26 WBC 10.8 H (3.8-10.6) k/uL RBC 3.85 L (4.30-5.90) m/uL Hgb 10.5 L (13.0-17.5) gm/dL Hct 32.6 L (39.0-53.0) % RDW 17.6 H (11.5-15.5) % Neutrophils # 9.6 H (1.3-7.7) k/uL Lymphocytes # 0.4 L (1.0-4.8) k/uL APTT 21.8 L (22.0-30.0) sec Chloride (98-107) mmol/L Glucose (74-99) mg/dL POC Glucose (mg/dL) 125 H (70-110) mg/dL Plasma Lactic Acid Mike (0.7-2.0) mmol/L 11/21/23 11/21/23 Range/Units 00:26 00:26 WBC (3.8-10.6) k/uL RBC (4.30-5.90) m/uL Hgb (13.0-17.5) gm/dL Hct (39.0-53.0) % RDW (11.5-15.5) % Neutrophils # (1.3-7.7) k/uL Lymphocytes # (1.0-4.8) k/uL APTT (22.0-30.0) sec Chloride 108 H (98-107) mmol/L Glucose 123 H (74-99) mg/dL POC Glucose (mg/dL) (70-110) mg/dL Plasma Lactic Acid Mike 2.9 H* (0.7-2.0) mmol/L Assessment and Plan Assessment: 1. Frequent falls 2. Right hip pain secondary to above 3. Right greater toe gangrene is with elevated lactic acid 4. History of hyperlipidemia 5. History of essential hypertension 6. History of osteoarthritis 7. History of peripheral vascular disease with multiple stents in leg At this time patient will be admitted DVT prophylaxis Lovenox. GI prophylaxis Protonix Patient started on IV antibiotics Vascular, infectious disease and orthopedic service is consulted Repeat labs ordered Time with Patient: Greater than 30 (Greater than 60% of the total time spent in counseling and coordination of care)
--- NOTE | 2023-11-21 13:21 | P.GSCN ---
History of Present Illness Consult date: 11/21/23 Reason for Consult: right toe ischemia History of present illness: 83-year-old gentleman with known history of peripheral arterial disease, prev ious right femoral to popliteal bypass with right groin infection requiring debridement and removal of the bypass as well as obturator bypass at that time. That has since occluded and he was recently seen and had angiograms which demonstrated no flow below the knee. He has been seen in the office and discussions have been made with him and his son for possible amputation which he was scheduled later this month. Currently he has been seen in the emergency department secondary to a fall. He does not know why he is in the hospital and according to the emergency department evaluation he has been having some difficulty with confusion. His right leg is still causing him discomfort and states that he is unable to walk due to pain behind his knee as well as his foot. He denies any fevers, chills, chest pain or shortness of breath Review of Systems All systems: negative (Negative unless mentioned in the HPI or past medical history) Past Medical History Past Medical History: Eye Disorder, Hyperlipidemia, Hypertension, Osteoarthritis (OA), Skin Disorder, Vascular Disorder Additional Past Medical History / Comment(s): Sciatica, PVD, GLAUCOMA, has had double vision a few times, no diagnosis. frequent leg pain-can't walk far, big toenail off foot currently History of Any Multi-Drug Resistant Organisms: MRSA Year Discovered:: 08/24/23 MDRO Source:: Groin Past Surgical History: Heart Catheterization, Heart Catheterization With Stent, Orthopedic Surgery Additional Past Surgical History / Comment(s): 3 stents in left leg, angioplasty bilateral legs, aortogram, bilateral cataracts, FEMPOP BYPASS LEFT LEG -FAILED, cysts removed from back and chest. end of May 2023 had right femoral endarterectomy & femoral below knee insitu bypass, hematoma evacuation groin 2022 Past Anesthesia/Blood Transfusion Reactions: No Reported Reaction Date of Last Stent Placement:: 2016 Past Psychological History: No Psychological Hx Reported Smoking Status: Former smoker Past Alcohol Use History: None Reported Past Drug Use History: None Reported - Past Family History Mother Family Medical History: Diabetes Mellitus Father Family Medical History: Coronary Artery Disease (CAD), Rheumatoid Arthritis (RA) Additional Family Medical History / Comment(s): ARTERIAL SCLEROSIS Medications and Allergies Home Medications Medication Instructions Recorded Confirmed Type RX: Dorzolamide/Timolol/Pf [Cosopt 1 drop BOTH EYES BID 03/18/17 11/06/23 History Pf 2%/0.5% Ophth Droperette] RX: Simvastatin [Zocor] 40 mg PO DAILY 12/06/20 11/06/23 History RX: hydroCHLOROthiazide 12.5 mg PO DAILY 12/06/20 11/06/23 History [Hydrodiuril] RX: HYDROcodone/APAP 10-325MG 1 tab PO Q4H PRN 03/14/21 11/06/23 History [[place] 10-325] RX: Aspirin EC [Ecotrin Low Dose] 81 mg PO DAILY 09/01/23 11/06/23 History RX: Clopidogrel Bisulfate [Plavix] 75 mg PO DAILY 09/01/23 11/06/23 History RX: Gabapentin 300 mg PO TID 3 Days #9 cap 10/11/23 11/06/23 Rx RX: methocarbamoL 750 mg PO TID PRN #12 tablet 10/28/23 11/06/23 Rx Ergocalciferol [Vitamin D2 (1250 1,250 mcg PO DAILY 11/03/23 11/06/23 History Mcg = 17525 Iu)] Ferrous Sulfate [Feosol] 325 mg PO DAILY 11/03/23 11/06/23 History Latanoprost [Latanoprost 0.005%] 1 drop BOTH EYES DAILY 11/03/23 11/06/23 History Allergies Allergy/AdvReac Type Severity Reaction Status Date / Time rivaroxaban [From Xarelto] AdvReac "internal Verified 11/21/23 13:10 bleeding" Surgical - Exam Vital Signs Pulse Resp BP Pulse Ox 101 H 18 176/65 95 11/20/23 23:47 11/20/23 23:47 11/20/23 23:47 11/20/23 23:47 Nonpalpable DP or PT pulse on the right. Ischemic changes noted at the great toe. No tenderness palpation at the calf. Contracture noted at the right knee and patient is unable to extend. Nonpalpable DP or PT pulse on the left. Better capillary refill at the foot. Better range of motion noted. - General well developed, well nourished - Eyes PERRL - ENT normal pinna, normal nares - Neck no masses, no bruits - Abdomen Abdomen: soft, non tender - Psychiatric oriented to time, oriented to person, oriented to place, speech is normal Results - Labs 11/21/23 00:26 11/21/23 00:26 Abnormal Lab Results - Last 24 Hours (Table) 11/20/23 11/21/23 11/21/23 Range/Units 23:48 00:26 00:26 WBC 10.8 H (3.8-10.6) k/uL RBC 3.85 L (4.30-5.90) m/uL Hgb 10.5 L (13.0-17.5) gm/dL Hct 32.6 L (39.0-53.0) % RDW 17.6 H (11.5-15.5) % Neutrophils # 9.6 H (1.3-7.7) k/uL Lymphocytes # 0.4 L (1.0-4.8) k/uL APTT 21.8 L (22.0-30.0) sec Chloride (98-107) mmol/L Glucose (74-99) mg/dL POC Glucose (mg/dL) 125 H (70-110) mg/dL Plasma Lactic Acid Mike (0.7-2.0) mmol/L 11/21/23 11/21/23 Range/Units 00:26 00:26 WBC (3.8-10.6) k/uL RBC (4.30-5.90) m/uL Hgb (13.0-17.5) gm/dL Hct (39.0-53.0) % RDW (11.5-15.5) % Neutrophils # (1.3-7.7) k/uL Lymphocytes # (1.0-4.8) k/uL APTT (22.0-30.0) sec Chloride 108 H (98-107) mmol/L Glucose 123 H (74-99) mg/dL POC Glucose (mg/dL) (70-110) mg/dL Plasma Lactic Acid Mike 2.9 H* (0.7-2.0) mmol/L Diabetes panel 11/21/23 Range/Units 00:26 Sodium 140 (137-145) mmol/L Potassium 4.3 (3.5-5.1) mmol/L Chloride 108 H (98-107) mmol/L Carbon Dioxide 26 (22-30) mmol/L BUN 17 (9-20) mg/dL Creatinine 0.71 (0.66-1.25) mg/dL Glucose 123 H (74-99) mg/dL Calcium 8.8 (8.4-10.2) mg/dL AST 22 (17-59) U/L ALT 14 (4-49) U/L Alkaline Phosphatase 108 (38-126) U/L Total Protein 6.6 (6.3-8.2) g/dL Albumin 3.5 (3.5-5.0) g/dL Calcium panel 11/21/23 Range/Units 00:26 Calcium 8.8 (8.4-10.2) mg/dL Albumin 3.5 (3.5-5.0) g/dL Pituitary panel 11/21/23 Range/Units 00:26 Sodium 140 (137-145) mmol/L Potassium 4.3 (3.5-5.1) mmol/L Chloride 108 H (98-107) mmol/L Carbon Dioxide 26 (22-30) mmol/L BUN 17 (9-20) mg/dL Creatinine 0.71 (0.66-1.25) mg/dL Glucose 123 H (74-99) mg/dL Calcium 8.8 (8.4-10.2) mg/dL Adrenal panel 11/21/23 Range/Units 00:26 Sodium 140 (137-145) mmol/L Potassium 4.3 (3.5-5.1) mmol/L Chloride 108 H (98-107) mmol/L Carbon Dioxide 26 (22-30) mmol/L BUN 17 (9-20) mg/dL Creatinine 0.71 (0.66-1.25) mg/dL Glucose 123 H (74-99) mg/dL Calcium 8.8 (8.4-10.2) mg/dL Total Bilirubin 0.5 (0.2-1.3) mg/dL AST 22 (17-59) U/L ALT 14 (4-49) U/L Alkaline Phosphatase 108 (38-126) U/L Total Protein 6.6 (6.3-8.2) g/dL Albumin 3.5 (3.5-5.0) g/dL Assessment and Plan Assessment: Right lower extremity chronic ischemia Right great toe ischemic changes Peripheral arterial disease with critical limb ischemia on the right Confusion Recent fall Plan: No changes from a vascular standpoint at this time. Patient is still scheduled for right lower extremity amputation. Due to the fact that he is unable to extend his knee he may benefit from above-knee amputation which has been discussed with him in the past. Continue her medical management. If patient is still in the hospital at the time of his scheduled amputation we will then perform the amputation at that time. Thank you for the consultation.
[2023-11-21] MEDS: MORPHINE SULFATE 4 MG/ML SYRINGE IV PRN ×2 (13:58→20:00)
--- NOTE | 2023-11-21 15:13 | CT ---
EXAMINATION TYPE: CT hip RT wo con DATE OF EXAM: 11/21/2023 COMPARISON: Plain films from the same day HISTORY: right hip pain, fall CT DLP: 403.1 mGycm Automated exposure control for dose reduction was used. Unenhanced CT of the right hip was performed. FINDINGS: There is no evidence for displaced impacted fracture of the right hip or visualized portions of the r ight hemipelvis. Other degenerative narrowing of the right hip joint space with acetabular spurring. Small joint effusion. No soft tissue mass is seen. IMPRESSION: NO EVIDENCE OF FRACTURE OR DISLOCATION.
[2023-11-21] MEDS: PIPERACILLIN-TAZOBACTAM 3.375 GM in SODIUM CHLORIDE 0.9% 100 ML IVPB SCH (16:40)
[2023-11-21] MEDS ORDERED: methocarbamoL 750 MG TAB PO PRN (21:52)
[2023-11-22] MEDS: LATANOPROST 0.005% OPHTH DROPS 2.5 ML BTL BOTH EYES SCH ×2 (00:19→21:00)
[2023-11-22] MEDS: MORPHINE SULFATE 4 MG/ML SYRINGE IV PRN ×2 (00:20→07:31)
[2023-11-22] MEDS: PIPERACILLIN-TAZOBACTAM 3.375 GM in SODIUM CHLORIDE 0.9% 100 ML IVPB SCH ×4 (00:20→23:14)
--- NOTE | 2023-11-22 03:23 | P.CONS ---
History of Present Illness - Reason for Consult Consult date: 11/21/23 Gangrenous toe Requesting physician: Blake Barber - Chief Complaint Weakness and discoloration of his right big toe x days - History of Present Illness This is a telehealth visit Patient is a 83-year-old male with a past medical history significant for hypertension hyperlipidemia osteoarthritis also with a history of peripheral arterial disease status post right femoral to popliteal bypass subsequently did have a right groin infection requiring debridement an removald bypass graft patient apparently has been dealing with the right big toe discoloration and gangrene that apparently has been going on for few weeks and apparently the patient is scheduled for amputation in the outpatient setting patient has been brought into the hospital after apparently patient did have a fall and the patient was noted to be slightly more confused apparently the patient did have a few falls over the last 2 days before the patient has been brought to the hospital has been complaining of pain to the right hip and thigh area and left shoulder no history of any loss of consciousness no nausea no vomiting no abdominal pain or any diarrhea on presentation to the hospital the patient was afebrile and no fever has been recorded subsequently patient was tachycardic but not hypotensive or hypoxic and no need for supplemental oxygen patient did have white count of 10.8 with a left shift creatinine 0.71 lactic acid was elevated liver enzymes are normal urine has been negative chest x-ray no evidence for acute cardiopulmonary disease patient did have a hip CT no evidence for fracture or dislocation patient was started on Zosyn infectious disease was consulted regarding gangrenous toe and concerning for cellulitis Review of Systems Positive point and negatives has been mentioned in the HPI, complete review of systems was performed and all other systems are negative Past Medical History Past Medical History: Eye Disorder, Hyperlipidemia, Hypertension, Osteoarthritis (OA), Skin Disorder, Vascular Disorder Additional Past Medical History / Comment(s): Sciatica, PVD, GLAUCOMA, has had double vision a few times, no diagnosis. frequent leg pain-can't walk far, big toenail off foot currently History of Any Multi-Drug Resistant Organisms: MRSA Year Discovered:: 08/24/23 MDRO Source:: Groin Past Surgical History: Heart Catheterization, Heart Catheterization With Stent, Orthopedic Surgery Additional Past Surgical History / Comment(s): 3 stents in left leg, angioplasty bilateral legs, aortogram, bilateral cataracts, FEMPOP BYPASS LEFT LEG -FAILED, cysts removed from back and chest. end of May 2023 had right femoral endarterectomy & femoral below knee insitu bypass, hematoma evacuation groin 2022 Past Anesthesia/Blood Transfusion Reactions: No Reported Reaction Date of Last Stent Placement:: 2016 Past Psychological History: No Psychological Hx Reported Smoking Status: Former smoker Past Alcohol Use History: None Reported Past Drug Use History: None Reported - Past Family History Mother Family Medical History: Diabetes Mellitus Father Family Medical History: Coronary Artery Disease (CAD), Rheumatoid Arthritis (RA) Additional Family Medical History / Comment(s): ARTERIAL SCLEROSIS Medications and Allergies Home Medications Medication Instructions Recorded Confirmed Type Dorzolamide/Timolol/Pf [Cosopt Pf 1 drop BOTH EYES BID 03/18/17 11/21/23 History 2%/0.5% Ophth Droperette] Simvastatin [Zocor] 40 mg PO HS 12/06/20 11/21/23 History hydroCHLOROthiazide [Hydrodiuril] 12.5 mg PO DAILY 12/06/20 11/21/23 History HYDROcodone/APAP 10-325MG [[place] 1 tab PO BID PRN 03/14/21 11/21/23 History 10-325] Clopidogrel Bisulfate [Plavix] 75 mg PO DIRECTED 09/01/23 11/21/23 History methocarbamoL 750 mg PO TID PRN #12 tablet 10/28/23 11/21/23 Rx Ferrous Sulfate [Iron (65 MG 325 mg PO DAILY 11/03/23 11/21/23 History Elemental)] Latanoprost [Latanoprost 0.005%] 1 drop BOTH EYES HS 11/03/23 11/21/23 History Gabapentin 600 mg PO TID 11/21/23 11/21/23 History Pantoprazole [Protonix] 40 mg PO [id number] tab 11/30/23 Rx Allergies Allergy/AdvReac Type Severity Reaction Status Date / Time rivaroxaban [From Xarelto] AdvReac "internal Verified 11/21/23 13:10 bleeding" Physical Exam Vitals: Vital Signs Temp Pulse Resp BP Pulse Ox 11/21/23 16:48 90 16 155/53 96 11/21/23 15:30 21 165/67 97 11/21/23 15:00 75 28 H 173/60 98 11/21/23 14:30 66 18 173/60 97 11/21/23 14:00 71 16 168/48 99 11/21/23 12:00 61 17 157/57 98 11/21/23 11:30 98 24 157/57 97 11/21/23 11:00 75 12 151/72 98 11/21/23 10:36 80 19 151/72 99 11/21/23 07:28 84 16 137/73 99 11/21/23 07:00 78 15 187/73 98 11/21/23 06:00 82 25 H 187/73 98 11/21/23 05:30 90 16 187/73 96 11/21/23 05:00 98 16 182/79 98 11/21/23 04:55 98.1 F 100 18 182/79 96 11/21/23 04:30 103 H 31 H 176/78 98 11/21/23 04:00 101 H 17 160/65 98 11/21/23 03:30 87 13 160/65 98 11/21/23 02:30 91 27 H 159/59 98 11/21/23 01:33 98 41 H 157/60 99 11/20/23 23:47 101 H 18 176/65 95 Intake and Output 11/21/23 11/21/23 11/21/23 06:59 14:59 22:59 Other: Weight 58.967 kg Elderly male lying in bed in no distress Respiratory system unlabored breathing decreased breath sound the base Heart S1-S2 regular Abdominal soft no tenderness Extremities no edema feet Right big toe is necrotic minimal surrounding redness no drainage was noticed Exam completed with the help of [employer] Results CBC & Chem 7: 11/30/23 03:59 11/30/23 03:59 Labs: Abnormal Lab Results - Last 24 Hours (Table) 11/20/23 11/21/23 11/21/23 Range/Units 23:48 00:26 00:26 WBC 10.8 H (3.8-10.6) k/uL RBC 3.85 L (4.30-5.90) m/uL Hgb 10.5 L (13.0-17.5) gm/dL Hct 32.6 L (39.0-53.0) % RDW 17.6 H (11.5-15.5) % Neutrophils # 9.6 H (1.3-7.7) k/uL Lymphocytes # 0.4 L (1.0-4.8) k/uL APTT 21.8 L (22.0-30.0) sec Chloride (98-107) mmol/L Glucose (74-99) mg/dL POC Glucose (mg/dL) 125 H (70-110) mg/dL Plasma Lactic Acid Mike (0.7-2.0) mmol/L 11/21/23 11/21/23 Range/Units 00:26 00:26 WBC (3.8-10.6) k/uL RBC (4.30-5.90) m/uL Hgb (13.0-17.5) gm/dL Hct (39.0-53.0) % RDW (11.5-15.5) % Neutrophils # (1.3-7.7) k/uL Lymphocytes # (1.0-4.8) k/uL APTT (22.0-30.0) sec Chloride 108 H (98-107) mmol/L Glucose 123 H (74-99) mg/dL POC Glucose (mg/dL) (70-110) mg/dL Plasma Lactic Acid Mike 2.9 H* (0.7-2.0) mmol/L Assessment and Plan (1) Cellulitis of right foot Status: Acute Code(s): L03.115 - CELLULITIS OF RIGHT LOWER LIMB SNOMED Code(s): 50478810619131934 (2) Gangrene of toe of right foot Status: Acute Code(s): I96 - GANGRENE, NOT ELSEWHERE CLASSIFIED SNOMED Code(s): 27785752056416562 Plan: 1patient presented to hospital with weakness and did have multiple falls also noticed to be slightly confused patient is not running any fever white count is not significantly elevated but did have a left shift and the patient did have a right big toe gangrene more likely from underlying peripheral arterial disease minimal surrounding redness and a component of secondary cellulitis not entirely excluded 2-we will check inflammatory markers 3-continue with the Zosyn while waiting for the workup to be completed We will follow on clinical condition and cultures to further adjust medication if needed Thank you for this consultation we will follow the patient along with you Dictation was produced using [employer] dictation software. please excuse any grammatical, word or spelling errors. Time with Patient: Greater than 30
[2023-11-22] MEDS: SODIUM CHLORIDE 0.9% 1,000 ML IV SCH ×2 (05:27→21:00)
[2023-11-22] MEDS: PANTOPRAZOLE 40 MG TABLET PO SCH (06:19)
[2023-11-22] MEDS: ENOXAPARIN 40 MG/0.4 ML SYRINGE SQ SCH (07:36)
[2023-11-22] MEDS: FERROUS SULFATE 325 MG TAB PO SCH (07:36)
[2023-11-22] MEDS: GABAPENTIN 300 MG CAP PO SCH ×3 (07:36→21:00)
[2023-11-22] MEDS: hydroCHLOROthiazide 12.5 MG CAP PO SCH (07:37)
[2023-11-22 09:09] LABS: ALT 10 U/L (10-49); AST 26 U/L (14-35); Albumin 3.5 g/dL (3.8-4.9); Albumin/Globulin Ratio 1.35 Ratio (1.60-3.17); Alkaline Phosphatase 104 U/L (41-126); BUN/Creat Ratio 10.88 Ratio (12.00-20.00); Blood Urea Nitrogen 8.7 mg/dL (9.0-27.0); Calcium 9.2 mg/dL (8.7-10.3); Carbon Dioxide 24.4 mmol/L (21.6-31.8); Chloride 105 mmol/L (96-109); Globulin 2.6 g/dL (1.6-3.3); Glucose 106 mg/dL (70-110); Sodium 142 mmol/L (135-145); Total Bilirubin 0.4 mg/dL (0.3-1.2); Total Protein 6.1 g/dL (6.2-8.2)
--- NOTE | 2023-11-22 09:32 | P.HPOR ---
History of Present Illness H&P Date: 11/22/23 Chief Complaint: Right lower extremity pain status post fall 2 days ago Patient's a 83-year-old male who seen and examined today at bedside. The patient was brought to the hospital after he sustained a fall 2 days ago. He says that he has had some increased pain in his right hip and right knee. He has had long-term pain at his right lower extremity over the past year pa rticularly around his knee ankle and foot. He says he has great copiously with walking and trying to transfer and move around. He has long history with vascular issues and has been seen regularly with Dr. Lees and they're scheduled for a possible amputation later this month due to his severe vascular pathology. Denies any fevers chills. Denies any headache or neck pain. Denies any back pain. Denies a problems with his upper extremity is. He says his primary issues around his right hip. He is unable straighten his right leg. Review of Systems Significant vascular pathology with planned amputation. Difficulty ambulating which has been chronic over the past year. He has some confusion but discusses appropriately. He denies any fevers chills. Denies any chest pain chest breath. Denies any pains in his upper extremities or his neck. Denies any new no low back pain or left lower extremity pain Past Medical History Past Medical History: Eye Disorder, Hyperlipidemia, Hypertension, Osteoarthritis (OA), Skin Disorder, Vascular Disorder Additional Past Medical History / Comment(s): Sciatica, PVD, GLAUCOMA, has had double vision a few times, no diagnosis. frequent leg pain-can't walk far, big toenail off foot currently History of Any Multi-Drug Resistant Organisms: MRSA Date of last positivie culture/infection: 08/24/23 MDRO Source:: Groin Past Surgical History: Heart Catheterization, Heart Catheterization With Stent, Orthopedic Surgery Additional Past Surgical History / Comment(s): 3 stents in left leg, angioplasty bilateral legs, aortogram, bilateral cataracts, FEMPOP BYPASS LEFT LEG -FAILED, cysts removed from back and chest. end of May 2023 had right femoral endarterectomy & femoral below knee insitu bypass, hematoma evacuation groin 2022 Past Anesthesia/Blood Transfusion Reactions: No Reported Reaction Date of Last Stent Placement:: 2016 Past Psychological History: No Psychological Hx Reported Smoking Status: Former smoker Past Alcohol Use History: None Reported Past Drug Use History: None Reported - Past Family History Mother Family Medical History: Diabetes Mellitus Father Family Medical History: Coronary Artery Disease (CAD), Rheumatoid Arthritis (RA) Additional Family Medical History / Comment(s): ARTERIAL SCLEROSIS Medications and Allergies Home Medications Medication Instructions Recorded Confirmed Type Dorzolamide/Timolol/Pf [Cosopt Pf 1 drop BOTH EYES BID 03/18/17 11/21/23 History 2%/0.5% Ophth Droperette] Simvastatin [Zocor] 40 mg PO HS 12/06/20 11/21/23 History hydroCHLOROthiazide [Hydrodiuril] 12.5 mg PO DAILY 12/06/20 11/21/23 History HYDROcodone/APAP 10-325MG [Garfield 1 tab PO BID PRN 03/14/21 11/21/23 History 10-325] Clopidogrel Bisulfate [Plavix] 75 mg PO DIRECTED 09/01/23 11/21/23 History methocarbamoL 750 mg PO TID PRN #12 tablet 10/28/23 11/21/23 Rx Ferrous Sulfate [Feosol] 325 mg PO DAILY 11/03/23 11/21/23 History Latanoprost [Latanoprost 0.005%] 1 drop BOTH EYES HS 11/03/23 11/21/23 History Gabapentin 600 mg PO TID 11/21/23 11/21/23 History Allergies Allergy/AdvReac Type Severity Reaction Status Date / Time rivaroxaban [From Xarelto] AdvReac "internal Verified 11/21/23 13:10 bleeding" Physical Examination Osteopathic Statement: *. No significant issues noted on an osteopathic structural exam other than those noted in the History and Physical/Consult. - Hip right Gait: other (Currently he is not able to ambulate. He has a significant tract contracture at his posterior right knee and his right hip. His motor 30 flexion contracture right knee and at his right hip) Tenderness with palpation: other (There is some diffuse tenderness around his hip which seems mainly due to spasm. There is no point tenderness.) Pain with motion: other (Significant stiffness with any range of motion around his right hip. His left hip is nontender. His abdomen soft. His back is nontender. His neck is good motion. His upper trapezius have full active and passive range of motion) - Ankle & Foot right Ankle appearance: other (There is some chronic skin changes below his knee. He has gangrenous great toe. His foot is cool overall and has diminished pulses) Results - Labs Labs: Abnormal Lab Results - Last 24 Hours (Table) 11/22/23 Range/Units 06:19 Anion Gap 12.60 H (4.00-12.00) mmol/L BUN 8.7 L (9.0-27.0) mg/dL BUN/Creatinine Ratio 10.88 L (12.00-20.00) Ratio C-Reactive Protein 10.30 H (0.00-0.80) mg/dL Total Protein 6.1 L (6.2-8.2) g/dL Albumin 3.5 L (3.8-4.9) g/dL Albumin/Globulin Ratio 1.35 L (1.60-3.17) Ratio H & H 11/21/23 Range/Units 00:26 Hgb 10.5 L (13.0-17.5) gm/dL Hct 32.6 L (39.0-53.0) % Coagulation 11/21/23 Range/Units 00:26 INR 1.1 (<1.2) Result Diagrams: 11/21/23 00:26 11/22/23 06:19 - Diagnostic results Hip x-ray: report reviewed, image reviewed Hip CT: report reviewed, image reviewed (Imaging of his pelvis and hips are reviewed. There is some mild to moderate osteoarthritis bilateral hips worse on the right and left. There is no acute new fracture. 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 Fortunately he does not have any evidence of new fracture or dislocation. We do not plan any surgical intervention for him. He has severe vascular pathology and has been having appropriate workup and treatment of vascular surgery and is scheduled for further treatment and possible amputation upcoming. From orthopedic standpoint we do not have any plans for surgery. He has significant joint contractures and limited ambulation and can have some benefit with focused physical therapy to maintain his mobility and internal potentially to provide some stretching to help with his contractures and his ability to transfer and mobility. I tried to discuss this with him. We do not have any further plans from orthopedic standpoint for imaging or surgi anni intervention and he can follow-up as needed on an outpatient basis. He should continue with his therapy for maintaining his appropriate muscular tone stretching hand joint mobility.
[2023-11-22 09:45] LABS: Basophils # (A) 0.06 X 10*3/uL (0.00-0.10); Basophils % (A) 0.6 %; Eosinophils # (A) 0.31 X 10*3/uL (0.04-0.35); Eosinophils % (A) 3.3 %; HCT 32.6 % (39.6-50.0); Lymphocytes # (A) 0.59 X 10*3/uL (0.90-5.00); Lymphocytes % (A) 6.3 %; MCH 25.8 pg (27.0-32.0); MCHC 30.7 g/dL (32.0-37.0); MCV 84.2 FL (80.0-97.0); Mean Platelet Volume 9.8 FL (9.5-12.2); Monocytes # (A) 0.69 X 10*3/uL (0.20-1.00); Monocytes % (A) 7.4 %; NRBC Per 100 WBC 0 X 10*3/uL (0.00-0.01); Neutrophils # (A) 7.65 X 10*3/uL (1.80-7.70); Neutrophils % (A) 82.2 %; Platelet Count 342 X 10*3/uL (140-440); RBC 3.87 X 10*6/uL (4.40-5.60); WBC 9.32 X 10*3/uL (4.50-10.00)
[2023-11-22 10:08] LABS: Erythrocyte Sedimentation Rate 62 mm/Hr (0-20)
--- NOTE | 2023-11-22 11:36 | P.PN ---
Subjective Progress Note Date: 11/22/23 This is an 83-year-old male patient who presented to the ER to be evaluated after sustaining a fall according to records patient was found by a neighbor and EMS was called. Patient reports that he's been falling frequently over the past few days upon arrival head and cervical CT completed showing no evidence of acute intracranial abnormality partially opacified right mastoid air cells age indeterminant. No acute fracture seen and cervical spine degenerative changes. Chest x-ray completed showing no evidence of acute cardiopulmonary disease. Shoulder x-ray completed showing no evidence of acute fracture or dislocation. Pelvis x-ray completed showing mild varus angulation the right proximal tibial versus positional appearance no definitive fracture asymmetric increased opacity superomedial thigh soft tissue versus overlapping structures. Femur x-ray completed showing varices angulation the proximal right femur versus positional appearance note definitive fracture. Patient has past medical history of gangrene is right toe in which she has planned amputation on the . Additional medical history includes hyperlipidemia, hypertension, sciatica, vascular disease with 3 stents in left leg and ex-smoker. At this time patient will be admitted patient noted to have elevated lactic acid will start patient on IV Zosyn and consult vascular surgery along with infectious disease. Current vital signs temp 98.1, heart rate 84, respiratory rate 16, blood pressure 137/73 with pulse ox 99% on room air. At this time patient denies chest pain or shortness breath. Patient denies nausea vomiting or diarrhea. Patient denies any urinary burning or frequency On 11/22/2023 patient was seen and examined on the medical floor he is somnolent responsive in no apparent distress, he is complaining of lower extremities pain otherwise he denies any complaints, there is no fever or chills no headache or dizziness no chest pain no shortness of breath no cough no nausea or vomiting no abdominal pain no diarrhea and no urinary symptoms, vital exam reveals a temperature of 98 pulse 61 respiration 18 blood pressure 174/67 pulse ox 98% on room air white blood count is down to 9.3 hemoglobin 10.0 platelet count 342 creatinine 0.8 input from orthopedic and vascular surgery reviewed Objective - Vital Signs Vital signs: Vital Signs Temp 98 F 11/22/23 07:07 Pulse 61 11/22/23 07:07 Resp 18 11/22/23 07:07 BP 174/67 11/22/23 07:07 Pulse Ox 98 11/22/23 07:07 FiO2 Intake & Output 11/21/23 11/22/23 11/22/23 18:59 06:59 18:59 Weight 58.967 kg Other: Voiding Method External Catheter # Voids 1 - Exam Head normocephalic and atraumatic Neck supple no JVD no goiter Lungs clear to auscultation bilaterally no wheezing or crackles Heart regular rate and rhythm S1-S2, no rub or gallop Abdomen is soft nontender nondistended positive bowel sounds no hepatosplenomegaly Extremities right greater toe gangrenous black. Erythema noted around foot Neuro alert and orientated to 3 - Labs CBC & Chem 7: 11/22/23 06:19 11/22/23 06:19 Labs: Abnormal Lab Results - Last 24 Hours (Table) 11/22/23 Range/Units 06:19 Anion Gap 12.60 H (4.00-12.00) mmol/L BUN 8.7 L (9.0-27.0) mg/dL BUN/Creatinine Ratio 10.88 L (12.00-20.00) Ratio C-Reactive Protein 10.30 H (0.00-0.80) mg/dL Total Protein 6.1 L (6.2-8.2) g/dL Albumin 3.5 L (3.8-4.9) g/dL Albumin/Globulin Ratio 1.35 L (1.60-3.17) Ratio Assessment and Plan Assessment: 1. Frequent falls 2. Right hip pain secondary to above 3. Right greater toe gangrene is with elevated lactic acid 4. History of hyperlipidemia 5. History of essential hypertension 6. History of osteoarthritis 7. History of peripheral vascular disease with multiple stents in leg At this time patient will be admitted DVT prophylaxis Lovenox. GI prophylaxis Protonix Patient started on IV antibiotics Vascular, infectious disease and orthopedic service is consulted Repeat labs ordered
[2023-11-22] MEDS: HYDROcodone/APAP 10-325MG 1 EACH TAB PO PRN (15:35)
[2023-11-22] MEDS: ATORVASTATIN 40 MG TAB PO SCH (21:00)
--- NOTE | 2023-11-23 01:40 | P.PN ---
Subjective Progress Note Date: 11/22/23 Principal diagnosis: Reason for follow-up is right big toe gangrene and cellulitis Patient is a 83-year-old male with a past medical history significant for hypertension hyperlipidemia osteoarthritis also with a history of peripheral arterial disease status post right femoral to popliteal bypass subsequently did have a right groin infection requiring debridement an removald bypass graft patient apparently has been dealing with the right big toe discoloration and mitch wei, presented to the hospital with weakness and fall and there was concern for possible cellulitis to the right big toe gangrene site. On today's evaluation that is 11/22/2023 the patient continues to be afebrile, the patient is breathing comfortably on room air patient not a very good historian when asked specifically denies any chest pain or any worsening pain to the right big toe and no drainage. Patient white count is down to 9.32 creatinine is 0.8 sed rate is 62 CRP is 10.30 Objective - Vital Signs Vital signs: Vital Signs Temp 98 F 11/22/23 07:07 Pulse 61 11/22/23 07:07 Resp 18 11/22/23 07:07 BP 174/67 11/22/23 07:07 Pulse Ox 98 11/22/23 07:07 FiO2 Intake & Output 11/21/23 11/22/23 11/22/23 18:59 06:59 18:59 Weight 58.967 kg Other: Voiding Method External Catheter # Voids 1 - Exam Elderly male lying in bed in no distress Respiratory system unlabored breathing decreased breath sound the base Heart S1-S2 regular Abdominal soft no tenderness Right big toe is necrotic no drainage Exam completed with the help of COIN MACHINE COLLECTOR SUPERVISOR - Labs CBC & Chem 7: 11/22/23 06:19 11/22/23 06:19 Labs: Abnormal Lab Results - Last 24 Hours (Table) 11/22/23 11/22/23 Range/Units 06:19 06:19 RBC 3.87 L (4.40-5.60) X 10*6/uL Hgb 10.0 L (13.0-17.0) g/dL Hct 32.6 L (39.6-50.0) % MCH 25.8 L (27.0-32.0) pg MCHC 30.7 L (32.0-37.0) g/dL RDW 18.0 H (11.5-14.5) % Lymphocytes # 0.59 L (0.90-5.00) X 10*3/uL ESR 62 H (0-20) mm/Hr Anion Gap 12.60 H (4.00-12.00) mmol/L BUN 8.7 L (9.0-27.0) mg/dL BUN/Creatinine Ratio 10.88 L (12.00-20.00) Ratio C-Reactive Protein 10.30 H (0.00-0.80) mg/dL Total Protein 6.1 L (6.2-8.2) g/dL Albumin 3.5 L (3.8-4.9) g/dL Albumin/Globulin Ratio 1.35 L (1.60-3.17) Ratio Assessment and Plan (1) Gangrene of toe of right foot Current Visit: Yes Status: Acute Code(s): I96 - GANGRENE, NOT ELSEWHERE CLASSIFIED SNOMED Code(s): 72811399740480634 (2) Cellulitis of right foot Current Visit: Yes Status: Acute Code(s): L03.115 - CELLULITIS OF RIGHT LOWER LIMB SNOMED Code(s): 29364660007145924 Plan: 1patient presented to hospital with weakness and did have multiple falls also noticed to be slightly confused patient is not running any fever white count is not significantly elevated but did have a left shift and the patient did have a right big toe gangrene more likely from underlying peripheral arterial disease minimal surrounding redness and a component of secondary cellulitis not entirely excluded 2-patient did have elevated inflammatory markers 3-patient to continue with the Zosyn while waiting for the workup to be completed Dictation was produced using [employer] dictation software. please excuse any grammatical, word or spelling errors. Time with Patient: Less than 30
[2023-11-23] MEDS: MORPHINE SULFATE 4 MG/ML SYRINGE IV PRN (03:26)
[2023-11-23] MEDS: PANTOPRAZOLE 40 MG TABLET PO SCH (06:30)
[2023-11-23 06:42] LABS: Anisocytosis Slight; Basophils % (A) 0 %; Eosinophils # (A) 0.5 k/uL (0-0.7); Eosinophils % (A) 5 %; HCT 35.9 % (39.0-53.0); HGB 11.3 gm/dL (13.0-17.5); Hypochromasia Moderate; Lymphocytes # (A) 0.8 k/uL (1.0-4.8); Lymphocytes % (A) 8 %; MCHC 31.4 g/dL (31.0-37.0); MCV 85.8 fL (80.0-100.0); Mean Platelet Volume 8.8; Monocytes # (A) 0.5 k/uL (0-1.0); Monocytes % (A) 6 %; Neutrophils # (A) 7.8 k/uL (1.3-7.7); Neutrophils % (A) 79 %; Platelet Count 294 k/uL (150-450); RBC 4.18 m/uL (4.30-5.90); RDW 17.2 % (11.5-15.5); WBC 9.9 k/uL (3.8-10.6)
[2023-11-23] MEDS: hydroCHLOROthiazide 12.5 MG CAP PO SCH (08:00)
[2023-11-23] MEDS: FERROUS SULFATE 325 MG TAB PO SCH (08:00)
[2023-11-23] MEDS: ENOXAPARIN 40 MG/0.4 ML SYRINGE SQ SCH (08:00)
[2023-11-23] MEDS: GABAPENTIN 300 MG CAP PO SCH ×3 (08:00→19:45)
[2023-11-23] MEDS: PIPERACILLIN-TAZOBACTAM 3.375 GM in SODIUM CHLORIDE 0.9% 100 ML IVPB SCH ×3 (08:00→23:25)
[2023-11-23] MEDS: HYDROcodone/APAP 10-325MG 1 EACH TAB PO PRN ×2 (08:13→15:59)
[2023-11-23] MEDS: SODIUM CHLORIDE 0.9% 1,000 ML IV SCH ×2 (09:15→19:46)
[2023-11-23 11:05] LABS: ALT 13 U/L (10-49); AST 27 U/L (14-35); Albumin 3.4 g/dL (3.8-4.9); Albumin/Globulin Ratio 1.26 Ratio (1.60-3.17); Alkaline Phosphatase 114 U/L (41-126); BUN/Creat Ratio 10.44 Ratio (12.00-20.00); Blood Urea Nitrogen 9.4 mg/dL (9.0-27.0); Calcium 9.1 mg/dL (8.7-10.3); Carbon Dioxide 26.5 mmol/L (21.6-31.8); Chloride 104 mmol/L (96-109); Globulin 2.7 g/dL (1.6-3.3); Glucose 111 mg/dL (70-110); Potassium 4.3 mmol/L (3.5-5.5); Sodium 141 mmol/L (135-145); Total Bilirubin 0.3 mg/dL (0.3-1.2); Total Protein 6.1 g/dL (6.2-8.2)
--- NOTE | 2023-11-23 13:04 | P.PN ---
Subjective Progress Note Date: 11/23/23 Principal diagnosis: Right lower extremity chronic ischemia with right great toe ischemic changes She was seen and examined as a follow-up. Sitting up in bed without any complaints. Knee is contracted. States he still has some right lower extremity pain at knee and foot. Objective - Vital Signs Vital signs: Vital Signs Temp 97.8 F 11/23/23 06:47 Pulse 70 11/23/23 06:47 Resp 17 11/23/23 06:47 BP 136/70 11/23/23 06:47 Pulse Ox 98 11/23/23 06:47 FiO2 Intake & Output 11/22/23 11/23/23 11/23/23 18:59 06:59 18:59 Output Total 500 250 Balance -500 -250 Output: Urine 500 250 Other: Voiding Method External Catheter External Catheter - Exam General appearance: The patient is alert, oriented, appears in no acute distress. HET: Head is normocephalic and atraumatic. Pupils are equal and reactive. Neck: Supple. Heart: Regular. Lungs: Equal expansion, normal respiratory effort. Abdomen: Soft, nondistended. Extremities: Nonpalpable DP or PT pulse on the right. Ischemic changes noted at the great toe. No tenderness palpation at the calf. Contracture noted at the right knee and patient is unable to extend. Nonpalpable DP or PT pulse on the left. Better capillary refill at the foot. Better range of motion noted. Neurological: No focal deficits noted. - Labs CBC & Chem 7: 11/23/23 05:33 11/23/23 05:33 Labs: Abnormal Lab Results - Last 24 Hours (Table) 11/23/23 11/23/23 Range/Units 05:33 05:33 RBC 4.18 L (4.30-5.90) m/uL Hgb 11.3 L (13.0-17.5) gm/dL Hct 35.9 L (39.0-53.0) % RDW 17.2 H (11.5-15.5) % Neutrophils # 7.8 H (1.3-7.7) k/uL Lymphocytes # 0.8 L (1.0-4.8) k/uL BUN/Creatinine Ratio 10.44 L (12.00-20.00) Ratio Glucose 111 H (70-110) mg/dL Total Protein 6.1 L (6.2-8.2) g/dL Albumin 3.4 L (3.8-4.9) g/dL Albumin/Globulin Ratio 1.26 L (1.60-3.17) Ratio Microbiology - Last 24 Hours (Table) 11/21/23 10:27 Blood Culture - Preliminary Blood Assessment and Plan Assessment: 1. Right lower extremity chronic ischemia 2. Right great toe ischemic changes 3. Peripheral arterial disease with critical limb ischemia on the right 4. Confusion 5. Recent fall Plan: No changes from a vascular standpoint at this time. Patient still scheduled for right lower extremity amputation. Due to the fact that he is unable to extend his knee he may benefit from above the amputation which has been discussed with him and patient is agreeable if that is what is needed. No urgency to amputation. He is scheduled for 11/27/2023, if patient is still in hospital will do at that time. The impression and plan of care has been dictated as directed. I performed a history and examination of this patient, discussed the same with the dictator. I agree with the dictator's note ,documented as a scribe. Any additional findings or plans will be noted.
--- NOTE | 2023-11-23 17:10 | P.PN ---
Subjective Progress Note Date: 11/23/23 This is an 83-year-old male patient who presented to the ER to be evaluated after sustaining a fall according to records patient was found by a neighbor and EMS was called. Patient reports that he's been falling frequently over the past few days upon arrival head and cervical CT completed showing no evidence of acute intracranial abnormality partially opacified right mastoid air cells age indeterminant. No acute fracture seen and cervical spine degenerative changes. Chest x-ray completed showing no evidence of acute cardiopulmonary disease. Shoulder x-ray completed showing no evidence of acute fracture or dislocation. Pelvis x-ray completed showing mild varus angulation the right proximal tibial versus positional appearance no definitive fracture asymmetric increased opacity superomedial thigh soft tissue versus overlapping structures. Femur x-ray completed showing varices angulation the proximal right femur versus positional appearance note definitive fracture. Patient has past medical history of gangrene is right toe in which she has planned amputation on the . Additional medical history includes hyperlipidemia, hypertension, sciatica, vascular disease with 3 stents in left leg and ex-smoker. At this time patient will be admitted patient noted to have elevated lactic acid will start patient on IV Zosyn and consult vascular surgery along with infectious disease. Current vital signs temp 98.1, heart rate 84, respiratory rate 16, blood pressure 137/73 with pulse ox 99% on room air. At this time patient denies chest pain or shortness breath. Patient denies nausea vomiting or diarrhea. Patient denies any urinary burning or frequency On 11/22/2023 patient was seen and examined on the medical floor he is somnolent responsive in no apparent distress, he is complaining of lower extremities pain otherwise he denies any complaints, there is no fever or chills no headache or dizziness no chest pain no shortness of breath no cough no nausea or vomiting no abdominal pain no diarrhea and no urinary symptoms, vital exam reveals a temperature of 98 pulse 61 respiration 18 blood pressure 174/67 pulse ox 98% on room air white blood count is down to 9.3 hemoglobin 10.0 platelet count 342 creatinine 0.8 input from orthopedic and vascular surgery reviewed On 11/23/2023 patient was seen and examined on the medical floor he is somnolent responsive in no apparent distress, he is complaining of lower extremities pain otherwise he denies any complaints, there is no fever or chills no headache or dizziness no chest pain no shortness of breath no cough no nausea or vomiting no abdominal pain no diarrhea and no urinary symptoms. Plan by vascular surgery to proceed with above knee amputation. infectious disease input reviewed Objective - Vital Signs Vital signs: Vital Signs Temp 97.7 F 11/23/23 13:42 Pulse 78 11/23/23 13:42 Resp 18 11/23/23 13:42 BP 132/71 11/23/23 13:42 Pulse Ox 99 11/23/23 13:42 FiO2 Intake & Output 11/22/23 11/23/23 11/23/23 18:59 06:59 18:59 Output Total 500 250 Balance -500 -250 Output: Urine 500 250 Other: Voiding Method External Catheter External Catheter - Exam Head normocephalic and atraumatic Neck supple no JVD no goiter Lungs clear to auscultation bilaterally no wheezing or crackles Heart regular rate and rhythm S1-S2, no rub or gallop Abdomen is soft nontender nondistended positive bowel sounds no hepatosplenomegaly Extremities right greater toe gangrenous black. Erythema noted around foot Neuro alert and orientated to 3 - Labs CBC & Chem 7: 11/23/23 05:33 11/23/23 05:33 Labs: Abnormal Lab Results - Last 24 Hours (Table) 11/23/23 11/23/23 Range/Units 05:33 05:33 RBC 4.18 L (4.30-5.90) m/uL Hgb 11.3 L (13.0-17.5) gm/dL Hct 35.9 L (39.0-53.0) % RDW 17.2 H (11.5-15.5) % Neutrophils # 7.8 H (1.3-7.7) k/uL Lymphocytes # 0.8 L (1.0-4.8) k/uL BUN/Creatinine Ratio 10.44 L (12.00-20.00) Ratio Glucose 111 H (70-110) mg/dL Total Protein 6.1 L (6.2-8.2) g/dL Albumin 3.4 L (3.8-4.9) g/dL Albumin/Globulin Ratio 1.26 L (1.60-3.17) Ratio Microbiology - Last 24 Hours (Table) 11/21/23 10:27 Blood Culture - Preliminary Blood Assessment and Plan Assessment: 1. Frequent falls 2. Right hip pain secondary to above 3. Right greater toe gangrene is with elevated lactic acid 4. History of hyperlipidemia 5. History of essential hypertension 6. History of osteoarthritis 7. History of peripheral vascular disease with multiple stents in leg At this time patient will be admitted DVT prophylaxis Lovenox. GI prophylaxis Protonix Patient started on IV antibiotics Vascular, infectious disease and orthopedic service is consulted Repeat labs ordered
[2023-11-23] MEDS: ATORVASTATIN 40 MG TAB PO SCH (19:45)
[2023-11-23] MEDS: LATANOPROST 0.005% OPHTH DROPS 2.5 ML BTL BOTH EYES SCH (19:45)
--- NOTE | 2023-11-23 23:00 | P.PN ---
Subjective Progress Note Date: 11/23/23 Principal diagnosis: Reason for follow-up is right big toe gangrene and cellulitis Patient is a 83-year-old male with a past medical history significant for hypertension hyperlipidemia osteoarthritis also with a history of peripheral arterial disease status post right femoral to popliteal bypass subsequently did have a right groin infection requiring debridement an removald bypass graft patient apparently has been dealing with the right big toe discoloration and mitch wei, presented to the hospital with weakness and fall and there was concern for possible cellulitis to the right big toe gangrene site. On today's evaluation that is 11/23/2023 the patient remains to be afebrile, patient is breathing comfortably on room air without need for supplemental oxygen, the patient denies having any chest pain no significant cough, no nausea vomiting no abdominal pain and no diarrhea has been complaining of pain to the right big toe but no worsening. Patient white count of 9.9, creatinine 0.9 blood cultures currently pending Objective - Vital Signs Vital signs: Vital Signs Temp 97.8 F 11/23/23 06:47 Pulse 70 11/23/23 06:47 Resp 17 11/23/23 06:47 BP 136/70 11/23/23 06:47 Pulse Ox 98 11/23/23 06:47 FiO2 Intake & Output 11/22/23 11/23/23 11/23/23 18:59 06:59 18:59 Output Total 500 250 Balance -500 -250 Output: Urine 500 250 Other: Voiding Method External Catheter External Catheter - Exam Elderly male lying in bed in no distress Respiratory system unlabored breathing decreased breath sound the base Heart S1-S2 regular Abdominal soft no tenderness Right big toe is necrotic no drainage Exam completed with the help of [facility] [employer] - Labs CBC & Chem 7: 11/23/23 05:33 11/23/23 05:33 Labs: Abnormal Lab Results - Last 24 Hours (Table) 11/23/23 Range/Units 05:33 RBC 4.18 L (4.30-5.90) m/uL Hgb 11.3 L (13.0-17.5) gm/dL Hct 35.9 L (39.0-53.0) % RDW 17.2 H (11.5-15.5) % Neutrophils # 7.8 H (1.3-7.7) k/uL Lymphocytes # 0.8 L (1.0-4.8) k/uL Microbiology - Last 24 Hours (Table) 11/21/23 10:27 Blood Culture - Preliminary Blood Assessment and Plan (1) Gangrene of toe of right foot Current Visit: Yes Status: Acute Code(s): I96 - GANGRENE, NOT ELSEWHERE CLASSIFIED SNOMED Code(s): 39690660373304833 (2) Cellulitis of right foot Current Visit: Yes Status: Acute Code(s): L03.115 - CELLULITIS OF RIGHT LOWER LIMB SNOMED Code(s): 02630279918309740 Plan: 1patient presented to hospital with weakness and did have multiple falls also noticed to be slightly confused patient is not running any fever white count is not significantly elevated but did have a left shift and the patient did have a right big toe gangrene more likely from underlying peripheral arterial disease minimal surrounding redness and a component of secondary cellulitis not entirely excluded 2-patient did have elevated inflammatory markers 3-patient to continue with the [place], possible plan for right [id number] amputation scheduled for 11/27/2023 Dictation was produced using [employer] dictation software. please excuse any grammatical, word or spelling errors. Time with Patient: Less than 30
[2023-11-24] MEDS: PIPERACILLIN-TAZOBACTAM 3.375 GM in SODIUM CHLORIDE 0.9% 100 ML IVPB SCH ×3 (08:43→23:15)
[2023-11-24] MEDS: hydroCHLOROthiazide 12.5 MG CAP PO SCH (08:44)
[2023-11-24] MEDS: GABAPENTIN 300 MG CAP PO SCH ×3 (08:44→21:21)
[2023-11-24] MEDS: ENOXAPARIN 40 MG/0.4 ML SYRINGE SQ SCH (08:44)
[2023-11-24] MEDS: FERROUS SULFATE 325 MG TAB PO SCH (08:44)
[2023-11-24] MEDS: PANTOPRAZOLE 40 MG TABLET PO SCH (08:44)
[2023-11-24] MEDS: HYDROcodone/APAP 10-325MG 1 EACH TAB PO PRN ×2 (10:10→21:21)
--- NOTE | 2023-11-24 10:11 | P.PN ---
Subjective Progress Note Date: 11/24/23 This is an 83-year-old male patient who presented to the ER to be evaluated after sustaining a fall according to records patient was found by a neighbor and EMS was called. Patient reports that he's been falling frequently over the past few days upon arrival head and cervical CT completed showing no evidence of acute intracranial abnormality partially opacified right mastoid air cells age indeterminant. No acute fracture seen and cervical spine degenerative changes. Chest x-ray completed showing no evidence of acute cardiopulmonary disease. Shoulder x-ray completed showing no evidence of acute fracture or dislocation. Pelvis x-ray completed showing mild varus angulation the right proximal tibial versus positional appearance no definitive fracture asymmetric increased opacity superomedial thigh soft tissue versus overlapping structures. Femur x-ray completed showing varices angulation the proximal right femur versus positional appearance note definitive fracture. Patient has past medical history of gangrene is right toe in which she has planned amputation on the . Additional medical history includes hyperlipidemia, hypertension, sciatica, vascular disease with 3 stents in left leg and ex-smoker. At this time patient will be admitted patient noted to have elevated lactic acid will start patient on IV Zosyn and consult vascular surgery along with infectious disease. Current vital signs temp 98.1, heart rate 84, respiratory rate 16, blood pressure 137/73 with pulse ox 99% on room air. At this time patient denies chest pain or shortness breath. Patient denies nausea vomiting or diarrhea. Patient denies any urinary burning or frequency On 11/22/2023 patient was seen and examined on the medical floor he is somnolent responsive in no apparent distress, he is complaining of lower extremities pain otherwise he denies any complaints, there is no fever or chills no headache or dizziness no chest pain no shortness of breath no cough no nausea or vomiting no abdominal pain no diarrhea and no urinary symptoms, vital exam reveals a temperature of 98 pulse 61 respiration 18 blood pressure 174/67 pulse ox 98% on room air white blood count is down to 9.3 hemoglobin 10.0 platelet count 342 creatinine 0.8 input from orthopedic and vascular surgery reviewed On 11/23/2023 patient was seen and examined on the medical floor he is somnolent responsive in no apparent distress, he is complaining of lower extremities pain otherwise he denies any complaints, there is no fever or chills no headache or dizziness no chest pain no shortness of breath no cough no nausea or vomiting no abdominal pain no diarrhea and no urinary symptoms. Plan by vascular surgery to proceed with above knee amputation. infectious disease input reviewed On 11/24/2023 patient alert and oriented 3. Patient reports he did have some hallucinations that he believed secondary to medication. Patient reports symptoms have resolved. Tentative plans for above-knee amputation on 11/27. Patient remains on IV Zosyn. Current vital signs temp 97.9, rate 69, respiratory rate 18, blood pressure 157/62 with a pulse ox 96% on room Objective - Vital Signs Vital signs: Vital Signs Temp 97.9 F 11/24/23 08:00 Pulse 69 11/24/23 08:00 Resp 18 11/24/23 08:00 BP 157/72 11/24/23 08:00 Pulse Ox 96 11/24/23 08:00 FiO2 Intake & Output 11/23/23 11/24/23 11/24/23 18:59 06:59 18:59 Output Total 300 550 Balance -300 -550 Output: Urine 300 550 Other: Voiding Method External Catheter External Catheter # Bowel Movements 0 - Exam Head normocephalic and atraumatic Neck supple no JVD no goiter Lungs clear to auscultation bilaterally no wheezing or crackles Heart regular rate and rhythm S1-S2, no rub or gallop Abdomen is soft nontender nondistended positive bowel sounds no hepatosplenomegaly Extremities right greater toe gangrenous black. Erythema noted around foot Neuro alert and orientated to 3 - Labs CBC & Chem 7: 11/23/23 05:33 11/23/23 05:33 Labs: Abnormal Lab Results - Last 24 Hours (Table) 11/23/23 Range/Units 05:33 BUN/Creatinine Ratio 10.44 L (12.00-20.00) Ratio Glucose 111 H (70-110) mg/dL Total Protein 6.1 L (6.2-8.2) g/dL Albumin 3.4 L (3.8-4.9) g/dL Albumin/Globulin Ratio 1.26 L (1.60-3.17) Ratio Microbiology - Last 24 Hours (Table) 11/21/23 10:27 Blood Culture - Preliminary Blood Assessment and Plan Assessment: 1. Frequent falls 2. Right hip pain secondary to above 3. Right greater toe gangrene is with elevated lactic acid 4. History of hyperlipidemia 5. History of essential hypertension 6. History of osteoarthritis 7. History of peripheral vascular disease with multiple stents in leg At this time patient will be admitted DVT prophylaxis Lovenox. GI prophylaxis Protonix Patient started on IV antibiotics Vascular, infectious disease and orthopedic service is consulted plans for above-knee amputation on 11/27/2023 Repeat labs ordered
[2023-11-24 10:14] LABS: Basophils # (A) 0.04 X 10*3/uL (0.00-0.10); Basophils % (A) 0.5 %; Eosinophils # (A) 0.45 X 10*3/uL (0.04-0.35); Eosinophils % (A) 5.7 %; HCT 31.1 % (39.6-50.0); HGB 9.4 g/dL (13.0-17.0); Lymphocytes # (A) 0.61 X 10*3/uL (0.90-5.00); Lymphocytes % (A) 7.7 %; MCH 25.8 pg (27.0-32.0); MCHC 30.2 g/dL (32.0-37.0); MCV 85.2 FL (80.0-97.0); Mean Platelet Volume 9.9 FL (9.5-12.2); Monocytes # (A) 0.63 X 10*3/uL (0.20-1.00); NRBC Per 100 WBC 0 X 10*3/uL (0.00-0.01); Neutrophils # (A) 6.12 X 10*3/uL (1.80-7.70); Neutrophils % (A) 77.7 %; Platelet Count 320 X 10*3/uL (140-440); RBC 3.65 X 10*6/uL (4.40-5.60); RDW 17.8 % (11.5-14.5); WBC 7.88 X 10*3/uL (4.50-10.00)
[2023-11-24 11:03] LABS: ALT 13 U/L (10-49); AST 29 U/L (14-35); Albumin 3.1 g/dL (3.8-4.9); Albumin/Globulin Ratio 1.29 Ratio (1.60-3.17); Alkaline Phosphatase 116 U/L (41-126); Blood Urea Nitrogen 8.4 mg/dL (9.0-27.0); Calcium 8.6 mg/dL (8.7-10.3); Carbon Dioxide 25.9 mmol/L (21.6-31.8); Chloride 104 mmol/L (96-109); Globulin 2.4 g/dL (1.6-3.3); Glucose 105 mg/dL (70-110); Sodium 141 mmol/L (135-145); Total Bilirubin 0.4 mg/dL (0.3-1.2); Total Protein 5.5 g/dL (6.2-8.2)
--- NOTE | 2023-11-24 11:09 | P.PN ---
Subjective Progress Note Date: 11/24/23 Principal diagnosis: Right lower extremity chronic ischemia with right great toe ischemic changes Patient seen and examined today as a follow-up. He has a nonhealing wound to the right foot and contracted right knee. Recommendation is for [id number] amputation which is scheduled for outpatient on 11/27/2023. Patient without any other complaints at this time. Objective - Vital Signs Vital signs: Vital Signs Temp 97.9 F 11/24/23 08:00 Pulse 69 11/24/23 08:00 Resp 18 11/24/23 08:00 BP 157/72 11/24/23 08:00 Pulse Ox 96 11/24/23 08:00 FiO2 Intake & Output 11/23/23 11/24/23 11/24/23 18:59 06:59 18:59 Output Total 300 550 Balance -300 -550 Output: Urine 300 550 Other: Voiding Method External Catheter External Catheter # Bowel Movements 0 - Exam General appearance: The patient is alert, oriented, appears in no acute distress. HET: Head is normocephalic and atraumatic. Pupils are equal and reactive. Neck: Supple. Heart: Regular. Lungs: Equal expansion, normal respiratory effort. Abdomen: Soft, nondistended. Extremities: Nonpalpable DP or PT pulse on the right. Ischemic changes noted at the great toe. No tenderness palpation at the calf. Contracture noted at the right knee and patient is unable to extend. Nonpalpable DP or PT pulse on the left. Better capillary refill at the foot. Better range of motion noted. Neurological: No focal deficits noted. - Labs CBC & Chem 7: 11/24/23 05:13 11/24/23 05:13 Labs: Abnormal Lab Results - Last 24 Hours (Table) 11/23/23 Range/Units 05:33 BUN/Creatinine Ratio 10.44 L (12.00-20.00) Ratio Glucose 111 H (70-110) mg/dL Total Protein 6.1 L (6.2-8.2) g/dL Albumin 3.4 L (3.8-4.9) g/dL Albumin/Globulin Ratio 1.26 L (1.60-3.17) Ratio Microbiology - Last 24 Hours (Table) 11/21/23 10:27 Blood Culture - Preliminary Blood Assessment and Plan Assessment: 1. Right lower extremity chronic ischemia 2. Right great toe ischemic changes 3. Peripheral arterial disease with critical limb ischemia on the right 4. Confusion 5. Recent fall Plan: No changes from a vascular standpoint at this time. Patient still scheduled for right lower extremity amputation. Due to the fact that he is unable to extend his knee he may benefit from above the amputation which has been discussed with him and patient is agreeable if that is what is needed. No urgency to amputation. He is scheduled for 11/27/2023, if patient is still in hospital will do at that time however by no means does patient need to stay in the hospital from a vascular surgical standpoint and this can be done as previously scheduled as an outpatient. The impression and plan of care has been dictated as directed. I performed a history and examination of this patient, discussed the same with the dictator. I agree with the dictator's note ,documented as a scribe. Any additional findings or plans will be noted.
[2023-11-24] MEDS: SODIUM CHLORIDE 0.9% 1,000 ML IV SCH (11:13)
[2023-11-24] MEDS: ATORVASTATIN 40 MG TAB PO SCH (21:21)
[2023-11-24] MEDS: LATANOPROST 0.005% OPHTH DROPS 2.5 ML BTL BOTH EYES SCH (21:23)
[2023-11-25] MEDS: SODIUM CHLORIDE 0.9% 1,000 ML IV SCH ×2 (02:12→20:09)
[2023-11-25] MEDS: HYDROcodone/APAP 10-325MG 1 EACH TAB PO PRN (06:17)
[2023-11-25] MEDS: PANTOPRAZOLE 40 MG TABLET PO SCH (06:17)
[2023-11-25] MEDS: ENOXAPARIN 40 MG/0.4 ML SYRINGE SQ SCH (08:01)
[2023-11-25] MEDS: FERROUS SULFATE 325 MG TAB PO SCH (08:01)
[2023-11-25] MEDS: GABAPENTIN 300 MG CAP PO SCH ×3 (08:01→20:45)
[2023-11-25] MEDS: hydroCHLOROthiazide 12.5 MG CAP PO SCH (08:01)
[2023-11-25] MEDS: PIPERACILLIN-TAZOBACTAM 3.375 GM in SODIUM CHLORIDE 0.9% 100 ML IVPB SCH ×3 (08:01→23:25)
[2023-11-25 08:49] LABS: Basophils # (A) 0.04 X 10*3/uL (0.00-0.10); Basophils % (A) 0.5 %; Eosinophils # (A) 0.37 X 10*3/uL (0.04-0.35); Eosinophils % (A) 4.4 %; HCT 31.2 % (39.6-50.0); HGB 9.8 g/dL (13.0-17.0); Lymphocytes # (A) 0.58 X 10*3/uL (0.90-5.00); Lymphocytes % (A) 6.9 %; MCHC 31.4 g/dL (32.0-37.0); MCV 82.8 FL (80.0-97.0); Mean Platelet Volume 9.8 FL (9.5-12.2); Monocytes # (A) 0.81 X 10*3/uL (0.20-1.00); Monocytes % (A) 9.6 %; NRBC Per 100 WBC 0 X 10*3/uL (0.00-0.01); Neutrophils # (A) 6.61 X 10*3/uL (1.80-7.70); Neutrophils % (A) 78.1 %; Platelet Count 371 X 10*3/uL (140-440); RBC 3.77 X 10*6/uL (4.40-5.60); RDW 17.7 % (11.5-14.5); WBC 8.45 X 10*3/uL (4.50-10.00)
[2023-11-25 09:01] LABS: ALT 19 U/L (10-49); AST 47 U/L (14-35); Albumin 3.4 g/dL (3.8-4.9); Albumin/Globulin Ratio 1.36 Ratio (1.60-3.17); Alkaline Phosphatase 133 U/L (41-126); BUN/Creat Ratio 14.33 Ratio (12.00-20.00); Blood Urea Nitrogen 12.9 mg/dL (9.0-27.0); Calcium 8.5 mg/dL (8.7-10.3); Carbon Dioxide 25.2 mmol/L (21.6-31.8); Chloride 102 mmol/L (96-109); Globulin 2.5 g/dL (1.6-3.3); Glucose 117 mg/dL (70-110); Potassium 3.8 mmol/L (3.5-5.5); Sodium 139 mmol/L (135-145); Total Bilirubin 0.5 mg/dL (0.3-1.2); Total Protein 5.9 g/dL (6.2-8.2)
--- NOTE | 2023-11-25 09:51 | P.PN ---
Subjective Progress Note Date: 11/25/23 This is an 83-year-old male patient who presented to the ER to be evaluated after sustaining a fall according to records patient was found by a neighbor and EMS was called. Patient reports that he's been falling frequently over the past few days upon arrival head and cervical CT completed showing no evidence of acute intracranial abnormality partially opacified right mastoid air cells age indeterminant. No acute fracture seen and cervical spine degenerative changes. Chest x-ray completed showing no evidence of acute cardiopulmonary disease. Shoulder x-ray completed showing no evidence of acute fracture or dislocation. Pelvis x-ray completed showing mild varus angulation the right proximal tibial versus positional appearance no definitive fracture asymmetric increased opacity superomedial thigh soft tissue versus overlapping structures. Femur x-ray completed showing varices angulation the proximal right femur versus positional appearance note definitive fracture. Patient has past medical history of gangrene is right toe in which she has planned amputation on the . Additional medical history includes hyperlipidemia, hypertension, sciatica, vascular disease with 3 stents in left leg and ex-smoker. At this time patient will be admitted patient noted to have elevated lactic acid will start patient on IV Zosyn and consult vascular surgery along with infectious disease. Current vital signs temp 98.1, heart rate 84, respiratory rate 16, blood pressure 137/73 with pulse ox 99% on room air. At this time patient denies chest pain or shortness breath. Patient denies nausea vomiting or diarrhea. Patient denies any urinary burning or frequency On 11/22/2023 patient was seen and examined on the medical floor he is somnolent responsive in no apparent distress, he is complaining of lower extremities pain otherwise he denies any complaints, there is no fever or chills no headache or dizziness no chest pain no shortness of breath no cough no nausea or vomiting no abdominal pain no diarrhea and no urinary symptoms, vital exam reveals a temperature of 98 pulse 61 respiration 18 blood pressure 174/67 pulse ox 98% on room air white blood count is down to 9.3 hemoglobin 10.0 platelet count 342 creatinine 0.8 input from orthopedic and vascular surgery reviewed On 11/23/2023 patient was seen and examined on the medical floor he is somnolent responsive in no apparent distress, he is complaining of lower extremities pain otherwise he denies any complaints, there is no fever or chills no headache or dizziness no chest pain no shortness of breath no cough no nausea or vomiting no abdominal pain no diarrhea and no urinary symptoms. Plan by vascular surgery to proceed with above knee amputation. infectious disease input reviewed On 11/24/2023 patient alert and oriented 3. Patient reports he did have some hallucinations that he believed secondary to medication. Patient reports symptoms have resolved. Tentative plans for above-knee amputation on 11/27. Patient remains on IV Zosyn. Current vital signs temp 97.9, rate 69, respiratory rate 18, blood pressure 157/62 with a pulse ox 96% on room On 11/25/2023 patient is alert and oriented x 3. Patient remains on IV Zosyn. Plans for amputation on 11/27/2023. Current vital signs Temp 98.3, heart rate 86, respiratory rate 18, blood pressure 165/77 with a pulse ox of 95% on room air. At this time patient denies chest pain or shortness of breath. Patient denies nausea vomiting or diarrhea. Patient denies any urinary burning or frequency. Attempted to call patient's friend greater than 60% of the total time spent in counseling and coordination of care per request but unable to reach him at this time. Will attempt again today Objective - Vital Signs Vital signs: Vital Signs Temp 98.3 F 11/25/23 07:48 Pulse 86 11/25/23 07:48 Resp 18 11/25/23 07:48 BP 165/77 11/25/23 07:48 Pulse Ox 95 11/25/23 07:48 FiO2 Intake & Output 11/24/23 11/25/23 11/25/23 18:59 06:59 18:59 Intake Total 1120 Output Total 600 800 Balance -600 320 Intake: Intake, IV Titration 1000 Amount Piperacillin-Tazobactam 3 100 .375 gm In Sodium Chloride 0.9% 100 ml @ 25 mls/hr IVPB Q8HR [facility] Rx# :[id number] Sodium Chloride 0.9% 1, 900 000 ml @ 75 mls/hr IV . [id number] [facility] Rx#:[id number] Oral 120 Output: Urine 600 800 Other: Voiding Method External Catheter External Catheter - Exam Head normocephalic and atraumatic Neck supple no JVD no goiter Lungs clear to auscultation bilaterally no wheezing or crackles Heart regular rate and rhythm S1-S2, no rub or gallop Abdomen is soft nontender nondistended positive bowel sounds no hepatosplenomegaly Extremities right greater toe gangrenous black. Erythema noted around foot Neuro alert and orientated to 3 - Labs CBC & Chem 7: 11/25/23 05:16 11/25/23 05:16 Labs: Abnormal Lab Results - Last 24 Hours (Table) 11/24/23 11/24/23 11/25/23 Range/Units 05:13 05:13 05:16 RBC 3.65 L 3.77 L (4.40-5.60) X 10*6/uL Hgb 9.4 L 9.8 L (13.0-17.0) g/dL Hct 31.1 L 31.2 L (39.6-50.0) % MCH 25.8 L 26.0 L (27.0-32.0) pg MCHC 30.2 L 31.4 L (32.0-37.0) g/dL RDW 17.8 H 17.7 H (11.5-14.5) % Lymphocytes # 0.61 L 0.58 L (0.90-5.00) X 10*3/uL Eosinophils # 0.45 H 0.37 H (0.04-0.35) X 10*3/uL BUN 8.4 L (9.0-27.0) mg/dL BUN/Creatinine Ratio 10.50 L (12.00-20.00) Ratio Glucose (70-110) mg/dL Calcium 8.6 L (8.7-10.3) mg/dL AST (14-35) U/L Alkaline Phosphatase (41-126) U/L Total Protein 5.5 L (6.2-8.2) g/dL Albumin 3.1 L (3.8-4.9) g/dL Albumin/Globulin Ratio 1.29 L (1.60-3.17) Ratio 11/25/23 Range/Units 05:16 RBC (4.40-5.60) X 10*6/uL Hgb (13.0-17.0) g/dL Hct (39.6-50.0) % MCH (27.0-32.0) pg MCHC (32.0-37.0) g/dL RDW (11.5-14.5) % Lymphocytes # (0.90-5.00) X 10*3/uL Eosinophils # (0.04-0.35) X 10*3/uL BUN (9.0-27.0) mg/dL BUN/Creatinine Ratio (12.00-20.00) Ratio Glucose 117 H (70-110) mg/dL Calcium 8.5 L (8.7-10.3) mg/dL AST 47 H (14-35) U/L Alkaline Phosphatase 133 H (41-126) U/L Total Protein 5.9 L (6.2-8.2) g/dL Albumin 3.4 L (3.8-4.9) g/dL Albumin/Globulin Ratio 1.36 L (1.60-3.17) Ratio Microbiology - Last 24 Hours (Table) 11/21/23 10:27 Blood Culture - Preliminary Blood Assessment and Plan Assessment: 1. Frequent falls 2. Right hip pain secondary to above 3. Right greater toe gangrene is with elevated lactic acid 4. History of hyperlipidemia 5. History of essential hypertension 6. History of osteoarthritis 7. History of peripheral vascular disease with multiple stents in leg At this time patient will be admitted DVT prophylaxis Lovenox. GI prophylaxis Protonix Patient started on IV antibiotics Vascular, infectious disease and orthopedic service is consulted plans for above-knee amputation on 11/27/2023 Repeat labs ordered
--- NOTE | 2023-11-25 10:29 | P.PN ---
Subjective Progress Note Date: 11/25/23 Principal diagnosis: Right lower extremity chronic ischemia with right great toe ischemic changes Patient is seen and examined today as a follow-up. No acute changes through the night. Primary medical team plan and just keeping patient hospitalized until surgery on Thursday. Patient is alert and oriented x 3. Objective - Vital Signs Vital signs: Vital Signs Temp 98.3 F 11/25/23 07:48 Pulse 86 11/25/23 08:45 Resp 18 11/25/23 08:45 BP 165/77 11/25/23 07:48 Pulse Ox 95 11/25/23 07:48 FiO2 Intake & Output 11/24/23 11/25/23 11/25/23 18:59 06:59 18:59 Intake Total 1120 Output Total 600 800 Balance -600 320 Intake: Intake, IV Titration 1000 Amount Piperacillin-Tazobactam 3 100 .375 gm In Sodium Chloride 0.9% 100 ml @ 25 mls/hr IVPB Q8HR [facility] Rx# :[id number] Sodium Chloride 0.9% 1, 900 000 ml @ 75 mls/hr IV . [id number] [facility] Rx#:[id number] Oral 120 Output: Urine 600 800 Other: Voiding Method External Catheter External Catheter External Catheter - Exam General appearance: The patient is alert, oriented, appears in no acute distress. HET: Head is normocephalic and atraumatic. Pupils are equal and reactive. Neck: Supple. Heart: Regular. Lungs: Equal expansion, normal respiratory effort. Abdomen: Soft, nondistended. Extremities: Nonpalpable DP or PT pulse on the right. Ischemic changes noted at the great toe. No tenderness palpation at the calf. Contracture noted at the right knee and patient is unable to extend. Nonpalpable DP or PT pulse on the left. Better capillary refill at the foot. Better range of motion noted. Neurological: No focal deficits noted. - Labs CBC & Chem 7: 11/25/23 05:16 11/25/23 05:16 Labs: Abnormal Lab Results - Last 24 Hours (Table) 11/24/23 11/25/23 11/25/23 Range/Units 05:13 05:16 05:16 RBC 3.77 L (4.40-5.60) X 10*6/uL Hgb 9.8 L (13.0-17.0) g/dL Hct 31.2 L (39.6-50.0) % MCH 26.0 L (27.0-32.0) pg MCHC 31.4 L (32.0-37.0) g/dL RDW 17.7 H (11.5-14.5) % Lymphocytes # 0.58 L (0.90-5.00) X 10*3/uL Eosinophils # 0.37 H (0.04-0.35) X 10*3/uL BUN 8.4 L (9.0-27.0) mg/dL BUN/Creatinine Ratio 10.50 L (12.00-20.00) Ratio Glucose 117 H (70-110) mg/dL Calcium 8.6 L 8.5 L (8.7-10.3) mg/dL AST 47 H (14-35) U/L Alkaline Phosphatase 133 H (41-126) U/L Total Protein 5.5 L 5.9 L (6.2-8.2) g/dL Albumin 3.1 L 3.4 L (3.8-4.9) g/dL Albumin/Globulin Ratio 1.29 L 1.36 L (1.60-3.17) Ratio Microbiology - Last 24 Hours (Table) 11/21/23 10:27 Blood Culture - Preliminary Blood Assessment and Plan Assessment: 1. Right lower extremity chronic ischemia 2. Right great toe ischemic changes 3. Peripheral arterial disease with critical limb ischemia on the right 4. Confusion 5. Recent fall Plan: No changes from a vascular standpoint at this time. Patient still scheduled for right lower extremity amputation. Due to the fact that he is unable to extend his knee he will benefit from above the amputation which has been discussed with him and patient is agreeable if that is what is needed. No urgency to amputation. He is scheduled for 11/27/2023, if patient is still in hospital [place] l do at that time however by no means does patient need to stay in the hospital from a vascular surgical standpoint and this can be done as previously scheduled as an outpatient. The impression and plan of care has been dictated as directed. I performed a history and examination of this patient, discussed the same with the dictator. I agree with the dictator's note ,documented as a scribe. Any additional findings or plans will be noted.
[2023-11-25] MEDS: ATORVASTATIN 40 MG TAB PO SCH (20:08)
[2023-11-25] MEDS: LATANOPROST 0.005% OPHTH DROPS 2.5 ML BTL BOTH EYES SCH (20:09)
[2023-11-26] MEDS: SODIUM CHLORIDE 0.9% 1,000 ML IV SCH ×2 (03:44→17:33)
--- NOTE | 2023-11-26 06:05 | P.PN ---
Subjective Progress Note Date: 11/24/23 Principal diagnosis: Reason for follow-up is right big toe gangrene and cellulitis Patient is a 83-year-old male with a past medical history significant for hypertension hyperlipidemia osteoarthritis also with a history of peripheral arterial disease status post right femoral to popliteal bypass subsequently did have a right groin infection requiring debridement an removald bypass graft patient apparently has been dealing with the right big toe discoloration and g sanjuana, presented to the hospital with weakness and fall and there was concern for possible cellulitis to the right big toe gangrene site. On today's evaluation that is 11/24/2023 the patient continues to be afebrile, patient is breathing comfortably on room air , the patient not very good historian but when asked specifically denies having any chest pain no significant cough or sputum production no nausea vomiting no abdominal pain still complaining of pain to the right big toe. Patient did have white count of 7.88 creatinine 0.8 blood culture negative so fa Objective - Vital Signs Vital signs: Vital Signs Temp 97.9 F 11/24/23 08:00 Pulse 69 11/24/23 08:00 Resp 18 11/24/23 08:00 BP 157/72 11/24/23 08:00 Pulse Ox 96 11/24/23 08:00 FiO2 Intake & Output 11/23/23 11/24/23 11/24/23 18:59 06:59 18:59 Output Total 300 550 Balance -300 -550 Output: Urine 300 550 Other: Voiding Method External Catheter External Catheter # Bowel Movements 0 - Exam Elderly male lying in bed in no distress Respiratory system unlabored breathing decreased breath sound the base Heart S1-S2 regular Abdominal soft no tenderness Right big toe is necrotic no drainage Exam completed with the help of [employer] - Labs CBC & Chem 7: 11/25/23 05:16 11/25/23 05:16 Labs: Abnormal Lab Results - Last 24 Hours (Table) 11/23/23 Range/Units 05:33 BUN/Creatinine Ratio 10.44 L (12.00-20.00) Ratio Glucose 111 H (70-110) mg/dL Total Protein 6.1 L (6.2-8.2) g/dL Albumin 3.4 L (3.8-4.9) g/dL Albumin/Globulin Ratio 1.26 L (1.60-3.17) Ratio Microbiology - Last 24 Hours (Table) 11/21/23 10:27 Blood Culture - Preliminary Blood Assessment and Plan (1) Gangrene of toe of right foot Current Visit: Yes Status: Acute Code(s): I96 - GANGRENE, NOT ELSEWHERE CLASSIFIED SNOMED Code(s): 83778537050992051 (2) Cellulitis of right foot Current Visit: Yes Status: Acute Code(s): L03.115 - CELLULITIS OF RIGHT LOWER LIMB SNOMED Code(s): 07315376877917501 Plan: 1patient presented to hospital with weakness and did have multiple falls also n oticed to be slightly confused patient is not running any fever white count is not significantly elevated but did have a left shift and the patient did have a right big toe gangrene more likely from underlying peripheral arterial disease minimal surrounding redness and a component of secondary cellulitis not entirely excluded 2-patient did have elevated inflammatory markers 3- possible plan for right kiemj-xeu-[id number] amputation scheduled for 11/27/2023 and we will get the patient on Zosyn for the possible component of cellulitis/infection Dictation was produced using [employer] dictation software. please excuse any grammatical, word or spelling errors. Time with Patient: Less than 30
[2023-11-26] MEDS: PANTOPRAZOLE 40 MG TABLET PO SCH (06:06)
--- NOTE | 2023-11-26 06:06 | P.PN ---
Subjective Progress Note Date: 11/25/23 Principal diagnosis: Reason for follow-up is right big toe gangrene and cellulitis This is a telehealth visit Patient is a 83-year-old male with a past medical history significant for hypertension hyperlipidemia osteoarthritis also with a history of peripheral arterial disease status post right femoral to popliteal bypass subsequently did have a right groin infection requiring debridement an removald bypass graft patient apparently has been dealing with the right big toe discoloration and gangrene, presented to the hospital with weakness and fall and there was concern for possible cellulitis to the right big toe gangrene site. On today's evaluation that is 11/25/2023, the patient is afebrile patient is breathing comfortably on room air without need for supplemental oxygen the patient lethargic but arousable not a very good historian still complaining of pain to the right big toe no worsening and no vomiting or diarrhea has been reported. Patient did have white count of 8.45, creatinine 0.9 blood culture has been negative Objective - Vital Signs Vital signs: Vital Signs Temp 98.3 F 11/25/23 07:48 Pulse 86 11/25/23 08:45 Resp 18 11/25/23 08:45 BP 165/77 11/25/23 07:48 Pulse Ox 95 11/25/23 07:48 FiO2 Intake & Output 11/24/23 11/25/23 11/25/23 18:59 06:59 18:59 Intake Total 1120 Output Total 600 800 Balance -600 320 Intake: Intake, IV Titration 1000 Amount Piperacillin-Tazobactam 3 100 .375 gm In Sodium Chloride 0.9% 100 ml @ 25 mls/hr IVPB Q8HR [facility] Rx# :[id number] Sodium Chloride 0.9% 1, 900 000 ml @ 75 mls/hr IV . [id number] [facility] Rx#:[id number] Oral 120 Output: Urine 600 800 Other: Voiding Method External Catheter External Catheter External Catheter - Exam Elderly male lying in bed in no distress Respiratory system unlabored breathing decreased breath sound the base Heart S1-S2 regular Abdominal soft no tenderness Right big toe is necrotic no drainage Exam completed with the help of [employer] - Labs CBC & Chem 7: 11/25/23 05:16 11/25/23 05:16 Labs: Abnormal Lab Results - Last 24 Hours (Table) 0111/25/23 11/25/23 Range/Units 05:13 05:16 05:16 RBC 3.77 L (4.40-5.60) X 10*6/uL Hgb 9.8 L (13.0-17.0) g/dL Hct 31.2 L (39.6-50.0) % MCH 26.0 L (27.0-32.0) pg MCHC 31.4 L (32.0-37.0) g/dL RDW 17.7 H (11.5-14.5) % Lymphocytes # 0.58 L (0.90-5.00) X 10*3/uL Eosinophils # 0.37 H (0.04-0.35) X 10*3/uL BUN 8.4 L (9.0-27.0) mg/dL BUN/Creatinine Ratio 10.50 L (12.00-20.00) Ratio Glucose 117 H (70-110) mg/dL Calcium 8.6 L 8.5 L (8.7-10.3) mg/dL AST 47 H (14-35) U/L Alkaline Phosphatase 133 H (41-126) U/L Total Protein 5.5 L 5.9 L (6.2-8.2) g/dL Albumin 3.1 L 3.4 L (3.8-4.9) g/dL Albumin/Globulin Ratio 1.29 L 1.36 L (1.60-3.17) Ratio Microbiology - Last 24 Hours (Table) 11/21/23 10:27 Blood Culture - Preliminary Blood Assessment and Plan (1) Gangrene of toe of right foot Current Visit: Yes Status: Acute Code(s): I96 - GANGRENE, NOT ELSEWHERE CL ASSIFIED SNOMED Code(s): 07562632882398683 (2) Cellulitis of right foot Current Visit: Yes Status: Acute Code(s): L03.115 - CELLULITIS OF RIGHT LOWER LIMB SNOMED Code(s): 78467274005566880 Plan: 1patient presented to hospital with weakness and did have multiple falls also noticed to be slightly confused patient is not running any fever white count is not significantly elevated but did have a left shift and the patient did have a right big toe gangrene more likely from underlying peripheral arterial disease minimal surrounding redness and a component of secondary cellulitis not entirely excluded 2-patient did have elevated inflammatory markers 3- possible plan for right [id number] amputation scheduled for 11/27/2023 4-patient is covered with Zosyn for the possible component of cellulitis/infection and will monitor clinical course closely Dictation was produced using [employer] dictation software. please excuse any grammatical, word or spelling errors.
[2023-11-26] MEDS: PIPERACILLIN-TAZOBACTAM 3.375 GM in SODIUM CHLORIDE 0.9% 100 ML IVPB SCH ×3 (08:42→23:21)
[2023-11-26] MEDS: FERROUS SULFATE 325 MG TAB PO SCH (08:43)
[2023-11-26] MEDS: hydroCHLOROthiazide 12.5 MG CAP PO SCH (08:43)
[2023-11-26] MEDS: GABAPENTIN 300 MG CAP PO SCH ×3 (08:43→22:25)
[2023-11-26] MEDS: ENOXAPARIN 40 MG/0.4 ML SYRINGE SQ SCH ×2 (08:43)
[2023-11-26] MEDS: MORPHINE SULFATE 4 MG/ML SYRINGE IV PRN (08:50)
[2023-11-26] MEDS: HYDROcodone/APAP 10-325MG 1 EACH TAB PO PRN (10:27)
[2023-11-26 11:08] LABS: Basophils # (A) 0.04 X 10*3/uL (0.00-0.10); Basophils % (A) 0.5 %; Eosinophils # (A) 0.39 X 10*3/uL (0.04-0.35); Eosinophils % (A) 5.3 %; HCT 29.6 % (39.6-50.0); HGB 9.1 g/dL (13.0-17.0); Lymphocytes # (A) 0.57 X 10*3/uL (0.90-5.00); Lymphocytes % (A) 7.8 %; MCH 25.9 pg (27.0-32.0); MCHC 30.7 g/dL (32.0-37.0); MCV 84.3 FL (80.0-97.0); Monocytes % (A) 9.5 %; NRBC Per 100 WBC 0 X 10*3/uL (0.00-0.01); Neutrophils # (A) 5.63 X 10*3/uL (1.80-7.70); Neutrophils % (A) 76.6 %; Platelet Count 325 X 10*3/uL (140-440); RBC 3.51 X 10*6/uL (4.40-5.60); RDW 17.8 % (11.5-14.5); WBC 7.35 X 10*3/uL (4.50-10.00)
--- NOTE | 2023-11-26 11:15 | P.PN ---
Subjective Progress Note Date: 11/26/23 Principal diagnosis: Right lower extremity chronic ischemia with right great toe ischemic changes Patient is seen and examined today as a follow-up. He is sitting up finishing his breakfast. No acute changes through the night. Patient is alert and oriented x 3. Discussed with patient plans for surgery tomorrow as scheduled. Plan for right [id number] amputation, patient is agreeable. Objective - Vital Signs Vital signs: Vital Signs Temp 98.4 F 11/26/23 10:37 Pulse 67 11/26/23 10:37 Resp 16 11/26/23 10:37 BP 126/63 11/26/23 10:37 Pulse Ox 93 L 11/26/23 07:48 FiO2 Intake & Output 11/25/23 11/26/23 11/26/23 18:59 06:59 18:59 Intake Total 1120 Output Total 1700 700 Balance -580 -700 Intake: Intake, IV Titration 1000 Amount Piperacillin-Tazobactam 3 100 .375 gm In Sodium Chloride 0.9% 100 ml @ 25 mls/hr IVPB Q8HR [facility] Rx# :[id number] Sodium Chloride 0.9% 1, 900 000 ml @ 75 mls/hr IV . [id number] [facility] Rx#:[id number] Oral 120 Output: Urine 1700 700 Other: Voiding Method External Catheter External Catheter Incontinent - Exam General appearance: The patient is alert, oriented, appears in no acute distress. HET: Head is normocephalic and atraumatic. Pupils are equal and reactive. Neck: Supple. Heart: Regular. Lungs: Equal expansion, normal respiratory effort. Abdomen: Soft, nondistended. Extremities: Nonpalpable DP or PT pulse on the right. Ischemic changes noted at the great toe. No tenderness palpation at the calf. Contracture noted at the right knee and patient is unable to extend. Nonpalpable DP or PT pulse on the left. Better capillary refill at the foot. Better range of motion noted. Neurological: No focal deficits noted. - Labs CBC & Chem 7: 11/26/23 06:25 11/25/23 05:16 Labs: Abnormal Lab Results - Last 24 Hours (Table) 11/26/23 Range/Units 06:25 RBC 3.51 L (4.40-5.60) X 10*6/uL Hgb 9.1 L (13.0-17.0) g/dL Hct 29.6 L (39.6-50.0) % MCH 25.9 L (27.0-32.0) pg MCHC 30.7 L (32.0-37.0) g/dL RDW 17.8 H (11.5-14.5) % Lymphocytes # 0.57 L (0.90-5.00) X 10*3/uL Eosinophils # 0.39 H (0.04-0.35) X 10*3/uL Assessment and Plan Assessment: 1. Right lower extremity chronic ischemia 2. Right great toe ischemic changes 3. Peripheral arterial disease with critical limb ischemia on the right 4. Confusion 5. Recent fall Plan: 1. N.p.o. after midnight 2. Hold Lovenox on 11/27/2023 for surgery 3. Plan for right above the knee amputation tomorrow 4. 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 Type and screen ordered 6. Will need to consult PT and OT post amputation Thank you for this consultation, we will continue to follow. The impression and plan of care has been dictated as directed. I performed a history and examination of this patient, discussed the same with the dictator. I agree with the dictator's note ,documented as a scribe. Any additional findings or plans will be noted.
[2023-11-26 11:40] LABS: ALT 18 U/L (10-49); AST 45 U/L (14-35); Albumin 3.1 g/dL (3.8-4.9); Albumin/Globulin Ratio 1.29 Ratio (1.60-3.17); Alkaline Phosphatase 129 U/L (41-126); Blood Urea Nitrogen 9.8 mg/dL (9.0-27.0); Calcium 8.7 mg/dL (8.7-10.3); Carbon Dioxide 26.3 mmol/L (21.6-31.8); Chloride 102 mmol/L (96-109); Globulin 2.4 g/dL (1.6-3.3); Glucose 94 mg/dL (70-110); Potassium 3.8 mmol/L (3.5-5.5); Sodium 138 mmol/L (135-145); Total Bilirubin 0.4 mg/dL (0.3-1.2); Total Protein 5.5 g/dL (6.2-8.2)
--- NOTE | 2023-11-26 16:50 | P.PN ---
Subjective Progress Note Date: 11/26/23 This is an 83-year-old male patient who presented to the ER to be evaluated after sustaining a fall according to records patient was found by a neighbor and EMS was called. Patient reports that he's been falling frequently over the past few days upon arrival head and cervical CT completed showing no evidence of acute intracranial abnormality partially opacified right mastoid air cells age indeterminant. No acute fracture seen and cervical spine degenerative changes. Chest x-ray completed showing no evidence of acute cardiopulmonary disease. Shoulder x-ray completed showing no evidence of acute fracture or dislocation. Pelvis x-ray completed showing mild varus angulation the right proximal tibial versus positional appearance no definitive fracture asymmetric increased opacity superomedial thigh soft tissue versus overlapping structures. Femur x-ray completed showing varices angulation the proximal right femur versus positional appearance note definitive fracture. Patient has past medical history of gangrene is right toe in which she has planned amputation on the . Additional medical history includes hyperlipidemia, hypertension, sciatica, vascular disease with 3 stents in left leg and ex-smoker. At this time patient will be admitted patient noted to have elevated lactic acid will start patient on IV Zosyn and consult vascular surgery along with infectious disease. Current vital signs temp 98.1, heart rate 84, respiratory rate 16, blood pressure 137/73 with pulse ox 99% on room air. At this time patient denies chest pain or shortness breath. Patient denies nausea vomiting or diarrhea. Patient denies any urinary burning or frequency On 11/22/2023 patient was seen and examined on the medical floor he is somnolent responsive in no apparent distress, he is complaining of lower extremities pain otherwise he denies any complaints, there is no fever or chills no headache or dizziness no chest pain no shortness of breath no cough no nausea or vomiting no abdominal pain no diarrhea and no urinary symptoms, vital exam reveals a temperature of 98 pulse 61 respiration 18 blood pressure 174/67 pulse ox 98% on room air white blood count is down to 9.3 hemoglobin 10.0 platelet count 342 creatinine 0.8 input from orthopedic and vascular surgery reviewed On 11/23/2023 patient was seen and examined on the medical floor he is somnolent responsive in no apparent distress, he is complaining of lower extremities pain otherwise he denies any complaints, there is no fever or chills no headache or dizziness no chest pain no shortness of breath no cough no nausea or vomiting no abdominal pain no diarrhea and no urinary symptoms. Plan by vascular surgery to proceed with above knee amputation. infectious disease input reviewed On 11/24/2023 patient alert and oriented 3. Patient reports he did have some hallucinations that he believed secondary to medication. Patient reports symptoms have resolved. Tentative plans for above-knee amputation on 11/27. Patient remains on IV Zosyn. Current vital signs temp 97.9, rate 69, respiratory rate 18, blood pressure 157/62 with a pulse ox 96% on room On 11/25/2023 patient is alert and oriented x 3. Patient remains on IV Zosyn. Plans for amputation on 11/27/2023. Current vital signs Temp 98.3, heart rate 86, respiratory rate 18, blood pressure 165/77 with a pulse ox of 95% on room air. At this time patient denies chest pain or shortness of breath. Patient denies nausea vomiting or diarrhea. Patient denies any urinary burning or frequency. Attempted to call patient's friend greater than 60% of the total time spent in counseling and coordination of care per request but unable to reach him at this time. Will attempt again today. On 11/26/2023 patient was seen and examined on the medical floor he is somnolent oriented in no apparent distress he is still complaining of lower extremity pain however when receiving pain medications patient is having somnolence, he has poor oral intake, he denies any other symptoms at this time there is no fever or chills no headache or dizziness no chest pain no shortness of breath no cough no nausea or vomiting no abdominal pain no diarrhea and no urinary symptoms. He is scheduled for above-knee amputation tomorrow. Continue with current management at this time. He is still maintained on IV Zosyn, infectious disease following. Objective - Vital Signs Vital signs: Vital Signs Temp 98.3 F 11/26/23 07:48 Pulse 70 11/26/23 07:48 Resp 18 11/26/23 01:30 BP 135/68 11/26/23 07:48 Pulse Ox 93 L 11/26/23 07:48 FiO2 Intake & Output 11/25/23 11/26/23 11/26/23 18:59 06:59 18:59 Intake Total 1120 Output Total 1700 700 Balance -580 -700 Intake: Intake, IV Titration 1000 Amount Piperacillin-Tazobactam 3 100 .375 gm In Sodium Chloride 0.9% 100 ml @ 25 mls/hr IVPB Q8HR [facility] Rx# :[id number] Sodium Chloride 0.9% 1, 900 000 ml @ 75 mls/hr IV . [id number] [facility] Rx#:[id number] Oral 120 Output: Urine 1700 700 Other: Voiding Method External Catheter External Catheter Incontinent - Exam Head normocephalic and atraumatic Neck supple no JVD no goiter Lungs clear to auscultation bilaterally no wheezing or crackles Heart regular rate and rhythm S1-S2, no rub or gallop Abdomen is soft nontender nondistended positive bowel sounds no hepatosplenomegaly Extremities right greater toe gangrenous black. Erythema noted around foot Neuro alert and orientated to 3 - Labs CBC & Chem 7: 11/26/23 06:25 11/26/23 06:25 Assessment and Plan Assessment: 1. Frequent falls 2. Right hip pain secondary to above 3. Right greater toe gangrene is with elevated lactic acid 4. History of hyperlipidemia 5. History of essential hypertension 6. History of osteoarthritis 7. History of peripheral vascular disease with multiple stents in leg At this time patient will be admitted DVT prophylaxis Lovenox. GI prophylaxis Protonix Patient started on IV antibiotics Vascular, infectious disease and orthopedic service is consulted plans for above-knee amputation on 11/27/2023 Repeat labs ordered
[2023-11-26] MEDS: LATANOPROST 0.005% OPHTH DROPS 2.5 ML BTL BOTH EYES SCH (22:25)
[2023-11-26] MEDS: ATORVASTATIN 40 MG TAB PO SCH (22:25)
[2023-11-27] MEDS: HYDROcodone/APAP 10-325MG 1 EACH TAB PO PRN (01:42)
--- NOTE | 2023-11-27 02:20 | P.PN ---
Subjective Progress Note Date: 11/26/23 Principal diagnosis: Reason for follow-up is right big toe gangrene and cellulitis This is a telehealth visit Patient is a 83-year-old male with a past medical history significant for hypertension hyperlipidemia osteoarthritis also with a history of peripheral arterial disease status post right femoral to popliteal bypass subsequently did have a right groin infection requiring debridement an removald bypass graft patient apparently has been dealing with the right big toe discoloration and gangrene, presented to the hospital with weakness and fall and there was concern for possible cellulitis to the right big toe gangrene site. On today's evaluation that is 11/26/2023 patient remains to be afebrile, the patient is breathing comfortably and is currently on room air, the patient denies having any chest pain no significant cough or sputum production patient denies having abdominal pain no nausea no vomiting and no diarrhea, has been complaining of pain mostly to the right big toe. Patient did have white count of 7.35 creatinine is 0.7 Objective - Vital Signs Vital signs: Vital Signs Temp 98.3 F 11/26/23 07:48 Pulse 70 11/26/23 07:48 Resp 18 11/26/23 01:30 BP 135/68 11/26/23 07:48 Pulse Ox 93 L 11/26/23 07:48 FiO2 Intake & Output 11/25/23 11/26/23 11/26/23 18:59 06:59 18:59 Intake Total 1120 Output Total 1700 700 Balance -580 -700 Intake: Intake, IV Titration 1000 Amount Piperacillin-Tazobactam 3 100 .375 gm In Sodium Chloride 0.9% 100 ml @ 25 mls/hr IVPB Q8HR [facility] Rx# :[id number] Sodium Chloride 0.9% 1, 900 000 ml @ 75 mls/hr IV . [id number] [facility] Rx#:[id number] Oral 120 Output: Urine 1700 700 Other: Voiding Method External Catheter External Catheter Incontinent - Exam Elderly male lying in bed in no distress Respiratory system unlabored breathing decreased breath sound the base Heart S1-S2 regular Abdominal soft no tenderness Right big toe is necrotic no drainage Exam completed with the help of ROAD [employer] - Labs CBC & Chem 7: 11/26/23 06:25 11/26/23 06:25 Assessment and Plan (1) Gangrene of toe of right foot Current Visit: Yes Status: Acute Code(s): I96 - GANGRENE, NOT ELSEWHERE CLASSIFIED SNOMED Code(s): 95064405415819594 (2) Cellulitis of right foot Current Visit: Yes Status: Acute Code(s): L03.115 - CELLULITIS OF RIGHT LOWER LIMB SNOMED Code(s): 94207043336101459 Plan: 1patient presented to hospital with weakness and did have multiple falls also noticed to be slightly confused patient is not running any fever white count is not significantly elevated but did have a left shift and the patient did have a right big toe gangrene more likely from underlying peripheral arterial disease minimal surrounding redness and a component of secondary cellulitis not entirely excluded 2-patient did have elevated inflammatory markers 3- possible plan for right [id number] amputation scheduled for 11/27/2023 4-patient to continue with Zosyn for the possible component of cellulitis/infection and continue with supportive care Dictation was produced using [employer] dictation software. please excuse any grammatical, word or spelling errors. Time with Patient: Less than 30
[2023-11-27] MEDS: SODIUM CHLORIDE 0.9% 1,000 ML IV SCH ×2 (06:04→19:45)
[2023-11-27] MEDS: PANTOPRAZOLE 40 MG TABLET PO SCH (06:29)
[2023-11-27 08:44] LABS: Basophils # (A) 0.03 X 10*3/uL (0.00-0.10); Basophils % (A) 0.5 %; Eosinophils # (A) 0.38 X 10*3/uL (0.04-0.35); Eosinophils % (A) 5.9 %; HCT 27.7 % (39.6-50.0); HGB 8.7 g/dL (13.0-17.0); Lymphocytes # (A) 0.64 X 10*3/uL (0.90-5.00); Lymphocytes % (A) 9.9 %; MCHC 31.4 g/dL (32.0-37.0); MCV 82.7 FL (80.0-97.0); Mean Platelet Volume 9.8 FL (9.5-12.2); Monocytes % (A) 10.9 %; NRBC Per 100 WBC 0 X 10*3/uL (0.00-0.01); Neutrophils # (A) 4.67 X 10*3/uL (1.80-7.70); Neutrophils % (A) 72.5 %; Platelet Count 316 X 10*3/uL (140-440); RBC 3.35 X 10*6/uL (4.40-5.60); RDW 17.6 % (11.5-14.5); WBC 6.44 X 10*3/uL (4.50-10.00)
[2023-11-27] MEDS: PIPERACILLIN-TAZOBACTAM 3.375 GM in SODIUM CHLORIDE 0.9% 100 ML IVPB SCH ×2 (09:00→16:36)
[2023-11-27 09:18] LABS: ALT 15 U/L (10-49); AST 32 U/L (14-35); Albumin/Globulin Ratio 1.25 Ratio (1.60-3.17); Alkaline Phosphatase 133 U/L (41-126); BUN/Creat Ratio 12.88 Ratio (12.00-20.00); Blood Urea Nitrogen 10.3 mg/dL (9.0-27.0); Calcium 8.5 mg/dL (8.7-10.3); Carbon Dioxide 27.6 mmol/L (21.6-31.8); Chloride 103 mmol/L (96-109); Globulin 2.4 g/dL (1.6-3.3); Glucose 102 mg/dL (70-110); Potassium 3.5 mmol/L (3.5-5.5); Sodium 139 mmol/L (135-145); Total Bilirubin 0.3 mg/dL (0.3-1.2); Total Protein 5.4 g/dL (6.2-8.2)
[2023-11-27] MEDS ORDERED: IV FLUID CONTINUATION 1,000 ML IV ONE (09:20)
[2023-11-27] MEDS ORDERED: GLYCOPYRROLATE 0.2 MG/ML 2 ML VIAL ONE (09:45)
[2023-11-27] MEDS ORDERED: PHENYLEPHRINE-0.9% NACL SYG 1,000 MCG/10 ML SYRINGE ONE (09:45)
[2023-11-27] MEDS ORDERED: ROCURONIUM 10 MG/ML (5 ML VIAL) IV ONE (09:45)
[2023-11-27] MEDS ORDERED: PROPOFOL 10 MG/ML 20 ML VIAL IV ONE (09:45)
[2023-11-27] MEDS ORDERED: HYDROmorphone (PF) 1 MG/ML ONE (09:45)
[2023-11-27] MEDS ORDERED: fentaNYL (PF) 50 MCG/ML 2 ML AMP ONE (09:45)
[2023-11-27] MEDS ORDERED: NEOSTIGMINE 1 MG/ML 10 ML VIAL ONE (09:45)
[2023-11-27] MEDS ORDERED: LIDOCAINE 1% INJ 10MG/ML (20 ML MDV) ONE (09:45)
[2023-11-27] MEDS ORDERED: SUCCINYLCHOLINE CHLORIDE 200 MG/10 ML VIAL IV ONE (09:45)
[2023-11-27] MEDS ORDERED: ceFAZolin 2 GM in SODIUM CHLORIDE 0.9% 500 ML 500 ML IRRIGATION ONE (10:39)
[2023-11-27] MEDS: FERROUS SULFATE 325 MG TAB PO SCH ×2 (11:00→13:02)
[2023-11-27] MEDS: GABAPENTIN 300 MG CAP PO SCH ×4 (11:00→21:38)
[2023-11-27] MEDS: hydroCHLOROthiazide 12.5 MG CAP PO SCH ×2 (11:00→13:02)
[2023-11-27] MEDS ORDERED: SODIUM CHLORIDE 0.9% 1,000 ML IV ONE (11:17)
--- NOTE | 2023-11-27 12:13 | P.OP ---
Date of Procedure: 11/27/23 Preoperative Diagnosis: Chronic limb ischemia right lower extremity Right great toe gangrene, ischemia Postoperative Diagnosis: Same Procedure(s) Performed: Right above knee amputation Anesthesia: DESTINEEA Surgeon: Dejuan David Estimated Blood Loss (ml): 50 Pathology: none sent Disposition: PACU Indications for Procedure: 83 year old gentleman with history of right critical limb ischemia with previous bypasses and thrombosis with recent angiogram demonstrating no flow distal to the knee. Long discussion had with the patient and family about amputation and he also has a contracture and therefore above knee amputation was decided. Description of Procedure: The patient was brought to the operating room, the operative leg was prepped and draped in the usual sterile manner. Incision was made above the knee and for the anterior flap an incision was made deepened in the skin, fat, and fascia and then the posterior flap incision was made, which was longer than the anterior flap and deepened in the skin, fat, and fascia. Dissection was carried down to the femur and circumferential and Gigli saw was placed and the femur was amputated. The posterior tissue was dissected free and the leg was sent off for pathology. The femoral artery, vein and nerve was suture ligated in usual fashion. The site was then irrigated with antibiotic solution and the wound was closed in a multilayer fashion with 2-0 Vicryl for the fascial layer and bola for the skin. The skin was then cleansed and dressings placed. The patient tolerated the procedure well and sent to PACU for recovery.
[2023-11-27] MEDS: MORPHINE SULFATE 4 MG/ML SYRINGE IV PRN (13:02)
[2023-11-27 13:34] VITALS: BMI 23.8
[2023-11-27] MEDS ORDERED: DEXAMETHASONE SOD PHOSPHATE 4 MG/ML 1 ML VIAL IV ONE (14:22)
[2023-11-27] MEDS ORDERED: HYDROmorphone 0.5 MG/0.5 ML SYRINGE IVP PRN (14:22)
[2023-11-27] MEDS ORDERED: MIDAZOLAM 2 MG/2 ML VIAL IV PRN (14:22)
[2023-11-27] MEDS ORDERED: LIDOCAINE 1% (10MG/ML) FOR IV START INTRADERMA PRN (14:22)
[2023-11-27] MEDS ORDERED: ONDANSETRON 4 MG/2 ML VIAL IVP ONE (14:22)
[2023-11-27] MEDS: LACTATED RINGERS 1,000 ML IV SCH (15:27)
[2023-11-27] MEDS: LATANOPROST 0.005% OPHTH DROPS 2.5 ML BTL BOTH EYES SCH (21:38)
[2023-11-27] MEDS: ATORVASTATIN 40 MG TAB PO SCH (21:39)
--- NOTE | 2023-11-27 23:26 | P.PN ---
Subjective Progress Note Date: 11/27/23 Principal diagnosis: Reason for follow-up is right big toe gangrene and cellulitis This is a telehealth visit Patient is a 83-year-old male with a past medical history significant for hypertension hyperlipidemia osteoarthritis also with a history of peripheral arterial disease status post right femoral to popliteal bypass subsequently did have a right groin infection requiring debridement an removald bypass graft patient apparently has been dealing with the right big toe discoloration and gangrene, presented to the hospital with weakness and fall and there was concern for possible cellulitis to the right big toe gangrene site.Patient is status post right hbraj-bgg-insq amputation completed on 11/27/2023 for right big toe ischemia. On today's evaluation that is 11/27/2023 the patient remains to be afebrile he is breathing comfortably on room air patient is sleepy lethargic not a very good historian no vomiting diarrhea or any other changes reported by the nursing staff. Patient did have white count of 6.44 creatinine 0.8 blood culture has been negative Objective - Vital Signs Vital signs: Vital Signs Temp 98.3 F 11/27/23 07:59 Pulse 60 11/27/23 07:59 Resp 16 11/27/23 07:59 BP 161/60 11/27/23 07:59 Pulse Ox 93 L 11/27/23 07:40 FiO2 Intake & Output 11/26/23 11/27/23 11/27/23 18:59 06:59 18:59 Intake Total 118 1000 Output Total 500 700 Balance -382 300 Intake: Intake, IV Titration 1000 Amount Piperacillin-Tazobactam 3 100 .375 gm In Sodium Chloride 0.9% 100 ml @ 25 mls/hr IVPB Q8HR [facility] Rx# :[id number] Sodium Chloride 0.9% 1, 900 000 ml @ 75 mls/hr IV . [id number] [facility] Rx#:[id number] Oral 118 Output: Urine 500 700 Other: Voiding Method External Catheter External Catheter # Voids 1 # Bowel Movements 1 - Exam Elderly male lying in bed in no distress Respiratory system unlabored breathing decreased breath sound the base Heart S1-S2 regular Abdominal soft no tenderness Right AKA stump is covered in the OR dressing Exam completed with the help of THORACIC SURGEON - Labs CBC & Chem 7: 11/27/23 05:59 11/27/23 05:59 Labs: Abnormal Lab Results - Last 24 Hours (Table) 11/26/23 11/26/23 11/27/23 Range/Units 06:25 06:25 05:59 RBC 3.51 L 3.35 L (4.40-5.60) X 10*6/uL Hgb 9.1 L 8.7 L (13.0-17.0) g/dL Hct 29.6 L 27.7 L (39.6-50.0) % MCH 25.9 L 26.0 L (27.0-32.0) pg MCHC 30.7 L 31.4 L (32.0-37.0) g/dL RDW 17.8 H 17.6 H (11.5-14.5) % Lymphocytes # 0.57 L 0.64 L (0.90-5.00) X 10*3/uL Eosinophils # 0.39 H 0.38 H (0.04-0.35) X 10*3/uL Calcium (8.7-10.3) mg/dL AST 45 H (14-35) U/L Alkaline Phosphatase 129 H (41-126) U/L Total Protein 5.5 L (6.2-8.2) g/dL Albumin 3.1 L (3.8-4.9) g/dL Albumin/Globulin Ratio 1.29 L (1.60-3.17) Ratio 11/27/23 Range/Units 05:59 RBC (4.40-5.60) X 10*6/uL Hgb (13.0-17.0) g/dL Hct (39.6-50.0) % MCH (27.0-32.0) pg MCHC (32.0-37.0) g/dL RDW (11.5-14.5) % Lymphocytes # (0.90-5.00) X 10*3/uL Eosinophils # (0.04-0.35) X 10*3/uL Calcium 8.5 L (8.7-10.3) mg/dL AST (14-35) U/L Alkaline Phosphatase 133 H (41-126) U/L Total Protein 5.4 L (6.2-8.2) g/dL Albumin 3.0 L (3.8-4.9) g/dL Albumin/Globulin Ratio 1.25 L (1.60-3.17) Ratio Microbiology - Last 24 Hours (Table) 11/21/23 10:27 Blood Culture - Final Blood Assessment and Plan (1) Gangrene of toe of right foot Current Visit: Yes Status: Acute Code(s): I96 - GANGRENE, NOT ELSEWHERE CLASSIFIED SNOMED Code(s): 27364553339209073 (2) Cellulitis of right foot Current Visit: Yes Status: Acute Code(s): L03.115 - CELLULITIS OF RIGHT LOWER LIMB SNOMED Code(s): 99943817577077029 Plan: 1patient presented to hospital with weakness and did have multiple falls also noticed to be slightly confused patient is not running any fever white count is not significantly elevated but did have a left shift and the patient did have a right big toe gangrene more likely from underlying peripheral arterial disease minimal surrounding redness and a component of secondary cellulitis not entirely excluded 2-patient did have elevated inflammatory markers 3-patient is status post right govpy-lhc-[id number] amputation completed 11/27/2023 4-patient to continue with Zosyn however with infected port removed and the patient not bacteremic he will not need long-term IV antibiotic therapy Dictation was produced using [employer] dictation software. please excuse any gram matical, word or spelling errors. Time with Patient: Less than 30
[2023-11-28] MEDS: PIPERACILLIN-TAZOBACTAM 3.375 GM in SODIUM CHLORIDE 0.9% 100 ML IVPB SCH ×4 (00:18→23:36)
[2023-11-28] MEDS: PANTOPRAZOLE 40 MG TABLET PO SCH (06:12)
[2023-11-28] MEDS: MORPHINE SULFATE 4 MG/ML SYRINGE IV PRN (06:12)
[2023-11-28 09:05] LABS: Basophils # (A) 0.04 X 10*3/uL (0.00-0.10); Basophils % (A) 0.5 %; Eosinophils # (A) 0.21 X 10*3/uL (0.04-0.35); Eosinophils % (A) 2.5 %; HCT 31.6 % (39.6-50.0); HGB 9.8 g/dL (13.0-17.0); Lymphocytes # (A) 0.55 X 10*3/uL (0.90-5.00); Lymphocytes % (A) 6.6 %; MCH 26.6 pg (27.0-32.0); MCV 85.9 FL (80.0-97.0); Monocytes # (A) 0.91 X 10*3/uL (0.20-1.00); Monocytes % (A) 10.9 %; NRBC Per 100 WBC 0 X 10*3/uL (0.00-0.01); Neutrophils # (A) 6.59 X 10*3/uL (1.80-7.70); Neutrophils % (A) 78.9 %; Platelet Count 315 X 10*3/uL (140-440); RBC 3.68 X 10*6/uL (4.40-5.60); RDW 17.2 % (11.5-14.5); WBC 8.35 X 10*3/uL (4.50-10.00)
[2023-11-28] MEDS: hydroCHLOROthiazide 12.5 MG CAP PO SCH (10:11)
[2023-11-28] MEDS: GABAPENTIN 300 MG CAP PO SCH ×3 (10:11→21:45)
[2023-11-28] MEDS: FERROUS SULFATE 325 MG TAB PO SCH (10:11)
[2023-11-28] MEDS: ENOXAPARIN 40 MG/0.4 ML SYRINGE SQ SCH (10:11)
[2023-11-28] MEDS: LACTATED RINGERS 1,000 ML IV SCH (10:12)
[2023-11-28] MEDS: SODIUM CHLORIDE 0.9% 1,000 ML IV SCH ×2 (10:12→23:37)
[2023-11-28 11:12] LABS: ALT 17 U/L (10-49); AST 34 U/L (14-35); Albumin 2.9 g/dL (3.8-4.9); Albumin/Globulin Ratio 1.21 Ratio (1.60-3.17); Alkaline Phosphatase 167 U/L (41-126); BUN/Creat Ratio 13.57 Ratio (12.00-20.00); Blood Urea Nitrogen 9.5 mg/dL (9.0-27.0); Calcium 8.5 mg/dL (8.7-10.3); Carbon Dioxide 24.2 mmol/L (21.6-31.8); Chloride 100 mmol/L (96-109); Globulin 2.4 g/dL (1.6-3.3); Glucose 79 mg/dL (70-110); Potassium 3.9 mmol/L (3.5-5.5); Sodium 138 mmol/L (135-145); Total Bilirubin 0.7 mg/dL (0.3-1.2); Total Protein 5.3 g/dL (6.2-8.2)
--- NOTE | 2023-11-28 12:33 | P.PN ---
Subjective Progress Note Date: 11/28/23 Patient seen and examined. Postoperative day #1 from right above-knee amputation. No complaints. Minimal pain Objective - Vital Signs Vital signs: Vital Signs Temp 98.2 F 11/28/23 07:49 Pulse 71 11/28/23 07:49 Resp 18 11/28/23 07:49 BP 158/64 11/28/23 07:49 Pulse Ox 100 11/28/23 07:49 FiO2 Intake & Output 11/27/23 11/28/23 11/28/23 18:59 06:59 18:59 Intake Total 1316 Output Total 350 900 Balance 966 -900 Weight 58.967 kg Intake: IV 1051 Blood Product 265 Rc Pheresis 2 As3 Unit 265 [id number] Output: Urine 300 900 Estimated Blood Loss 50 Other: Voiding Method External Catheter Diaper Incontinent External Catheter # Voids 2 - Exam No acute distress resting comfortably. Appears alert and oriented. Heart appears regular. Lungs are clear. Abdomen is soft. Right lower extremity dressing clean and dry. - Labs CBC & Chem 7: 11/28/23 05:05 11/28/23 05:05 Labs: Abnormal Lab Results - Last 24 Hours (Table) 11/26/23 11/28/23 11/28/23 Range/Units 09:08 05:05 05:05 RBC 3.68 L (4.40-5.60) X 10*6/uL Hgb 9.8 L (13.0-17.0) g/dL Hct 31.6 L (39.6-50.0) % MCH 26.6 L (27.0-32.0) pg MCHC 31.0 L (32.0-37.0) g/dL RDW 17.2 H (11.5-14.5) % Immature Gran # 0.05 H (0.00-0.04) X 10*3/uL Lymphocytes # 0.55 L (0.90-5.00) X 10*3/uL Anion Gap 13.80 H (4.00-12.00) mmol/L Calcium 8.5 L (8.7-10.3) mg/dL Alkaline Phosphatase 167 H (41-126) U/L Total Protein 5.3 L (6.2-8.2) g/dL Albumin 2.9 L (3.8-4.9) g/dL Albumin/Globulin Ratio 1.21 L (1.60-3.17) Ratio Crossmatch See Detail Assessment and Plan Assessment: Postoperative day #1 right above-knee amputation Peripheral arterial disease Plan: Saravanan appears to be doing quite well after his amputation. [facility] has been notified for rigid dressing and stump shipping & receiving lead. dressing change tomorrow.
--- NOTE | 2023-11-28 13:18 | P.PN ---
Subjective Progress Note Date: 11/27/23 This is an 83-year-old male patient who presented to the ER to be evaluated after sustaining a fall according to records patient was found by a neighbor and EMS was called. Patient reports that he's been falling frequently over the past few days upon arrival head and cervical CT completed showing no evidence of acute intracranial abnormality partially opacified right mastoid air cells age indeterminant. No acute fracture seen and cervical spine degenerative changes. Chest x-ray completed showing no evidence of acute cardiopulmonary disease. Shoulder x-ray completed showing no evidence of acute fracture or dislocation. Pelvis x-ray completed showing mild varus angulation the right proximal tibial versus positional appearance no definitive fracture asymmetric increased opacity superomedial thigh soft tissue versus overlapping structures. Femur x-ray completed showing varices angulation the proximal right femur versus positional appearance note definitive fracture. Patient has past medical history of gangrene is right toe in which she has planned amputation on the . Additional medical history includes hyperlipidemia, hypertension, sciatica, vascular disease with 3 stents in left leg and ex-smoker. At this time patient will be admitted patient noted to have elevated lactic acid will start patient on IV Zosyn and consult vascular surgery along with infectious disease. Current vital signs temp 98.1, heart rate 84, respiratory rate 16, blood pressure 137/73 with pulse ox 99% on room air. At this time patient denies chest pain or shortness breath. Patient denies nausea vomiting or diarrhea. Patient denies any urinary burning or frequency On 11/22/2023 patient was seen and examined on the medical floor he is somnolent responsive in no apparent distress, he is complaining of lower extremities pain otherwise he denies any complaints, there is no fever or chills no headache or dizziness no chest pain no shortness of breath no cough no nausea or vomiting no abdominal pain no diarrhea and no urinary symptoms, vital exam reveals a temperature of 98 pulse 61 respiration 18 blood pressure 174/67 pulse ox 98% on room air white blood count is down to 9.3 hemoglobin 10.0 platelet count 342 creatinine 0.8 input from orthopedic and vascular surgery reviewed On 11/23/2023 patient was seen and examined on the medical floor he is somnolent responsive in no apparent distress, he is complaining of lower extremities pain otherwise he denies any complaints, there is no fever or chills no headache or dizziness no chest pain no shortness of breath no cough no nausea or vomiting no abdominal pain no diarrhea and no urinary symptoms. Plan by vascular surgery to proceed with above knee amputation. infectious disease input reviewed On 11/24/2023 patient alert and oriented 3. Patient reports he did have some hallucinations that he believed secondary to medication. Patient reports symptoms have resolved. Tentative plans for above-knee amputation on 11/27. Patient remains on IV Zosyn. Current vital signs temp 97.9, rate 69, respiratory rate 18, blood pressure 157/62 with a pulse ox 96% on room On 11/25/2023 patient is alert and oriented x 3. Patient remains on IV Zosyn. Plans for amputation on 11/27/2023. Current vital signs Temp 98.3, heart rate 86, respiratory rate 18, blood pressure 165/77 with a pulse ox of 95% on room air. At this time patient denies chest pain or shortness of breath. Patient denies nausea vomiting or diarrhea. Patient denies any urinary burning or frequency. Attempted to call patient's friend greater than 60% of the total time spent in counseling and coordination of care per request but unable to reach him at this time. Will attempt again today. On 11/26/2023 patient was seen and examined on the medical floor he is somnolent oriented in no apparent distress he is still complaining of lower extremity pain however when receiving pain medications patient is having somnolence, he has poor oral intake, he denies any other symptoms at this time there is no fever or chills no headache or dizziness no chest pain no shortness of breath no cough no nausea or vomiting no abdominal pain no diarrhea and no urinary symptoms. He is scheduled for above-knee amputation tomorrow. Continue with current management at this time. He is still maintained on IV Zosyn, infectious disease following. On 11/27/2023 patient was seen and examined on the medical floor he is alert and oriented 3 in no apparent distress, he is still complaining of pain in the right lower extremity otherwise he denies any complaints there is no fever or chills no headache or dizziness no chest pain no shortness of breath no cough no nausea or vomiting no abdominal pain no diarrhea and no urinary symptoms. He is scheduled for right swiuw-jit-dxmv amputation today. Objective - Vital Signs Vital signs: Vital Signs Temp 97.7 F 11/27/23 12:57 Pulse 70 11/27/23 12:52 Resp 18 11/27/23 12:57 BP 165/63 11/27/23 12:57 Pulse Ox 100 11/27/23 12:57 FiO2 Intake & Output 11/26/23 11/27/23 11/27/23 18:59 06:59 18:59 Intake Total 118 1000 1051 Output Total 500 700 50 Balance -534 601 6537 Weight 58.967 kg Intake: IV 1051 Intake, IV Titration 1000 Amount Piperacillin-Tazobactam 3 100 .375 gm In Sodium Chloride 0.9% 100 ml @ 25 mls/hr IVPB Q8HR [facility] Rx# :[id number] Sodium Chloride 0.9% 1, 900 000 ml @ 75 mls/hr IV . [id number] [facility] Rx#:[id number] Oral 118 Output: Urine 500 700 Estimated Blood Loss 50 Other: Voiding Method External Catheter External Catheter External Catheter # Voids 1 # Bowel Movements 1 - Exam Head normocephalic and atraumatic Neck supple no JVD no goiter Lungs clear to auscultation bilaterally no wheezing or crackles Heart regular rate and rhythm S1-S2, no rub or gallop Abdomen is soft nontender nondistended positive bowel sounds no hepatospleno megaly Extremities right greater toe gangrenous black. Erythema noted around foot Neuro alert and orientated to 3 - Labs CBC & Chem 7: 11/28/23 05:05 11/28/23 05:05 Labs: Abnormal Lab Results - Last 24 Hours (Table) 11/26/23 11/27/23 11/27/23 Range/Units 09:08 05:59 05:59 RBC 3.35 L (4.40-5.60) X 10*6/uL Hgb 8.7 L (13.0-17.0) g/dL Hct 27.7 L (39.6-50.0) % MCH 26.0 L (27.0-32.0) pg MCHC 31.4 L (32.0-37.0) g/dL RDW 17.6 H (11.5-14.5) % Lymphocytes # 0.64 L (0.90-5.00) X 10*3/uL Eosinophils # 0.38 H (0.04-0.35) X 10*3/uL Calcium 8.5 L (8.7-10.3) mg/dL Alkaline Phosphatase 133 H (41-126) U/L Total Protein 5.4 L (6.2-8.2) g/dL Albumin 3.0 L (3.8-4.9) g/dL Albumin/Globulin Ratio 1.25 L (1.60-3.17) Ratio Crossmatch See Detail Microbiology - Last 24 Hours (Table) 11/21/23 10:27 Blood Culture - Final Blood Assessment and Plan Assessment: 1. Frequent falls 2. Right hip pain secondary to above 3. Right greater toe gangrene is with elevated lactic acid 4. History of hyperlipidemia 5. History of essential hypertension 6. History of osteoarthritis 7. History of peripheral vascular disease with multiple stents in leg At this time patient will be admitted DVT prophylaxis Lovenox. GI prophylaxis Protonix Patient started on IV antibiotics Vascular, infectious disease and orthopedic service is consulted plans for above-knee amputation on 11/27/2023 Repeat labs ordered
--- NOTE | 2023-11-28 13:18 | P.PN ---
Subjective Progress Note Date: 11/28/23 This is an 83-year-old male patient who presented to the ER to be evaluated after sustaining a fall according to records patient was found by a neighbor and EMS was called. Patient reports that he's been falling frequently over the past few days upon arrival head and cervical CT completed showing no evidence of acute intracranial abnormality partially opacified right mastoid air cells age indeterminant. No acute fracture seen and cervical spine degenerative changes. Chest x-ray completed showing no evidence of acute cardiopulmonary disease. Shoulder x-ray completed showing no evidence of acute fracture or dislocation. Pelvis x-ray completed showing mild varus angulation the right proximal tibial versus positional appearance no definitive fracture asymmetric increased opacity superomedial thigh soft tissue versus overlapping structures. Femur x-ray completed showing varices angulation the proximal right femur versus positional appearance note definitive fracture. Patient has past medical history of gangrene is right toe in which she has planned amputation on the . Additional medical history includes hyperlipidemia, hypertension, sciatica, vascular disease with 3 stents in left leg and ex-smoker. At this time patient will be admitted patient noted to have elevated lactic acid will start patient on IV Zosyn and consult vascular surgery along with infectious disease. Current vital signs temp 98.1, heart rate 84, respiratory rate 16, blood pressure 137/73 with pulse ox 99% on room air. At this time patient denies chest pain or shortness breath. Patient denies nausea vomiting or diarrhea. Patient denies any urinary burning or frequency On 11/22/2023 patient was seen and examined on the medical floor he is somnolent responsive in no apparent distress, he is complaining of lower extremities pain otherwise he denies any complaints, there is no fever or chills no headache or dizziness no chest pain no shortness of breath no cough no nausea or vomiting no abdominal pain no diarrhea and no urinary symptoms, vital exam reveals a temperature of 98 pulse 61 respiration 18 blood pressure 174/67 pulse ox 98% on room air white blood count is down to 9.3 hemoglobin 10.0 platelet count 342 creatinine 0.8 input from orthopedic and vascular surgery reviewed On 11/23/2023 patient was seen and examined on the medical floor he is somnolent responsive in no apparent distress, he is complaining of lower extremities pain otherwise he denies any complaints, there is no fever or chills no headache or dizziness no chest pain no shortness of breath no cough no nausea or vomiting no abdominal pain no diarrhea and no urinary symptoms. Plan by vascular surgery to proceed with above knee amputation. infectious disease input reviewed On 11/24/2023 patient alert and oriented 3. Patient reports he did have some hallucinations that he believed secondary to medication. Patient reports symptoms have resolved. Tentative plans for above-knee amputation on 11/27. Patient remains on IV Zosyn. Current vital signs temp 97.9, rate 69, respiratory rate 18, blood pressure 157/62 with a pulse ox 96% on room On 11/25/2023 patient is alert and oriented x 3. Patient remains on IV Zosyn. Plans for amputation on 11/27/2023. Current vital signs Temp 98.3, heart rate 86, respiratory rate 18, blood pressure 165/77 with a pulse ox of 95% on room air. At this time patient denies chest pain or shortness of breath. Patient denies nausea vomiting or diarrhea. Patient denies any urinary burning or frequency. Attempted to call patient's friend greater than 60% of the total time spent in counseling and coordination of care per request but unable to reach him at this time. Will attempt again today. On 11/26/2023 patient was seen and examined on the medical floor he is somnolent oriented in no apparent distress he is still complaining of lower extremity pain however when receiving pain medications patient is having somnolence, he has poor oral intake, he denies any other symptoms at this time there is no fever or chills no headache or dizziness no chest pain no shortness of breath no cough no nausea or vomiting no abdominal pain no diarrhea and no urinary symptoms. He is scheduled for above-knee amputation tomorrow. Continue with current management at this time. He is still maintained on IV Zosyn, infectious disease following. On 11/27/2023 patient was seen and examined on the medical floor he is alert and oriented 3 in no apparent distress, he is still complaining of pain in the right lower extremity otherwise he denies any complaints there is no fever or chills no headache or dizziness no chest pain no shortness of breath no cough no nausea or vomiting no abdominal pain no diarrhea and no urinary symptoms. He is scheduled for right ecpdi-esi-cvtt amputation today. On 11/28/2023 patient was seen and examined on the medical floor he is alert and oriented 3 in no apparent distress, patient is complaining of pain at the surgical site otherwise he denies any complaints there is no fever or chills no headache or dizziness no chest pain no shortness of breath no cough no nausea or vomiting no abdominal pain no diarrhea and no urinary symptoms Objective - Vital Signs Vital signs: Vital Signs Temp 98.2 F 11/28/23 07:49 Pulse 71 11/28/23 07:49 Resp 18 11/28/23 07:49 BP 158/64 11/28/23 07:49 Pulse Ox 100 11/28/23 07:49 FiO2 Intake & Output 11/27/23 11/28/23 11/28/23 18:59 06:59 18:59 Intake Total 1316 Output Total 350 900 Balance 966 -900 Weight 58.967 kg Intake: IV 1051 Blood Product 265 Rc Pheresis 2 As3 Unit 265 [id number] Output: Urine 300 900 Estimated Blood Loss 50 Other: Voiding Method External Catheter Diaper Incontinent External Catheter # Voids 2 - Exam Head normocephalic and atraumatic Neck supple no JVD no goiter Lungs clear to auscultation bilaterally no wheezing or crackles Heart regular rate and rhythm S1-S2, no rub or gallop Abdomen is soft nontender nondistended positive bowel sounds no hepatosplenomegaly Extremities right greater toe gangrenous black. Erythema noted around foot Neuro alert and orientated to 3 - Labs CBC & Chem 7: 11/28/23 05:05 11/28/23 05:05 Labs: Abnormal Lab Results - Last 24 Hours (Table) 11/26/23 11/28/23 Range/Units 09:08 05:05 RBC 3.68 L (4.40-5.60) X 10*6/uL Hgb 9.8 L (13.0-17.0) g/dL Hct 31.6 L (39.6-50.0) % MCH 26.6 L (27.0-32.0) pg MCHC 31.0 L (32.0-37.0) g/dL RDW 17.2 H (11.5-14.5) % Immature Gran # 0.05 H (0.00-0.04) X 10*3/uL Lymphocytes # 0.55 L (0.90-5.00) X 10*3/uL Crossmatch See Detail Assessment and Plan Assessment: 1. Frequent falls 2. Right hip pain secondary to above 3. Right greater toe gangrene is with elevated lactic acid 4. History of hyperlipidemia 5. History of essential hypertension 6. History of osteoarthritis 7. History of peripheral vascular disease with multiple stents in leg At this time patient will be admitted DVT prophylaxis Lovenox. GI prophylaxis Protonix Patient started on IV antibiotics Vascular, infectious disease and orthopedic service is consulted plans for above-knee amputation on 11/27/2023 Repeat labs ordered
[2023-11-28] MEDS: ATORVASTATIN 40 MG TAB PO SCH (21:45)
[2023-11-28] MEDS: LATANOPROST 0.005% OPHTH DROPS 2.5 ML BTL BOTH EYES SCH (21:45)
[2023-11-29] MEDS: HYDROcodone/APAP 10-325MG 1 EACH TAB PO PRN ×2 (02:16→11:20)
[2023-11-29] MEDS: PANTOPRAZOLE 40 MG TABLET PO SCH (06:20)
[2023-11-29] MEDS ORDERED: ONDANSETRON 4 MG/2 ML VIAL IVP PRN (09:23)
--- NOTE | 2023-11-29 09:46 | P.PN ---
Subjective Progress Note Date: 11/29/23 This is an 83-year-old male patient who presented to the ER to be evaluated after sustaining a fall according to records patient was found by a neighbor and EMS was called. Patient reports that he's been falling frequently over the past few days upon arrival head and cervical CT completed showing no evidence of acute intracranial abnormality partially opacified right mastoid air cells age indeterminant. No acute fracture seen and cervical spine degenerative changes. Chest x-ray completed showing no evidence of acute cardiopulmonary disease. Shoulder x-ray completed showing no evidence of acute fracture or dislocation. Pelvis x-ray completed showing mild varus angulation the right proximal tibial versus positional appearance no definitive fracture asymmetric increased opacity superomedial thigh soft tissue versus overlapping structures. Femur x-ray completed showing varices angulation the proximal right femur versus positional appearance note definitive fracture. Patient has past medical history of gangrene is right toe in which she has planned amputation on the . Additional medical history includes hyperlipidemia, hypertension, sciatica, vascular disease with 3 stents in left leg and ex-smoker. At this time patient will be admitted patient noted to have elevated lactic acid will start patient on IV Zosyn and consult vascular surgery along with infectious disease. Current vital signs temp 98.1, heart rate 84, respiratory rate 16, blood pressure 137/73 with pulse ox 99% on room air. At this time patient denies chest pain or shortness breath. Patient denies nausea vomiting or diarrhea. Patient denies any urinary burning or frequency On 11/22/2023 patient was seen and examined on the medical floor he is somnolent responsive in no apparent distress, he is complaining of lower extremities pain otherwise he denies any complaints, there is no fever or chills no headache or dizziness no chest pain no shortness of breath no cough no nausea or vomiting no abdominal pain no diarrhea and no urinary symptoms, vital exam reveals a temperature of 98 pulse 61 respiration 18 blood pressure 174/67 pulse ox 98% on room air white blood count is down to 9.3 hemoglobin 10.0 platelet count 342 creatinine 0.8 input from orthopedic and vascular surgery reviewed On 11/23/2023 patient was seen and examined on the medical floor he is somnolent responsive in no apparent distress, he is complaining of lower extremities pain otherwise he denies any complaints, there is no fever or chills no headache or dizziness no chest pain no shortness of breath no cough no nausea or vomiting no abdominal pain no diarrhea and no urinary symptoms. Plan by vascular surgery to proceed with above knee amputation. infectious disease input reviewed On 11/24/2023 patient alert and oriented 3. Patient reports he did have some hallucinations that he believed secondary to medication. Patient reports symptoms have resolved. Tentative plans for above-knee amputation on 11/27. Patient remains on IV Zosyn. Current vital signs temp 97.9, rate 69, respiratory rate 18, blood pressure 157/62 with a pulse ox 96% on room On 11/25/2023 patient is alert and oriented x 3. Patient remains on IV Zosyn. Plans for amputation on 11/27/2023. Current vital signs Temp 98.3, heart rate 86, respiratory rate 18, blood pressure 165/77 with a pulse ox of 95% on room air. At this time patient denies chest pain or shortness of breath. Patient denies nausea vomiting or diarrhea. Patient denies any urinary burning or frequency. Attempted to call patient's friend greater than 60% of the total time spent in counseling and coordination of care per request but unable to reach him at this time. Will attempt again today. On 11/26/2023 patient was seen and examined on the medical floor he is somnolent oriented in no apparent distress he is still complaining of lower extremity pain however when receiving pain medications patient is having somnolence, he has poor oral intake, he denies any other symptoms at this time there is no fever or chills no headache or dizziness no chest pain no shortness of breath no cough no nausea or vomiting no abdominal pain no diarrhea and no urinary symptoms. He is scheduled for above-knee amputation tomorrow. Continue with current management at this time. He is still maintained on IV Zosyn, infectious disease following. On 11/27/2023 patient was seen and examined on the medical floor he is alert and oriented 3 in no apparent distress, he is still complaining of pain in the right lower extremity otherwise he denies any complaints there is no fever or chills no headache or dizziness no chest pain no shortness of breath no cough no nausea or vomiting no abdominal pain no diarrhea and no urinary symptoms. He is scheduled for right ywfqu-vxy-iexh amputation today. On 11/28/2023 patient was seen and examined on the medical floor he is alert and oriented 3 in no apparent distress, patient is complaining of pain at the surgical site otherwise he denies any complaints there is no fever or chills no headache or dizziness no chest pain no shortness of breath no cough no nausea or vomiting no abdominal pain no diarrhea and no urinary symptoms. On 11/29 2023 patient was seen and examined on the medical floor he is alert and oriented 3 in no apparent distress he is complaining of nausea he is still complaining of pain at the surgical site, he is complaining of difficulty sleeping at night, otherwise he denies any complaints there is no fever or chills no headache or dizziness no chest pain no shortness of breath no cough no vomiting no abdominal pain no diarrhea and no urinary symptoms Objective - Vital Signs Vital signs: Vital Signs Temp 98.2 F 11/29/23 07:15 Pulse 59 L 11/29/23 07:15 Resp 18 11/29/23 07:15 BP 135/59 11/29/23 07:15 Pulse Ox 93 L 11/29/23 07:15 FiO2 Intake & Output 11/28/23 11/29/23 11/29/23 18:59 06:59 18:59 Output Total 600 800 Balance -600 -800 Output: Urine 600 800 Other: Voiding Method Diaper Incontinent External Catheter # Voids 1 - Exam Head normocephalic and atraumatic Neck supple no JVD no goiter Lungs clear to auscultation bilaterally no wheezing or crackles Heart regular rate and rhythm S1-S2, no rub or gallop Abdomen is soft nontender nondistended positive bowel sounds no hepatosplenomegaly Extremities right greater toe gangrenous black. Erythema noted around foot Neuro alert and orientated to 3 - Labs CBC & Chem 7: 11/28/23 05:05 11/28/23 05:05 Labs: Abnormal Lab Results - Last 24 Hours (Table) 11/28/23 11/28/23 Range/Units 05:05 05:05 RBC 3.68 L (4.40-5.60) X 10*6/uL Hgb 9.8 L (13.0-17.0) g/dL Hct 31.6 L (39.6-50.0) % MCH 26.6 L (27.0-32.0) pg MCHC 31.0 L (32.0-37.0) g/dL RDW 17.2 H (11.5-14.5) % Immature Gran # 0.05 H (0.00-0.04) X 10*3/uL Lymphocytes # 0.55 L (0.90-5.00) X 10*3/uL Anion Gap 13.80 H (4.00-12.00) mmol/L Calcium 8.5 L (8.7-10.3) mg/dL Alkaline Phosphatase 167 H (41-126) U/L Total Protein 5.3 L (6.2-8.2) g/dL Albumin 2.9 L (3.8-4.9) g/dL Albumin/Globulin Ratio 1.21 L (1.60-3.17) Ratio Assessment and Plan Assessment: 1. Frequent falls 2. Right hip pain secondary to above 3. Right greater toe gangrene is with elevated lactic acid 4. History of hyperlipidemia 5. History of essential hypertension 6. History of osteoarthritis 7. History of peripheral vascular disease with multiple stents in leg At this time patient will be admitted DVT prophylaxis Lovenox. GI prophylaxis Protonix Patient started on IV antibiotics Vascular, infectious disease and orthopedic service is consulted plans for above-knee amputation on 11/27/2023 Repeat labs ordered
[2023-11-29] MEDS: hydroCHLOROthiazide 12.5 MG CAP PO SCH (10:04)
[2023-11-29] MEDS: PIPERACILLIN-TAZOBACTAM 3.375 GM in SODIUM CHLORIDE 0.9% 100 ML IVPB SCH ×3 (10:04→23:11)
[2023-11-29] MEDS: GABAPENTIN 300 MG CAP PO SCH ×3 (10:04→21:24)
[2023-11-29] MEDS: ENOXAPARIN 40 MG/0.4 ML SYRINGE SQ SCH (10:04)
[2023-11-29] MEDS: FERROUS SULFATE 325 MG TAB PO SCH (10:04)
[2023-11-29 10:23] LABS: Basophils # (A) 0.03 X 10*3/uL (0.00-0.10); Basophils % (A) 0.4 %; Eosinophils # (A) 0.12 X 10*3/uL (0.04-0.35); Eosinophils % (A) 1.5 %; HCT 29.6 % (39.6-50.0); HGB 9.4 g/dL (13.0-17.0); Lymphocytes # (A) 0.53 X 10*3/uL (0.90-5.00); Lymphocytes % (A) 6.4 %; MCH 26.4 pg (27.0-32.0); MCHC 31.8 g/dL (32.0-37.0); MCV 83.1 FL (80.0-97.0); Mean Platelet Volume 9.7 FL (9.5-12.2); Monocytes # (A) 0.93 X 10*3/uL (0.20-1.00); Monocytes % (A) 11.3 %; NRBC Per 100 WBC 0 X 10*3/uL (0.00-0.01); Neutrophils # (A) 6.59 X 10*3/uL (1.80-7.70); Neutrophils % (A) 79.9 %; Platelet Count 341 X 10*3/uL (140-440); RBC 3.56 X 10*6/uL (4.40-5.60); RDW 17.1 % (11.5-14.5); WBC 8.24 X 10*3/uL (4.50-10.00)
[2023-11-29 11:24] LABS: ALT 18 U/L (10-49); AST 33 U/L (14-35); Albumin 2.9 g/dL (3.8-4.9); Albumin/Globulin Ratio 1.21 Ratio (1.60-3.17); Alkaline Phosphatase 197 U/L (41-126); BUN/Creat Ratio 16.14 Ratio (12.00-20.00); Blood Urea Nitrogen 11.3 mg/dL (9.0-27.0); Calcium 8.4 mg/dL (8.7-10.3); Carbon Dioxide 27.3 mmol/L (21.6-31.8); Chloride 101 mmol/L (96-109); Globulin 2.4 g/dL (1.6-3.3); Glucose 127 mg/dL (70-110); Potassium 3.4 mmol/L (3.5-5.5); Sodium 138 mmol/L (135-145); Total Bilirubin 0.4 mg/dL (0.3-1.2); Total Protein 5.3 g/dL (6.2-8.2)
[2023-11-29] MEDS ORDERED: Potassium Replacement Protocol 1 EACH MISC MISCELLANE PRN ×2 (11:33→17:15)
[2023-11-29] MEDS: LACTATED RINGERS 1,000 ML IV SCH (12:44)
[2023-11-29] MEDS: SODIUM CHLORIDE 0.9% 1,000 ML IV SCH ×2 (13:21→21:26)
[2023-11-29] MEDS: POTASSIUM CHLORIDE ER 20 MEQ TAB.ER PO SCH ×4 (13:21→21:25)
--- NOTE | 2023-11-29 14:38 | P.PN ---
Subjective Progress Note Date: 11/29/23 Principal diagnosis: right lower leg ischemia Patient seen and examined. Doing well, no complaints. States pain is improved Objective - Vital Signs Vital signs: Vital Signs Temp 98.5 F 11/29/23 13:32 Pulse 74 11/29/23 13:32 Resp 18 11/29/23 13:32 BP 105/53 11/29/23 13:32 Pulse Ox 97 11/29/23 13:32 FiO2 Intake & Output 11/28/23 11/29/23 11/29/23 18:59 06:59 18:59 Output Total 600 800 Balance -600 -800 Output: Urine 600 800 Other: Voiding Method Diaper Incontinent Incontinent External Catheter # Voids 1 - Exam Right AKA site with dressings in place, clean, dry and intact - Labs CBC & Chem 7: 11/29/23 04:08 11/29/23 04:08 Labs: Abnormal Lab Results - Last 24 Hours (Table) 11/29/23 11/29/23 Range/Units 04:08 04:08 RBC 3.56 L (4.40-5.60) X 10*6/uL Hgb 9.4 L (13.0-17.0) g/dL Hct 29.6 L (39.6-50.0) % MCH 26.4 L (27.0-32.0) pg MCHC 31.8 L (32.0-37.0) g/dL RDW 17.1 H (11.5-14.5) % Lymphocytes # 0.53 L (0.90-5.00) X 10*3/uL Potassium 3.4 L (3.5-5.5) mmol/L Glucose 127 H (70-110) mg/dL Calcium 8.4 L (8.7-10.3) mg/dL Alkaline Phosphatase 197 H (41-126) U/L Total Protein 5.3 L (6.2-8.2) g/dL Albumin 2.9 L (3.8-4.9) g/dL Albumin/Globulin Ratio 1.21 L (1.60-3.17) Ratio Assessment and Plan Assessment: POD 2 Right AKA Right lower extremity chronic ischemia Right great toe ischemic changes Peripheral arterial disease with critical limb ischemia on the right Confusion Recent fall Plan: Dressing change tomorrow. continue pain control PT/OT to evaluate Will likely require rehab upon discharge
[2023-11-29] MEDS: ATORVASTATIN 40 MG TAB PO SCH (21:24)
[2023-11-29] MEDS: LATANOPROST 0.005% OPHTH DROPS 2.5 ML BTL BOTH EYES SCH (21:25)
[2023-11-30] MEDS: PANTOPRAZOLE 40 MG TABLET PO SCH (06:37)
[2023-11-30] MEDS: ENOXAPARIN 40 MG/0.4 ML SYRINGE SQ SCH (08:08)
[2023-11-30] MEDS: PIPERACILLIN-TAZOBACTAM 3.375 GM in SODIUM CHLORIDE 0.9% 100 ML IVPB SCH (08:08)
[2023-11-30] MEDS: FERROUS SULFATE 325 MG TAB PO SCH (08:09)
[2023-11-30] MEDS: GABAPENTIN 300 MG CAP PO SCH ×2 (08:09→17:14)
[2023-11-30] MEDS: hydroCHLOROthiazide 12.5 MG CAP PO SCH (08:09)
[2023-11-30 08:29] LABS: Basophils # (A) 0.03 X 10*3/uL (0.00-0.10); Basophils % (A) 0.5 %; Eosinophils # (A) 0.39 X 10*3/uL (0.04-0.35); Eosinophils % (A) 5.9 %; HCT 28.7 % (39.6-50.0); HGB 9.2 g/dL (13.0-17.0); Lymphocytes # (A) 0.57 X 10*3/uL (0.90-5.00); Lymphocytes % (A) 8.6 %; MCH 27.2 pg (27.0-32.0); MCHC 32.1 g/dL (32.0-37.0); MCV 84.9 FL (80.0-97.0); Mean Platelet Volume 10.3 FL (9.5-12.2); Monocytes # (A) 0.63 X 10*3/uL (0.20-1.00); Monocytes % (A) 9.5 %; NRBC Per 100 WBC 0 X 10*3/uL (0.00-0.01); Neutrophils # (A) 4.95 X 10*3/uL (1.80-7.70); Platelet Count 324 X 10*3/uL (140-440); RBC 3.38 X 10*6/uL (4.40-5.60); RDW 17.5 % (11.5-14.5)
[2023-11-30 08:43] VITALS: RESP 19
[2023-11-30 09:05] LABS: ALT 22 U/L (10-49); AST 66 U/L (14-35); Albumin 2.8 g/dL (3.8-4.9); Albumin/Globulin Ratio 1.22 Ratio (1.60-3.17); Alkaline Phosphatase 199 U/L (41-126); BUN/Creat Ratio 14.57 Ratio (12.00-20.00); Blood Urea Nitrogen 10.2 mg/dL (9.0-27.0); Calcium 8.1 mg/dL (8.7-10.3); Carbon Dioxide 25.9 mmol/L (21.6-31.8); Chloride 104 mmol/L (96-109); Globulin 2.3 g/dL (1.6-3.3); Glucose 89 mg/dL (70-110); Potassium 4.5 mmol/L (3.5-5.5); Sodium 139 mmol/L (135-145); Total Bilirubin 0.5 mg/dL (0.3-1.2); Total Protein 5.1 g/dL (6.2-8.2)
[2023-11-30] MEDS: MORPHINE SULFATE 4 MG/ML SYRINGE IV PRN (11:06)
--- NOTE | 2023-11-30 12:35 | P.PN ---
Subjective Progress Note Date: 11/30/23 Principal diagnosis: Right lower extremity chronic ischemia with right great toe ischemic changes Patient is seen and examined today as a follow-up. He is postop day #3 for right cufrj-obf-xgyd amputation. He states his pain is much better controlled. [facility] will come by today for stump cadd drafter and rigid dressing. Objective - Vital Signs Vital signs: Vital Signs Temp 98.4 F 11/30/23 07:27 Pulse 68 11/30/23 07:27 Resp 19 11/30/23 07:27 BP 160/71 11/30/23 07:27 Pulse Ox 96 11/30/23 07:27 FiO2 Intake & Output 11/29/23 11/30/23 11/30/23 18:59 06:59 18:59 Output Total 650 600 Balance -650 -600 Output: Urine 650 600 Other: Voiding Method Incontinent Incontinent External Catheter # Voids 1 # Bowel Movements 1 - Exam General appearance: The patient is alert, oriented, appears in no acute distress. HET: Head is normocephalic and atraumatic. Pupils are equal and reactive. Neck: Supple. Abdomen: Soft, nondistended. Extremities: Right iozep-nix-dsks amputation with dressing clean dry and intact. Dressing removed surgical incision well-approximated with bola, surrounding pink tissue which is warm to the touch. Neurological: No focal deficits noted. - Labs CBC & Chem 7: 11/30/23 03:59 11/30/23 03:59 Labs: Abnormal Lab Results - Last 24 Hours (Table) 11/29/23 11/29/23 11/29/23 Range/Units 04:08 04:08 16:28 RBC 3.56 L (4.40-5.60) X 10*6/uL Hgb 9.4 L (13.0-17.0) g/dL Hct 29.6 L (39.6-50.0) % MCH 26.4 L (27.0-32.0) pg MCHC 31.8 L (32.0-37.0) g/dL RDW 17.1 H (11.5-14.5) % Lymphocytes # 0.53 L (0.90-5.00) X 10*3/uL Eosinophils # (0.04-0.35) X 10*3/uL Potassium 3.4 L 3.2 L (3.5-5.5) mmol/L Glucose 127 H (70-110) mg/dL Calcium 8.4 L (8.7-10.3) mg/dL Alkaline Phosphatase 197 H (41-126) U/L Total Protein 5.3 L (6.2-8.2) g/dL Albumin 2.9 L (3.8-4.9) g/dL Albumin/Globulin Ratio 1.21 L (1.60-3.17) Ratio 11/30/23 Range/Units 03:59 RBC 3.38 L (4.40-5.60) X 10*6/uL Hgb 9.2 L (13.0-17.0) g/dL Hct 28.7 L (39.6-50.0) % MCH (27.0-32.0) pg MCHC (32.0-37.0) g/dL RDW 17.5 H (11.5-14.5) % Lymphocytes # 0.57 L (0.90-5.00) X 10*3/uL Eosinophils # 0.39 H (0.04-0.35) X 10*3/uL Potassium (3.5-5.5) mmol/L Glucose (70-110) mg/dL Calcium (8.7-10.3) mg/dL Alkaline Phosphatase (41-126) U/L Total Protein (6.2-8.2) g/dL Albumin (3.8-4.9) g/dL Albumin/Globulin Ratio (1.60-3.17) Ratio Assessment and Plan Assessment: 1. Right lower extremity chronic ischemia status post right [id number]-pmc-[id number] amputation 2. Right great toe ischemic changes 3. Peripheral arterial disease with critical limb ischemia on the right 4. Confusion 5. Recent fall Plan: 1. Continue with physical therapy 2. Stump cadd drafter and rigid dressing per [facility] 3. Dressing changes as needed with [employer], 4 x 4 stump cadd drafter and rigid dressing 4. Patient is cleared from vascular surgery for discharge 5. Rest of medical management management per primary medical team Thank you for this consultation. The impression and plan of care has been dictated as directed. I performed a history and examination of this patient, discussed the same with the dictator. I agree with the dictator's note ,documented as a scribe. Any additional findings or plans will be noted.
[2023-11-30 13:52] VITALS: BP 153/69; PULSE 76; TEMP 97.3
[2023-11-30] MEDS: SODIUM CHLORIDE 0.9% 1,000 ML IV SCH (15:42)
[2023-11-30] MEDS: LACTATED RINGERS 1,000 ML IV SCH (15:42)
--- NOTE | 2023-11-30 15:49 | P.DS ---
Providers Date of admission: 11/21/23 06:42 Expected date of discharge: 11/30/23 Attending physician: Blake Barber Consults: 11/21/23 03:30 Consult Physician Urgent Consulting Provider: Dejuan David Consult Reason/Comments: gangrene Do you want consulting provider notified?: Yes, Notify in am 11/21/23 09:55 Consult Physician Routine Consulting Provider: Tyree Lux Consult Reason/Comments: gangerous toe Do you want consulting provider notified?: Yes 11/21/23 10:19 Consult Physician Routine Consulting Provider: Gigi Guallpa Consult Reason/Comments: right hip pain Do you want consulting provider notified?: Yes Primary care physician: Blake [facility] Course: Diagnosis on discharge: 1. Frequent falls 2. Right hip pain secondary to above 3. Right great toe gangrene is with elevated lactic acid, patient received IV Zosyn during this admission he was evaluated by infectious disease 4. History of hyperlipidemia 5. History of essential hypertension 6. History of osteoarthritis 7. History of peripheral vascular disease with multiple stents in leg 8. Right great toe gangrene, with evidence of severe peripheral vascular disease and chronic right lower extremity ischemia, patient underwent right above-knee amputation during this admission Hospital course: This is an 83-year-old male patient who presented to the ER to be evaluated after sustaining a fall according to records patient was found by a neighbor and EMS was called. Patient reports that he's been falling frequently over the past few days upon arrival head and cervical CT completed showing no evidence of acute intracranial abnormality partially opacified right mastoid air cells age indeterminant. No acute fracture seen and cervical spine degenerative changes. Chest x-ray completed showing no evidence of acute cardiopulmonary disease. Shoulder x-ray completed showing no evidence of acute fracture or dislocation. Pelvis x-ray completed showing mild varus angulation the right proximal tibial versus positional appearance no definitive fracture asymmetric increased opacity superomedial thigh soft tissue versus overlapping structures. Femur x-ray completed showing varices angulation the proximal right femur versus positional appearance note definitive fracture. Patient has past medical history of gangrene is right toe in which she has planned amputation on the . Additional medical history includes hyperlipidemia, hypertension, sciatica, vascular disease with 3 stents in left leg and ex-smoker. At this time patient will be admitted patient noted to have elevated lactic acid will start patient on IV Zosyn and consult vascular surgery along with infectious disease. Current vital signs temp 98.1, heart rate 84, respiratory rate 16, blood pressure 137/73 with pulse ox 99% on room air. At this time patient denies chest pain or shortness breath. Patient denies nausea vomiting or diarrhea. Patient denies any urinary burning or frequency On 11/22/2023 patient was seen and examined on the medical floor he is somnolent responsive in no apparent distress, he is complaining of lower extremities pain otherwise he denies any complaints, there is no fever or chills no headache or dizziness no chest pain no shortness of breath no cough no nausea or vomiting no abdominal pain no diarrhea and no urinary symptoms, vital exam reveals a temperature of 98 pulse 61 respiration 18 blood pressure 174/67 pulse ox 98% on room air white blood count is down to 9.3 hemoglobin 10.0 platelet count 342 creatinine 0.8 input from orthopedic and vascular surgery reviewed On 11/23/2023 patient was seen and examined on the medical floor he is somnolent responsive in no apparent distress, he is complaining of lower extremities pain otherwise he denies any complaints, there is no fever or chills no headache or dizziness no chest pain no shortness of breath no cough no nausea or vomiting no abdominal pain no diarrhea and no urinary symptoms. Plan by vascular surgery to proceed with above knee amputation. infectious disease input reviewed On 11/24/2023 patient alert and oriented 3. Patient reports he did have some hallucinations that he believed secondary to medication. Patient reports symptoms have resolved. Tentative plans for above-knee amputation on 11/27. Patient remains on IV Zosyn. Current vital signs temp 97.9, rate 69, respiratory rate 18, blood pressure 157/62 with a pulse ox 96% on room On 11/25/2023 patient is alert and oriented x 3. Patient remains on IV Zosyn. Plans for amputation on 11/27/2023. Current vital signs Temp 98.3, heart rate 86, respiratory rate 18, blood pressure 165/77 with a pulse ox of 95% on room air. At this time patient denies chest pain or shortness of breath. Patient denies nausea vomiting or diarrhea. Patient denies any urinary burning or frequency. Attempted to call patient's friend greater than 60% of the total time spent in counseling and coordination of care per request but unable to reach him at this time. Will attempt again today. On 11/26/2023 patient was seen and examined on the medical floor he is somnolent oriented in no apparent distress he is still complaining of lower extremity pain however when receiving pain medications patient is having somnolence, he has poor oral intake, he denies any other symptoms at this time there is no fever or chills no headache or dizziness no chest pain no shortness of breath no cough no nausea or vomiting no abdominal pain no diarrhea and no urinary symptoms. He is scheduled for above-knee amputation tomorrow. Continue with current management at this time. He is still maintained on IV Zosyn, infectious disease following. On 11/27/2023 patient was seen and examined on the medical floor he is alert and oriented 3 in no apparent distress, he is still complaining of pain in the right lower extremity otherwise he denies any complaints there is no fever or chills no headache or dizziness no chest pain no shortness of breath no cough no nausea or vomiting no abdominal pain no diarrhea and no urinary symptoms. He is scheduled for right ssgdt-[id number]-zcik amputation today. On 11/28/2023 patient was seen and examined on the medical floor he is alert and oriented 3 in no apparent distress, patient is complaining of pain at the surgical site otherwise he denies any complaints there is no fever or chills no headache or dizziness no chest pain no shortness of breath no cough no nausea or vomiting no abdominal pain no diarrhea and no urinary symptoms. On 11/29 2023 patient was seen and examined on the medical floor he is alert and oriented 3 in no apparent distress he is complaining of nausea he is still complaining of pain at the surgical site, he is complaining of difficulty sleeping at night, otherwise he denies any complaints there is no fever or chills no headache or dizziness no chest pain no shortness of breath no cough no vomiting no abdominal pain no diarrhea and no urinary symptoms On 11/30/2023 patient was seen and examined on the medical floor he is more alert and oriented today his pain is better controlled there is no fever or chills no headache or dizziness no chest pain no shortness of breath no cough no nausea or vomiting no abdominal pain no diarrhea and no urinary symptoms. Patient was cleared by vascular surgery for transfer to rehab unit. Case was discussed was Dr. Lux infectious disease, no need for any further antibiotic therapy at this point per Dr. Lux. Patient Condition at Discharge: Stable Plan - Discharge Summary Discharge Rx Participant: Yes New Discharge Prescriptions: New Pantoprazole [Protonix] 40 mg PO AC-BRKFST tab Continue Dorzolamide/Timolol/Pf [Cosopt Pf 2%/0.5% Ophth Droperette] 1 drop BOTH EYES BID Simvastatin [Zocor] 40 mg PO HS hydroCHLOROthiazide [Hydrodiuril] 12.5 mg PO DAILY HYDROcodone/APAP 10-325MG [[place] 10-325] 1 tab PO BID PRN PRN Reason: Pain Clopidogrel Bisulfate [Plavix] 75 mg PO DIRECTED Gabapentin 600 mg PO TID methocarbamoL 750 mg PO TID PRN #12 tablet PRN Reason: Pain Ferrous Sulfate [Iron (65 MG Elemental)] 325 mg PO DAILY Latanoprost [Latanoprost 0.005%] 1 drop BOTH EYES HS Discharge Medication List Dorzolamide/Timolol/Pf [Cosopt Pf 2%/0.5% Ophth Droperette] 1 drop BOTH EYES BID 03/18/17 [History] Simvastatin [Zocor] 40 mg PO HS 12/06/20 [History] hydroCHLOROthiazide [Hydrodiuril] 12.5 mg PO DAILY 12/06/20 [History] HYDROcodone/APAP 10-325MG [[place] 10-325] 1 tab PO BID PRN 03/14/21 [History] Clopidogrel Bisulfate [Plavix] 75 mg PO DIRECTED 09/01/23 [History] methocarbamoL 750 mg PO TID PRN #12 tablet 10/28/23 [Rx] Ferrous Sulfate [Iron (65 MG Elemental)] 325 mg PO DAILY 11/03/23 [History] Latanoprost [Latanoprost 0.005%] 1 drop BOTH EYES HS 11/03/23 [History] Gabapentin 600 mg PO TID 11/21/23 [History] Pantoprazole [Protonix] 40 mg PO AC-BRKFST tab 11/30/23 [Rx] Follow up Appointment(s)/Referral(s): Anais Wiggins, [Doctor of Osteopathic Medicine] - As Needed (Patient may follow-up with Dr. Carlos Wiggins at [facility] on an as needed basis following discharge. ) Dejuan David DO [STAFF PHYSICIAN] - 2 Weeks Courtney Ramirez [NON-STAFF] - As Needed Blake Barber MD [Primary Care Provider] - 1-2 days Activity/Diet/Wound Care/Special Instructions: Stump farm worker and rigid dressing ordered through [facility]: #[phone] Keep stump farm worker and rigid dressing in place. Rigid dressing may come off as needed. Dressing change as needed with [employer], 4 x 4 and stump farm worker
--- NOTE | 2023-12-02 07:27 | CDI ---
Documentation Clarification Form Date: 12/02/23 From: Savannah Mclaughlin Admit Date: 11/21/2023 06:42:00 AM Patient Name: Saravanan Sharma Visit Number: [id number] Discharge Date: 11/30/2023 06:07:00 PM ATTENTION: The Clinical Documentation Specialists (CDI) and [facility] Coding Staff appreciate your assistance in clarifying documentation. Please respond to the clarification below the line at the bottom and electronically sign. The CDI & [facility] Coding staff will review the response and follow-up if needed. Please note: Queries are made part of the Legal Health Record. If you have any questions, please contact the author of this message via ITS. Dr. Blake Barber, A left buttock stage II pressure ulcer is documented by Wound Care on 11/29/23. Based on this information and the findings below, is there an additional diagnosis that is clinically appropriate for this patient? History/Risk Factors: ASPVD of right leg w gangrene, cellulitis of right lower limb, HTN, HLD Clinical Indicators: Stage II, 3 cm x 2 cm Location: Left buttock Wound description: red/pink, no necrosis, distinct wound margins Treatment: foam w border Is there an additional diagnosis that is clinically appropriate for this patient? [x ] Left Buttock Pressure Ulcer Stage 2 [ ] Other condition, please specify [ ] Unable to determine Clinical Definitions: Stage 1 Pressure Ulcer: intact skin, non-blanching redness of local area Stage 2 Pressure Ulcer: Partial thickness, loss of dermis, pink wound bed Stage 3 Pressure Ulcer: Full thickness tissue loss Stage 4 Pressure Ulcer: Full thickness tissue loss with exposed bone, tendon, or muscle. Unstageable pressure ulcer: Full thickness tissue loss in which the base of the ulcer is covered by slough (yellow, bingham, ta, green or brown) and/or eschar (bingham, brown or black) in the wound bed. MTDD
--- NOTE | 2023-12-07 12:07 | P.PN ---
Subjective Progress Note Date: 11/28/23 Principal diagnosis: Reason for follow-up is right big toe gangrene and cellulitis This is a telehealth visit Patient is a 83-year-old male with a past medical history significant for hypertension hyperlipidemia osteoarthritis also with a history of peripheral arterial disease status post right femoral to popliteal bypass subsequently did have a right groin infection requiring debridement an removald bypass graft patient apparently has been dealing with the right big toe discoloration and gangrene, presented to the hospital with weakness and fall and there was concern for possible cellulitis to the right big toe gangrene site.Patient is status post right imgbc-cix-chwr amputation completed on 11/27/2023 for right big toe ischemia. On today's evaluation that is 11/28/2023 the patient continues s to be afebrile he is breathing comfortably on room air patient is slightly more awake today denies any chest pain shortness of breath or cough complaining of pain to the right AKA stump no vomiting or diarrhea has been reported Patient did have white count of 8.35 creatinine 0.7 blood culture has been negative Objective - Vital Signs Vital signs: Vital Signs Temp 98.2 F 11/28/23 07:49 Pulse 71 11/28/23 07:49 Resp 18 11/28/23 07:49 BP 158/64 11/28/23 07:49 Pulse Ox 100 11/28/23 07:49 FiO2 Intake & Output 11/27/23 11/28/23 11/28/23 18:59 06:59 18:59 Intake Total 1316 Output Total 350 900 Balance 966 -900 Weight 58.967 kg Intake: IV 1051 Blood Product 265 Rc Pheresis 2 As3 Unit 265 [id number] Output: Urine 300 900 Estimated Blood Loss 50 Other: Voiding Method External Catheter Diaper Incontinent External Catheter # Voids 2 - Exam Elderly male lying in bed in no distress Respiratory system unlabored breathing decreased breath sound the base Heart S1-S2 regular Abdominal soft no tenderness Right AKA stump is covered in the OR dressing Exam completed with the help of CLINICAL APPLICATION SPECIALIST - Labs CBC & Chem 7: 11/30/23 03:59 11/30/23 03:59 Labs: Abnormal Lab Results - Last 24 Hours (Table) 11/26/23 11/28/23 Range/Units 09:08 05:05 RBC 3.68 L (4.40-5.60) X 10*6/uL Hgb 9.8 L (13.0-17.0) g/dL Hct 31.6 L (39.6-50.0) % MCH 26.6 L (27.0-32.0) pg MCHC 31.0 L (32.0-37.0) g/dL RDW 17.2 H (11.5-14.5) % Immature Gran # 0.05 H (0.00-0.04) X 10*3/uL Lymphocytes # 0.55 L (0.90-5.00) X 10*3/uL Crossmatch See Detail Assessment and Plan (1) Gangrene of toe of right foot Status: Acute Code(s): I96 - GANGRENE, NOT ELSEWHERE CLASSIFIED SNOMED Code(s): 66896944066933019 (2) Cellulitis of right foot Status: Acute Code(s): L03.115 - CELLULITIS OF RIGHT LOWER LIMB SNOMED Code(s): 41310399832337369 Plan: 1patient presented to hospital with weakness and did have multiple falls also noticed to be slightly confused patient is not running any fever white count is not significantly elevated but did have a left shift and the patient did have a right big toe gangrene more likely from underlying peripheral arterial disease minimal surrounding redness and a component of secondary cellulitis not entirely excluded 2-patient did have elevated inflammatory markers 3-patient is status post right npmgx-qku-qvlw amputation completed 11/27/2023 4-patient to continue with Zosyn while inpatient and monitor clinical course closely Dictation was produced using [employer] dictation software. please excuse any grammatical, word or spelling errors. Time with Patient: Less than 30
--- NOTE | 2023-12-07 12:08 | P.PN ---
Subjective Progress Note Date: 11/29/23 Principal diagnosis: Reason for follow-up is right big toe gangrene and cellulitis This is a telehealth visit Patient is a 83-year-old male with a past medical history significant for hypertension hyperlipidemia osteoarthritis also with a history of peripheral arterial disease status post right femoral to popliteal bypass subsequently did have a right groin infection requiring debridement an removald bypass graft patient apparently has been dealing with the right big toe discoloration and gangrene, presented to the hospital with weakness and fall and there was concern for possible cellulitis to the right big toe gangrene site.Patient is status post right ptkrd-bet-tbgh amputation completed on 11/27/2023 for right big toe ischemia. On today's evaluation that is 11/29/2023 the patient denies any fever or any chills, the patient is breathing comfortably on room air, patient denies any chest pain shortness of breath or cough, the patient pain to the right AKA stump is controlled, no vomiting or diarrhea has been reported Patient did have white count of 8.24 creatinine 0.7 blood culture has been negative Objective - Vital Signs Vital signs: Vital Signs Temp 98.5 F 11/29/23 13:32 Pulse 74 11/29/23 13:32 Resp 18 11/29/23 13:32 BP 105/53 11/29/23 13:32 Pulse Ox 97 11/29/23 13:32 FiO2 Intake & Output 11/28/23 11/29/23 11/29/23 18:59 06:59 18:59 Output Total 600 800 650 Balance -600 -800 -650 Output: Urine 600 800 650 Other: Voiding Method Diaper Incontinent Incontinent External Catheter # Voids 1 # Bowel Movements 1 - Exam Elderly male lying in bed in no distress Respiratory system unlabored breathing decreased breath sound the base Heart S1-S2 regular Abdominal soft no tenderness Right AKA stump is dressed no drainage on the dressing Exam completed with the help of SPINDLE PLUMBER - Labs CBC & Chem 7: 11/30/23 03:59 11/30/23 03:59 Labs: Abnormal Lab Results - Last 24 Hours (Table) 11/29/23 11/29/23 11/29/23 Range/Units 04:08 04:08 16:28 RBC 3.56 L (4.40-5.60) X 10*6/uL Hgb 9.4 L (13.0-17.0) g/dL Hct 29.6 L (39.6-50.0) % MCH 26.4 L (27.0-32.0) pg MCHC 31.8 L (32.0-37.0) g/dL RDW 17.1 H (11.5-14.5) % Lymphocytes # 0.53 L (0.90-5.00) X 10*3/uL Potassium 3.4 L 3.2 L (3.5-5.5) mmol/L Glucose 127 H (70-110) mg/dL Calcium 8.4 L (8.7-10.3) mg/dL Alkaline Phosphatase 197 H (41-126) U/L Total Protein 5.3 L (6.2-8.2) g/dL Albumin 2.9 L (3.8-4.9) g/dL Albumin/Globulin Ratio 1.21 L (1.60-3.17) Ratio Assessment and Plan (1) Gangrene of toe of right foot Status: Acute Code(s): I96 - GANGRENE, NOT ELSEWHERE CLASSIFIED SNOMED Code(s): 14705714033487902 (2) Cellulitis of right foot Status: Acute Code(s): L03.115 - CELLULITIS OF RIGHT LOWER LIMB SNOMED Code(s): 45020232682821369 Plan: 1patient presented to hospital with weakness and did have multiple falls also noticed to be slightly confused patient is not running any fever white count is not significantly elevated but did have a left shift and the patient did have a right big toe gangrene more likely from underlying peripheral arterial disease minimal surrounding redness and a component of secondary cellulitis not entirely excluded 2-patient did have elevated inflammatory markers 3-patient is status post right ikjbo-nrq-sgjf amputation completed 11/27/2023 4-patient to continue with Zosyn while inpatient however no plan for any IV antibiotics on discharge Dictation was produced using [employer] dictation software. please excuse any grammatical, word or spelling errors. Time with Patient: Less than 30
--- NOTE | 2023-12-07 12:10 | P.PN ---
Subjective Progress Note Date: 11/30/23 Principal diagnosis: Reason for follow-up is right big toe gangrene and cellulitis Patient is a 83-year-old male with a past medical history significant for hypertension hyperlipidemia osteoarthritis also with a history of peripheral arterial disease status post right femoral to popliteal bypass subsequently did have a right groin infection requiring debridement an removald bypass graft patient apparently has been dealing with the right big toe discoloration and mitch wei, presented to the hospital with weakness and fall and there was concern for possible cellulitis to the right big toe gangrene site.Patient is status post right cltan-gqm-cexb amputation completed on 11/27/2023 for right big toe ischemia. On today's evaluation that is 11/30/2023 the patient remains to be afebrile, the patient is breathing comfortably on room air, patient denies any chest pain shortness of breath or cough, the patient denies vomiting or diarrhea has been reported, pain to the right AKA is currently controlled Patient did have white count of 6.60 creatinine 0.7 blood culture has been negative Objective - Vital Signs Vital signs: Vital Signs Temp 97.3 F L 11/30/23 13:18 Pulse 76 11/30/23 13:18 Resp 19 11/30/23 13:18 BP 153/69 11/30/23 13:18 Pulse Ox 100 11/30/23 13:18 FiO2 Intake & Output 11/29/23 11/30/23 11/30/23 18:59 06:59 18:59 Output Total 650 600 Balance -650 -600 Output: Urine 650 600 Other: Voiding Method Incontinent Incontinent Incontinent External Catheter External Catheter # Voids 1 # Bowel Movements 1 - Exam GENERAL DESCRIPTION: An elderly male lying in bed in no distress RESPIRATORY SYSTEM: Unlabored breathing , decreased breath sounds at bases HEART: S1 S2 regular rate and rhythm , ABDOMEN: Soft , no tenderness EXTREMITIES: Right AKA stump is currently dressed no drainage on the dressing - Labs CBC & Chem 7: 11/30/23 03:59 11/30/23 03:59 Labs: Abnormal Lab Results - Last 24 Hours (Table) 11/29/23 11/30/23 11/30/23 Range/Units 16:28 03:59 03:59 RBC 3.38 L (4.40-5.60) X 10*6/uL Hgb 9.2 L (13.0-17.0) g/dL Hct 28.7 L (39.6-50.0) % RDW 17.5 H (11.5-14.5) % Lymphocytes # 0.57 L (0.90-5.00) X 10*3/uL Eosinophils # 0.39 H (0.04-0.35) X 10*3/uL Potassium 3.2 L (3.5-5.1) mmol/L Calcium 8.1 L (8.7-10.3) mg/dL AST 66 H (14-35) U/L Alkaline Phosphatase 199 H (41-126) U/L Total Protein 5.1 L (6.2-8.2) g/dL Albumin 2.8 L (3.8-4.9) g/dL Albumin/Globulin Ratio 1.22 L (1.60-3.17) Ratio Assessment and Plan (1) Gangrene of toe of right foot Status: Acute Code(s): I96 - GANGRENE, NOT ELSEWHERE CLASSIFIED SNOMED Code(s): 05743371523830714 (2) Cellulitis of right foot Status: Acute Code(s): L03.115 - CELLULITIS OF RIGHT LOWER LIMB SNOMED Code(s): 90691131973209926 Plan: 1patient presented to hospital with weakness and did have multiple falls also noticed to be slightly confused patient is not running any fever white count is not significantly elevated but did have a left shift and the patient did have a right big toe gangrene more likely from underlying peripheral arterial disease minimal surrounding redness and a component of secondary cellulitis not entirely excluded 2-patient did have elevated inflammatory markers 3-patient is status post right rjsva-ibg-wvxi amputation completed 11/27/2023 4-patient has received adequate antibiotic therapy with infected port removed he will not need any antibiotic on discharge this was discussed with admitting team working on discharge Dictation was produced using [employer] dictation software. please excuse any grammatical, word or spelling errors. Time with Patient: Less than 30
== END 2023-11-30 18:07 | DRG 240 ==
LOC: EC 23:44 → 5NMEDONC 11-21 06:42 → 4SSUR 11-21 19:31
PROVIDERS: ADMIT Internal Medicine; ATTEND Internal Medicine
PROC: 0Y6C0Z3 Detachment at Right Upper Leg, Low, Open Approach (ICD-10-PCS; principal; 2023-11-27 10:00)
DX: I70.361 Atherosclerosis of unspecified type of bypass graft(s) of the extremities with gangrene, right leg (principal); L03.115 Cellulitis of right lower limb; L89.322 Pressure ulcer of left buttock, stage 2; I10 Essential (primary) hypertension; Z95.820 Peripheral vascular angioplasty status with implants and grafts; Z66 Do not resuscitate; E78.5 Hyperlipidemia, unspecified; R29.6 Repeated falls; H40.9 Unspecified glaucoma; L98.9 Disorder of the skin and subcutaneous tissue, unspecified; M19.90 Unspecified osteoarthritis, unspecified site; M54.30 Sciatica, unspecified side; M24.551 Contracture, right hip; M24.561 Contracture, right knee; G47.9 Sleep disorder, unspecified; R32 Unspecified urinary incontinence; M25.512 Pain in left shoulder; M25.551 Pain in right hip; Z87.891 Personal history of nicotine dependence; Z79.02 Long term (current) use of antithrombotics/antiplatelets; Z79.899 Other long term (current) drug therapy; Z86.14 Personal history of Methicillin resistant Staphylococcus aureus infection; Z95.5 Presence of coronary angioplasty implant and graft; W19.XXXA Unspecified fall, initial encounter; Y92.039 Unspecified place in apartment as the place of occurrence of the external cause; Z82.49 Family history of ischemic heart disease and other diseases of the circulatory system; Z88.8 Allergy status to other drugs, medicaments and biological substances
CPT/HCPCS: 36415; 70450; 71045; 72125; 72170; 80053; 81003; 82550; 83605; 84132; 85025; 85610; 85652; 85730; 86140; 86850; 86900; 86901; 86920; 87040; 93005; 96361; 96374; 96376; 99285

== ENCOUNTER 2024-02-21 11:48 | Inpatient (IN) | payer MEDICARE, OTHER ==
--- NOTE | 2024-02-21 12:54 | ED ---
General Adult HPI - General Chief complaint: Recheck/Abnormal Lab/Rx Stated complaint: Nausea Time Seen by Provider: 02/21/24 12:17 Source: patient Mode of arrival: wheelchair - History of Present Illness Initial comments: Dictation was produced using [employer] dictation software. please excuse any grammatical, word or spelling errors. Chief Complaint: 83-year-old male presents emergency for diarrhea History of Present Illness: Patient is 83-year-old male he is brought in by his legit tax accountant he has multiple comorbidities just got [facility] the [facility] ago. Patient was discharged from [facility] did not have all his medications. His tax accountant is not very familiar with how his medications should be administered. They have had home health care nurse. He had a large bout of diarrhea yesterday. Patient does not have all his medications yet. He does not have any complaints. The ROS documented in this emergency department record has been reviewed and confirmed by me. Those systems with pertinent positive or negative responses have been documented in the HPI. All other systems are other negative and/or noncontributory. - Related Data Home Medications Medication Instructions Recorded Confirmed Dorzolamide/Timolol/Pf [Cosopt Pf 1 drop BOTH EYES BID 03/18/17 11/21/23 2%/0.5% Ophth Droperette] Simvastatin [Zocor] 40 mg PO HS 12/06/20 11/21/23 hydroCHLOROthiazide [Hydrodiuril] 12.5 mg PO DAILY 12/06/20 11/21/23 HYDROcodone/APAP 10-325MG [[place] 1 tab PO BID PRN 03/14/21 11/21/23 10-325] Clopidogrel Bisulfate [Plavix] 75 mg PO DIRECTED 09/01/23 11/21/23 Ferrous Sulfate [Iron (65 MG 325 mg PO DAILY 11/03/23 11/21/23 Elemental)] Latanoprost [Latanoprost 0.005%] 1 drop BOTH EYES HS 11/03/23 11/21/23 Gabapentin 600 mg PO TID 11/21/23 11/21/23 Previous Rx's Medication Instructions Recorded methocarbamoL 750 mg PO TID PRN #12 tablet 10/28/23 Pantoprazole [Protonix] 40 mg PO AC-BRKFST tab 11/30/23 Allergies Allergy/AdvReac Type Severity Reaction Status Date / Time rivaroxaban [From Xarelto] AdvReac "internal Verified 02/21/24 12:06 bleeding" Review of Systems ROS Statement: Those systems with pertinent positive or pertinent negative responses have been documented in the HPI. ROS Other: All systems not noted in ROS Statement are negative. Past Medical History Past Medical History: Eye Disorder, Hyperlipidemia, Hypertension, Osteoarthritis (OA), Skin Disorder, Vascular Disorder Additional Past Medical History / Comment(s): Sciatica, PVD, GLAUCOMA, has had double vision a few times, no diagnosis. frequent leg pain-can't walk far, big toenail off foot currently History of Any Multi-Drug Resistant Organisms: MRSA Date of last positivie culture/infection: 08/24/23 MDRO Source:: Groin Past Surgical History: Heart Catheterization, Heart Catheterization With Stent, Orthopedic Surgery Additional Past Surgical History / Comment(s): 3 stents in left leg, angioplasty bilateral legs, aortogram, bilateral cataracts, FEMPOP BYPASS LEFT LEG -FAILED, cysts removed from back and chest. end of May 2023 had right femoral endarterectomy & femoral below knee insitu bypass, hematoma evacuation groin 2022. right leg amputation Past Anesthesia/Blood Transfusion Reactions: No Reported Reaction Date of Last Stent Placement:: 2016 Past Psychological History: No Psychological Hx Reported Smoking Status: Former smoker Past Alcohol Use History: None Reported Past Drug Use History: None Reported - Past Family History Mother Family Medical History: Diabetes Mellitus Father Family Medical History: Coronary Artery Disease (CAD), Rheumatoid Arthritis (RA) Additional Family Medical History / Comment(s): ARTERIAL SCLEROSIS General Exam - General Exam Comments Initial Comments: General: Well-appearing, nontoxic, no acute distress. Head: Normocephalic, atraumatic Eyes: PERRLA, EOMI ENT: Airway patent Chest: Nonlabored breathing Skin: No visual rash, normal skin tone Neuro: Alert and oriented 3 Musculoskeletal: No gross abnormalities Course Vital Signs 02/21/24 11:58 Temperature 97.4 F L Pulse Rate 75 Respiratory 18 Rate Blood Pressure 164/76 O2 Sat by Pulse 99 Oximetry EKG Findings - EKG Comments: EKG Findings:: My EKG interpretation: Ventricular rate 76, sinus rhythm,. 199, cures 84, QTc 434. No LA prolongation, no QTC prolongation, no ST or T-wave changes noted. Overall, this EKG is unremarkable Medical Decision Making - Medical Decision Making Was pt. sent in by a medical professional or institution (DYLAN Langston, SALES PROMOTION REPRESENTATIVE, urgent care, hospital, or fdc...) When possible be specific @ -No Did you speak to anyone other than the patient for history (EMS, parent, family, police, friend...)? What history was obtained from this source @ -No Did you review nursing and triage notes (agree or disagree)? Why? @ -I reviewed and agree with nursing and triage notes Were old charts reviewed (outside hosp., previous admission, EMS record, old EKG, old radiological studies, urgent care reports/EKG's, [facility]dc records)? Report findings @ -No old charts were reviewed Differential Diagnosis (chest pain, altered mental status, abdominal pain women, abdominal pain men, vaginal bleeding, musculoskeletal, weakness, fever, dyspnea, syncope, headache, dizziness, GI bleed, back pain, seizure, CVA, palpatations, mental health)? @ -Not applicable EKG interpreted by me (3pts min.). @ -None done X-rays interpreted by me (1pt min.). @ -None done CT interpreted by me (1pt min.). @ -None done U/S interpreted by me (1pt. min.). @ -None done What testing was considered but not performed or refused? (CT, X-rays, U/S, labs)? Why? @ -None What meds were considered but not given or refused? Why? @ -None Did you discuss the management of the patient with other professionals (professionals i.e. DYLAN Langston, SALES PROMOTION REPRESENTATIVE, lab, RT, psych nurse, social sciences lecturer, boats renter, teacher, quality officer, employment case manager)? Give summary @ -No Was smoking cessation discussed for >3mins.? @ -No Was critical care preformed (if so, how long)? @ -No Were there social determinants of health that impacted care today? How? (Homelessness, low income, unemployed, alcoholism, drug addiction, transpor tation, low edu. Level, literacy, decrease access to med. care, shelter, rehab)? @ -No Was there de-escalation of care discussed even if they declined (Discuss DNR or withdrawal of care, Hospice)? DNR status @ -No What co-morbidities impacted this encounter? (DM, HTN, Smoking, COPD, CAD, Cancer, CVA, ARF, Chemo, Hep., AIDS, mental health diagnosis, sleep apnea, morbid obesity)? @ -None Was patient admitted / discharged? Hospital course, mention meds given and route, prescriptions, significant lab abnormalities, going to OR and other pertinent info. @ -83-year-old male will be admitted observation. He had a bout of diarrhea. Patient does not have all his home meds. Seems that his social situation has not been prepared adequately prior to his discharge from the [facility]. Patient will be observed. Social social work will be consulted to ensure patient is stable for discharge. Dr. Barber is agreeable with observation admission. Undiagnosed new problem with uncertain prognosis? @ -No Drug Therapy requiring intensive monitoring for toxicity (Heparin, Nitro, Insulin, Cardizem)? @ -No Were any procedures done? @ -No Diagnosis/symptom? Acute, or Chronic, or Acute on Chronic? Uncomplicated (without systemic symptoms) or Complicated (systemic symptoms)? @ -Diarrhea Side effects of treatment? @ -No Exacerbation, Progression, or Severe Exacerbation? @ -No Poses a threat to life or bodily function? How? (Chest pain, [place], [place], pneumonia, PE, COPD, DKA, ARF, appy, cholecystitis, CVA, Diverticulitis, Homicidal, Suicidal, threat to staff... and all critical care pts) @ -yes - Lab Data Result diagrams: 02/21/24 13:02 02/21/24 13:02 Lab Results 02/21/24 02/21/24 Range/Units 13:02 13:02 WBC 9.7 (3.8-10.6) k/uL RBC 3.88 L (4.30-5.90) m/uL Hgb 11.8 L (13.0-17.5) gm/dL Hct 37.2 L (39.0-53.0) % MCV 95.8 D (80.0-100.0) fL MCH 30.5 (25.0-35.0) pg MCHC 31.9 (31.0-37.0) g/dL RDW 16.5 H (11.5-15.5) % Plt Count 395 (150-450) k/uL MPV 7.8 Neutrophils % 88 % Lymphocytes % 6 % Monocytes % 4 % Eosinophils % 0 % Basophils % 1 % Neutrophils # 8.6 H (1.3-7.7) k/uL Lymphocytes # 0.6 L (1.0-4.8) k/uL Monocytes # 0.4 (0-1.0) k/uL Eosinophils # 0.0 (0-0.7) k/uL Basophils # 0.1 (0-0.2) k/uL Anisocytosis Slight Sodium 141 (137-145) mmol/L Potassium 5.2 H (3.5-5.1) mmol/L Chloride 107 (98-107) mmol/L Carbon Dioxide 31 H (22-30) mmol/L Anion Gap 3 mmol/L BUN 22 H (9-20) mg/dL Creatinine 0.76 (0.66-1.25) mg/dL Est GFR (CKD-EPI)AfAm >90 (>60 ml/min/1.73 sqM) Est GFR (CKD-EPI)NonAf 84 (>60 ml/min/1.73 sqM) Glucose 132 H (74-99) mg/dL Calcium 10.1 (8.4-10.2) mg/dL Magnesium 2.3 (1.6-2.3) mg/dL Disposition Clinical Impression: Diarrhea Disposition: ADMITTED IP TO THIS HOSP Condition: Fair Referrals: Blake Barber MD [Primary Care Provider] - 1-2 days Decision Time: 14:56
[2024-02-21 13:30] LABS: African American GFR (CKD) >90 (>60 ml/min/1.73 sqM); Anion Gap 3 mmol/L; Blood Urea Nitrogen 22 mg/dL (9-20); Calcium 10.1 mg/dL (8.4-10.2); Carbon Dioxide 31 mmol/L (22-30); Chloride 107 mmol/L (98-107); Glucose 132 mg/dL (74-99); Magnesium 2.3 mg/dL (1.6-2.3); Non-African American GFR(CKD) 84 (>60 ml/min/1.73 sqM); Potassium 5.2 mmol/L (3.5-5.1); Sodium 141 mmol/L (137-145)
[2024-02-21 13:59] LABS: Anisocytosis Slight; Basophils # (A) 0.1 k/uL (0-0.2); Basophils % (A) 1 %; Eosinophils % (A) 0 %; HCT 37.2 % (39.0-53.0); HGB 11.8 gm/dL (13.0-17.5); Lymphocytes # (A) 0.6 k/uL (1.0-4.8); Lymphocytes % (A) 6 %; MCH 30.5 pg (25.0-35.0); MCHC 31.9 g/dL (31.0-37.0); Mean Platelet Volume 7.8; Monocytes # (A) 0.4 k/uL (0-1.0); Monocytes % (A) 4 %; Neutrophils # (A) 8.6 k/uL (1.3-7.7); Neutrophils % (A) 88 %; Platelet Count 395 k/uL (150-450); RBC 3.88 m/uL (4.30-5.90); RDW 16.5 % (11.5-15.5); WBC 9.7 k/uL (3.8-10.6)
[2024-02-21 14:02] LABS: MCV 95.8 fL (80.0-100.0)
[2024-02-21] MEDS ORDERED: NALOXONE 0.4 MG/ML 1 ML VIAL IV PRN (17:08)
[2024-02-21] MEDS ORDERED: ONDANSETRON 4 MG/2 ML VIAL IVP PRN (17:08)
[2024-02-21 21:20] LABS: Glucose,Whole Blood 132 mg/dL (70-110)
[2024-02-22] MEDS ORDERED: HYDROcodone/APAP 10-325MG 1 EACH TAB PO PRN (13:40)
[2024-02-22] MEDS ORDERED: ONDANSETRON 4 MG TAB PO PRN (13:40)
[2024-02-22] MEDS ORDERED: ACETAMINOPHEN TAB 325 MG TAB PO PRN (13:40)
[2024-02-22] MEDS ORDERED: methocarbamoL 750 MG TAB PO PRN (13:40)
[2024-02-22] MEDS: COLLAGENASE 250 UNIT/GM OINTMENT 30 GM TUBE TOPICAL SCH (14:12)
[2024-02-22] MEDS: CLOPIDOGREL 75 MG TAB PO SCH (16:00)
[2024-02-22] MEDS: GABAPENTIN 300 MG CAP PO SCH (16:00)
--- NOTE | 2024-02-22 17:47 | P.HPIM ---
History of Present Illness H&P Date: 02/22/24 Saravanan Sharma, is an 83-year-old male who presented to [facility] emergency room with a chief complaint of nausea vomiting and diarrhea. He was evaluated in the emergency room vital examination on presentation revealed a temperature of 97.4 pulse 75 respiration 18 blood pressure 164/76 pulse ox 99% on room air Laboratory data revealed a white blood count of 9.7 hemoglobin 11.8 platelet count 395 BUN 22 creatinine 0.76 potassium level V.2 Testing in the emergency room revealed EKG revealed sinus rhythm with right ventricular hypertrophy Patient was admitted to medical floor for further evaluation and treatment Past Medical History Past Medical History: Eye Disorder, Hyperlipidemia, Hypertension, Osteoarthritis (OA), Skin Disorder, Vascular Disorder Additional Past Medical History / Comment(s): Sciatica, PVD, GLAUCOMA, has had double vision a few times, no diagnosis. frequent leg pain-can't walk far, big toenail off foot currently History of Any Multi-Drug Resistant Organisms: MRSA Date of last positivie culture/infection: 08/24/23 MDRO Source:: Groin Past Surgical History: Heart Catheterization, Heart Catheterization With Stent, Orthopedic Surgery Additional Past Surgical History / Comment(s): 3 stents in left leg, angioplasty bilateral legs, aortogram, bilateral cataracts, FEMPOP BYPASS LEFT LEG -FAILED, cysts removed from back and chest. end of May 2023 had right femoral endarterectomy & femoral below knee insitu bypass, hematoma evacuation groin 2022. right leg amputation Past Anesthesia/Blood Transfusion Reactions: No Reported Reaction Date of Last Stent Placement:: 2016 Past Psychological History: No Psychological Hx Reported Additional Psychological History / Comment(s): PT HAS WALKER, wheelchair Smoking Status: Former smoker Past Alcohol Use History: None Reported Additional Past Alcohol Use History / Comment(s): SMOKED FROM 1955 TO 1988, 1-2 PPD. Past Drug Use History: None Reported - Past Family History Mother Family Medical History: Diabetes Mellitus Father Family Medical History: Coronary Artery Disease (CAD), Rheumatoid Arthritis (RA) Additional Family Medical History / Comment(s): ARTERIAL SCLEROSIS Medications and Allergies Home Medications Medication Instructions Recorded Confirmed Type Dorzolamide/Timolol/Pf [Cosopt Pf 1 drop BOTH EYES BID 03/18/17 02/21/24 History 2%/0.5% Ophth Droperette] Simvastatin [Zocor] 40 mg PO HS 12/06/20 02/21/24 History hydroCHLOROthiazide [Hydrodiuril] 12.5 mg PO DAILY 12/06/20 02/21/24 History HYDROcodone/APAP 10-325MG [[place] 1 tab PO BID PRN 03/14/21 02/21/24 History 10-325] Clopidogrel Bisulfate [Plavix] 75 mg PO DAILY 09/01/23 02/21/24 History methocarbamoL 750 mg PO TID PRN #12 tablet 10/28/23 02/21/24 Rx Ferrous Sulfate [Iron (65 MG 325 mg PO DAILY 11/03/23 02/21/24 History Elemental)] Latanoprost [Latanoprost 0.005%] 1 drop BOTH EYES HS 11/03/23 02/21/24 History Pantoprazole [Protonix] 40 mg PO AC-BRKFST tab 11/30/23 02/21/24 Rx Acetaminophen Tab [Tylenol] 650 mg PO Q4H PRN 02/21/24 02/21/24 History Collagenase [Santyl Ointment] 1 applic TOPICAL DAILY 02/21/24 02/21/24 History Ergocalciferol [Vitamin D2 (1250 1,250 mcg PO Q7D 02/21/24 02/21/24 History Mcg = 72011 Iu)] Gabapentin 600 mg PO TID 02/21/24 02/21/24 History Mupirocin 2% Oint [Bactroban 2% 1 applic TOPICAL DAILY 02/21/24 02/21/24 History Oint] Mupirocin 2% Oint [Bactroban 2% 1 applic TOPICAL TID 02/21/24 02/21/24 History Oint] Ondansetron [Zofran] 4 mg PO Q8HR PRN 02/21/24 02/21/24 History Allergies Allergy/AdvReac Type Severity Reaction Status Date / Time rivaroxaban [From Xarelto] AdvReac "internal Verified 02/21/24 15:45 bleeding" Physical Exam Vitals: Vital Signs Temp Pulse Pulse Resp BP BP BP 02/22/24 07:40 97.5 F L 76 15 149/62 02/22/24 00:26 97.6 F 67 15 163/69 02/21/24 21:25 98.0 F 71 15 152/71 02/21/24 20:00 71 15 02/21/24 18:35 82 18 141/70 02/21/24 17:37 88 18 150/74 02/21/24 15:44 67 18 148/57 02/21/24 11:58 97.4 F L 75 18 164/76 Pulse Ox 02/22/24 07:40 98 02/22/24 00:26 98 02/21/24 21:25 98 02/21/24 20:00 02/21/24 18:35 96 02/21/24 17:37 98 02/21/24 15:44 94 L 02/21/24 11:58 99 Intake and Output 02/21/24 02/22/24 02/22/24 22:59 06:59 14:59 Output Total 0 Balance 0 Output: Urine 0 Other: Voiding Method Diaper Incontinent # Voids 1 # Bowel Movements 2 Weight 53.524 kg In general patient is alert and oriented x 3 in no distress HEENT head normocephalic and atraumatic Neck is supple no JVD no goiter no lymphadenopathy no carotid bruit Chest examination is clear to auscultation no crackles no wheezing Cardiac exam reveals regular heart sounds S1 and S2 no gallops no murmurs Abdomen is soft nontender no organomegaly with normal bowel sounds Extremity exam reveals no edema no cyanosis or clubbing Neurological examination reveals no gross focal deficits Results CBC & Chem 7: 02/21/24 13:02 02/21/24 13:02 Labs: Abnormal Lab Results - Last 24 Hours (Table) 02/21/24 02/21/24 02/21/24 Range/Units 13:02 13:02 21:19 RBC 3.88 L (4.30-5.90) m/uL Hgb 11.8 L (13.0-17.5) gm/dL Hct 37.2 L (39.0-53.0) % RDW 16.5 H (11.5-15.5) % Neutrophils # 8.6 H (1.3-7.7) k/uL Lymphocytes # 0.6 L (1.0-4.8) k/uL Potassium 5.2 H (3.5-5.1) mmol/L Carbon Dioxide 31 H (22-30) mmol/L BUN 22 H (9-20) mg/dL Glucose 132 H (74-99) mg/dL POC Glucose (mg/dL) 132 H (70-110) mg/dL Thrombosis Risk Factor Assmnt - Choose All That Apply Any of the Below Risk Factors Present?: No Other Risk Factors: Yes Each Risk Factor Represents 3 Points: Age 75 years or older Other congenital or acquired thrombophilia - If yes, enter type in comment: No Thrombosis Risk Factor Assessment Total Risk Factor Score: 3 Thrombosis Risk Factor Assessment Level: Moderate Risk Assessment and Plan Plan: gastroenteritis with nausea vomiting and diarrhea Dehydration with mild acute kidney injury Underlying history of hypertension Underlying history of hyperlipidemia Underlying history of peripheral vascular disease Underlying history of osteoarthritis Recent history of right [id number] amputation At this time patient is admitted to medical floor He was started on IV normal saline at 75 mL/h Home medications reviewed and reordered Stool study ordered Will follow closely
[2024-02-22] MEDS: ATORVASTATIN 20 MG TAB PO SCH (21:01)
[2024-02-22] MEDS: DORZOLAMIDE-TIMOLOL 2.23%/0.68 10ML BTL BOTH EYES SCH (21:01)
[2024-02-22] MEDS: LATANOPROST 0.005% OPHTH DROPS 2.5 ML BTL BOTH EYES SCH (23:34)
--- NOTE | 2024-02-22 23:42 | P.CONS ---
History of Present Illness - Reason for Consult Consult date: 02/22/24 - History of Present Illness Patient is a 83-year-old male with a past medical history pertinent for hypertension hyperlipidemia osteomyelitis patient has been brought in to [facility] ER for evaluation of bout of diarrhea the day before presentation to the hospital and this patient apparently was recently discharged from the local [facility] on arrival to the ER patient was afebrile and no fever have recorded subsequently patient was not tachycardic hypotensive or hypoxic patient did have white count 9.7 creatinine 0.76 stool for C. difficile requested but not collected yet patient has been admitted to the hospital infectious he was consulted today regarding his diarrhea patient himself evalurubi barragan historian however nonspecifically she denies having any headache no chest pain shortness of breath or cough no vomiting abdominal pain and no further diarrhea has been reported Past Medical History Past Medical History: Eye Disorder, Hyperlipidemia, Hypertension, Osteoarthritis (OA), Skin Disorder, Vascular Disorder Additional Past Medical History / Comment(s): Sciatica, PVD, GLAUCOMA, has had double vision a few times, no diagnosis. frequent leg pain-can't walk far, big toenail off foot currently History of Any Multi-Drug Resistant Organisms: MRSA Year Discovered:: 08/24/23 MDRO Source:: Groin Past Surgical History: Heart Catheterization, Heart Catheterization With Stent, Orthopedic Surgery Additional Past Surgical History / Comment(s): 3 stents in left leg, angioplasty bilateral legs, aortogram, bilateral cataracts, FEMPOP BYPASS LEFT LEG -FAILED, cysts removed from back and chest. end of May 2023 had right femoral endarterectomy & femoral below knee insitu bypass, hematoma evacuation groin 2022. right leg amputation Past Anesthesia/Blood Transfusion Reactions: No Reported Reaction Date of Last Stent Placement:: 2016 Past Psychological History: No Psychological Hx Reported Additional Psychological History / Comment(s): PT HAS WALKER, wheelchair Smoking Status: Former smoker Past Alcohol Use History: None Reported Additional Past Alcohol Use History / Comment(s): SMOKED FROM 1955 TO 1988, 1-2 PPD. Past Drug Use History: None Reported - Past Family History Mother Family Medical History: Diabetes Mellitus Father Family Medical History: Coronary Artery Disease (CAD), Rheumatoid Arthritis (RA) Additional Family Medical History / Comment(s): ARTERIAL SCLEROSIS Medications and Allergies Home Medications Medication Instructions Recorded Confirmed Type Dorzolamide/Timolol/Pf [Cosopt Pf 1 drop BOTH EYES BID 03/18/17 02/21/24 History 2%/0.5% Ophth Droperette] Simvastatin [Zocor] 40 mg PO HS 12/06/20 02/21/24 History hydroCHLOROthiazide [Hydrodiuril] 12.5 mg PO DAILY 12/06/20 02/21/24 History HYDROcodone/APAP 10-325MG [[place] 1 tab PO BID PRN 03/14/21 02/21/24 History 10-325] Clopidogrel Bisulfate [Plavix] 75 mg PO DAILY 09/01/23 02/21/24 History methocarbamoL 750 mg PO TID PRN #12 tablet 10/28/23 02/21/24 Rx Ferrous Sulfate [Iron (65 MG 325 mg PO DAILY 11/03/23 02/21/24 History Elemental)] Latanoprost [Latanoprost 0.005%] 1 drop BOTH EYES HS 11/03/23 02/21/24 History Pantoprazole [Protonix] 40 mg PO AC-BRKFST tab 11/30/23 02/21/24 Rx Acetaminophen Tab [Tylenol] 650 mg PO Q4H PRN 02/21/24 02/21/24 History Collagenase [Santyl Ointment] 1 applic TOPICAL DAILY 02/21/24 02/21/24 History Ergocalciferol [Vitamin D2 (1250 1,250 mcg PO Q7D 02/21/24 02/21/24 History Mcg = 44349 Iu)] Gabapentin 600 mg PO TID 02/21/24 02/21/24 History Mupirocin 2% Oint [Bactroban 2% 1 applic TOPICAL DAILY 02/21/24 02/21/24 History Oint] Mupirocin 2% Oint [Bactroban 2% 1 applic TOPICAL TID 02/21/24 02/21/24 History Oint] Ondansetron [Zofran] 4 mg PO Q8HR PRN 02/21/24 02/21/24 History Allergies Allergy/AdvReac Type Severity Reaction Status Date / Time rivaroxaban [From Xarelto] AdvReac "internal Verified 02/21/24 15:45 bleeding" Physical Exam Vitals: Vital Signs Temp Pulse Pulse Resp BP BP BP 02/22/24 14:01 97.4 F L 75 16 149/69 02/22/24 07:40 97.5 F L 76 15 149/62 02/22/24 00:26 97.6 F 67 15 163/69 02/21/24 21:25 98.0 F 71 15 152/71 02/21/24 20:00 71 15 02/21/24 18:35 82 18 141/70 02/21/24 17:37 88 18 150/74 Pulse Ox 02/22/24 14:01 100 02/22/24 07:40 98 02/22/24 00:26 98 02/21/24 21:25 98 02/21/24 20:00 02/21/24 18:35 96 02/21/24 17:37 98 Intake and Output 02/22/24 02/22/24 02/22/24 06:59 14:59 22:59 Other: # Voids 1 1 1 # Bowel Movements 2 1 Results CBC & Chem 7: 02/21/24 13:02 02/21/24 13:02 Labs: Abnormal Lab Results - Last 24 Hours (Table) 02/21/24 Range/Units 21:19 POC Glucose (mg/dL) 132 H (70-110) mg/dL Assessment and Plan Plan: 1patient presented hospital with weakness and did have an episode of diarrhea not very clear if he has been exposed to antibiotic recently abdominal ultrasound slightly tense however no fever or elevated white count 2-we will wait for the stool for C. difficile and check a stool culture 3-check inflammatory markers 4-symptomatic treatment for now however will avoid antimotility agent to the stool for C. difficile finalize We will follow on clinical condition and cultures to further adjust medication if needed Thank you for this consultation we will follow the patient along with you Dictation was produced using [employer], dictation software. please excuse any grammatical, word or spelling errors. Time with Patient: Greater than 30
[2024-02-23] MEDS: PANTOPRAZOLE 40 MG TABLET PO SCH (06:24)
[2024-02-23] MEDS: hydroCHLOROthiazide 12.5 MG CAP PO SCH (09:00)
[2024-02-23] MEDS: FERROUS SULFATE 325 MG TAB PO SCH (09:00)
--- NOTE | 2024-02-23 09:24 | P.PN ---
Subjective Progress Note Date: 02/23/24 Saravanan Sharma, is an 83-year-old male who presented to [facility] emergency room with a chief complaint of nausea vomiting and diarrhea. He was evaluated in the emergency room vital examination on presentation revealed a temperature of 97.4 pulse 75 respiration 18 blood pressure 164/76 pulse ox 99% on room air Laboratory data revealed a white blood count of 9.7 hemoglobin 11.8 platelet count 395 BUN 22 creatinine 0.76 potassium level V.2 Testing in the emergency room revealed EKG revealed sinus rhythm with right ventricular hypertrophy Patient was admitted to medical floor for further evaluation and treatment On 02/23/2024 patient is alert and oriented 3.stool for C. diff negative stool cultures ordered. Infectious disease service is following. Social work services consulted for discharge planning current vital signs. Current vital signs temp 97.9, heart rate 63, respiratory rate 16, blood pressure 145/57 with pulse ox 100% on room air Objective - Vital Signs Vital signs: Vital Signs Temp 97.9 F 02/23/24 07:00 Pulse 63 02/23/24 07:00 Resp 16 02/23/24 07:00 BP 145/57 02/23/24 07:00 Pulse Ox 100 02/23/24 07:00 FiO2 Intake & Output 02/22/24 02/23/24 02/23/24 18:59 06:59 18:59 Other: Voiding Method Diaper Incontinent # Voids 1 2 # Bowel Movements 1 2 - Exam In general patient is alert and oriented x 3 in no distress HEENT head normocephalic and atraumatic Neck is supple no JVD no goiter no lymphadenopathy no carotid bruit Chest examination is clear to auscultation no crackles no wheezing Cardiac exam reveals regular heart sounds S1 and S2 no gallops no murmurs Abdomen is soft nontender no organomegaly with normal bowel sounds Extremity exam reveals no edema no cyanosis or clubbing Neurological examination reveals no gross focal deficits - Labs CBC & Chem 7: 02/21/24 13:02 02/21/24 13:02 Assessment and Plan Assessment: gastroenteritis with nausea vomiting and diarrhea Dehydration with mild acute kidney injury Underlying history of hypertension Underlying history of hyperlipidemia Underlying history of peripheral vascular disease Underlying history of osteoarthritis Recent history of right [id number] amputation At this time patient is admitted to medical floor He was started on IV normal saline at 75 mL/h Home medications reviewed and reordered Stool study ordered Will follow closely
[2024-02-23 11:49] LABS: Basophils # (A) 0.06 X 10*3/uL (0.00-0.10); Basophils % (A) 0.8 %; Eosinophils # (A) 0.53 X 10*3/uL (0.04-0.35); Eosinophils % (A) 6.7 %; HCT 35.1 % (39.6-50.0); HGB 11.2 g/dL (13.0-17.0); Lymphocytes # (A) 0.82 X 10*3/uL (0.90-5.00); Lymphocytes % (A) 10.3 %; MCH 30.6 pg (27.0-32.0); MCHC 31.9 g/dL (32.0-37.0); MCV 95.9 FL (80.0-97.0); Mean Platelet Volume 9.8 FL (9.5-12.2); Monocytes % (A) 8.8 %; NRBC Per 100 WBC 0 X 10*3/uL (0.00-0.01); Neutrophils % (A) 73.1 %; Platelet Count 346 X 10*3/uL (140-440); RBC 3.66 X 10*6/uL (4.40-5.60); RDW 16.3 % (11.5-14.5); WBC 7.93 X 10*3/uL (4.50-10.00)
[2024-02-23 12:01] LABS: ALT 22 U/L (10-49); AST 31 U/L (14-35); Albumin 3.9 g/dL (3.8-4.9); Albumin/Globulin Ratio 1.56 Ratio (1.60-3.17); Alkaline Phosphatase 101 U/L (41-126); BUN/Creat Ratio 24.12 Ratio (12.00-20.00); Blood Urea Nitrogen 19.3 mg/dL (9.0-27.0); Calcium 9.6 mg/dL (8.7-10.3); Carbon Dioxide 23.5 mmol/L (21.6-31.8); Chloride 106 mmol/L (96-109); Globulin 2.5 g/dL (1.6-3.3); Glucose 100 mg/dL (70-110); Potassium 3.8 mmol/L (3.5-5.5); Sodium 143 mmol/L (135-145); Total Bilirubin 0.5 mg/dL (0.3-1.2); Total Protein 6.4 g/dL (6.2-8.2)
[2024-02-23] MEDS: CHOLESTYRAMINE (WITH SUGAR) 4 GM PACKET PO SCH (13:11)
[2024-02-24 04:02] VITALS: RESP 17
[2024-02-24 08:10] VITALS: BP 115/54; PULSE 107; TEMP 97.5
[2024-02-24 10:42] LABS: Basophils # (A) 0.06 X 10*3/uL (0.00-0.10); Eosinophils # (A) 0.51 X 10*3/uL (0.04-0.35); Eosinophils % (A) 8.3 %; HGB 10.9 g/dL (13.0-17.0); Lymphocytes # (A) 0.82 X 10*3/uL (0.90-5.00); Lymphocytes % (A) 13.3 %; MCH 30.6 pg (27.0-32.0); MCHC 32.1 g/dL (32.0-37.0); MCV 95.5 FL (80.0-97.0); Monocytes % (A) 9.7 %; NRBC Per 100 WBC 0 X 10*3/uL (0.00-0.01); Neutrophils # (A) 4.16 X 10*3/uL (1.80-7.70); Neutrophils % (A) 67.2 %; Platelet Count 307 X 10*3/uL (140-440); RBC 3.56 X 10*6/uL (4.40-5.60); RDW 15.5 % (11.5-14.5); WBC 6.18 X 10*3/uL (4.50-10.00)
[2024-02-24 11:06] LABS: ALT 33 U/L (10-49); AST 27 U/L (14-35); Albumin 3.7 g/dL (3.8-4.9); Albumin/Globulin Ratio 1.37 Ratio (1.60-3.17); Alkaline Phosphatase 107 U/L (41-126); BUN/Creat Ratio 17.67 Ratio (12.00-20.00); Blood Urea Nitrogen 15.9 mg/dL (9.0-27.0); Calcium 9.1 mg/dL (8.7-10.3); Carbon Dioxide 24.9 mmol/L (21.6-31.8); Chloride 101 mmol/L (96-109); Globulin 2.7 g/dL (1.6-3.3); Glucose 92 mg/dL (70-110); Potassium 3.7 mmol/L (3.5-5.5); Sodium 137 mmol/L (135-145); Total Bilirubin 0.3 mg/dL (0.3-1.2); Total Protein 6.4 g/dL (6.2-8.2)
--- NOTE | 2024-02-24 11:47 | P.DS ---
Providers Date of admission: 02/23/24 10:45 Expected date of discharge: 02/24/24 Attending physician: Blake Barber Consults: 02/22/24 13:54 Consult Physician Routine Consulting Provider: Tyree Lux Consult Reason/Comments: gastroenteritis, diarrhea Do you want consulting provider notified?: Yes Primary care physician: Blake Barber [place] [facility] Course: Discharge diagnosis gastroenteritis with nausea vomiting and diarrhea Dehydration with mild acute kidney injury Underlying history of hypertension Underlying history of hyperlipidemia Underlying history of peripheral vascular disease Underlying history of osteoarthritis Recent history of right [id number] amputation Hospital course Saravanan Sharma, is an 83-year-old male who presented to [facility] emergency room with a chief complaint of nausea vomiting and diarrhea. He was evaluated in the emergency room vital examination on presentation re vealed a temperature of 97.4 pulse 75 respiration 18 blood pressure 164/76 pulse ox 99% on room air Laboratory data revealed a white blood count of 9.7 hemoglobin 11.8 platelet count 395 BUN 22 creatinine 0.76 potassium level V.2 Testing in the emergency room revealed EKG revealed sinus rhythm with right ventricular hypertrophy Patient was admitted to medical floor for further evaluation and treatment On 02/23/2024 patient is alert and oriented 3.stool for C. diff negative stool cultures ordered. Infectious disease service is following. Social work services consulted for discharge planning current vital signs. Current vital signs temp 97.9, heart rate 63, respiratory rate 16, blood pressure 145/57 with pulse ox 100% on room air on 02/24/2024 patient's alert and oriented 3. Patient will be DC'd home. Patient DC'd on Questran and Lomotil. At this time patient denies chest pain or shortness breath. Patient denies nausea vomiting . Patient still having some diarrhea.patient requesting all medications be sent. Patient Condition at Discharge: Stable Plan - Discharge Summary New Discharge Prescriptions: New Atorvastatin [Lipitor] 20 mg PO HS 30 Days #30 tab Clopidogrel [Plavix] 75 mg PO DAILY 30 Days #30 tab Cholestyramine (with Sugar) [Questran Packet] 4 gm PO ACHS 14 Days #56 packet Diphenoxylate HCl/Atropine [Lomotil 2.5-0.025 mg Tablet] 1 each PO BID PRN 7 Days #14 tab PRN Reason: Diarrhea Continue Dorzolamide/Timolol/Pf [Cosopt Pf 2%/0.5% Ophth Droperette] 1 drop BOTH EYES BID Acetaminophen Tab [Tylenol] 650 mg PO Q4H PRN PRN Reason: Fever And/ Or Pain Ergocalciferol [Vitamin D2 (1250 Mcg = 04940 Iu)] 1,250 mcg PO Q7D Collagenase [Santyl Ointment] 1 applic TOPICAL DAILY Gabapentin 600 mg PO TID 3 Days #9 tab Ferrous Sulfate [Iron (65 MG Elemental)] 325 mg PO DAILY 30 Days #30 tab Ondansetron [Zofran] 4 mg PO Q8HR PRN 7 Days #21 tab PRN Reason: Nausea Latanoprost [Latanoprost 0.005%] 1 drop BOTH EYES HS Mupirocin 2% Oint [Bactroban 2% Oint] 1 applic TOPICAL DAILY #1 tub hydroCHLOROthiazide [Hydrodiuril] 12.5 mg PO DAILY 30 Days #30 cap methocarbamoL 750 mg PO TID PRN #12 tablet PRN Reason: Pain HYDROcodone/APAP 10-325MG [[place] 10-325] 1 tab PO BID PRN 3 Days #6 tab PRN Reason: Pain Pantoprazole [Protonix] 40 mg PO AC-BRKFST 30 Days #30 tab Discontinued Simvastatin [Zocor] 40 mg PO HS Clopidogrel Bisulfate [Plavix] 75 mg PO DAILY No Action Mupirocin 2% Oint [Bactroban 2% Oint] 1 applic TOPICAL TID Discharge Medication List Dorzolamide/Timolol/Pf [Cosopt Pf 2%/0.5% Ophth Droperette] 1 drop BOTH EYES BID 03/18/17 [History] Latanoprost [Latanoprost 0.005%] 1 drop BOTH EYES HS 11/03/23 [History] Acetaminophen Tab [Tylenol] 650 mg PO Q4H PRN 02/21/24 [History] Collagenase [Santyl Ointment] 1 applic TOPICAL DAILY 02/21/24 [History] Ergocalciferol [Vitamin D2 (1250 Mcg = 30796 Iu)] 1,250 mcg PO Q7D 02/21/24 [History] Mupirocin 2% Oint [Bactroban 2% Oint] 1 applic TOPICAL TID 02/21/24 [History] Atorvastatin [Lipitor] 20 mg PO HS 30 Days #30 tab 02/24/24 [Rx] Cholestyramine (with Sugar) [Questran Packet] 4 gm PO ACHS 14 Days #56 packet 02/24/24 [Rx] Clopidogrel [Plavix] 75 mg PO DAILY 30 Days #30 tab 02/24/24 [Rx] Diphenoxylate HCl/Atropine [Lomotil 2.5-0.025 mg Tablet] 1 each PO BID PRN 7 Days #14 tab 02/24/24 [Rx] Ferrous Sulfate [Iron (65 MG Elemental)] 325 mg PO DAILY 30 Days #30 tab 02/24/24 [Rx] Gabapentin 600 mg PO TID 3 Days #9 tab 02/24/24 [Rx] HYDROcodone/APAP 10-325MG [[place] 10-325] 1 tab PO BID PRN 3 Days #6 tab 02/24/24 [Rx] Mupirocin 2% Oint [Bactroban 2% Oint] 1 applic TOPICAL DAILY #1 tub 02/24/24 [Rx] Ondansetron [Zofran] 4 mg PO Q8HR PRN 7 Days #21 tab 02/24/24 [Rx] Pantoprazole [Protonix] 40 mg PO AC-BRKFST 30 Days #30 tab 02/24/24 [Rx] hydroCHLOROthiazide [Hydrodiuril] 12.5 mg PO DAILY 30 Days #30 cap 02/24/24 [Rx] methocarbamoL 750 mg PO TID PRN #12 tablet 02/24/24 [Rx] Follow up Appointment(s)/Referral(s): Blake Barber MD [Primary Care Provider] - 1-2 days Activity/Diet/Wound Care/Special Instructions: activity as tolerated Diet heart healthy Discharge Disposition: HOME WITH HOME HEALTH SERVICES
[2024-02-29] MEDS ORDERED: ERGOCALCIFEROL 1,250 MCG (50,000 IU) CAPSULE PO SCH (09:00)
== END 2024-02-24 14:17 | disposition home health service (06) | DRG 392 ==
LOC: EC 11:48 → 6NMEDSUR 17:08 → OBSVTOIN 02-23 10:45
PROVIDERS: ADMIT Internal Medicine; ATTEND Internal Medicine
DX: K52.9 Noninfective gastroenteritis and colitis, unspecified (principal); N17.9 Acute kidney failure, unspecified; E11.51 Type 2 diabetes mellitus with diabetic peripheral angiopathy without gangrene; Z89.611 Acquired absence of right leg above knee; I11.9 Hypertensive heart disease without heart failure; E86.0 Dehydration; E78.5 Hyperlipidemia, unspecified; M19.90 Unspecified osteoarthritis, unspecified site; Z86.14 Personal history of Methicillin resistant Staphylococcus aureus infection; Z87.891 Personal history of nicotine dependence; Z79.899 Other long term (current) drug therapy; Z79.02 Long term (current) use of antithrombotics/antiplatelets; Z88.8 Allergy status to other drugs, medicaments and biological substances; Z87.39 Personal history of other diseases of the musculoskeletal system and connective tissue
CPT/HCPCS: 36415; 80048; 80053; 83735; 85025; 87324; 93005; 99285

== ENCOUNTER → 2024-10-20 | Outpatient (CLI) | payer MEDICARE, OTHER ==
--- NOTE | 2024-10-20 17:49 | XR ---
EXAMINATION TYPE: XR chest 2V DATE OF EXAM: 10/20/2024 4:37 PM COMPARISON: Chest radiographs from 11/21/2023 CLINICAL INDICATION: Male, 84 years old with history of R05.9 COUGH; [facility] TECHNIQUE: XR chest 2V Frontal and lateral views of the chest. FINDINGS: Lungs/Pleura: No evidence of focal consolidation or pneumothorax. Blunting of the costophrenic angles is present. Pulmonary vascularity: Pulmonary vascular congestion. Heart/mediastinum: Cardiomediastinal silhouette is enlarged and stable. stent grafts projecting over the heart Musculoskeletal: No acute osseous pathology. Midline sternotomy wires are noted. IMPRESSION: Cardiomegaly, pulmonary vascular congestion and bilateral pleural effusions. Correlate with BNP for c ongestive heart failure. [facility], , 10/20/2024 5:46 PM
== END | disposition home or self-care (01) ==
LOC: RADXRMAIN 16:02
PROVIDERS: ATTEND Internal Medicine
DX: I50.9 Heart failure, unspecified (principal); J90 Pleural effusion, not elsewhere classified; R05.9 Cough, unspecified
CPT/HCPCS: 71046